=== PATIENT | female | born 1945 | race Caucasian/White ===

== ENCOUNTER 2022-01-07 10:04 | Inpatient (IN) | payer MEDICARE ==
[2022-01-07] MEDS ORDERED: SODIUM CHLORIDE 0.9% 500 ML 500 ML IV STA (10:15)
[2022-01-07] MEDS ORDERED: IPRATROPIUM-ALBUTEROL 3 ML NEB INHALATION STA (10:19)
[2022-01-07] MEDS ORDERED: methylPREDNISolone SOD SUCCI 125 MG/2 ML VIAL IV STA (10:23)
--- NOTE | 2022-01-07 10:23 | ED ---
Weakness HPI - General Stated complaint: weakness Time Seen by Provider: 01/07/22 10:05 Source: patient, EMS, RN notes reviewed, old records reviewed - History of Present Illness Initial comments: This is a 76-year-old female presents via EMS from home with complaints of weakness for the past few days. Per EMS patient lives with her daughter who reported patient had a fall 4 days ago. Patient complains of pain to her buttocks, pressure ulcers noted in a linear fashion. Patient denies any headache, chest pain or difficulty in breathing. Per EMS patient has a history of COPD and hypothyroid. She states that she smokes 2 packs a day. Does not use home oxygen. MD Complaint: generalized weakness -: days(s) (4) Location: generalized, other (buttocks) Consistency: constant Worsens with: movement, other (Palpation) - Related Data Home Medications Medication Instructions Recorded Confirmed ALPRAZolam [Xanax] 0.25 mg PO BID PRN 01/07/22 01/07/22 Ipratropium/Albuter 20-100Mcg 1 puff INHALATION RT-QID 01/07/22 01/07/22 [Combivent Respimat 20-100Mcg Inhaler] Levothyroxine Sodium [Synthroid] 175 mcg PO Q48H 01/07/22 01/07/22 RX: Citalopram Hydrobromide 30 mg PO DAILY 01/07/22 01/07/22 [CeleXA] RX: Levothyroxine Sodium 150 mcg PO Q48H 01/07/22 01/07/22 risperiDONE [RisperDAL] 2 mg PO HS 01/07/22 01/07/22 Allergies Allergy/AdvReac Type Severity Reaction Status Date / Time procaine [From Novocain] Allergy Dyspnea & Verified 01/07/22 11:59 Hallucinations Review of Systems ROS Statement: Those systems with pertinent positive or pertinent negative responses have been documented in the HPI. ROS Other: All systems not noted in ROS Statement are negative. General Exam Limitations: no limitations General appearance: alert, in no apparent distress Head exam: Present: atraumatic, normocephalic Eye exam: Present: normal appearance. Absent: scleral icterus, conjunctival injection, periorbital swelling, periorbital tenderness ENT exam: Present: mucous membranes dry Neck exam: Present: normal inspection. Absent: tenderness, meningismus, lymphadenopathy, thyromegaly Respiratory exam: Present: wheezes, rales. Absent: respiratory distress, stridor, chest wall tenderness, accessory muscle use GI/Abdominal exam: Present: soft. Absent: distended, tenderness, rigid Rectal exam: Present: normal rectal tone. Absent: bloody stool, mass, tenderness External exam: Present: other (Multiple linear pressure ulcers to sacrum and buttocks, broken blisters) Extremities exam: Present: pedal edema (1+ bilaterally; right leg cool to touch from knee distal with delayed capillary refill). Absent: tenderness, calf tenderness Right Knee exam: Present: full knee extension. Absent: tenderness, swelling Lower Leg exam: Present: swelling. Absent: tenderness Ankle exam: Present: swelling. Absent: tenderness Foot/Toe exam: Present: swelling. Absent: tenderness Neurovascular tendon exam: Present: abnormal cap refill, extremity cold to touch. Absent: pallor, foot drop Left Knee exam: Present: full knee extension. Absent: tenderness, swelling Lower Leg exam: Present: swelling. Absent: tenderness Ankle exam: Present: swelling. Absent: tenderness Foot/Toe exam: Present: swelling. Absent: tenderness Neurovascular tendon exam: Present: no vascular compromise. Absent: abnormal cap refill, extremity cold to touch, pallor, foot drop Back exam: Absent: tenderness, CVA tenderness (R), CVA tenderness (L), paraspinal tenderness, vertebral tenderness, rash noted Neurological exam: Present: alert, oriented X3 Psychiatric exam: Present: normal affect, normal mood Skin exam: Present: warm, dry. Absent: cyanosis, petechiae Course Vital Signs 01/07/22 01/07/22 01/07/22 10:06 10:48 10:51 Temperature 97.4 F L Pulse Rate 87 87 90 Respiratory 20 19 Rate Blood Pressure 95/58 73/45 Blood Pressure 73/45 [Right Arm] O2 Sat by Pulse 87 L 91 L Oximetry 01/07/22 01/07/22 01/07/22 10:57 11:00 11:30 Temperature Pulse Rate 94 88 Respiratory 18 20 20 Rate Blood Pressure 74/50 81/51 Blood Pressure 74/50 81/51 [Right Arm] O2 Sat by Pulse 88 L 90 L Oximetry 01/07/22 01/07/22 01/07/22 13:00 13:52 14:00 Temperature Pulse Rate 86 81 84 Respiratory 16 16 16 Rate Blood Pressure 92/57 91/59 90/62 Blood Pressure [Right Arm] O2 Sat by Pulse 90 L 90 L 91 L Oximetry 01/07/22 14:17 Temperature 96.7 F L Pulse Rate 89 Respiratory 16 Rate Blood Pressure 102/72 Blood Pressure [Right Arm] O2 Sat by Pulse 91 L Oximetry - Reevaluation(s) Reevaluation #1: 01/07/22 10:56 DuoNeb treatment and Solu-Medrol given, oxygen saturation has increased to 93% on 6 L nasal cannula. Patient remains hypotensive, 500 mL bolus ordered. Bilateral radial pulses present and strong. 01/07/22 11:02 Time: 10:56 Reevaluation #2: 01/07/22 12:55 Patient remains awake and alert. No complaints of chest pain or difficulty breathing. Blood pressure remains hypotensive. D-dimer is elevated. Creatinine elevated therefore VQ scan was ordered. Case was discussed with Dr. Nolasco who did come down to bedside to evaluate patient. Time: 12:55 EKG Findings - EKG Results: EKG shows: atrial fibrillation (atrial fibrillation with a ventricular rate of 86, QRS 0.93, QTC 0.407; normal axis; no old EKG to compare) Medical Decision Making - Medical Decision Making Patient presents by EMS with weakness for the past few days and fall 4 days ago. She was found by EMS to be hypotensive with systolic in the 70s, given 500 mL bolus by EMS. She does have a history of hypothyroidism and COPD. Continues to smoke 2 packs of cigarettes a day. Does not use home oxygen. Patient is alert and oriented 4. Denies any pain or difficulty breathing. Only complaint is pain to her buttocks. EKG interpreted by me shows atrial fibrillation with a ventricular rate of 86, P QRS 0.93, QTC 0.407. Patient has no history of atrial fibrillation. Troponin negative at 0.012. Electrolytes show sodium of 129, BUN of 76 with creatinine of 1.92. CK-MB is negative. Magnesium is 2.2. D-dimer is 3.94 due to elevation in creatinine VQ scan was ordered. Ultrasounds done for bilateral leg swelling and cool right lower extremity : Ultrasound bilateral lower extremities negative for DVT. Radiologist interpretation, no ultrasound evidence for DVT in either lower extremity. There is normal flow compressibility and vascular waveforms. Chest x-ray completed for hypoxia : Chest x-ray interpreted by me shows increased lung markings. Radiologist impression small bilateral pleural effusions with multifocal areas of increased markings that could reflect atypical infiltrates or edema. CT brain and C-spine completed due to patient's fall 4 days ago with increased weakness. CT interpreted by me shows no acute skull fracture, no intracranial bleed no midline shift. Radiologist interpretation no acute intracranial process. Degenerative disc changes. Minimal retrolisthesis of C4 on C5 and C5 on C6. Spinal canal stenosis due to endplate spurring at C5-C6. No acute osseous abnormality of the cervical spine. Patient is covid positive. Dr. Nolasco at bedside, consulted ICU for admission. - Lab Data Result diagrams: 01/07/22 12:20 01/07/22 10:31 Lab Results 01/07/22 01/07/22 01/07/22 Range/Units 10:31 10:31 10:31 WBC (3.8-10.6) k/uL RBC (3.80-5.40) m/uL Hgb (11.4-16.0) gm/dL Hct (34.0-46.0) % MCV (80.0-100.0) fL MCH (25.0-35.0) pg MCHC (31.0-37.0) g/dL RDW (11.5-15.5) % Plt Count (150-450) k/uL MPV Neutrophils % % Neutrophils % (Manual) % Band Neuts % (Manual) % Lymphocytes % % Lymphocytes % (Manual) % Monocytes % % Monocytes % (Manual) % Eosinophils % % Basophils % % Neutrophils # (1.3-7.7) k/uL Neutrophils # (Manual) (1.3-7.7) k/uL Lymphocytes # (1.0-4.8) k/uL Lymphocytes # (Manual) (1.0-4.8) k/uL Monocytes # (0-1.0) k/uL Monocytes # (Manual) (0-1.0) k/uL Eosinophils # CULIN[employer] ARTIST Basophils # (0-0.2) k/uL Nucleated RBCs (0-0) /100 WBC Manual Slide Review Hypochromasia PT 12.2 H (9.0-12.0) sec INR 1.2 H (<1.2) APTT 27.1 (22.0-30.0) sec D-Dimer 3.94 H (<0.60) mg/L FEU Sodium 129 L (137-145) mmol/L Potassium 5.1 (3.5-5.1) mmol/L Chloride 99 (98-107) mmol/L Carbon Dioxide 23 (22-30) mmol/L Anion Gap 7 mmol/L BUN 76 H (7-17) mg/dL Creatinine 1.92 H (0.52-1.04) mg/dL Est GFR (CKD-EPI)AfAm 29 (>60 ml/min/1.73 sqM) Est GFR (CKD-EPI)NonAf 25 (>60 ml/min/1.73 sqM) Glucose 102 H (74-99) mg/dL Plasma Lactic Acid Marshall (0.7-2.0) mmol/L Calcium 7.4 L (8.4-10.2) mg/dL Magnesium 2.2 (1.6-2.3) mg/dL Total Bilirubin 1.1 (0.2-1.3) mg/dL AST 37 H (14-36) U/L ALT 13 (4-34) U/L Alkaline Phosphatase 65 (38-126) U/L CK-MB (CK-2) (0.0-2.4) ng/mL Troponin I (0.000-0.034) ng/mL NT-Pro-B Natriuret Pep pg/mL Total Protein 4.4 L (6.3-8.2) g/dL Albumin 2.1 L (3.5-5.0) g/dL Urine Color Urine Appearance (Clear) Urine pH (5.0-8.0) Ur Specific [place] (1.001-1.035) Urine Protein (Negative) Urine Glucose (UA) (Negative) Urine Ketones (Negative) Urine Blood (Negative) Urine Nitrite (Negative) Urine Bilirubin (Negative) Urine Urobilinogen (<2.0) mg/dL Ur Leukocyte Esterase (Negative) Urine RBC (0-5) /hpf Urine WBC (0-5) /hpf Ur Squamous Epith Cells (0-4) /hpf Urine Bacteria (None) /hpf Hyaline Casts (0-2) /lpf Urine Mucus (None) /hpf Stool Occult Blood (Negative) Coronavirus (PCR) (Not Detectd) 01/07/22 01/07/22 01/07/22 Range/Units 10:31 10:31 10:31 WBC (3.8-10.6) k/uL RBC (3.80-5.40) m/uL Hgb (11.4-16.0) gm/dL Hct (34.0-46.0) % MCV (80.0-100.0) fL MCH (25.0-35.0) pg MCHC (31.0-37.0) g/dL RDW (11.5-15.5) % Plt Count (150-450) k/uL MPV Neutrophils % % Neutrophils % (Manual) % Band Neuts % (Manual) % Lymphocytes % % Lymphocytes % (Manual) % Monocytes % % Monocytes % (Manual) % Eosinophils % % Basophils % % Neutrophils # (1.3-7.7) k/uL Neutrophils # (Manual) (1.3-7.7) k/uL Lymphocytes # (1.0-4.8) k/uL Lymphocytes # (Manual) (1.0-4.8) k/uL Monocytes # (0-1.0) k/uL Monocytes # (Manual) (0-1.0) k/uL Eosinophils # Basophils # (0-0.2) k/uL Nucleated RBCs (0-0) /100 WBC Manual Slide Review Hypochromasia PT (9.0-12.0) sec INR (<1.2) APTT (22.0-30.0) sec D-Dimer (<0.60) mg/L FEU Sodium (137-145) mmol/L Potassium (3.5-5.1) mmol/L Chloride (98-107) mmol/L Carbon Dioxide (22-30) mmol/L Anion Gap mmol/L BUN (7-17) mg/dL Creatinine (0.52-1.04) mg/dL Est GFR (CKD-EPI)AfAm (>60 ml/min/1.73 sqM) Est GFR (CKD-EPI)NonAf (>60 ml/min/1.73 sqM) Glucose (74-99) mg/dL Plasma Lactic Acid Marshall 1.7 (0.7-2.0) mmol/L Calcium (8.4-10.2) mg/dL Magnesium (1.6-2.3) mg/dL Total Bilirubin (0.2-1.3) mg/dL AST (14-36) U/L ALT (4-34) U/L Alkaline Phosphatase (38-126) U/L CK-MB (CK-2) 2.0 (0.0-2.4) ng/mL Troponin I <0.012 (0.000-0.034) ng/mL NT-Pro-B Natriuret Pep 2580 pg/mL Total Protein (6.3-8.2) g/dL Albumin (3.5-5.0) g/dL Urine Color Urine Appearance (Clear) Urine pH (5.0-8.0) Ur Specific [place] (1.001-1.035) Urine Protein (Negative) Urine Glucose (UA) (Negative) Urine Ketones (Negative) Urine Blood (Negative) Urine Nitrite (Negative) Urine Bilirubin (Negative) Urine Urobilinogen (<2.0) mg/dL Ur Leukocyte Esterase (Negative) Urine RBC (0-5) /hpf Urine WBC (0-5) /hpf Ur Squamous Epith Cells (0-4) /hpf Urine Bacteria (None) /hpf Hyaline Casts (0-2) /lpf Urine Mucus (None) /hpf Stool Occult Blood (Negative) Coronavirus (PCR) (Not Detectd) 01/07/22 01/07/22 01/07/22 Range/Units 10:31 12:20 13:40 WBC 14.4 H (3.8-10.6) k/uL RBC 4.42 (3.80-5.40) m/uL Hgb 12.2 (11.4-16.0) gm/dL Hct 37.9 (34.0-46.0) % MCV 85.7 (80.0-100.0) fL MCH 27.7 (25.0-35.0) pg MCHC 32.3 (31.0-37.0) g/dL RDW 14.2 (11.5-15.5) % Plt Count 476 H (150-450) k/uL MPV 8.5 Neutrophils % % Neutrophils % (Manual) 83 % Band Neuts % (Manual) 9 % Lymphocytes % % Lymphocytes % (Manual) 5 % Monocytes % % Monocytes % (Manual) 3 % Eosinophils % % Basophils % % Neutrophils # (1.3-7.7) k/uL Neutrophils # (Manual) 13.20 H (1.3-7.7) k/uL Lymphocytes # (1.0-4.8) k/uL Lymphocytes # (Manual) 0.72 L (1.0-4.8) k/uL Monocytes # (0-1.0) k/uL Monocytes # (Manual) 0.43 (0-1.0) k/uL Eosinophils # Basophils # (0-0.2) k/uL Nucleated RBCs 0 (0-0) /100 WBC Manual Slide Review Performed Hypochromasia Slight PT (9.0-12.0) sec INR (<1.2) APTT (22.0-30.0) sec D-Dimer (<0.60) mg/L FEU Sodium (137-145) mmol/L Potassium (3.5-5.1) mmol/L Chloride (98-107) mmol/L Carbon Dioxide (22-30) mmol/L Anion Gap mmol/L BUN (7-17) mg/dL Creatinine (0.52-1.04) mg/dL Est GFR (CKD-EPI)AfAm (>60 ml/min/1.73 sqM) Est GFR (CKD-EPI)NonAf (>60 ml/min/1.73 sqM) Glucose (74-99) mg/dL Plasma Lactic Acid Marshall (0.7-2.0) mmol/L Calcium (8.4-10.2) mg/dL Magnesium (1.6-2.3) mg/dL Total Bilirubin (0.2-1.3) mg/dL AST (14-36) U/L ALT (4-34) U/L Alkaline Phosphatase (38-126) U/L CK-MB (CK-2) (0.0-2.4) ng/mL Troponin I (0.000-0.034) ng/mL NT-Pro-B Natriuret Pep pg/mL Total Protein (6.3-8.2) g/dL Albumin (3.5-5.0) g/dL Urine Color Yellow Urine Appearance Cloudy H (Clear) Urine pH 5.0 (5.0-8.0) Ur Specific [place] 1.016 (1.001-1.035) Urine Protein 1+ H (Negative) Urine Glucose (UA) Negative (Negative) Urine Ketones Negative (Negative) Urine Blood Trace H (Negative) Urine Nitrite Negative (Negative) Urine Bilirubin 1+ H (Negative) Urine Urobilinogen 3.0 (<2.0) mg/dL Ur Leukocyte Esterase Negative (Negative) Urine RBC 1 (0-5) /hpf Urine WBC 4 (0-5) /hpf Ur Squamous Epith Cells 1 (0-4) /hpf Urine Bacteria Rare H (None) /hpf Hyaline Casts 18 H (0-2) /lpf Urine Mucus Occasional H (None) /hpf Stool Occult Blood Negative (Negative) Coronavirus (PCR) (Not Detectd) 01/07/22 Range/Units 13:41 WBC (3.8-10.6) k/uL RBC (3.80-5.40) m/uL Hgb (11.4-16.0) gm/dL Hct (34.0-46.0) % MCV (80.0-100.0) fL MCH (25.0-35.0) pg MCHC (31.0-37.0) g/dL RDW (11.5-15.5) % Plt Count (150-450) k/uL MPV Neutrophils % % Neutrophils % (Manual) % Band Neuts % (Manual) % Lymphocytes % % Lymphocytes % (Manual) % Monocytes % % Monocytes % (Manual) % Eosinophils % % Basophils % % Neutrophils # (1.3-7.7) k/uL Neutrophils # (Manual) (1.3-7.7) k/uL Lymphocytes # (1.0-4.8) k/uL Lymphocytes # (Manual) (1.0-4.8) k/uL Monocytes # (0-1.0) k/uL Monocytes # (Manual) (0-1.0) k/uL Eosinophils # Basophils # (0-0.2) k/uL Nucleated RBCs (0-0) /100 WBC Manual Slide Review Hypochromasia PT (9.0-12.0) sec INR (<1.2) APTT (22.0-30.0) sec D-Dimer (<0.60) mg/L FEU Sodium (137-145) mmol/L Potassium (3.5-5.1) mmol/L Chloride (98-107) mmol/L Carbon Dioxide (22-30) mmol/L Anion Gap mmol/L BUN (7-17) mg/dL Creatinine (0.52-1.04) mg/dL Est GFR (CKD-EPI)AfAm (>60 ml/min/1.73 sqM) Est GFR (CKD-EPI)NonAf (>60 ml/min/1.73 sqM) Glucose (74-99) mg/dL Plasma Lactic Acid [place] (0.7-2.0) mmol/L Calcium (8.4-10.2) mg/dL Magnesium (1.6-2.3) mg/dL Total Bilirubin (0.2-1.3) mg/dL AST (14-36) U/L ALT (4-34) U/L Alkaline Phosphatase (38-126) U/L CK-MB (CK-2) (0.0-2.4) ng/mL Troponin I (0.000-0.034) ng/mL NT-Pro-B Natriuret Pep pg/mL Total Protein (6.3-8.2) g/dL Albumin (3.5-5.0) g/dL Urine Color Urine Appearance (Clear) Urine pH (5.0-8.0) Ur Specific [place] (1.001-1.035) Urine Protein (Negative) Urine Glucose (UA) (Negative) Urine Ketones (Negative) Urine Blood (Negative) Urine Nitrite (Negative) Urine Bilirubin (Negative) Urine Urobilinogen (<2.0) mg/dL Ur Leukocyte Esterase (Negative) Urine RBC (0-5) /hpf Urine WBC (0-5) /hpf Ur Squamous Epith Cells (0-4) /hpf Urine Bacteria (None) /hpf Hyaline Casts (0-2) /lpf Urine Mucus (None) /hpf Stool Occult Blood (Negative) Coronavirus (PCR) Detected A (Not Detectd) Critical Care Time Critical Care Time: Yes (35) Disposition Clinical Impression: Hypoxia, Atrial fibrillation, new onset, COPD exacerbation, Weakness, Fall, Pressure ulcer of sacral region, stage 2, Hypotension, NIKOS (acute kidney injury), COVID-19 Disposition: ADMITTED IP TO THIS [facility] Decision Date: 01/07/22 Decision Time: 13:13
[2022-01-07] MEDS ORDERED: KETOROLAC 15 MG/ML 1 ML VIAL IM STA (11:18)
[2022-01-07] MEDS ORDERED: ORPHENADRINE 30 MG/ML 2 ML VIAL IM STA (11:18)
[2022-01-07 11:36] LABS: Albumin 2.1 g/dL (3.5-5.0); Calcium 7.4 mg/dL (8.4-10.2); Magnesium 2.2 mg/dL (1.6-2.3); Potassium 5.1 mmol/L (3.5-5.1); Total Bilirubin 1.1 mg/dL (0.2-1.3); Total Protein 4.4 g/dL (6.3-8.2)
[2022-01-07 11:39] LABS: INR 1.2 (<1.2); Partial Thromboplastin Time 27.1 sec (22.0-30.0); Prothrombin Time 12.2 sec (9.0-12.0)
[2022-01-07 11:54] LABS: Troponin I <0.012 ng/mL (0.000-0.034)
--- NOTE | 2022-01-07 11:57 | US ---
EXAMINATION TYPE: US venous doppler duplex LE DATE OF EXAM: 01/07/2022 11:52 AM COMPARISON: NONE CLINICAL HISTORY: pain cold extremity. SIDE PERFORMED: Bilateral TECHNIQUE: The lower extremity deep venous system is examined utilizing real time linear array sonog jamila with graded compression, doppler sonography and color-flow sonography. VESSELS IMAGED: Common Femoral Vein Deep Femoral Vein Greater Saphenous Vein * Femoral Vein Popliteal Vein Small Saphenous Vein * Proximal Calf Veins (* superficial vessels) Right Leg: Negative for DVT Left Leg: Negative for DVT Grayscale, color doppler, spectral doppler imaging performed of the deep veins of the bilateral lower extremities. There is normal flow, compressibility, vascular waveforms. IMPRESSION: No ultrasound evidence for acute DVT in either lower extremity.
--- NOTE | 2022-01-07 12:08 | XR ---
EXAMINATION TYPE: XR chest 2V DATE OF EXAM: 01/07/2022 COMPARISON: NONE HISTORY: Weakness. TECHNIQUE: Frontal and lateral views of the chest are obtained. FINDINGS: Reticular increased markings bilaterally. Small to tiny bilateral pleural effusions. No pn eumothorax seen bilaterally. The cardiac silhouette size is within normal limits. The osseous struc tures are intact. IMPRESSION: Small to tiny bilateral pleural effusions with multifocal areas of increased reticular m arkings could reflect multifocal atypical infiltrates and/or edema. Background Chronic fibrotic redding e cannot be excluded. Correlate clinically and with old outside x-ray and/or CT would be extremely be neficial.
--- NOTE | 2022-01-07 12:27 | CT ---
EXAMINATION TYPE: CT brain bel hooker con DATE OF EXAM: 01/07/2022 COMPARISON: HISTORY: Fall, weakness CT DLP: 1344.3 mGycm, Automated exposure control for dose reduction was used. CONTRAST: None CT of the brain is performed utilizing 3 mm thick sections through the posterior fossa and 3 mm thick sections through the remaining calvarium. Study is performed within 24 hours of arrival to the hospital. No abnormal hyperdensity is present to suggest an acute intracranial hemorrhage. No mass lesion is evident. No acute infarcts are evident. Mild scattered periventricular white matter hypodensities are present , likely on the basis of chronic white matter ischemic change. Ventricles and sulci are diffusely mildly prominent for the patient age. Air-fluid levels are within the bilateral maxillary sinuses. Correlate for acute maxillary sinusitis. No suspicious fractures are identified. IMPRESSIONS: 1. No acute intracranial process. CT cervical spine. COMPARISON: None CT of the cervical spine is performed in the axial plane at 2 mm thick sections. Reconstructed image s in the coronal, and sagittal plane are reviewed on the computer. No acute fractures are evident. Very minimal retrolisthesis of C4 on C5 and C5 on C6 may be present. There is diffuse loss of disc height throughout the cervical spine greatest at C4-5 C5-6 C6-7 and C7- T1. Vertebral body heights are preserved. Endplate spurring is contributing to spinal canal narrowing at the C5-6 level. AP spinal canal stenos is is 0.7 cm. Mild right foraminal narrowing is present at C3-4 from uncovertebral joint hypertrophy and facet hype rtrophy. Uncovertebral joint hypertrophy is moderate bilateral foraminal stenosis C4-5 and on the lef t at C5-6. More severe right foraminal stenosis from uncovertebral joint hypertrophy is present C5-6. Moderate right foraminal stenosis at C6-7 is present from uncovertebral joint hypertrophy. Note is made of pulmonary fibrosis within the upper lung singleton. Underlying consolidation or infiltra te on the right may be present. Correlate for pneumonia. Other etiologies including neoplasm are not excluded. IMPRESSIONS: 1. Minimal retrolisthesis of C4 on C5 and C5 on C6 may be present. 2. Degenerative disc changes diffusely discussed above. 3. Foraminal stenosis due to uncovertebral joint hypertrophy within the mid and lower cervical spine. 4. Correlate for pneumonia versus other etiologies including pulmonary fibrosis and neoplasm within t he upper lung singleton greater at the right upper lung field within the [id number]. 5. Spinal canal stenosis due to endplate spurring C5-6. 6. No acute osseous abnormality cervical spine.
[2022-01-07 12:45] LABS: HCT 37.9 % (34.0-46.0); HGB 12.2 gm/dL (11.4-16.0); Hypochromasia Slight; MCH 27.7 pg (25.0-35.0); MCHC 32.3 g/dL (31.0-37.0); MCV 85.7 fL (80.0-100.0); Mean Platelet Volume 8.5; Platelet Count 476 k/uL (150-450); RBC 4.42 m/uL (3.80-5.40); RDW 14.2 % (11.5-15.5); WBC 14.4 k/uL (3.8-10.6)
[2022-01-07] MEDS ORDERED: PIPERACILLIN-TAZOBACTAM 3.375 GM in SODIUM CHLORIDE 0.9% 100 ML IVPB STA (12:51)
[2022-01-07] MEDS ORDERED: SODIUM CHLORIDE 0.9% 1,000 ML IV STA (12:53)
[2022-01-07] MEDS ORDERED: VANCOMYCIN IV PER PHARMACY 1 EACH MISC MISCELLANE PRN (12:53)
[2022-01-07] MEDS ORDERED: NOREPINEPHRINE 4 MG in SODIUM CHLORIDE 0.9% 250 ML IV ONE (13:00)
[2022-01-07 13:32] LABS: Band Neutrophils % 9 %; Lymphocytes # (M) 0.72 k/uL (1.0-4.8); Monocytes # (M) 0.43 k/uL (0-1.0); Neutrophils % (M) 83 %; Nucleated Red Blood Cells 0 /100 WBC (0-0); Total Cells Counted 100
[2022-01-07] MEDS ORDERED: VANCOMYCIN 1,250 MG in SODIUM CHLORIDE 0.9% 250 ML IVPB ONE (14:00)
[2022-01-07] MEDS ORDERED: NALOXONE 0.4 MG/ML 1 ML VIAL IV PRN (14:04)
[2022-01-07] MEDS: SODIUM CHLORIDE 0.9% 1,000 ML IV SCH ×2 (14:08→21:06)
[2022-01-07] MEDS: PANTOPRAZOLE 40 MG/10 ML VIAL IV SCH (14:11)
[2022-01-07 14:25] LABS: Appearance,Urine Cloudy (Clear); Bacteria,Urine Rare /hpf; Bilirubin,Urine 1+ (Negative); Blood,Urine Trace (Negative); Color,Urine Yellow; Glucose,Urine (UA) Negative (Negative); Hyaline Casts,Urine 18 /lpf (0-2); Ketones,Urine Negative (Negative); Leukocyte Esterase,Urine Negative (Negative); Mucus,Urine Occasional /hpf; Nitrite,Urine Negative (Negative); Protein,Urine 1+ (Negative); RBC,Urine 1 /hpf (0-5); Specific Gravity,Urine 1.016 (1.001-1.035); Squamous Epithelial Cell,Urine 1 /hpf (0-4); WBC,Urine 4 /hpf (0-5)
--- NOTE | 2022-01-07 15:02 | P.CNPUL ---
History of Present Illness Consult date: 01/07/22 Requesting physician: Gini Wayne Reason for consult: pneumonia Chief complaint: Weakness for the last 4 days History of present illness: This is a 76-year-old female who is not a great historian, her daughter is at bedside, patient is known to have history of hypothyroidism, COPD, history gene ralized anxiety disorder, patient has been weak for the last few days. According to the daughter, patient fell 4 days ago, and has been complaining of pain to her buttocks. Patient also had some intermittent cough, shortness of breath, and according to the daughter the patient has not been taking her medications including her thyroid medicine and her Combivent for COPD. Patient is a heavy smoker, she smoked 2 packs a day for many years. Does not use oxygen at home. Workup in the ER included a CBC which showed leukocytosis. Elevated d-dimer of 3.94. Abnormal renal profile with a BUN of 76 creatinine of 1.92 and low sodium of 129, elevated BNP level of 2580, normal troponin, and normal liver enzymes. Patient was also noted to have positive PCR for COVID-19, chest x-ray showed multifocal reticular markings and multifocal atypical infiltrates. Possible underlying pulmonary fibrosis. No old x-ray for comparison. Patient was also noted to be relatively hypotensive requiring fluid boluses with slight improvement of the blood pressure. I saw this patient in the ER, and I recommen ded admitting the patient to the ICU. In the meantime I ordered a high- resolution CT of the chest, started the patient on Remdesivir, patient is on 6 L nasal cannula, recommended fluid boluses, empiric antibiotics, pro-calcitonin level is pending, and order the COVID-19 cocktail. Review of Systems Constitutional: Weakness and fatigue no fever, no chills. HEENT: Negative. Pulmonary: Productive cough with yellow phlegm. Cardiac: Negative GI: Negative Genitourinary: Negative Musculoskeletal: Recent fall and pain in the buttocks area. Hematologic: Negative Psychiatric: History of anxiety and possible underlying dementia Neurologic: Negative Skin: Negative. Past Medical History Past Medical History: COPD History of Any Multi-Drug Resistant Organisms: None Reported Past Surgical History: Unable to Obtain Past Psychological History: No Psychological Hx Reported Smoking Status: Current every day smoker Past Alcohol Use History: Unable to Obtain Past Drug Use History: Unable to Obtain Medications and Allergies Home Medications Medication Instructions Recorded Confirmed Type ALPRAZolam [Xanax] 0.25 mg PO BID PRN 01/07/22 01/07/22 History Citalopram Hydrobromide [CeleXA] 30 mg PO DAILY 01/07/22 01/07/22 History Ipratropium/Albuter 20-100Mcg 1 puff INHALATION RT-QID 01/07/22 01/07/22 History [Combivent Respimat 20-100Mcg Inhaler] Levothyroxine Sodium 150 mcg PO Q48H 01/07/22 01/07/22 History Levothyroxine Sodium [Synthroid] 175 mcg PO Q48H 01/07/22 01/07/22 History risperiDONE [RisperDAL] 2 mg PO HS 01/07/22 01/07/22 History Allergies Allergy/AdvReac Type Severity Reaction Status Date / Time procaine [From Novocain] Allergy Dyspnea & Verified 01/07/22 11:59 Hallucinations Physical Exam Vitals: Vital Signs Temp Pulse Resp BP BP Pulse Ox 01/07/22 14:17 96.7 F L 89 16 102/72 91 L 01/07/22 14:00 84 16 90/62 91 L 01/07/22 13:52 81 16 91/59 90 L 01/07/22 13:00 86 16 92/57 90 L 01/07/22 11:30 20 01/07/22 11:00 88 20 81/51 81/51 90 L 01/07/22 10:57 94 18 74/50 74/50 88 L 01/07/22 10:51 90 19 73/45 73/45 91 L 01/07/22 10:48 87 01/07/22 10:06 97.4 F L 87 20 95/58 87 L Intake and Output 01/06/22 01/07/22 01/07/22 22:59 06:59 14:59 Other: Weight 61.235 kg Physical Exam: Revealed 76-year-old female in no distress however she looks confused, dehydrated, on 6 L nasal cannula. Head: Atraumatic, normocephalic. HEENT:[Neck is supple.] [No neck masses.] [No thyromegaly.] [No JVD.] Dry mucous membranes. Chest: [Symmetrical chest expansion crackles at the bases bilaterally. Cardiac Exam: [Normal S1 and S2, no S3 gallop, no murmur.] Abdomen: [Soft, nontender, no megaly, no rebound, no guarding, normal bowel sounds.] Extremities: [No clubbing, no edema, no cyanosis.] Neurological Exam: [No focal neurologic deficit.] Patient is a poor historian and she seems confused. Psychiatric: Depressed mood, flat affect, cannot fully assess mental status. Patient seems to be a bit confused. Skin: No rashes. Musculoskeletal: No deformities and no limitation of range of motion Results - Laboratory Findings CBC and BMP: 01/07/22 12:20 01/07/22 10:31 PT/INR, D-dimer PT 12.2 sec (9.0-12.0) H 01/07/22 10:31 INR 1.2 (<1.2) H 01/07/22 10:31 D-Dimer 3.94 mg/L FEU (<0.60) H 01/07/22 10:31 Abnormal lab findings: Abnormal Labs 01/07/22 01/07/22 01/07/22 10:31 10:31 10:31 WBC Plt Count Neutrophils # (Manual) Lymphocytes # (Manual) PT 12.2 H INR 1.2 H D-Dimer 3.94 H Sodium 129 L BUN 76 H Creatinine 1.92 H Glucose 102 H Calcium 7.4 L AST 37 H Total Protein 4.4 L Albumin 2.1 L Urine Appearance Cloudy H Urine Protein 1+ H Urine Blood Trace H Urine Bilirubin 1+ H Urine Bacteria Rare H Hyaline Casts 18 H Urine Mucus Occasional H Coronavirus (PCR) 01/07/22 01/07/22 12:20 13:41 WBC 14.4 H Plt Count 476 H Neutrophils # (Manual) 13.20 H Lymphocytes # (Manual) 0.72 L PT INR D-Dimer Sodium BUN Creatinine Glucose Calcium AST Total Protein Albumin Urine Appearance Urine Protein Urine Blood Urine Bilirubin Urine Bacteria Hyaline Casts Urine Mucus Coronavirus (PCR) Detected A - Diagnostic Findings Chest x-ray: image reviewed (As noted in HPI suspect diffuse interstitial infiltrates and I suspect possible underlying component of interstitial lung disease) Assessment and Plan Assessment: Impression: Acute hypoxic respiratory failure secondary to acute COVID-19 pneumonia, underlying bacterial pneumonia is not entirely ruled out but felt to be less likely, pro-calcitonin level is pending Possible interstitial lung disease/pulmonary fibrosis, likely contributing to her acute hypoxic respiratory failure Hypotension, suspect sepsis, patient is presenting with a septic picture and also dehydration picture. History of underlying COPD does not seem to be active at this point. But likely contributing to her hypoxic respiratory failure History of hypothyroidism History of generalized anxiety disorder Elevated d-dimer but negative venous Doppler for DVT, cannot perform CT angiogram of the chest mostly because of her renal functioning Acute dehydration Acute kidney injury secondary to dehydration Recommendation: Continue present supportive care measures Empiric antibiotics however will discontinue Percocet started level is normal Venous Doppler noted, negative for DVT High-resolution CT of the chest to rule out interstitial lung disease Start patient on Remdesivir, close monitoring of renal profile, I believe the renal profile with improve with hydration COVID-19 cocktail. Bronchodilators and IV Decadron Continue IV fluids and boluses, monitor renal status after IV fluids Lactic acid is pending patient will be admitted to the ICU and we will follow Prognosis is guarded Time with Patient: Greater than 30
--- NOTE | 2022-01-07 15:33 | NM ---
EXAMINATION TYPE: NM pul perfusion DATE OF EXAM: 01/07/2022 COMPARISON: Same day chest x-ray HISTORY: Shortness of breath and weakness. Abnormal chest x-ray. Following administration of 5.2 mCi Tc 99m MAA. Images obtained post injection. FINDINGS: Heterogeneity with several scattered areas of nonsegmental perfusion defects are identified bilaterally. Findings more prominent in the lower lungs. IMPRESSION: Nondiagnostic (low or intermediate probability)
[2022-01-07] MEDS ORDERED: REMDESIVIR 200 MG in SODIUM CHLORIDE 0.9% 250 ML IVPB ONE (16:00)
[2022-01-07 16:10] LABS: Glucose,Whole Blood 110 mg/dL (70-110)
[2022-01-07] MEDS: ALBUTEROL HFA INHALER INHALATION SCH ×2 (16:22→19:23)
[2022-01-07] MEDS: DEXAMETHASONE SOD PHOSPHATE 10 MG/ML 1 ML VIAL IVP SCH (16:26)
[2022-01-07] MEDS: ZINC SULFATE 220 MG CAP PO SCH (16:27)
[2022-01-07] MEDS: CHOLECALCIFEROL 25 MCG (1000 IU) TABLET PO SCH (16:27)
--- NOTE | 2022-01-07 16:27 | P.GSCN ---
History of Present Illness Consult date: 01/07/22 Reason for Consult: Ischemic Right foot Requesting physician: Jayy Nolasco History of present illness: This is a 76 year old female who presented to the emergency room with complaints of weakness. She has a past medical history including hypothyroidism, COPD who smokes 2 PPD. She was alos with complaints of shortness of breath, and pressure sores on her buttocks. Also reported she may have fallen. On admission she was noted to have swelling in right lower extremity and underwent Venous duplex which was negative bilaterally. Right lower extremity was reported as cool to the touch with delayed capillary refill. Vascular surgery was consulted for ischemic right foot. Patient underwent arterial duplex of lower extremities with good waveform and reported IVONNE right 0.86, left 0.83. Patient is positive for COVID-19. Review of Systems Review of systems completed due to patient's decreased responsiveness. She is alert and oriented however difficult to obtain history. ROS unobtainable: due to mental status Past Medical History Past Medical History: COPD History of Any Multi-Drug Resistant Organisms: None Reported Past Surgical History: Unable to Obtain Past Psychological History: No Psychological Hx Reported Smoking Status: Current every day smoker Past Alcohol Use History: Unable to Obtain Past Drug Use History: Unable to Obtain Medications and Allergies Home Medications Medication Instructions Recorded Confirmed Type ALPRAZolam [Xanax] 0.25 mg PO BID PRN 01/07/22 01/07/22 History Citalopram Hydrobromide [CeleXA] 30 mg PO DAILY 01/07/22 01/07/22 History Ipratropium/Albuter 20-100Mcg 1 puff INHALATION RT-QID 01/07/22 01/07/22 History [Combivent Respimat 20-100Mcg Inhaler] Levothyroxine Sodium 150 mcg PO Q48H 01/07/22 01/07/22 History Levothyroxine Sodium [Synthroid] 175 mcg PO Q48H 01/07/22 01/07/22 History risperiDONE [RisperDAL] 2 mg PO HS 01/07/22 01/07/22 History Allergies Allergy/AdvReac Type Severity Reaction Status Date / Time procaine [From Novocain] Allergy Dyspnea & Verified 01/07/22 11:59 Hallucinations Surgical - Exam Vital Signs Temp Pulse Resp BP Pulse Ox 97.4 F L 87 20 95/58 87 L 11/28/22 10:06 01/07/22 10:06 01/07/22 10:06 01/07/22 10:06 01/07/22 10:06 General appearance: The patient is alert, oriented, appears in no acute distress. HET: Head is normocephalic and atraumatic. Pupils are equal and reactive. Neck: Supple without lymphadenopathy. Trachea midline. No audible carotid bruit. Heart: Regular. Lungs: Equal expansion, normal respiratory effort. Abdomen: Soft, nontender, nondistended. Extremities: Normal skin color and turgor. Regular palpable bilateral femoral and popliteal pulses.Right lower extremity with some swelling, non-tender to palpation, slightly cooler to the touch than left lower extremity. Capillary re fill 4-6 seconds. Bilateral DP and PT Doppler signals obtained. Neurological: No focal deficits. Alert and oriented. Results - Labs 01/07/22 12:20 01/07/22 10:31 Abnormal Lab Results - Last 24 Hours (Table) 01/07/22 01/07/22 01/07/22 Range/Units 10:31 10:31 10:31 WBC (3.8-10.6) k/uL Plt Count (150-450) k/uL Neutrophils # (Manual) (1.3-7.7) k/uL Lymphocytes # (Manual) (1.0-4.8) k/uL PT 12.2 H (9.0-12.0) sec INR 1.2 H (<1.2) D-Dimer 3.94 H (<0.60) mg/L FEU Sodium 129 L (137-145) mmol/L BUN 76 H (7-17) mg/dL Creatinine 1.92 H (0.52-1.04) mg/dL Glucose 102 H (74-99) mg/dL Calcium 7.4 L (8.4-10.2) mg/dL AST 37 H (14-36) U/L Total Protein 4.4 L (6.3-8.2) g/dL Albumin 2.1 L (3.5-5.0) g/dL Urine Appearance Cloudy H (Clear) Urine Protein 1+ H (Negative) Urine Blood Trace H (Negative) Urine Bilirubin 1+ H (Negative) Urine Bacteria Rare H (None) /hpf Hyaline Casts 18 H (0-2) /lpf Urine Mucus Occasional H (None) /hpf Coronavirus (PCR) (Not Detectd) 01/07/22 01/07/22 Range/Units 12:20 13:41 WBC 14.4 H (3.8-10.6) k/uL Plt Count 476 H (150-450) k/uL Neutrophils # (Manual) 13.20 H (1.3-7.7) k/uL Lymphocytes # (Manual) 0.72 L (1.0-4.8) k/uL PT (9.0-12.0) sec INR (<1.2) D-Dimer (<0.60) mg/L FEU Sodium (137-145) mmol/L BUN (7-17) mg/dL Creatinine (0.52-1.04) mg/dL Glucose (74-99) mg/dL Calcium (8.4-10.2) mg/dL AST (14-36) U/L Total Protein (6.3-8.2) g/dL Albumin (3.5-5.0) g/dL Urine Appearance (Clear) Urine Protein (Negative) Urine Blood (Negative) Urine Bilirubin (Negative) Urine Bacteria (None) /hpf Hyaline Casts (0-2) /lpf Urine Mucus (None) /hpf Coronavirus (PCR) Detected A (Not Detectd) Diabetes panel 01/07/22 Range/Units 10:31 Sodium 129 L (137-145) mmol/L Potassium 5.1 (3.5-5.1) mmol/L Chloride 99 (98-107) mmol/L Carbon Dioxide 23 (22-30) mmol/L BUN 76 H (7-17) mg/dL Creatinine 1.92 H (0.52-1.04) mg/dL Glucose 102 H (74-99) mg/dL Calcium 7.4 L (8.4-10.2) mg/dL AST 37 H (14-36) U/L ALT 13 (4-34) U/L Alkaline Phosphatase 65 (38-126) U/L Total Protein 4.4 L (6.3-8.2) g/dL Albumin 2.1 L (3.5-5.0) g/dL Calcium panel 01/07/22 Range/Units 10:31 Calcium 7.4 L (8.4-10.2) mg/dL Albumin 2.1 L (3.5-5.0) g/dL Pituitary panel 01/07/22 Range/Units 10:31 Sodium 129 L (137-145) mmol/L Potassium 5.1 (3.5-5.1) mmol/L Chloride 99 (98-107) mmol/L Carbon Dioxide 23 (22-30) mmol/L BUN 76 H (7-17) mg/dL Creatinine 1.92 H (0.52-1.04) mg/dL Glucose 102 H (74-99) mg/dL Calcium 7.4 L (8.4-10.2) mg/dL Adrenal panel 01/07/22 Range/Units 10:31 Sodium 129 L (137-145) mmol/L Potassium 5.1 (3.5-5.1) mmol/L Chloride 99 (98-107) mmol/L Carbon Dioxide 23 (22-30) mmol/L BUN 76 H (7-17) mg/dL Creatinine 1.92 H (0.52-1.04) mg/dL Glucose 102 H (74-99) mg/dL Calcium 7.4 L (8.4-10.2) mg/dL Total Bilirubin 1.1 (0.2-1.3) mg/dL AST 37 H (14-36) U/L ALT 13 (4-34) U/L Alkaline Phosphatase 65 (38-126) U/L Total Protein 4.4 L (6.3-8.2) g/dL Albumin 2.1 L (3.5-5.0) g/dL Assessment and Plan Assessment: 1. Right lower extremity cool to touch, IVONNE 0.86 right, 0.83 left patient with mild peripheral arterial disease. 2. COVID-19 infection 3. COPD 4. Current tobacco abuse, 2 pack per day smoker Plan: Patient was seen and evaluated in the ICU. Right lower extremity mildly cold to the touch compared to left. Slight delay in capillary refill however was able to obtain Doppler signals. Patient with no pain to lower extremities. ABIs reviewed, patient with possible mild peripheral arterial disease. No surgical intervention recommended at this time. We'll continue to monitor. Would recommend outpatient follow-up and continued workup. Thank you for this consultation, we will continue to follow The impression and plan of care has been dictated as directed. Dr. Amaya I performed a history and examination of this patient, discussed the same with the dictator. I agree with the dictator's note ,documented as a scribe. Any additional findings or plans will be noted.t
--- NOTE | 2022-01-07 16:37 | CT ---
EXAMINATION TYPE: CT chest wo con DATE OF EXAM: 01/07/2022 COMPARISON: None HISTORY: Interstitial lung disease. Covid pneumonia. CT DLP: 295.7 mGycm, Automated exposure control for dose reduction was used. CONTRAST: Performed injected with 0 mL of Isovue 300. TECHNIQUE: Axial images were obtained at 5 mm thick sections. Reconstructed images are reviewed on [employer] computer in the coronal plane. FINDINGS: The thyroid is not identified. Extensive infiltrates are within the bilateral lungs. These appear to be predominantly adjacent to th e major fissure bilaterally in the lower dependent lung singleton. Small bilateral pleural effusions may be present. Emphysematous changes are evident. Pulmonary fibrosis could be considered. Suspicious ma ss is not clearly identified although smaller masses may be difficult to identify with the large cons olidations present. Monitoring is recommended. Small scattered nodes are present within the mediastinum. Enlarged mediastinal adenopathy is not adriana ntified. The ascending aorta diameter at the level of the main pulmonary artery is 3.8 cm. The main pulmonary artery diameter at the bifurcation is 2.[address] sections are obtained through the upper abdomen. Mild diffuse thickening of the adrenal gl ands may be present. There is a low density structure within the superior right kidney may be a lipom a. Cholelithiasis is present. IMPRESSIONS: 1. Scattered bilateral consolidations. Infectious etiologies and/or pulmonary fibrosis should be cons idered. Consider atypical pneumonia. 2. Given the diffuse scattered densities, underlying neoplasm would be difficult to exclude. Continue d monitoring is recommended.
[2022-01-07] MEDS ORDERED: SODIUM CHLORIDE 0.9% 1,000 ML IV ONE ×2 (16:51→18:18)
[2022-01-07] MEDS ORDERED: HEPARIN SODIUM 1,000 UN/ML (10ML VL) IV ONE (16:52)
[2022-01-07] MEDS: HEPARIN SOD,PORK IN 0.45% NACL 25,000 UNIT in 0.45% NACL 1 250ML.BAG IV SCH (17:19)
--- NOTE | 2022-01-07 17:57 | P.HPIM ---
History of Present Illness H&P Date: 01/07/22 Samantha Brown, is a 76-year-old female who presented to [facility] emergency room with a chief complaint of generalized weakness, patient's daughter reported in the emergency room that her mother had a fall 4 days prior to presentation She was evaluated in the emergency room vital examination on presentation revealed Laboratory data revealed a white blood count of 14.4 hemoglobin 12.2 platelet count 476 INR 1.2 d-dimer 3.94 sodium 129 potassium 5.1 chloride 99 CO2 23 BUN 76 creatinine 1.92 lactic acid 1.7 Corps on a virus PCR was positive Testing in the emergency room revealed chest x-ray done in emergency room revealed small bilateral pleural effusions and multifocal areas of increased reticular markings, EKG revealed atrial fibrillation with a heart rate of 86 Patient was admitted to medical floor for further evaluation and treatment. Past medical history is significant for history of hypertension, history of hyperlipidemia, history of hypothyroidism, and history of tobacco use patient smokes 2 packs per day Past Medical History Past Medical History: COPD History of Any Multi-Drug Resistant Organisms: None Reported Past Surgical History: Unable to Obtain Past Psychological History: No Psychological Hx Reported Smoking Status: Current every day smoker Past Alcohol Use History: Unable to Obtain Past Drug Use History: Unable to Obtain Medications and Allergies Home Medications Medication Instructions Recorded Confirmed Type ALPRAZolam [Xanax] 0.25 mg PO BID PRN 01/07/22 01/07/22 History Citalopram Hydrobromide [CeleXA] 30 mg PO DAILY 01/07/22 01/07/22 History Ipratropium/Albuter 20-100Mcg 1 puff INHALATION RT-QID 01/07/22 01/07/22 History [Combivent Respimat 20-100Mcg Inhaler] Levothyroxine Sodium 150 mcg PO Q48H 01/07/22 01/07/22 History Levothyroxine Sodium [Synthroid] 175 mcg PO Q48H 01/07/22 01/07/22 History risperiDONE [RisperDAL] 2 mg PO HS 01/07/22 01/07/22 History Allergies Allergy/AdvReac Type Severity Reaction Status Date / Time procaine [From Novocain] Allergy Dyspnea & Verified 01/07/22 11:59 Hallucinations Physical Exam Vitals: Vital Signs Temp Pulse Resp BP BP Pulse Ox 11/28/22 17:20 84 8 L 73/38 96 01/07/22 17:00 81 17 97/75 97 01/07/22 16:40 87 21 86/58 95 01/07/22 16:30 78 26 H 89/45 93 L 01/07/22 16:20 84 24 89/45 90 L 01/07/22 16:10 82 8 L 89/45 92 L 01/07/22 15:49 97.6 F 76 16 85/54 92 L 01/07/22 15:10 97.5 F L 82 16 92/58 91 L 01/07/22 14:17 96.7 F L 89 16 102/72 91 L 01/07/22 14:00 84 16 90/62 91 L 01/07/22 13:52 81 16 91/59 90 L 01/07/22 13:00 86 16 92/57 90 L 01/07/22 11:30 20 01/07/22 11:00 88 20 81/51 81/51 90 L 01/07/22 10:57 94 18 74/50 74/50 88 L 01/07/22 10:51 90 19 73/45 73/45 91 L 01/07/22 10:48 87 01/07/22 10:06 97.4 F L 87 20 95/58 87 L Intake and Output 01/07/22 01/07/22 01/07/22 06:59 14:59 22:59 Output Total 275 Balance -275 Output: Urine 275 Other: Weight 61.235 kg In general patient is alert and oriented x 3 in no distress HEENT head normocephalic and atraumatic Neck is supple no JVD no goiter no lymphadenopathy no carotid bruit Chest examination reveals a scattered crackles bilaterally with mild wheezing Cardiac exam reveals regular heart sounds S1 and S2 no gallops no murmurs Abdomen is soft nontender no organomegaly with normal bowel sounds Extremity exam reveals no edema no cyanosis or clubbing, poor pulses peripherally Neurological examination reveals no gross focal deficits Results CBC & Chem 7: 01/07/22 12:20 01/07/22 10:31 Labs: Abnormal Lab Results - Last 24 Hours (Table) 01/07/22 01/07/22 01/07/22 Range/Units 10:31 10:31 10:31 WBC (3.8-10.6) k/uL Plt Count (150-450) k/uL Neutrophils # (Manual) (1.3-7.7) k/uL Lymphocytes # (Manual) (1.0-4.8) k/uL PT 12.2 H (9.0-12.0) sec INR 1.2 H (<1.2) D-Dimer 3.94 H (<0.60) mg/L FEU Sodium 129 L (137-145) mmol/L BUN 76 H (7-17) mg/dL Creatinine 1.92 H (0.52-1.04) mg/dL Glucose 102 H (74-99) mg/dL Calcium 7.4 L (8.4-10.2) mg/dL AST 37 H (14-36) U/L Total Protein 4.4 L (6.3-8.2) g/dL Albumin 2.1 L (3.5-5.0) g/dL Urine Appearance Cloudy H (Clear) Urine Protein 1+ H (Negative) Urine Blood Trace H (Negative) Urine Bilirubin 1+ H (Negative) Urine Bacteria Rare H (None) /hpf Hyaline Casts 18 H (0-2) /lpf Urine Mucus Occasional H (None) /hpf Coronavirus (PCR) (Not Detectd) 01/07/22 01/07/22 Range/Units 12:20 13:41 WBC 14.4 H (3.8-10.6) k/uL Plt Count 476 H (150-450) k/uL Neutrophils # (Manual) 13.20 H (1.3-7.7) k/uL Lymphocytes # (Manual) 0.72 L (1.0-4.8) k/uL PT (9.0-12.0) sec INR (<1.2) D-Dimer (<0.60) mg/L FEU Sodium (137-145) mmol/L BUN (7-17) mg/dL Creatinine (0.52-1.04) mg/dL Glucose (74-99) mg/dL Calcium (8.4-10.2) mg/dL AST (14-36) U/L Total Protein (6.3-8.2) g/dL Albumin (3.5-5.0) g/dL Urine Appearance (Clear) Urine Protein (Negative) Urine Blood (Negative) Urine Bilirubin (Negative) Urine Bacteria (None) /hpf Hyaline Casts (0-2) /lpf Urine Mucus (None) /hpf Coronavirus (PCR) Detected A (Not Detectd) Assessment and Plan Plan: Acute hypoxic respiratory failure Acute coronary 19 pneumonia Underlying history of chronic obstructive pulmonary disease Sepsis as evidenced by leukocytosis, tachycardia, mild elevation in lactic acid and hypotension Elevated d-dimer Acute kidney injury possibly related to dehydration and prerenal azotemia, will monitor kidney function Underlying history of hypertension Underlying history of hypothyroidism Chronic tobacco use patient smokes up to 2 packs per day At this time patient is admitted to intensive care unit Pulmonary, vascular surgery, and cardiology consultation requested Patient started on IV antibiotics, IV a Remdesevir, IV steroids and inhaled bronchodilators Patient was also started on IV heparin Medication and labs reviewed will follow closely Prognosis is guarded due to severity of illness
[2022-01-07] MEDS: SYMBICORT 160-4.5 MCG INHALER INHALATION SCH (19:23)
[2022-01-07] MEDS: ASCORBIC ACID 500 MG TAB PO SCH (20:05)
[2022-01-07] MEDS: ACETAMINOPHEN TAB 325 MG TAB PO PRN (22:05)
[2022-01-07] MEDS: NOREPINEPHRINE 4 MG in SODIUM CHLORIDE 0.9% 250 ML IV SCH (22:35)
[2022-01-08] MEDS: NOREPINEPHRINE 4 MG in SODIUM CHLORIDE 0.9% 250 ML IV SCH ×4 (02:05→10:51)
[2022-01-08] MEDS: HEPARIN SODIUM 1,000 UN/ML (10ML VL) IV PRN ×2 (03:23→20:38)
[2022-01-08] MEDS: ACETAMINOPHEN TAB 325 MG TAB PO PRN (03:30)
[2022-01-08] MEDS ORDERED: FUROSEMIDE 10 MG/ML 4 ML VIAL IV STA (04:08)
--- NOTE | 2022-01-08 04:28 | XR ---
EXAMINATION TYPE: XR chest 1V portable DATE OF EXAM: 01/08/2022 COMPARISON: 01/07/2022 HISTORY: Short of breath TECHNIQUE: Single view FINDINGS: There is extensive interstitial infiltrate throughout the lungs with coalescent density in the periphery of the right lung. Heart size is normal. The pulmonary vascularity is difficult to eval uate. There are chest leads. There is slight blunting of the costophrenic angles. IMPRESSION: Advanced pulmonary interstitial fibrosis. Acute pneumonia not excluded. RDS is possible. Normal heart size. No significant change.
[2022-01-08] MEDS: SODIUM CHLORIDE 0.9% 1,000 ML IV SCH ×4 (04:31→20:30)
[2022-01-08 07:53] LABS: Calcium 7.3 mg/dL (8.4-10.2); Potassium 5.5 mmol/L (3.5-5.1)
[2022-01-08] MEDS: CHOLECALCIFEROL 25 MCG (1000 IU) TABLET PO SCH (07:56)
[2022-01-08] MEDS: ZINC SULFATE 220 MG CAP PO SCH (07:56)
[2022-01-08] MEDS: ASCORBIC ACID 500 MG TAB PO SCH ×2 (07:56→21:17)
[2022-01-08] MEDS: PANTOPRAZOLE 40 MG/10 ML VIAL IV SCH (07:56)
[2022-01-08] MEDS: DEXAMETHASONE SOD PHOSPHATE 10 MG/ML 1 ML VIAL IVP SCH (07:57)
[2022-01-08] MEDS ORDERED: VANCOMYCIN 1,250 MG in SODIUM CHLORIDE 0.9% 250 ML IVPB ONE (08:00)
[2022-01-08] MEDS ORDERED: NOREPINEPHRIN 4 MG-0.9% NS PMX 4 MG/250 ML ML IV ONE (08:06)
[2022-01-08] MEDS: SYMBICORT 160-4.5 MCG INHALER INHALATION SCH ×2 (08:08→19:19)
[2022-01-08] MEDS: ALBUTEROL HFA INHALER INHALATION SCH ×4 (08:08→19:19)
[2022-01-08] MEDS ORDERED: ENOXAPARIN 30 MG/0.3 ML SYRINGE SQ SCH (09:00)
[2022-01-08 09:20] LABS: Basophils # (A) 0.3 k/uL (0-0.2); Basophils % (A) 1 %; Eosinophils % (A) 0 %; HCT 41.1 % (34.0-46.0); HGB 12.5 gm/dL (11.4-16.0); Hypochromasia Marked; Lymphocytes % (A) 5 %; MCH 28.1 pg (25.0-35.0); MCHC 30.3 g/dL (31.0-37.0); Mean Platelet Volume 9.3; Monocytes # (A) 0.9 k/uL (0-1.0); Monocytes % (A) 5 %; Neutrophils # (A) 17.7 k/uL (1.3-7.7); Neutrophils % (A) 88 %; Platelet Count 398 k/uL (150-450); RBC 4.43 m/uL (3.80-5.40); RDW 14.6 % (11.5-15.5); WBC 20.2 k/uL (3.8-10.6)
[2022-01-08 09:22] LABS: MCV 92.8 fL (80.0-100.0)
--- NOTE | 2022-01-08 10:23 | US ---
EXAMINATION TYPE: US arterial LE multi level DATE OF EXAM: 01/07/2022 1:45 PM CLINICAL HISTORY: cool RLE. Ankle-Brachial Indices: Right: 0.86 Left: 0.83 Toe Brachial Indices: Right: 0.35 Left: 0.48 Some loss of phasicity bilaterally. IMPRESSION: Diminished bilateral TBI values consistent with at least mild bilateral peripheral arter ial disease in the feet. Further workup and follow-up advised.
[2022-01-08] MEDS: DEXTROSE 5% IN WATER 1,000 ML with SODIUM BICARB (1 MEQ/ML) 150 ML IV SCH (10:40)
--- NOTE | 2022-01-08 11:11 | P.PN ---
Subjective Progress Note Date: 01/08/22 Principal diagnosis: Acute hypoxic resource failure secondary to COVID-19 pneumonia This is a 76-year-old female who is not a great historian, her daughter is at bedside, patient is known to have history of hypothyroidism, COPD, history generalized anxiety disorder, patient has been weak for the last few days. According to the daughter, patient fell 4 days ago, and has been complaining of pain to her buttocks. Patient also had some intermittent cough, shortness of breath, and according to the daughter the patient has not been taking her medications including her thyroid medicine and her Combivent for COPD. Patient is a heavy smoker, she smoked 2 packs a day for many years. Does not use oxygen at home. Workup in the ER included a CBC which showed leukocytosis. Elevated d-dimer of 3.94. Abnormal renal profile with a BUN of 76 creatinine of 1.92 and low sodium of 129, elevated BNP level of 2580, normal troponin, and normal liver enzymes. Patient was also noted to have positive PCR for COVID-19, chest x-ray showed multifocal reticular markings and multifocal atypical infiltrates. Possible underlying pulmonary fibrosis. No old x-ray for comparison. Patient was also noted to be relatively hypotensive requiring fluid boluses with slight improvement of the blood pressure. I saw this patient in the ER, and I recommended admitting the patient to the ICU. In the meantime I ordered a high- resolution CT of the chest, started the patient on Remdesivir, patient is on 6 L nasal cannula, recommended fluid boluses, empiric antibiotics, pro-calcitonin level is pending, and order the COVID-19 cocktail. Reevaluated today on 01/08/22, patient remains in the ICU, her condition became a bit worse overnight, patient had to be placed on BiPAP, and she is now on BiPAP FiO2 of 50% IPAP 16 and EPAP of 6 I was able to cut down her FiO2 to 45% and her IPAP 10-14 EPAP remains at 6. Patient is requiring norepinephrine for low blood pressure, hence this is clearly a presentation of septic shock. Patient is requiring norepinephrine at 0.38 mcg/kg/m, her IV fluid went down to KVO after she received 4 L of fluids last night, felt that the patient was over hydrated, and her urine output picked up last night and I was notified about her worsening pulmonary status recommended Lasix dose earlier today with good response to the Lasix. Her creatinine is improving when down from 1.92-1.70 today. Bicarb remains low at 14 on him recommending a bicarb drip. Today I was able to establish a triple-lumen catheter and arterial line and the patient, her pro calcitonin was noted to be high at 5.47, patient was initially placed on vancomycin and Zosyn, blood cultures are negative so far, I'm recommending that we continue Zosyn, discontinue vancomycin, and recommending infectious disease consultation. I'm also recommending a CT of the lumbosacral spine since the patient has significant area of ecchymosis in the buttock area and low back. Apparently she fell 4 days ago. And she had significant amount of pain. The ER physician ordered a thoracic spine CT but did not address the lumbar spine area which seems to be the area of pain and the area of trauma. Patient remains on the COVID-19 cocktail. And I started the patient yesterday on Remdesivir. Since her symptoms were recent within the therapeutic window. WBC count is 20.2 hemoglobin is 12.5. Electrodes are normal except elevated potassium and that will improve with bicarbonate drip. Renal profile as noted earlier. Pro- calcitonin level is very high at 5.47 Objective - Vital Signs Vital signs: Vital Signs Temp 97.0 F L 01/08/22 08:00 Pulse 83 01/08/22 10:30 Resp 16 01/08/22 10:30 BP 100/65 01/08/22 10:30 Pulse Ox 95 01/08/22 10:30 FiO2 45 01/08/22 10:00 Intake & Output 01/07/22 01/08/22 01/08/22 18:59 06:59 18:59 Intake Total 6202.702 5589.473 777.145 Output Total 320 385 125 Balance 617.722 4896.473 652.145 Weight 61.235 kg 68 kg 68 kg Intake: IV 1200 270 KVO 200 20 Sodium Chloride 0.9% 1, 1000 250 000 ml @ 125 mls/hr IV . Q8H [facility] Rx#:[id number] Intake, IV Titration 7585.190 6991.473 507.145 Amount Heparin Sod,Pork in 0.45% 73.602 54.345 NaCl 25,000 unit In 0.45 % NaCl 1 250ml.bag @ 12 UNITS/KG/HR 7.348 mls/hr IV .Q24H [facility] Rx#: [id number] Norepinephrine 4 mg In 8.672 171.791 Sodium Chloride 0.9% 250 ml @ 0.03 MCG/KG/MIN 6. 999 mls/hr IV .Q24H [facility] Rx#:[id number] Norepinephrine 4 mg In 286.080 Sodium Chloride 0.9% 250 ml @ 0.03 MCG/KG/MIN 6. 999 mls/hr IV .Q24H [facility] Rx#:[id number] Norepinephrine 4 mg In 452.800 Sodium Chloride 0.9% 250 ml @ 0.03 MCG/KG/MIN 7. 772 mls/hr IV .Q24H [facility] Rx#:[id number] Sodium Chloride 0.9% 1, 1000 000 ml @ 999 mls/hr IV . Q1H1M [facility] Rx#:[id number] Sodium Chloride 0.9% 1, 1000 000 ml @ 999 mls/hr IV . Q1H1M [facility] Rx#:[id number] Vancomycin 1,250 mg In 125 Sodium Chloride 0.9% 250 ml @ 125 mls/hr IVPB ONCE [facility] Rx#:[id number] Output: Urine 320 385 125 Other: Voiding Method Indwelling Catheter Indwelling Catheter # Bowel Movements 0 ABP, PAP, CO, CI - Last Documented Arterial Blood Pressure 132/49 - Exam Physical Exam: Revealed 76-year-old female in no distress presently on BiPAP Head: Atraumatic, normocephalic. HEENT:[Neck is supple.] [No neck masses.] [No thyromegaly.] [No JVD.] Dry mucous membranes. Chest: [Symmetrical chest expansion crackles at the bases bilaterally. Cardiac Exam: [Normal S1 and S2, no S3 gallop, no murmur.] Abdomen: [Soft, nontender, no megaly, no rebound, no guarding, normal bowel sounds.] Extremities: [No clubbing, no edema, no cyanosis.] Neurological Exam: [No focal neurologic deficit.] Less confused today compared to yesterday Psychiatric: Depressed mood, flat affect, follows simple instructions, less confused than yesterday Skin: Areas of ecchymosis and recent trauma noted to the buttock area and to the lumbosacral spine. Pictures were noted in the chart Musculoskeletal: No deformities and no limitation of range of motion - Labs CBC & Chem 7: 01/08/22 06:47 01/08/22 06:47 Labs: Abnormal Lab Results - Last 24 Hours (Table) 01/07/22 01/07/22 01/07/22 Range/Units 10:31 10:31 10:31 WBC (3.8-10.6) k/uL MCHC (31.0-37.0) g/dL Plt Count (150-450) k/uL Neutrophils # (1.3-7.7) k/uL Neutrophils # (Manual) (1.3-7.7) k/uL Lymphocytes # (Manual) (1.0-4.8) k/uL Basophils # (0-0.2) k/uL PT 12.2 H (9.0-12.0) sec INR 1.2 H (<1.2) APTT (22.0-30.0) sec D-Dimer 3.94 H (<0.60) mg/L FEU Sodium 129 L (137-145) mmol/L Potassium (3.5-5.1) mmol/L Chloride (98-107) mmol/L Carbon Dioxide (22-30) mmol/L BUN 76 H (7-17) mg/dL Creatinine 1.92 H (0.52-1.04) mg/dL Glucose 102 H (74-99) mg/dL Calcium 7.4 L (8.4-10.2) mg/dL AST 37 H (14-36) U/L Total Protein 4.4 L (6.3-8.2) g/dL Albumin 2.1 L (3.5-5.0) g/dL Procalcitonin (0.02-0.09) ng/mL Urine Appearance Cloudy H (Clear) Urine Protein 1+ H (Negative) Urine Blood Trace H (Negative) Urine Bilirubin 1+ H (Negative) Urine Bacteria Rare H (None) /hpf Hyaline Casts 18 H (0-2) /lpf Urine Mucus Occasional H (None) /hpf Coronavirus (PCR) (Not Detectd) 01/07/22 01/07/22 01/07/22 Range/Units 10:31 12:20 13:41 WBC 14.4 H (3.8-10.6) k/uL MCHC (31.0-37.0) g/dL Plt Count 476 H (150-450) k/uL Neutrophils # (1.3-7.7) k/uL Neutrophils # (Manual) 13.20 H (1.3-7.7) k/uL Lymphocytes # (Manual) 0.72 L (1.0-4.8) k/uL Basophils # (0-0.2) k/uL PT (9.0-12.0) sec INR (<1.2) APTT (22.0-30.0) sec D-Dimer (<0.60) mg/L FEU Sodium (137-145) mmol/L Potassium (3.5-5.1) mmol/L Chloride (98-107) mmol/L Carbon Dioxide (22-30) mmol/L BUN (7-17) mg/dL Creatinine (0.52-1.04) mg/dL Glucose (74-99) mg/dL Calcium (8.4-10.2) mg/dL AST (14-36) U/L Total Protein (6.3-8.2) g/dL Albumin (3.5-5.0) g/dL Procalcitonin 5.47 H (0.02-0.09) ng/mL Urine Appearance (Clear) Urine Protein (Negative) Urine Blood (Negative) Urine Bilirubin (Negative) Urine Bacteria (None) /hpf Hyaline Casts (0-2) /lpf Urine Mucus (None) /hpf Coronavirus (PCR) Detected A (Not Detectd) 01/08/22 01/08/22 01/08/22 Range/Units 01:49 06:47 06:47 WBC 20.2 H (3.8-10.6) k/uL MCHC 30.3 L (31.0-37.0) g/dL Plt Count (150-450) k/uL Neutrophils # 17.7 H (1.3-7.7) k/uL Neutrophils # (Manual) (1.3-7.7) k/uL Lymphocytes # (Manual) (1.0-4.8) k/uL Basophils # 0.3 H (0-0.2) k/uL PT (9.0-12.0) sec INR (<1.2) APTT 30.2 H (22.0-30.0) sec D-Dimer (<0.60) mg/L FEU Sodium 135 L (137-145) mmol/L Potassium 5.5 H (3.5-5.1) mmol/L Chloride 109 H (98-107) mmol/L Carbon Dioxide 14 L (22-30) mmol/L BUN 67 H (7-17) mg/dL Creatinine 1.70 H (0.52-1.04) mg/dL Glucose 108 H (74-99) mg/dL Calcium 7.3 L (8.4-10.2) mg/dL AST (14-36) U/L Total Protein (6.3-8.2) g/dL Albumin (3.5-5.0) g/dL Procalcitonin (0.02-0.09) ng/mL Urine Appearance (Clear) Urine Protein (Negative) Urine Blood (Negative) Urine Bilirubin (Negative) Urine Bacteria (None) /hpf Hyaline Casts (0-2) /lpf Urine Mucus (None) /hpf Coronavirus (PCR) (Not Detectd) Assessment and Plan Assessment: Impression: Acute hypoxic respiratory failure secondary to acute COVID-19 pneumonia, underlying bacterial pneumonia is very likely considering her chest x-ray findings and considering elevated pro calcitonin level. Possible interstitial lung disease/pulmonary fibrosis, likely contributing to her acute hypoxic respiratory failure Hypotension, secondary to sepsis/septic shock, and I believe there is significant component of dehydration/hypovolemia, this implies that the patient had septic and hypovolemic shock History of underlying COPD does not seem to be active at this point. But likely contributing to her hypoxic respiratory failure History of hypothyroidism History of generalized anxiety disorder Elevated d-dimer but negative venous Doppler for DVT, cannot perform CT angiogram of the chest mostly because of her renal functioning Acute dehydration Acute kidney injury secondary to dehydration Recommendation: Continue to monitor in the ICU, continue BiPAP, Central line and arterial line were established today. Continue present supportive care measures Continue Zosyn, discontinue vancomycin and consult infectious disease CT of lumbar spine ordered. High-resolution CT of the chest is suggestive of possible interstitial lung disease and underlying COPD. Continue Remdesivir. Continue heparin. COVID-19 cocktail. Bronchodilators and IV Decadron Decrease IV fluid to KVO. Start bicarb drip. Patient is critically ill, critical care time is over 30 minutes not including the time spent on procedures Time with Patient: Greater than 30
--- NOTE | 2022-01-08 11:41 | P.PN ---
Subjective Progress Note Date: 01/08/22 The patient was seen and examined as a follow-up in the ICU. She was started on a heparin drip for atrial fibrillation and on BiPAP. Patient denies any pain in bilateral lower extremities. Objective - Vital Signs Vital signs: Vital Signs Temp 97.5 F L 01/08/22 04:00 Pulse 78 01/08/22 07:00 Resp 24 01/08/22 07:00 BP 82/61 01/08/22 07:00 Pulse Ox 94 L 01/08/22 07:00 FiO2 50 01/08/22 08:06 Intake & Output 01/07/22 01/08/22 01/08/22 18:59 06:59 18:59 Intake Total 4728.092 8602.473 274 Output Total 320 385 40 Balance 821.527 6197.473 234 Weight 61.235 kg 68 kg Intake: IV 1200 20 KVO 200 20 Sodium Chloride 0.9% 1, 1000 000 ml @ 125 mls/hr IV . Q8H [facility] Rx#:[id number] Intake, IV Titration 0089.280 9583.473 254 Amount Heparin Sod,Pork in 0.45% 73.602 NaCl 25,000 unit In 0.45 % NaCl 1 250ml.bag @ 12 UNITS/KG/HR 7.348 mls/hr IV .Q24H [facility] Rx#: [id number] Norepinephrine 4 mg In 8.672 171.791 Sodium Chloride 0.9% 250 ml @ 0.03 MCG/KG/MIN 6. 999 mls/hr IV .Q24H [facility] Rx#:[id number] Norepinephrine 4 mg In 286.080 Sodium Chloride 0.9% 250 ml @ 0.03 MCG/KG/MIN 6. 999 mls/hr IV .Q24H [facility] Rx#:[id number] Norepinephrine 4 mg In 254 Sodium Chloride 0.9% 250 ml @ 0.03 MCG/KG/MIN 7. 772 mls/hr IV .Q24H [facility] Rx#:[id number] Sodium Chloride 0.9% 1, 1000 000 ml @ 999 mls/hr IV . Q1H1M [facility] Rx#:[id number] Sodium Chloride 0.9% 1, 1000 000 ml @ 999 mls/hr IV . Q1H1M [facility] Rx#:[id number] Vancomycin 1,250 mg In 125 Sodium Chloride 0.9% 250 ml @ 125 mls/hr IVPB ONCE [facility] Rx#:[id number] Output: Urine 320 385 40 Other: Voiding Method Indwelling Catheter Indwelling Catheter # Bowel Movements 0 - Exam General appearance: The patient is alert, but lethargic. HET: Head is normocephalic and atraumatic. Neck: Supple. Abdomen: Soft, nontender, nondistended. Extremities: Normal skin color and turgor. bilateral lower extremities pink and warm to touch with good capillary refill with PT and DP Doppler signals present. Neurological: No focal deficit noted. - Labs CBC & Chem 7: 01/08/22 06:47 01/08/22 06:47 Labs: Abnormal Lab Results - Last 24 Hours (Table) 01/07/22 01/07/22 01/07/22 Range/Units 10:31 10:31 10:31 WBC (3.8-10.6) k/uL Plt Count (150-450) k/uL Neutrophils # (Manual) (1.3-7.7) k/uL Lymphocytes # (Manual) (1.0-4.8) k/uL PT 12.2 H (9.0-12.0) sec INR 1.2 H (<1.2) APTT (22.0-30.0) sec D-Dimer 3.94 H (<0.60) mg/L FEU Sodium 129 L (137-145) mmol/L Potassium (3.5-5.1) mmol/L Chloride (98-107) mmol/L Carbon Dioxide (22-30) mmol/L BUN 76 H (7-17) mg/dL Creatinine 1.92 H (0.52-1.04) mg/dL Glucose 102 H (74-99) mg/dL Calcium 7.4 L (8.4-10.2) mg/dL AST 37 H (14-36) U/L Total Protein 4.4 L (6.3-8.2) g/dL Albumin 2.1 L (3.5-5.0) g/dL Procalcitonin (0.02-0.09) ng/mL Urine Appearance Cloudy H (Clear) Urine Protein 1+ H (Negative) Urine Blood Trace H (Negative) Urine Bilirubin 1+ H (Negative) Urine Bacteria Rare H (None) /hpf Hyaline Casts 18 H (0-2) /lpf Urine Mucus Occasional H (None) /hpf Coronavirus (PCR) (Not Detectd) 01/07/22 01/07/22 01/07/22 Range/Units 10:31 12:20 13:41 WBC 14.4 H (3.8-10.6) k/uL Plt Count 476 H (150-450) k/uL Neutrophils # (Manual) 13.20 H (1.3-7.7) k/uL Lymphocytes # (Manual) 0.72 L (1.0-4.8) k/uL PT (9.0-12.0) sec INR (<1.2) APTT (22.0-30.0) sec D-Dimer (<0.60) mg/L FEU Sodium (137-145) mmol/L Potassium (3.5-5.1) mmol/L Chloride (98-107) mmol/L Carbon Dioxide (22-30) mmol/L BUN (7-17) mg/dL Creatinine (0.52-1.04) mg/dL Glucose (74-99) mg/dL Calcium (8.4-10.2) mg/dL AST (14-36) U/L Total Protein (6.3-8.2) g/dL Albumin (3.5-5.0) g/dL Procalcitonin 5.47 H (0.02-0.09) ng/mL Urine Appearance (Clear) Urine Protein (Negative) Urine Blood (Negative) Urine Bilirubin (Negative) Urine Bacteria (None) /hpf Hyaline Casts (0-2) /lpf Urine Mucus (None) /hpf Coronavirus (PCR) Detected A (Not Detectd) 01/08/22 01/08/22 Range/Units 01:49 06:47 WBC (3.8-10.6) k/uL Plt Count (150-450) k/uL Neutrophils # (Manual) (1.3-7.7) k/uL Lymphocytes # (Manual) (1.0-4.8) k/uL PT (9.0-12.0) sec INR (<1.2) APTT 30.2 H (22.0-30.0) sec D-Dimer (<0.60) mg/L FEU Sodium 135 L (137-145) mmol/L Potassium 5.5 H (3.5-5.1) mmol/L Chloride 109 H (98-107) mmol/L Carbon Dioxide 14 L (22-30) mmol/L BUN 67 H (7-17) mg/dL Creatinine 1.70 H (0.52-1.04) mg/dL Glucose 108 H (74-99) mg/dL Calcium 7.3 L (8.4-10.2) mg/dL AST (14-36) U/L Total Protein (6.3-8.2) g/dL Albumin (3.5-5.0) g/dL Procalcitonin (0.02-0.09) ng/mL Urine Appearance (Clear) Urine Protein (Negative) Urine Blood (Negative) Urine Bilirubin (Negative) Urine Bacteria (None) /hpf Hyaline Casts (0-2) /lpf Urine Mucus (None) /hpf Coronavirus (PCR) (Not Detectd) Assessment and Plan Assessment: 1. Right lower extremity cool to touch, IVONNE 0.86 right, 0.83 left patient with mild peripheral arterial disease. 2. COVID-19 infection 3. COPD 4. Current tobacco abuse, 2 pack per day smoker Plan: Patient was seen and evaluated in the ICU. lateral lower extremities pink and warm to the touch. With PT and DP signals. Patient with no pain to lower extremities. ABIs reviewed, patient with possible mild peripheral arterial disease. No surgical intervention recommended at this time. Would recommend outpatient follow-up. Thank you for this consultation, wewe'll sign off at this time. The impression and plan of care has been dictated as directed. Dr. Amaya I performed a history and examination of this patient, discussed the same with the dictator. I agree with the dictator's note ,documented as a scribe. Any additional findings or plans will be noted.t
--- NOTE | 2022-01-08 12:31 | CONS ---
CONSULTATION HISTORY OF PRESENT ILLNESS: Samantha is a 76-year-old lady with history of hypothyroidism and COPD, who smokes 2 packs of cigarettes daily, came into hospital with a history of having had a fall 4 days ago, with cough, shortness of breath, and not feeling well. In the emergency room, her CBC showed that the white cell count is elevated, D-dimer was up, BUN was 76, creatinine is 1.9. Her PCR for COVID-19 had come back positive, and she has chest x-ray evidence of pneumonia. We were consulted because of new onset atrial fibrillation that was noted on the EKG. At the time of my evaluation this morning, the patient is on a non-rebreather, appears comfortable at rest, but is requiring pressors because of hypotension. The patient also received fluid boluses. There is no prior history of coronary artery disease or congestive heart failure. There is no prior history of atrial fibrillation. Heart rate seems to be well controlled. She is somewhat hypotensive. The patient is on IV heparin and I will convert it into Eliquis if it is covered. I will obtain a 2D echo to evaluate her LV function. She had a CT scan of the chest that showed atypical pneumonia, probably related to COVID infection. PAST MEDICAL HISTORY: Significant for hypothyroidism, COPD, and anxiety. CURRENT MEDICATIONS: 1. Synthroid. 2. Combivent inhaler. 3. Celexa. 4. Xanax. 5. Risperdal. ALLERGIES: To Novocaine. FAMILY HISTORY: Negative for premature coronary artery disease. SOCIAL HISTORY: Significant for smoking. There is no history of EtOH abuse or drug abuse. REVIEW OF SYSTEMS: 14 out of 14 review of systems has been performed, pertinence are as documented. PHYSICAL EXAMINATION: VITAL SIGNS: The patient this morning is afebrile, heart rate is 89 beats per minute, blood pressure is 90/62, respiratory rate is 20. NECK: There is no jugular venous distention. CHEST: Reveals bilateral rhonchi. HEART: Reveals first and second heart sounds. No gallop. Has a systolic murmur at the left lower sternal border. ABDOMEN: Soft. EXTREMITIES: Did not reveal any edema. Peripheral pulses are felt. LABORATORY DATA: Labs show that the white cell count is 20, hemoglobin is 12.5, platelet count is 398. BUN is 67, creatinine is 1.7, potassium is 5.5. Echo results are pending at this time. ASSESSMENT: 1. New onset atrial fibrillation. 2. Coronavirus infection with atypical pneumonia. 3. Hypotension. PLAN: The patient will be treated with heparin. Obtain a 2D echo. The patient has evidence of multiorgan failure, probably related to the COVID infection. Her prognosis is guarded. MMODL / IJN: [id number] /
--- NOTE | 2022-01-08 13:42 | CDI ---
Documentation Clarification Form Date: 01/08/2022 01:13:23 PM From: Tatiana Lee RN CCDS Admit Date: 01/07/2022 02:04:00 PM Patient Name: Samantha Brown Visit Number: [id number] Discharge Date: ATTENTION: The Clinical Documentation Specialists (CDI) and [employer] Coding Staff appreciate your assistance in clarifying documentation. Please respond to the clarification below the line at the bottom and electronically sign. The CDI & [employer] Coding staff will review the response and follow-up if needed. Please note: Queries are made part of the Legal Health Record. If you have any questions, please contact the author of this message via ITS. Dr. Gini Herzog deep tissue injury pressure ulcer is documented by nursing, Pressure Injury Assessment Based on this information and the findings below, is there an additional diagnosis that is clinically appropriate for this patient? History/Risk Factors: 76-year-old female presents to the ED with generalized weakness. Medical history: Chronic tobacco use; COPD, Peripheral arterial disease and hypothyroidism. 01/07, H&P. Clinical Indicators: Location: Sacrum and buttocks Wound description: Large reddened, non-blanchable area across buttocks and sacrum 20cm wide by 12 cm long. Linear DTIs running through the red non- blanchable areas. Several blisters present and open. Treatment: Turn every 2 hours; Absorbent under pad; pillow between knees pillow elevating arms. Is there an additional diagnosis that is clinically appropriate for this patient? [ xxx ] Sacrum and buttocks Deep tissue injury [ ] Other condition, please specify [ ] Unable to determine Clinical Definitions: Stage 1 Pressure Ulcer: intact skin, non-blanching redness of local area Stage 2 Pressure Ulcer: Partial thickness, loss of dermis, pink wound bed Stage 3 Pressure Ulcer: Full thickness tissue loss Stage 4 Pressure Ulcer: Full thickness tissue loss with exposed bone, tendon, or muscle. Unstageable pressure ulcer: Full thickness tissue loss in which the base of the ulcer is covered by slough (yellow, beckwith, rodriguez, green or brown) and/or eschar (beckwith, brown or black) in the wound bed. (Template Last Revised: April 2020) [facility]
[2022-01-08] MEDS: NOREPINEPHRINE 8 MG in SODIUM CHLORIDE 0.9% 250 ML IV SCH ×2 (14:13→22:54)
--- NOTE | 2022-01-08 16:11 | P.PN ---
Subjective Progress Note Date: 01/08/22 Samantha Brown, is a 76-year-old female who presented to [facility] emergency room with a chief complaint of generalized weakness, patient's daughter reported in the emergency room that her mother had a fall 4 days prior to presentation She was evaluated in the emergency room vital examination on presentation revealed Laboratory data revealed a white blood count of 14.4 hemoglobin 12.2 platelet count 476 INR 1.2 d-dimer 3.94 sodium 129 potassium 5.1 chloride 99 CO2 23 BUN 76 creatinine 1.92 lactic acid 1.7 Corps on a virus PCR was positive Testing in the emergency room revealed chest x-ray done in emergency room revealed small bilateral pleural effusions and multifocal areas of increased reticular markings, EKG revealed atrial fibrillation with a heart rate of 86 Patient was admitted to medical floor for further evaluation and treatment. Past medical history is significant for history of hypertension, history of hyperlipidemia, history of hypothyroidism, and history of tobacco use patient smokes 2 packs per day On 01/08/2022 patient was seen and examined in the ICU she is alert responsive in mild distress due to shortness of breath, she was started on BiPAP during the night, she is maintained on norepinephrine for pressure support, she is also maintained on IV antibiotic Zosyn, input from cardiology and pulmonary review, patient's daughter Pily contacted over the phone and all questions answered to her satisfaction. Objective - Vital Signs Vital signs: Vital Signs Temp 97.5 F L 01/08/22 04:00 Pulse 78 01/08/22 07:00 Resp 24 01/08/22 07:00 BP 82/61 01/08/22 07:00 Pulse Ox 94 L 01/08/22 07:00 FiO2 50 01/08/22 05:38 Intake & Output 01/07/22 01/08/22 01/08/22 18:59 06:59 18:59 Intake Total 3703.436 1618.473 20 Output Total 320 385 40 Balance 704.409 7546.473 -20 Weight 61.235 kg 68 kg Intake: IV 1200 20 KVO 200 20 Sodium Chloride 0.9% 1, 1000 000 ml @ 125 mls/hr IV . Q8H [facility] Rx#:[id number] Intake, IV Titration 7870.407 8488.473 Amount Heparin Sod,Pork in 0.45% 73.602 NaCl 25,000 unit In 0.45 % NaCl 1 250ml.bag @ 12 UNITS/KG/HR 7.348 mls/hr IV .Q24H [facility] Rx#: [id number] Norepinephrine 4 mg In 8.672 171.791 Sodium Chloride 0.9% 250 ml @ 0.03 MCG/KG/MIN 6. 999 mls/hr IV .Q24H [facility] Rx#:[id number] Norepinephrine 4 mg In 286.080 Sodium Chloride 0.9% 250 ml @ 0.03 MCG/KG/MIN 6. 999 mls/hr IV .Q24H [facility] Rx#:[id number] Sodium Chloride 0.9% 1, 1000 000 ml @ 999 mls/hr IV . Q1H1M [facility] Rx#:[id number] Sodium Chloride 0.9% 1, 1000 000 ml @ 999 mls/hr IV . Q1H1M [facility] Rx#:[id number] Vancomycin 1,250 mg In 125 Sodium Chloride 0.9% 250 ml @ 125 mls/hr IVPB ONCE ONE Rx#:[id number] Output: Urine 320 385 40 Other: Voiding Method Indwelling Catheter Indwelling Catheter # Bowel Movements 0 - Exam In general patient is alert responsive maintained on BiPAP HEENT head normocephalic and atraumatic Neck is supple no JVD no goiter no lymphadenopathy no carotid bruit Chest examination reveals a scattered crackles bilaterally with mild wheezing Cardiac exam reveals regular heart sounds S1 and S2 no gallops no murmurs Abdomen is soft nontender no organomegaly with normal bowel sounds Extremity exam reveals no edema no cyanosis or clubbing, poor pulses peripherally Neurological examination reveals no gross focal deficits - Labs CBC & Chem 7: 01/08/22 06:47 01/08/22 06:47 Labs: Abnormal Lab Results - Last 24 Hours (Table) 01/07/22 01/07/22 01/07/22 Range/Units 10:31 10:31 10:31 WBC (3.8-10.6) k/uL Plt Count (150-450) k/uL Neutrophils # (Manual) (1.3-7.7) k/uL Lymphocytes # (Manual) (1.0-4.8) k/uL PT 12.2 H (9.0-12.0) sec INR 1.2 H (<1.2) APTT (22.0-30.0) sec D-Dimer 3.94 H (<0.60) mg/L FEU Sodium 129 L (137-145) mmol/L BUN 76 H (7-17) mg/dL Creatinine 1.92 H (0.52-1.04) mg/dL Glucose 102 H (74-99) mg/dL Calcium 7.4 L (8.4-10.2) mg/dL AST 37 H (14-36) U/L Total Protein 4.4 L (6.3-8.2) g/dL Albumin 2.1 L (3.5-5.0) g/dL Procalcitonin (0.02-0.09) ng/mL Urine Appearance Cloudy H (Clear) Urine Protein 1+ H (Negative) Urine Blood Trace H (Negative) Urine Bilirubin 1+ H (Negative) Urine Bacteria Rare H (None) /hpf Hyaline Casts 18 H (0-2) /lpf Urine Mucus Occasional H (None) /hpf Coronavirus (PCR) (Not Detectd) 01/07/22 01/07/22 01/07/22 Range/Units 10:31 12:20 13:41 WBC 14.4 H (3.8-10.6) k/uL Plt Count 476 H (150-450) k/uL Neutrophils # (Manual) 13.20 H (1.3-7.7) k/uL Lymphocytes # (Manual) 0.72 L (1.0-4.8) k/uL PT (9.0-12.0) sec INR (<1.2) APTT (22.0-30.0) sec D-Dimer (<0.60) mg/L FEU Sodium (137-145) mmol/L BUN (7-17) mg/dL Creatinine (0.52-1.04) mg/dL Glucose (74-99) mg/dL Calcium (8.4-10.2) mg/dL AST (14-36) U/L Total Protein (6.3-8.2) g/dL Albumin (3.5-5.0) g/dL Procalcitonin 5.47 H (0.02-0.09) ng/mL Urine Appearance (Clear) Urine Protein (Negative) Urine Blood (Negative) Urine Bilirubin (Negative) Urine Bacteria (None) /hpf Hyaline Casts (0-2) /lpf Urine Mucus (None) /hpf Coronavirus (PCR) Detected A (Not Detectd) 01/08/22 Range/Units 01:49 WBC (3.8-10.6) k/uL Plt Count (150-450) k/uL Neutrophils # (Manual) (1.3-7.7) k/uL Lymphocytes # (Manual) (1.0-4.8) k/uL PT (9.0-12.0) sec INR (<1.2) APTT 30.2 H (22.0-30.0) sec D-Dimer (<0.60) mg/L FEU Sodium (137-145) mmol/L BUN (7-17) mg/dL Creatinine (0.52-1.04) mg/dL Glucose (74-99) mg/dL Calcium (8.4-10.2) mg/dL AST (14-36) U/L Total Protein (6.3-8.2) g/dL Albumin (3.5-5.0) g/dL Procalcitonin (0.02-0.09) ng/mL Urine Appearance (Clear) Urine Protein (Negative) Urine Blood (Negative) Urine Bilirubin (Negative) Urine Bacteria (None) /hpf Hyaline Casts (0-2) /lpf Urine Mucus (None) /hpf Coronavirus (PCR) (Not Detectd) Assessment and Plan Plan: Acute hypoxic respiratory failure Acute coronary 19 pneumonia Underlying history of chronic obstructive pulmonary disease Sepsis as evidenced by leukocytosis, tachycardia, mild elevation in lactic acid and hypotension Elevated d-dimer Acute kidney injury possibly related to dehydration and prerenal azotemia, will monitor kidney function Underlying history of hypertension Underlying history of hypothyroidism Chronic tobacco use patient smokes up to 2 packs per day At this time patient is admitted to intensive care unit Pulmonary, vascular surgery, and cardiology consultation requested Patient started on IV antibiotics, IV a Remdesevir, IV steroids and inhaled br onchodilators Patient was also started on IV heparin Medication and labs reviewed will follow closely Prognosis is guarded due to severity of illness
--- NOTE | 2022-01-08 16:13 | CT ---
EXAMINATION TYPE: CT lumbar spine wo con DATE OF EXAM: 01/08/2022 4:06 PM COMPARISON: None. HISTORY: back pain following fall CT DLP: 993.7 mGycm Automated exposure control for dose reduction was used. Unenhanced CT of the lumbar spine was performed. Bone and soft tissue window settings are submitted as well as coronal and sagittal reconstructions. There are 5 lumbar-type vertebra. There is dextroconvex scoliosis centered at L2-L3 level. No acute f racture or dislocation. Moderate to severe disc space narrowing L1-L2 through the L3-L4 levels along with the L5-S1 level. Moderate disc space narrowing with vacuum disc phenomenon L4-L5 level. Moderate multilevel anterior and lateral spurring. Slight grade 1 retrolisthesis L3 on L4. Posterior spur dis c complexes efface the anterior thecal sac at L2-L3 and L3-L4 levels. Broad disc bulge effaces the an terior thecal sac L4-L5 level with mild/moderate facet arthropathy and ligamentum flavum hypertrophy effacing the posterior lateral thecal sac on axial image 62. There is intraluminal gallstone in gallbladder with surrounding fluid. Gallbladder has distended ludmila ins There is a 1.5 cm rim calcified gallstone near the gallbladder neck calculus measures 35. Acute c holecystitis cannot be excluded in appropriate clinical setting. Correlate clinically. Small to tiny right greater left pleural effusions and associated posterior atelectasis and/or consol idation. Underlying emphysematous changes suspected. IMPRESSION: No acute displaced fracture in the lumbar spine. Abnormal appearance of the gallbladder. Correlate clinically. A Yellow level critical message alert has been initiated for Gini Wayne MD via the [employer] Critical Results System on 01/08/2022 4:11 PM. This message alert has been sent to Gini Wayne MD via the preferences provided by the clinician for the receipt of Radiology Critical Findings. [facility] RX e ID [id number].
[2022-01-08] MEDS: PIPERACILLIN-TAZOBACTAM 3.375 GM in SODIUM CHLORIDE 0.9% 100 ML IVPB SCH (16:48)
--- NOTE | 2022-01-08 17:21 | OP ---
OPERATIVE REPORT PROCEDURE PERFORMED: Placement of the right femoral triple-lumen catheter. PREOPERATIVE DIAGNOSES: Acute hypoxic respiratory failure, COVID-19 pneumonia, sepsis, and hypotension. POSTOPERATIVE DIAGNOSES: Acute hypoxic respiratory failure, COVID-19 pneumonia, sepsis, and hypotension. ANESTHESIA USED: 2 mL of 1% lidocaine. DESCRIPTION OF PROCEDURE: The patient was placed in the supine position, the area of the right groin was prepared in a sterile fashion and drapes were applied. The area was locally anesthetized with lidocaine. Then, the right femoral vein was easily cannulated, a guidewire was placed, and a triple-lumen catheter was inserted over the guidewire, and the guidewire was removed. Good blood flow was noted in the 3 different ports of the triple-lumen catheter. No complications. Line was secured using 3.0 silk sutures. MMODL / IJN: [id number] /
[2022-01-08] MEDS: REMDESIVIR 100 MG in SODIUM CHLORIDE 0.9% 250 ML IVPB SCH (17:26)
--- NOTE | 2022-01-08 17:30 | OP ---
OPERATIVE REPORT PROCEDURE PERFORMED: Placement of a right femoral triple-lumen catheter. PREOPERATIVE DIAGNOSES: Acute hypoxic respiratory failure, COVID pneumonia, sepsis/septic shock. POSTOPERATIVE DIAGNOSES: Acute hypoxic respiratory failure, COVID pneumonia, sepsis/septic shock. ANESTHESIA USED: None deployed. DESCRIPTION OF PROCEDURE: The area of the right groin was prepared in a sterile fashion and drapes were applied. The right femoral artery was palpated, cannulated easily, and a guidewire was placed. The area around the guidewire was dilated using a dilator. Then, a Cook catheter was inserted over the guidewire, and the guidewire was removed. Good blood flow, good waveform. No complications. Line was secured using 3.0 silk sutures. MMODL / IJN: [id number] /
--- NOTE | 2022-01-08 18:55 | US ---
EXAMINATION TYPE: US gallbladder DATE OF EXAM: 01/08/2022 COMPARISON: CT: Today CLINICAL HISTORY: Abnormal appearance on computed tomography scan. abnormal gb on CT of spine TECHNIQUE: Multiple sonographic images of the right upper quadrant are obtained. FINDINGS: EXAM MEASUREMENTS: Liver Length: 15.1 cm Gallbladder Wall: 0.37 cm CBD: 0.23 cm Right Kidney: 11.3 x 4.3 x 4.7 cm BOARD CERTIFIED ARTS THERAPIST NOTES: Exam done on ICU patient who could not hold breath or roll to side Pancreas: Limited due to bowel gas Liver: appears wnl Gallbladder: Large gallstone in the neck of the GB measuring 1.5cm. Pericholecystic fluid noted Evidence for sonographic Hogan's sign: No CBD: wnl Right Kidney: wnl IMPRESSION: Cholelithiasis without evidence for acute cholecystitis.
[2022-01-08] MEDS: IPRATROPIUM-ALBUTEROL 3 ML NEB INHALATION SCH (20:21)
[2022-01-08] MEDS: HEPARIN SOD,PORK IN 0.45% NACL 25,000 UNIT in 0.45% NACL 1 250ML.BAG IV SCH (20:39)
[2022-01-08] MEDS: risperiDONE 2 MG TAB PO SCH (21:17)
--- NOTE | 2022-01-08 22:35 | P.CONS ---
History of Present Illness - Reason for Consult Consult date: 01/08/22 SacralWound Requesting physician: Griselda Gonzales - Chief Complaint Increasing shortness of breath x few days - History of Present Illness Patient is a 76-year-old female with a past medical history of pain for COPD hypothyroidism current 2 pack smoker a day, presenting to the ER with chief complaints of weakness for the past few days. The patient did have a fall 4 days ago with the patient landed on her gluteal area and has developed some deep tissue injury to the sacral/gluteal area, patient on presentation to the hospital was afebrile and no fever has been recorded subsequently patient was hypoxic with sats of 87% on room air patient has been placed on BiPAP and admitted to ICU did have elevated white count with a left shift elevated D-dimer did have elevated BUN and creatinine as well as elevated lactic acid also tested positive for COVID-19 patient did have a chest x-ray small to tiny bilateral pleural effusion with multifocal areas of increased reticular markings could reflect multifocal pneumonia CT of the chest scattered bilateral consolidation patient has been admitted to ICU evaluated by multiple consultants infectious disease was consulted today for the sacral wound most information has been obtained from review the chart talking to nursing staff as the patient was unable [place] history no vomiting or diarrhea has been reported by the nursing staff patient is currently on Zosyn did receive vancomycin which has been discontinued also on heparin per weight-based protocol and dexamethasone Review of Systems Positive points has been mentioned in HPI complete review could not be obtained because of his underlying mental status Past Medical History Past Medical History: COPD Additional Past Medical History / Comment(s): Lupus History of Any Multi-Drug Resistant Organisms: None Reported Past Surgical History: Unable to Obtain Additional Past Surgical History / Comment(s): Polyp removed from throat Past Anesthesia/Blood Transfusion Reactions: No Reported Reaction Smoking Status: Current every day smoker Medications and Allergies Home Medications Medication Instructions Recorded Confirmed Type ALPRAZolam [Xanax] 0.25 mg PO BID PRN 01/07/22 01/07/22 History Citalopram Hydrobromide [CeleXA] 30 mg PO DAILY 01/07/22 01/08/22 History Ipratropium/Albuter 20-100Mcg 1 puff INHALATION RT-QID 01/07/22 01/07/22 History [Combivent Respimat 20-100Mcg Inhaler] Levothyroxine Sodium 150 mcg PO Q48H 01/07/22 01/08/22 History Levothyroxine Sodium [Synthroid] 175 mcg PO Q48H 01/07/22 01/08/22 History risperiDONE [RisperDAL] 2 mg PO HS 01/07/22 01/08/22 History Apixaban [Eliquis] 5 mg PO BID #60 tab 01/08/22 Rx Allergies Allergy/AdvReac Type Severity Reaction Status Date / Time procaine [From Novocain] Allergy Dyspnea & Verified 01/07/22 11:59 Hallucinations Physical Exam Vitals: Vital Signs Temp Pulse Pulse Resp BP Pulse Ox FiO2 01/08/22 10:30 83 16 100/65 95 01/08/22 10:00 78 16 96/66 96 45 01/08/22 09:30 68 20 111/44 95 01/08/22 09:07 45 01/08/22 09:00 89 21 89/53 97 01/08/22 08:30 66 23 90/62 95 01/08/22 08:06 50 01/08/22 08:00 97.0 F L 81 20 101/90 95 50 01/08/22 07:30 67 21 110/47 93 L 01/08/22 07:00 78 24 82/61 94 L 01/08/22 06:30 73 18 80/69 94 L 01/08/22 06:00 81 15 85/60 94 L 01/08/22 05:38 74 13 94 L 50 01/08/22 05:30 83 16 111/59 94 L 01/08/22 05:00 90 11 L 99/54 93 L 01/08/22 04:30 80 7 L 107/46 94 L 01/08/22 04:27 50 01/08/22 04:12 50 01/08/22 04:00 97.5 F L 82 8 L 99/62 91 L 01/08/22 03:52 91 L 01/08/22 03:30 87 10 L 81/41 94 L 01/08/22 03:00 76 6 L 107/70 94 L 01/08/22 02:30 75 11 L 97/48 97 01/08/22 02:00 70 16 105/53 97 01/08/22 01:30 76 11 L 106/52 96 01/08/22 01:00 93 10 L 90/46 95 01/08/22 00:30 76 9 L 92/53 93 L 01/08/22 00:16 92 L 01/08/22 00:00 98.0 F 82 9 L 97/51 93 L 01/07/22 23:30 88 14 96/47 93 L 01/07/22 23:00 91 11 L 94/46 93 L 01/07/22 22:30 76 20 96/52 92 L 01/07/22 22:00 80 27 H 80/51 95 01/07/22 21:30 81 24 87/47 96 01/07/22 21:00 70 25 H 81/43 97 01/07/22 20:30 14 107/60 91 L 01/07/22 20:00 96.7 F L 80 12 89/61 90 L 01/07/22 19:30 70 7 L 109/70 92 L 01/07/22 19:05 82 12 80/51 92 L 01/07/22 19:00 84 19 109/86 92 L 01/07/22 18:30 80 17 91/49 94 L 01/07/22 18:00 84 16 74/40 97 01/07/22 17:30 82 16 73/38 96 01/07/22 17:20 84 8 L 73/38 96 01/07/22 17:00 81 17 97/75 97 01/07/22 16:40 87 21 86/58 95 01/07/22 16:30 78 26 H 89/45 93 L 01/07/22 16:20 84 24 89/45 90 L 01/07/22 16:10 82 8 L 89/45 92 L 01/07/22 15:49 97.6 F 76 16 85/54 92 L 01/07/22 15:10 97.5 F L 82 16 92/58 91 L 01/07/22 14:17 96.7 F L 89 16 102/72 91 L 01/07/22 14:00 84 16 90/62 91 L 01/07/22 13:52 81 16 91/59 90 L 01/07/22 13:00 86 16 92/57 90 L Intake and Output 01/07/22 01/08/22 01/08/22 22:59 06:59 14:59 Intake Total 2726.296 1138.849 777.145 Output Total 500 205 125 Balance 2226.296 933.849 652.145 Intake: IV 415 785 270 KVO 40 160 20 Sodium Chloride 0.9% 1, 375 625 250 000 ml @ 125 mls/hr IV . Q8H [facility] Rx#:[id number] Intake, IV Titration 2311.296 353.849 507.145 Amount Heparin Sod,Pork in 0.45% 73.602 54.345 NaCl 25,000 unit In 0.45 % NaCl 1 250ml.bag @ 12 UNITS/KG/HR 7.348 mls/hr IV .Q24H [facility] Rx#: [id number] Norepinephrine 4 mg In 180.463 Sodium Chloride 0.9% 250 ml @ 0.03 MCG/KG/MIN 6. 999 mls/hr IV .Q24H [facility] Rx#:[id number] Norepinephrine 4 mg In 5.833 280.247 Sodium Chloride 0.9% 250 ml @ 0.03 MCG/KG/MIN 6. 999 mls/hr IV .Q24H [facility] Rx#:[id number] Norepinephrine 4 mg In 452.800 Sodium Chloride 0.9% 250 ml @ 0.03 MCG/KG/MIN 7. 772 mls/hr IV .Q24H [facility] Rx#:[id number] Sodium Chloride 0.9% 1, 1000 000 ml @ 999 mls/hr IV . Q1H1M [facility] Rx#:[id number] Sodium Chloride 0.9% 1, 1000 000 ml @ 999 mls/hr IV . Q1H1M [facility] Rx#:[id number] Vancomycin 1,250 mg In 125 Sodium Chloride 0.9% 250 ml @ 125 mls/hr IVPB ONCE [facility] Rx#:[id number] Output: Urine 500 205 125 Other: Voiding Method Indwelling Catheter Indwelling Catheter # Bowel Movements 0 0 Weight 68 kg 68 kg ABP, PAP, CO, CI - Last 8 Hours Arterial Blood Pressure 132/49 GENERAL DESCRIPTION: Elderly female lying in bed, mild distress. On a BiPAP HEENT: Shows Pallor , no scleral icterus. NECK: Trachea central, no thyromegaly. LUNGS: Unlabored breathing. Coarse breath sounds Bilaterally. HEART: S1, S2, regular rate and rhythm. No loud murmur ABDOMEN: Soft, no tenderness , guarding or rigidity, no organomegaly EXTREMITIES: No edema of feet. SKIN: No rash, no masses palpable. Deep tissue injury to the sacral area. No redness or drainage NEUROLOGICAL: The patient is lethargic and orientation could not be determined Results CBC & Chem 7: 01/26/22 06:08 01/26/22 06:08 Labs: Abnormal Lab Results - Last 24 Hours (Table) 01/07/22 01/07/22 01/07/22 Range/Units 10:31 10:31 10:31 WBC (3.8-10.6) k/uL MCHC (31.0-37.0) g/dL Plt Count (150-450) k/uL Neutrophils # (1.3-7.7) k/uL Neutrophils # (Manual) (1.3-7.7) k/uL Lymphocytes # (Manual) (1.0-4.8) k/uL Basophils # (0-0.2) k/uL PT 12.2 H (9.0-12.0) sec INR 1.2 H (<1.2) APTT (22.0-30.0) sec D-Dimer 3.94 H (<0.60) mg/L FEU Sodium 129 L (137-145) mmol/L Potassium (3.5-5.1) mmol/L Chloride (98-107) mmol/L Carbon Dioxide (22-30) mmol/L BUN 76 H (7-17) mg/dL Creatinine 1.92 H (0.52-1.04) mg/dL Glucose 102 H (74-99) mg/dL Calcium 7.4 L (8.4-10.2) mg/dL AST 37 H (14-36) U/L Total Protein 4.4 L (6.3-8.2) g/dL Albumin 2.1 L (3.5-5.0) g/dL Procalcitonin (0.02-0.09) ng/mL Urine Appearance Cloudy H (Clear) Urine Protein 1+ H (Negative) Urine Blood Trace H (Negative) Urine Bilirubin 1+ H (Negative) Urine Bacteria Rare H (None) /hpf Hyaline Casts 18 H (0-2) /lpf Urine Mucus Occasional H (None) /hpf Coronavirus (PCR) (Not Detectd) 01/07/22 01/07/22 01/07/22 Range/Units 10:31 12:20 13:41 WBC 14.4 H (3.8-10.6) k/uL MCHC (31.0-37.0) g/dL Plt Count 476 H (150-450) k/uL Neutrophils # (1.3-7.7) k/uL Neutrophils # (Manual) 13.20 H (1.3-7.7) k/uL Lymphocytes # (Manual) 0.72 L (1.0-4.8) k/uL Basophils # (0-0.2) k/uL PT (9.0-12.0) sec INR (<1.2) APTT (22.0-30.0) sec D-Dimer (<0.60) mg/L FEU Sodium (137-145) mmol/L Potassium (3.5-5.1) mmol/L Chloride (98-107) mmol/L Carbon Dioxide (22-30) mmol/L BUN (7-17) mg/dL Creatinine (0.52-1.04) mg/dL Glucose (74-99) mg/dL Calcium (8.4-10.2) mg/dL AST (14-36) U/L Total Protein (6.3-8.2) g/dL Albumin (3.5-5.0) g/dL Procalcitonin 5.47 H (0.02-0.09) ng/mL Urine Appearance (Clear) Urine Protein (Negative) Urine Blood (Negative) Urine Bilirubin (Negative) Urine Bacteria (None) /hpf Hyaline Casts (0-2) /lpf Urine Mucus (None) /hpf Coronavirus (PCR) Detected A (Not Detectd) 01/08/22 01/08/22 01/08/22 Range/Units 01:49 06:47 06:47 WBC 20.2 H (3.8-10.6) k/uL MCHC 30.3 L (31.0-37.0) g/dL Plt Count (150-450) k/uL Neutrophils # 17.7 H (1.3-7.7) k/uL Neutrophils # (Manual) (1.3-7.7) k/uL Lymphocytes # (Manual) (1.0-4.8) k/uL Basophils # 0.3 H (0-0.2) k/uL PT (9.0-12.0) sec INR (<1.2) APTT 30.2 H (22.0-30.0) sec D-Dimer (<0.60) mg/L FEU Sodium 135 L (137-145) mmol/L Potassium 5.5 H (3.5-5.1) mmol/L Chloride 109 H (98-107) mmol/L Carbon Dioxide 14 L (22-30) mmol/L BUN 67 H (7-17) mg/dL Creatinine 1.70 H (0.52-1.04) mg/dL Glucose 108 H (74-99) mg/dL Calcium 7.3 L (8.4-10.2) mg/dL AST (14-36) U/L Total Protein (6.3-8.2) g/dL Albumin (3.5-5.0) g/dL Procalcitonin (0.02-0.09) ng/mL Urine Appearance (Clear) Urine Protein (Negative) Urine Blood (Negative) Urine Bilirubin (Negative) Urine Bacteria (None) /hpf Hyaline Casts (0-2) /lpf Urine Mucus (None) /hpf Coronavirus (PCR) (Not Detectd) Assessment and Plan (1) COVID-19 Current Visit: Yes Status: Acute Code(s): U07.1 - COVID-19 SNOMED Code(s): 279188511 (2) Pressure ulcer of sacral region, stage 2 Current Visit: Yes Status: Acute Code(s): L89.152 - PRESSURE ULCER OF SACRAL REGION, STAGE 2 SNOMED Code(s): 90376133781180 Plan: 1patient with a deep tissue injury to the sacral area mostly bruising did not have significant open area or surrounding redness recommend local wound care by keeping the area dry and of the pressure and skin protective cream. 2patient with acute respiratory failure which is multifactorial concerning for possible pneumonia in this patient also tested positive for COVID however did have elevated procalcitonin superadded bacterial pneumonia not entirely excluded. 3try to obtain a sputum for gram stain and culture. 4continue with the Zosyn Heparin dexamethasone zinc and ascorbic acid. 5droplet isolation and respiratory support. We will follow on clinical condition and cultures to further adjust medication if needed Thank you for this consultation will follow this patient along with you Time with Patient: Greater than 30
[2022-01-09] MEDS: PIPERACILLIN-TAZOBACTAM 3.375 GM in SODIUM CHLORIDE 0.9% 100 ML IVPB SCH ×4 (00:46→23:44)
[2022-01-09] MEDS: SODIUM CHLORIDE 0.9% 1,000 ML IV SCH ×2 (04:00→06:31)
[2022-01-09 06:22] LABS: Basophils # (A) 0.1 k/uL (0-0.2); Basophils % (A) 0 %; Eosinophils % (A) 0 %; HGB 10.6 gm/dL (11.4-16.0); Hypochromasia Moderate; Lymphocytes # (A) 0.5 k/uL (1.0-4.8); Lymphocytes % (A) 4 %; MCH 27.1 pg (25.0-35.0); MCHC 31.2 g/dL (31.0-37.0); Mean Platelet Volume 8.3; Monocytes # (A) 0.9 k/uL (0-1.0); Monocytes % (A) 6 %; Neutrophils # (A) 13.2 k/uL (1.3-7.7); Neutrophils % (A) 89 %; Platelet Count 489 k/uL (150-450); RBC 3.91 m/uL (3.80-5.40); WBC 14.8 k/uL (3.8-10.6)
[2022-01-09 06:24] LABS: Calcium 7.1 mg/dL (8.4-10.2); Potassium 4.6 mmol/L (3.5-5.1); Total Bilirubin 0.6 mg/dL (0.2-1.3); Total Protein 4.2 g/dL (6.3-8.2)
[2022-01-09 06:42] LABS: MCV 86.9 fL (80.0-100.0)
[2022-01-09] MEDS: LEVOTHYROXINE 88 MCG TAB PO SCH (06:44)
--- NOTE | 2022-01-09 07:20 | XR ---
EXAMINATION TYPE: XR chest 1V portable DATE OF EXAM: 01/09/2022 CLINICAL HISTORY: Difficulty breathing progress study. TECHNIQUE: Single AP portable upright view of the chest is obtained. COMPARISON: Chest x-ray from one day earlier and older studies FINDINGS: Reticular increased markings bilaterally redemonstrated. Small bilateral pleural effusions slightly more prominent. No pneumothorax seen bilaterally. The cardiac silhouette size is stable and within normal limits. The osseous structures are intact. IMPRESSION: Small bilateral pleural effusions more prominent from prior. Suspect bilateral multifocal infiltrates and/or edema on background chronic parenchymal changes. Correlate clinically and with mo re remote studies would be beneficial.
[2022-01-09] MEDS: PANTOPRAZOLE 40 MG/10 ML VIAL IV SCH (07:57)
[2022-01-09] MEDS: ZINC SULFATE 220 MG CAP PO SCH (07:57)
[2022-01-09] MEDS: CHOLECALCIFEROL 25 MCG (1000 IU) TABLET PO SCH (07:57)
[2022-01-09] MEDS: ASCORBIC ACID 500 MG TAB PO SCH ×2 (07:57→20:12)
[2022-01-09] MEDS: CITALOPRAM HYDROBROMIDE 10 MG TAB PO SCH (08:01)
[2022-01-09] MEDS: DEXAMETHASONE SOD PHOSPHATE 10 MG/ML 1 ML VIAL IVP SCH (08:02)
[2022-01-09] MEDS: SYMBICORT 160-4.5 MCG INHALER INHALATION SCH ×2 (08:43→20:10)
[2022-01-09] MEDS: ALBUTEROL HFA INHALER INHALATION SCH ×4 (08:43→20:10)
[2022-01-09] MEDS: TIOTROPIUM 2.5 MCG INHALER INHALATION SCH (08:49)
[2022-01-09] MEDS ORDERED: FUROSEMIDE 10 MG/ML 4 ML VIAL IV STA (09:12)
--- NOTE | 2022-01-09 09:33 | P.PN ---
Subjective Progress Note Date: 01/09/22 Samantha Brown, is a 76-year-old female who presented to [facility] emergency room with a chief complaint of generalized weakness, patient's daughter reported in the emergency room that her mother had a fall 4 days prior to presentation She was evaluated in the emergency room vital examination on presentation revealed Laboratory data revealed a white blood count of 14.4 hemoglobin 12.2 platelet count 476 INR 1.2 d-dimer 3.94 sodium 129 potassium 5.1 chloride 99 CO2 23 BUN 76 creatinine 1.92 lactic acid 1.7 Corps on a virus PCR was positive Testing in the emergency room revealed chest x-ray done in emergency room revealed small bilateral pleural effusions and multifocal areas of increased reticular markings, EKG revealed atrial fibrillation with a heart rate of 86 Patient was admitted to medical floor for further evaluation and treatment. Past medical history is significant for history of hypertension, history of hyperlipidemia, history of hypothyroidism, and history of tobacco use patient smokes 2 packs per day On 01/08/2022 patient was seen and examined in the ICU she is alert responsive in mild distress due to shortness of breath, she was started on BiPAP during the night, she is maintained on norepinephrine for pressure support, she is also maintained on IV antibiotic Zosyn, input from cardiology and pulmonary review, patient's daughter Pily contacted over the phone and all questions answered to her satisfaction. On 01/09/2022 patient remains in the intensive care unit slightly improved. Patient remains on BiPAP. Creatinine improving to 1.41 bun 63. Patient remains on IV heparin. Patient also remains on sodium bicarb current vital signs heart rate 88, respiratory rate 19, blood pressure 108/51 patient satting 93% on BiPAP 40% FiO2. Objective - Vital Signs Vital signs: Vital Signs Temp 98 F 01/09/22 04:00 Pulse 88 01/09/22 09:00 Resp 19 01/09/22 09:00 BP 98/58 01/09/22 04:00 Pulse Ox 93 L 01/09/22 09:00 FiO2 40 01/09/22 09:00 Intake & Output 01/08/22 01/09/22 01/09/22 18:59 06:59 18:59 Intake Total 1332.055 969.182 338.384 Output Total 550 780 145 Balance 782.055 189.182 193.384 Weight 68 kg 68.7 kg Intake: IV 215 696 189 0.9NS Pressure Bag 15 36 9 Dextrose 5% in Water 1, 550 150 000 ml @ 50 mls/hr IV . Q23H [facility] with Sodium Bicarb (1 Meq/ml) 150 ml Rx#:[id number] KVO 20 110 30 Sodium Chloride 0.9% 1, 180 0 000 ml @ 125 mls/hr IV . Q8H [facility] Rx#:[id number] Intake, IV Titration 1117.055 273.182 149.384 Amount Dextrose 5% in Water 1, 400 000 ml @ 50 mls/hr IV . Q23H [facility] with Sodium Bicarb (1 Meq/ml) 150 ml Rx#:[id number] Heparin Sod,Pork in 0.45% 88.330 156.514 NaCl 25,000 unit In 0.45 % NaCl 1 250ml.bag @ 12 UNITS/KG/HR 7.348 mls/hr IV .Q24H [facility] Rx#: [id number] Norepinephrine 4 mg In 452.800 Sodium Chloride 0.9% 250 ml @ 0.03 MCG/KG/MIN 7. 772 mls/hr IV .Q24H [facility] Rx#:[id number] Norepinephrine 8 mg In 125.925 91.668 149.384 Sodium Chloride 0.9% 250 ml @ 0.03 MCG/KG/MIN 3. 947 mls/hr IV .Q24H [facility] Rx#:[id number] Piperacillin-Tazobactam 3 50 25 .375 gm In Sodium Chloride 0.9% 100 ml @ 25 mls/hr IVPB Q8HR [facility] Rx# :[id number] Output: Urine 550 780 145 Other: Voiding Method Indwelling Catheter Indwelling Catheter Indwelling Catheter ABP, PAP, CO, CI - Last Documented Arterial Blood Pressure 108/51 - Exam In general patient is alert responsive maintained on BiPAP HEENT head normocephalic and atraumatic Neck is supple no JVD no goiter no lymphadenopathy no carotid bruit Chest examination reveals a scattered crackles bilaterally with mild wheezing Cardiac exam reveals regular heart sounds S1 and S2 no gallops no murmurs Abdomen is soft nontender no organomegaly with normal bowel sounds Extremity exam reveals no edema no cyanosis or clubbing, poor pulses peripherally Neurological examination reveals no gross focal deficits - Labs CBC & Chem 7: 01/09/22 05:40 01/09/22 05:40 Labs: Abnormal Lab Results - Last 24 Hours (Table) 01/08/22 01/09/22 01/09/22 Range/Units 20:10 02:54 05:40 WBC (3.8-10.6) k/uL Hgb (11.4-16.0) gm/dL Plt Count (150-450) k/uL Neutrophils # (1.3-7.7) k/uL Lymphocytes # (1.0-4.8) k/uL APTT 37.9 H 75.9 H (22.0-30.0) sec Chloride 110 H (98-107) mmol/L BUN 63 H (7-17) mg/dL Creatinine 1.41 H (0.52-1.04) mg/dL Glucose 158 H (74-99) mg/dL Calcium 7.1 L (8.4-10.2) mg/dL Total Protein 4.2 L (6.3-8.2) g/dL Albumin 2.0 L (3.5-5.0) g/dL 01/09/22 Range/Units 05:40 WBC 14.8 H (3.8-10.6) k/uL Hgb 10.6 L (11.4-16.0) gm/dL Plt Count 489 H (150-450) k/uL Neutrophils # 13.2 H (1.3-7.7) k/uL Lymphocytes # 0.5 L (1.0-4.8) k/uL APTT (22.0-30.0) sec Chloride (98-107) mmol/L BUN (7-17) mg/dL Creatinine (0.52-1.04) mg/dL Glucose (74-99) mg/dL Calcium (8.4-10.2) mg/dL Total Protein (6.3-8.2) g/dL Albumin (3.5-5.0) g/dL Microbiology - Last 24 Hours (Table) 01/07/22 13:56 Blood Culture - Preliminary Blood No Growth after 24 hours 01/07/22 13:56 Blood Culture - Preliminary Blood No Growth after 24 hours Assessment and Plan Plan: Acute hypoxic respiratory failure Acute coronary 19 pneumonia Underlying history of chronic obstructive pulmonary disease Sepsis as evidenced by leukocytosis, tachycardia, mild elevation in lactic acid and hypotension Elevated d-dimer Acute kidney injury possibly related to dehydration and prerenal azotemia, will monitor kidney function Underlying history of hypertension Underlying history of hypothyroidism Chronic tobacco use patient smokes up to 2 packs per day At this time patient is admitted to intensive care unit Pulmonary, vascular surgery, and cardiology consultation requested Patient started on IV antibiotics, IV a Remdesevir, IV steroids and inhaled bronchodilators Patient was also started on IV heparin Medication and labs reviewed will follow closely Prognosis is guarded due to severity of illness
[2022-01-09] MEDS: IPRATROPIUM-ALBUTEROL 3 ML NEB INHALATION SCH (09:54)
[2022-01-09] MEDS: NOREPINEPHRINE 8 MG in SODIUM CHLORIDE 0.9% 250 ML IV SCH ×2 (11:35→23:43)
[2022-01-09] MEDS: DEXTROSE 5% IN WATER 1,000 ML with SODIUM BICARB (1 MEQ/ML) 150 ML IV SCH (11:35)
--- NOTE | 2022-01-09 11:56 | P.PN ---
Subjective Progress Note Date: 01/09/22 Principal diagnosis: Acute hypoxic resource failure secondary to COVID-19 pneumonia This is a 76-year-old female who is not a great historian, her daughter is at bedside, patient is known to have history of hypothyroidism, COPD, history generalized anxiety disorder, patient has been weak for the last few days. According to the daughter, patient fell 4 days ago, and has been complaining of pain to her buttocks. Patient also had some intermittent cough, shortness of breath, and according to the daughter the patient has not been taking her medications including her thyroid medicine and her Combivent for COPD. Patient is a heavy smoker, she smoked 2 packs a day for many years. Does not use oxygen at home. Workup in the ER included a CBC which showed leukocytosis. Elevated d-dimer of 3.94. Abnormal renal profile with a BUN of 76 creatinine of 1.92 and low sodium of 129, elevated BNP level of 2580, normal troponin, and normal liver enzymes. Patient was also noted to have positive PCR for COVID-19, chest x-ray showed multifocal reticular markings and multifocal atypical infiltrates. Possible underlying pulmonary fibrosis. No old x-ray for comparison. Patient was also noted to be relatively hypotensive requiring fluid boluses with slight improvement of the blood pressure. I saw this patient in the ER, and I recommended admitting the patient to the ICU. In the meantime I ordered a high- resolution CT of the chest, started the patient on Remdesivir, patient is on 6 L nasal cannula, recommended fluid boluses, empiric antibiotics, pro-calcitonin level is pending, and order the COVID-19 cocktail. Reevaluated today on 01/08/22, patient remains in the ICU, her condition became a bit worse overnight, patient had to be placed on BiPAP, and she is now on BiPAP FiO2 of 50% IPAP 16 and EPAP of 6 I was able to cut down her FiO2 to 45% and her IPAP 10-14 EPAP remains at 6. Patient is requiring norepinephrine for low blood pressure, hence this is clearly a presentation of septic shock. Patient is requiring norepinephrine at 0.38 mcg/kg/m, her IV fluid went down to KVO after she received 4 L of fluids last night, felt that the patient was over hydrated, and her urine output picked up last night and I was notified about her worsening pulmonary status recommended Lasix dose earlier today with good response to the Lasix. Her creatinine is improving when down from 1.92-1.70 today. Bicarb remains low at 14 on him recommending a bicarb drip. Today I was able to establish a triple-lumen catheter and arterial line and the patient, her pro calcitonin was noted to be high at 5.47, patient was initially placed on vancomycin and Zosyn, blood cultures are negative so far, I'm recommending that we continue Zosyn, discontinue vancomycin, and recommending infectious disease consultation. I'm also recommending a CT of the lumbosacral spine since the patient has significant area of ecchymosis in the buttock area and low back. Apparently she fell 4 days ago. And she had significant amount of pain. The ER physician ordered a thoracic spine CT but did not address the lumbar spine area which seems to be the area of pain and the area of trauma. Patient remains on the COVID-19 cocktail. And I started the patient yesterday on Remdesivir. Since her symptoms were recent within the therapeutic window. WBC count is 20.2 hemoglobin is 12.5. Electrodes are normal except elevated potassium and that will improve with bicarbonate drip. Renal profile as noted earlier. Pro- calcitonin level is very high at 5.47 Reevaluated today on , patient remains in the ICU, remains on BiPAP, FiO2 40%, IPAP of 14 EPAP of 6. Remains on small dose of norepinephrine at 0.1 mcg/kg/m, patient remains on bicarb drip, I cut it down to 25 mL per hour today. Yesterday she had ultrasound of the gallbladder showing mostly cholelithiasis but no cholecystitis. Patient had negative CT of the lumbar spine. Remains on Zosyn empirically since her pro calcitonin level was quite high. She has better urine output, 35-50 mL per hour. Planning today to change from BiPAP possibly to airvo. Planning to gently diurese the patient, her chest x-ray is not mera wing much of a change in her bilateral interstitial infiltrates, and again I strongly suspect ongoing interstitial lung disease. WBC count 14.8 hemoglobin is 10.6, PTT is 73.7, patient remains on heparin. Basic metabolic profile is normal, BUN is 63 and creatinine 1.41. Objective - Vital Signs Vital signs: Vital Signs Temp 98 F 01/09/22 04:00 Pulse 70 01/09/22 11:00 Resp 22 01/09/22 11:00 BP 98/58 01/09/22 04:00 Pulse Ox 94 L 01/09/22 11:00 FiO2 50 01/09/22 11:11 Intake & Output 01/08/22 01/09/22 01/09/22 18:59 06:59 18:59 Intake Total 1332.055 969.182 492.214 Output Total 550 780 495 Balance 782.055 189.182 -2.786 Weight 68 kg 68.7 kg Intake: IV 215 696 235 0.9NS Pressure Bag 15 36 15 Dextrose 5% in Water 1, 550 200 000 ml @ 25 mls/hr IV . Q24H [facility] with Sodium Bicarb (1 Meq/ml) 150 ml Rx#:[id number] KVO 20 110 20 Sodium Chloride 0.9% 1, 180 0 000 ml @ 125 mls/hr IV . Q8H [facility] Rx#:[id number] Intake, IV Titration 1117.055 273.182 257.214 Amount Dextrose 5% in Water 1, 400 000 ml @ 25 mls/hr IV . Q24H [facility] with Sodium Bicarb (1 Meq/ml) 150 ml Rx#:[id number] Heparin Sod,Pork in 0.45% 88.330 156.514 NaCl 25,000 unit In 0.45 % NaCl 1 250ml.bag @ 12 UNITS/KG/HR 7.348 mls/hr IV .Q24H [facility] Rx#: [id number] Norepinephrine 4 mg In 452.800 Sodium Chloride 0.9% 250 ml @ 0.03 MCG/KG/MIN 7. 772 mls/hr IV .Q24H [facility] Rx#:[id number] Norepinephrine 8 mg In 125.925 91.668 207.214 Sodium Chloride 0.9% 250 ml @ 0.03 MCG/KG/MIN 3. 947 mls/hr IV .Q24H [facility] Rx#:[id number] Piperacillin-Tazobactam 3 50 25 50 .375 gm In Sodium Chloride 0.9% 100 ml @ 25 mls/hr IVPB Q8HR [facility] Rx# :[id number] Output: Urine 550 780 495 Other: Voiding Method Indwelling Catheter Indwelling Catheter Indwelling Catheter ABP, PAP, CO, CI - Last Documented Arterial Blood Pressure 95/46 - Exam Physical Exam: Revealed 76-year-old female in no distress, remains on BiPAP, 40% 14/6 Head: Atraumatic, normocephalic. HEENT:[Neck is supple.] [No neck masses.] [No thyromegaly.] [No JVD.] Dry mu cous membranes. Chest: [Symmetrical chest expansion crackles at the bases bilaterally. Cardiac Exam: [Normal S1 and S2, no S3 gallop, no murmur.] Abdomen: [Soft, nontender, no megaly, no rebound, no guarding, normal bowel sounds.] Extremities: [No clubbing, no edema, no cyanosis.] Neurological Exam: [No focal neurologic deficit.] Less confused today compared to yesterday Psychiatric: Normal mood, affect and normal mental status examination. Skin: Areas of ecchymosis and recent trauma noted to the buttock area and to the lumbosacral spine. Musculoskeletal: No deformities and no limitation of range of motion - Labs CBC & Chem 7: 01/09/22 05:40 01/09/22 05:40 Labs: Abnormal Lab Results - Last 24 Hours (Table) 01/08/22 01/09/22 01/09/22 Range/Units 20:10 02:54 05:40 WBC (3.8-10.6) k/uL Hgb (11.4-16.0) gm/dL Plt Count (150-450) k/uL Neutrophils # (1.3-7.7) k/uL Lymphocytes # (1.0-4.8) k/uL APTT 37.9 H 75.9 H (22.0-30.0) sec Chloride 110 H (98-107) mmol/L BUN 63 H (7-17) mg/dL Creatinine 1.41 H (0.52-1.04) mg/dL Glucose 158 H (74-99) mg/dL Calcium 7.1 L (8.4-10.2) mg/dL Total Protein 4.2 L (6.3-8.2) g/dL Albumin 2.0 L (3.5-5.0) g/dL 01/09/22 01/09/22 Range/Units 05:40 09:34 WBC 14.8 H (3.8-10.6) k/uL Hgb 10.6 L (11.4-16.0) gm/dL Plt Count 489 H (150-450) k/uL Neutrophils # 13.2 H (1.3-7.7) k/uL Lymphocytes # 0.5 L (1.0-4.8) k/uL APTT 73.7 H (22.0-30.0) sec Chloride (98-107) mmol/L BUN (7-17) mg/dL Creatinine (0.52-1.04) mg/dL Glucose (74-99) mg/dL Calcium (8.4-10.2) mg/dL Total Protein (6.3-8.2) g/dL Albumin (3.5-5.0) g/dL Microbiology - Last 24 Hours (Table) 01/07/22 13:56 Blood Culture - Preliminary Blood No Growth after 24 hours 01/07/22 13:56 Blood Culture - Preliminary Blood No Growth after 24 hours Assessment and Plan Assessment: Impression: Acute hypoxic respiratory failure secondary to acute COVID-19 pneumonia, u nderlying bacterial pneumonia is very likely considering her chest x-ray findings and considering elevated pro calcitonin level. Possible interstitial lung disease/pulmonary fibrosis, likely contributing to her acute hypoxic respiratory failure Hypotension, secondary to sepsis/septic shock, and I believe there is significant component of dehydration/hypovolemia, this implies that the patient had septic and hypovolemic shock History of underlying COPD does not seem to be active at this point. But likely contributing to her hypoxic respiratory failure History of hypothyroidism History of generalized anxiety disorder Elevated d-dimer but negative venous Doppler for DVT, cannot perform CT rudolph ogram of the chest mostly because of her renal functioning Acute dehydration Acute kidney injury secondary to dehydration Paroxysmal atrial fibrillation Recommendation: Continue to monitor in the ICU, continue BiPAP, we will likely transition to airvo today. Continue present supportive care measures Hemodynamic support, continue norepinephrine however titrate to a mean arterial pressure of 65 Continue Zosyn, off vancomycin. CT of lumbar spine, negative for fracture. High-resolution CT of the chest is suggestive of possible interstitial lung disease and underlying COPD. Continue Remdesivir. Continue heparin. Will likely transition to eliquis Continue COVID-19 cocktail. Bronchodilators and IV Decadron Continue bicarb drip however cut down to 25 mL per hour Patient is critically ill, critical care time is over 30 minutes Time with Patient: Greater than 30
[2022-01-09] MEDS: ALPRAZolam 0.25 MG TAB PO PRN ×2 (13:41→20:12)
[2022-01-09] MEDS: REMDESIVIR 100 MG in SODIUM CHLORIDE 0.9% 250 ML IVPB SCH (16:59)
--- NOTE | 2022-01-09 20:04 | PN ---
PROGRESS NOTE HISTORY OF PRESENT ILLNESS: This is a 76-year-old lady, who was admitted to hospital with COVID pneumonia, atrial fibrillation, hypotension. She looks somewhat better today. Her oxygenation is the same. She is in less respiratory distress, more alert and requiring less pressor support. PHYSICAL EXAMINATION: VITAL SIGNS: On exam, heart rate is 80 beats per minute, blood pressure is 96/48, respiratory rate is 18. CHEST: Reveals bilateral wheezes. HEART: Reveals first and second heart sounds, irregular rhythm. ABDOMEN: Soft. EXTREMITIES: Reveals mild edema. Peripheral pulses are felt. LABORATORY DATA: Labs show a hemoglobin of 10.6, platelet count is 489, potassium is 4.6, BUN is 63, creatinine is 1.4. ASSESSMENT: 1. Coronavirus infection with COVID pneumonia and renal failure. 2. Hypotension. 3. Persistent atrial fibrillation. PLAN: I will continue the patient on IV heparin. I will switch her to Coumadin when her multiorgan failure issues improve. MMODL / IJN: [id number] /
[2022-01-09] MEDS: HEPARIN SOD,PORK IN 0.45% NACL 25,000 UNIT in 0.45% NACL 1 250ML.BAG IV SCH (20:18)
[2022-01-09] MEDS: risperiDONE 2 MG TAB PO SCH (20:43)
--- NOTE | 2022-01-09 20:54 | CA ---
Transthoracic Echo Report Name: Samantha Brown Age: 76 Gender: F : 1945 Exam Date: 01/09/2022 09:36 Exam Location: [facility] Ht (in): 60 Wt (lb): 151 Ordering Physician: Aj Guerrero MD Attending/Referring Phys: Actuarial Technician Rashmi Mchugh, YANDEL Procedure CPT: Indications: assess heart, afib Cardiac Hx: Pt is Covid Positive. Technical Quality: Contrast 1: Total Dose (mL): Contrast 2: Total Dose (mL): MEASUREMENTS (Male / Female) Normal Values 2D ECHO LV Diastolic Diameter PLAX 3.4 cm 4.2 - 5.9 / 3.9 - 5.3 cm LV Systolic Diameter PLAX 2.2 cm IVS Diastolic Thickness 0.8 cm 0.6 - 1.0 / 0.6 - 0.9 cm LVPW Diastolic Thickness 1.5 cm 0.6 - 1.0 / 0.6 - 0.9 cm LV Relative Wall Thickness 0.7 RV Internal Dim ED PLAX 3.3 cm LA Systolic Diameter LX 2.5 cm 3.0 - 4.0 / 2.7 - 3.8 cm M-MODE Aortic Root Diameter MM 3.2 cm LA Systolic Diameter MM 3.3 cm LA Ao Ratio MM 1.0 MV E Point Septal Separation 0.3 cm AV Cusp Separation MM 1.4 cm DOPPLER TR Peak Velocity 217.1 cm/s TR Peak Gradient 18.9 mmHg Right Ventricular Systolic Press 22.5 mmHg FINDINGS Left Ventricle Normal left ventricular size, wall thickness, systolic function with no obvious regional wall motion abnormalities. Left ventricular ejection fraction is estimated at 55%. Limited study with limited views Right Ventricle The right ventricle is normal in size and function. Right ventricular systolic pressure within normal limits. Right Atrium The right atrium is normal in size. Left Atrium The left atrium is normal in size. Mitral Valve Structurally normal mitral valve without significant stenosis or prolapse. There is mild mitral regurgitation. Aortic Valve Structurally normal aortic valve without significant sclerosis or stenosis. There is no aortic regurgitation. Tricuspid Valve Structurally normal tricuspid valve without significant stenosis. Pulmonary artery systolic pressure is normal. Pulmonic Valve Structurally normal pulmonic valve without significant stenosis. There is no pulmonic regurgitation. Pericardium Normal pericardium without effusion. Aorta Normal aortic root dimension. CONCLUSIONS Limited study with limited views preserved systolic function no significant abnormality on the Doppler exam other than mild mitral and tricuspid insufficiency. No pericardial effusion Previewed by: Dr. Ivan Malagon MD (Electronically Signed) Final Date: 09 January 2022 20:53
[2022-01-10 04:18] LABS: Basophils # (A) 0.1 k/uL (0-0.2); Basophils % (A) 1 %; Eosinophils % (A) 0 %; HCT 33.5 % (34.0-46.0); HGB 10.8 gm/dL (11.4-16.0); Hypochromasia Slight; Lymphocytes # (A) 0.4 k/uL (1.0-4.8); Lymphocytes % (A) 4 %; MCH 27.7 pg (25.0-35.0); MCHC 32.2 g/dL (31.0-37.0); MCV 86.1 fL (80.0-100.0); Mean Platelet Volume 8.1; Monocytes # (A) 1.2 k/uL (0-1.0); Monocytes % (A) 11 %; Neutrophils # (A) 9.2 k/uL (1.3-7.7); Neutrophils % (A) 83 %; Platelet Count 394 k/uL (150-450); RBC 3.89 m/uL (3.80-5.40); RDW 14.7 % (11.5-15.5)
[2022-01-10 04:39] LABS: Albumin 2.1 g/dL (3.5-5.0); Calcium 7.3 mg/dL (8.4-10.2); Total Bilirubin 0.5 mg/dL (0.2-1.3); Total Protein 4.4 g/dL (6.3-8.2)
[2022-01-10] MEDS: SODIUM CHLORIDE 0.9% 1,000 ML IV SCH ×3 (05:04→19:08)
[2022-01-10] MEDS: LEVOTHYROXINE 75 MCG TAB PO SCH (05:58)
--- NOTE | 2022-01-10 07:15 | XR ---
EXAMINATION TYPE: XR chest 1V portable DATE OF EXAM: 01/10/2022 CLINICAL HISTORY: Difficulty breathing progress study. TECHNIQUE: Single AP portable upright view of the chest is obtained. COMPARISON: Chest x-ray from one day earlier and older studies. FINDINGS: Reticular increased markings bilaterally redemonstrated. Small to tiny bilateral pleural e ffusions suspected. No pneumothorax seen bilaterally. The cardiac silhouette size is stable and withi n normal limits. The osseous structures are intact. IMPRESSION: Suspect bilateral multifocal infiltrates and/or edema on background chronic parenchymal c hanges. No significant change from one day earlier.
[2022-01-10] MEDS: DEXAMETHASONE SOD PHOSPHATE 10 MG/ML 1 ML VIAL IVP SCH (08:10)
[2022-01-10] MEDS: ALPRAZolam 0.25 MG TAB PO PRN ×2 (08:12→22:27)
[2022-01-10] MEDS: CITALOPRAM HYDROBROMIDE 10 MG TAB PO SCH (08:12)
[2022-01-10] MEDS: ASCORBIC ACID 500 MG TAB PO SCH ×2 (08:13→20:02)
[2022-01-10] MEDS: CHOLECALCIFEROL 25 MCG (1000 IU) TABLET PO SCH (08:13)
[2022-01-10] MEDS: ZINC SULFATE 220 MG CAP PO SCH (08:13)
[2022-01-10] MEDS: PANTOPRAZOLE 40 MG/10 ML VIAL IV SCH (08:14)
[2022-01-10] MEDS: PIPERACILLIN-TAZOBACTAM 3.375 GM in SODIUM CHLORIDE 0.9% 100 ML IVPB SCH ×3 (08:15→23:13)
[2022-01-10] MEDS: ALBUTEROL HFA INHALER INHALATION SCH ×4 (08:39→19:40)
[2022-01-10] MEDS: SYMBICORT 160-4.5 MCG INHALER INHALATION SCH ×2 (08:39→19:40)
[2022-01-10] MEDS: TIOTROPIUM 2.5 MCG INHALER INHALATION SCH (08:40)
[2022-01-10] MEDS: APIXABAN 5 MG TAB PO SCH ×2 (11:28→20:02)
--- NOTE | 2022-01-10 12:03 | P.PN ---
Subjective Progress Note Date: 01/10/22 Principal diagnosis: Acute hypoxic resource failure secondary to COVID-19 pneumonia This is a 76-year-old female who is not a great historian, her daughter is at bedside, patient is known to have history of hypothyroidism, COPD, history generalized anxiety disorder, patient has been weak for the last few days. According to the daughter, patient fell 4 days ago, and has been complaining of pain to her buttocks. Patient also had some intermittent cough, shortness of breath, and according to the daughter the patient has not been taking her medications including her thyroid medicine and her Combivent for COPD. Patient is a heavy smoker, she smoked 2 packs a day for many years. Does not use oxygen at home. Workup in the ER included a CBC which showed leukocytosis. Elevated d-dimer of 3.94. Abnormal renal profile with a BUN of 76 creatinine of 1.92 and low sodium of 129, elevated BNP level of 2580, normal troponin, and normal liver enzymes. Patient was also noted to have positive PCR for COVID-19, chest x-ray showed multifocal reticular markings and multifocal atypical infiltrates. Possible underlying pulmonary fibrosis. No old x-ray for comparison. Patient was also noted to be relatively hypotensive requiring fluid boluses with slight improvement of the blood pressure. I saw this patient in the ER, and I recommended admitting the patient to the ICU. In the meantime I ordered a high- resolution CT of the chest, started the patient on Remdesivir, patient is on 6 L nasal cannula, recommended fluid boluses, empiric antibiotics, pro-calcitonin level is pending, and order the COVID-19 cocktail. Reevaluated today on 01/08/22, patient remains in the ICU, her condition became a bit worse overnight, patient had to be placed on BiPAP, and she is now on BiPAP FiO2 of 50% IPAP 16 and EPAP of 6 I was able to cut down her FiO2 to 45% and her IPAP 10-14 EPAP remains at 6. Patient is requiring norepinephrine for low blood pressure, hence this is clearly a presentation of septic shock. Patient is requiring norepinephrine at 0.38 mcg/kg/m, her IV fluid went down to KVO after she received 4 L of fluids last night, felt that the patient was over hydrated, and her urine output picked up last night and I was notified about her worsening pulmonary status recommended Lasix dose earlier today with good response to the Lasix. Her creatinine is improving when down from 1.92-1.70 today. Bicarb remains low at 14 on him recommending a bicarb drip. Today I was able to establish a triple-lumen catheter and arterial line and the patient, her pro calcitonin was noted to be high at 5.47, patient was initially placed on vancomycin and Zosyn, blood cultures are negative so far, I'm recommending that we continue Zosyn, discontinue vancomycin, and recommending infectious disease consultation. I'm also recommending a CT of the lumbosacral spine since the patient has significant area of ecchymosis in the buttock area and low back. Apparently she fell 4 days ago. And she had significant amount of pain. The ER physician ordered a thoracic spine CT but did not address the lumbar spine area which seems to be the area of pain and the area of trauma. Patient remains on the COVID-19 cocktail. And I started the patient yesterday on Remdesivir. Since her symptoms were recent within the therapeutic window. WBC count is 20.2 hemoglobin is 12.5. Electrodes are normal except elevated potassium and that will improve with bicarbonate drip. Renal profile as noted earlier. Pro- calcitonin level is very high at 5.47 Reevaluated today on , patient remains in the ICU, remains on BiPAP, FiO2 40%, IPAP of 14 EPAP of 6. Remains on small dose of norepinephrine at 0.1 mcg/kg/m, patient remains on bicarb drip, I cut it down to 25 mL per hour today. Yesterday she had ultrasound of the gallbladder showing mostly cholelithiasis but no cholecystitis. Patient had negative CT of the lumbar spine. Remains on Zosyn empirically since her pro calcitonin level was quite high. She has better urine output, 35-50 mL per hour. Planning today to change from BiPAP possibly to airvo. Planning to gently diurese the patient, her chest x-ray is not mera wing much of a change in her bilateral interstitial infiltrates, and again I strongly suspect ongoing interstitial lung disease. WBC count 14.8 hemoglobin is 10.6, PTT is 73.7, patient remains on heparin. Basic metabolic profile is normal, BUN is 63 and creatinine 1.41. Reevaluated today on 01/10/22, patient remains in the ICU, remains on BiPAP, she is on 40% FiO2 IPAP of 12 EPAP of 5 Reed seems to be comfortable, and not in distress. Feeling better. Remains on heparin and she remains on norepinephrine at 0.1 mcg/kg/m. Today I am changes heparin to eliquis which she took on outpatient basis. Chest x-ray continues to show interstitial lung disease and interstitial infiltrates. Clinically the patient is feeling better. Her renal functioning is almost back to normal. Continues to have good urine output with diuresis. BUN is down to 60 creatinine is down to 1.12 patient remains on Remdesivir she remains on the COVID-19 cocktail. Objective - Vital Signs Vital signs: Vital Signs Temp 97.4 F L 01/10/22 08:00 Pulse 63 01/10/22 11:00 Resp 17 01/10/22 11:00 BP 98/58 01/09/22 04:00 Pulse Ox 94 L 01/10/22 11:00 FiO2 60 01/10/22 11:17 Intake & Output 01/09/22 01/10/22 01/10/22 18:59 06:59 18:59 Intake Total 1134.095 992.974 214 Output Total 1595 995 270 Balance -460.905 -2.026 -56 Weight 69.5 kg Intake: IV 476 456 214 0.9 Normal Saline @ 10mL/ 90 120 30 hr KVO 0.9NS Pressure Bag 36 36 9 Dextrose 5% in Water 1, 350 300 75 000 ml @ 25 mls/hr IV . Q24H [facility] with Sodium Bicarb (1 Meq/ml) 150 ml Rx#:[id number] Piperacillin-Tazobactam 3 100 .375 gm In Sodium Chloride 0.9% 100 ml @ 25 mls/hr IVPB Q8HR [facility] Rx# :[id number] Intake, IV Titration 658.095 386.974 Amount Heparin Sod,Pork in 0.45% 99.565 157.746 NaCl 25,000 unit In 0.45 % NaCl 1 250ml.bag @ 12 UNITS/KG/HR 7.348 mls/hr IV .Q24H [facility] Rx#: [id number] Norepinephrine 8 mg In 258.530 229.228 Sodium Chloride 0.9% 250 ml @ 0.03 MCG/KG/MIN 3. 947 mls/hr IV .Q24H [facility] Rx#:[id number] Piperacillin-Tazobactam 3 50 .375 gm In Sodium Chloride 0.9% 100 ml @ 25 mls/hr IVPB Q8HR [facility] Rx# :[id number] Remdesivir 100 mg In 250 Sodium Chloride 0.9% 250 ml @ 250 mls/hr IVPB DAILY@1600 [facility] Rx#: [id number] Oral 150 Output: Urine 1595 995 270 Other: Voiding Method Indwelling Catheter Indwelling Catheter Indwelling Catheter # Bowel Movements 1 1 ABP, PAP, CO, CI - Last Documented Arterial Blood Pressure 110/51 - Exam Physical Exam: Revealed 76-year-old female in no distress, remains on BiPAP Head: Atraumatic, normocephalic. HEENT:[Neck is supple.] [No neck masses.] [No thyromegaly.] [No JVD.] Dry mucous membranes. Chest: [Symmetrical chest expansion crackles at the bases bilaterally. Cardiac Exam: [Normal S1 and S2, no S3 gallop, no murmur.] Abdomen: [Soft, nontender, no megaly, no rebound, no guarding, normal bowel sounds.] Extremities: [No clubbing, no edema, no cyanosis.] Neurological Exam: [No focal neurologic deficit.] Less confused today compared to yesterday Psychiatric: Normal mood, affect and normal mental status examination. Skin: Areas of ecchymosis and recent trauma noted to the buttock area and to the lumbosacral spine. Musculoskeletal: No deformities and no limitation of range of motion - Labs CBC & Chem 7: 01/10/22 04:20 01/10/22 04:00 Labs: Abnormal Lab Results - Last 24 Hours (Table) 01/09/22 01/10/22 01/10/22 Range/Units 19:00 04:00 04:00 WBC (3.8-10.6) k/uL Hgb (11.4-16.0) gm/dL Hct (34.0-46.0) % Neutrophils # (1.3-7.7) k/uL Lymphocytes # (1.0-4.8) k/uL Monocytes # (0-1.0) k/uL APTT 54.7 H 76.8 H (22.0-30.0) sec BUN 60 H (7-17) mg/dL Creatinine 1.12 H (0.52-1.04) mg/dL Glucose 147 H (74-99) mg/dL Calcium 7.3 L (8.4-10.2) mg/dL Total Protein 4.4 L (6.3-8.2) g/dL Albumin 2.1 L (3.5-5.0) g/dL 01/10/22 Range/Units 04:20 WBC 11.0 H (3.8-10.6) k/uL Hgb 10.8 L (11.4-16.0) gm/dL Hct 33.5 L (34.0-46.0) % Neutrophils # 9.2 H (1.3-7.7) k/uL Lymphocytes # 0.4 L (1.0-4.8) k/uL Monocytes # 1.2 H (0-1.0) k/uL APTT (22.0-30.0) sec BUN (7-17) mg/dL Creatinine (0.52-1.04) mg/dL Glucose (74-99) mg/dL Calcium (8.4-10.2) mg/dL Total Protein (6.3-8.2) g/dL Albumin (3.5-5.0) g/dL Microbiology - Last 24 Hours (Table) 01/07/22 13:56 Blood Culture - Preliminary Blood No Growth after 48 hours 01/07/22 13:56 Blood Culture - Preliminary Blood No Growth after 48 hours Assessment and Plan Assessment: Impression: Acute hypoxic respiratory failure secondary to acute COVID-19 pneumonia, underlying bacterial pneumonia is very likely considering her chest x-ray findings and considering elevated pro calcitonin level. Possible interstitial lung disease/pulmonary fibrosis, likely contributing to her acute hypoxic respiratory failure Hypotension, secondary to sepsis/septic shock, and I believe there is significant component of dehydration/hypovolemia, this implies that the patient had septic and hypovolemic shock History of underlying COPD does not seem to be active at this point. But likely contributing to her hypoxic respiratory failure History of hypothyroidism History of generalized anxiety disorder Elevated d-dimer but negative venous Doppler for DVT, cannot perform CT angiogram of the chest mostly because of her renal functioning Acute dehydration Acute kidney injury secondary to dehydration Paroxysmal atrial fibrillation Recommendation: Continue to monitor in the ICU, continue BiPAP, however will give the patient a trial of airvo instead maybe even high flow nasal cannula today per Continue present supportive care measures Change happened to elizabeth. Titrate the norepinephrine down as tolerated and maintain a mean arterial pressure above 60 Continue Zosyn, this is empiric treatment, patient had elevated pro calcitonin, blood cultures remain negative CT of lumbar spine, negative for fracture. High-resolution CT of the chest is suggestive of possible interstitial lung disease and underlying COPD. Continue Remdesivir. Patient is on day #4 Continue COVID-19 cocktail. Continue Decadron and continue bronchodilators Discontinue bicarb drip Patient is critically ill, critical care time is over 30 minutes Time with Patient: Greater than 30
[2022-01-10] MEDS: REMDESIVIR 100 MG in SODIUM CHLORIDE 0.9% 250 ML IVPB SCH (16:19)
--- NOTE | 2022-01-10 17:30 | P.PN ---
Subjective Progress Note Date: 01/10/22 Samantha Brown, is a 76-year-old female who presented to [facility] emergency room with a chief complaint of generalized weakness, patient's daughter reported in the emergency room that her mother had a fall 4 days prior to presentation She was evaluated in the emergency room vital examination on presentation revealed Laboratory data revealed a white blood count of 14.4 hemoglobin 12.2 platelet count 476 INR 1.2 d-dimer 3.94 sodium 129 potassium 5.1 chloride 99 CO2 23 BUN 76 creatinine 1.92 lactic acid 1.7 Corps on a virus PCR was positive Testing in the emergency room revealed chest x-ray done in emergency room revealed small bilateral pleural effusions and multifocal areas of increased reticular markings, EKG revealed atrial fibrillation with a heart rate of 86 Patient was admitted to medical floor for further evaluation and treatment. Past medical history is significant for history of hypertension, history of hyperlipidemia, history of hypothyroidism, and history of tobacco use patient smokes 2 packs per day On 01/08/2022 patient was seen and examined in the ICU she is alert responsive in mild distress due to shortness of breath, she was started on BiPAP during the night, she is maintained on norepinephrine for pressure support, she is also maintained on IV antibiotic Zosyn, input from cardiology and pulmonary review, patient's daughter Pily contacted over the phone and all questions answered to her satisfaction. On 01/09/2022 patient remains in the intensive care unit slightly improved. Patient remains on BiPAP. Creatinine improving to 1.41 bun 63. Patient remains on IV heparin. Patient also remains on sodium bicarb current vital signs heart rate 88, respiratory rate 19, blood pressure 108/51 patient satting 93% on BiPAP 40% FiO2. On 01/10/2022 patient was seen and examined in the ICU she is alert responsive in no apparent distress she is maintained on BiPAP, she is stating that her shortness of breath is improving she denies any chest pain there is no nausea or vomiting no abdominal pain no diarrhea and no urinary symptoms, however white blood count is 11 hemoglobin 10.8, BUN 60 creatinine 1.12 Objective - Vital Signs Vital signs: Vital Signs Temp 97.3 F L 01/10/22 12:00 Pulse 56 L 01/10/22 13:00 Resp 21 01/10/22 13:00 BP 98/58 01/09/22 04:00 Pulse Ox 97 01/10/22 13:00 FiO2 60 01/10/22 13:00 Intake & Output 01/09/22 01/10/22 01/10/22 18:59 06:59 18:59 Intake Total 1134.095 992.974 328 Output Total 1595 995 390 Balance -460.905 -2.026 -62 Weight 69.5 kg Intake: IV 476 456 328 0.9 Normal Saline @ 10mL/ 90 120 60 hr KVO 0.9NS Pressure Bag 36 36 18 Dextrose 5% in Water 1, 350 300 150 000 ml @ 25 mls/hr IV . Q24H [facility] with Sodium Bicarb (1 Meq/ml) 150 ml Rx#:[id number] Piperacillin-Tazobactam 3 100 .375 gm In Sodium Chloride 0.9% 100 ml @ 25 mls/hr IVPB Q8HR [facility] Rx# :[id number] Intake, IV Titration 658.095 386.974 Amount Heparin Sod,Pork in 0.45% 99.565 157.746 NaCl 25,000 unit In 0.45 % NaCl 1 250ml.bag @ 12 UNITS/KG/HR 7.348 mls/hr IV .Q24H [facility] Rx#: [id number] Norepinephrine 8 mg In 258.530 229.228 Sodium Chloride 0.9% 250 ml @ 0.03 MCG/KG/MIN 3. 947 mls/hr IV .Q24H [facility] Rx#:[id number] Piperacillin-Tazobactam 3 50 .375 gm In Sodium Chloride 0.9% 100 ml @ 25 mls/hr IVPB Q8HR [facility] Rx# :[id number] Remdesivir 100 mg In 250 Sodium Chloride 0.9% 250 ml @ 250 mls/hr IVPB DAILY@1600 [facility] Rx#: [id number] Oral 150 Output: Urine 1595 995 390 Other: Voiding Method Indwelling Catheter Indwelling Catheter Indwelling Catheter # Bowel Movements 1 1 ABP, PAP, CO, CI - Last Documented Arterial Blood Pressure 85/46 - Exam In general patient is alert responsive maintained on BiPAP HEENT head normocephalic and atraumatic Neck is supple no JVD no goiter no lymphadenopathy no carotid bruit Chest examination reveals a scattered crackles bilaterally with mild wheezing Cardiac exam reveals regular heart sounds S1 and S2 no gallops no murmurs Abdomen is soft nontender no organomegaly with normal bowel sounds Extremity exam reveals no edema no cyanosis or clubbing, poor pulses peripherally Neurological examination reveals no gross focal deficits - Labs CBC & Chem 7: 01/10/22 04:20 01/10/22 04:00 Labs: Abnormal Lab Results - Last 24 Hours (Table) 01/09/22 01/10/22 01/10/22 Range/Units 19:00 04:00 04:00 WBC (3.8-10.6) k/uL Hgb (11.4-16.0) gm/dL Hct (34.0-46.0) % Neutrophils # (1.3-7.7) k/uL Lymphocytes # (1.0-4.8) k/uL Monocytes # (0-1.0) k/uL APTT 54.7 H 76.8 H (22.0-30.0) sec BUN 60 H (7-17) mg/dL Creatinine 1.12 H (0.52-1.04) mg/dL Glucose 147 H (74-99) mg/dL Calcium 7.3 L (8.4-10.2) mg/dL Total Protein 4.4 L (6.3-8.2) g/dL Albumin 2.1 L (3.5-5.0) g/dL 01/10/22 Range/Units 04:20 WBC 11.0 H (3.8-10.6) k/uL Hgb 10.8 L (11.4-16.0) gm/dL Hct 33.5 L (34.0-46.0) % Neutrophils # 9.2 H (1.3-7.7) k/uL Lymphocytes # 0.4 L (1.0-4.8) k/uL Monocytes # 1.2 H (0-1.0) k/uL APTT (22.0-30.0) sec BUN (7-17) mg/dL Creatinine (0.52-1.04) mg/dL Glucose (74-99) mg/dL Calcium (8.4-10.2) mg/dL Total Protein (6.3-8.2) g/dL Albumin (3.5-5.0) g/dL Microbiology - Last 24 Hours (Table) 01/07/22 13:56 Blood Culture - Preliminary Blood No Growth after 48 hours 01/07/22 13:56 Blood Culture - Preliminary Blood No Growth after 48 hours Assessment and Plan Plan: Acute hypoxic respiratory failure Acute coronary 19 pneumonia Underlying history of chronic obstructive pulmonary disease Sepsis as evidenced by leukocytosis, tachycardia, mild elevation in lactic acid and hypotension Elevated d-dimer Acute kidney injury possibly related to dehydration and prerenal azotemia, will monitor kidney function Underlying history of hypertension Underlying history of hypothyroidism Chronic tobacco use patient smokes up to 2 packs per day At this time patient is admitted to intensive care unit Pulmonary, vascular surgery, and cardiology consultation requested Patient started on IV antibiotics, IV a Remdesevir, IV steroids and inhaled bronchodilators Patient was also started on IV heparin Medication and labs reviewed will follow closely Prognosis is guarded due to severity of illness
[2022-01-10] MEDS: NOREPINEPHRINE 8 MG in SODIUM CHLORIDE 0.9% 250 ML IV SCH (18:08)
[2022-01-10] MEDS: DEXTROSE 5% IN WATER 1,000 ML with SODIUM BICARB (1 MEQ/ML) 150 ML IV SCH (19:08)
[2022-01-10] MEDS: risperiDONE 2 MG TAB PO SCH (20:02)
--- NOTE | 2022-01-10 23:07 | PN ---
PROGRESS NOTE HISTORY OF PRESENT ILLNESS: Samantha is a 76-year-old lady who is admitted to ICU with COVID infection with pneumonia and sepsis. She remains in atrial fibrillation with controlled ventricular rate, on Eliquis 5 b.i.d., on Levophed, whose dose is coming down. PHYSICAL EXAMINATION: VITAL SIGNS: Heart rate is 60 beats per minute, blood pressure is 110/52, respiratory rate is 18. CHEST: Reveals good air entry bilaterally. HEART: Reveals first and second heart sounds, irregular rhythm. ABDOMEN: Soft. EXTREMITIES: Did not reveal any edema. LABORATORY DATA: Labs show hemoglobin of 10.8, potassium is 4, creatinine is 1.1. ASSESSMENT: 1. Persistent atrial fibrillation with controlled ventricular rate. 2. Respiratory failure secondary to COVID-19 infection. PLAN: The patient will continue with current medications. MMODL / IJN: [id number] /
[2022-01-11 04:30] LABS: Albumin 1.9 g/dL (3.5-5.0); Calcium 7.3 mg/dL (8.4-10.2); Potassium 3.7 mmol/L (3.5-5.1); Total Bilirubin 0.4 mg/dL (0.2-1.3); Total Protein 4.2 g/dL (6.3-8.2)
[2022-01-11] MEDS ORDERED: Potassium Replacement Protocol 1 EACH MISC MISCELLANE PRN (04:31)
[2022-01-11] MEDS: SODIUM CHLORIDE 0.9% 1,000 ML IV SCH (04:49)
[2022-01-11] MEDS: POTASSIUM CHLORIDE 10 MEQ in WATER FOR INJECTION 1 100ML.BAG IVPB SCH ×2 (04:49→05:52)
[2022-01-11 05:10] LABS: Basophils # (A) 0.1 k/uL (0-0.2); Basophils % (A) 1 %; Eosinophils % (A) 0 %; HCT 33.3 % (34.0-46.0); HGB 10.7 gm/dL (11.4-16.0); Hypochromasia Slight; Lymphocytes # (A) 0.7 k/uL (1.0-4.8); Lymphocytes % (A) 9 %; MCH 27.5 pg (25.0-35.0); MCHC 32.1 g/dL (31.0-37.0); MCV 85.8 fL (80.0-100.0); Mean Platelet Volume 8.9; Monocytes # (A) 0.7 k/uL (0-1.0); Monocytes % (A) 10 %; Neutrophils # (A) 5.9 k/uL (1.3-7.7); Neutrophils % (A) 79 %; Platelet Count 314 k/uL (150-450); RBC 3.88 m/uL (3.80-5.40); RDW 14.6 % (11.5-15.5); WBC 7.5 k/uL (3.8-10.6)
[2022-01-11] MEDS: LEVOTHYROXINE 88 MCG TAB PO SCH (05:52)
[2022-01-11 05:55] LABS: Poikilocytosis (M) Present
[2022-01-11] MEDS: ALBUTEROL HFA INHALER INHALATION SCH ×4 (08:31→21:10)
[2022-01-11] MEDS: SYMBICORT 160-4.5 MCG INHALER INHALATION SCH ×2 (08:31→21:10)
[2022-01-11] MEDS: PIPERACILLIN-TAZOBACTAM 3.375 GM in SODIUM CHLORIDE 0.9% 100 ML IVPB SCH ×3 (09:46→23:58)
[2022-01-11] MEDS: ZINC SULFATE 220 MG CAP PO SCH (09:47)
[2022-01-11] MEDS: PANTOPRAZOLE 40 MG/10 ML VIAL IV SCH (09:47)
[2022-01-11] MEDS: CITALOPRAM HYDROBROMIDE 10 MG TAB PO SCH (09:47)
[2022-01-11] MEDS: APIXABAN 5 MG TAB PO SCH ×2 (09:47→20:19)
[2022-01-11] MEDS: ASCORBIC ACID 500 MG TAB PO SCH ×2 (09:47→20:19)
[2022-01-11] MEDS: DEXAMETHASONE SOD PHOSPHATE 10 MG/ML 1 ML VIAL IVP SCH (09:47)
[2022-01-11] MEDS: CHOLECALCIFEROL 25 MCG (1000 IU) TABLET PO SCH (09:47)
--- NOTE | 2022-01-11 10:15 | P.PN ---
Subjective Progress Note Date: 01/11/22 Samantha Brown, is a 76-year-old female who presented to [facility] emergency room with a chief complaint of generalized weakness, patient's daughter reported in the emergency room that her mother had a fall 4 days prior to presentation She was evaluated in the emergency room vital examination on presentation revealed Laboratory data revealed a white blood count of 14.4 hemoglobin 12.2 platelet count 476 INR 1.2 d-dimer 3.94 sodium 129 potassium 5.1 chloride 99 CO2 23 BUN 76 creatinine 1.92 lactic acid 1.7 Corps on a virus PCR was positive Testing in the emergency room revealed chest x-ray done in emergency room revealed small bilateral pleural effusions and multifocal areas of increased reticular markings, EKG revealed atrial fibrillation with a heart rate of 86 Patient was admitted to medical floor for further evaluation and treatment. Past medical history is significant for history of hypertension, history of hyperlipidemia, history of hypothyroidism, and history of tobacco use patient smokes 2 packs per day On 01/08/2022 patient was seen and examined in the ICU she is alert responsive in mild distress due to shortness of breath, she was started on BiPAP during the night, she is maintained on norepinephrine for pressure support, she is also maintained on IV antibiotic Zosyn, input from cardiology and pulmonary review, patient's daughter Pily contacted over the phone and all questions answered to her satisfaction. On 01/09/2022 patient remains in the intensive care unit slightly improved. Patient remains on BiPAP. Creatinine improving to 1.41 bun 63. Patient remains on IV heparin. Patient also remains on sodium bicarb current vital signs heart rate 88, respiratory rate 19, blood pressure 108/51 patient satting 93% on BiPAP 40% FiO2. On 01/10/2022 patient was seen and examined in the ICU she is alert responsive in no apparent distress she is maintained on BiPAP, she is stating that her shortness of breath is improving she denies any chest pain there is no nausea or vomiting no abdominal pain no diarrhea and no urinary symptoms, however white blood count is 11 hemoglobin 10.8, BUN 60 creatinine 1.12 On 01/11/2022 patient was seen and examined in the ICU she is alert responsive in no apparent distress BiPAP was discontinued and patient was started on Airvo high flow oxygen she is still maintained on levophed for pressure support and this is being weaned down gradually. White blood count is down today to 7.5 BUN down to 45 creatinine 0.83 patient denies any chest pain or shortness of breath is improving, she is receiving IV antibiotic Zosyn she is also receiving Remdesevir for Covid-19 Objective - Vital Signs Vital signs: Vital Signs Temp 96.4 F L 01/11/22 04:00 Pulse 50 L 01/11/22 07:00 Resp 14 01/11/22 07:00 BP 98/58 01/09/22 04:00 Pulse Ox 95 01/11/22 07:00 FiO2 50 01/11/22 07:42 Intake & Output 01/10/22 01/11/22 01/11/22 18:59 06:59 18:59 Intake Total 743.44 573.110 38 Output Total 710 770 50 Balance 33.44 -196.890 -12 Weight 68.723 kg Intake: IV 518 356 38 0.9 Normal Saline @ 10mL/ 110 120 10 hr KVO 0.9NS Pressure Bag 33 36 3 Dextrose 5% in Water 1, 275 200 25 000 ml @ 25 mls/hr IV . Q24H [facility] with Sodium Bicarb (1 Meq/ml) 150 ml Rx#:[id number] Piperacillin-Tazobactam 3 100 .375 gm In Sodium Chloride 0.9% 100 ml @ 25 mls/hr IVPB Q8HR [facility] Rx# :[id number] Intake, IV Titration 225.44 217.110 Amount Norepinephrine 8 mg In 225.44 217.110 Sodium Chloride 0.9% 250 ml @ 0.03 MCG/KG/MIN 3. 947 mls/hr IV .Q24H [facility] Rx#:[id number] Output: Urine 710 770 50 Other: Voiding Method Indwelling Catheter Indwelling Catheter ABP, PAP, CO, CI - Last Documented Arterial Blood Pressure 118/62 - Exam In general patient is alert responsive maintained on BiPAP HEENT head normocephalic and atraumatic Neck is supple no JVD no goiter no lymphadenopathy no carotid bruit Chest examination reveals a scattered crackles bilaterally with mild wheezing Cardiac exam reveals regular heart sounds S1 and S2 no gallops no murmurs Abdomen is soft nontender no organomegaly with normal bowel sounds Extremity exam reveals no edema no cyanosis or clubbing, poor pulses peripherally Neurological examination reveals no gross focal deficits - Labs CBC & Chem 7: 01/11/22 03:57 12 03:57 Labs: Abnormal Lab Results - Last 24 Hours (Table) 01/11/22 12 Range/Units 03:57 03:57 Hgb 10.7 L (11.4-16.0) gm/dL Hct 33.3 L (34.0-46.0) % Lymphocytes # 0.7 L (1.0-4.8) k/uL BUN 45 H (7-17) mg/dL Glucose 133 H (74-99) mg/dL Calcium 7.3 L (8.4-10.2) mg/dL AST 37 H (14-36) U/L Total Protein 4.2 L (6.3-8.2) g/dL Albumin 1.9 L (3.5-5.0) g/dL Microbiology - Last 24 Hours (Table) 01/07/22 13:56 Blood Culture - Preliminary Blood No Growth after 72 hours 01/07/22 13:56 Blood Culture - Preliminary Blood No Growth after 72 hours Assessment and Plan Plan: Acute hypoxic respiratory failure Acute coronary 19 pneumonia Underlying history of chronic obstructive pulmonary disease Sepsis as evidenced by leukocytosis, tachycardia, mild elevation in lactic acid and hypotension Elevated d-dimer Acute kidney injury possibly related to dehydration and prerenal azotemia, will monitor kidney function Underlying history of hypertension Underlying history of hypothyroidism Chronic tobacco use patient smokes up to 2 packs per day At this time patient is admitted to intensive care unit Pulmonary, vascular surgery, and cardiology consultation requested Patient started on IV antibiotics, IV a Remdesevir, IV steroids and inhaled bronchodilators Patient was also started on IV heparin Medication and labs reviewed will follow closely Prognosis is guarded due to severity of illness
[2022-01-11] MEDS: NOREPINEPHRINE 8 MG in SODIUM CHLORIDE 0.9% 250 ML IV SCH (10:44)
--- NOTE | 2022-01-11 11:46 | P.PN ---
Subjective Progress Note Date: 01/11/22 Principal diagnosis: Acute hypoxic resource failure secondary to COVID-19 pneumonia This is a 76-year-old female who is not a great historian, her daughter is at bedside, patient is known to have history of hypothyroidism, COPD, history generalized anxiety disorder, patient has been weak for the last few days. According to the daughter, patient fell 4 days ago, and has been complaining of pain to her buttocks. Patient also had some intermittent cough, shortness of breath, and according to the daughter the patient has not been taking her medications including her thyroid medicine and her Combivent for COPD. Patient is a heavy smoker, she smoked 2 packs a day for many years. Does not use oxygen at home. Workup in the ER included a CBC which showed leukocytosis. Elevated d-dimer of 3.94. Abnormal renal profile with a BUN of 76 creatinine of 1.92 and low sodium of 129, elevated BNP level of 2580, normal troponin, and normal liver enzymes. Patient was also noted to have positive PCR for COVID-19, chest x-ray showed multifocal reticular markings and multifocal atypical infiltrates. Possible underlying pulmonary fibrosis. No old x-ray for comparison. Patient was also noted to be relatively hypotensive requiring fluid boluses with slight improvement of the blood pressure. I saw this patient in the ER, and I recommended admitting the patient to the ICU. In the meantime I ordered a high- resolution CT of the chest, started the patient on Remdesivir, patient is on 6 L nasal cannula, recommended fluid boluses, empiric antibiotics, pro-calcitonin level is pending, and order the COVID-19 cocktail. Reevaluated today on 01/08/22, patient remains in the ICU, her condition became a bit worse overnight, patient had to be placed on BiPAP, and she is now on BiPAP FiO2 of 50% IPAP 16 and EPAP of 6 I was able to cut down her FiO2 to 45% and her IPAP 10-14 EPAP remains at 6. Patient is requiring norepinephrine for low blood pressure, hence this is clearly a presentation of septic shock. Patient is requiring norepinephrine at 0.38 mcg/kg/m, her IV fluid went down to KVO after she received 4 L of fluids last night, felt that the patient was over hydrated, and her urine output picked up last night and I was notified about her worsening pulmonary status recommended Lasix dose earlier today with good response to the Lasix. Her creatinine is improving when down from 1.92-1.70 today. Bicarb remains low at 14 on him recommending a bicarb drip. Today I was able to establish a triple-lumen catheter and arterial line and the patient, her pro calcitonin was noted to be high at 5.47, patient was initially placed on vancomycin and Zosyn, blood cultures are negative so far, I'm recommending that we continue Zosyn, discontinue vancomycin, and recommending infectious disease consultation. I'm also recommending a CT of the lumbosacral spine since the patient has significant area of ecchymosis in the buttock area and low back. Apparently she fell 4 days ago. And she had significant amount of pain. The ER physician ordered a thoracic spine CT but did not address the lumbar spine area which seems to be the area of pain and the area of trauma. Patient remains on the COVID-19 cocktail. And I started the patient yesterday on Remdesivir. Since her symptoms were recent within the therapeutic window. WBC count is 20.2 hemoglobin is 12.5. Electrodes are normal except elevated potassium and that will improve with bicarbonate drip. Renal profile as noted earlier. Pro- calcitonin level is very high at 5.47 Reevaluated today on , patient remains in the ICU, remains on BiPAP, FiO2 40%, IPAP of 14 EPAP of 6. Remains on small dose of norepinephrine at 0.1 mcg/kg/m, patient remains on bicarb drip, I cut it down to 25 mL per hour today. Yesterday she had ultrasound of the gallbladder showing mostly cholelithiasis but no cholecystitis. Patient had negative CT of the lumbar spine. Remains on Zosyn empirically since her pro calcitonin level was quite high. She has better urine output, 35-50 mL per hour. Planning today to change from BiPAP possibly to airvo. Planning to gently diurese the patient, her chest x-ray is not mera wing much of a change in her bilateral interstitial infiltrates, and again I strongly suspect ongoing interstitial lung disease. WBC count 14.8 hemoglobin is 10.6, PTT is 73.7, patient remains on heparin. Basic metabolic profile is normal, BUN is 63 and creatinine 1.41. Reevaluated today on 01/10/22, patient remains in the ICU, remains on BiPAP, she is on 40% FiO2 IPAP of 12 EPAP of 5 Reed seems to be comfortable, and not in distress. Feeling better. Remains on heparin and she remains on norepinephrine at 0.1 mcg/kg/m. Today I am changes heparin to eliquis which she took on outpatient basis. Chest x-ray continues to show interstitial lung disease and interstitial infiltrates. Clinically the patient is feeling better. Her renal functioning is almost back to normal. Continues to have good urine output with diuresis. BUN is down to 60 creatinine is down to 1.12 patient remains on Remdesivir she remains on the COVID-19 cocktail. Reevaluated today on 01/11/22 patient remains in the ICU, she is now on airvo S 50% FiO2 and 60 L flow, saturating in the mid 90s, patient is still requiring norepinephrine at 0.12 mcg/kg/m. Remains on her day #5 of Remdesivir, she is also on Decadron, eliquis, and multivitamins, patient is also on Zosyn for empiric treatment of superimposed bacterial infection/pneumonia considering that her pro calcitonin level was quite high on admission. Overall clinically the patient is improving but very slowly. WBC count is 7.5 hemoglobin is 10.7. E lectrodes are normal renal profile is basically back to normal her creatinine is now 0.83. Objective - Vital Signs Vital signs: Vital Signs Temp 98.0 F 01/11/22 08:00 Pulse 63 01/11/22 11:00 Resp 14 01/11/22 11:00 BP 102/57 01/11/22 11:00 Pulse Ox 92 L 01/11/22 11:00 FiO2 60 01/11/22 08:00 Intake & Output 01/10/22 01/11/22 01/11/22 18:59 06:59 18:59 Intake Total 743.44 573.110 237.556 Output Total 710 770 250 Balance 33.44 -196.890 -12.444 Weight 68.723 kg Intake: IV 518 356 190 0.9 Normal Saline @ 10mL/ 110 120 50 hr KVO 0.9NS Pressure Bag 33 36 15 Dextrose 5% in Water 1, 275 200 25 000 ml @ 25 mls/hr IV . Q24H [facility] with Sodium Bicarb (1 Meq/ml) 150 ml Rx#:[id number] Piperacillin-Tazobactam 3 100 100 .375 gm In Sodium Chloride 0.9% 100 ml @ 25 mls/hr IVPB Q8HR [facility] Rx# :[id number] Intake, IV Titration 225.44 217.110 47.556 Amount Norepinephrine 8 mg In 225.44 217.110 47.556 Sodium Chloride 0.9% 250 ml @ 0.03 MCG/KG/MIN 3. 947 mls/hr IV .Q24H [facility] Rx#:[id number] Output: Urine 710 770 250 Other: Voiding Method Indwelling Catheter Indwelling Catheter Indwelling Catheter ABP, PAP, CO, CI - Last Documented Arterial Blood Pressure 109/50 - Exam Physical Exam: Revealed 76-year-old female in no distress, on airvo, frail looking, chronically ill. Head: Atraumatic, normocephalic. HEENT:[Neck is supple.] [No neck masses.] [No thyromegaly.] [No JVD.] Dry mucous membranes. Chest: [Symmetrical chest expansion crackles at the bases bilaterally. Cardiac Exam: [Normal S1 and S2, no S3 gallop, no murmur.] Abdomen: [Soft, nontender, no megaly, no rebound, no guarding, normal bowel sounds.] Extremities: [No clubbing, no edema, no cyanosis.] Neurological Exam: [No focal neurologic deficit.] Alert oriented 3, she seems to be generally weak. Psychiatric: Normal mood, affect and normal mental status examination. Skin: Lumbosacral's area ecchymosis from recent fall. Musculoskeletal: No deformities and no limitation of range of motion, however the patient is generally weak. - Labs CBC & Chem 7: 01/11/22 03:57 01/11/22 03:57 Labs: Abnormal Lab Results - Last 24 Hours (Table) 01/11/22 01/11/22 Range/Units 03:57 03:57 Hgb 10.7 L (11.4-16.0) gm/dL Hct 33.3 L (34.0-46.0) % Lymphocytes # 0.7 L (1.0-4.8) k/uL BUN 45 H (7-17) mg/dL Glucose 133 H (74-99) mg/dL Calcium 7.3 L (8.4-10.2) mg/dL AST 37 H (14-36) U/L Total Protein 4.2 L (6.3-8.2) g/dL Albumin 1.9 L (3.5-5.0) g/dL Microbiology - Last 24 Hours (Table) 01/07/22 13:56 Blood Culture - Preliminary Blood No Growth after 72 hours 01/07/22 13:56 Blood Culture - Preliminary Blood No Growth after 72 hours Assessment and Plan Assessment: Impression: Acute hypoxic respiratory failure secondary to acute COVID-19 pneumonia, underlying bacterial pneumonia is very likely considering her chest x-ray findings and considering elevated pro calcitonin level. Possible interstitial lung disease/pulmonary fibrosis, likely contributing to her acute hypoxic respiratory failure Hypotension, secondary to sepsis/septic shock, and I believe there is significant component of dehydration/hypovolemia, this implies that the patient had septic and hypovolemic shock History of underlying COPD does not seem to be active at this point. But likely contributing to her hypoxic respiratory failure History of hypothyroidism History of generalized anxiety disorder Elevated d-dimer but negative venous Doppler for DVT, cannot perform CT angiogram of the chest mostly because of her renal functioning Acute dehydration Acute kidney injury secondary to dehydration Paroxysmal atrial fibrillation Recommendation: Continue to monitor in the ICU, continue airvo and titrate FiO2 accordingly Continue present supportive care measures Continue eliquis Titrate the norepinephrine down as tolerated and maintain a mean arterial pressure above 60 Continue Zosyn, empirically Continue Remdesivir. Last day is today. Continue COVID-19 cocktail. Continue Decadron and continue bronchodilators Patient is critically ill, critical care time is over 30 minutes Time with Patient: Greater than 30
--- NOTE | 2022-01-11 11:59 | PN ---
PROGRESS NOTE SUBJECTIVE: Samantha is a 76-year-old lady who is admitted to ICU with respiratory failure secondary to COVID pneumonia. She is looking much better now. Her oxygen needs are coming down. Still requiring a small dose of Levophed for hypotension. She is on Eliquis and heart rate is well controlled. OBJECTIVE: VITAL SIGNS: Heart rate is 60 beats per minute, blood pressure is 102/57, and respiratory rate is 18. CHEST: Reveals good air entry bilaterally. There are bilateral wheezes in the lungs. HEART: Reveals first and second heart sounds, irregular rhythm, systolic murmur at the left lower sternal border. ABDOMEN: Soft. EXTREMITIES: Did not reveal any edema. Peripheral pulses are felt. LABS: Show that the hemoglobin is 10.7, potassium is 3.7, creatinine is 0.8. ASSESSMENT: 1. Respiratory failure secondary to COVID pneumonia. 2. Persistent atrial fibrillation with controlled ventricular rate. PLAN: She will continue current medications. MMODL / IJN: [id number] /
[2022-01-11] MEDS: TIOTROPIUM 2.5 MCG INHALER INHALATION SCH (14:52)
[2022-01-11] MEDS: ALPRAZolam 0.25 MG TAB PO PRN (15:56)
[2022-01-11] MEDS: REMDESIVIR 100 MG in SODIUM CHLORIDE 0.9% 250 ML IVPB SCH (17:31)
[2022-01-11] MEDS: risperiDONE 2 MG TAB PO SCH (20:19)
[2022-01-12] MEDS: SODIUM CHLORIDE 0.9% 1,000 ML IV SCH (05:30)
[2022-01-12 06:10] LABS: Basophils # (A) 0.1 k/uL (0-0.2); Basophils % (A) 1 %; Eosinophils % (A) 0 %; HCT 33.6 % (34.0-46.0); HGB 10.8 gm/dL (11.4-16.0); Hypochromasia Slight; Lymphocytes # (A) 0.9 k/uL (1.0-4.8); Lymphocytes % (A) 10 %; MCH 27.5 pg (25.0-35.0); MCHC 32.1 g/dL (31.0-37.0); MCV 85.8 fL (80.0-100.0); Mean Platelet Volume 9.1; Monocytes # (A) 0.7 k/uL (0-1.0); Monocytes % (A) 8 %; Neutrophils # (A) 6.9 k/uL (1.3-7.7); Neutrophils % (A) 77 %; Platelet Count 324 k/uL (150-450); RBC 3.92 m/uL (3.80-5.40); RDW 14.8 % (11.5-15.5)
[2022-01-12] MEDS: LEVOTHYROXINE 75 MCG TAB PO SCH (06:17)
[2022-01-12 06:24] LABS: African American GFR (CKD) >90 (>60 ml/min/1.73 sqM); Anion Gap 1 mmol/L; Blood Urea Nitrogen 27 mg/dL (7-17); Calcium 7.1 mg/dL (8.4-10.2); Carbon Dioxide 30 mmol/L (22-30); Chloride 106 mmol/L (98-107); Glucose 105 mg/dL (74-99); Non-African American GFR(CKD) 88 (>60 ml/min/1.73 sqM); Potassium 3.6 mmol/L (3.5-5.1); Sodium 137 mmol/L (137-145)
[2022-01-12] MEDS: POTASSIUM CHLORIDE 10 MEQ in WATER FOR INJECTION 1 100ML.BAG IVPB SCH ×2 (06:42→09:15)
[2022-01-12] MEDS ORDERED: FUROSEMIDE 10 MG/ML 4 ML VIAL IV STA (07:01)
[2022-01-12] MEDS: ALBUTEROL HFA INHALER INHALATION SCH ×4 (07:33→19:55)
[2022-01-12] MEDS: SYMBICORT 160-4.5 MCG INHALER INHALATION SCH ×2 (07:34→19:55)
--- NOTE | 2022-01-12 07:35 | XR ---
EXAMINATION TYPE: XR chest 1V portable DATE OF EXAM: 01/12/2022 6:17 AM COMPARISON: Chest radiographs from 01/10/2022 TECHNIQUE: XR chest 1V portable Portable AP radiograph of the chest. CLINICAL INDICATION:Female, 76 years old with history of covid; FINDINGS: Lungs/Pleura: Interval increase in multifocal airspace opacities. No evidence of pneumothorax or pleu ral effusion. Pulmonary vascularity: Unremarkable. Heart/mediastinum: Cardiomediastinal silhouette is unremarkable. Musculoskeletal: No acute osseous pathology. IMPRESSION: Worsening of multifocal airspace opacities.
[2022-01-12] MEDS: TIOTROPIUM 2.5 MCG INHALER INHALATION SCH (07:44)
[2022-01-12] MEDS: APIXABAN 5 MG TAB PO SCH ×2 (09:14→20:04)
[2022-01-12] MEDS: PIPERACILLIN-TAZOBACTAM 3.375 GM in SODIUM CHLORIDE 0.9% 100 ML IVPB SCH ×2 (09:14→16:15)
[2022-01-12] MEDS: ACETAMINOPHEN TAB 325 MG TAB PO PRN (09:14)
[2022-01-12] MEDS: ZINC SULFATE 220 MG CAP PO SCH (09:15)
[2022-01-12] MEDS: CHOLECALCIFEROL 25 MCG (1000 IU) TABLET PO SCH (09:15)
[2022-01-12] MEDS: ALPRAZolam 0.25 MG TAB PO PRN ×2 (09:15→22:08)
[2022-01-12] MEDS: CITALOPRAM HYDROBROMIDE 10 MG TAB PO SCH (09:15)
[2022-01-12] MEDS: DEXAMETHASONE SOD PHOSPHATE 10 MG/ML 1 ML VIAL IVP SCH (09:20)
[2022-01-12] MEDS: PANTOPRAZOLE 40 MG/10 ML VIAL IV SCH (09:21)
[2022-01-12] MEDS: ASCORBIC ACID 500 MG TAB PO SCH ×2 (09:21→20:04)
[2022-01-12] MEDS: NOREPINEPHRINE 8 MG in SODIUM CHLORIDE 0.9% 250 ML IV SCH (10:21)
--- NOTE | 2022-01-12 11:47 | P.PN ---
Subjective Progress Note Date: 01/12/22 Principal diagnosis: Acute hypoxic resource failure secondary to COVID-19 pneumonia This is a 76-year-old female who is not a great historian, her daughter is at bedside, patient is known to have history of hypothyroidism, COPD, history generalized anxiety disorder, patient has been weak for the last few days. According to the daughter, patient fell 4 days ago, and has been complaining of pain to her buttocks. Patient also had some intermittent cough, shortness of breath, and according to the daughter the patient has not been taking her medications including her thyroid medicine and her Combivent for COPD. Patient is a heavy smoker, she smoked 2 packs a day for many years. Does not use oxygen at home. Workup in the ER included a CBC which showed leukocytosis. Elevated d-dimer of 3.94. Abnormal renal profile with a BUN of 76 creatinine of 1.92 and low sodium of 129, elevated BNP level of 2580, normal troponin, and normal liver enzymes. Patient was also noted to have positive PCR for COVID-19, chest x-ray showed multifocal reticular markings and multifocal atypical infiltrates. Possible underlying pulmonary fibrosis. No old x-ray for comparison. Patient was also noted to be relatively hypotensive requiring fluid boluses with slight improvement of the blood pressure. I saw this patient in the ER, and I recommended admitting the patient to the ICU. In the meantime I ordered a high- resolution CT of the chest, started the patient on Remdesivir, patient is on 6 L nasal cannula, recommended fluid boluses, empiric antibiotics, pro-calcitonin level is pending, and order the COVID-19 cocktail. Reevaluated today on 01/08/22, patient remains in the ICU, her condition became a bit worse overnight, patient had to be placed on BiPAP, and she is now on BiPAP FiO2 of 50% IPAP 16 and EPAP of 6 I was able to cut down her FiO2 to 45% and her IPAP 10-14 EPAP remains at 6. Patient is requiring norepinephrine for low blood pressure, hence this is clearly a presentation of septic shock. Patient is requiring norepinephrine at 0.38 mcg/kg/m, her IV fluid went down to KVO after she received 4 L of fluids last night, felt that the patient was over hydrated, and her urine output picked up last night and I was notified about her worsening pulmonary status recommended Lasix dose earlier today with good response to the Lasix. Her creatinine is improving when down from 1.92-1.70 today. Bicarb remains low at 14 on him recommending a bicarb drip. Today I was able to establish a triple-lumen catheter and arterial line and the patient, her pro calcitonin was noted to be high at 5.47, patient was initially placed on vancomycin and Zosyn, blood cultures are negative so far, I'm recommending that we continue Zosyn, discontinue vancomycin, and recommending infectious disease consultation. I'm also recommending a CT of the lumbosacral spine since the patient has significant area of ecchymosis in the buttock area and low back. Apparently she fell 4 days ago. And she had significant amount of pain. The ER physician ordered a thoracic spine CT but did not address the lumbar spine area which seems to be the area of pain and the area of trauma. Patient remains on the COVID-19 cocktail. And I started the patient yesterday on Remdesivir. Since her symptoms were recent within the therapeutic window. WBC count is 20.2 hemoglobin is 12.5. Electrodes are normal except elevated potassium and that will improve with bicarbonate drip. Renal profile as noted earlier. Pro- calcitonin level is very high at 5.47 Reevaluated today on , patient remains in the ICU, remains on BiPAP, FiO2 40%, IPAP of 14 EPAP of 6. Remains on small dose of norepinephrine at 0.1 mcg/kg/m, patient remains on bicarb drip, I cut it down to 25 mL per hour today. Yesterday she had ultrasound of the gallbladder showing mostly cholelithiasis but no cholecystitis. Patient had negative CT of the lumbar spine. Remains on Zosyn empirically since her pro calcitonin level was quite high. She has better urine output, 35-50 mL per hour. Planning today to change from BiPAP possibly to airvo. Planning to gently diurese the patient, her chest x-ray is not mera wing much of a change in her bilateral interstitial infiltrates, and again I strongly suspect ongoing interstitial lung disease. WBC count 14.8 hemoglobin is 10.6, PTT is 73.7, patient remains on heparin. Basic metabolic profile is normal, BUN is 63 and creatinine 1.41. Reevaluated today on 01/10/22, patient remains in the ICU, remains on BiPAP, she is on 40% FiO2 IPAP of 12 EPAP of 5 Reed seems to be comfortable, and not in distress. Feeling better. Remains on heparin and she remains on norepinephrine at 0.1 mcg/kg/m. Today I am changes heparin to eliquis which she took on outpatient basis. Chest x-ray continues to show interstitial lung disease and interstitial infiltrates. Clinically the patient is feeling better. Her renal functioning is almost back to normal. Continues to have good urine output with diuresis. BUN is down to 60 creatinine is down to 1.12 patient remains on Remdesivir she remains on the COVID-19 cocktail. Reevaluated today on 01/11/22 patient remains in the ICU, she is now on airvo S 50% FiO2 and 60 L flow, saturating in the mid 90s, patient is still requiring norepinephrine at 0.12 mcg/kg/m. Remains on her day #5 of Remdesivir, she is also on Decadron, eliquis, and multivitamins, patient is also on Zosyn for empiric treatment of superimposed bacterial infection/pneumonia considering that her pro calcitonin level was quite high on admission. Overall clinically the patient is improving but very slowly. WBC count is 7.5 hemoglobin is 10.7. E lectrodes are normal renal profile is basically back to normal her creatinine is now 0.83. Reevaluated today on 02/08/22, patient remains in the ICU, remains relatively critically ill, patient is still requiring norepinephrine at 0.08 mcg/kg/m, patient remains on airvo at 55 L and 55% FiO2, chest x-ray is showing some worsening today with interstitial infiltrates, possible interstitial edema, hen ce I recommended a dose of Lasix 40 mg IV push, and the patient had significant urine output after the Lasix given. She remains on Decadron, she is also on eliquis, and she is on Zosyn. Her echocardiogram showed good LV function, however I am planning to keep the patient on the dry side considering her underlying COVID-19 pneumonia and her underlying interstitial lung disease. WBC count is 9 hemoglobin is 10.8 electrolytes are normal renal profile is normal, blood cultures remain negative. Pro-calcitonin level on admission was elevated. Objective - Vital Signs Vital signs: Vital Signs Temp 98.5 F 01/12/22 08:00 Pulse 82 01/12/22 09:00 Resp 16 01/12/22 09:00 BP 103/59 01/12/22 09:00 Pulse Ox 93 L 01/12/22 09:00 FiO2 50 01/12/22 11:25 Intake & Output 01/11/22 01/12/22 01/12/22 18:59 06:59 18:59 Intake Total 568.367 353.240 318.283 Output Total 327 499 6973 Balance -131.633 -356.760 -1756.717 Weight 68.723 kg 71 kg Intake: IV 345 193 303 0.9 Normal Saline @ 10mL/ 90 60 hr KVO 0.9NS Pressure Bag 30 33 3 Dextrose 5% in Water 1, 25 000 ml @ 25 mls/hr IV . Q24H [facility] with Sodium Bicarb (1 Meq/ml) 150 ml Rx#:[id number] Piperacillin-Tazobactam 3 200 100 100 .375 gm In Sodium Chloride 0.9% 100 ml @ 25 mls/hr IVPB Q8HR [facility] Rx# :[id number] Potassium Chloride 10 meq 200 In Water For Injection 1 100ml.bag @ 100 mls/hr IVPB Q1H [facility] Rx#: [id number] Intake, IV Titration 123.367 160.240 15.283 Amount Norepinephrine 8 mg In 123.367 160.240 15.283 Sodium Chloride 0.9% 250 ml @ 0.03 MCG/KG/MIN 3. 947 mls/hr IV .Q24H [facility] Rx#:[id number] Oral 100 Output: Urine 691 650 2539 Other: Voiding Method Indwelling Catheter Indwelling Catheter Indwelling Catheter # Bowel Movements 1 ABP, PAP, CO, CI - Last Documented Arterial Blood Pressure 119/60 - Exam Physical Exam: Revealed 76-year-old female in no distress, frail looking, chronically ill. On airvo Head: Atraumatic, normocephalic. HEENT:[Neck is supple.] [No neck masses.] [No thyromegaly.] [No JVD.] Dry mucous membranes. Chest: [Symmetrical chest expansion, diffuse rhonchi and crackles bilaterally. Cardiac Exam: [Normal S1 and S2, no S3 gallop, no murmur.] Abdomen: [Soft, nontender, no megaly, no rebound, no guarding, normal bowel sounds.] Extremities: [No clubbing, no edema, no cyanosis.] Neurological Exam: [No focal neurologic deficit.] Alert oriented 3, she seems to be generally weak. Psychiatric: Normal mood, affect and normal mental status examination. Skin: Lumbosacral's area ecchymosis from recent fall. Musculoskeletal: No deformities and no limitation of range of motion - Labs CBC & Chem 7: 01/12/22 05:30 01/12/22 05:30 Labs: Abnormal Lab Results - Last 24 Hours (Table) 01/12/22 01/12/22 Range/Units 05:30 05:30 Hgb 10.8 L (11.4-16.0) gm/dL Hct 33.6 L (34.0-46.0) % Lymphocytes # 0.9 L (1.0-4.8) k/uL BUN 27 H (7-17) mg/dL Glucose 105 H (74-99) mg/dL Calcium 7.1 L (8.4-10.2) mg/dL Microbiology - Last 24 Hours (Table) 01/07/22 13:56 Blood Culture - Preliminary Blood No Growth after 96 hours 01/07/22 13:56 Blood Culture - Preliminary Blood No Growth after 96 hours Assessment and Plan Assessment: Impression: Acute hypoxic respiratory failure secondary to acute COVID-19 pneumonia, underlying bacterial pneumonia is very likely considering her chest x-ray findings and considering elevated pro calcitonin level. Possible interstitial lung disease/pulmonary fibrosis, likely contributing to her acute hypoxic respiratory failure Hypotension, secondary to sepsis/septic shock, and I believe there is significant component of dehydration/hypovolemia, this implies that the patient had septic and hypovolemic shock History of underlying COPD does not seem to be active at this point. But likely contributing to her hypoxic respiratory failure History of hypothyroidism History of generalized anxiety disorder Elevated d-dimer but negative venous Doppler for DVT, cannot perform CT angiogram of the chest mostly because of her renal functioning Acute dehydration Acute kidney injury secondary to dehydration Paroxysmal atrial fibrillation Recommendation: Continue to monitor in the ICU, continue airvo and titrate FiO2 accordingly Continue present supportive care measures Continue eliquis Continue to titrate and possibly discontinue norepinephrine presently at 0.08. Continue Zosyn, empirically Patient finished a full course of Remdesivir Continue COVID-19 cocktail. Continue Decadron and bronchodilators Patient is critically ill, critical care time is over 30 minutes Time with Patient: Greater than 30
--- NOTE | 2022-01-12 14:23 | P.PN ---
Subjective Progress Note Date: 01/12/22 Samantha Brown, is a 76-year-old female who presented to [facility] emergency room with a chief complaint of generalized weakness, patient's daughter reported in the emergency room that her mother had a fall 4 days prior to presentation She was evaluated in the emergency room vital examination on presentation revealed Laboratory data revealed a white blood count of 14.4 hemoglobin 12.2 platelet count 476 INR 1.2 d-dimer 3.94 sodium 129 potassium 5.1 chloride 99 CO2 23 BUN 76 creatinine 1.92 lactic acid 1.7 Corps on a virus PCR was positive Testing in the emergency room revealed chest x-ray done in emergency room revealed small bilateral pleural effusions and multifocal areas of increased reticular markings, EKG revealed atrial fibrillation with a heart rate of 86 Patient was admitted to medical floor for further evaluation and treatment. Past medical history is significant for history of hypertension, history of hyperlipidemia, history of hypothyroidism, and history of tobacco use patient smokes 2 packs per day On 01/08/2022 patient was seen and examined in the ICU she is alert responsive in mild distress due to shortness of breath, she was started on BiPAP during the night, she is maintained on norepinephrine for pressure support, she is also maintained on IV antibiotic Zosyn, input from cardiology and pulmonary review, patient's daughter Pily contacted over the phone and all questions answered to her satisfaction. On 01/09/2022 patient remains in the intensive care unit slightly improved. Patient remains on BiPAP. Creatinine improving to 1.41 bun 63. Patient remains on IV heparin. Patient also remains on sodium bicarb current vital signs heart rate 88, respiratory rate 19, blood pressure 108/51 patient satting 93% on BiPAP 40% FiO2. On 01/10/2022 patient was seen and examined in the ICU she is alert responsive in no apparent distress she is maintained on BiPAP, she is stating that her shortness of breath is improving she denies any chest pain there is no nausea or vomiting no abdominal pain no diarrhea and no urinary symptoms, however white blood count is 11 hemoglobin 10.8, BUN 60 creatinine 1.12 On 01/11/2022 patient was seen and examined in the ICU she is alert responsive in no apparent distress BiPAP was discontinued and patient was started on Airvo high flow oxygen she is still maintained on levophed for pressure support and this is being weaned down gradually. White blood count is down today to 7.5 BUN down to 45 creatinine 0.83 patient denies any chest pain or shortness of breath is improving, she is receiving IV antibiotic Zosyn she is also receiving Remdesevir for Covid-19 On 01/12/22, patient was seen and examined in the ICU, she is alert and oriented x 3, patient remains on airvo 55% FiO2, chest x-ray is showing some worsening today with interstitial infiltrates, possible interstitial edema. She remains on Decadron, she is also on eliquis, and she is on Zosyn. patient is still requiring norepinephrine Objective - Vital Signs Vital signs: Vital Signs Temp 97.7 F 01/12/22 04:00 Pulse 68 01/12/22 07:00 Resp 13 01/12/22 07:00 BP 102/65 01/12/22 04:00 Pulse Ox 92 L 01/12/22 07:00 FiO2 55 01/12/22 07:34 Intake & Output 01/11/22 01/12/22 01/12/22 18:59 06:59 18:59 Intake Total 568.367 353.240 110.829 Output Total 700 710 75 Balance -131.633 -356.760 35.829 Weight 68.723 kg 71 kg Intake: IV 345 193 103 0.9 Normal Saline @ 10mL/ 90 60 hr KVO 0.9NS Pressure Bag 30 33 3 Dextrose 5% in Water 1, 25 000 ml @ 25 mls/hr IV . Q24H [facility] with Sodium Bicarb (1 Meq/ml) 150 ml Rx#:[id number] Piperacillin-Tazobactam 3 200 100 .375 gm In Sodium Chloride 0.9% 100 ml @ 25 mls/hr IVPB Q8HR [facility] Rx# :[id number] Potassium Chloride 10 meq 100 In Water For Injection 1 100ml.bag @ 100 mls/hr IVPB Q1H [facility] Rx#: [id number] Intake, IV Titration 123.367 160.240 7.829 Amount Norepinephrine 8 mg In 123.367 160.240 7.829 Sodium Chloride 0.9% 250 ml @ 0.03 MCG/KG/MIN 3. 947 mls/hr IV .Q24H [facility] Rx#:[id number] Oral 100 Output: Urine 700 710 75 Other: Voiding Method Indwelling Catheter Indwelling Catheter # Bowel Movements 1 ABP, PAP, CO, CI - Last Documented Arterial Blood Pressure 115/51 - Exam In general patient is alert responsive maintained on BiPAP HEENT head normocephalic and atraumatic Neck is supple no JVD no goiter no lymphadenopathy no carotid bruit Chest examination reveals a scattered crackles bilaterally with mild wheezing Cardiac exam reveals regular heart sounds S1 and S2 no gallops no murmurs Abdomen is soft nontender no organomegaly with normal bowel sounds Extremity exam reveals no edema no cyanosis or clubbing, poor pulses peripherally Neurological examination reveals no gross focal deficits - Labs CBC & Chem 7: 01/12/22 05:30 01/12/22 05:30 Labs: Abnormal Lab Results - Last 24 Hours (Table) 01/12/22 01/12/22 Range/Units 05:30 05:30 Hgb 10.8 L (11.4-16.0) gm/dL Hct 33.6 L (34.0-46.0) % Lymphocytes # 0.9 L (1.0-4.8) k/uL BUN 27 H (7-17) mg/dL Glucose 105 H (74-99) mg/dL Calcium 7.1 L (8.4-10.2) mg/dL Microbiology - Last 24 Hours (Table) 01/07/22 13:56 Blood Culture - Preliminary Blood No Growth after 96 hours 01/07/22 13:56 Blood Culture - Preliminary Blood No Growth after 96 hours Assessment and Plan Plan: Acute hypoxic respiratory failure Acute coronary 19 pneumonia Underlying history of chronic obstructive pulmonary disease Sepsis as evidenced by leukocytosis, tachycardia, mild elevation in lactic acid and hypotension Elevated d-dimer Acute kidney injury possibly related to dehydration and prerenal azotemia, will monitor kidney function Underlying history of hypertension Underlying history of hypothyroidism Chronic tobacco use patient smokes up to 2 packs per day At this time patient is admitted to intensive care unit Pulmonary, vascular surgery, and cardiology consultation requested Patient started on IV antibiotics, IV a Remdesevir, IV steroids and inhaled bronchodilators Patient was also started on IV heparin Medication and labs reviewed will follow closely Prognosis is guarded due to severity of illness
[2022-01-12] MEDS: risperiDONE 2 MG TAB PO SCH (20:05)
--- NOTE | 2022-01-12 23:42 | P.PN ---
Subjective Progress Note Date: 01/12/22 Principal diagnosis: Sacral wound Patient is a 76-year old female with multiple comorbidities including COPD current 2 pack smoker hypothyroidism presented to the hospital with weakness patient also have a fall landed on her gluteal area and has developed a deep tissue injury to the sacral area and tested positive for COVID-19. On today's evaluation that is 01/12/2022 the patient denies any fever or any chills, patient is breathing comfortably and is down to 50% FiO2, the patient denies any chest pain, abdominal pain or any worsening pain to the sacral wound area Objective - Vital Signs Vital signs: Vital Signs Temp 98.3 F 01/12/22 12:00 Pulse 51 L 01/12/22 12:00 Resp 22 01/12/22 12:00 BP 103/59 01/12/22 09:00 Pulse Ox 95 01/12/22 12:00 FiO2 50 01/12/22 12:00 Intake & Output 01/11/22 01/12/22 01/12/22 18:59 06:59 18:59 Intake Total 568.367 353.240 318.283 Output Total 437 272 4320 Balance -131.633 -356.760 -2506.717 Weight 68.723 kg 71 kg Intake: IV 345 193 303 0.9 Normal Saline @ 10mL/ 90 60 hr KVO 0.9NS Pressure Bag 30 33 3 Dextrose 5% in Water 1, 25 000 ml @ 25 mls/hr IV . Q24H [facility] with Sodium Bicarb (1 Meq/ml) 150 ml Rx#:[id number] Piperacillin-Tazobactam 3 200 100 100 .375 gm In Sodium Chloride 0.9% 100 ml @ 25 mls/hr IVPB Q8HR [facility] Rx# :[id number] Potassium Chloride 10 meq 200 In Water For Injection 1 100ml.bag @ 100 mls/hr IVPB Q1H [facility] Rx#: [id number] Intake, IV Titration 123.367 160.240 15.283 Amount Norepinephrine 8 mg In 123.367 160.240 15.283 Sodium Chloride 0.9% 250 ml @ 0.03 MCG/KG/MIN 3. 947 mls/hr IV .Q24H [facility] Rx#:[id number] Oral 100 Output: Urine 816 192 8707 Other: Voiding Method Indwelling Catheter Indwelling Catheter Indwelling Catheter # Bowel Movements 1 ABP, PAP, CO, CI - Last Documented Arterial Blood Pressure 98/44 - Exam GENERAL DESCRIPTION: An elderly female lying in bed in no distress RESPIRATORY SYSTEM: Unlabored breathing , decreased breath sounds at bases HEART: S1 S2 regular rate and rhythm , ABDOMEN: Soft , no tenderness EXTREMITIES: No edema feet - Labs CBC & Chem 7: 01/12/22 05:30 01/12/22 05:30 Labs: Abnormal Lab Results - Last 24 Hours (Table) 01/12/22 01/12/22 Range/Units 05:30 05:30 Hgb 10.8 L (11.4-16.0) gm/dL Hct 33.6 L (34.0-46.0) % Lymphocytes # 0.9 L (1.0-4.8) k/uL BUN 27 H (7-17) mg/dL Glucose 105 H (74-99) mg/dL Calcium 7.1 L (8.4-10.2) mg/dL Microbiology - Last 24 Hours (Table) 01/07/22 13:56 Blood Culture - Preliminary Blood No Growth after 96 hours 01/07/22 13:56 Blood Culture - Preliminary Blood No Growth after 96 hours Assessment and Plan (1) Pressure ulcer of sacral region, stage 2 Current Visit: Yes Status: Acute Code(s): L89.152 - PRESSURE ULCER OF SACRAL REGION, STAGE 2 SNOMED Code(s): 95430993151242 Plan: 1patient with acute respiratory failure which is multifactorial concerning for possible pneumonia in this patient also tested positive for COVID however did have elevated procalcitonin superadded bacterial pneumonia not entirely excluded, patient has some clinical improvement and will continue with the Zosyn Heparin dexamethasone zinc and ascorbic acid. 2-patient with a deep tissue injury to the sacral area and likely stage II sacral pressure ulcer with no cellulitis continued local wound care as ordered keep the area dry and of the pressure and frequent change of position
[2022-01-13] MEDS: PIPERACILLIN-TAZOBACTAM 3.375 GM in SODIUM CHLORIDE 0.9% 100 ML IVPB SCH ×4 (00:05→23:46)
--- NOTE | 2022-01-13 01:37 | PN ---
PROGRESS NOTE SUBJECTIVE: A 76-year-old lady who is admitted to ICU with respiratory failure secondary to COVID pneumonia. She remains in atrial fibrillation with controlled ventricular rate, somewhat hypotensive, and at times confused. OBJECTIVE: GENERAL: On exam, not in respiratory distress. VITAL SIGNS: Heart rate is 60 beats per minute, blood pressure is 87/40, respiratory rate 18. CHEST: Exam reveals bilateral rhonchi. HEART: Exam reveals first and second heart sounds. No gallop. EXTREMITIES: Exam of extremities did not reveal any edema. The patient is currently on Eliquis 5 b.i.d. and Levophed. ASSESSMENT: 1. Atrial fibrillation with controlled ventricular rate. 2. COVID pneumonia. 3. Hypotension. PLAN: Continue current medications. MMODL / IJN: [id number] /
[2022-01-13] MEDS: SODIUM CHLORIDE 0.9% 1,000 ML IV SCH (04:30)
[2022-01-13 05:49] LABS: Basophils % (A) 0 %; Eosinophils % (A) 0 %; HCT 35.3 % (34.0-46.0); HGB 11.3 gm/dL (11.4-16.0); Hypochromasia Slight; Lymphocytes # (A) 1.1 k/uL (1.0-4.8); Lymphocytes % (A) 9 %; MCH 27.1 pg (25.0-35.0); MCHC 31.9 g/dL (31.0-37.0); Mean Platelet Volume 9.1; Monocytes # (A) 0.7 k/uL (0-1.0); Monocytes % (A) 6 %; Neutrophils # (A) 9.3 k/uL (1.3-7.7); Neutrophils % (A) 82 %; Platelet Count 417 k/uL (150-450); RBC 4.15 m/uL (3.80-5.40); RDW 14.8 % (11.5-15.5); WBC 11.3 k/uL (3.8-10.6)
[2022-01-13 06:03] LABS: ALT 15 U/L (4-34); AST 33 U/L (14-36); African American GFR (CKD) >90 (>60 ml/min/1.73 sqM); Albumin 2.1 g/dL (3.5-5.0); Alkaline Phosphatase 60 U/L (38-126); Anion Gap 2 mmol/L; Blood Urea Nitrogen 23 mg/dL (7-17); Calcium 7.2 mg/dL (8.4-10.2); Carbon Dioxide 33 mmol/L (22-30); Chloride 103 mmol/L (98-107); Glucose 108 mg/dL (74-99); Non-African American GFR(CKD) 86 (>60 ml/min/1.73 sqM); Potassium 3.7 mmol/L (3.5-5.1); Sodium 138 mmol/L (137-145); Total Bilirubin 0.7 mg/dL (0.2-1.3); Total Protein 4.4 g/dL (6.3-8.2)
[2022-01-13] MEDS: LEVOTHYROXINE 88 MCG TAB PO SCH (06:56)
[2022-01-13] MEDS: POTASSIUM CHLORIDE 10 MEQ in WATER FOR INJECTION 1 100ML.BAG IVPB SCH ×2 (06:57→08:17)
--- NOTE | 2022-01-13 07:11 | XR ---
EXAMINATION TYPE: XR chest 1V portable DATE OF EXAM: 01/13/2022 5:31 AM COMPARISON: Chest radiograph from one day prior. TECHNIQUE: XR chest 1V portable Portable AP radiograph of the chest. CLINICAL INDICATION:Female, 76 years old with history of Shortness of breath; FINDINGS: Lungs/Pleura: Similar multifocal airspace opacities. No evidence of pneumothorax or pleural effusion. Pulmonary vascularity: Unremarkable. Heart/mediastinum: Cardiomediastinal silhouette is unremarkable. Musculoskeletal: No acute osseous pathology. IMPRESSION: Similar multifocal airspace opacities.
[2022-01-13] MEDS: PANTOPRAZOLE 40 MG/10 ML VIAL IV SCH (08:15)
[2022-01-13] MEDS: CHOLECALCIFEROL 25 MCG (1000 IU) TABLET PO SCH (08:16)
[2022-01-13] MEDS: DEXAMETHASONE SOD PHOSPHATE 10 MG/ML 1 ML VIAL IVP SCH (08:16)
[2022-01-13] MEDS: APIXABAN 5 MG TAB PO SCH ×2 (08:17→19:58)
[2022-01-13] MEDS: ZINC SULFATE 220 MG CAP PO SCH (08:17)
[2022-01-13] MEDS: ASCORBIC ACID 500 MG TAB PO SCH ×2 (08:17→19:59)
[2022-01-13] MEDS: SYMBICORT 160-4.5 MCG INHALER INHALATION SCH ×2 (08:47→19:45)
[2022-01-13] MEDS: TIOTROPIUM 2.5 MCG INHALER INHALATION SCH (08:47)
[2022-01-13] MEDS: ALBUTEROL HFA INHALER INHALATION SCH ×4 (08:47→19:45)
[2022-01-13] MEDS: CITALOPRAM HYDROBROMIDE 10 MG TAB PO SCH (09:04)
[2022-01-13] MEDS: NOREPINEPHRINE 8 MG in SODIUM CHLORIDE 0.9% 250 ML IV SCH (09:19)
--- NOTE | 2022-01-13 10:59 | P.PN ---
Subjective Progress Note Date: 01/13/22 Samantha Brown, is a 76-year-old female who presented to [facility] emergency room with a chief complaint of generalized weakness, patient's daughter reported in the emergency room that her mother had a fall 4 days prior to presentation She was evaluated in the emergency room vital examination on presentation revealed Laboratory data revealed a white blood count of 14.4 hemoglobin 12.2 platelet count 476 INR 1.2 d-dimer 3.94 sodium 129 potassium 5.1 chloride 99 CO2 23 BUN 76 creatinine 1.92 lactic acid 1.7 Corps on a virus PCR was positive Testing in the emergency room revealed chest x-ray done in emergency room revealed small bilateral pleural effusions and multifocal areas of increased reticular markings, EKG revealed atrial fibrillation with a heart rate of 86 Patient was admitted to medical floor for further evaluation and treatment. Past medical history is significant for history of hypertension, history of hyperlipidemia, history of hypothyroidism, and history of tobacco use patient smokes 2 packs per day On 01/08/2022 patient was seen and examined in the ICU she is alert responsive in mild distress due to shortness of breath, she was started on BiPAP during the night, she is maintained on norepinephrine for pressure support, she is also maintained on IV antibiotic Zosyn, input from cardiology and pulmonary review, patient's daughter Pily contacted over the phone and all questions answered to her satisfaction. On 01/09/2022 patient remains in the intensive care unit slightly improved. Patient remains on BiPAP. Creatinine improving to 1.41 bun 63. Patient remains on IV heparin. Patient also remains on sodium bicarb current vital signs heart rate 88, respiratory rate 19, blood pressure 108/51 patient satting 93% on BiPAP 40% FiO2. On 01/10/2022 patient was seen and examined in the ICU she is alert responsive in no apparent distress she is maintained on BiPAP, she is stating that her shortness of breath is improving she denies any chest pain there is no nausea or vomiting no abdominal pain no diarrhea and no urinary symptoms, however white b lood count is 11 hemoglobin 10.8, BUN 60 creatinine 1.12 On 01/11/2022 patient was seen and examined in the ICU she is alert responsive in no apparent distress BiPAP was discontinued and patient was started on Airvo high flow oxygen she is still maintained on levophed for pressure support and this is being weaned down gradually. White blood count is down today to 7.5 BUN down to 45 creatinine 0.83 patient denies any chest pain or shortness of breath is improving, she is receiving IV antibiotic Zosyn she is also receiving Remdesevir for Covid-19 On 01/12/22, patient was seen and examined in the ICU, she is alert and oriented x 3, patient remains on airvo 55% FiO2, chest x-ray is showing some worsening today with interstitial infiltrates, possible interstitial edema. She remains on Decadron, she is also on eliquis, and she is on Zosyn. patient is still requiring norepinephrine On 01/13/2022 patient remains in the intensive care unit. Patient did require higher levels of irritable last night per nursing staff but is back down to 55%. Steroids were increased per pulmonary and critical care. Current vital signs temp 98.6, heart rate 75, respiratory rate 23, blood pressure 107/71 patient currently on 60% airflow satting 98% Objective - Vital Signs Vital signs: Vital Signs Temp 98.6 F 01/13/22 08:00 Pulse 67 01/13/22 09:00 Resp 18 01/13/22 09:00 BP 103/62 01/13/22 09:00 Pulse Ox 97 01/13/22 09:00 FiO2 75 01/13/22 08:47 Intake & Output 01/12/22 01/13/22 01/13/22 18:59 06:59 18:59 Intake Total 475.230 404.813 83.736 Output Total 3660 800 425 Balance -3184.770 -395.187 -341.264 Intake: IV 436 216 39 0.9 Normal Saline @ 10mL/ 100 80 30 hr KVO 0.9NS Pressure Bag 36 36 9 Piperacillin-Tazobactam 3 100 100 .375 gm In Sodium Chloride 0.9% 100 ml @ 25 mls/hr IVPB Q8HR [facility] Rx# :[id number] Potassium Chloride 10 meq 200 In Water For Injection 1 100ml.bag @ 100 mls/hr IVPB Q1H [facility] Rx#: [id number] Intake, IV Titration 29.230 188.813 44.736 Amount Norepinephrine 8 mg In 29.230 188.813 44.736 Sodium Chloride 0.9% 250 ml @ 0.03 MCG/KG/MIN 3. 947 mls/hr IV .Q24H [facility] Rx#:[id number] Lipid 10 0.9 Normal Saline @ 10mL/ 10 hr KVO Output: Urine 3660 800 425 Other: Voiding Method Indwelling Catheter Indwelling Catheter Indwelling Catheter ABP, PAP, CO, CI - Last Documented Arterial Blood Pressure 82/39 - Exam In general patient is alert responsive maintained on BiPAP HEENT head normocephalic and atraumatic Neck is supple no JVD no goiter no lymphadenopathy no carotid bruit Chest examination reveals a scattered crackles bilaterally with mild wheezing Cardiac exam reveals regular heart sounds S1 and S2 no gallops no murmurs Abdomen is soft nontender no organomegaly with normal bowel sounds Extremity exam reveals no edema no cyanosis or clubbing, poor pulses peripherally Neurological examination reveals no gross focal deficits - Labs CBC & Chem 7: 01/13/22 05:30 01/13/22 05:30 Labs: Abnormal Lab Results - Last 24 Hours (Table) 01/13/22 01/13/22 Range/Units 05:30 05:30 WBC 11.3 H (3.8-10.6) k/uL Hgb 11.3 L (11.4-16.0) gm/dL Neutrophils # 9.3 H (1.3-7.7) k/uL Carbon Dioxide 33 H (22-30) mmol/L BUN 23 H (7-17) mg/dL Glucose 108 H (74-99) mg/dL Calcium 7.2 L (8.4-10.2) mg/dL Total Protein 4.4 L (6.3-8.2) g/dL Albumin 2.1 L (3.5-5.0) g/dL Microbiology - Last 24 Hours (Table) 01/07/22 13:56 Blood Culture - Preliminary Blood No Growth after 120 hours 01/07/22 13:56 Blood Culture - Preliminary Blood No Growth after 120 hours Assessment and Plan Assessment: Acute hypoxic respiratory failure Acute coronary 19 pneumonia Underlying history of chronic obstructive pulmonary disease Sepsis as evidenced by leukocytosis, tachycardia, mild elevation in lactic acid and hypotension Elevated d-dimer Acute kidney injury possibly related to dehydration and prerenal azotemia, will monitor kidney function Underlying history of hypertension Underlying history of hypothyroidism Chronic tobacco use patient smokes up to 2 packs per day At this time patient is admitted to intensive care unit Pulmonary, vascular surgery, and cardiology consultation requested Patient started on IV antibiotics, IV a Remdesevir, IV steroids and inhaled bronchodilators Patient was also started on IV heparin Medication and labs reviewed will follow closely Prognosis is guarded due to severity of illness
[2022-01-13] MEDS: methylPREDNISolone SOD SUCCI 40 MG/ML 1 ML VIAL IV SCH ×3 (12:44→23:47)
--- NOTE | 2022-01-13 12:57 | P.PN ---
Subjective Progress Note Date: 01/13/22 Principal diagnosis: Acute hypoxic resource failure secondary to COVID-19 pneumonia This is a 76-year-old female who is not a great historian, her daughter is at bedside, patient is known to have history of hypothyroidism, COPD, history generalized anxiety disorder, patient has been weak for the last few days. According to the daughter, patient fell 4 days ago, and has been complaining of pain to her buttocks. Patient also had some intermittent cough, shortness of breath, and according to the daughter the patient has not been taking her medications including her thyroid medicine and her Combivent for COPD. Patient is a heavy smoker, she smoked 2 packs a day for many years. Does not use oxygen at home. Workup in the ER included a CBC which showed leukocytosis. Elevated d-dimer of 3.94. Abnormal renal profile with a BUN of 76 creatinine of 1.92 and low sodium of 129, elevated BNP level of 2580, normal troponin, and normal liver enzymes. Patient was also noted to have positive PCR for COVID-19, chest x-ray showed multifocal reticular markings and multifocal atypical infiltrates. Possible underlying pulmonary fibrosis. No old x-ray for comparison. Patient was also noted to be relatively hypotensive requiring fluid boluses with slight improvement of the blood pressure. I saw this patient in the ER, and I recommended admitting the patient to the ICU. In the meantime I ordered a high- resolution CT of the chest, started the patient on Remdesivir, patient is on 6 L nasal cannula, recommended fluid boluses, empiric antibiotics, pro-calcitonin level is pending, and order the COVID-19 cocktail. Reevaluated today on 01/08/22, patient remains in the ICU, her condition became a bit worse overnight, patient had to be placed on BiPAP, and she is now on BiPAP FiO2 of 50% IPAP 16 and EPAP of 6 I was able to cut down her FiO2 to 45% and her IPAP 10-14 EPAP remains at 6. Patient is requiring norepinephrine for low blood pressure, hence this is clearly a presentation of septic shock. Patient is requiring norepinephrine at 0.38 mcg/kg/m, her IV fluid went down to KVO after she received 4 L of fluids last night, felt that the patient was over hydrated, and her urine output picked up last night and I was notified about her worsening pulmonary status recommended Lasix dose earlier today with good response to the Lasix. Her creatinine is improving when down from 1.92-1.70 today. Bicarb remains low at 14 on him recommending a bicarb drip. Today I was able to establish a triple-lumen catheter and arterial line and the patient, her pro calcitonin was noted to be high at 5.47, patient was initially placed on vancomycin and Zosyn, blood cultures are negative so far, I'm recommending that we continue Zosyn, discontinue vancomycin, and recommending infectious disease consultation. I'm also recommending a CT of the lumbosacral spine since the patient has significant area of ecchymosis in the buttock area and low back. Apparently she fell 4 days ago. And she had significant amount of pain. The ER physician ordered a thoracic spine CT but did not address the lumbar spine area which seems to be the area of pain and the area of trauma. Patient remains on the COVID-19 cocktail. And I started the patient yesterday on Remdesivir. Since her symptoms were recent within the therapeutic window. WBC count is 20.2 hemoglobin is 12.5. Electrodes are normal except elevated potassium and that will improve with bicarbonate drip. Renal profile as noted earlier. Pro- calcitonin level is very high at 5.47 Reevaluated today on , patient remains in the ICU, remains on BiPAP, FiO2 40%, IPAP of 14 EPAP of 6. Remains on small dose of norepinephrine at 0.1 mcg/kg/m, patient remains on bicarb drip, I cut it down to 25 mL per hour today. Yesterday she had ultrasound of the gallbladder showing mostly cholelithiasis but no cholecystitis. Patient had negative CT of the lumbar spine. Remains on Zosyn empirically since her pro calcitonin level was quite high. She has better urine output, 35-50 mL per hour. Planning today to change from BiPAP possibly to airvo. Planning to gently diurese the patient, her chest x-ray is not mera wing much of a change in her bilateral interstitial infiltrates, and again I strongly suspect ongoing interstitial lung disease. WBC count 14.8 hemoglobin is 10.6, PTT is 73.7, patient remains on heparin. Basic metabolic profile is normal, BUN is 63 and creatinine 1.41. Reevaluated today on 01/10/22, patient remains in the ICU, remains on BiPAP, she is on 40% FiO2 IPAP of 12 EPAP of 5 Reed seems to be comfortable, and not in distress. Feeling better. Remains on heparin and she remains on norepinephrine at 0.1 mcg/kg/m. Today I am changes heparin to eliquis which she took on outpatient basis. Chest x-ray continues to show interstitial lung disease and interstitial infiltrates. Clinically the patient is feeling better. Her renal functioning is almost back to normal. Continues to have good urine output with diuresis. BUN is down to 60 creatinine is down to 1.12 patient remains on Remdesivir she remains on the COVID-19 cocktail. Reevaluated today on 01/11/22 patient remains in the ICU, she is now on airvo S 50% FiO2 and 60 L flow, saturating in the mid 90s, patient is still requiring norepinephrine at 0.12 mcg/kg/m. Remains on her day #5 of Remdesivir, she is also on Decadron, eliquis, and multivitamins, patient is also on Zosyn for empiric treatment of superimposed bacterial infection/pneumonia considering that her pro calcitonin level was quite high on admission. Overall clinically the patient is improving but very slowly. WBC count is 7.5 hemoglobin is 10.7. E lectrodes are normal renal profile is basically back to normal her creatinine is now 0.83. Reevaluated today on 02/08/22, patient remains in the ICU, remains relatively critically ill, patient is still requiring norepinephrine at 0.08 mcg/kg/m, patient remains on airvo at 55 L and 55% FiO2, chest x-ray is showing some worsening today with interstitial infiltrates, possible interstitial edema, hen ce I recommended a dose of Lasix 40 mg IV push, and the patient had significant urine output after the Lasix given. She remains on Decadron, she is also on eliquis, and she is on Zosyn. Her echocardiogram showed good LV function, however I am planning to keep the patient on the dry side considering her underlying COVID-19 pneumonia and her underlying interstitial lung disease. WBC count is 9 hemoglobin is 10.8 electrolytes are normal renal profile is normal, blood cultures remain negative. Pro-calcitonin level on admission was elevated. Reevaluated today on 01/13/22, patient remains in the ICU, remains critically ill, she remains on high flow oxygen via airflow, she is on 60% FiO2 and 60 L flow. Patient doesn't respond to diuretics quite well, however her chest x-ray is not showing much improvement, I strongly believe that we are dealing with COVID-19 pneumonia along with interstitial lung disease/pulmonary fibrosis. Not much of a change in the last 24 hours, patient is still on antibiotics empirically because of her pro calcitonin level was elevated, she is still on diuretics as needed, she still requiring norepinephrine at 0.05 mcg/kg/m. Patient remains marginal at best, and I have no plans to transfer the patient out of the ICU at this point yet. She may eventually require a PICC line placement she does have a central access test present but needs to be changed to a PICC line. Objective - Vital Signs Vital signs: Vital Signs Temp 98.6 F 01/13/22 08:00 Pulse 67 01/13/22 09:00 Resp 18 01/13/22 09:00 BP 103/62 01/13/22 09:00 Pulse Ox 97 01/13/22 09:00 FiO2 55 01/13/22 11:41 Intake & Output 01/12/22 01/13/22 01/13/22 18:59 06:59 18:59 Intake Total 475.230 404.813 109.736 Output Total 3660 800 625 Balance -3184.770 -395.187 -515.264 Intake: IV 436 216 65 0.9 Normal Saline @ 10mL/ 100 80 50 hr KVO 0.9NS Pressure Bag 36 36 15 Piperacillin-Tazobactam 3 100 100 .375 gm In Sodium Chloride 0.9% 100 ml @ 25 mls/hr IVPB Q8HR [facility] Rx# :[id number] Potassium Chloride 10 meq 200 In Water For Injection 1 100ml.bag @ 100 mls/hr IVPB Q1H [facility] Rx#: [id number] Intake, IV Titration 29.230 188.813 44.736 Amount Norepinephrine 8 mg In 29.230 188.813 44.736 Sodium Chloride 0.9% 250 ml @ 0.03 MCG/KG/MIN 3. 947 mls/hr IV .Q24H [facility] Rx#:[id number] Lipid 10 0.9 Normal Saline @ 10mL/ 10 hr KVO Output: Urine 3660 800 625 Other: Voiding Method Indwelling Catheter Indwelling Catheter Indwelling Catheter ABP, PAP, CO, CI - Last Documented Arterial Blood Pressure 82/39 - Exam Physical Exam: Revealed 76-year-old female in no distress, frail looking, chronically ill. On airvo60% FiO2 and 60 L flow. Head: Atraumatic, normocephalic. HEENT:[Neck is supple.] [No neck masses.] [No thyromegaly.] [No JVD.] Dry mucous membranes. Chest: [Symmetrical chest expansion, diffuse rhonchi and crackles bilaterally. Cardiac Exam: [Normal S1 and S2, no S3 gallop, no murmur.] Abdomen: [Soft, nontender, no megaly, no rebound, no guarding, normal bowel sounds.] Extremities: [No clubbing, no edema, no cyanosis.] Neurological Exam: [No focal neurologic deficit.] Alert oriented 3, she seems to be generally weak. Psychiatric: Normal mood, affect and normal mental status examination. Skin: Lumbosacral's area ecchymosis from recent fall. Musculoskeletal: No deformities and no limitation of range of motion - Labs CBC & Chem 7: 01/13/22 05:30 01/13/22 05:30 Labs: Abnormal Lab Results - Last 24 Hours (Table) 01/13/22 01/13/22 Range/Units 05:30 05:30 WBC 11.3 H (3.8-10.6) k/uL Hgb 11.3 L (11.4-16.0) gm/dL Neutrophils # 9.3 H (1.3-7.7) k/uL Carbon Dioxide 33 H (22-30) mmol/L BUN 23 H (7-17) mg/dL Glucose 108 H (74-99) mg/dL Calcium 7.2 L (8.4-10.2) mg/dL Total Protein 4.4 L (6.3-8.2) g/dL Albumin 2.1 L (3.5-5.0) g/dL Microbiology - Last 24 Hours (Table) 01/07/22 13:56 Blood Culture - Preliminary Blood No Growth after 120 hours 01/07/22 13:56 Blood Culture - Preliminary Blood No Growth after 120 hours Assessment and Plan Assessment: Impression: Acute hypoxic respiratory failure secondary to acute COVID-19 pneumonia, underlying bacterial pneumonia is very likely considering her chest x-ray findings and considering elevated pro calcitonin level. Possible interstitial lung disease/pulmonary fibrosis, likely contributing to her acute hypoxic respiratory failure Hypotension, secondary to sepsis/septic shock, and I believe there is sign ificant component of dehydration/hypovolemia, this implies that the patient had septic and hypovolemic shock History of underlying COPD does not seem to be active at this point. But likely contributing to her hypoxic respiratory failure History of hypothyroidism History of generalized anxiety disorder Elevated d-dimer but negative venous Doppler for DVT, cannot perform CT angiogram of the chest mostly because of her renal functioning Acute dehydration Acute kidney injury secondary to dehydration Paroxysmal atrial fibrillation Recommendation: Continue to monitor in the ICU, continue airvo and titrate FiO2 accordingly change Decadron to Solu-Medrol 40 mg IV push 3 times a day. Arrange for the patient to the PICC line. And discontinue central line. this may be a long hospitalization. Continue present supportive care measures Continue eliquis Continue to titrate and possibly discontinue norepinephrine presently at 0.05 mcg/kg/m Continue Zosyn, empirically Patient finished a full course of Remdesivir Continue COVID-19 cocktail. Patient is critically ill, critical care time is over 30 minutes Time with Patient: Greater than 30
--- NOTE | 2022-01-13 13:23 | PN ---
PROGRESS NOTE SUBJECTIVE: Samantha is a 76-year-old lady with coronavirus infection with pneumonia and respiratory failure that we are following for atrial fibrillation. She remains in atrial fibrillation with controlled ventricular rate, more alert, but still somewhat confused. OBJECTIVE: VITAL SIGNS: Heart rate is 76 beats per minute, blood pressure is 120/59, respiratory rate is 18. CHEST: Reveals bilateral rhonchi. HEART: Reveals first and second heart sounds. No gallop. EXTREMITIES: Revealed mild edema. LABORATORY DATA: Labs show a potassium of 3.7, creatinine is 0.6, hemoglobin is 11.3. ASSESSMENT: 1. Respiratory failure secondary to COVID pneumonia. 2. Persistent atrial fibrillation. PLAN: We will continue her on Eliquis that she is on. An echocardiogram on this admission revealed normal LV function. MMODL / IJN: [id number] /
[2022-01-13] MEDS ORDERED: DEXTROSE 50% SYRINGE 50 ML IVP STA (17:19)
[2022-01-13] MEDS ORDERED: INSULIN REGULAR 100 UNIT/ML VIAL (IV) IV ONE (17:19)
[2022-01-13] MEDS: risperiDONE 2 MG TAB PO SCH (19:58)
[2022-01-13] MEDS: ALPRAZolam 0.25 MG TAB PO PRN (21:42)
--- NOTE | 2022-01-13 22:59 | P.PN ---
Subjective Progress Note Date: 01/13/22 Principal diagnosis: Sacral wound Patient is a 76-year old female with multiple comorbidities including COPD current 2 pack smoker hypothyroidism presented to the hospital with weakness patient also have a fall landed on her gluteal area and has developed a deep tissue injury to the sacral area and tested positive for COVID-19. On today's evaluation that is 01/13/2022 the patient remains to be afebrile, patient is breathing comfortably high flow 5 L nasal cannula oxygen, the patient denies any chest pain, abdominal pain or any worsening pain to the sacral wound area Objective - Vital Signs Vital signs: Vital Signs Temp 98.3 F 01/13/22 12:00 Pulse 66 01/13/22 13:00 Resp 14 01/13/22 13:00 BP 89/59 01/13/22 13:00 Pulse Ox 92 L 01/13/22 13:00 FiO2 60 01/13/22 12:00 Intake & Output 01/12/22 01/13/22 01/13/22 18:59 06:59 18:59 Intake Total 475.230 404.813 135.736 Output Total 3660 800 925 Balance -3184.770 -395.187 -789.264 Intake: IV 436 216 91 0.9 Normal Saline @ 10mL/ 100 80 70 hr KVO 0.9NS Pressure Bag 36 36 21 Piperacillin-Tazobactam 3 100 100 .375 gm In Sodium Chloride 0.9% 100 ml @ 25 mls/hr IVPB Q8HR [facility] Rx# :[id number] Potassium Chloride 10 meq 200 In Water For Injection 1 100ml.bag @ 100 mls/hr IVPB Q1H [facility] Rx#: [id number] Intake, IV Titration 29.230 188.813 44.736 Amount Norepinephrine 8 mg In 29.230 188.813 44.736 Sodium Chloride 0.9% 250 ml @ 0.03 MCG/KG/MIN 3. 947 mls/hr IV .Q24H [facility] Rx#:[id number] Lipid 10 0.9 Normal Saline @ 10mL/ 10 hr KVO Output: Urine 3660 800 925 Other: Voiding Method Indwelling Catheter Indwelling Catheter Indwelling Catheter ABP, PAP, CO, CI - Last Documented Arterial Blood Pressure 90/41 - Exam GENERAL DESCRIPTION: An elderly female lying in bed in no distress RESPIRATORY SYSTEM: Unlabored breathing , decreased breath sounds at bases HEART: S1 S2 regular rate and rhythm , ABDOMEN: Soft , no tenderness Wound to the sacral area currently covered with the [facility] dressing no drainage EXTREMITIES: No edema feet - Labs CBC & Chem 7: 01/13/22 05:30 01/13/22 05:30 Labs: Abnormal Lab Results - Last 24 Hours (Table) 01/13/22 01/13/22 Range/Units 05:30 05:30 WBC 11.3 H (3.8-10.6) k/uL Hgb 11.3 L (11.4-16.0) gm/dL Neutrophils # 9.3 H (1.3-7.7) k/uL Carbon Dioxide 33 H (22-30) mmol/L BUN 23 H (7-17) mg/dL Glucose 108 H (74-99) mg/dL Calcium 7.2 L (8.4-10.2) mg/dL Total Protein 4.4 L (6.3-8.2) g/dL Albumin 2.1 L (3.5-5.0) g/dL Microbiology - Last 24 Hours (Table) 01/07/22 13:56 Blood Culture - Preliminary Blood No Growth after 120 hours 01/07/22 13:56 Blood Culture - Preliminary Blood No Growth after 120 hours Assessment and Plan (1) Pressure ulcer of sacral region, stage 2 Current Visit: Yes Status: Acute Code(s): L89.152 - PRESSURE ULCER OF SACRAL REGION, STAGE 2 SNOMED Code(s): 31282174726823 Plan: 1patient with acute respiratory failure which is multifactorial concerning for possible pneumonia in this patient also tested positive for COVID however did have elevated procalcitonin superadded bacterial pneumonia not entirely excluded, patient has some clinical improvement and will continue with the Zosyn Heparin dexamethasone zinc and ascorbic acid. 2-patient with a deep tissue injury to the sacral area and likely stage II sacral pressure ulcer with no cellulitis patient to continue local wound care with dry protective dressing and keep the area off the pressure Time with Patient: Less than 30
[2022-01-14] MEDS: SODIUM CHLORIDE 0.9% 1,000 ML IV SCH (05:05)
[2022-01-14 05:26] LABS: Basophils % (A) 0 %; Eosinophils % (A) 0 %; HCT 33.6 % (34.0-46.0); HGB 10.7 gm/dL (11.4-16.0); Hypochromasia Slight; Lymphocytes # (A) 0.5 k/uL (1.0-4.8); Lymphocytes % (A) 6 %; MCH 27.1 pg (25.0-35.0); MCHC 31.9 g/dL (31.0-37.0); MCV 85.1 fL (80.0-100.0); Mean Platelet Volume 8.8; Monocytes # (A) 0.3 k/uL (0-1.0); Monocytes % (A) 3 %; Neutrophils # (A) 8.7 k/uL (1.3-7.7); Neutrophils % (A) 90 %; Platelet Count 431 k/uL (150-450); RBC 3.94 m/uL (3.80-5.40); RDW 14.8 % (11.5-15.5); WBC 9.6 k/uL (3.8-10.6)
[2022-01-14 05:30] LABS: African American GFR (CKD) >90 (>60 ml/min/1.73 sqM); Anion Gap 0 mmol/L; Blood Urea Nitrogen 22 mg/dL (7-17); Calcium 7.4 mg/dL (8.4-10.2); Carbon Dioxide 32 mmol/L (22-30); Chloride 103 mmol/L (98-107); Glucose 150 mg/dL (74-99); Non-African American GFR(CKD) >90 (>60 ml/min/1.73 sqM); Potassium 4.2 mmol/L (3.5-5.1); Sodium 135 mmol/L (137-145)
[2022-01-14] MEDS: LEVOTHYROXINE 75 MCG TAB PO SCH (06:20)
[2022-01-14] MEDS: NOREPINEPHRINE 8 MG in SODIUM CHLORIDE 0.9% 250 ML IV SCH (06:30)
--- NOTE | 2022-01-14 07:52 | P.PN ---
Subjective Progress Note Date: 01/14/22 Principal diagnosis: Persistent atrial fibrillation The patient is a pleasant 76-year-old female patient was admitted to the hospital with COVID-19 infection with a pneumonia and we consulted to see the patient because of atrial fibrillation. January 142021 The patient was seen this morning. She seems to be overall stable from a cardiovascular standpoint of view. She remains in atrial fibrillation with overall controlled heart rate. Currently she is on oral anticoagulation. He went dynamically she is a stable as well as she's not requiring any vasopressors. From the cardiovascular standpoint of view, we'll continue the current medical regimen. She underwent an echo which revealed normal LV function. Objective - Vital Signs Vital signs: Vital Signs Temp 98.7 F 01/14/22 04:00 Pulse 71 01/14/22 07:00 Resp 16 01/14/22 07:00 BP 107/56 01/14/22 07:00 Pulse Ox 89 L 01/14/22 07:00 FiO2 60 01/13/22 16:00 Intake & Output 01/13/22 01/14/22 01/14/22 18:59 06:59 18:59 Intake Total 247.737 484.543 20.614 Output Total 1600 800 Balance -1352.263 -315.457 20.614 Weight 69.1 kg Intake: IV 143 269 0.9 Normal Saline @ 10mL/ 110 130 hr KVO 0.9NS Pressure Bag 33 39 Piperacillin-Tazobactam 3 100 .375 gm In Sodium Chloride 0.9% 100 ml @ 25 mls/hr IVPB Q8HR [facility] Rx# :[id number] Intake, IV Titration 104.737 215.543 20.614 Amount Norepinephrine 8 mg In 104.737 215.543 20.614 Sodium Chloride 0.9% 250 ml @ 0.03 MCG/KG/MIN 3. 947 mls/hr IV .Q24H [facility] Rx#:[id number] Output: Urine 1600 800 Other: Voiding Method Indwelling Catheter Indwelling Catheter ABP, PAP, CO, CI - Last Documented Arterial Blood Pressure 108/51 - Constitutional General appearance: Present: no acute distress - Labs CBC & Chem 7: 01/14/22 05:07 01/14/22 05:07 Labs: Abnormal Lab Results - Last 24 Hours (Table) 01/14/22 01/14/22 Range/Units 05:07 05:07 Hgb 10.7 L (11.4-16.0) gm/dL Hct 33.6 L (34.0-46.0) % Neutrophils # 8.7 H (1.3-7.7) k/uL Lymphocytes # 0.5 L (1.0-4.8) k/uL Sodium 135 L (137-145) mmol/L Carbon Dioxide 32 H (22-30) mmol/L BUN 22 H (7-17) mg/dL Glucose 150 H (74-99) mg/dL Calcium 7.4 L (8.4-10.2) mg/dL Microbiology - Last 24 Hours (Table) 01/07/22 13:56 Blood Culture - Final Blood No Growth after 144 hours 01/07/22 13:56 Blood Culture - Final Blood No Growth after 144 hours Assessment and Plan Assessment: Assessment #1 COVID-19 infection #2 persistent atrial fibrillation was controlled heart rate Plan #1 continue the current medical regimen #2 continue oral anticoagulation #3 follow-up with the patient
[2022-01-14] MEDS: ALBUTEROL HFA INHALER INHALATION SCH ×4 (08:28→19:41)
[2022-01-14] MEDS: SYMBICORT 160-4.5 MCG INHALER INHALATION SCH ×2 (08:29→19:42)
[2022-01-14] MEDS: CHOLECALCIFEROL 25 MCG (1000 IU) TABLET PO SCH (08:35)
[2022-01-14] MEDS: ZINC SULFATE 220 MG CAP PO SCH (08:35)
[2022-01-14] MEDS: methylPREDNISolone SOD SUCCI 40 MG/ML 1 ML VIAL IV SCH ×3 (08:35→23:38)
[2022-01-14] MEDS: CITALOPRAM HYDROBROMIDE 10 MG TAB PO SCH (08:35)
[2022-01-14] MEDS: APIXABAN 5 MG TAB PO SCH ×2 (08:35→19:37)
[2022-01-14] MEDS: PANTOPRAZOLE 40 MG/10 ML VIAL IV SCH (08:35)
[2022-01-14] MEDS: PIPERACILLIN-TAZOBACTAM 3.375 GM in SODIUM CHLORIDE 0.9% 100 ML IVPB SCH ×3 (08:36→23:39)
[2022-01-14] MEDS: ASCORBIC ACID 500 MG TAB PO SCH ×2 (08:36→19:37)
--- NOTE | 2022-01-14 11:04 | P.PN ---
Subjective Progress Note Date: 01/14/22 This is a 76-year-old female who is not a great historian, her daughter is at bedside, patient is known to have history of hypothyroidism, COPD, history generalized anxiety disorder, patient has been weak for the last few days. According to the daughter, patient fell 4 days ago, and has been complaining of pain to her buttocks. Patient also had some intermittent cough, shortness of breath, and according to the daughter the patient has not been taking her medications including her thyroid medicine and her Combivent for COPD. Patient is a heavy smoker, she smoked 2 packs a day for many years. Does not use oxygen at home. Workup in the ER included a CBC which showed leukocytosis. Elevated d-dimer of 3.94. Abnormal renal profile with a BUN of 76 creatinine of 1.92 and low sodium of 129, elevated BNP level of 2580, normal troponin, and normal liver enzymes. Patient was also noted to have positive PCR for COVID-19, chest x-ray showed multifocal reticular markings and multifocal atypical infiltrates. Possible underlying pulmonary fibrosis. No old x-ray for comparison. Patient was also noted to be relatively hypotensive requiring fluid boluses with slight improvement of the blood pressure. I saw this patient in the ER, and I recommended admitting the patient to the ICU. In the meantime I ordered a high- resolution CT of the chest, started the patient on Remdesivir, patient is on 6 L nasal cannula, recommended fluid boluses, empiric antibiotics, pro-calcitonin level is pending, and order the COVID-19 cocktail. Reevaluated today on 01/08/22, patient remains in the ICU, her condition became a bit worse overnight, patient had to be placed on BiPAP, and she is now on BiPAP FiO2 of 50% IPAP 16 and EPAP of 6 I was able to cut down her FiO2 to 45% and her IPAP 10-14 EPAP remains at 6. Patient is requiring norepinephrine for low blood pressure, hence this is clearly a presentation of septic shock. Patient is requiring norepinephrine at 0.38 mcg/kg/m, her IV fluid went down to KVO after she received 4 L of fluids last night, felt that the patient was over hydrated, and her urine output picked up last night and I was notified about her worsening pulmonary status recommended Lasix dose earlier today with good response to the Lasix. Her creatinine is improving when down from 1.92-1.70 today. Bicarb remains low at 14 on him recommending a bicarb drip. Today I was able to establish a triple-lumen catheter and arterial line and the patient, her pro calcitonin was noted to be high at 5.47, patient was initially placed on vancomycin and Zosyn, blood cultures are negative so far, I'm recommending that we continue Zosyn, discontinue vancomycin, and recommending infectious disease consultation. I'm also recommending a CT of the lumbosacral spine since the patient has significant area of ecchymosis in the buttock area and low back. Apparently she fell 4 days ago. And she had significant amount of pain. The ER physician ordered a thoracic spine CT but did not address the lumbar spine area which seems to be the area of pain and the area of trauma. Patient remains on the COVID-19 cocktail. And I started the patient yesterday on Remdesivir. Since her symptoms were recent within the therapeutic window. WBC count is 20.2 hemoglobin is 12.5. Electrodes are normal except elevated potassium and that will improve with bicarbonate drip. Renal profile as noted earlier. Pro- calcitonin level is very high at 5.47 Reevaluated today on , patient remains in the ICU, remains on BiPAP, FiO2 40%, IPAP of 14 EPAP of 6. Remains on small dose of norepinephrine at 0.1 mcg/kg/m, patient remains on bicarb drip, I cut it down to 25 mL per hour today. Yesterday she had ultrasound of the gallbladder showing mostly cholelithiasis but no cholecystitis. Patient had negative CT of the lumbar spine. Remains on Zosyn empirically since her pro calcitonin level was quite high. She has better urine output, 35-50 mL per hour. Planning today to change from BiPAP possibly to airvo. Planning to gently diurese the patient, her chest x-ray is not showing much of a change in her bilateral interstitial infiltrates, and again I strongly suspect ongoing interstitial lung disease. WBC count 14.8 hemoglobin is 10.6, PTT is 73.7, patient remains on heparin. Basic metabolic profile is normal, BUN is 63 and creatinine 1.41. Reevaluated today on 01/10/22, patient remains in the ICU, remains on BiPAP, she is on 40% FiO2 IPAP of 12 EPAP of 5 Reed seems to be comfortable, and not in distress. Feeling better. Remains on heparin and she remains on norepinephrine at 0.1 mcg/kg/m. Today I am changes heparin to eliquis which she took on outpatient basis. Chest x-ray continues to show interstitial lung disease and interstitial infiltrates. Clinically the patient is feeling better. Her renal functioning is almost back to normal. Continues to have good urine output with diuresis. BUN is down to 60 creatinine is down to 1.12 patient remains on Remdesivir she remains on the COVID-19 cocktail. Reevaluated today on 01/11/22 patient remains in the ICU, she is now on airvo S 50% FiO2 and 60 L flow, saturating in the mid 90s, patient is still requiring n orepinephrine at 0.12 mcg/kg/m. Remains on her day #5 of Remdesivir, she is also on Decadron, eliquis, and multivitamins, patient is also on Zosyn for empiric treatment of superimposed bacterial infection/pneumonia considering that her pro calcitonin level was quite high on admission. Overall clinically the patient is improving but very slowly. WBC count is 7.5 hemoglobin is 10.7. Electrodes are normal renal profile is basically back to normal her creatinine is now 0.83. Reevaluated today on 02/08/22, patient remains in the ICU, remains relatively critically ill, patient is still requiring norepinephrine at 0.08 mcg/kg/m, patient remains on airvo at 55 L and 55% FiO2, chest x-ray is showing some worsening today with interstitial infiltrates, possible interstitial edema, hence I recommended a dose of Lasix 40 mg IV push, and the patient had significant urine output after the Lasix given. She remains on Decadron, she is also on eliquis, and she is on Zosyn. Her echocardiogram showed good LV function, however I am planning to keep the patient on the dry side considering her underlying COVID-19 pneumonia and her underlying interstitial lung disease. WBC count is 9 hemoglobin is 10.8 electrolytes are normal renal profile is normal, blood cultures remain negative. Pro-calcitonin level on admission was elevated. Reevaluated today on 01/13/22, patient remains in the ICU, remains critically ill, she remains on high flow oxygen via airflow, she is on 60% FiO2 and 60 L flow. Patient doesn't respond to diuretics quite well, however her chest x-ray is not showing much improvement, I strongly believe that we are dealing with COVID-19 pneumonia along with interstitial lung disease/pulmonary fibrosis. Not much of a change in the last 24 hours, patient is still on antibiotics empirically because of her pro calcitonin level was elevated, she is still on diuretics as needed, she still requiring norepinephrine at 0.05 mcg/kg/m. Patient remains marginal at best, and I have no plans to transfer the patient out of the ICU at this point yet. She may eventually require a PICC line placement she does have a central access test present but needs to be changed to a PICC line. The patient is seen today 01/14/2022 in follow-up in the intensive care unit. She was admitted back on 01/07/2022 for COPD exacerbation and COVID-19 19 pneumonia. She remains on 15 L high flow nasal cannula to maintain O2 saturations in the 90s. Normal saline at 20 ML's per hour. She is currently off norepinephrine. She has completed a course of Remdesivir. She remains on Symbicort, Spiriva, IV Solu-Medrol, Albuterol HFA, vitamin supplements. She remains on antibiotics in the form of Zosyn. She is anticoagulated with Eliquis. She has been slow to progress. Blood cultures revealed no growth. White count 9.6. Hemoglobin 10.7. Lymphocytes 0.5. Sodium 135. Potassium 4.2. BUN 22. Creatinine 0.58. Glucose 150. Follow-up pro calcitonin pending. Objective - Vital Signs Vital signs: Vital Signs Temp 98.1 F 01/14/22 08:00 Pulse 54 L 01/14/22 09:00 Resp 12 01/14/22 09:00 BP 86/45 01/14/22 09:00 Pulse Ox 90 L 01/14/22 09:00 FiO2 60 01/13/22 16:00 Intake & Output 01/13/22 01/14/22 01/14/22 18:59 06:59 18:59 Intake Total 247.737 484.543 166.614 Output Total 1600 800 100 Balance -1352.263 -315.457 66.614 Weight 69.1 kg Intake: IV 143 269 146 0.9 Normal Saline @ 10mL/ 110 130 40 hr KVO 0.9NS Pressure Bag 33 39 6 Piperacillin-Tazobactam 3 100 100 .375 gm In Sodium Chloride 0.9% 100 ml @ 25 mls/hr IVPB Q8HR [facility] Rx# :[id number] Intake, IV Titration 104.737 215.543 20.614 Amount Norepinephrine 8 mg In 104.737 215.543 20.614 Sodium Chloride 0.9% 250 ml @ 0.03 MCG/KG/MIN 3. 947 mls/hr IV .Q24H [facility] Rx#:[id number] Output: Urine 1600 800 100 Other: Voiding Method Indwelling Catheter Indwelling Catheter Indwelling Catheter ABP, PAP, CO, CI - Last Documented Arterial Blood Pressure 82/36 - Exam GENERAL EXAM: Alert, frail, 76-year-old female, on 15 L high flow nasal cannula, comfortable in no apparent distress. HEAD: Normocephalic. EYES: Normal reaction of pupils, equal size. NOSE: Clear with pink turbinates. THROAT: No erythema or exudates. NECK: No masses, no JVD. CHEST: No chest wall deformity. LUNGS: Equal air entry with echoes in the bilateral bases. CVS: S1 and S2 normal with no audible murmur, irregular rhythm. ABDOMEN: No hepatosplenomegaly, normal bowel sounds, no guarding or rigidity. SPINE: No scoliosis or deformity SKIN: No rashes. Ecchymosis of the lower lumbar sacral area due to previous fal l CENTRAL NERVOUS SYSTEM: No focal deficits, tone is normal in all 4 extremities. EXTREMITIES: There is no peripheral edema. No clubbing, no cyanosis. Peripheral pulses are intact. - Labs CBC & Chem 7: 01/14/22 05:07 01/14/22 05:07 Labs: Abnormal Lab Results - Last 24 Hours (Table) 01/14/22 01/14/22 Range/Units 05:07 05:07 Hgb 10.7 L (11.4-16.0) gm/dL Hct 33.6 L (34.0-46.0) % Neutrophils # 8.7 H (1.3-7.7) k/uL Lymphocytes # 0.5 L (1.0-4.8) k/uL Sodium 135 L (137-145) mmol/L Carbon Dioxide 32 H (22-30) mmol/L BUN 22 H (7-17) mg/dL Glucose 150 H (74-99) mg/dL Calcium 7.4 L (8.4-10.2) mg/dL Microbiology - Last 24 Hours (Table) 01/07/22 13:56 Blood Culture - Final Blood No Growth after 144 hours 01/07/22 13:56 Blood Culture - Final Blood No Growth after 144 hours Assessment and Plan Assessment: Acute hypoxic respiratory failure secondary to acute COVID-19 pneumonia, underlying bacterial pneumonia is very likely considering her chest x-ray findings and considering elevated pro calcitonin level. Possible interstitial lung disease/pulmonary fibrosis, likely contributing to her acute hypoxic respiratory failure Hypotension, secondary to sepsis/septic shock, septic and hypovolemic shock, currently off norepinephrine History of underlying COPD does not seem to be active at this point. But likely contributing to her hypoxic respiratory failure History of hypothyroidism History of generalized anxiety disorder Elevated d-dimer but negative venous Doppler for DVT, cannot perform CT angiogram of the chest mostly because of her renal functioning Acute dehydration Acute kidney injury secondary to dehydration Paroxysmal atrial fibrillation, anticoagulated with Eliquis Plan: The patient was seen and evaluated Medications and labs reviewed Check a follow-up pro calcitonin Continue Zosyn for now Titrate the FiO2 as tolerated Prognosis is guarded DO NOT RESUSCITATE/DO NOT INTUBATE CODE STATUS We will continue to follow I have personally seen and examined the patient, performed the documentation and the assessment and plan as written. Number of minutes spent on the visit: 10.
[2022-01-14] MEDS: TIOTROPIUM 2.5 MCG INHALER INHALATION SCH (11:41)
--- NOTE | 2022-01-14 17:06 | P.PN ---
Subjective Progress Note Date: 01/14/22 Samantha Brown, is a 76-year-old female who presented to [facility] emergency room with a chief complaint of generalized weakness, patient's daughter reported in the emergency room that her mother had a fall 4 days prior to presentation She was evaluated in the emergency room vital examination on presentation revealed Laboratory data revealed a white blood count of 14.4 hemoglobin 12.2 platelet count 476 INR 1.2 d-dimer 3.94 sodium 129 potassium 5.1 chloride 99 CO2 23 BUN 76 creatinine 1.92 lactic acid 1.7 Corps on a virus PCR was positive Testing in the emergency room revealed chest x-ray done in emergency room revealed small bilateral pleural effusions and multifocal areas of increased reticular markings, EKG revealed atrial fibrillation with a heart rate of 86 Patient was admitted to medical floor for further evaluation and treatment. Past medical history is significant for history of hypertension, history of hyperlipidemia, history of hypothyroidism, and history of tobacco use patient smokes 2 packs per day On 01/08/2022 patient was seen and examined in the ICU she is alert responsive in mild distress due to shortness of breath, she was started on BiPAP during the night, she is maintained on norepinephrine for pressure support, she is also maintained on IV antibiotic Zosyn, input from cardiology and pulmonary review, patient's daughter Pily contacted over the phone and all questions answered to her satisfaction. On 01/09/2022 patient remains in the intensive care unit slightly improved. Patient remains on BiPAP. Creatinine improving to 1.41 bun 63. Patient remains on IV heparin. Patient also remains on sodium bicarb current vital signs heart rate 88, respiratory rate 19, blood pressure 108/51 patient satting 93% on BiPAP 40% FiO2. On 01/10/2022 patient was seen and examined in the ICU she is alert responsive in no apparent distress she is maintained on BiPAP, she is stating that her shortness of breath is improving she denies any chest pain there is no nausea or vomiting no abdominal pain no diarrhea and no urinary symptoms, however white blood count is 11 hemoglobin 10.8, BUN 60 creatinine 1.12 On 01/11/2022 patient was seen and examined in the ICU she is alert responsive in no apparent distress BiPAP was discontinued and patient was started on Airvo high flow oxygen she is still maintained on levophed for pressure support and this is being weaned down gradually. White blood count is down today to 7.5 BUN down to 45 creatinine 0.83 patient denies any chest pain or shortness of breath is improving, she is receiving IV antibiotic Zosyn she is also receiving Remdesevir for Covid-19 On 01/12/22, patient was seen and examined in the ICU, she is alert and oriented x 3, patient remains on airvo 55% FiO2, chest x-ray is showing some worsening today with interstitial infiltrates, possible interstitial edema. She remains on Decadron, she is also on eliquis, and she is on Zosyn. patient is still requiring norepinephrine On 01/13/2022 patient remains in the intensive care unit. Patient did require higher levels of irritable last night per nursing staff but is back down to 55%. Steroids were increased per pulmonary and critical care. Current vital signs temp 98.6, heart rate 75, respiratory rate 23, blood pressure 107/71 patient currently on 60% airflow satting 98% On 01/14/2022 patient was seen and examined in the ICU she is alert and oriented 3 in no apparent distress she is still maintained on high flow oxygen there is no fever or chills no headache or dizziness no chest pain she has occasional cough no nausea or vomiting no abdominal pain no diarrhea no blood in the stools, no urinary symptoms Wren catheter is in. Objective - Vital Signs Vital signs: Vital Signs Temp 98.7 F 01/14/22 04:00 Pulse 71 01/14/22 07:00 Resp 16 01/14/22 07:00 BP 107/56 01/14/22 07:00 Pulse Ox 89 L 01/14/22 07:00 FiO2 60 01/13/22 16:00 Intake & Output 01/13/22 01/14/22 01/14/22 18:59 06:59 18:59 Intake Total 247.737 484.543 166.614 Output Total 1600 800 100 Balance -1352.263 -315.457 66.614 Weight 69.1 kg Intake: IV 143 269 146 0.9 Normal Saline @ 10mL/ 110 130 40 hr KVO 0.9NS Pressure Bag 33 39 6 Piperacillin-Tazobactam 3 100 100 .375 gm In Sodium Chloride 0.9% 100 ml @ 25 mls/hr IVPB Q8HR [facility] Rx# :[id number] Intake, IV Titration 104.737 215.543 20.614 Amount Norepinephrine 8 mg In 104.737 215.543 20.614 Sodium Chloride 0.9% 250 ml @ 0.03 MCG/KG/MIN 3. 947 mls/hr IV .Q24H [facility] Rx#:[id number] Output: Urine 1600 800 100 Other: Voiding Method Indwelling Catheter Indwelling Catheter Indwelling Catheter ABP, PAP, CO, CI - Last Documented Arterial Blood Pressure 108/51 - Exam In general patient is alert responsive maintained on BiPAP HEENT head normocephalic and atraumatic Neck is supple no JVD no goiter no lymphadenopathy no carotid bruit Chest examination reveals a scattered crackles bilaterally with mild wheezing Cardiac exam reveals regular heart sounds S1 and S2 no gallops no murmurs Abdomen is soft nontender no organomegaly with normal bowel sounds Extremity exam reveals no edema no cyanosis or clubbing, poor pulses peripherally Neurological examination reveals no gross focal deficits - Labs CBC & Chem 7: 01/14/22 05:07 01/14/22 05:07 Labs: Abnormal Lab Results - Last 24 Hours (Table) 01/14/22 01/14/22 Range/Units 05:07 05:07 Hgb 10.7 L (11.4-16.0) gm/dL Hct 33.6 L (34.0-46.0) % Neutrophils # 8.7 H (1.3-7.7) k/uL Lymphocytes # 0.5 L (1.0-4.8) k/uL Sodium 135 L (137-145) mmol/L Carbon Dioxide 32 H (22-30) mmol/L BUN 22 H (7-17) mg/dL Glucose 150 H (74-99) mg/dL Calcium 7.4 L (8.4-10.2) mg/dL Microbiology - Last 24 Hours (Table) 01/07/22 13:56 Blood Culture - Final Blood No Growth after 144 hours 01/07/22 13:56 Blood Culture - Final Blood No Growth after 144 hours Assessment and Plan Plan: Acute hypoxic respiratory failure Acute coronary 19 pneumonia Underlying history of chronic obstructive pulmonary disease Sepsis as evidenced by leukocytosis, tachycardia, mild elevation in lactic acid and hypotension Elevated d-dimer Acute kidney injury possibly related to dehydration and prerenal azotemia, will monitor kidney function Underlying history of hypertension Underlying history of hypothyroidism Chronic tobacco use patient smokes up to 2 packs per day At this time patient is admitted to intensive care unit Pulmonary, vascular surgery, and cardiology consultation requested Patient started on IV antibiotics, IV a Remdesevir, IV steroids and inhaled bronchodilators Patient was also started on IV heparin Medication and labs reviewed will follow closely Prognosis is guarded due to severity of illness
[2022-01-14] MEDS: ALPRAZolam 0.25 MG TAB PO PRN (19:37)
[2022-01-14] MEDS: risperiDONE 2 MG TAB PO SCH (19:37)
[2022-01-15 04:09] LABS: Basophils % (A) 0 %; Eosinophils % (A) 0 %; HCT 32.9 % (34.0-46.0); HGB 10.8 gm/dL (11.4-16.0); Hypochromasia Slight; Lymphocytes # (A) 0.5 k/uL (1.0-4.8); Lymphocytes % (A) 5 %; MCH 27.9 pg (25.0-35.0); MCHC 32.8 g/dL (31.0-37.0); MCV 85.2 fL (80.0-100.0); Monocytes # (A) 0.5 k/uL (0-1.0); Monocytes % (A) 5 %; Neutrophils # (A) 8.5 k/uL (1.3-7.7); Neutrophils % (A) 89 %; Platelet Count 394 k/uL (150-450); RBC 3.85 m/uL (3.80-5.40); RDW 14.5 % (11.5-15.5); WBC 9.5 k/uL (3.8-10.6)
[2022-01-15 04:28] LABS: ALT 28 U/L (4-34); AST 52 U/L (14-36); African American GFR (CKD) >90 (>60 ml/min/1.73 sqM); Alkaline Phosphatase 58 U/L (38-126); Anion Gap 0 mmol/L; Blood Urea Nitrogen 27 mg/dL (7-17); Calcium 7.6 mg/dL (8.4-10.2); Carbon Dioxide 30 mmol/L (22-30); Chloride 104 mmol/L (98-107); Glucose 145 mg/dL (74-99); Non-African American GFR(CKD) >90 (>60 ml/min/1.73 sqM); Sodium 134 mmol/L (137-145); Total Bilirubin 0.4 mg/dL (0.2-1.3); Total Protein 4.3 g/dL (6.3-8.2)
[2022-01-15] MEDS: LEVOTHYROXINE 88 MCG TAB PO SCH (06:49)
[2022-01-15] MEDS: SODIUM CHLORIDE 0.9% 1,000 ML IV SCH (06:50)
--- NOTE | 2022-01-15 07:21 | P.PN ---
Subjective Progress Note Date: 01/15/22 Principal diagnosis: Persistent atrial fibrillation The patient is a pleasant 76-year-old female patient was admitted to the hospital with COVID-19 infection with a pneumonia and we consulted to see the patient because of atrial fibrillation. January 142021 The patient was seen this morning. She seems to be overall stable from a cardiovascular standpoint of view. She remains in atrial fibrillation with overall controlled heart rate. Currently she is on oral anticoagulation. He went dynamically she is a stable as well as she's not requiring any vasopressors. From the cardiovascular standpoint of view, we'll continue the current medical regimen. She underwent an echo which revealed normal LV function. January 152019 The patient was evaluated this morning. She remains stable from the cardiovascular standpoint of view. She remains on isolation. She remains in atrial fibrillation with overall controlled heart rate. From a perivascular standpoint of view, would continue the current medical regimen including oral anticoagulation. The patient potentially Be transferred out of the intensive care unit. Please note that she underwent an echo which revealed normal ejection fraction was no significant valvular abnormalities Objective - Vital Signs Vital signs: Vital Signs Temp 97.9 F 01/15/22 00:00 Pulse 65 01/15/22 07:00 Resp 14 01/15/22 07:00 BP 110/59 01/15/22 07:00 Pulse Ox 92 L 01/15/22 07:00 FiO2 60 01/13/22 16:00 Intake & Output 01/14/22 01/15/22 01/15/22 18:59 06:59 18:59 Intake Total 399.114 276 Output Total 525 540 Balance -125.886 -264 Weight 69.1 kg 70.3 kg Intake: IV 376 276 0.9 Normal Saline @ 10mL/ 240 240 hr KVO 0.9NS Pressure Bag 36 36 Piperacillin-Tazobactam 3 100 .375 gm In Sodium Chloride 0.9% 100 ml @ 25 mls/hr IVPB Q8HR [facility] Rx# :[id number] Intake, IV Titration 23.114 Amount Norepinephrine 8 mg In 23.114 Sodium Chloride 0.9% 250 ml @ 0.03 MCG/KG/MIN 3. 947 mls/hr IV .Q24H [facility] Rx#:[id number] Output: Urine 525 540 Other: Voiding Method Indwelling Catheter Indwelling Catheter ABP, PAP, CO, CI - Last Documented Arterial Blood Pressure 108/43 - Constitutional General appearance: Present: no acute distress - Labs CBC & Chem 7: 01/15/22 04:00 01/15/22 04:00 Labs: Abnormal Lab Results - Last 24 Hours (Table) 01/14/22 01/15/22 01/15/22 Range/Units 05:07 04:00 04:00 Hgb 10.8 L (11.4-16.0) gm/dL Hct 32.9 L (34.0-46.0) % Neutrophils # 8.5 H (1.3-7.7) k/uL Lymphocytes # 0.5 L (1.0-4.8) k/uL Sodium 134 L (137-145) mmol/L BUN 27 H (7-17) mg/dL Glucose 145 H (74-99) mg/dL Calcium 7.6 L (8.4-10.2) mg/dL AST 52 H (14-36) U/L Total Protein 4.3 L (6.3-8.2) g/dL Albumin 2.0 L (3.5-5.0) g/dL Procalcitonin 0.23 H (0.02-0.09) ng/mL Assessment and Plan Assessment: Assessment #1 COVID-19 infection #2 persistent atrial fibrillation was controlled heart rate Plan #1 continue the current medical regimen #2 continue oral anticoagulation #3 follow-up with the patient #4 patient can be transferred out of the intensive care unit
[2022-01-15] MEDS: TIOTROPIUM 2.5 MCG INHALER INHALATION SCH (08:39)
[2022-01-15] MEDS: ALBUTEROL HFA INHALER INHALATION SCH ×4 (08:39→20:46)
[2022-01-15] MEDS: SYMBICORT 160-4.5 MCG INHALER INHALATION SCH ×2 (08:39→20:46)
[2022-01-15] MEDS: methylPREDNISolone SOD SUCCI 40 MG/ML 1 ML VIAL IV SCH ×3 (08:42→23:58)
[2022-01-15] MEDS: ZINC SULFATE 220 MG CAP PO SCH (08:42)
[2022-01-15] MEDS: PANTOPRAZOLE 40 MG/10 ML VIAL IV SCH (08:42)
[2022-01-15] MEDS: PIPERACILLIN-TAZOBACTAM 3.375 GM in SODIUM CHLORIDE 0.9% 100 ML IVPB SCH (08:42)
[2022-01-15] MEDS: ASCORBIC ACID 500 MG TAB PO SCH ×2 (08:42→20:11)
[2022-01-15] MEDS: APIXABAN 5 MG TAB PO SCH ×2 (08:42→20:11)
[2022-01-15] MEDS: CHOLECALCIFEROL 25 MCG (1000 IU) TABLET PO SCH (08:43)
[2022-01-15] MEDS: CITALOPRAM HYDROBROMIDE 10 MG TAB PO SCH (08:43)
--- NOTE | 2022-01-15 10:13 | P.PN ---
Subjective Progress Note Date: 01/15/22 This is a 76-year-old female who is not a great historian, her daughter is at bedside, patient is known to have history of hypothyroidism, COPD, history generalized anxiety disorder, patient has been weak for the last few days. According to the daughter, patient fell 4 days ago, and has been complaining of pain to her buttocks. Patient also had some intermittent cough, shortness of breath, and according to the daughter the patient has not been taking her medications including her thyroid medicine and her Combivent for COPD. Patient is a heavy smoker, she smoked 2 packs a day for many years. Does not use oxygen at home. Workup in the ER included a CBC which showed leukocytosis. Elevated d-dimer of 3.94. Abnormal renal profile with a BUN of 76 creatinine of 1.92 and low sodium of 129, elevated BNP level of 2580, normal troponin, and normal liver enzymes. Patient was also noted to have positive PCR for COVID-19, chest x-ray showed multifocal reticular markings and multifocal atypical infiltrates. Possible underlying pulmonary fibrosis. No old x-ray for comparison. Patient was also noted to be relatively hypotensive requiring fluid boluses with slight improvement of the blood pressure. I saw this patient in the ER, and I recommended admitting the patient to the ICU. In the meantime I ordered a high- resolution CT of the chest, started the patient on Remdesivir, patient is on 6 L nasal cannula, recommended fluid boluses, empiric antibiotics, pro-calcitonin level is pending, and order the COVID-19 cocktail. Reevaluated today on 01/08/22, patient remains in the ICU, her condition became a bit worse overnight, patient had to be placed on BiPAP, and she is now on BiPAP FiO2 of 50% IPAP 16 and EPAP of 6 I was able to cut down her FiO2 to 45% and her IPAP 10-14 EPAP remains at 6. Patient is requiring norepinephrine for low blood pressure, hence this is clearly a presentation of septic shock. Patient is requiring norepinephrine at 0.38 mcg/kg/m, her IV fluid went down to KVO after she received 4 L of fluids last night, felt that the patient was over hydrated, and her urine output picked up last night and I was notified about her worsening pulmonary status recommended Lasix dose earlier today with good response to the Lasix. Her creatinine is improving when down from 1.92-1.70 today. Bicarb remains low at 14 on him recommending a bicarb drip. Today I was able to establish a triple-lumen catheter and arterial line and the patient, her pro calcitonin was noted to be high at 5.47, patient was initially placed on vancomycin and Zosyn, blood cultures are negative so far, I'm recommending that we continue Zosyn, discontinue vancomycin, and recommending infectious disease consultation. I'm also recommending a CT of the lumbosacral spine since the patient has significant area of ecchymosis in the buttock area and low back. Apparently she fell 4 days ago. And she had significant amount of pain. The ER physician ordered a thoracic spine CT but did not address the lumbar spine area which seems to be the area of pain and the area of trauma. Patient remains on the COVID-19 cocktail. And I started the patient yesterday on Remdesivir. Since her symptoms were recent within the therapeutic window. WBC count is 20.2 hemoglobin is 12.5. Electrodes are normal except elevated potassium and that will improve with bicarbonate drip. Renal profile as noted earlier. Pro- calcitonin level is very high at 5.47 Reevaluated today on , patient remains in the ICU, remains on BiPAP, FiO2 40%, IPAP of 14 EPAP of 6. Remains on small dose of norepinephrine at 0.1 mcg/kg/m, patient remains on bicarb drip, I cut it down to 25 mL per hour today. Yesterday she had ultrasound of the gallbladder showing mostly cholelithiasis but no cholecystitis. Patient had negative CT of the lumbar spine. Remains on Zosyn empirically since her pro calcitonin level was quite high. She has better urine output, 35-50 mL per hour. Planning today to change from BiPAP possibly to airvo. Planning to gently diurese the patient, her chest x-ray is not showing much of a change in her bilateral interstitial infiltrates, and again I strongly suspect ongoing interstitial lung disease. WBC count 14.8 hemoglobin is 10.6, PTT is 73.7, patient remains on heparin. Basic metabolic profile is normal, BUN is 63 and creatinine 1.41. Reevaluated today on 01/10/22, patient remains in the ICU, remains on BiPAP, she is on 40% FiO2 IPAP of 12 EPAP of 5 Reed seems to be comfortable, and not in distress. Feeling better. Remains on heparin and she remains on norepinephrine at 0.1 mcg/kg/m. Today I am changes heparin to eliquis which she took on outpatient basis. Chest x-ray continues to show interstitial lung disease and interstitial infiltrates. Clinically the patient is feeling better. Her renal functioning is almost back to normal. Continues to have good urine output with diuresis. BUN is down to 60 creatinine is down to 1.12 patient remains on Remdesivir she remains on the COVID-19 cocktail. Reevaluated today on 01/11/22 patient remains in the ICU, she is now on airvo S 50% FiO2 and 60 L flow, saturating in the mid 90s, patient is still requiring n orepinephrine at 0.12 mcg/kg/m. Remains on her day #5 of Remdesivir, she is also on Decadron, eliquis, and multivitamins, patient is also on Zosyn for empiric treatment of superimposed bacterial infection/pneumonia considering that her pro calcitonin level was quite high on admission. Overall clinically the patient is improving but very slowly. WBC count is 7.5 hemoglobin is 10.7. Electrodes are normal renal profile is basically back to normal her creatinine is now 0.83. Reevaluated today on 02/08/22, patient remains in the ICU, remains relatively critically ill, patient is still requiring norepinephrine at 0.08 mcg/kg/m, patient remains on airvo at 55 L and 55% FiO2, chest x-ray is showing some worsening today with interstitial infiltrates, possible interstitial edema, hence I recommended a dose of Lasix 40 mg IV push, and the patient had significant urine output after the Lasix given. She remains on Decadron, she is also on eliquis, and she is on Zosyn. Her echocardiogram showed good LV function, however I am planning to keep the patient on the dry side considering her underlying COVID-19 pneumonia and her underlying interstitial lung disease. WBC count is 9 hemoglobin is 10.8 electrolytes are normal renal profile is normal, blood cultures remain negative. Pro-calcitonin level on admission was elevated. Reevaluated today on 01/13/22, patient remains in the ICU, remains critically ill, she remains on high flow oxygen via airflow, she is on 60% FiO2 and 60 L flow. Patient doesn't respond to diuretics quite well, however her chest x-ray is not showing much improvement, I strongly believe that we are dealing with COVID-19 pneumonia along with interstitial lung disease/pulmonary fibrosis. Not much of a change in the last 24 hours, patient is still on antibiotics empirically because of her pro calcitonin level was elevated, she is still on diuretics as needed, she still requiring norepinephrine at 0.05 mcg/kg/m. Patient remains marginal at best, and I have no plans to transfer the patient out of the ICU at this point yet. She may eventually require a PICC line placement she does have a central access test present but needs to be changed to a PICC line. The patient is seen today 01/14/2022 in follow-up in the intensive care unit. She was admitted back on 01/07/2022 for COPD exacerbation and COVID-19 19 pneumonia. She remains on 15 L high flow nasal cannula to maintain O2 saturations in the 90s. Normal saline at 20 ML's per hour. She is currently off norepinephrine. She has completed a course of Remdesivir. She remains on Symbicort, Spiriva, IV Solu-Medrol, Albuterol HFA, vitamin supplements. She remains on antibiotics in the form of Zosyn. She is anticoagulated with Eliquis. She has been slow to progress. Blood cultures revealed no growth. White count 9.6. Hemoglobin 10.7. Lymphocytes 0.5. Sodium 135. Potassium 4.2. BUN 22. Creatinine 0.58. Glucose 150. Follow-up pro calcitonin pending. The patient is seen today 01/15/2022 in follow-up in the intensive care unit. She is currently resting fairly comfortably in bed. Awake and alert. She is on 15 L high flow nasal cannula. She has normal sitting at 20 mL per hour. She was continued on Symbicort, albuterol, IV Solu-Medrol. Maintained on Zosyn. Continued on vitamin supplements. Eliquis for anticoagulation. Cultures revealed no growth. White count 9.5. Hemoglobin 10.8. Lymphocytes 0.5. Sodium 134. Potassium 4.0. BUN 27. Creatinine 0.57. Glucose 145. Procalcitonin 0.23. Objective - Vital Signs Vital signs: Vital Signs Temp 97.9 F 01/15/22 00:00 Pulse 65 01/15/22 07:00 Resp 14 01/15/22 07:00 BP 110/59 01/15/22 07:00 Pulse Ox 92 L 01/15/22 07:00 FiO2 60 01/13/22 16:00 Intake & Output 01/14/22 01/15/22 01/15/22 18:59 06:59 18:59 Intake Total 399.114 276 Output Total 525 540 Balance -125.886 -264 Weight 69.1 kg 70.3 kg Intake: IV 376 276 0.9 Normal Saline @ 10mL/ 240 240 hr KVO 0.9NS Pressure Bag 36 36 Piperacillin-Tazobactam 3 100 .375 gm In Sodium Chloride 0.9% 100 ml @ 25 mls/hr IVPB Q8HR [facility] Rx# :[id number] Intake, IV Titration 23.114 Amount Norepinephrine 8 mg In 23.114 Sodium Chloride 0.9% 250 ml @ 0.03 MCG/KG/MIN 3. 947 mls/hr IV .Q24H [facility] Rx#:[id number] Output: Urine 525 540 Other: Voiding Method Indwelling Catheter Indwelling Catheter ABP, PAP, CO, CI - Last Documented Arterial Blood Pressure 108/43 - Exam GENERAL EXAM: Alert, frail, 76-year-old female, on 15 L high flow nasal cannula, fairly comfortable in no apparent distress. HEAD: Normocephalic. EYES: Normal reaction of pupils, equal size. NOSE: Clear with pink turbinates. THROAT: No erythema or exudates. NECK: No masses, no JVD. CHEST: No chest wall deformity. LUNGS: Equal air entry with crackles in the bilateral bases. CVS: S1 and S2 normal with no audible murmur, irregular rhythm. ABDOMEN: No hepatosplenomegaly, normal bowel sounds, no guarding or rigidity. SPINE: No scoliosis or deformity SKIN: No rashes. Ecchymosis of the lower lumbar sacral area due to previous fall CENTRAL NERVOUS SYSTEM: No focal deficits, tone is normal in all 4 extremities. EXTREMITIES: There is no peripheral edema. No clubbing, no cyanosis. Peripheral pulses are intact. - Labs CBC & Chem 7: 01/15/22 04:00 01/15/22 04:00 Labs: Abnormal Lab Results - Last 24 Hours (Table) 12/05/22 12/06/22 12/06/22 Range/Units 05:07 04:00 04:00 Hgb 10.8 L (11.4-16.0) gm/dL Hct 32.9 L (34.0-46.0) % Neutrophils # 8.5 H (1.3-7.7) k/uL Lymphocytes # 0.5 L (1.0-4.8) k/uL Sodium 134 L (137-145) mmol/L BUN 27 H (7-17) mg/dL Glucose 145 H (74-99) mg/dL Calcium 7.6 L (8.4-10.2) mg/dL AST 52 H (14-36) U/L Total Protein 4.3 L (6.3-8.2) g/dL Albumin 2.0 L (3.5-5.0) g/dL Procalcitonin 0.23 H (0.02-0.09) ng/mL Assessment and Plan Assessment: Acute hypoxic respiratory failure secondary to acute COVID-19 pneumonia, underlying bacterial pneumonia is very likely considering her chest x-ray findings and considering elevated pro calcitonin level. Completed a course of Zosyn. Possible interstitial lung disease/pulmonary fibrosis, likely contributing to her acute hypoxic respiratory failure Hypotension, secondary to sepsis/septic shock, septic and hypovolemic shock, currently off norepinephrine History of underlying COPD does not seem to be active at this point. But likely contributing to her hypoxic respiratory failure History of hypothyroidism History of generalized anxiety disorder Elevated d-dimer but negative venous Doppler for DVT, cannot perform CT angiogram of the chest mostly because of her renal functioning Acute dehydration Acute kidney injury secondary to dehydration Paroxysmal atrial fibrillation, anticoagulated with Eliquis Plan: The patient was seen and evaluated Medications and labs reviewed Discontinue Zosyn Titrate the FiO2 as tolerated Follow-up chest x-ray in the a.m. Prognosis is guarded DO NOT RESUSCITATE/DO NOT INTUBATE CODE STATUS We will continue to follow I have personally seen and examined the patient, performed the documentation and the assessment and plan as written. Number of minutes spent on the visit: 10.
--- NOTE | 2022-01-15 17:39 | P.PN ---
Subjective Progress Note Date: 01/15/22 Samantha Brown, is a 76-year-old female who presented to [facility] emergency room with a chief complaint of generalized weakness, patient's daughter reported in the emergency room that her mother had a fall 4 days prior to presentation She was evaluated in the emergency room vital examination on presentation revealed Laboratory data revealed a white blood count of 14.4 hemoglobin 12.2 platelet count 476 INR 1.2 d-dimer 3.94 sodium 129 potassium 5.1 chloride 99 CO2 23 BUN 76 creatinine 1.92 lactic acid 1.7 Corps on a virus PCR was positive Testing in the emergency room revealed chest x-ray done in emergency room revealed small bilateral pleural effusions and multifocal areas of increased reticular markings, EKG revealed atrial fibrillation with a heart rate of 86 Patient was admitted to medical floor for further evaluation and treatment. Past medical history is significant for history of hypertension, history of hyperlipidemia, history of hypothyroidism, and history of tobacco use patient smokes 2 packs per day On 01/08/2022 patient was seen and examined in the ICU she is alert responsive in mild distress due to shortness of breath, she was started on BiPAP during the night, she is maintained on norepinephrine for pressure support, she is also maintained on IV antibiotic Zosyn, input from cardiology and pulmonary review, patient's daughter Pily contacted over the phone and all questions answered to her satisfaction. On 01/09/2022 patient remains in the intensive care unit slightly improved. Patient remains on BiPAP. Creatinine improving to 1.41 bun 63. Patient remains on IV heparin. Patient also remains on sodium bicarb current vital signs heart rate 88, respiratory rate 19, blood pressure 108/51 patient satting 93% on BiPAP 40% FiO2. On 01/10/2022 patient was seen and examined in the ICU she is alert responsive in no apparent distress she is maintained on BiPAP, she is stating that her shortness of breath is improving she denies any chest pain there is no nausea or vomiting no abdominal pain no diarrhea and no urinary symptoms, however white blood count is 11 hemoglobin 10.8, BUN 60 creatinine 1.12 On 01/11/2022 patient was seen and examined in the ICU she is alert responsive in no apparent distress BiPAP was discontinued and patient was started on Airvo high flow oxygen she is still maintained on levophed for pressure support and this is being weaned down gradually. White blood count is down today to 7.5 BUN down to 45 creatinine 0.83 patient denies any chest pain or shortness of breath is improving, she is receiving IV antibiotic Zosyn she is also receiving Remdesevir for Covid-19 On 01/12/22, patient was seen and examined in the ICU, she is alert and oriented x 3, patient remains on airvo 55% FiO2, chest x-ray is showing some worsening today with interstitial infiltrates, possible interstitial edema. She remains on Decadron, she is also on eliquis, and she is on Zosyn. patient is still requiring norepinephrine On 01/13/2022 patient remains in the intensive care unit. Patient did require higher levels of irritable last night per nursing staff but is back down to 55%. Steroids were increased per pulmonary and critical care. Current vital signs temp 98.6, heart rate 75, respiratory rate 23, blood pressure 107/71 patient currently on 60% airflow satting 98% On 01/14/2022 patient was seen and examined in the ICU she is alert and oriented 3 in no apparent distress she is still maintained on high flow oxygen there is no fever or chills no headache or dizziness no chest pain she has occasional cough no nausea or vomiting no abdominal pain no diarrhea no blood in the stools, no urinary symptoms Wren catheter is in. On 01/15/2022 patient was seen and examined in the ICU she is alert and responsive in no apparent distress she is maintained on high flow oxygen at 15 L/m via nasal cannula there is no fever or chills no headache or dizziness no chest pain she has shortness of breath with any activity and occasional cough no nausea or vomiting no abdominal pain no diarrhea and no urinary symptoms is ma intained on IV Zosyn inhaled bronchodilators, inhaled steroids, and Eliquis, she is off pressure support at this time Objective - Vital Signs Vital signs: Vital Signs Temp 97.9 F 01/15/22 00:00 Pulse 65 01/15/22 07:00 Resp 14 01/15/22 07:00 BP 110/59 01/15/22 07:00 Pulse Ox 92 L 01/15/22 07:00 FiO2 60 01/13/22 16:00 Intake & Output 01/14/22 01/15/22 01/15/22 18:59 06:59 18:59 Intake Total 399.114 276 Output Total 525 540 Balance -125.886 -264 Weight 69.1 kg 70.3 kg Intake: IV 376 276 0.9 Normal Saline @ 10mL/ 240 240 hr KVO 0.9NS Pressure Bag 36 36 Piperacillin-Tazobactam 3 100 .375 gm In Sodium Chloride 0.9% 100 ml @ 25 mls/hr IVPB Q8HR [facility] Rx# :[id number] Intake, IV Titration 23.114 Amount Norepinephrine 8 mg In 23.114 Sodium Chloride 0.9% 250 ml @ 0.03 MCG/KG/MIN 3. 947 mls/hr IV .Q24H [facility] Rx#:[id number] Output: Urine 525 540 Other: Voiding Method Indwelling Catheter Indwelling Catheter ABP, PAP, CO, CI - Last Documented Arterial Blood Pressure 108/43 - Exam In general patient is alert responsive maintained on BiPAP HEENT head normocephalic and atraumatic Neck is supple no JVD no goiter no lymphadenopathy no carotid bruit Chest examination reveals a scattered crackles bilaterally with mild wheezing Cardiac exam reveals regular heart sounds S1 and S2 no gallops no murmurs Abdomen is soft nontender no organomegaly with normal bowel sounds Extremity exam reveals no edema no cyanosis or clubbing, poor pulses peripherally Neurological examination reveals no gross focal deficits - Labs CBC & Chem 7: 01/15/22 04:00 01/15/22 04:00 Labs: Abnormal Lab Results - Last 24 Hours (Table) 01/14/22 01/15/22 01/15/22 Range/Units 05:07 04:00 04:00 Hgb 10.8 L (11.4-16.0) gm/dL Hct 32.9 L (34.0-46.0) % Neutrophils # 8.5 H (1.3-7.7) k/uL Lymphocytes # 0.5 L (1.0-4.8) k/uL Sodium 134 L (137-145) mmol/L BUN 27 H (7-17) mg/dL Glucose 145 H (74-99) mg/dL Calcium 7.6 L (8.4-10.2) mg/dL AST 52 H (14-36) U/L Total Protein 4.3 L (6.3-8.2) g/dL Albumin 2.0 L (3.5-5.0) g/dL Procalcitonin 0.23 H (0.02-0.09) ng/mL Assessment and Plan Plan: Acute hypoxic respiratory failure Acute coronary 19 pneumonia Underlying history of chronic obstructive pulmonary disease Sepsis as evidenced by leukocytosis, tachycardia, mild elevation in lactic acid and hypotension Elevated d-dimer Acute kidney injury possibly related to dehydration and prerenal azotemia, will monitor kidney function Underlying history of hypertension Underlying history of hypothyroidism Chronic tobacco use patient smokes up to 2 packs per day At this time patient is admitted to intensive care unit Pulmonary, vascular surgery, and cardiology consultation requested Patient started on IV antibiotics, IV a Remdesevir, IV steroids and inhaled bronchodilators Patient was also started on IV heparin Medication and labs reviewed will follow closely Prognosis is guarded due to severity of illness
[2022-01-15] MEDS: risperiDONE 2 MG TAB PO SCH (20:11)
[2022-01-15] MEDS: ALPRAZolam 0.25 MG TAB PO PRN (20:11)
[2022-01-16] MEDS: SODIUM CHLORIDE 0.9% 1,000 ML IV SCH (06:12)
[2022-01-16] MEDS: LEVOTHYROXINE 75 MCG TAB PO SCH (06:12)
--- NOTE | 2022-01-16 07:46 | P.PN ---
Subjective Progress Note Date: 01/16/22 Principal diagnosis: Persistent atrial fibrillation The patient is a pleasant 76-year-old female patient was admitted to the hospital with COVID-19 infection with a pneumonia and we consulted to see the patient because of atrial fibrillation. January 142021 The patient was seen this morning. She seems to be overall stable from a cardiovascular standpoint of view. She remains in atrial fibrillation with overall controlled heart rate. Currently she is on oral anticoagulation. He went dynamically she is a stable as well as she's not requiring any vasopressors. From the cardiovascular standpoint of view, we'll continue the current medical regimen. She underwent an echo which revealed normal LV function. January 152021 The patient was evaluated this morning. She remains stable from the cardiovascular standpoint of view. She remains on isolation. She remains in atrial fibrillation with overall controlled heart rate. From a perivascular standpoint of view, would continue the current medical regimen including oral anticoagulation. The patient potentially Be transferred out of the intensive care unit. Please note that she underwent an echo which revealed normal ejection fraction was no significant valvular abnormalities January 162021 The patient was seen and evaluated this morning. The patient remains in atrial fibrillation/flutter was overall controlled heart rate in April any low blood pressure. She remains asymptomatic. From a perivascular standpoint of view, we'll continue the current medical regimen and follow-up with the patient on when necessary case Objective - Vital Signs Vital signs: Vital Signs Temp 97.7 F 01/16/22 04:00 Pulse 53 L 01/16/22 07:00 Resp 17 01/16/22 07:00 BP 89/63 01/16/22 07:00 Pulse Ox 90 L 01/16/22 07:00 FiO2 60 01/13/22 16:00 Intake & Output 01/15/22 01/16/22 01/16/22 18:59 06:59 18:59 Intake Total 376 253 23 Output Total 440 550 Balance -64 -297 23 Weight 70.6 kg Intake: IV 376 253 23 0.9 Normal Saline @ 10mL/ 240 220 20 hr KVO 0.9NS Pressure Bag 36 33 3 Piperacillin-Tazobactam 3 100 .375 gm In Sodium Chloride 0.9% 100 ml @ 25 mls/hr IVPB Q8HR [facility] Rx# :[id number] Output: Urine 440 550 Other: Voiding Method Indwelling Catheter Indwelling Catheter ABP, PAP, CO, CI - Last Documented Arterial Blood Pressure 110/53 - Constitutional General appearance: Present: no acute distress - Labs CBC & Chem 7: 01/15/22 04:00 01/15/22 04:00 Assessment and Plan Assessment: Assessment #1 COVID-19 infection #2 persistent atrial fibrillation was controlled heart rate Plan #1 continue the current medical regimen #2 continue oral anticoagulation #3 follow-up with the patient #4 patient can be transferred out of the intensive care unit #5 follow-up with the patient on when necessary case
--- NOTE | 2022-01-16 08:12 | XR ---
EXAMINATION TYPE: XR chest 1V portable DATE OF EXAM: 01/16/2022 5:30 AM COMPARISON: Chest radiograph from 01/13/2022. TECHNIQUE: XR chest 1V portable Portable AP radiograph of the chest. CLINICAL INDICATION:Female, 76 years old with history of CoVID pneumonia; FINDINGS: Lungs/Pleura: Similar multifocal airspace opacities. No evidence of pneumothorax. There is blunting o f the costophrenic angles. Pulmonary vascularity: Unremarkable. Heart/mediastinum: Cardiomediastinal silhouette is unremarkable. Musculoskeletal: No acute osseous pathology. IMPRESSION: 1. Similar multifocal airspace opacities. 2. Trace bilateral pleural effusions.
--- NOTE | 2022-01-16 09:38 | P.PN ---
Subjective Progress Note Date: 01/16/22 This is a 76-year-old female who is not a great historian, her daughter is at bedside, patient is known to have history of hypothyroidism, COPD, history generalized anxiety disorder, patient has been weak for the last few days. According to the daughter, patient fell 4 days ago, and has been complaining of pain to her buttocks. Patient also had some intermittent cough, shortness of breath, and according to the daughter the patient has not been taking her medications including her thyroid medicine and her Combivent for COPD. Patient is a heavy smoker, she smoked 2 packs a day for many years. Does not use oxygen at home. Workup in the ER included a CBC which showed leukocytosis. Elevated d-dimer of 3.94. Abnormal renal profile with a BUN of 76 creatinine of 1.92 and low sodium of 129, elevated BNP level of 2580, normal troponin, and normal liver enzymes. Patient was also noted to have positive PCR for COVID-19, chest x-ray showed multifocal reticular markings and multifocal atypical infiltrates. Possible underlying pulmonary fibrosis. No old x-ray for comparison. Patient was also noted to be relatively hypotensive requiring fluid boluses with slight improvement of the blood pressure. I saw this patient in the ER, and I recommended admitting the patient to the ICU. In the meantime I ordered a high- resolution CT of the chest, started the patient on Remdesivir, patient is on 6 L nasal cannula, recommended fluid boluses, empiric antibiotics, pro-calcitonin level is pending, and order the COVID-19 cocktail. Reevaluated today on 01/08/22, patient remains in the ICU, her condition became a bit worse overnight, patient had to be placed on BiPAP, and she is now on BiPAP FiO2 of 50% IPAP 16 and EPAP of 6 I was able to cut down her FiO2 to 45% and her IPAP 10-14 EPAP remains at 6. Patient is requiring norepinephrine for low blood pressure, hence this is clearly a presentation of septic shock. Patient is requiring norepinephrine at 0.38 mcg/kg/m, her IV fluid went down to KVO after she received 4 L of fluids last night, felt that the patient was over hydrated, and her urine output picked up last night and I was notified about her worsening pulmonary status recommended Lasix dose earlier today with good response to the Lasix. Her creatinine is improving when down from 1.92-1.70 today. Bicarb remains low at 14 on him recommending a bicarb drip. Today I was able to establish a triple-lumen catheter and arterial line and the patient, her pro calcitonin was noted to be high at 5.47, patient was initially placed on vancomycin and Zosyn, blood cultures are negative so far, I'm recommending that we continue Zosyn, discontinue vancomycin, and recommending infectious disease consultation. I'm also recommending a CT of the lumbosacral spine since the patient has significant area of ecchymosis in the buttock area and low back. Apparently she fell 4 days ago. And she had significant amount of pain. The ER physician ordered a thoracic spine CT but did not address the lumbar spine area which seems to be the area of pain and the area of trauma. Patient remains on the COVID-19 cocktail. And I started the patient yesterday on Remdesivir. Since her symptoms were recent within the therapeutic window. WBC count is 20.2 hemoglobin is 12.5. Electrodes are normal except elevated potassium and that will improve with bicarbonate drip. Renal profile as noted earlier. Pro- calcitonin level is very high at 5.47 Reevaluated today on , patient remains in the ICU, remains on BiPAP, FiO2 40%, IPAP of 14 EPAP of 6. Remains on small dose of norepinephrine at 0.1 mcg/kg/m, patient remains on bicarb drip, I cut it down to 25 mL per hour today. Yesterday she had ultrasound of the gallbladder showing mostly cholelithiasis but no cholecystitis. Patient had negative CT of the lumbar spine. Remains on Zosyn empirically since her pro calcitonin level was quite high. She has better urine output, 35-50 mL per hour. Planning today to change from BiPAP possibly to airvo. Planning to gently diurese the patient, her chest x-ray is not showing much of a change in her bilateral interstitial infiltrates, and again I strongly suspect ongoing interstitial lung disease. WBC count 14.8 hemoglobin is 10.6, PTT is 73.7, patient remains on heparin. Basic metabolic profile is normal, BUN is 63 and creatinine 1.41. Reevaluated today on 01/10/22, patient remains in the ICU, remains on BiPAP, she is on 40% FiO2 IPAP of 12 EPAP of 5 Reed seems to be comfortable, and not in distress. Feeling better. Remains on heparin and she remains on norepinephrine at 0.1 mcg/kg/m. Today I am changes heparin to eliquis which she took on outpatient basis. Chest x-ray continues to show interstitial lung disease and interstitial infiltrates. Clinically the patient is feeling better. Her renal functioning is almost back to normal. Continues to have good urine output with diuresis. BUN is down to 60 creatinine is down to 1.12 patient remains on Remdesivir she remains on the COVID-19 cocktail. Reevaluated today on 01/11/22 patient remains in the ICU, she is now on airvo S 50% FiO2 and 60 L flow, saturating in the mid 90s, patient is still requiring n orepinephrine at 0.12 mcg/kg/m. Remains on her day #5 of Remdesivir, she is also on Decadron, eliquis, and multivitamins, patient is also on Zosyn for empiric treatment of superimposed bacterial infection/pneumonia considering that her pro calcitonin level was quite high on admission. Overall clinically the patient is improving but very slowly. WBC count is 7.5 hemoglobin is 10.7. Electrodes are normal renal profile is basically back to normal her creatinine is now 0.83. Reevaluated today on 02/08/22, patient remains in the ICU, remains relatively critically ill, patient is still requiring norepinephrine at 0.08 mcg/kg/m, patient remains on airvo at 55 L and 55% FiO2, chest x-ray is showing some worsening today with interstitial infiltrates, possible interstitial edema, hence I recommended a dose of Lasix 40 mg IV push, and the patient had significant urine output after the Lasix given. She remains on Decadron, she is also on eliquis, and she is on Zosyn. Her echocardiogram showed good LV function, however I am planning to keep the patient on the dry side considering her underlying COVID-19 pneumonia and her underlying interstitial lung disease. WBC count is 9 hemoglobin is 10.8 electrolytes are normal renal profile is normal, blood cultures remain negative. Pro-calcitonin level on admission was elevated. Reevaluated today on 01/13/22, patient remains in the ICU, remains critically ill, she remains on high flow oxygen via airflow, she is on 60% FiO2 and 60 L flow. Patient doesn't respond to diuretics quite well, however her chest x-ray is not showing much improvement, I strongly believe that we are dealing with COVID-19 pneumonia along with interstitial lung disease/pulmonary fibrosis. Not much of a change in the last 24 hours, patient is still on antibiotics empirically because of her pro calcitonin level was elevated, she is still on diuretics as needed, she still requiring norepinephrine at 0.05 mcg/kg/m. Patient remains marginal at best, and I have no plans to transfer the patient out of the ICU at this point yet. She may eventually require a PICC line placement she does have a central access test present but needs to be changed to a PICC line. The patient is seen today 01/14/2022 in follow-up in the intensive care unit. She was admitted back on 01/07/2022 for COPD exacerbation and COVID-19 19 pneumonia. She remains on 15 L high flow nasal cannula to maintain O2 saturations in the 90s. Normal saline at 20 ML's per hour. She is currently off norepinephrine. She has completed a course of Remdesivir. She remains on Symbicort, Spiriva, IV Solu-Medrol, Albuterol HFA, vitamin supplements. She remains on antibiotics in the form of Zosyn. She is anticoagulated with Eliquis. She has been slow to progress. Blood cultures revealed no growth. White count 9.6. Hemoglobin 10.7. Lymphocytes 0.5. Sodium 135. Potassium 4.2. BUN 22. Creatinine 0.58. Glucose 150. Follow-up pro calcitonin pending. The patient is seen today 01/15/2022 in follow-up in the intensive care unit. She is currently resting fairly comfortably in bed. Awake and alert. She is on 15 L high flow nasal cannula. She has normal sitting at 20 mL per hour. She was continued on Symbicort, albuterol, IV Solu-Medrol. Maintained on Zosyn. Continued on vitamin supplements. Eliquis for anticoagulation. Cultures revealed no growth. White count 9.5. Hemoglobin 10.8. Lymphocytes 0.5. Sodium 134. Potassium 4.0. BUN 27. Creatinine 0.57. Glucose 145. Procalcitonin 0.23. The patient is seen today 01/16/2022 in follow-up in the intensive care unit. She is a regular medical floor overflow. She is awake and alert in no acute distress. She is resting comfortably in bed. She is still requiring 15 L high flow nasal cannula to maintain O2 saturation in the 90s. She has normal saline at 20 ML's per hour.chest x-ray continues to show similar multifocal airspace opacities. Trace bilateral effusions. cultures revealed no growth. She completed a course of Zosyn. She was continued on vitamin supplements, IV Solu- Medrol, Symbicort, Spiriva, albuterol. Anticoagulated with Eliquis. Objective - Vital Signs Vital signs: Vital Signs Temp 97.7 F 01/16/22 04:00 Pulse 53 L 01/16/22 07:00 Resp 17 01/16/22 07:00 BP 89/63 01/16/22 07:00 Pulse Ox 90 L 01/16/22 07:00 FiO2 60 01/13/22 16:00 Intake & Output 01/15/22 01/16/22 01/16/22 18:59 06:59 18:59 Intake Total 376 253 23 Output Total 440 550 Balance -64 -297 23 Weight 70.6 kg Intake: IV 376 253 23 0.9 Normal Saline @ 10mL/ 240 220 20 hr KVO 0.9NS Pressure Bag 36 33 3 Piperacillin-Tazobactam 3 100 .375 gm In Sodium Chloride 0.9% 100 ml @ 25 mls/hr IVPB Q8HR [facility] Rx# :[id number] Output: Urine 440 550 Other: Voiding Method Indwelling Catheter Indwelling Catheter ABP, PAP, CO, CI - Last Documented Arterial Blood Pressure 110/53 - Exam GENERAL EXAM: Alert, frail, 76-year-old female, on 15 L high flow nasal cannula, fairly comfortable in no apparent distress. HEAD: Normocephalic. EYES: Normal reaction of pupils, equal size. NOSE: Clear with pink turbinates. THROAT: No erythema or exudates. NECK: No masses, no JVD. CHEST: No chest wall deformity. LUNGS: Equal air entry with crackles in the bilateral bases. CVS: S1 and S2 normal with no audible murmur, irregular rhythm. ABDOMEN: No hepatosplenomegaly, normal bowel sounds, no guarding or rigidity. SPINE: No scoliosis or deformity SKIN: No rashes. Ecchymosis of the lower lumbar sacral area due to previous fall CENTRAL NERVOUS SYSTEM: No focal deficits, tone is normal in all 4 extremities. EXTREMITIES: There is no peripheral edema. No clubbing, no cyanosis. Peripheral pulses are intact. - Labs CBC & Chem 7: 01/15/22 04:00 01/15/22 04:00 Assessment and Plan Assessment: Acute hypoxic respiratory failure secondary to acute COVID-19 pneumonia, underlying bacterial pneumonia is very likely considering her chest x-ray findings and considering elevated pro calcitonin level. Completed a course of Zosyn. Possible interstitial lung disease/pulmonary fibrosis, likely contributing to her acute hypoxic respiratory failure Hypotension, secondary to sepsis/septic shock, septic and hypovolemic shock, currently off norepinephrine History of underlying COPD does not seem to be active at this point. But likely contributing to her hypoxic respiratory failure History of hypothyroidism History of generalized anxiety disorder Elevated d-dimer but negative venous Doppler for DVT, cannot perform CT angiogram of the chest mostly because of her renal functioning Acute dehydration Acute kidney injury secondary to dehydration Paroxysmal atrial fibrillation, anticoagulated with Eliquis Plan: The patient was seen and evaluated Chest x-ray, medications and labs reviewed Titrate the FiO2 as tolerated Prognosis is guarded MedSurg overflow DO NOT RESUSCITATE/DO NOT INTUBATE CODE STATUS We will continue to follow I have personally seen and examined the patient, performed the documentation and the assessment and plan as written. Number of minutes spent on the visit: 10.
[2022-01-16] MEDS: ALBUTEROL HFA INHALER INHALATION SCH ×4 (09:50→21:09)
[2022-01-16] MEDS: SYMBICORT 160-4.5 MCG INHALER INHALATION SCH ×2 (09:50→21:09)
[2022-01-16] MEDS: CHOLECALCIFEROL 25 MCG (1000 IU) TABLET PO SCH (10:19)
[2022-01-16] MEDS: PANTOPRAZOLE 40 MG/10 ML VIAL IV SCH (10:19)
[2022-01-16] MEDS: methylPREDNISolone SOD SUCCI 40 MG/ML 1 ML VIAL IV SCH ×3 (10:19→23:33)
[2022-01-16] MEDS: ASCORBIC ACID 500 MG TAB PO SCH ×2 (10:21→21:36)
[2022-01-16] MEDS: APIXABAN 5 MG TAB PO SCH ×2 (10:21→21:36)
[2022-01-16] MEDS: CITALOPRAM HYDROBROMIDE 10 MG TAB PO SCH (10:22)
[2022-01-16] MEDS: ZINC SULFATE 220 MG CAP PO SCH (10:23)
--- NOTE | 2022-01-16 10:34 | P.PN ---
Subjective Progress Note Date: 01/16/22 Samantha Brown, is a 76-year-old female who presented to [facility] emergency room with a chief complaint of generalized weakness, patient's daughter reported in the emergency room that her mother had a fall 4 days prior to presentation She was evaluated in the emergency room vital examination on presentation revealed Laboratory data revealed a white blood count of 14.4 hemoglobin 12.2 platelet count 476 INR 1.2 d-dimer 3.94 sodium 129 potassium 5.1 chloride 99 CO2 23 BUN 76 creatinine 1.92 lactic acid 1.7 Corps on a virus PCR was positive Testing in the emergency room revealed chest x-ray done in emergency room revealed small bilateral pleural effusions and multifocal areas of increased reticular markings, EKG revealed atrial fibrillation with a heart rate of 86 Patient was admitted to medical floor for further evaluation and treatment. Past medical history is significant for history of hypertension, history of hyperlipidemia, history of hypothyroidism, and history of tobacco use patient smokes 2 packs per day On 01/08/2022 patient was seen and examined in the ICU she is alert responsive in mild distress due to shortness of breath, she was started on BiPAP during the night, she is maintained on norepinephrine for pressure support, she is also maintained on IV antibiotic Zosyn, input from cardiology and pulmonary review, patient's daughter Pily contacted over the phone and all questions answered to her satisfaction. On 01/09/2022 patient remains in the intensive care unit slightly improved. Patient remains on BiPAP. Creatinine improving to 1.41 bun 63. Patient remains on IV heparin. Patient also remains on sodium bicarb current vital signs heart rate 88, respiratory rate 19, blood pressure 108/51 patient satting 93% on BiPAP 40% FiO2. On 01/10/2022 patient was seen and examined in the ICU she is alert responsive in no apparent distress she is maintained on BiPAP, she is stating that her shortness of breath is improving she denies any chest pain there is no nausea or vomiting no abdominal pain no diarrhea and no urinary symptoms, however white blood count is 11 hemoglobin 10.8, BUN 60 creatinine 1.12 On 01/11/2022 patient was seen and examined in the ICU she is alert responsive in no apparent distress BiPAP was discontinued and patient was started on Airvo high flow oxygen she is still maintained on levophed for pressure support and this is being weaned down gradually. White blood count is down today to 7.5 BUN down to 45 creatinine 0.83 patient denies any chest pain or shortness of breath is improving, she is receiving IV antibiotic Zosyn she is also receiving Remdesevir for Covid-19 On 01/12/22, patient was seen and examined in the ICU, she is alert and oriented x 3, patient remains on airvo 55% FiO2, chest x-ray is showing some worsening today with interstitial infiltrates, possible interstitial edema. She remains on Decadron, she is also on eliquis, and she is on Zosyn. patient is still requiring norepinephrine On 01/13/2022 patient remains in the intensive care unit. Patient did require higher levels of irritable last night per nursing staff but is back down to 55%. Steroids were increased per pulmonary and critical care. Current vital signs temp 98.6, heart rate 75, respiratory rate 23, blood pressure 107/71 patient currently on 60% airflow satting 98% On 01/14/2022 patient was seen and examined in the ICU she is alert and oriented 3 in no apparent distress she is still maintained on high flow oxygen there is no fever or chills no headache or dizziness no chest pain she has occasional cough no nausea or vomiting no abdominal pain no diarrhea no blood in the stools, no urinary symptoms Wren catheter is in. On 01/15/2022 patient was seen and examined in the ICU she is alert and responsive in no apparent distress she is maintained on high flow oxygen at 15 L/m via nasal cannula there is no fever or chills no headache or dizziness no chest pain she has shortness of breath with any activity and occasional cough no nausea or vomiting no abdominal pain no diarrhea and no urinary symptoms is ma intained on IV Zosyn inhaled bronchodilators, inhaled steroids, and Eliquis, she is off pressure support at this time On 01/16/2022 patient remains in the intensive care unit. Patient remains on high flow 15 L. Patient remains off pressure support medication at this time. Current vital signs temp 97.7 heart rate 57, respiratory rate 17, blood pressure 100/62 sitting 90% on 15 L. Objective - Vital Signs Vital signs: Vital Signs Temp 97.7 F 01/16/22 04:00 Pulse 53 L 01/16/22 07:00 Resp 17 01/16/22 07:00 BP 89/63 01/16/22 07:00 Pulse Ox 90 L 01/16/22 07:00 FiO2 60 01/13/22 16:00 Intake & Output 01/15/22 01/16/22 01/16/22 18:59 06:59 18:59 Intake Total 376 253 23 Output Total 440 550 Balance -64 -297 23 Weight 70.6 kg Intake: IV 376 253 23 0.9 Normal Saline @ 10mL/ 240 220 20 hr KVO 0.9NS Pressure Bag 36 33 3 Piperacillin-Tazobactam 3 100 .375 gm In Sodium Chloride 0.9% 100 ml @ 25 mls/hr IVPB Q8HR [facility] Rx# :[id number] Output: Urine 440 550 Other: Voiding Method Indwelling Catheter Indwelling Catheter ABP, PAP, CO, CI - Last Documented Arterial Blood Pressure 110/53 - Exam In general patient is alert responsive maintained on BiPAP HEENT head normocephalic and atraumatic Neck is supple no JVD no goiter no lymphadenopathy no carotid bruit Chest examination reveals a scattered crackles bilaterally with mild wheezing Cardiac exam reveals regular heart sounds S1 and S2 no gallops no murmurs Abdomen is soft nontender no organomegaly with normal bowel sounds Extremity exam reveals no edema no cyanosis or clubbing, poor pulses peripherally Neurological examination reveals no gross focal deficits - Labs CBC & Chem 7: 01/15/22 04:00 01/15/22 04:00 Assessment and Plan Plan: Acute hypoxic respiratory failure Acute coronary 19 pneumonia Underlying history of chronic obstructive pulmonary disease Sepsis as evidenced by leukocytosis, tachycardia, mild elevation in lactic acid and hypotension Elevated d-dimer Acute kidney injury possibly related to dehydration and prerenal azotemia, will monitor kidney function Underlying history of hypertension Underlying history of hypothyroidism Chronic tobacco use patient smokes up to 2 packs per day Persistent atrial fibrillation with controlled heart rate patient has been switched to oral anticoagulation with eliquis At this time patient is admitted to intensive care unit Pulmonary, vascular surgery, and cardiology consultation requested Patient started on IV antibiotics, IV a Remdesevir, IV steroids and inhaled br onchodilators Medication and labs reviewed will follow closely Prognosis is guarded due to severity of illness
[2022-01-16] MEDS: TIOTROPIUM 2.5 MCG INHALER INHALATION SCH (12:20)
[2022-01-16] MEDS: risperiDONE 2 MG TAB PO SCH (21:36)
[2022-01-17] MEDS: LEVOTHYROXINE 88 MCG TAB PO SCH (06:03)
[2022-01-17] MEDS: SODIUM CHLORIDE 0.9% 1,000 ML IV SCH (06:04)
[2022-01-17 06:24] LABS: Basophils % (A) 0 %; Eosinophils % (A) 0 %; HCT 34.1 % (34.0-46.0); HGB 10.7 gm/dL (11.4-16.0); Hypochromasia Slight; Lymphocytes # (A) 0.5 k/uL (1.0-4.8); Lymphocytes % (A) 5 %; MCH 27.3 pg (25.0-35.0); MCHC 31.5 g/dL (31.0-37.0); MCV 86.8 fL (80.0-100.0); Mean Platelet Volume 8.4; Monocytes # (A) 0.6 k/uL (0-1.0); Monocytes % (A) 6 %; Neutrophils # (A) 10.2 k/uL (1.3-7.7); Neutrophils % (A) 89 %; Platelet Count 434 k/uL (150-450); RBC 3.93 m/uL (3.80-5.40); RDW 14.7 % (11.5-15.5); WBC 11.5 k/uL (3.8-10.6)
[2022-01-17 06:39] LABS: ALT 42 U/L (4-34); AST 44 U/L (14-36); African American GFR (CKD) >90 (>60 ml/min/1.73 sqM); Albumin 2.2 g/dL (3.5-5.0); Alkaline Phosphatase 57 U/L (38-126); Anion Gap 0 mmol/L; Blood Urea Nitrogen 31 mg/dL (7-17); Calcium 7.8 mg/dL (8.4-10.2); Carbon Dioxide 31 mmol/L (22-30); Chloride 105 mmol/L (98-107); Glucose 141 mg/dL (74-99); Non-African American GFR(CKD) >90 (>60 ml/min/1.73 sqM); Potassium 4.6 mmol/L (3.5-5.1); Sodium 136 mmol/L (137-145); Total Bilirubin 0.5 mg/dL (0.2-1.3); Total Protein 4.5 g/dL (6.3-8.2)
[2022-01-17] MEDS: ALBUTEROL HFA INHALER INHALATION SCH ×4 (08:06→20:27)
[2022-01-17] MEDS: SYMBICORT 160-4.5 MCG INHALER INHALATION SCH ×2 (08:06→20:28)
[2022-01-17] MEDS: TIOTROPIUM 2.5 MCG INHALER INHALATION SCH (08:06)
[2022-01-17] MEDS: CITALOPRAM HYDROBROMIDE 10 MG TAB PO SCH (09:17)
[2022-01-17] MEDS: methylPREDNISolone SOD SUCCI 40 MG/ML 1 ML VIAL IV SCH ×2 (09:17→16:18)
[2022-01-17] MEDS: PANTOPRAZOLE 40 MG/10 ML VIAL IV SCH (09:17)
[2022-01-17] MEDS: ASCORBIC ACID 500 MG TAB PO SCH ×2 (09:17→21:32)
[2022-01-17] MEDS: APIXABAN 5 MG TAB PO SCH ×2 (09:17→21:31)
[2022-01-17] MEDS: CHOLECALCIFEROL 25 MCG (1000 IU) TABLET PO SCH (09:17)
[2022-01-17] MEDS: ZINC SULFATE 220 MG CAP PO SCH (09:17)
--- NOTE | 2022-01-17 11:05 | P.PN ---
Subjective Progress Note Date: 01/17/22 This is a 76-year-old female who is not a great historian, her daughter is at bedside, patient is known to have history of hypothyroidism, COPD, history generalized anxiety disorder, patient has been weak for the last few days. According to the daughter, patient fell 4 days ago, and has been complaining of pain to her buttocks. Patient also had some intermittent cough, shortness of breath, and according to the daughter the patient has not been taking her medications including her thyroid medicine and her Combivent for COPD. Patient is a heavy smoker, she smoked 2 packs a day for many years. Does not use oxygen at home. Workup in the ER included a CBC which showed leukocytosis. Elevated d-dimer of 3.94. Abnormal renal profile with a BUN of 76 creatinine of 1.92 and low sodium of 129, elevated BNP level of 2580, normal troponin, and normal liver enzymes. Patient was also noted to have positive PCR for COVID-19, chest x-ray showed multifocal reticular markings and multifocal atypical infiltrates. Possible underlying pulmonary fibrosis. No old x-ray for comparison. Patient was also noted to be relatively hypotensive requiring fluid boluses with slight improvement of the blood pressure. I saw this patient in the ER, and I recommended admitting the patient to the ICU. In the meantime I ordered a high- resolution CT of the chest, started the patient on Remdesivir, patient is on 6 L nasal cannula, recommended fluid boluses, empiric antibiotics, pro-calcitonin level is pending, and order the COVID-19 cocktail. Reevaluated today on 01/08/22, patient remains in the ICU, her condition became a bit worse overnight, patient had to be placed on BiPAP, and she is now on BiPAP FiO2 of 50% IPAP 16 and EPAP of 6 I was able to cut down her FiO2 to 45% and her IPAP 10-14 EPAP remains at 6. Patient is requiring norepinephrine for low blood pressure, hence this is clearly a presentation of septic shock. Patient is requiring norepinephrine at 0.38 mcg/kg/m, her IV fluid went down to KVO after she received 4 L of fluids last night, felt that the patient was over hydrated, and her urine output picked up last night and I was notified about her worsening pulmonary status recommended Lasix dose earlier today with good response to the Lasix. Her creatinine is improving when down from 1.92-1.70 today. Bicarb remains low at 14 on him recommending a bicarb drip. Today I was able to establish a triple-lumen catheter and arterial line and the patient, her pro calcitonin was noted to be high at 5.47, patient was initially placed on vancomycin and Zosyn, blood cultures are negative so far, I'm recommending that we continue Zosyn, discontinue vancomycin, and recommending infectious disease consultation. I'm also recommending a CT of the lumbosacral spine since the patient has significant area of ecchymosis in the buttock area and low back. Apparently she fell 4 days ago. And she had significant amount of pain. The ER physician ordered a thoracic spine CT but did not address the lumbar spine area which seems to be the area of pain and the area of trauma. Patient remains on the COVID-19 cocktail. And I started the patient yesterday on Remdesivir. Since her symptoms were recent within the therapeutic window. WBC count is 20.2 hemoglobin is 12.5. Electrodes are normal except elevated potassium and that will improve with bicarbonate drip. Renal profile as noted earlier. Pro- calcitonin level is very high at 5.47 Reevaluated today on , patient remains in the ICU, remains on BiPAP, FiO2 40%, IPAP of 14 EPAP of 6. Remains on small dose of norepinephrine at 0.1 mcg/kg/m, patient remains on bicarb drip, I cut it down to 25 mL per hour today. Yesterday she had ultrasound of the gallbladder showing mostly cholelithiasis but no cholecystitis. Patient had negative CT of the lumbar spine. Remains on Zosyn empirically since her pro calcitonin level was quite high. She has better urine output, 35-50 mL per hour. Planning today to change from BiPAP possibly to airvo. Planning to gently diurese the patient, her chest x-ray is not showing much of a change in her bilateral interstitial infiltrates, and again I strongly suspect ongoing interstitial lung disease. WBC count 14.8 hemoglobin is 10.6, PTT is 73.7, patient remains on heparin. Basic metabolic profile is normal, BUN is 63 and creatinine 1.41. Reevaluated today on 01/10/22, patient remains in the ICU, remains on BiPAP, she is on 40% FiO2 IPAP of 12 EPAP of 5 Reed seems to be comfortable, and not in distress. Feeling better. Remains on heparin and she remains on norepinephrine at 0.1 mcg/kg/m. Today I am changes heparin to eliquis which she took on outpatient basis. Chest x-ray continues to show interstitial lung disease and interstitial infiltrates. Clinically the patient is feeling better. Her renal functioning is almost back to normal. Continues to have good urine output with diuresis. BUN is down to 60 creatinine is down to 1.12 patient remains on Remdesivir she remains on the COVID-19 cocktail. Reevaluated today on 01/11/22 patient remains in the ICU, she is now on airvo S 50% FiO2 and 60 L flow, saturating in the mid 90s, patient is still requiring n orepinephrine at 0.12 mcg/kg/m. Remains on her day #5 of Remdesivir, she is also on Decadron, eliquis, and multivitamins, patient is also on Zosyn for empiric treatment of superimposed bacterial infection/pneumonia considering that her pro calcitonin level was quite high on admission. Overall clinically the patient is improving but very slowly. WBC count is 7.5 hemoglobin is 10.7. Electrodes are normal renal profile is basically back to normal her creatinine is now 0.83. Reevaluated today on 02/08/22, patient remains in the ICU, remains relatively critically ill, patient is still requiring norepinephrine at 0.08 mcg/kg/m, patient remains on airvo at 55 L and 55% FiO2, chest x-ray is showing some worsening today with interstitial infiltrates, possible interstitial edema, hence I recommended a dose of Lasix 40 mg IV push, and the patient had significant urine output after the Lasix given. She remains on Decadron, she is also on eliquis, and she is on Zosyn. Her echocardiogram showed good LV function, however I am planning to keep the patient on the dry side considering her underlying COVID-19 pneumonia and her underlying interstitial lung disease. WBC count is 9 hemoglobin is 10.8 electrolytes are normal renal profile is normal, blood cultures remain negative. Pro-calcitonin level on admission was elevated. Reevaluated today on 01/13/22, patient remains in the ICU, remains critically ill, she remains on high flow oxygen via airflow, she is on 60% FiO2 and 60 L flow. Patient doesn't respond to diuretics quite well, however her chest x-ray is not showing much improvement, I strongly believe that we are dealing with COVID-19 pneumonia along with interstitial lung disease/pulmonary fibrosis. Not much of a change in the last 24 hours, patient is still on antibiotics empirically because of her pro calcitonin level was elevated, she is still on diuretics as needed, she still requiring norepinephrine at 0.05 mcg/kg/m. Patient remains marginal at best, and I have no plans to transfer the patient out of the ICU at this point yet. She may eventually require a PICC line placement she does have a central access test present but needs to be changed to a PICC line. The patient is seen today 01/14/2022 in follow-up in the intensive care unit. She was admitted back on 01/07/2022 for COPD exacerbation and COVID-19 19 pneumonia. She remains on 15 L high flow nasal cannula to maintain O2 saturations in the 90s. Normal saline at 20 ML's per hour. She is currently off norepinephrine. She has completed a course of Remdesivir. She remains on Symbicort, Spiriva, IV Solu-Medrol, Albuterol HFA, vitamin supplements. She remains on antibiotics in the form of Zosyn. She is anticoagulated with Eliquis. She has been slow to progress. Blood cultures revealed no growth. White count 9.6. Hemoglobin 10.7. Lymphocytes 0.5. Sodium 135. Potassium 4.2. BUN 22. Creatinine 0.58. Glucose 150. Follow-up pro calcitonin pending. The patient is seen today 01/15/2022 in follow-up in the intensive care unit. She is currently resting fairly comfortably in bed. Awake and alert. She is on 15 L high flow nasal cannula. She has normal sitting at 20 mL per hour. She was continued on Symbicort, albuterol, IV Solu-Medrol. Maintained on Zosyn. Continued on vitamin supplements. Eliquis for anticoagulation. Cultures revealed no growth. White count 9.5. Hemoglobin 10.8. Lymphocytes 0.5. Sodium 134. Potassium 4.0. BUN 27. Creatinine 0.57. Glucose 145. Procalcitonin 0.23. The patient is seen today 01/16/2022 in follow-up in the intensive care unit. She is a regular medical floor overflow. She is awake and alert in no acute distress. She is resting comfortably in bed. She is still requiring 15 L high flow nasal cannula to maintain O2 saturation in the 90s. She has normal saline at 20 ML's per hour.chest x-ray continues to show similar multifocal airspace opacities. Trace bilateral effusions. cultures revealed no growth. She completed a course of Zosyn. She was continued on vitamin supplements, IV Solu- Medrol, Symbicort, Spiriva, albuterol. Anticoagulated with Eliquis. The patient is seen today 01/17/2022 in follow-up in the intensive care unit. She is resting comfortably in bed. Awake and alert in no acute distress. She is still requiring 12 L high flow nasal cannula to maintain O2 saturations in the 90s. She has normal saline at 20 mL an hour. White count 11.5. Hemoglobin 10.7. Platelets 434. Sodium 136. Potassium 4.6. BUN 31. Creatinine 0.51. Glucose 141. AST 44. As ALT 42. Lymphocytes 0.5. She is continued on vitamin supplements, IV Solu-Medrol, Symbicort, Spiriva, albuterol, vitamin supplements. Anticoagulated with Eliquis. Objective - Vital Signs Vital signs: Vital Signs Temp 97.9 F 01/17/22 02:00 Pulse 67 01/17/22 02:00 Resp 14 01/17/22 02:00 BP 82/52 01/17/22 02:00 Pulse Ox 96 01/17/22 08:09 FiO2 60 01/13/22 16:00 Intake & Output 01/16/22 01/17/22 01/17/22 18:59 06:59 18:59 Intake Total 183 120 Balance 183 120 Weight 70.6 kg Intake: IV 183 120 0.9 Normal Saline @ 10mL/ 180 120 hr KVO 0.9NS Pressure Bag 3 Other: Voiding Method External Catheter Bedpan # Voids 4 ABP, PAP, CO, CI - Last Documented Arterial Blood Pressure 110/53 - Exam GENERAL EXAM: Alert, frail, 76-year-old female, on 12 L high flow nasal cannula, fairly comfortable in no apparent distress. HEAD: Normocephalic. EYES: Normal reaction of pupils, equal size. NOSE: Clear with pink turbinates. THROAT: No erythema or exudates. NECK: No masses, no JVD. CHEST: No chest wall deformity. LUNGS: Equal air entry with crackles in the bilateral bases. CVS: S1 and S2 normal with no audible murmur, irregular rhythm. ABDOMEN: No hepatosplenomegaly, normal bowel sounds, no guarding or rigidity. SPINE: No scoliosis or deformity SKIN: No rashes. Ecchymosis of the lower lumbar sacral area due to previous fall CENTRAL NERVOUS SYSTEM: No focal deficits, tone is normal in all 4 extremities. EXTREMITIES: There is no peripheral edema. No clubbing, no cyanosis. Peripheral pulses are intact. - Labs CBC & Chem 7: 01/17/22 05:30 01/17/22 05:30 Labs: Abnormal Lab Results - Last 24 Hours (Table) 01/17/22 01/17/22 Range/Units 05:30 05:30 WBC 11.5 H (3.8-10.6) k/uL Hgb 10.7 L (11.4-16.0) gm/dL Neutrophils # 10.2 H (1.3-7.7) k/uL Lymphocytes # 0.5 L (1.0-4.8) k/uL Sodium 136 L (137-145) mmol/L Carbon Dioxide 31 H (22-30) mmol/L BUN 31 H (7-17) mg/dL Creatinine 0.51 L (0.52-1.04) mg/dL Glucose 141 H (74-99) mg/dL Calcium 7.8 L (8.4-10.2) mg/dL AST 44 H (14-36) U/L ALT 42 H (4-34) U/L Total Protein 4.5 L (6.3-8.2) g/dL Albumin 2.2 L (3.5-5.0) g/dL Assessment and Plan Assessment: Acute hypoxic respiratory failure secondary to acute COVID-19 pneumonia, underlying bacterial pneumonia is very likely considering her chest x-ray findings and considering elevated pro calcitonin level. Completed a course of Zosyn. Possible interstitial lung disease/pulmonary fibrosis, likely contributing to her acute hypoxic respiratory failure Hypotension, secondary to sepsis/septic shock, septic and hypovolemic shock, currently off norepinephrine History of underlying COPD does not seem to be active at this point. But likely contributing to her hypoxic respiratory failure History of hypothyroidism History of generalized anxiety disorder Elevated d-dimer but negative venous Doppler for DVT, cannot perform CT angiogram of the chest mostly because of her renal functioning Acute dehydration Acute kidney injury secondary to dehydration Paroxysmal atrial fibrillation, anticoagulated with Eliquis Plan: The patient was seen and evaluated Medications and labs reviewed Continue the current treatment plan Titrate the FiO2 as tolerated Prognosis is guarded We will continue to follow I have personally seen and examined the patient, performed the documentation and the assessment and plan as written. Number of minutes spent on the visit: 10.
[2022-01-17] MEDS: NOREPINEPHRINE 8 MG in SODIUM CHLORIDE 0.9% 250 ML IV SCH (15:52)
--- NOTE | 2022-01-17 16:04 | P.PN ---
Subjective Progress Note Date: 01/17/22 Samantha Brown, is a 76-year-old female who presented to [facility] emergency room with a chief complaint of generalized weakness, patient's daughter reported in the emergency room that her mother had a fall 4 days prior to presentation She was evaluated in the emergency room vital examination on presentation revealed Laboratory data revealed a white blood count of 14.4 hemoglobin 12.2 platelet count 476 INR 1.2 d-dimer 3.94 sodium 129 potassium 5.1 chloride 99 CO2 23 BUN 76 creatinine 1.92 lactic acid 1.7 Corps on a virus PCR was positive Testing in the emergency room revealed chest x-ray done in emergency room revealed small bilateral pleural effusions and multifocal areas of increased reticular markings, EKG revealed atrial fibrillation with a heart rate of 86 Patient was admitted to medical floor for further evaluation and treatment. Past medical history is significant for history of hypertension, history of hyperlipidemia, history of hypothyroidism, and history of tobacco use patient smokes 2 packs per day On 01/08/2022 patient was seen and examined in the ICU she is alert responsive in mild distress due to shortness of breath, she was started on BiPAP during the night, she is maintained on norepinephrine for pressure support, she is also maintained on IV antibiotic Zosyn, input from cardiology and pulmonary review, patient's daughter Pily contacted over the phone and all questions answered to her satisfaction. On 01/09/2022 patient remains in the intensive care unit slightly improved. Patient remains on BiPAP. Creatinine improving to 1.41 bun 63. Patient remains on IV heparin. Patient also remains on sodium bicarb current vital signs heart rate 88, respiratory rate 19, blood pressure 108/51 patient satting 93% on BiPAP 40% FiO2. On 01/10/2022 patient was seen and examined in the ICU she is alert responsive in no apparent distress she is maintained on BiPAP, she is stating that her shortness of breath is improving she denies any chest pain there is no nausea or vomiting no abdominal pain no diarrhea and no urinary symptoms, however white blood count is 11 hemoglobin 10.8, BUN 60 creatinine 1.12 On 01/11/2022 patient was seen and examined in the ICU she is alert responsive in no apparent distress BiPAP was discontinued and patient was started on Airvo high flow oxygen she is still maintained on levophed for pressure support and this is being weaned down gradually. White blood count is down today to 7.5 BUN down to 45 creatinine 0.83 patient denies any chest pain or shortness of breath is improving, she is receiving IV antibiotic Zosyn she is also receiving Remdesevir for Covid-19 On 01/12/22, patient was seen and examined in the ICU, she is alert and oriented x 3, patient remains on airvo 55% FiO2, chest x-ray is showing some worsening today with interstitial infiltrates, possible interstitial edema. She remains on Decadron, she is also on eliquis, and she is on Zosyn. patient is still requiring norepinephrine On 01/13/2022 patient remains in the intensive care unit. Patient did require higher levels of irritable last night per nursing staff but is back down to 55%. Steroids were increased per pulmonary and critical care. Current vital signs temp 98.6, heart rate 75, respiratory rate 23, blood pressure 107/71 patient currently on 60% airflow satting 98% On 01/14/2022 patient was seen and examined in the ICU she is alert and oriented 3 in no apparent distress she is still maintained on high flow oxygen there is no fever or chills no headache or dizziness no chest pain she has occasional cough no nausea or vomiting no abdominal pain no diarrhea no blood in the stools, no urinary symptoms Wren catheter is in. On 01/15/2022 patient was seen and examined in the ICU she is alert and responsive in no apparent distress she is maintained on high flow oxygen at 15 L/m via nasal cannula there is no fever or chills no headache or dizziness no chest pain she has shortness of breath with any activity and occasional cough no nausea or vomiting no abdominal pain no diarrhea and no urinary symptoms is ma intained on IV Zosyn inhaled bronchodilators, inhaled steroids, and Eliquis, she is off pressure support at this time On 01/16/2022 patient remains in the intensive care unit. Patient remains on high flow 15 L. Patient remains off pressure support medication at this time. Current vital signs temp 97.7 heart rate 57, respiratory rate 17, blood pressure 100/62 sitting 90% on 15 L. On 01/17/2022 patient was seen and examined in the ICU, she is alert and oriented 3 in no apparent distress, she is still maintained on high flow oxygen at 15 L/m, she denies any chest pain, there is no fever or chills no headache or dizziness she has occasional cough no nausea or vomiting no abdominal pain no diarrhea and no urinary symptoms. Patient has poor oral intake, I was contacted today by the dietitian who recommended tube feeding due to patient consuming less then 25% of her meals, tube feeding was discussed in details with patient and at this time she is refusing, she stated that she will work on eating more of her meals. Nutrition supplements will be admitted Objective - Vital Signs Vital signs: Vital Signs Temp 97.9 F 01/17/22 02:00 Pulse 67 01/17/22 02:00 Resp 14 01/17/22 02:00 BP 82/52 01/17/22 02:00 Pulse Ox 96 01/17/22 08:09 FiO2 60 01/13/22 16:00 Intake & Output 01/16/22 01/17/22 01/17/22 18:59 06:59 18:59 Intake Total 183 120 Balance 183 120 Intake: IV 183 120 0.9 Normal Saline @ 10mL/ 180 120 hr KVO 0.9NS Pressure Bag 3 Other: Voiding Method External Catheter Bedpan # Voids 4 ABP, PAP, CO, CI - Last Documented Arterial Blood Pressure 110/53 - Exam In general patient is alert responsive maintained on BiPAP HEENT head normocephalic and atraumatic Neck is supple no JVD no goiter no lymphadenopathy no carotid bruit Chest examination reveals a scattered crackles bilaterally with mild wheezing Cardiac exam reveals regular heart sounds S1 and S2 no gallops no murmurs Abdomen is soft nontender no organomegaly with normal bowel sounds Extremity exam reveals no edema no cyanosis or clubbing, poor pulses peripherally Neurological examination reveals no gross focal deficits - Labs CBC & Chem 7: 01/17/22 05:30 01/17/22 05:30 Labs: Abnormal Lab Results - Last 24 Hours (Table) 01/17/22 01/17/22 Range/Units 05:30 05:30 WBC 11.5 H (3.8-10.6) k/uL Hgb 10.7 L (11.4-16.0) gm/dL Neutrophils # 10.2 H (1.3-7.7) k/uL Lymphocytes # 0.5 L (1.0-4.8) k/uL Sodium 136 L (137-145) mmol/L Carbon Dioxide 31 H (22-30) mmol/L BUN 31 H (7-17) mg/dL Creatinine 0.51 L (0.52-1.04) mg/dL Glucose 141 H (74-99) mg/dL Calcium 7.8 L (8.4-10.2) mg/dL AST 44 H (14-36) U/L ALT 42 H (4-34) U/L Total Protein 4.5 L (6.3-8.2) g/dL Albumin 2.2 L (3.5-5.0) g/dL Assessment and Plan Plan: Acute hypoxic respiratory failure Acute coronary 19 pneumonia Underlying history of chronic obstructive pulmonary disease Sepsis as evidenced by leukocytosis, tachycardia, mild elevation in lactic acid and hypotension Elevated d-dimer Acute kidney injury possibly related to dehydration and prerenal azotemia, will monitor kidney function Underlying history of hypertension Underlying history of hypothyroidism Chronic tobacco use patient smokes up to 2 packs per day Persistent atrial fibrillation with controlled heart rate patient has been switched to oral anticoagulation with eliquis At this time patient is admitted to intensive care unit Pulmonary, vascular surgery, and cardiology consultation requested Patient started on IV antibiotics, IV a Remdesevir, IV steroids and inhaled bronchodilators Medication and labs reviewed will follow closely Prognosis is guarded due to severity of illness
[2022-01-17] MEDS: risperiDONE 2 MG TAB PO SCH (21:33)
[2022-01-18] MEDS: methylPREDNISolone SOD SUCCI 40 MG/ML 1 ML VIAL IV SCH ×3 (00:49→16:55)
[2022-01-18] MEDS: SODIUM CHLORIDE 0.9% 1,000 ML IV SCH (06:00)
[2022-01-18] MEDS: LEVOTHYROXINE 75 MCG TAB PO SCH (06:11)
[2022-01-18] MEDS: TIOTROPIUM 2.5 MCG INHALER INHALATION SCH (08:05)
[2022-01-18] MEDS: SYMBICORT 160-4.5 MCG INHALER INHALATION SCH ×2 (08:05→21:03)
[2022-01-18] MEDS: ALBUTEROL HFA INHALER INHALATION SCH ×4 (08:05→21:03)
[2022-01-18] MEDS: APIXABAN 5 MG TAB PO SCH ×2 (09:42→20:39)
[2022-01-18] MEDS: CITALOPRAM HYDROBROMIDE 10 MG TAB PO SCH (09:42)
[2022-01-18] MEDS: ASCORBIC ACID 500 MG TAB PO SCH ×2 (09:42→20:39)
[2022-01-18] MEDS: ZINC SULFATE 220 MG CAP PO SCH (09:42)
[2022-01-18] MEDS: PANTOPRAZOLE 40 MG/10 ML VIAL IV SCH (09:42)
[2022-01-18] MEDS: CHOLECALCIFEROL 25 MCG (1000 IU) TABLET PO SCH (09:42)
--- NOTE | 2022-01-18 10:17 | P.PN ---
Subjective Progress Note Date: 01/18/22 Samantha Brown, is a 76-year-old female who presented to [facility] emergency room with a chief complaint of generalized weakness, patient's daughter reported in the emergency room that her mother had a fall 4 days prior to presentation She was evaluated in the emergency room vital examination on presentation revealed Laboratory data revealed a white blood count of 14.4 hemoglobin 12.2 platelet count 476 INR 1.2 d-dimer 3.94 sodium 129 potassium 5.1 chloride 99 CO2 23 BUN 76 creatinine 1.92 lactic acid 1.7 Corps on a virus PCR was positive Testing in the emergency room revealed chest x-ray done in emergency room revealed small bilateral pleural effusions and multifocal areas of increased reticular markings, EKG revealed atrial fibrillation with a heart rate of 86 Patient was admitted to medical floor for further evaluation and treatment. Past medical history is significant for history of hypertension, history of hyperlipidemia, history of hypothyroidism, and history of tobacco use patient smokes 2 packs per day On 01/08/2022 patient was seen and examined in the ICU she is alert responsive in mild distress due to shortness of breath, she was started on BiPAP during the night, she is maintained on norepinephrine for pressure support, she is also maintained on IV antibiotic Zosyn, input from cardiology and pulmonary review, patient's daughter Pily contacted over the phone and all questions answered to her satisfaction. On 01/09/2022 patient remains in the intensive care unit slightly improved. Patient remains on BiPAP. Creatinine improving to 1.41 bun 63. Patient remains on IV heparin. Patient also remains on sodium bicarb current vital signs heart rate 88, respiratory rate 19, blood pressure 108/51 patient satting 93% on BiPAP 40% FiO2. On 01/10/2022 patient was seen and examined in the ICU she is alert responsive in no apparent distress she is maintained on BiPAP, she is stating that her shortness of breath is improving she denies any chest pain there is no nausea or vomiting no abdominal pain no diarrhea and no urinary symptoms, however white blood count is 11 hemoglobin 10.8, BUN 60 creatinine 1.12 On 01/11/2022 patient was seen and examined in the ICU she is alert responsive in no apparent distress BiPAP was discontinued and patient was started on Airvo high flow oxygen she is still maintained on levophed for pressure support and this is being weaned down gradually. White blood count is down today to 7.5 BUN down to 45 creatinine 0.83 patient denies any chest pain or shortness of breath is improving, she is receiving IV antibiotic Zosyn she is also receiving Remdesevir for Covid-19 On 01/12/22, patient was seen and examined in the ICU, she is alert and oriented x 3, patient remains on airvo 55% FiO2, chest x-ray is showing some worsening today with interstitial infiltrates, possible interstitial edema. She remains on Decadron, she is also on eliquis, and she is on Zosyn. patient is still requiring norepinephrine On 01/13/2022 patient remains in the intensive care unit. Patient did require higher levels of irritable last night per nursing staff but is back down to 55%. Steroids were increased per pulmonary and critical care. Current vital signs temp 98.6, heart rate 75, respiratory rate 23, blood pressure 107/71 patient currently on 60% airflow satting 98% On 01/14/2022 patient was seen and examined in the ICU she is alert and oriented 3 in no apparent distress she is still maintained on high flow oxygen there is no fever or chills no headache or dizziness no chest pain she has occasional cough no nausea or vomiting no abdominal pain no diarrhea no blood in the stools, no urinary symptoms Wren catheter is in. On 01/15/2022 patient was seen and examined in the ICU she is alert and responsive in no apparent distress she is maintained on high flow oxygen at 15 L/m via nasal cannula there is no fever or chills no headache or dizziness no chest pain she has shortness of breath with any activity and occasional cough no nausea or vomiting no abdominal pain no diarrhea and no urinary symptoms is ma intained on IV Zosyn inhaled bronchodilators, inhaled steroids, and Eliquis, she is off pressure support at this time On 01/16/2022 patient remains in the intensive care unit. Patient remains on high flow 15 L. Patient remains off pressure support medication at this time. Current vital signs temp 97.7 heart rate 57, respiratory rate 17, blood pressure 100/62 sitting 90% on 15 L. On 01/17/2022 patient was seen and examined in the ICU, she is alert and oriented 3 in no apparent distress, she is still maintained on high flow oxygen at 15 L/m, she denies any chest pain, there is no fever or chills no headache or dizziness she has occasional cough no nausea or vomiting no abdominal pain no diarrhea and no urinary symptoms. Patient has poor oral intake, I was contacted today by the dietitian who recommended tube feeding due to patient consuming less then 25% of her meals, tube feeding was discussed in details with patient and at this time she is refusing, she stated that she will work on eating more of her meals. Nutrition supplements will be admitted On 01/18/2022 patient is alert and oriented 3. Patient is weaning down in oxygen demand patient currently on high flow nasal cannula 10 L. Current vital signs temp 97.4, heart rate 78, respiratory rate 14, blood pressure 98/51. Objective - Vital Signs Vital signs: Vital Signs Temp 97.4 F L 01/18/22 08:47 Pulse 78 01/18/22 08:47 Resp 14 01/18/22 08:47 BP 98/51 01/18/22 09:00 Pulse Ox 98 01/18/22 09:40 FiO2 60 01/13/22 16:00 Intake & Output 01/17/22 01/18/22 01/18/22 18:59 06:59 18:59 Intake Total 80 200 Balance 80 200 Weight 70.6 kg Intake: IV 80 0.9 Normal Saline @ 10mL/ 80 hr KVO Oral 200 Other: Voiding Method Bedpan Bedpan # Voids 3 1 ABP, PAP, CO, CI - Last Documented Arterial Blood Pressure 110/53 - Exam In general patient is alert responsive maintained on BiPAP HEENT head normocephalic and atraumatic Neck is supple no JVD no goiter no lymphadenopathy no carotid bruit Chest examination reveals a scattered crackles bilaterally with mild wheezing Cardiac exam reveals regular heart sounds S1 and S2 no gallops no murmurs Abdomen is soft nontender no organomegaly with normal bowel sounds Extremity exam reveals no edema no cyanosis or clubbing, poor pulses peripherally Neurological examination reveals no gross focal deficits - Labs CBC & Chem 7: 01/17/22 05:30 01/17/22 05:30 Assessment and Plan Plan: Acute hypoxic respiratory failure Acute coronary 19 pneumonia Underlying history of chronic obstructive pulmonary disease Sepsis as evidenced by leukocytosis, tachycardia, mild elevation in lactic acid and hypotension Elevated d-dimer Acute kidney injury possibly related to dehydration and prerenal azotemia, will monitor kidney function Underlying history of hypertension Underlying history of hypothyroidism Chronic tobacco use patient smokes up to 2 packs per day Persistent atrial fibrillation with controlled heart rate patient has been switched to oral anticoagulation with eliquis At this time patient is admitted to intensive care unit Pulmonary, vascular surgery, and cardiology consultation requested Patient started on IV antibiotics, IV a Remdesevir, IV steroids and inhaled bronchodilators Medication and labs reviewed will follow closely Prognosis is guarded due to severity of illness
--- NOTE | 2022-01-18 11:16 | P.PN ---
Subjective Progress Note Date: 01/18/22 This is a 76-year-old female who is not a great historian, her daughter is at bedside, patient is known to have history of hypothyroidism, COPD, history generalized anxiety disorder, patient has been weak for the last few days. According to the daughter, patient fell 4 days ago, and has been complaining of pain to her buttocks. Patient also had some intermittent cough, shortness of breath, and according to the daughter the patient has not been taking her medications including her thyroid medicine and her Combivent for COPD. Patient is a heavy smoker, she smoked 2 packs a day for many years. Does not use oxygen at home. Workup in the ER included a CBC which showed leukocytosis. Elevated d-dimer of 3.94. Abnormal renal profile with a BUN of 76 creatinine of 1.92 and low sodium of 129, elevated BNP level of 2580, normal troponin, and normal liver enzymes. Patient was also noted to have positive PCR for COVID-19, chest x-ray showed multifocal reticular markings and multifocal atypical infiltrates. Possible underlying pulmonary fibrosis. No old x-ray for comparison. Patient was also noted to be relatively hypotensive requiring fluid boluses with slight improvement of the blood pressure. I saw this patient in the ER, and I recommended admitting the patient to the ICU. In the meantime I ordered a high- resolution CT of the chest, started the patient on Remdesivir, patient is on 6 L nasal cannula, recommended fluid boluses, empiric antibiotics, pro-calcitonin level is pending, and order the COVID-19 cocktail. Reevaluated today on 01/08/22, patient remains in the ICU, her condition became a bit worse overnight, patient had to be placed on BiPAP, and she is now on BiPAP FiO2 of 50% IPAP 16 and EPAP of 6 I was able to cut down her FiO2 to 45% and her IPAP 10-14 EPAP remains at 6. Patient is requiring norepinephrine for low blood pressure, hence this is clearly a presentation of septic shock. Patient is requiring norepinephrine at 0.38 mcg/kg/m, her IV fluid went down to KVO after she received 4 L of fluids last night, felt that the patient was over hydrated, and her urine output picked up last night and I was notified about her worsening pulmonary status recommended Lasix dose earlier today with good response to the Lasix. Her creatinine is improving when down from 1.92-1.70 today. Bicarb remains low at 14 on him recommending a bicarb drip. Today I was able to establish a triple-lumen catheter and arterial line and the patient, her pro calcitonin was noted to be high at 5.47, patient was initially placed on vancomycin and Zosyn, blood cultures are negative so far, I'm recommending that we continue Zosyn, discontinue vancomycin, and recommending infectious disease consultation. I'm also recommending a CT of the lumbosacral spine since the patient has significant area of ecchymosis in the buttock area and low back. Apparently she fell 4 days ago. And she had significant amount of pain. The ER physician ordered a thoracic spine CT but did not address the lumbar spine area which seems to be the area of pain and the area of trauma. Patient remains on the COVID-19 cocktail. And I started the patient yesterday on Remdesivir. Since her symptoms were recent within the therapeutic window. WBC count is 20.2 hemoglobin is 12.5. Electrodes are normal except elevated potassium and that will improve with bicarbonate drip. Renal profile as noted earlier. Pro- calcitonin level is very high at 5.47 Reevaluated today on , patient remains in the ICU, remains on BiPAP, FiO2 40%, IPAP of 14 EPAP of 6. Remains on small dose of norepinephrine at 0.1 mcg/kg/m, patient remains on bicarb drip, I cut it down to 25 mL per hour today. Yesterday she had ultrasound of the gallbladder showing mostly cholelithiasis but no cholecystitis. Patient had negative CT of the lumbar spine. Remains on Zosyn empirically since her pro calcitonin level was quite high. She has better urine output, 35-50 mL per hour. Planning today to change from BiPAP possibly to airvo. Planning to gently diurese the patient, her chest x-ray is not showing much of a change in her bilateral interstitial infiltrates, and again I strongly suspect ongoing interstitial lung disease. WBC count 14.8 hemoglobin is 10.6, PTT is 73.7, patient remains on heparin. Basic metabolic profile is normal, BUN is 63 and creatinine 1.41. Reevaluated today on 01/10/22, patient remains in the ICU, remains on BiPAP, she is on 40% FiO2 IPAP of 12 EPAP of 5 Reed seems to be comfortable, and not in distress. Feeling better. Remains on heparin and she remains on norepinephrine at 0.1 mcg/kg/m. Today I am changes heparin to eliquis which she took on outpatient basis. Chest x-ray continues to show interstitial lung disease and interstitial infiltrates. Clinically the patient is feeling better. Her renal functioning is almost back to normal. Continues to have good urine output with diuresis. BUN is down to 60 creatinine is down to 1.12 patient remains on Remdesivir she remains on the COVID-19 cocktail. Reevaluated today on 01/11/22 patient remains in the ICU, she is now on airvo S 50% FiO2 and 60 L flow, saturating in the mid 90s, patient is still requiring n orepinephrine at 0.12 mcg/kg/m. Remains on her day #5 of Remdesivir, she is also on Decadron, eliquis, and multivitamins, patient is also on Zosyn for empiric treatment of superimposed bacterial infection/pneumonia considering that her pro calcitonin level was quite high on admission. Overall clinically the patient is improving but very slowly. WBC count is 7.5 hemoglobin is 10.7. Electrodes are normal renal profile is basically back to normal her creatinine is now 0.83. Reevaluated today on 02/08/22, patient remains in the ICU, remains relatively critically ill, patient is still requiring norepinephrine at 0.08 mcg/kg/m, patient remains on airvo at 55 L and 55% FiO2, chest x-ray is showing some worsening today with interstitial infiltrates, possible interstitial edema, hence I recommended a dose of Lasix 40 mg IV push, and the patient had significant urine output after the Lasix given. She remains on Decadron, she is also on eliquis, and she is on Zosyn. Her echocardiogram showed good LV function, however I am planning to keep the patient on the dry side considering her underlying COVID-19 pneumonia and her underlying interstitial lung disease. WBC count is 9 hemoglobin is 10.8 electrolytes are normal renal profile is normal, blood cultures remain negative. Pro-calcitonin level on admission was elevated. Reevaluated today on 01/13/22, patient remains in the ICU, remains critically ill, she remains on high flow oxygen via airflow, she is on 60% FiO2 and 60 L flow. Patient doesn't respond to diuretics quite well, however her chest x-ray is not showing much improvement, I strongly believe that we are dealing with COVID-19 pneumonia along with interstitial lung disease/pulmonary fibrosis. Not much of a change in the last 24 hours, patient is still on antibiotics empirically because of her pro calcitonin level was elevated, she is still on diuretics as needed, she still requiring norepinephrine at 0.05 mcg/kg/m. Patient remains marginal at best, and I have no plans to transfer the patient out of the ICU at this point yet. She may eventually require a PICC line placement she does have a central access test present but needs to be changed to a PICC line. The patient is seen today 01/14/2022 in follow-up in the intensive care unit. She was admitted back on 01/07/2022 for COPD exacerbation and COVID-19 19 pneumonia. She remains on 15 L high flow nasal cannula to maintain O2 saturations in the 90s. Normal saline at 20 ML's per hour. She is currently off norepinephrine. She has completed a course of Remdesivir. She remains on Symbicort, Spiriva, IV Solu-Medrol, Albuterol HFA, vitamin supplements. She remains on antibiotics in the form of Zosyn. She is anticoagulated with Eliquis. She has been slow to progress. Blood cultures revealed no growth. White count 9.6. Hemoglobin 10.7. Lymphocytes 0.5. Sodium 135. Potassium 4.2. BUN 22. Creatinine 0.58. Glucose 150. Follow-up pro calcitonin pending. The patient is seen today 01/15/2022 in follow-up in the intensive care unit. She is currently resting fairly comfortably in bed. Awake and alert. She is on 15 L high flow nasal cannula. She has normal sitting at 20 mL per hour. She was continued on Symbicort, albuterol, IV Solu-Medrol. Maintained on Zosyn. Continued on vitamin supplements. Eliquis for anticoagulation. Cultures revealed no growth. White count 9.5. Hemoglobin 10.8. Lymphocytes 0.5. Sodium 134. Potassium 4.0. BUN 27. Creatinine 0.57. Glucose 145. Procalcitonin 0.23. The patient is seen today 01/16/2022 in follow-up in the intensive care unit. She is a regular medical floor overflow. She is awake and alert in no acute distress. She is resting comfortably in bed. She is still requiring 15 L high flow nasal cannula to maintain O2 saturation in the 90s. She has normal saline at 20 ML's per hour.chest x-ray continues to show similar multifocal airspace opacities. Trace bilateral effusions. cultures revealed no growth. She completed a course of Zosyn. She was continued on vitamin supplements, IV Solu- Medrol, Symbicort, Spiriva, albuterol. Anticoagulated with Eliquis. The patient is seen today 01/17/2022 in follow-up in the intensive care unit. She is resting comfortably in bed. Awake and alert in no acute distress. She is still requiring 12 L high flow nasal cannula to maintain O2 saturations in the 90s. She has normal saline at 20 mL an hour. White count 11.5. Hemoglobin 10.7. Platelets 434. Sodium 136. Potassium 4.6. BUN 31. Creatinine 0.51. Glucose 141. AST 44. As ALT 42. Lymphocytes 0.5. She is continued on vitamin supplements, IV Solu-Medrol, Symbicort, Spiriva, albuterol, vitamin supplements. Anticoagulated with Eliquis. The patient is seen today 01/18/2022 in follow-up in the intensive care. She is awake and alert in no acute distress. She is down to 12 L high flow nasal cannula. No IV fluids. She is a MedSurg overflow. Blood cultures revealed no growth. No new labs today. If she is continued on Symbicort, albuterol, Spiriva, IV Solu-Medrol. Anticoagulated with Eliquis. Objective - Vital Signs Vital signs: Vital Signs Temp 97.4 F L 01/18/22 08:47 Pulse 78 01/18/22 08:47 Resp 14 01/18/22 08:47 BP 98/51 01/18/22 09:00 Pulse Ox 98 01/18/22 09:40 FiO2 60 01/13/22 16:00 Intake & Output 01/17/22 01/18/22 01/18/22 18:59 06:59 18:59 Intake Total 80 200 Balance 80 200 Weight 70.6 kg 70.6 kg Intake: IV 80 0.9 Normal Saline @ 10mL/ 80 hr KVO Oral 200 Other: Voiding Method Bedpan Bedpan External Catheter # Voids 3 1 ABP, PAP, CO, CI - Last Documented Arterial Blood Pressure 110/53 - Exam GENERAL EXAM: Alert, frail, 76-year-old female, on 12 L high flow nasal cannula, fairly comfortable in no apparent distress. HEAD: Normocephalic. EYES: Normal reaction of pupils, equal size. NOSE: Clear with pink turbinates. THROAT: No erythema or exudates. NECK: No masses, no JVD. CHEST: No chest wall deformity. LUNGS: Equal air entry with crackles in the bilateral bases. CVS: S1 and S2 normal with no audible murmur, irregular rhythm. ABDOMEN: No hepatosplenomegaly, normal bowel sounds, no guarding or rigidity. SPINE: No scoliosis or deformity SKIN: No rashes. Ecchymosis of the lower lumbar sacral area due to previous fall CENTRAL NERVOUS SYSTEM: No focal deficits, tone is normal in all 4 extremities. EXTREMITIES: There is no peripheral edema. No clubbing, no cyanosis. Peripheral pulses are intact. - Labs CBC & Chem 7: 01/17/22 05:30 01/17/22 05:30 Assessment and Plan Assessment: Acute hypoxic respiratory failure secondary to acute COVID-19 pneumonia, underlying bacterial pneumonia is very likely considering her chest x-ray findings and considering elevated pro calcitonin level. Completed a course of Zosyn. Possible interstitial lung disease/pulmonary fibrosis, likely contributing to her acute hypoxic respiratory failure Hypotension, secondary to sepsis/septic shock, septic and hypovolemic shock, currently off norepinephrine History of underlying COPD does not seem to be active at this point. But likely contributing to her hypoxic respiratory failure History of hypothyroidism History of generalized anxiety disorder Elevated d-dimer but negative venous Doppler for DVT, cannot perform CT rudolph ogram of the chest mostly because of her renal functioning Acute dehydration Acute kidney injury secondary to dehydration Paroxysmal atrial fibrillation, anticoagulated with Eliquis Plan: The patient was seen and evaluated Medications reviewed Continue the current treatment plan Titrate the FiO2 as tolerated Prognosis is guarded Awaiting transfer to the regular medical floor We will continue to follow I have personally seen and examined the patient, performed the documentation and the assessment and plan as written. Number of minutes spent on the visit: 10.
[2022-01-18 20:17] LABS: Glucose,Whole Blood 178 mg/dL (70-110)
[2022-01-18] MEDS: risperiDONE 2 MG TAB PO SCH (20:39)
--- NOTE | 2022-01-18 23:09 | P.PN ---
Subjective Progress Note Date: 01/10/22 Principal diagnosis: Sacral wound Patient is a 76-year old female with multiple comorbidities including COPD current 2 pack smoker hypothyroidism presented to the hospital with weakness patient also have a fall landed on her gluteal area and has developed a deep tissue injury to the sacral area and tested positive for COVID-19. On today's evaluation that is 01/10/2022 the patient remains to be afebrile patient is breathing slightly comfortably allowing has been requiring BiPAP the patient is sleepy records not available history no vomiting or diarrhea has been reported by the Nursing staff Objective - Vital Signs Vital signs: Vital Signs Temp 97.3 F L 01/10/22 12:00 Pulse 57 L 01/10/22 15:00 Resp 18 01/10/22 15:00 BP 98/58 01/09/22 04:00 Pulse Ox 92 L 01/10/22 15:00 FiO2 60 01/10/22 15:28 Intake & Output 01/09/22 01/10/22 01/10/22 18:59 06:59 18:59 Intake Total 1134.095 992.974 328 Output Total 1595 995 390 Balance -460.905 -2.026 -62 Weight 69.5 kg Intake: IV 476 456 328 0.9 Normal Saline @ 10mL/ 90 120 60 hr KVO 0.9NS Pressure Bag 36 36 18 Dextrose 5% in Water 1, 350 300 150 000 ml @ 25 mls/hr IV . Q24H [facility] with Sodium Bicarb (1 Meq/ml) 150 ml Rx#:[id number] Piperacillin-Tazobactam 3 100 .375 gm In Sodium Chloride 0.9% 100 ml @ 25 mls/hr IVPB Q8HR [facility] Rx# :[id number] Intake, IV Titration 658.095 386.974 Amount Heparin Sod,Pork in 0.45% 99.565 157.746 NaCl 25,000 unit In 0.45 % NaCl 1 250ml.bag @ 12 UNITS/KG/HR 7.348 mls/hr IV .Q24H [facility] Rx#: [id number] Norepinephrine 8 mg In 258.530 229.228 Sodium Chloride 0.9% 250 ml @ 0.03 MCG/KG/MIN 3. 947 mls/hr IV .Q24H [facility] Rx#:[id number] Piperacillin-Tazobactam 3 50 .375 gm In Sodium Chloride 0.9% 100 ml @ 25 mls/hr IVPB Q8HR [facility] Rx# :[id number] Remdesivir 100 mg In 250 Sodium Chloride 0.9% 250 ml @ 250 mls/hr IVPB DAILY@1600 [facility] Rx#: [id number] Oral 150 Output: Urine 1595 995 390 Other: Voiding Method Indwelling Catheter Indwelling Catheter Indwelling Catheter # Bowel Movements 1 1 ABP, PAP, CO, CI - Last Documented Arterial Blood Pressure 98/46 - Exam GENERAL DESCRIPTION: An elderly female lying in bed in no distress RESPIRATORY SYSTEM: Unlabored breathing , decreased breath sounds at bases HEART: S1 S2 regular rate and rhythm , ABDOMEN: Soft , no tenderness EXTREMITIES: No edema feet - Labs CBC & Chem 7: 01/12/22 05:30 01/12/22 05:30 Labs: Abnormal Lab Results - Last 24 Hours (Table) 01/09/22 01/10/22 01/10/22 Range/Units 19:00 04:00 04:00 WBC (3.8-10.6) k/uL Hgb (11.4-16.0) gm/dL Hct (34.0-46.0) % Neutrophils # (1.3-7.7) k/uL Lymphocytes # (1.0-4.8) k/uL Monocytes # (0-1.0) k/uL APTT 54.7 H 76.8 H (22.0-30.0) sec BUN 60 H (7-17) mg/dL Creatinine 1.12 H (0.52-1.04) mg/dL Glucose 147 H (74-99) mg/dL Calcium 7.3 L (8.4-10.2) mg/dL Total Protein 4.4 L (6.3-8.2) g/dL Albumin 2.1 L (3.5-5.0) g/dL 01/10/22 Range/Units 04:20 WBC 11.0 H (3.8-10.6) k/uL Hgb 10.8 L (11.4-16.0) gm/dL Hct 33.5 L (34.0-46.0) % Neutrophils # 9.2 H (1.3-7.7) k/uL Lymphocytes # 0.4 L (1.0-4.8) k/uL Monocytes # 1.2 H (0-1.0) k/uL APTT (22.0-30.0) sec BUN (7-17) mg/dL Creatinine (0.52-1.04) mg/dL Glucose (74-99) mg/dL Calcium (8.4-10.2) mg/dL Total Protein (6.3-8.2) g/dL Albumin (3.5-5.0) g/dL Microbiology - Last 24 Hours (Table) 01/07/22 13:56 Blood Culture - Preliminary Blood No Growth after 48 hours 01/07/22 13:56 Blood Culture - Preliminary Blood No Growth after 48 hours Assessment and Plan (1) Pressure ulcer of sacral region, stage 2 Current Visit: Yes Status: Acute Code(s): L89.152 - PRESSURE ULCER OF SACRAL REGION, STAGE 2 SNOMED Code(s): 44798464762439 Plan: 1patient with a deep tissue injury to the sacral area mostly bruising did not have significant open area or surrounding redness recommend local wound care by keeping the area dry and of the pressure and skin protective cream. 2patient with acute respiratory failure which is multifactorial concerning for possible pneumonia in this patient also tested positive for COVID however did have elevated procalcitonin superadded bacterial pneumonia not entirely excluded. 3 patient will continue with the Zosyn Heparin dexamethasone zinc and ascorbic acid. 5droplet isolation and respiratory support and monitor clinical course closely Time with Patient: Less than 30
--- NOTE | 2022-01-18 23:09 | P.PN ---
Subjective Progress Note Date: 01/11/22 Principal diagnosis: Sacral wound Patient is a 76-year old female with multiple comorbidities including COPD current 2 pack smoker hypothyroidism presented to the hospital with weakness patient also have a fall landed on her gluteal area and has developed a deep tissue injury to the sacral area and tested positive for COVID-19. On today's evaluation that is 01/11/2022 the patient continues to be afebrile patient is breathing comfortably requiring less FiO2 patient is awake and alert denies any chest pain and worsening cough no abdominal pain no diarrhea Objective - Vital Signs Vital signs: Vital Signs Temp 97.8 F 01/11/22 12:00 Pulse 57 L 01/11/22 14:00 Resp 12 01/11/22 14:00 BP 95/65 01/11/22 12:15 Pulse Ox 96 01/11/22 14:00 FiO2 50 01/11/22 12:00 Intake & Output 01/10/22 01/11/22 01/11/22 18:59 06:59 18:59 Intake Total 743.44 573.110 240.341 Output Total 710 770 250 Balance 33.44 -196.890 -9.659 Weight 68.723 kg 68.723 kg Intake: IV 518 356 190 0.9 Normal Saline @ 10mL/ 110 120 50 hr KVO 0.9NS Pressure Bag 33 36 15 Dextrose 5% in Water 1, 275 200 25 000 ml @ 25 mls/hr IV . Q24H [facility] with Sodium Bicarb (1 Meq/ml) 150 ml Rx#:[id number] Piperacillin-Tazobactam 3 100 100 .375 gm In Sodium Chloride 0.9% 100 ml @ 25 mls/hr IVPB Q8HR [facility] Rx# :[id number] Intake, IV Titration 225.44 217.110 50.341 Amount Norepinephrine 8 mg In 225.44 217.110 50.341 Sodium Chloride 0.9% 250 ml @ 0.03 MCG/KG/MIN 3. 947 mls/hr IV .Q24H [facility] Rx#:[id number] Output: Urine 710 770 250 Other: Voiding Method Indwelling Catheter Indwelling Catheter Indwelling Catheter ABP, PAP, CO, CI - Last Documented Arterial Blood Pressure 100/49 - Exam GENERAL DESCRIPTION: An elderly female lying in bed in no distress RESPIRATORY SYSTEM: Unlabored breathing , decreased breath sounds at bases HEART: S1 S2 regular rate and rhythm , ABDOMEN: Soft , no tenderness EXTREMITIES: No edema feet - Labs CBC & Chem 7: 01/12/22 05:30 01/12/22 05:30 Labs: Abnormal Lab Results - Last 24 Hours (Table) 01/11/22 01/11/22 Range/Units 03:57 03:57 Hgb 10.7 L (11.4-16.0) gm/dL Hct 33.3 L (34.0-46.0) % Lymphocytes # 0.7 L (1.0-4.8) k/uL BUN 45 H (7-17) mg/dL Glucose 133 H (74-99) mg/dL Calcium 7.3 L (8.4-10.2) mg/dL AST 37 H (14-36) U/L Total Protein 4.2 L (6.3-8.2) g/dL Albumin 1.9 L (3.5-5.0) g/dL Microbiology - Last 24 Hours (Table) 01/07/22 13:56 Blood Culture - Preliminary Blood No Growth after 72 hours 01/07/22 13:56 Blood Culture - Preliminary Blood No Growth after 72 hours Assessment and Plan (1) Pressure ulcer of sacral region, stage 2 Current Visit: Yes Status: Acute Code(s): L89.152 - PRESSURE ULCER OF SACRAL REGION, STAGE 2 SNOMED Code(s): 37705307149582 Plan: 1patient with a deep tissue injury to the sacral area mostly bruising did not have significant open area or surrounding redness recommend local wound care by keeping the area dry and of the pressure and skin protective cream. 2patient with acute respiratory failure which is multifactorial concerning for possible pneumonia in this patient also tested positive for COVID however did have elevated procalcitonin superadded bacterial pneumonia not entirely excluded. 3 patient has some clinical improvement and will continue with the Zosyn Heparin dexamethasone zinc and ascorbic acid. 5droplet isolation and respiratory support and monitor clinical course closely Time with Patient: Less than 30
--- NOTE | 2022-01-18 23:09 | P.PN ---
Subjective Progress Note Date: 01/09/22 Principal diagnosis: Sacral wound Patient is a 76-year old female with multiple comorbidities including COPD current 2 pack smoker hypothyroidism presented to the hospital with weakness patient also have a fall landed on her gluteal area and has developed a deep tissue injury to the sacral area and tested positive for COVID-19. On today's evaluation that is 01/09/2022 the patient is afebrile patient is currently on a 40% FiO2 requiring BiPAP patient is slightly lethargic and not a good historian no vomiting or diarrhea has been reported by nursing staff Objective - Vital Signs Vital signs: Vital Signs Temp 98 F 01/09/22 04:00 Pulse 70 01/09/22 11:00 Resp 22 01/09/22 11:00 BP 98/58 01/09/22 04:00 Pulse Ox 94 L 01/09/22 11:00 FiO2 50 01/09/22 11:11 Intake & Output 01/08/22 01/09/22 01/09/22 18:59 06:59 18:59 Intake Total 1332.055 969.182 492.214 Output Total 550 780 495 Balance 782.055 189.182 -2.786 Weight 68 kg 68.7 kg Intake: IV 215 696 235 0.9NS Pressure Bag 15 36 15 Dextrose 5% in Water 1, 550 200 000 ml @ 25 mls/hr IV . Q24H [facility] with Sodium Bicarb (1 Meq/ml) 150 ml Rx#:[id number] KVO 20 110 20 Sodium Chloride 0.9% 1, 180 0 000 ml @ 125 mls/hr IV . Q8H [facility] Rx#:[id number] Intake, IV Titration 1117.055 273.182 257.214 Amount Dextrose 5% in Water 1, 400 000 ml @ 25 mls/hr IV . Q24H [facility] with Sodium Bicarb (1 Meq/ml) 150 ml Rx#:[id number] Heparin Sod,Pork in 0.45% 88.330 156.514 NaCl 25,000 unit In 0.45 % NaCl 1 250ml.bag @ 12 UNITS/KG/HR 7.348 mls/hr IV .Q24H [facility] Rx#: [id number] Norepinephrine 4 mg In 452.800 Sodium Chloride 0.9% 250 ml @ 0.03 MCG/KG/MIN 7. 772 mls/hr IV .Q24H [facility] Rx#:[id number] Norepinephrine 8 mg In 125.925 91.668 207.214 Sodium Chloride 0.9% 250 ml @ 0.03 MCG/KG/MIN 3. 947 mls/hr IV .Q24H [facility] Rx#:[id number] Piperacillin-Tazobactam 3 50 25 50 .375 gm In Sodium Chloride 0.9% 100 ml @ 25 mls/hr IVPB Q8HR [facility] Rx# :[id number] Output: Urine 550 780 495 Other: Voiding Method Indwelling Catheter Indwelling Catheter Indwelling Catheter ABP, PAP, CO, CI - Last Documented Arterial Blood Pressure 95/46 - Exam GENERAL DESCRIPTION: An elderly female lying in bed in no distress RESPIRATORY SYSTEM: Unlabored breathing , decreased breath sounds at bases HEART: S1 S2 regular rate and rhythm , ABDOMEN: Soft , no tenderness EXTREMITIES: No edema feet - Labs CBC & Chem 7: 01/12/22 05:30 01/12/22 05:30 Labs: Abnormal Lab Results - Last 24 Hours (Table) 01/08/22 01/09/22 01/09/22 Range/Units 20:10 02:54 05:40 WBC (3.8-10.6) k/uL Hgb (11.4-16.0) gm/dL Plt Count (150-450) k/uL Neutrophils # (1.3-7.7) k/uL Lymphocytes # (1.0-4.8) k/uL APTT 37.9 H 75.9 H (22.0-30.0) sec Chloride 110 H (98-107) mmol/L BUN 63 H (7-17) mg/dL Creatinine 1.41 H (0.52-1.04) mg/dL Glucose 158 H (74-99) mg/dL Calcium 7.1 L (8.4-10.2) mg/dL Total Protein 4.2 L (6.3-8.2) g/dL Albumin 2.0 L (3.5-5.0) g/dL 01/09/22 01/09/22 Range/Units 05:40 09:34 WBC 14.8 H (3.8-10.6) k/uL Hgb 10.6 L (11.4-16.0) gm/dL Plt Count 489 H (150-450) k/uL Neutrophils # 13.2 H (1.3-7.7) k/uL Lymphocytes # 0.5 L (1.0-4.8) k/uL APTT 73.7 H (22.0-30.0) sec Chloride (98-107) mmol/L BUN (7-17) mg/dL Creatinine (0.52-1.04) mg/dL Glucose (74-99) mg/dL Calcium (8.4-10.2) mg/dL Total Protein (6.3-8.2) g/dL Albumin (3.5-5.0) g/dL Microbiology - Last 24 Hours (Table) 01/07/22 13:56 Blood Culture - Preliminary Blood No Growth after 24 hours 01/07/22 13:56 Blood Culture - Preliminary Blood No Growth after 24 hours Assessment and Plan (1) Pressure ulcer of sacral region, stage 2 Current Visit: Yes Status: Acute Code(s): L89.152 - PRESSURE ULCER OF SACRAL REGION, STAGE 2 SNOMED Code(s): 98157111760891 Plan: 1patient with a deep tissue injury to the sacral area mostly bruising did not have significant open area or surrounding redness recommend local wound care by keeping the area dry and of the pressure and skin protective cream. 2patient with acute respiratory failure which is multifactorial concerning for possible pneumonia in this patient also tested positive for COVID however did have elevated procalcitonin superadded bacterial pneumonia not entirely ex cluded. 3try to obtain a sputum for gram stain and culture. 4continue with the Zosyn Heparin dexamethasone zinc and ascorbic acid. 5droplet isolation and respiratory support. Time with Patient: Less than 30
[2022-01-19] MEDS: methylPREDNISolone SOD SUCCI 40 MG/ML 1 ML VIAL IV SCH ×4 (00:36→23:42)
[2022-01-19 06:04] LABS: Glucose,Whole Blood 150 mg/dL (70-110)
[2022-01-19] MEDS: SODIUM CHLORIDE 0.9% 1,000 ML IV SCH ×2 (06:49→23:42)
[2022-01-19] MEDS: LEVOTHYROXINE 88 MCG TAB PO SCH (06:57)
[2022-01-19] MEDS: APIXABAN 5 MG TAB PO SCH ×2 (08:48→20:05)
[2022-01-19] MEDS: PANTOPRAZOLE 40 MG/10 ML VIAL IV SCH (08:48)
[2022-01-19] MEDS: CHOLECALCIFEROL 25 MCG (1000 IU) TABLET PO SCH (08:48)
[2022-01-19] MEDS: ASCORBIC ACID 500 MG TAB PO SCH ×2 (08:48→20:06)
[2022-01-19] MEDS: CITALOPRAM HYDROBROMIDE 10 MG TAB PO SCH (08:48)
[2022-01-19] MEDS: ZINC SULFATE 220 MG CAP PO SCH (08:49)
[2022-01-19] MEDS: TIOTROPIUM 2.5 MCG INHALER INHALATION SCH (09:19)
[2022-01-19] MEDS: SYMBICORT 160-4.5 MCG INHALER INHALATION SCH ×2 (09:19→20:28)
[2022-01-19] MEDS: ALBUTEROL HFA INHALER INHALATION SCH ×4 (09:19→20:28)
--- NOTE | 2022-01-19 09:47 | P.PN ---
Subjective Progress Note Date: 01/19/22 Samantha Brown, is a 76-year-old female who presented to [facility] emergency room with a chief complaint of generalized weakness, patient's daughter reported in the emergency room that her mother had a fall 4 days prior to presentation She was evaluated in the emergency room vital examination on presentation revealed Laboratory data revealed a white blood count of 14.4 hemoglobin 12.2 platelet count 476 INR 1.2 d-dimer 3.94 sodium 129 potassium 5.1 chloride 99 CO2 23 BUN 76 creatinine 1.92 lactic acid 1.7 Corps on a virus PCR was positive Testing in the emergency room revealed chest x-ray done in emergency room revealed small bilateral pleural effusions and multifocal areas of increased reticular markings, EKG revealed atrial fibrillation with a heart rate of 86 Patient was admitted to medical floor for further evaluation and treatment. Past medical history is significant for history of hypertension, history of hyperlipidemia, history of hypothyroidism, and history of tobacco use patient smokes 2 packs per day On 01/08/2022 patient was seen and examined in the ICU she is alert responsive in mild distress due to shortness of breath, she was started on BiPAP during the night, she is maintained on norepinephrine for pressure support, she is also maintained on IV antibiotic Zosyn, input from cardiology and pulmonary review, patient's daughter Pily contacted over the phone and all questions answered to her satisfaction. On 01/09/2022 patient remains in the intensive care unit slightly improved. Patient remains on BiPAP. Creatinine improving to 1.41 bun 63. Patient remains on IV heparin. Patient also remains on sodium bicarb current vital signs heart rate 88, respiratory rate 19, blood pressure 108/51 patient satting 93% on BiPAP 40% FiO2. On 01/10/2022 patient was seen and examined in the ICU she is alert responsive in no apparent distress she is maintained on BiPAP, she is stating that her shortness of breath is improving she denies any chest pain there is no nausea or vomiting no abdominal pain no diarrhea and no urinary symptoms, however white blood count is 11 hemoglobin 10.8, BUN 60 creatinine 1.12 On 01/11/2022 patient was seen and examined in the ICU she is alert responsive in no apparent distress BiPAP was discontinued and patient was started on Airvo high flow oxygen she is still maintained on levophed for pressure support and this is being weaned down gradually. White blood count is down today to 7.5 BUN down to 45 creatinine 0.83 patient denies any chest pain or shortness of breath is improving, she is receiving IV antibiotic Zosyn she is also receiving Remdesevir for Covid-19 On 01/12/22, patient was seen and examined in the ICU, she is alert and oriented x 3, patient remains on airvo 55% FiO2, chest x-ray is showing some worsening today with interstitial infiltrates, possible interstitial edema. She remains on Decadron, she is also on eliquis, and she is on Zosyn. patient is still requiring norepinephrine On 01/13/2022 patient remains in the intensive care unit. Patient did require higher levels of irritable last night per nursing staff but is back down to 55%. Steroids were increased per pulmonary and critical care. Current vital signs temp 98.6, heart rate 75, respiratory rate 23, blood pressure 107/71 patient currently on 60% airflow satting 98% On 01/14/2022 patient was seen and examined in the ICU she is alert and oriented 3 in no apparent distress she is still maintained on high flow oxygen there is no fever or chills no headache or dizziness no chest pain she has occasional cough no nausea or vomiting no abdominal pain no diarrhea no blood in the stools, no urinary symptoms Wren catheter is in. On 01/15/2022 patient was seen and examined in the ICU she is alert and responsive in no apparent distress she is maintained on high flow oxygen at 15 L/m via nasal cannula there is no fever or chills no headache or dizziness no chest pain she has shortness of breath with any activity and occasional cough no nausea or vomiting no abdominal pain no diarrhea and no urinary symptoms is ma intained on IV Zosyn inhaled bronchodilators, inhaled steroids, and Eliquis, she is off pressure support at this time On 01/16/2022 patient remains in the intensive care unit. Patient remains on high flow 15 L. Patient remains off pressure support medication at this time. Current vital signs temp 97.7 heart rate 57, respiratory rate 17, blood pressure 100/62 sitting 90% on 15 L. On 01/17/2022 patient was seen and examined in the ICU, she is alert and oriented 3 in no apparent distress, she is still maintained on high flow oxygen at 15 L/m, she denies any chest pain, there is no fever or chills no headache or dizziness she has occasional cough no nausea or vomiting no abdominal pain no diarrhea and no urinary symptoms. Patient has poor oral intake, I was contacted today by the dietitian who recommended tube feeding due to patient consuming less then 25% of her meals, tube feeding was discussed in details with patient and at this time she is refusing, she stated that she will work on eating more of her meals. Nutrition supplements will be admitted On 01/18/2022 patient was seen and examined in the ICU, she is alert and oriented 3. Patient is weaning down in oxygen demand patient currently on high flow nasal cannula 10 L. Current vital signs temp 97.4, heart rate 78, res piratory rate 14, blood pressure 98/51. On 01/19/2022 patient was seen and examined on the telemetry floor she is alert and oriented in no apparent distress, she is sitting up in a chair, she is main tained on oxygen at 10 L via high flow nasal cannula, she is denying any complaints at this time there is no fever or chills no headache or dizziness no chest pain no shortness of breath at rest no cough no nausea or vomiting no abdominal pain no diarrhea no blood in the stools no burning with urination no frequency or urgency and no hematuria. She is still having severe weakness and is only able to pivot from her bed to her chair, physical therapy and occupational therapy are consulted, patient was encouraged to increase her oral intake. Objective - Vital Signs Vital signs: Vital Signs Temp 99.0 F 01/19/22 02:00 Pulse 79 01/19/22 02:00 Resp 17 01/19/22 02:00 BP 96/60 01/19/22 02:00 Pulse Ox 94 L 01/19/22 02:00 FiO2 60 01/13/22 16:00 Intake & Output 01/18/22 01/19/22 01/19/22 18:59 06:59 18:59 Intake Total 300 Output Total 800 400 Balance -500 -400 Weight 70.6 kg Intake: Oral 300 Output: Urine 800 400 Other: Voiding Method External Catheter External Catheter ABP, PAP, CO, CI - Last Documented Arterial Blood Pressure 110/53 - Exam In general patient is alert responsive maintained on on oxygen via high flow nasal cannula HEENT head normocephalic and atraumatic Neck is supple no JVD no goiter no lymphadenopathy no carotid bruit Chest examination reveals a scattered crackles bilaterally with mild wheezing Cardiac exam reveals regular heart sounds S1 and S2 no gallops no murmurs Abdomen is soft nontender no organomegaly with normal bowel sounds Extremity exam reveals no edema no cyanosis or clubbing, poor pulses peripherally Neurological examination reveals no gross focal deficits - Labs CBC & Chem 7: 01/17/22 05:30 01/17/22 05:30 Labs: Abnormal Lab Results - Last 24 Hours (Table) 01/18/22 01/19/22 Range/Units 20:15 06:04 POC Glucose (mg/dL) 178 H 150 H (70-110) mg/dL Assessment and Plan Plan: Acute hypoxic respiratory failure, improving patient transferred out of ICU. Acute coronary 19 pneumonia Underlying history of chronic obstructive pulmonary disease Sepsis as evidenced by leukocytosis, tachycardia, mild elevation in lactic acid and hypotension Elevated d-dimer Acute kidney injury possibly related to dehydration and prerenal azotemia, will monitor kidney function Underlying history of hypertension Underlying history of hypothyroidism Chronic tobacco use patient smokes up to 2 packs per day Persistent atrial fibrillation with controlled heart rate patient has been switched to oral anticoagulation with eliquis At this time patient is admitted to intensive care unit Pulmonary, vascular surgery, and cardiology consultation requested Patient started on IV antibiotics, IV a Remdesevir, IV steroids and inhaled bronchodilators Medication and labs reviewed will follow closely Prognosis is guarded due to severity of illness
[2022-01-19 11:30] LABS: Glucose,Whole Blood 210 mg/dL (70-110)
--- NOTE | 2022-01-19 13:51 | P.PN ---
Subjective Progress Note Date: 01/19/22 This is a 76-year-old female who is not a great historian, her daughter is at bedside, patient is known to have history of hypothyroidism, COPD, history generalized anxiety disorder, patient has been weak for the last few days. According to the daughter, patient fell 4 days ago, and has been complaining of pain to her buttocks. Patient also had some intermittent cough, shortness of breath, and according to the daughter the patient has not been taking her medications including her thyroid medicine and her Combivent for COPD. Patient is a heavy smoker, she smoked 2 packs a day for many years. Does not use oxygen at home. Workup in the ER included a CBC which showed leukocytosis. Elevated d-dimer of 3.94. Abnormal renal profile with a BUN of 76 creatinine of 1.92 and low sodium of 129, elevated BNP level of 2580, normal troponin, and normal liver enzymes. Patient was also noted to have positive PCR for COVID-19, chest x-ray showed multifocal reticular markings and multifocal atypical infiltrates. Possible underlying pulmonary fibrosis. No old x-ray for comparison. Patient was also noted to be relatively hypotensive requiring fluid boluses with slight improvement of the blood pressure. I saw this patient in the ER, and I recommended admitting the patient to the ICU. In the meantime I ordered a high- resolution CT of the chest, started the patient on Remdesivir, patient is on 6 L nasal cannula, recommended fluid boluses, empiric antibiotics, pro-calcitonin level is pending, and order the COVID-19 cocktail. Reevaluated today on 01/08/22, patient remains in the ICU, her condition became a bit worse overnight, patient had to be placed on BiPAP, and she is now on BiPAP FiO2 of 50% IPAP 16 and EPAP of 6 I was able to cut down her FiO2 to 45% and her IPAP 10-14 EPAP remains at 6. Patient is requiring norepinephrine for low blood pressure, hence this is clearly a presentation of septic shock. Patient is requiring norepinephrine at 0.38 mcg/kg/m, her IV fluid went down to KVO after she received 4 L of fluids last night, felt that the patient was over hydrated, and her urine output picked up last night and I was notified about her worsening pulmonary status recommended Lasix dose earlier today with good response to the Lasix. Her creatinine is improving when down from 1.92-1.70 today. Bicarb remains low at 14 on him recommending a bicarb drip. Today I was able to establish a triple-lumen catheter and arterial line and the patient, her pro calcitonin was noted to be high at 5.47, patient was initially placed on vancomycin and Zosyn, blood cultures are negative so far, I'm recommending that we continue Zosyn, discontinue vancomycin, and recommending infectious disease consultation. I'm also recommending a CT of the lumbosacral spine since the patient has significant area of ecchymosis in the buttock area and low back. Apparently she fell 4 days ago. And she had significant amount of pain. The ER physician ordered a thoracic spine CT but did not address the lumbar spine area which seems to be the area of pain and the area of trauma. Patient remains on the COVID-19 cocktail. And I started the patient yesterday on Remdesivir. Since her symptoms were recent within the therapeutic window. WBC count is 20.2 hemoglobin is 12.5. Electrodes are normal except elevated potassium and that will improve with bicarbonate drip. Renal profile as noted earlier. Pro- calcitonin level is very high at 5.47 Reevaluated today on , patient remains in the ICU, remains on BiPAP, FiO2 40%, IPAP of 14 EPAP of 6. Remains on small dose of norepinephrine at 0.1 mcg/kg/m, patient remains on bicarb drip, I cut it down to 25 mL per hour today. Yesterday she had ultrasound of the gallbladder showing mostly cholelithiasis but no cholecystitis. Patient had negative CT of the lumbar spine. Remains on Zosyn empirically since her pro calcitonin level was quite high. She has better urine output, 35-50 mL per hour. Planning today to change from BiPAP possibly to airvo. Planning to gently diurese the patient, her chest x-ray is not showing much of a change in her bilateral interstitial infiltrates, and again I strongly suspect ongoing interstitial lung disease. WBC count 14.8 hemoglobin is 10.6, PTT is 73.7, patient remains on heparin. Basic metabolic profile is normal, BUN is 63 and creatinine 1.41. Reevaluated today on 01/10/22, patient remains in the ICU, remains on BiPAP, she is on 40% FiO2 IPAP of 12 EPAP of 5 Reed seems to be comfortable, and not in distress. Feeling better. Remains on heparin and she remains on norepinephrine at 0.1 mcg/kg/m. Today I am changes heparin to eliquis which she took on outpatient basis. Chest x-ray continues to show interstitial lung disease and interstitial infiltrates. Clinically the patient is feeling better. Her renal functioning is almost back to normal. Continues to have good urine output with diuresis. BUN is down to 60 creatinine is down to 1.12 patient remains on Remdesivir she remains on the COVID-19 cocktail. Reevaluated today on 01/11/22 patient remains in the ICU, she is now on airvo S 50% FiO2 and 60 L flow, saturating in the mid 90s, patient is still requiring n orepinephrine at 0.12 mcg/kg/m. Remains on her day #5 of Remdesivir, she is also on Decadron, eliquis, and multivitamins, patient is also on Zosyn for empiric treatment of superimposed bacterial infection/pneumonia considering that her pro calcitonin level was quite high on admission. Overall clinically the patient is improving but very slowly. WBC count is 7.5 hemoglobin is 10.7. Electrodes are normal renal profile is basically back to normal her creatinine is now 0.83. Reevaluated today on 02/08/22, patient remains in the ICU, remains relatively critically ill, patient is still requiring norepinephrine at 0.08 mcg/kg/m, patient remains on airvo at 55 L and 55% FiO2, chest x-ray is showing some worsening today with interstitial infiltrates, possible interstitial edema, hence I recommended a dose of Lasix 40 mg IV push, and the patient had significant urine output after the Lasix given. She remains on Decadron, she is also on eliquis, and she is on Zosyn. Her echocardiogram showed good LV function, however I am planning to keep the patient on the dry side considering her underlying COVID-19 pneumonia and her underlying interstitial lung disease. WBC count is 9 hemoglobin is 10.8 electrolytes are normal renal profile is normal, blood cultures remain negative. Pro-calcitonin level on admission was elevated. Reevaluated today on 01/13/22, patient remains in the ICU, remains critically ill, she remains on high flow oxygen via airflow, she is on 60% FiO2 and 60 L flow. Patient doesn't respond to diuretics quite well, however her chest x-ray is not showing much improvement, I strongly believe that we are dealing with COVID-19 pneumonia along with interstitial lung disease/pulmonary fibrosis. Not much of a change in the last 24 hours, patient is still on antibiotics empirically because of her pro calcitonin level was elevated, she is still on diuretics as needed, she still requiring norepinephrine at 0.05 mcg/kg/m. Patient remains marginal at best, and I have no plans to transfer the patient out of the ICU at this point yet. She may eventually require a PICC line placement she does have a central access test present but needs to be changed to a PICC line. The patient is seen today 01/14/2022 in follow-up in the intensive care unit. She was admitted back on 01/07/2022 for COPD exacerbation and COVID-19 19 pneumonia. She remains on 15 L high flow nasal cannula to maintain O2 saturations in the 90s. Normal saline at 20 ML's per hour. She is currently off norepinephrine. She has completed a course of Remdesivir. She remains on Symbicort, Spiriva, IV Solu-Medrol, Albuterol HFA, vitamin supplements. She remains on antibiotics in the form of Zosyn. She is anticoagulated with Eliquis. She has been slow to progress. Blood cultures revealed no growth. White count 9.6. Hemoglobin 10.7. Lymphocytes 0.5. Sodium 135. Potassium 4.2. BUN 22. Creatinine 0.58. Glucose 150. Follow-up pro calcitonin pending. The patient is seen today 01/15/2022 in follow-up in the intensive care unit. She is currently resting fairly comfortably in bed. Awake and alert. She is on 15 L high flow nasal cannula. She has normal sitting at 20 mL per hour. She was continued on Symbicort, albuterol, IV Solu-Medrol. Maintained on Zosyn. Continued on vitamin supplements. Eliquis for anticoagulation. Cultures revealed no growth. White count 9.5. Hemoglobin 10.8. Lymphocytes 0.5. Sodium 134. Potassium 4.0. BUN 27. Creatinine 0.57. Glucose 145. Procalcitonin 0.23. The patient is seen today 01/16/2022 in follow-up in the intensive care unit. She is a regular medical floor overflow. She is awake and alert in no acute distress. She is resting comfortably in bed. She is still requiring 15 L high flow nasal cannula to maintain O2 saturation in the 90s. She has normal saline at 20 ML's per hour.chest x-ray continues to show similar multifocal airspace opacities. Trace bilateral effusions. cultures revealed no growth. She completed a course of Zosyn. She was continued on vitamin supplements, IV Solu- Medrol, Symbicort, Spiriva, albuterol. Anticoagulated with Eliquis. The patient is seen today 01/17/2022 in follow-up in the intensive care unit. She is resting comfortably in bed. Awake and alert in no acute distress. She is still requiring 12 L high flow nasal cannula to maintain O2 saturations in the 90s. She has normal saline at 20 mL an hour. White count 11.5. Hemoglobin 10.7. Platelets 434. Sodium 136. Potassium 4.6. BUN 31. Creatinine 0.51. Glucose 141. AST 44. As ALT 42. Lymphocytes 0.5. She is continued on vitamin supplements, IV Solu-Medrol, Symbicort, Spiriva, albuterol, vitamin supplements. Anticoagulated with Eliquis. The patient is seen today 01/18/2022 in follow-up in the intensive care. She is awake and alert in no acute distress. She is down to 12 L high flow nasal cannula. No IV fluids. She is a MedSurg overflow. Blood cultures revealed no growth. No new labs today. If she is continued on Symbicort, albuterol, Spiriva, IV Solu-Medrol. Anticoagulated with Eliquis. The patient is seen today 01/19/2022 in follow-up on the regular medical floor. She is currently resting comfortably in bed. Awake and alert in no acute distress. She is maintaining O2 saturations in the low 90s on 8 L high flow nasal cannula. Blood glucose 210. She is continued on Symbicort, Spiriva, albuterol, IV Solu-Medrol. Anticoagulated with Eliquis. Remains on vitamin supplements. Objective - Vital Signs Vital signs: Vital Signs Temp 97.7 F 01/19/22 13:39 Pulse 80 01/19/22 13:39 Resp 20 01/19/22 13:39 BP 100/66 01/19/22 13:39 Pulse Ox 96 01/19/22 13:39 FiO2 60 01/13/22 16:00 Intake & Output 01/18/22 01/19/22 01/19/22 18:59 06:59 18:59 Intake Total 300 Output Total 800 400 350 Balance -500 -400 -350 Weight 70.6 kg Intake: Oral 300 Output: Urine 800 400 350 Other: Voiding Method External Catheter External Catheter External Catheter ABP, PAP, CO, CI - Last Documented Arterial Blood Pressure 110/53 - Exam GENERAL EXAM: Alert, frail, 76-year-old female, on 8 L high flow nasal cannula, comfortable in no apparent distress. HEAD: Normocephalic. EYES: Normal reaction of pupils, equal size. NOSE: Clear with pink turbinates. THROAT: No erythema or exudates. NECK: No masses, no JVD. CHEST: No chest wall deformity. LUNGS: Equal air entry with crackles in the bilateral bases. CVS: S1 and S2 normal with no audible murmur, irregular rhythm. ABDOMEN: No hepatosplenomegaly, normal bowel sounds, no guarding or rigidity. SPINE: No scoliosis or deformity SKIN: No rashes. Ecchymosis of the lower lumbar sacral area due to previous fall CENTRAL NERVOUS SYSTEM: No focal deficits, tone is normal in all 4 extremities. EXTREMITIES: There is no peripheral edema. No clubbing, no cyanosis. Peripheral pulses are intact. - Labs CBC & Chem 7: 01/17/22 05:30 01/17/22 05:30 Labs: Abnormal Lab Results - Last 24 Hours (Table) 01/18/22 01/19/22 01/19/22 Range/Units 20:15 06:04 11:29 POC Glucose (mg/dL) 178 H 150 H 210 H (70-110) mg/dL Assessment and Plan Assessment: Acute hypoxic respiratory failure secondary to acute COVID-19 pneumonia, underlying bacterial pneumonia is very likely considering her chest x-ray findings and considering elevated pro calcitonin level. Completed a course of Zosyn. Currently on 8 L high flow nasal cannula. Possible interstitial lung disease/pulmonary fibrosis, likely contributing to her acute hypoxic respiratory failure Hypotension, secondary to sepsis/septic shock, septic and hypovolemic shock, currently off norepinephrine History of underlying COPD does not seem to be active at this point. But likely contributing to her hypoxic respiratory failure History of hypothyroidism History of generalized anxiety disorder Elevated d-dimer but negative venous Doppler for DVT, cannot perform CT angiogram of the chest mostly because of her renal functioning Acute dehydration Acute kidney injury secondary to dehydration Paroxysmal atrial fibrillation, anticoagulated with Eliquis Plan: The patient was seen and evaluated Medications reviewed Continue the current treatment plan Titrate the FiO2 as tolerated We will continue to follow I have personally seen and examined the patient, performed the documentation and the assessment and plan as written. Number of minutes spent on the visit: 10.
[2022-01-19 16:29] LABS: Glucose,Whole Blood 138 mg/dL (70-110)
[2022-01-19] MEDS: risperiDONE 2 MG TAB PO SCH (20:05)
[2022-01-19 21:10] LABS: Glucose,Whole Blood 227 mg/dL (70-110)
[2022-01-20 06:17] LABS: Glucose,Whole Blood 155 mg/dL (70-110)
[2022-01-20] MEDS: LEVOTHYROXINE 75 MCG TAB PO SCH (06:32)
--- NOTE | 2022-01-20 07:49 | P.PN ---
Subjective Progress Note Date: 01/20/22 Samantha Brown, is a 76-year-old female who presented to [facility] emergency room with a chief complaint of generalized weakness, patient's daughter reported in the emergency room that her mother had a fall 4 days prior to presentation She was evaluated in the emergency room vital examination on presentation revealed Laboratory data revealed a white blood count of 14.4 hemoglobin 12.2 platelet count 476 INR 1.2 d-dimer 3.94 sodium 129 potassium 5.1 chloride 99 CO2 23 BUN 76 creatinine 1.92 lactic acid 1.7 Corps on a virus PCR was positive Testing in the emergency room revealed chest x-ray done in emergency room revealed small bilateral pleural effusions and multifocal areas of increased reticular markings, EKG revealed atrial fibrillation with a heart rate of 86 Patient was admitted to medical floor for further evaluation and treatment. Past medical history is significant for history of hypertension, history of hyperlipidemia, history of hypothyroidism, and history of tobacco use patient smokes 2 packs per day On 01/08/2022 patient was seen and examined in the ICU she is alert responsive in mild distress due to shortness of breath, she was started on BiPAP during the night, she is maintained on norepinephrine for pressure support, she is also maintained on IV antibiotic Zosyn, input from cardiology and pulmonary review, patient's daughter Pily contacted over the phone and all questions answered to her satisfaction. On 01/09/2022 patient remains in the intensive care unit slightly improved. Patient remains on BiPAP. Creatinine improving to 1.41 bun 63. Patient remains on IV heparin. Patient also remains on sodium bicarb current vital signs heart rate 88, respiratory rate 19, blood pressure 108/51 patient satting 93% on BiPAP 40% FiO2. On 01/10/2022 patient was seen and examined in the ICU she is alert responsive in no apparent distress she is maintained on BiPAP, she is stating that her shortness of breath is improving she denies any chest pain there is no nausea or vomiting no abdominal pain no diarrhea and no urinary symptoms, however white blood count is 11 hemoglobin 10.8, BUN 60 creatinine 1.12 On 01/11/2022 patient was seen and examined in the ICU she is alert responsive in no apparent distress BiPAP was discontinued and patient was started on Airvo high flow oxygen she is still maintained on levophed for pressure support and this is being weaned down gradually. White blood count is down today to 7.5 BUN down to 45 creatinine 0.83 patient denies any chest pain or shortness of breath is improving, she is receiving IV antibiotic Zosyn she is also receiving Remdesevir for Covid-19 On 01/12/22, patient was seen and examined in the ICU, she is alert and oriented x 3, patient remains on airvo 55% FiO2, chest x-ray is showing some worsening today with interstitial infiltrates, possible interstitial edema. She remains on Decadron, she is also on eliquis, and she is on Zosyn. patient is still requiring norepinephrine On 01/13/2022 patient remains in the intensive care unit. Patient did require higher levels of irritable last night per nursing staff but is back down to 55%. Steroids were increased per pulmonary and critical care. Current vital signs temp 98.6, heart rate 75, respiratory rate 23, blood pressure 107/71 patient currently on 60% airflow satting 98% On 01/14/2022 patient was seen and examined in the ICU she is alert and oriented 3 in no apparent distress she is still maintained on high flow oxygen there is no fever or chills no headache or dizziness no chest pain she has occasional cough no nausea or vomiting no abdominal pain no diarrhea no blood in the stools, no urinary symptoms Wren catheter is in. On 01/15/2022 patient was seen and examined in the ICU she is alert and responsive in no apparent distress she is maintained on high flow oxygen at 15 L/m via nasal cannula there is no fever or chills no headache or dizziness no chest pain she has shortness of breath with any activity and occasional cough no nausea or vomiting no abdominal pain no diarrhea and no urinary symptoms is ma intained on IV Zosyn inhaled bronchodilators, inhaled steroids, and Eliquis, she is off pressure support at this time On 01/16/2022 patient remains in the intensive care unit. Patient remains on high flow 15 L. Patient remains off pressure support medication at this time. Current vital signs temp 97.7 heart rate 57, respiratory rate 17, blood pressure 100/62 sitting 90% on 15 L. On 01/17/2022 patient was seen and examined in the ICU, she is alert and oriented 3 in no apparent distress, she is still maintained on high flow oxygen at 15 L/m, she denies any chest pain, there is no fever or chills no headache or dizziness she has occasional cough no nausea or vomiting no abdominal pain no diarrhea and no urinary symptoms. Patient has poor oral intake, I was contacted today by the dietitian who recommended tube feeding due to patient consuming less then 25% of her meals, tube feeding was discussed in details with patient and at this time she is refusing, she stated that she will work on eating more of her meals. Nutrition supplements will be admitted On 01/18/2022 patient was seen and examined in the ICU, she is alert and oriented 3. Patient is weaning down in oxygen demand patient currently on high flow nasal cannula 10 L. Current vital signs temp 97.4, heart rate 78, res piratory rate 14, blood pressure 98/51. On 01/19/2022 patient was seen and examined on the telemetry floor she is alert and oriented in no apparent distress, she is sitting up in a chair, she is main tained on oxygen at 10 L via high flow nasal cannula, she is denying any complaints at this time there is no fever or chills no headache or dizziness no chest pain no shortness of breath at rest no cough no nausea or vomiting no abdominal pain no diarrhea no blood in the stools no burning with urination no frequency or urgency and no hematuria. She is still having severe weakness and is only able to pivot from her bed to her chair, physical therapy and occupational therapy are consulted, patient was encouraged to increase her oral intake. On 01/20/2022 patient was seen and examined on the medical floor she is alert and oriented 3 in no apparent distress she is still maintained on oxygen at 8 L via nasal cannula, she is feeling better, there is no fever or chills no headache or dizziness no chest pain no shortness of breath at rest she has occasional cough no nausea or vomiting no abdominal pain no diarrhea no blood in the stools no burning with urination no frequency or urgency and no hematuria, physical therapy and occupational therapy are consulted, patient was encouraged to increase her oral intake. Objective - Vital Signs Vital signs: Vital Signs Temp 97.8 F 01/20/22 02:00 Pulse 80 01/20/22 02:00 Resp 20 01/20/22 02:00 BP 107/66 01/20/22 02:00 Pulse Ox 96 12/11/22 02:00 FiO2 60 01/13/22 16:00 Intake & Output 01/19/22 01/20/22 01/20/22 18:59 06:59 18:59 Intake Total 200 Output Total 650 Balance -650 200 Intake: Oral 200 Output: Urine 650 Other: Voiding Method External Catheter External Catheter # Voids 2 ABP, PAP, CO, CI - Last Documented Arterial Blood Pressure 110/53 - Exam In general patient is alert responsive maintained on on oxygen via high flow nasal cannula HEENT head normocephalic and atraumatic Neck is supple no JVD no goiter no lymphadenopathy no carotid bruit Chest examination reveals a scattered crackles bilaterally with mild wheezing Cardiac exam reveals regular heart sounds S1 and S2 no gallops no murmurs Abdomen is soft nontender no organomegaly with normal bowel sounds Extremity exam reveals no edema no cyanosis or clubbing, poor pulses peripherally Neurological examination reveals no gross focal deficits - Labs CBC & Chem 7: 01/17/22 05:30 01/17/22 05:30 Labs: Abnormal Lab Results - Last 24 Hours (Table) 01/19/22 01/19/22 01/19/22 Range/Units 11:29 16:28 21:09 POC Glucose (mg/dL) 210 H 138 H 227 H (70-110) mg/dL 01/20/22 Range/Units 06:16 POC Glucose (mg/dL) 155 H (70-110) mg/dL Assessment and Plan Plan: Acute hypoxic respiratory failure, improving patient transferred out of ICU. Acute coronary 19 pneumonia Underlying history of chronic obstructive pulmonary disease Sepsis as evidenced by leukocytosis, tachycardia, mild elevation in lactic acid and hypotension Elevated d-dimer Acute kidney injury possibly related to dehydration and prerenal azotemia, will monitor kidney function Underlying history of hypertension Underlying history of hypothyroidism Chronic tobacco use patient smokes up to 2 packs per day Persistent atrial fibrillation with controlled heart rate patient has been switched to oral anticoagulation with eliquis At this time patient is admitted to intensive care unit Pulmonary, vascular surgery, and cardiology consultation requested Patient started on IV antibiotics, IV a Remdesevir, IV steroids and inhaled bronchodilators Medication and labs reviewed will follow closely Prognosis is guarded due to severity of illness
[2022-01-20] MEDS: APIXABAN 5 MG TAB PO SCH ×2 (08:58→20:30)
[2022-01-20] MEDS: CHOLECALCIFEROL 25 MCG (1000 IU) TABLET PO SCH (08:58)
[2022-01-20] MEDS: ZINC SULFATE 220 MG CAP PO SCH (08:58)
[2022-01-20] MEDS: PANTOPRAZOLE 40 MG/10 ML VIAL IV SCH (08:58)
[2022-01-20] MEDS: methylPREDNISolone SOD SUCCI 40 MG/ML 1 ML VIAL IV SCH ×3 (08:58→23:56)
[2022-01-20] MEDS: ASCORBIC ACID 500 MG TAB PO SCH ×2 (08:59→20:30)
[2022-01-20] MEDS: CITALOPRAM HYDROBROMIDE 10 MG TAB PO SCH (08:59)
[2022-01-20] MEDS: SYMBICORT 160-4.5 MCG INHALER INHALATION SCH ×2 (09:11→20:39)
[2022-01-20] MEDS: ALBUTEROL HFA INHALER INHALATION SCH ×4 (09:11→20:39)
[2022-01-20] MEDS: TIOTROPIUM 2.5 MCG INHALER INHALATION SCH (09:12)
[2022-01-20 10:59] LABS: Basophils # (A) 0.01 X 10*3/uL (0.00-0.10); Basophils % (A) 0.1 %; Eosinophils # (A) 0 X 10*3/uL (0.04-0.35); Eosinophils % (A) 0 %; HCT 29.6 % (37.2-46.3); HGB 9.5 g/dL (12.0-15.0); Immature Grans, Automated 0.6 %; Lymphocytes # (A) 0.66 X 10*3/uL (0.90-5.00); Lymphocytes % (A) 4.5 %; MCH 27.8 pg (27.0-32.0); MCHC 32.1 g/dL (32.0-37.0); MCV 86.5 fL (80.0-97.0); Mean Platelet Volume 9.9 fL (9.5-12.2); Monocytes # (A) 0.51 X 10*3/uL (0.20-1.00); Monocytes % (A) 3.5 %; NRBC Per 100 WBC 0 /100 WBCS (0.0-0.0); Neutrophils # (A) 13.39 X 10*3/uL (1.80-7.70); Neutrophils % (A) 91.3 %; Platelet Count 390 X 10*3/uL (140-440); RBC 3.42 X 10*6/uL (4.10-5.20); WBC 14.66 X 10*3/uL (4.50-10.00)
[2022-01-20 11:12] LABS: African American GFR (CKD) 109.7 (60.0-200.0); Albumin 2.5 g/dL (3.8-4.9); Albumin/Globulin Ratio 1.32 (1.60-3.17); Anion Gap 6.8 mmol/L (10.00-18.00); BUN/Creat Ratio 52.8 Ratio (12.00-20.00); Blood Urea Nitrogen 26.4 mg/dL (9.0-27.0); Calcium 8.4 mg/dL (8.7-10.3); Carbon Dioxide 32.2 mmol/L (20.0-27.5); Globulin 1.9 g/dL (1.6-3.3); Non-African American GFR(CKD) 94.7 (60.0-200.0); Potassium 4.2 mmol/L (3.5-5.5); Total Bilirubin 0.4 mg/dL (0.30-1.20); Total Protein 4.4 g/dL (6.2-8.2)
[2022-01-20 11:29] LABS: Glucose,Whole Blood 152 mg/dL (70-110)
--- NOTE | 2022-01-20 12:41 | P.PN ---
Subjective Progress Note Date: 01/20/22 Principal diagnosis: Shortness of breath. The patient is seen today 01/17/2022 in follow-up in the intensive care unit. She is resting comfortably in bed. Awake and alert in no acute distress. She is still requiring 12 L high flow nasal cannula to maintain O2 saturations in t he 90s. She has normal saline at 20 mL an hour. White count 11.5. Hemoglobin 10.7. Platelets 434. Sodium 136. Potassium 4.6. BUN 31. Creatinine 0.51. Glucose 141. AST 44. As ALT 42. Lymphocytes 0.5. She is continued on vitamin supplements, IV Solu-Medrol, Symbicort, Spiriva, albuterol, vitamin supplements. Anticoagulated with Eliquis. The patient is seen today 01/18/2022 in follow-up in the intensive care. She is awake and alert in no acute distress. She is down to 12 L high flow nasal cannula. No IV fluids. She is a MedSurg overflow. Blood cultures revealed no growth. No new labs today. If she is continued on Symbicort, albuterol, Spiriva, IV Solu-Medrol. Anticoagulated with Eliquis. The patient is seen today 01/19/2022 in follow-up on the regular medical floor. She is currently resting comfortably in bed. Awake and alert in no acute distress. She is maintaining O2 saturations in the low 90s on 8 L high flow nasal cannula. Blood glucose 210. She is continued on Symbicort, Spiriva, albuterol, IV Solu-Medrol. Anticoagulated with Eliquis. Remains on vitamin supplements. Progress note dated 01/20/2022. The patient is seen in room 450. The patient appears reasonably stable. She is down to 8 L of oxygen. She was on much higher oxygen concentrations when she was in the ICU. She's not receiving any IV fluids. She is in no respiratory distress. She is a DO NOT RESUSCITATE patient. Laboratory data today includes a white count of 14.7, hemoglobin 9.5, hematocrit 29.6, and a platelet count 390,000. Sodium 138, potassium 4.2, chlorides 99, CO2 32, BUN 26, and creatinine 0.5. Objective - Vital Signs Vital signs: Vital Signs Temp 97.3 F L 01/20/22 08:00 Pulse 68 01/20/22 08:00 Resp 18 01/20/22 08:00 BP 96/58 01/20/22 08:00 Pulse Ox 94 L 01/20/22 08:00 FiO2 60 01/13/22 16:00 Intake & Output 01/19/22 01/20/22 01/20/22 18:59 06:59 18:59 Intake Total 200 Output Total 650 Balance -650 200 Intake: Oral 200 Output: Urine 650 Other: Voiding Method External Catheter External Catheter External Catheter # Voids 2 ABP, PAP, CO, CI - Last Documented Arterial Blood Pressure 110/53 - Exam No acute distress, oriented 3. Currently on 8 L high flow oxygen. HEENT examination is grossly unremarkable. Neck supple. Full range of motion. No adenopathy thyromegaly or neck vein distention. Cardiovascular examination reveals regular rhythm rate. S1-S2 normal. No S3 or S4. No discernible murmur noted. Heart rate 80 bpm. Lungs reveal coarse bilateral breath sounds. Breath sounds equal. Mild bibasilar crackles. No wheezes. 8 L saturation is 94%. Abdomen soft bowel sounds are heard. No masses or tenderness. Extremities are intact. No cyanosis clubbing or edema. Skin is without rash or lesion. Neurologic examination is brief but nonfocal. - Labs CBC & Chem 7: 01/20/22 07:26 01/20/22 07:26 Labs: Abnormal Lab Results - Last 24 Hours (Table) 01/19/22 01/19/22 01/20/22 Range/Units 16:28 21:09 06:16 WBC (4.50-10.00) X 10*3/uL RBC (4.10-5.20) X 10*6/uL Hgb (12.0-15.0) g/dL Hct (37.2-46.3) % RDW (11.5-14.5) % Immature Gran # (0.00-0.04) X 10*3/uL Neutrophils # (1.80-7.70) X 10*3/uL Lymphocytes # (0.90-5.00) X 10*3/uL Eosinophils # (0.04-0.35) X 10*3/uL Carbon Dioxide (20.0-27.5) mmol/L Anion Gap (10.00-18.00) mmol/L Creatinine (0.6-1.5) mg/dL BUN/Creatinine Ratio (12.00-20.00) Ratio Glucose (70-110) mg/dL POC Glucose (mg/dL) 138 H 227 H 155 H (70-110) mg/dL Calcium (8.7-10.3) mg/dL Total Protein (6.2-8.2) g/dL Albumin (3.8-4.9) g/dL Albumin/Globulin Ratio (1.60-3.17) g/dL 01/20/22 01/20/22 01/20/22 Range/Units 07:26 07:26 11:28 WBC 14.66 H (4.50-10.00) X 10*3/uL RBC 3.42 L (4.10-5.20) X 10*6/uL Hgb 9.5 L (12.0-15.0) g/dL Hct 29.6 L (37.2-46.3) % RDW 16.0 H (11.5-14.5) % Immature Gran # 0.09 H (0.00-0.04) X 10*3/uL Neutrophils # 13.39 H (1.80-7.70) X 10*3/uL Lymphocytes # 0.66 L (0.90-5.00) X 10*3/uL Eosinophils # 0 L (0.04-0.35) X 10*3/uL Carbon Dioxide 32.2 H (20.0-27.5) mmol/L Anion Gap 6.80 L (10.00-18.00) mmol/L Creatinine 0.5 L (0.6-1.5) mg/dL BUN/Creatinine Ratio 52.80 H (12.00-20.00) Ratio Glucose 119 H (70-110) mg/dL POC Glucose (mg/dL) 152 H (70-110) mg/dL Calcium 8.4 L (8.7-10.3) mg/dL Total Protein 4.4 L (6.2-8.2) g/dL Albumin 2.5 L (3.8-4.9) g/dL Albumin/Globulin Ratio 1.32 L (1.60-3.17) g/dL Assessment and Plan Assessment: Acute hypoxic respiratory failure secondary to acute COVID-19 pneumonia, underlying bacterial pneumonia is very likely considering her chest x-ray findings and considering elevated pro calcitonin level. Completed a course of Zosyn. Currently on 8 L high flow nasal cannula. Possible interstitial lung disease/pulmonary fibrosis. Hypotension, secondary to sepsis/septic shock. History of underlying COPD. History of hypothyroidism. History of generalized anxiety disorder . Acute dehydration, resolved. Acute kidney injury. Paroxysmal atrial fibrillation. Plan: Plan dated 01/20/2022. The patient continues on albuterol inhaler, factor X a inhibitor, Spiriva, Symbicort, and Solu-Medrol. Additional recommendations and suggestions are forthcoming. The patient has been weaned down to 8 L of oxygen. We will continue to follow make recommendations along the way. The Solu-Medrol can be converted to prednisone 40 mg a day. No additional recommendations are made. Prognosis is guarded. Time with Patient: Less than 30
--- NOTE | 2022-01-20 16:23 | P.PN ---
Subjective Progress Note Date: 01/14/22 Principal diagnosis: Sacral wound Patient is a 76-year old female with multiple comorbidities including COPD current 2 pack smoker hypothyroidism presented to the hospital with weakness patient also have a fall landed on her gluteal area and has developed a deep tissue injury to the sacral area and tested positive for COVID-19. On today's evaluation that is 01/14/2022 the patient continues to be afebrile, patient is breathing comfortably high flow 8 L nasal cannula oxygen, the patient denies chest pain no worsening cough or sputum production, the patient denies a bdominal pain or any worsening pain to the sacral wound area Objective - Vital Signs Vital signs: Vital Signs Temp 98.2 F 01/14/22 12:00 Pulse 54 L 01/14/22 12:00 Resp 19 01/14/22 12:00 BP 86/45 01/14/22 09:00 Pulse Ox 87 L 01/14/22 12:00 FiO2 60 01/13/22 16:00 Intake & Output 01/13/22 01/14/22 01/14/22 18:59 06:59 18:59 Intake Total 247.737 484.543 235.614 Output Total 1600 800 230 Balance -1352.263 -315.457 5.614 Weight 69.1 kg Intake: IV 143 269 215 0.9 Normal Saline @ 10mL/ 110 130 100 hr KVO 0.9NS Pressure Bag 33 39 15 Piperacillin-Tazobactam 3 100 100 .375 gm In Sodium Chloride 0.9% 100 ml @ 25 mls/hr IVPB Q8HR RADHA Rx# :[id number] Intake, IV Titration 104.737 215.543 20.614 Amount Norepinephrine 8 mg In 104.737 215.543 20.614 Sodium Chloride 0.9% 250 ml @ 0.03 MCG/KG/MIN 3. 947 mls/hr IV .Q24H RADHA Rx#:[id number] Output: Urine 1600 800 230 Other: Voiding Method Indwelling Catheter Indwelling Catheter Indwelling Catheter ABP, PAP, CO, CI - Last Documented Arterial Blood Pressure 94/43 - Exam GENERAL DESCRIPTION: An elderly female lying in bed in no distress RESPIRATORY SYSTEM: Unlabored breathing , decreased breath sounds at bases HEART: S1 S2 regular rate and rhythm , ABDOMEN: Soft , no tenderness EXTREMITIES: No edema feet - Labs CBC & Chem 7: 01/20/22 07:26 01/20/22 07:26 Labs: Abnormal Lab Results - Last 24 Hours (Table) 01/14/22 01/14/22 Range/Units 05:07 05:07 Hgb 10.7 L (11.4-16.0) gm/dL Hct 33.6 L (34.0-46.0) % Neutrophils # 8.7 H (1.3-7.7) k/uL Lymphocytes # 0.5 L (1.0-4.8) k/uL Sodium 135 L (137-145) mmol/L Carbon Dioxide 32 H (22-30) mmol/L BUN 22 H (7-17) mg/dL Glucose 150 H (74-99) mg/dL Calcium 7.4 L (8.4-10.2) mg/dL Microbiology - Last 24 Hours (Table) 01/07/22 13:56 Blood Culture - Final Blood No Growth after 144 hours 01/07/22 13:56 Blood Culture - Final Blood No Growth after 144 hours Assessment and Plan (1) Pressure ulcer of sacral region, stage 2 Current Visit: Yes Status: Acute Code(s): L89.152 - PRESSURE ULCER OF SACRAL REGION, STAGE 2 SNOMED Code(s): 54245734516378 Plan: 1patient with acute respiratory failure which is multifactorial concerning for possible pneumonia in this patient also tested positive for COVID however did have elevated procalcitonin superadded bacterial pneumonia not entirely excluded, patient slowly clinical improvement and will continue with the current supportive treatment of Zosyn Heparin dexamethasone zinc and ascorbic acid. 2-patient with a deep tissue injury to the sacral area and likely stage II sacral pressure ulcer with no cellulitis patient to continue local wound care with dry protective dressing and keep the area off the pressure Time with Patient: Less than 30
--- NOTE | 2022-01-20 16:25 | P.PN ---
Subjective Progress Note Date: 01/18/22 Principal diagnosis: Sacral wound Patient is a 76-year old female with multiple comorbidities including COPD current 2 pack smoker hypothyroidism presented to the hospital with weakness patient also have a fall landed on her gluteal area and has developed a deep tissue injury to the sacral area and tested positive for COVID-19. 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 no abdominal pain no diarrhea Objective - Vital Signs Vital signs: Vital Signs Temp 98.2 F 01/18/22 20:00 Pulse 69 01/18/22 20:00 Resp 17 01/18/22 20:00 BP 97/60 01/18/22 20:00 Pulse Ox 96 01/18/22 20:00 FiO2 60 01/13/22 16:00 Intake & Output 01/18/22 01/18/22 01/19/22 06:59 18:59 06:59 Intake Total 200 300 Output Total 800 Balance 200 -500 Weight 70.6 kg Intake: Oral 200 300 Output: Urine 800 Other: Voiding Method Bedpan External Catheter External Catheter # Voids 1 ABP, PAP, CO, CI - Last Documented Arterial Blood Pressure 110/53 - Exam GENERAL DESCRIPTION: An elderly female lying in bed in no distress RESPIRATORY SYSTEM: Unlabored breathing , decreased breath sounds at bases HEART: S1 S2 regular rate and rhythm , ABDOMEN: Soft , no tenderness EXTREMITIES: No edema feet - Labs CBC & Chem 7: 01/20/22 07:26 01/20/22 07:26 Labs: Abnormal Lab Results - Last 24 Hours (Table) 01/18/22 Range/Units 20:15 POC Glucose (mg/dL) 178 H (70-110) mg/dL Assessment and Plan (1) Pressure ulcer of sacral region, stage 2 Current Visit: Yes Status: Acute Code(s): L89.152 - PRESSURE ULCER OF SACRAL REGION, STAGE 2 SNOMED Code(s): 04972786149149 Plan: 1patient with acute respiratory failure which is multifactorial concerning for possible pneumonia in this patient also tested positive for COVID however did have elevated procalcitonin superadded bacterial pneumonia not entirely excluded , patient has completed her antibiotic therapy patient symptom has been going on for more than 10 days and can be taken off the droplet isolation 2-patient with a deep tissue injury to the sacral area and likely stage II sacral pressure ulcer with no cellulitis patient to continue local wound care with skin protective cream and keep the area off the pressure Time with Patient: Less than 30
--- NOTE | 2022-01-20 16:27 | P.PN ---
Subjective Progress Note Date: 01/19/22 Principal diagnosis: Sacral wound Patient is a 76-year old female with multiple comorbidities including COPD current 2 pack smoker hypothyroidism presented to the hospital with weakness patient also have a fall landed on her gluteal area and has developed a deep tissue injury to the sacral area and tested positive for COVID-19. 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 no abdominal pain no diarrhea Objective - Vital Signs Vital signs: Vital Signs Temp 97.7 F 01/19/22 13:39 Pulse 80 01/19/22 13:39 Resp 20 01/19/22 13:39 BP 100/66 01/19/22 13:39 Pulse Ox 96 01/19/22 13:39 FiO2 60 01/13/22 16:00 Intake & Output 01/18/22 01/19/22 01/19/22 18:59 06:59 18:59 Intake Total 300 Output Total 800 400 350 Balance -500 -400 -350 Weight 70.6 kg Intake: Oral 300 Output: Urine 800 400 350 Other: Voiding Method External Catheter External Catheter External Catheter ABP, PAP, CO, CI - Last Documented Arterial Blood Pressure 110/53 - Exam GENERAL DESCRIPTION: An elderly female lying in bed in no distress RESPIRATORY SYSTEM: Unlabored breathing , decreased breath sounds at bases HEART: S1 S2 regular rate and rhythm , ABDOMEN: Soft , no tenderness EXTREMITIES: No edema feet Sacral pressure ulcer with no surrounding redness no significant slough tissue - Labs CBC & Chem 7: 01/20/22 07:26 01/20/22 07:26 Labs: Abnormal Lab Results - Last 24 Hours (Table) 01/18/22 01/19/22 01/19/22 Range/Units 20:15 06:04 11:29 POC Glucose (mg/dL) 178 H 150 H 210 H (70-110) mg/dL 01/19/22 Range/Units 16:28 POC Glucose (mg/dL) 138 H (70-110) mg/dL Assessment and Plan (1) Pressure ulcer of sacral region, stage 2 Current Visit: Yes Status: Acute Code(s): L89.152 - PRESSURE ULCER OF SACRAL REGION, STAGE 2 SNOMED Code(s): 09567659861734 Plan: 1patient with acute respiratory failure which is multifactorial concerning for possible pneumonia in this patient also tested positive for COVID however did have elevated procalcitonin superadded bacterial pneumonia not entirely excluded, patient has completed her antibiotic therapy patient to continue with the Solu-Medrol Eliquis and bronchodilator 2-patient with stage II sacral area with no cellulitis patient to continue local wound care with skin protective cream and keep the area off the pressure Time with Patient: Less than 30
--- NOTE | 2022-01-20 16:29 | P.PN ---
Subjective Progress Note Date: 01/20/22 Principal diagnosis: Sacral wound Patient is a 76-year old female with multiple comorbidities including COPD current 2 pack smoker hypothyroidism presented to the hospital with weakness patient also have a fall landed on her gluteal area and has developed a deep tissue injury to the sacral area and tested positive for COVID-19. On today's evaluation that is 01/20/2022 the patient remains to be afebrile, patient is breathing comfortably and the patient is currently on 8 L high flow oxygen to maintain her O2 sats, the patient denies chest pain patient denies any worsening cough or sputum production no abdominal pain no pain to the sacral wound area Objective - Vital Signs Vital signs: Vital Signs Temp 98.0 F 01/20/22 13:53 Pulse 78 01/20/22 13:53 Resp 18 01/20/22 13:53 BP 95/56 01/20/22 13:53 Pulse Ox 95 01/20/22 13:53 FiO2 60 01/13/22 16:00 Intake & Output 01/19/22 01/20/22 01/20/22 18:59 06:59 18:59 Intake Total 200 Output Total 650 Balance -650 200 Intake: Oral 200 Output: Urine 650 Other: Voiding Method External Catheter External Catheter External Catheter # Voids 2 ABP, PAP, CO, CI - Last Documented Arterial Blood Pressure 110/53 - Exam GENERAL DESCRIPTION: An elderly female lying in bed in no distress RESPIRATORY SYSTEM: Unlabored breathing , decreased breath sounds at bases HEART: S1 S2 regular rate and rhythm , ABDOMEN: Soft , no tenderness EXTREMITIES: No edema feet Sacral pressure ulcer is currently dressed - Labs CBC & Chem 7: 01/20/22 07:26 01/20/22 07:26 Labs: Abnormal Lab Results - Last 24 Hours (Table) 01/19/22 01/19/22 01/20/22 Range/Units 16:28 21:09 06:16 WBC (4.50-10.00) X 10*3/uL RBC (4.10-5.20) X 10*6/uL Hgb (12.0-15.0) g/dL Hct (37.2-46.3) % RDW (11.5-14.5) % Immature Gran # (0.00-0.04) X 10*3/uL Neutrophils # (1.80-7.70) X 10*3/uL Lymphocytes # (0.90-5.00) X 10*3/uL Eosinophils # (0.04-0.35) X 10*3/uL Carbon Dioxide (20.0-27.5) mmol/L Anion Gap (10.00-18.00) mmol/L Creatinine (0.6-1.5) mg/dL BUN/Creatinine Ratio (12.00-20.00) Ratio Glucose (70-110) mg/dL POC Glucose (mg/dL) 138 H 227 H 155 H (70-110) mg/dL Calcium (8.7-10.3) mg/dL Total Protein (6.2-8.2) g/dL Albumin (3.8-4.9) g/dL Albumin/Globulin Ratio (1.60-3.17) g/dL 01/20/22 01/20/22 01/20/22 Range/Units 07:26 07:26 11:28 WBC 14.66 H (4.50-10.00) X 10*3/uL RBC 3.42 L (4.10-5.20) X 10*6/uL Hgb 9.5 L (12.0-15.0) g/dL Hct 29.6 L (37.2-46.3) % RDW 16.0 H (11.5-14.5) % Immature Gran # 0.09 H (0.00-0.04) X 10*3/uL Neutrophils # 13.39 H (1.80-7.70) X 10*3/uL Lymphocytes # 0.66 L (0.90-5.00) X 10*3/uL Eosinophils # 0 L (0.04-0.35) X 10*3/uL Carbon Dioxide 32.2 H (20.0-27.5) mmol/L Anion Gap 6.80 L (10.00-18.00) mmol/L Creatinine 0.5 L (0.6-1.5) mg/dL BUN/Creatinine Ratio 52.80 H (12.00-20.00) Ratio Glucose 119 H (70-110) mg/dL POC Glucose (mg/dL) 152 H (70-110) mg/dL Calcium 8.4 L (8.7-10.3) mg/dL Total Protein 4.4 L (6.2-8.2) g/dL Albumin 2.5 L (3.8-4.9) g/dL Albumin/Globulin Ratio 1.32 L (1.60-3.17) g/dL Assessment and Plan (1) Pressure ulcer of sacral region, stage 2 Current Visit: Yes Status: Acute Code(s): L89.152 - PRESSURE ULCER OF SACRAL REGION, STAGE 2 SNOMED Code(s): 23182873116788 Plan: 1patient with acute respiratory failure which is multifactorial concerning for possible pneumonia in this patient also tested positive for COVID however did have elevated procalcitonin with concern for superadded bacterial pneumonia for which patient has completed her antibiotic therapy patient respiratory status remains to be borderline and will continue with the Solu-Medrol Eliquis and bronchodilator 2-patient with stage II sacral area with no cellulitis patient to continue local wound care with skin protective cream and keep the area off the pressure, and no need for systemic antibiotic therapy Time with Patient: Less than 30
[2022-01-20 16:52] LABS: Glucose,Whole Blood 164 mg/dL (70-110)
[2022-01-20] MEDS: risperiDONE 2 MG TAB PO SCH (20:30)
[2022-01-20 20:51] LABS: Glucose,Whole Blood 195 mg/dL (70-110)
[2022-01-20] MEDS: SODIUM CHLORIDE 0.9% 1,000 ML IV SCH (23:56)
[2022-01-21] MEDS: LEVOTHYROXINE 88 MCG TAB PO SCH (05:54)
[2022-01-21 06:26] LABS: Glucose,Whole Blood 133 mg/dL (70-110)
[2022-01-21] MEDS: TIOTROPIUM 2.5 MCG INHALER INHALATION SCH (08:32)
[2022-01-21] MEDS: ALBUTEROL HFA INHALER INHALATION SCH ×4 (08:32→21:35)
[2022-01-21] MEDS: SYMBICORT 160-4.5 MCG INHALER INHALATION SCH ×2 (08:32→21:35)
[2022-01-21] MEDS: ASCORBIC ACID 500 MG TAB PO SCH ×2 (09:50→20:10)
[2022-01-21] MEDS: PANTOPRAZOLE 40 MG/10 ML VIAL IV SCH (09:50)
[2022-01-21] MEDS: methylPREDNISolone SOD SUCCI 40 MG/ML 1 ML VIAL IV SCH ×2 (09:50→16:17)
[2022-01-21] MEDS: APIXABAN 5 MG TAB PO SCH ×2 (09:50→20:10)
[2022-01-21] MEDS: ZINC SULFATE 220 MG CAP PO SCH (09:50)
[2022-01-21] MEDS: CHOLECALCIFEROL 25 MCG (1000 IU) TABLET PO SCH (09:50)
[2022-01-21] MEDS: CITALOPRAM HYDROBROMIDE 10 MG TAB PO SCH (10:08)
--- NOTE | 2022-01-21 11:03 | P.PN ---
Subjective Progress Note Date: 01/21/22 Samantha Brown, is a 76-year-old female who presented to [facility] emergency room with a chief complaint of generalized weakness, patient's daughter reported in the emergency room that her mother had a fall 4 days prior to presentation She was evaluated in the emergency room vital examination on presentation revealed Laboratory data revealed a white blood count of 14.4 hemoglobin 12.2 platelet count 476 INR 1.2 d-dimer 3.94 sodium 129 potassium 5.1 chloride 99 CO2 23 BUN 76 creatinine 1.92 lactic acid 1.7 Corps on a virus PCR was positive Testing in the emergency room revealed chest x-ray done in emergency room revealed small bilateral pleural effusions and multifocal areas of increased reticular markings, EKG revealed atrial fibrillation with a heart rate of 86 Patient was admitted to medical floor for further evaluation and treatment. Past medical history is significant for history of hypertension, history of hyperlipidemia, history of hypothyroidism, and history of tobacco use patient smokes 2 packs per day On 01/08/2022 patient was seen and examined in the ICU she is alert responsive in mild distress due to shortness of breath, she was started on BiPAP during the night, she is maintained on norepinephrine for pressure support, she is also maintained on IV antibiotic Zosyn, input from cardiology and pulmonary review, patient's daughter Pily contacted over the phone and all questions answered to her satisfaction. On 01/09/2022 patient remains in the intensive care unit slightly improved. Patient remains on BiPAP. Creatinine improving to 1.41 bun 63. Patient remains on IV heparin. Patient also remains on sodium bicarb current vital signs heart rate 88, respiratory rate 19, blood pressure 108/51 patient satting 93% on BiPAP 40% FiO2. On 01/10/2022 patient was seen and examined in the ICU she is alert responsive in no apparent distress she is maintained on BiPAP, she is stating that her shortness of breath is improving she denies any chest pain there is no nausea or vomiting no abdominal pain no diarrhea and no urinary symptoms, however white blood count is 11 hemoglobin 10.8, BUN 60 creatinine 1.12 On 01/11/2022 patient was seen and examined in the ICU she is alert responsive in no apparent distress BiPAP was discontinued and patient was started on Airvo high flow oxygen she is still maintained on levophed for pressure support and this is being weaned down gradually. White blood count is down today to 7.5 BUN down to 45 creatinine 0.83 patient denies any chest pain or shortness of breath is improving, she is receiving IV antibiotic Zosyn she is also receiving Remdesevir for Covid-19 On 01/12/22, patient was seen and examined in the ICU, she is alert and oriented x 3, patient remains on airvo 55% FiO2, chest x-ray is showing some worsening today with interstitial infiltrates, possible interstitial edema. She remains on Decadron, she is also on eliquis, and she is on Zosyn. patient is still requiring norepinephrine On 01/13/2022 patient remains in the intensive care unit. Patient did require higher levels of irritable last night per nursing staff but is back down to 55%. Steroids were increased per pulmonary and critical care. Current vital signs temp 98.6, heart rate 75, respiratory rate 23, blood pressure 107/71 patient currently on 60% airflow satting 98% On 01/14/2022 patient was seen and examined in the ICU she is alert and oriented 3 in no apparent distress she is still maintained on high flow oxygen there is no fever or chills no headache or dizziness no chest pain she has occasional cough no nausea or vomiting no abdominal pain no diarrhea no blood in the stools, no urinary symptoms Wren catheter is in. On 01/15/2022 patient was seen and examined in the ICU she is alert and responsive in no apparent distress she is maintained on high flow oxygen at 15 L/m via nasal cannula there is no fever or chills no headache or dizziness no chest pain she has shortness of breath with any activity and occasional cough no nausea or vomiting no abdominal pain no diarrhea and no urinary symptoms is ma intained on IV Zosyn inhaled bronchodilators, inhaled steroids, and Eliquis, she is off pressure support at this time On 01/16/2022 patient remains in the intensive care unit. Patient remains on high flow 15 L. Patient remains off pressure support medication at this time. Current vital signs temp 97.7 heart rate 57, respiratory rate 17, blood pressure 100/62 sitting 90% on 15 L. On 01/17/2022 patient was seen and examined in the ICU, she is alert and oriented 3 in no apparent distress, she is still maintained on high flow oxygen at 15 L/m, she denies any chest pain, there is no fever or chills no headache or dizziness she has occasional cough no nausea or vomiting no abdominal pain no diarrhea and no urinary symptoms. Patient has poor oral intake, I was contacted today by the dietitian who recommended tube feeding due to patient consuming less then 25% of her meals, tube feeding was discussed in details with patient and at this time she is refusing, she stated that she will work on eating more of her meals. Nutrition supplements will be admitted On 01/18/2022 patient was seen and examined in the ICU, she is alert and oriented 3. Patient is weaning down in oxygen demand patient currently on high flow nasal cannula 10 L. Current vital signs temp 97.4, heart rate 78, res piratory rate 14, blood pressure 98/51. On 01/19/2022 patient was seen and examined on the telemetry floor she is alert and oriented in no apparent distress, she is sitting up in a chair, she is main tained on oxygen at 10 L via high flow nasal cannula, she is denying any complaints at this time there is no fever or chills no headache or dizziness no chest pain no shortness of breath at rest no cough no nausea or vomiting no abdominal pain no diarrhea no blood in the stools no burning with urination no frequency or urgency and no hematuria. She is still having severe weakness and is only able to pivot from her bed to her chair, physical therapy and occupational therapy are consulted, patient was encouraged to increase her oral intake. On 01/20/2022 patient was seen and examined on the medical floor she is alert and oriented 3 in no apparent distress she is still maintained on oxygen at 8 L via nasal cannula, she is feeling better, there is no fever or chills no headache or dizziness no chest pain no shortness of breath at rest she has occasional cough no nausea or vomiting no abdominal pain no diarrhea no blood in the stools no burning with urination no frequency or urgency and no hematuria, physical therapy and occupational therapy are consulted, patient was encouraged to increase her oral intake. On 01/21/2022 patient was seen and examined on the medical floor she is alert and oriented 3 in no distress she is still complaining of shortness of breath with any activity she is maintained on oxygen at 8 L via nasal cannula otherwise she denies any complaints there is no fever or chills no headache or dizziness no chest pain, she has occasional cough no nausea or vomiting no abdominal pain no diarrhea and no urinary symptoms. Patient was seen by physical therapy and occupational therapy she remains very weak a consultation for Dr. Art was initiated for possible rehab admission. Objective - Vital Signs Vital signs: Vital Signs Temp 97.8 F 01/21/22 01:28 Pulse 71 01/21/22 01:28 Resp 19 01/21/22 01:28 BP 93/55 01/21/22 01:28 Pulse Ox 99 01/21/22 01:28 FiO2 60 01/13/22 16:00 Intake & Output 01/20/22 01/21/22 01/21/22 18:59 06:59 18:59 Intake Total 150 Balance 150 Intake: Oral 150 Other: Voiding Method External Catheter External Catheter # Voids 3 3 ABP, PAP, CO, CI - Last Documented Arterial Blood Pressure 110/53 - Exam In general patient is alert responsive maintained on on oxygen via high flow nasal cannula HEENT head normocephalic and atraumatic Neck is supple no JVD no goiter no lymphadenopathy no carotid bruit Chest examination reveals a scattered crackles bilaterally with mild wheezing Cardiac exam reveals regular heart sounds S1 and S2 no gallops no murmurs Abdomen is soft nontender no organomegaly with normal bowel sounds Extremity exam reveals no edema no cyanosis or clubbing, poor pulses peripherally Neurological examination reveals no gross focal deficits - Labs CBC & Chem 7: 01/20/22 07:26 01/20/22 07:26 Labs: Abnormal Lab Results - Last 24 Hours (Table) 01/20/22 01/20/22 01/20/22 Range/Units 07:26 07:26 11:28 WBC 14.66 H (4.50-10.00) X 10*3/uL RBC 3.42 L (4.10-5.20) X 10*6/uL Hgb 9.5 L (12.0-15.0) g/dL Hct 29.6 L (37.2-46.3) % RDW 16.0 H (11.5-14.5) % Immature Gran # 0.09 H (0.00-0.04) X 10*3/uL Neutrophils # 13.39 H (1.80-7.70) X 10*3/uL Lymphocytes # 0.66 L (0.90-5.00) X 10*3/uL Eosinophils # 0 L (0.04-0.35) X 10*3/uL Carbon Dioxide 32.2 H (20.0-27.5) mmol/L Anion Gap 6.80 L (10.00-18.00) mmol/L Creatinine 0.5 L (0.6-1.5) mg/dL BUN/Creatinine Ratio 52.80 H (12.00-20.00) Ratio Glucose 119 H (70-110) mg/dL POC Glucose (mg/dL) 152 H (70-110) mg/dL Calcium 8.4 L (8.7-10.3) mg/dL Total Protein 4.4 L (6.2-8.2) g/dL Albumin 2.5 L (3.8-4.9) g/dL Albumin/Globulin Ratio 1.32 L (1.60-3.17) g/dL 01/20/22 01/20/22 01/21/22 Range/Units 16:51 20:49 06:25 WBC (4.50-10.00) X 10*3/uL RBC (4.10-5.20) X 10*6/uL Hgb (12.0-15.0) g/dL Hct (37.2-46.3) % RDW (11.5-14.5) % Immature Gran # (0.00-0.04) X 10*3/uL Neutrophils # (1.80-7.70) X 10*3/uL Lymphocytes # (0.90-5.00) X 10*3/uL Eosinophils # (0.04-0.35) X 10*3/uL Carbon Dioxide (20.0-27.5) mmol/L Anion Gap (10.00-18.00) mmol/L Creatinine (0.6-1.5) mg/dL BUN/Creatinine Ratio (12.00-20.00) Ratio Glucose (70-110) mg/dL POC Glucose (mg/dL) 164 H 195 H 133 H (70-110) mg/dL Calcium (8.7-10.3) mg/dL Total Protein (6.2-8.2) g/dL Albumin (3.8-4.9) g/dL Albumin/Globulin Ratio (1.60-3.17) g/dL Assessment and Plan Plan: Acute hypoxic respiratory failure, improving patient transferred out of ICU. Acute coronary 19 pneumonia Underlying history of chronic obstructive pulmonary disease Sepsis as evidenced by leukocytosis, tachycardia, mild elevation in lactic acid and hypotension Elevated d-dimer Acute kidney injury possibly related to dehydration and prerenal azotemia, will monitor kidney function Underlying history of hypertension Underlying history of hypothyroidism Chronic tobacco use patient smokes up to 2 packs per day Persistent atrial fibrillation with controlled heart rate patient has been switched to oral anticoagulation with eliquis At this time patient is admitted to intensive care unit Pulmonary, vascular surgery, and cardiology consultation requested Patient started on IV antibiotics, IV a Remdesevir, IV steroids and inhaled bronchodilators Medication and labs reviewed will follow closely Prognosis is guarded due to severity of illness
--- NOTE | 2022-01-21 11:14 | P.CONS ---
History of Present Illness - Chief Complaint Hypoxic respiratory failure - History of Present Illness I had the opportunity to see patient for inpatient rehab consultation today. Patient admitted to Dr. Wayne January 07 a few days' duration, COPD exacerbation, hypoxia, atrial fibrillation and Covid positive. Seen by Dr. Castaneda for pulmonary management. Seen by Dr. thomas king who doubts need for surgery. Multiple chest x-rays followed and note recently with trace effusions. Gallbladder ultrasound with cholelithiasis. Chest CT with scattered consolidation and pulmonary fibrosis. Venous Doppler negative for DVT right or left leg.Therapy notes from February 07: PT reports two-person total assistance with bed mobility and transfer and fatigues quickly. OT reports independent with feeding, moderate assistance for grooming and upper dressing, total assistance for lower dressing and toileting and maximal assistance for bathing. Previous functional history as elicited from patient: Stated that she was six- day but his exercise 76-year-old, reports right-handed female lives and 2 floor home with daughter. Daughter does cooking, laundry, driving. Patient describes independent with standing shower gait without device previously. PCP Dr. Van. Denies tobacco or alcohol. Review of Systems Review of systems: ENT: Denies sneezes or discharge. Eyes: Denies discharge or photophobia. Cardiac: Denies chest pain or palpitation. Pulmonary: At least mild shortness of breath without activity. Breast: Denies discharge or lumps. Gastrointestinal: Denies nausea, emesis, constipation, diarrhea. Genitourinary: Denies discharge or frequency. Musculoskeletal: Denies muscle or bone aches. Neurologic: Generalized weakness. Endocrine: Denies shakes or sweats. Oncology: Denies cancers. Dermatologic: Denies rash, itching, pruritus. ALLERGY/immunology: Denies sneezes, rashes. Past Medical History Past Medical History: COPD Additional Past Medical History / Comment(s): Lupus History of Any Multi-Drug Resistant Organisms: None Reported Past Surgical History: Unable to Obtain Additional Past Surgical History / Comment(s): Polyp removed from throat Past Anesthesia/Blood Transfusion Reactions: No Reported Reaction Smoking Status: Current every day smoker Medications and Allergies Home Medications Medication Instructions Recorded Confirmed Type ALPRAZolam [Xanax] 0.25 mg PO BID PRN 01/07/22 01/07/22 History Citalopram Hydrobromide [CeleXA] 30 mg PO DAILY 01/07/22 01/08/22 History Ipratropium/Albuter 20-100Mcg 1 puff INHALATION RT-QID 01/07/22 01/07/22 History [Combivent Respimat 20-100Mcg Inhaler] Levothyroxine Sodium 150 mcg PO Q48H 01/07/22 01/08/22 History Levothyroxine Sodium [Synthroid] 175 mcg PO Q48H 01/07/22 01/08/22 History risperiDONE [RisperDAL] 2 mg PO HS 01/07/22 01/08/22 History Apixaban [Eliquis] 5 mg PO BID #60 tab 01/08/22 Rx Allergies Allergy/AdvReac Type Severity Reaction Status Date / Time procaine [From Novocain] Allergy Dyspnea & Verified 01/07/22 11:59 Hallucinations Physical Exam Vitals: Vital Signs Temp Pulse Pulse Pulse Resp BP Pulse Ox 01/21/22 09:49 97.4 F L 72 16 104/65 92 L 01/21/22 01:28 97.8 F 71 19 93/55 99 01/20/22 20:00 85 01/20/22 19:29 98.5 F 81 21 93/56 94 L 01/20/22 13:53 98.0 F 78 18 95/56 95 Intake and Output 01/20/22 01/21/22 01/21/22 22:59 06:59 14:59 Intake Total 150 Balance 150 Intake: Oral 150 Other: Voiding Method External Catheter # Voids 3 3 Skin: Atrophic, intact. General: Thin build and comfortable appearance. Head: Normocephalic, atraumatic. Eyes: Symmetric. Pupils equal round. Ears: Symmetric. Diminished hearing bilateral. Mouth: Clear. Neck: Supple. Carotid without bruit. Cardiac: Regular rate and rhythm. Lungs: Clear anteriorly and posteriorly. Abdomen: Soft active nontender. Extremities: Normal tone.Thin limbs. Neurological: Mental status: Alert, cooperative, pleasant. Cranial nerves: Symmetric facial tone and trapezius. Motor: Can actively elevate arms off of bed. Legs poor but with active movement at ankles. Sensation: Intact throughout. DTRs: Symmetric and equal throughout. Mobility: Requires physical assistance for bed mobility. Results CBC & Chem 7: 01/20/22 07:26 01/20/22 07:26 Labs: Abnormal Lab Results - Last 24 Hours (Table) 01/20/22 01/20/22 01/20/22 Range/Units 07:26 11:28 16:51 Carbon Dioxide 32.2 H (20.0-27.5) mmol/L Anion Gap 6.80 L (10.00-18.00) mmol/L Creatinine 0.5 L (0.6-1.5) mg/dL BUN/Creatinine Ratio 52.80 H (12.00-20.00) Ratio Glucose 119 H (70-110) mg/dL POC Glucose (mg/dL) 152 H 164 H (70-110) mg/dL Calcium 8.4 L (8.7-10.3) mg/dL Total Protein 4.4 L (6.2-8.2) g/dL Albumin 2.5 L (3.8-4.9) g/dL Albumin/Globulin Ratio 1.32 L (1.60-3.17) g/dL 01/20/22 01/21/22 Range/Units 20:49 06:25 Carbon Dioxide (20.0-27.5) mmol/L Anion Gap (10.00-18.00) mmol/L Creatinine (0.6-1.5) mg/dL BUN/Creatinine Ratio (12.00-20.00) Ratio Glucose (70-110) mg/dL POC Glucose (mg/dL) 195 H 133 H (70-110) mg/dL Calcium (8.7-10.3) mg/dL Total Protein (6.2-8.2) g/dL Albumin (3.8-4.9) g/dL Albumin/Globulin Ratio (1.60-3.17) g/dL Assessment and Plan (1) NIKOS (acute kidney injury) Current Visit: Yes Status: Acute Code(s): N17.9 - ACUTE KIDNEY FAILURE, UNSPECIFIED SNOMED Code(s): 57871662 (2) Atrial fibrillation, new onset Current Visit: Yes Status: Acute Code(s): I48.91 - UNSPECIFIED ATRIAL FIBRILLATION SNOMED Code(s): 30794911 (3) COPD exacerbation Current Visit: Yes Status: Acute Code(s): J44.1 - CHRONIC OBSTRUCTIVE PULMONARY DISEASE W (ACUTE) EXACERBATION SNOMED Code(s): 805720259 (4) COVID-19 Current Visit: Yes Status: Acute Code(s): U07.1 - COVID-19 SNOMED Code(s): 222211668 (5) Fall Current Visit: Yes Status: Acute Code(s): W19.XXXA - UNSPECIFIED FALL, INITIAL ENCOUNTER SNOMED Code(s): 2263777 (6) Hypotension Current Visit: Yes Status: Acute Code(s): I95.9 - HYPOTENSION, UNSPECIFIED SNOMED Code(s): 55283861 (7) Hypoxia Current Visit: Yes Status: Acute Code(s): R09.02 - HYPOXEMIA SNOMED Code(s): 249501386 (8) Pressure ulcer of sacral region, stage 2 Current Visit: Yes Status: Acute Code(s): L89.152 - PRESSURE ULCER OF SACRAL REGION, STAGE 2 SNOMED Code(s): 25681313850874 Plan: Comments and plan: At this time patient endurance to poor for full inpatient rehab. To begin to consider alternative discharge plan such as as they are with 24/7 care multiple persons.
[2022-01-21 11:36] LABS: Glucose,Whole Blood 100 mg/dL (70-110)
[2022-01-21 16:49] LABS: Glucose,Whole Blood 138 mg/dL (70-110)
--- NOTE | 2022-01-21 18:30 | P.PN ---
Subjective Progress Note Date: 01/21/22 76-year-old female patient with known history of pulmonary fibrosis resume to prednisone dose of 20 mg on an outpatient basis. The patient presented with acute hypoxic respiratory failure in addition to increased lower extremity edema. The patient's oxygen requirements were advised 10 L in the emergency department. She uses oxygen 20 470 no patient basis. She is also known to have coronary artery disease with previous coronary stent insertion. The patient was Covid 19 negative. The patient was also negative. Influenza a and B and negative for RSV. Chest x-ray showed cardiomegaly and diffuse interstitial changes bilaterally. The patient's pro-calcitonin level was at 0.04 and the patient had a CAT scan that showed questionable left lower lobe pulmonary artery filling defect. No evidence of any pulmonary hypertension. In addition, there was interstitial septal thickening consistent with known history of pulmonary fibrosis. The patient was started on IV heparin and the patient currently is on anti-coagulation with Eliquis 10 mg by mouth twice a day. The patient remains on prednisone. The patient is also being diuresed with Lasix 40 mg IV every 12 hours. The hemoglobin is at 13.2. echoes at 10.4. Platelet count is at 125. BUN is at 40 with a creatinine of 0.7 and a sodium level is at 139. Objective - Vital Signs Vital signs: Vital Signs Temp 97.4 F L 01/21/22 09:49 Pulse 72 01/21/22 09:49 Resp 16 01/21/22 09:49 BP 104/65 01/21/22 09:49 Pulse Ox 92 L 01/21/22 09:49 FiO2 60 01/13/22 16:00 Intake & Output 01/20/22 01/21/22 01/21/22 18:59 06:59 18:59 Intake Total 150 Balance 150 Intake: Oral 150 Other: Voiding Method External Catheter External Catheter External Catheter # Voids 3 3 ABP, PAP, CO, CI - Last Documented Arterial Blood Pressure 110/53 - Exam No acute distress, oriented 3. Currently on 8 L high flow oxygen. HEENT examination is grossly unremarkable. Neck supple. Full range of motion. No adenopathy thyromegaly or neck vein distention. Cardiovascular examination reveals regular rhythm rate. S1-S2 normal. No S3 or S4. No discernible murmur noted. Lungs reveal coarse bilateral breath sounds. Breath sounds equal. Mild bibasilar crackles. No wheezes. Abdomen soft bowel sounds are heard. No masses or tenderness. Extremities are intact. No cyanosis clubbing or edema. Skin is without rash or lesion. Neurologic examination is brief but nonfocal. - Labs CBC & Chem 7: 01/20/22 07:26 01/20/22 07:26 Labs: Abnormal Lab Results - Last 24 Hours (Table) 01/20/22 01/20/22 01/21/22 Range/Units 16:51 20:49 06:25 POC Glucose (mg/dL) 164 H 195 H 133 H (70-110) mg/dL Assessment and Plan Plan: Acute hypoxic respiratory failure secondary to a pulmonary fibrosis addition to a component of fluid overload. Patient could've also had a pulmonary embolism based on CT of the chest as well as done on 01/18/2022. Pulmonary fibrosis and chronic hypoxic respiratory failure maintained on steroids and oxygen therapy. Severe pulmonary hypertension with RV systolic pressure of 74, questionable RV thrombus Hypotension, secondary to sepsis/septic shock. COPD. History of hypothyroidism. History of generalized anxiety disorder . Acute dehydration, resolved. Acute kidney injury, recovered Paroxysmal atrial fibrillation DNR/DNI Plan Wean down FiO2 as tolerated currently she is down to 8 L Continue diuretics with IV Lasix Continue anticoagulation with Eliquis Continue Aldactone Receiving IV fluids Monitor electrolytes and will continue to follow
[2022-01-21] MEDS: risperiDONE 2 MG TAB PO SCH (20:10)
[2022-01-21 20:50] LABS: Glucose,Whole Blood 161 mg/dL (70-110)
[2022-01-22] MEDS: methylPREDNISolone SOD SUCCI 40 MG/ML 1 ML VIAL IV SCH ×2 (00:39→07:59)
[2022-01-22] MEDS: SODIUM CHLORIDE 0.9% 1,000 ML IV SCH (04:08)
[2022-01-22] MEDS: LEVOTHYROXINE 75 MCG TAB PO SCH (06:13)
[2022-01-22 06:20] LABS: Glucose,Whole Blood 152 mg/dL (70-110)
[2022-01-22] MEDS: TIOTROPIUM 2.5 MCG INHALER INHALATION SCH (07:23)
[2022-01-22] MEDS: SYMBICORT 160-4.5 MCG INHALER INHALATION SCH ×2 (07:23→21:29)
[2022-01-22] MEDS: ALBUTEROL HFA INHALER INHALATION SCH ×4 (07:23→21:29)
[2022-01-22] MEDS: APIXABAN 5 MG TAB PO SCH ×2 (07:59→21:44)
[2022-01-22] MEDS: PANTOPRAZOLE 40 MG/10 ML VIAL IV SCH (07:59)
[2022-01-22] MEDS: CITALOPRAM HYDROBROMIDE 10 MG TAB PO SCH (07:59)
[2022-01-22] MEDS: CHOLECALCIFEROL 25 MCG (1000 IU) TABLET PO SCH (07:59)
[2022-01-22] MEDS: ZINC SULFATE 220 MG CAP PO SCH (07:59)
[2022-01-22] MEDS: ASCORBIC ACID 500 MG TAB PO SCH ×2 (07:59→21:44)
[2022-01-22 09:01] LABS: Basophils # (A) 0.02 X 10*3/uL (0.00-0.10); Basophils % (A) 0.1 %; Eosinophils # (A) 0 X 10*3/uL (0.04-0.35); Eosinophils % (A) 0 %; HCT 29.8 % (37.2-46.3); HGB 9.4 g/dL (12.0-15.0); Immature Grans, Automated 0.9 %; Lymphocytes # (A) 0.48 X 10*3/uL (0.90-5.00); Lymphocytes % (A) 2.5 %; MCH 27.7 pg (27.0-32.0); MCHC 31.5 g/dL (32.0-37.0); MCV 87.9 fL (80.0-97.0); Mean Platelet Volume 9.8 fL (9.5-12.2); Monocytes # (A) 0.35 X 10*3/uL (0.20-1.00); Monocytes % (A) 1.8 %; NRBC Per 100 WBC 0 /100 WBCS (0.0-0.0); Neutrophils # (A) 18.09 X 10*3/uL (1.80-7.70); Neutrophils % (A) 94.7 %; Platelet Count 317 X 10*3/uL (140-440); RBC 3.39 X 10*6/uL (4.10-5.20); RDW 16.4 % (11.5-14.5); WBC 19.12 X 10*3/uL (4.50-10.00)
[2022-01-22 09:26] LABS: Albumin 2.4 g/dL (3.8-4.9); Albumin/Globulin Ratio 1.2 (1.60-3.17); BUN/Creat Ratio 47.4 Ratio (12.00-20.00); Blood Urea Nitrogen 23.7 mg/dL (9.0-27.0); Calcium 8.1 mg/dL (8.7-10.3); Potassium 4.3 mmol/L (3.5-5.5); Total Bilirubin 0.5 mg/dL (0.30-1.20); Total Protein 4.4 g/dL (6.2-8.2)
[2022-01-22 11:25] LABS: Glucose,Whole Blood 200 mg/dL (70-110)
--- NOTE | 2022-01-22 14:47 | P.PN ---
Subjective Progress Note Date: 01/22/22 This is a 76-year-old female who is not a great historian, her daughter is at bedside, patient is known to have history of hypothyroidism, COPD, history generalized anxiety disorder, patient has been weak for the last few days. According to the daughter, patient fell 4 days ago, and has been complaining of pain to her buttocks. Patient also had some intermittent cough, shortness of breath, and according to the daughter the patient has not been taking her medications including her thyroid medicine and her Combivent for COPD. Patient is a heavy smoker, she smoked 2 packs a day for many years. Does not use oxygen at home. Workup in the ER included a CBC which showed leukocytosis. Elevated d-dimer of 3.94. Abnormal renal profile with a BUN of 76 creatinine of 1.92 and low sodium of 129, elevated BNP level of 2580, normal troponin, and normal liver enzymes. Patient was also noted to have positive PCR for COVID-19, chest x-ray showed multifocal reticular markings and multifocal atypical infiltrates. Possible underlying pulmonary fibrosis. No old x-ray for comparison. Patient was also noted to be relatively hypotensive requiring fluid boluses with slight improvement of the blood pressure. I saw this patient in the ER, and I recommended admitting the patient to the ICU. In the meantime I ordered a high- resolution CT of the chest, started the patient on Remdesivir, patient is on 6 L nasal cannula, recommended fluid boluses, empiric antibiotics, pro-calcitonin level is pending, and order the COVID-19 cocktail. Reevaluated today on 01/08/22, patient remains in the ICU, her condition became a bit worse overnight, patient had to be placed on BiPAP, and she is now on BiPAP FiO2 of 50% IPAP 16 and EPAP of 6 I was able to cut down her FiO2 to 45% and her IPAP 10-14 EPAP remains at 6. Patient is requiring norepinephrine for low blood pressure, hence this is clearly a presentation of septic shock. Patient is requiring norepinephrine at 0.38 mcg/kg/m, her IV fluid went down to KVO after she received 4 L of fluids last night, felt that the patient was over hydrated, and her urine output picked up last night and I was notified about her worsening pulmonary status recommended Lasix dose earlier today with good response to the Lasix. Her creatinine is improving when down from 1.92-1.70 today. Bicarb remains low at 14 on him recommending a bicarb drip. Today I was able to establish a triple-lumen catheter and arterial line and the patient, her pro calcitonin was noted to be high at 5.47, patient was initially placed on vancomycin and Zosyn, blood cultures are negative so far, I'm recommending that we continue Zosyn, discontinue vancomycin, and recommending infectious disease consultation. I'm also recommending a CT of the lumbosacral spine since the patient has significant area of ecchymosis in the buttock area and low back. Apparently she fell 4 days ago. And she had significant amount of pain. The ER physician ordered a thoracic spine CT but did not address the lumbar spine area which seems to be the area of pain and the area of trauma. Patient remains on the COVID-19 cocktail. And I started the patient yesterday on Remdesivir. Since her symptoms were recent within the therapeutic window. WBC count is 20.2 hemoglobin is 12.5. Electrodes are normal except elevated potassium and that will improve with bicarbonate drip. Renal profile as noted earlier. Pro- calcitonin level is very high at 5.47 Reevaluated today on , patient remains in the ICU, remains on BiPAP, FiO2 40%, IPAP of 14 EPAP of 6. Remains on small dose of norepinephrine at 0.1 mcg/kg/m, patient remains on bicarb drip, I cut it down to 25 mL per hour today. Yesterday she had ultrasound of the gallbladder showing mostly cholelithiasis but no cholecystitis. Patient had negative CT of the lumbar spine. Remains on Zosyn empirically since her pro calcitonin level was quite high. She has better urine output, 35-50 mL per hour. Planning today to change from BiPAP possibly to airvo. Planning to gently diurese the patient, her chest x-ray is not showing much of a change in her bilateral interstitial infiltrates, and again I strongly suspect ongoing interstitial lung disease. WBC count 14.8 hemoglobin is 10.6, PTT is 73.7, patient remains on heparin. Basic metabolic profile is normal, BUN is 63 and creatinine 1.41. Reevaluated today on 01/10/22, patient remains in the ICU, remains on BiPAP, she is on 40% FiO2 IPAP of 12 EPAP of 5 Reed seems to be comfortable, and not in distress. Feeling better. Remains on heparin and she remains on norepinephrine at 0.1 mcg/kg/m. Today I am changes heparin to eliquis which she took on outpatient basis. Chest x-ray continues to show interstitial lung disease and interstitial infiltrates. Clinically the patient is feeling better. Her renal functioning is almost back to normal. Continues to have good urine output with diuresis. BUN is down to 60 creatinine is down to 1.12 patient remains on Remdesivir she remains on the COVID-19 cocktail. Reevaluated today on 01/11/22 patient remains in the ICU, she is now on airvo S 50% FiO2 and 60 L flow, saturating in the mid 90s, patient is still requiring n orepinephrine at 0.12 mcg/kg/m. Remains on her day #5 of Remdesivir, she is also on Decadron, eliquis, and multivitamins, patient is also on Zosyn for empiric treatment of superimposed bacterial infection/pneumonia considering that her pro calcitonin level was quite high on admission. Overall clinically the patient is improving but very slowly. WBC count is 7.5 hemoglobin is 10.7. Electrodes are normal renal profile is basically back to normal her creatinine is now 0.83. Reevaluated today on 02/08/22, patient remains in the ICU, remains relatively critically ill, patient is still requiring norepinephrine at 0.08 mcg/kg/m, patient remains on airvo at 55 L and 55% FiO2, chest x-ray is showing some worsening today with interstitial infiltrates, possible interstitial edema, hence I recommended a dose of Lasix 40 mg IV push, and the patient had significant urine output after the Lasix given. She remains on Decadron, she is also on eliquis, and she is on Zosyn. Her echocardiogram showed good LV function, however I am planning to keep the patient on the dry side considering her underlying COVID-19 pneumonia and her underlying interstitial lung disease. WBC count is 9 hemoglobin is 10.8 electrolytes are normal renal profile is normal, blood cultures remain negative. Pro-calcitonin level on admission was elevated. Reevaluated today on 01/13/22, patient remains in the ICU, remains critically ill, she remains on high flow oxygen via airflow, she is on 60% FiO2 and 60 L flow. Patient doesn't respond to diuretics quite well, however her chest x-ray is not showing much improvement, I strongly believe that we are dealing with COVID-19 pneumonia along with interstitial lung disease/pulmonary fibrosis. Not much of a change in the last 24 hours, patient is still on antibiotics empirically because of her pro calcitonin level was elevated, she is still on diuretics as needed, she still requiring norepinephrine at 0.05 mcg/kg/m. Patient remains marginal at best, and I have no plans to transfer the patient out of the ICU at this point yet. She may eventually require a PICC line placement she does have a central access test present but needs to be changed to a PICC line. The patient is seen today 01/14/2022 in follow-up in the intensive care unit. She was admitted back on 01/07/2022 for COPD exacerbation and COVID-19 19 pneumonia. She remains on 15 L high flow nasal cannula to maintain O2 saturations in the 90s. Normal saline at 20 ML's per hour. She is currently off norepinephrine. She has completed a course of Remdesivir. She remains on Symbicort, Spiriva, IV Solu-Medrol, Albuterol HFA, vitamin supplements. She remains on antibiotics in the form of Zosyn. She is anticoagulated with Eliquis. She has been slow to progress. Blood cultures revealed no growth. White count 9.6. Hemoglobin 10.7. Lymphocytes 0.5. Sodium 135. Potassium 4.2. BUN 22. Creatinine 0.58. Glucose 150. Follow-up pro calcitonin pending. The patient is seen today 01/15/2022 in follow-up in the intensive care unit. She is currently resting fairly comfortably in bed. Awake and alert. She is on 15 L high flow nasal cannula. She has normal sitting at 20 mL per hour. She was continued on Symbicort, albuterol, IV Solu-Medrol. Maintained on Zosyn. Continued on vitamin supplements. Eliquis for anticoagulation. Cultures revealed no growth. White count 9.5. Hemoglobin 10.8. Lymphocytes 0.5. Sodium 134. Potassium 4.0. BUN 27. Creatinine 0.57. Glucose 145. Procalcitonin 0.23. The patient is seen today 01/16/2022 in follow-up in the intensive care unit. She is a regular medical floor overflow. She is awake and alert in no acute distress. She is resting comfortably in bed. She is still requiring 15 L high flow nasal cannula to maintain O2 saturation in the 90s. She has normal saline at 20 ML's per hour.chest x-ray continues to show similar multifocal airspace opacities. Trace bilateral effusions. cultures revealed no growth. She completed a course of Zosyn. She was continued on vitamin supplements, IV Solu- Medrol, Symbicort, Spiriva, albuterol. Anticoagulated with Eliquis. The patient is seen today 01/17/2022 in follow-up in the intensive care unit. She is resting comfortably in bed. Awake and alert in no acute distress. She is still requiring 12 L high flow nasal cannula to maintain O2 saturations in the 90s. She has normal saline at 20 mL an hour. White count 11.5. Hemoglobin 10.7. Platelets 434. Sodium 136. Potassium 4.6. BUN 31. Creatinine 0.51. Glucose 141. AST 44. As ALT 42. Lymphocytes 0.5. She is continued on vitamin supplements, IV Solu-Medrol, Symbicort, Spiriva, albuterol, vitamin supplements. Anticoagulated with Eliquis. The patient is seen today 01/18/2022 in follow-up in the intensive care. She is awake and alert in no acute distress. She is down to 12 L high flow nasal cannula. No IV fluids. She is a MedSurg overflow. Blood cultures revealed no growth. No new labs today. If she is continued on Symbicort, albuterol, Spiriva, IV Solu-Medrol. Anticoagulated with Eliquis. The patient is seen today 01/19/2022 in follow-up on the regular medical floor. She is currently resting comfortably in bed. Awake and alert in no acute distress. She is maintaining O2 saturations in the low 90s on 8 L high flow nasal cannula. Blood glucose 210. She is continued on Symbicort, Spiriva, albuterol, IV Solu-Medrol. Anticoagulated with Eliquis. Remains on vitamin supplements. The patient is seen today 01/22/2022 in follow-up on the regular medical floor. She is currently sitting up in a chair at the bedside. Awake and alert in no acute distress. Still requiring 8 L high flow nasal cannula to maintain O2 saturations in the 90s. She's been afebrile. Hemodynamically stable. Blood cultures revealed no growth. White count 19.1. Hemoglobin 9.4. Platelets 317. Sodium 137. Potassium 4.3. BUN 23. Creatinine 0.5. Glucose 137. She is continued on Symbicort, albuterol, Spiriva. Remains on a prednisone taper. Anticoagulated with Eliquis. Continue on vitamin supplements. Objective - Vital Signs Vital signs: Vital Signs Temp 97.6 F 01/22/22 14:00 Pulse 87 01/22/22 14:00 Resp 20 01/22/22 14:00 BP 92/53 01/22/22 14:00 Pulse Ox 94 L 01/22/22 14:00 FiO2 60 01/13/22 16:00 Intake & Output 01/21/22 01/22/22 01/22/22 18:59 06:59 18:59 Intake Total 500 Output Total 600 600 Balance -100 -600 Weight 70.6 kg Intake: Oral 500 Output: Urine 600 600 Other: Voiding Method External Catheter ABP, PAP, CO, CI - Last Documented Arterial Blood Pressure 110/53 - Exam GENERAL EXAM: Alert, frail, 76-year-old female, on 8 L high flow nasal cannula, comfortable in no apparent distress. HEAD: Normocephalic. EYES: Normal reaction of pupils, equal size. NOSE: Clear with pink turbinates. THROAT: No erythema or exudates. NECK: No masses, no JVD. CHEST: No chest wall deformity. LUNGS: Equal air entry with crackles in the bilateral bases. CVS: S1 and S2 normal with no audible murmur, irregular rhythm. ABDOMEN: No hepatosplenomegaly, normal bowel sounds, no guarding or rigidity. SPINE: No scoliosis or deformity SKIN: No rashes. Ecchymosis of the lower lumbar sacral area due to previous fall CENTRAL NERVOUS SYSTEM: No focal deficits, tone is normal in all 4 extremities. EXTREMITIES: There is no peripheral edema. No clubbing, no cyanosis. Peripheral pulses are intact. - Labs CBC & Chem 7: 01/22/22 06:15 01/22/22 06:15 Labs: Abnormal Lab Results - Last 24 Hours (Table) 01/21/22 01/21/22 01/22/22 Range/Units 16:47 20:49 06:15 WBC 19.12 H (4.50-10.00) X 10*3/uL RBC 3.39 L (4.10-5.20) X 10*6/uL Hgb 9.4 L (12.0-15.0) g/dL Hct 29.8 L (37.2-46.3) % MCHC 31.5 L (32.0-37.0) g/dL RDW 16.4 H (11.5-14.5) % Immature Gran # 0.18 H (0.00-0.04) X 10*3/uL Neutrophils # 18.09 H (1.80-7.70) X 10*3/uL Lymphocytes # 0.48 L (0.90-5.00) X 10*3/uL Eosinophils # 0 L (0.04-0.35) X 10*3/uL Carbon Dioxide (20.0-27.5) mmol/L Anion Gap (10.00-18.00) mmol/L Creatinine (0.6-1.5) mg/dL BUN/Creatinine Ratio (12.00-20.00) Ratio Glucose (70-110) mg/dL POC Glucose (mg/dL) 138 H 161 H (70-110) mg/dL Calcium (8.7-10.3) mg/dL Total Protein (6.2-8.2) g/dL Albumin (3.8-4.9) g/dL Albumin/Globulin Ratio (1.60-3.17) g/dL 01/22/22 01/22/22 01/22/22 Range/Units 06:15 06:19 11:20 WBC (4.50-10.00) X 10*3/uL RBC (4.10-5.20) X 10*6/uL Hgb (12.0-15.0) g/dL Hct (37.2-46.3) % MCHC (32.0-37.0) g/dL RDW (11.5-14.5) % Immature Gran # (0.00-0.04) X 10*3/uL Neutrophils # (1.80-7.70) X 10*3/uL Lymphocytes # (0.90-5.00) X 10*3/uL Eosinophils # (0.04-0.35) X 10*3/uL Carbon Dioxide 32.0 H (20.0-27.5) mmol/L Anion Gap 6.00 L (10.00-18.00) mmol/L Creatinine 0.5 L (0.6-1.5) mg/dL BUN/Creatinine Ratio 47.40 H (12.00-20.00) Ratio Glucose 137 H (70-110) mg/dL POC Glucose (mg/dL) 152 H 200 H (70-110) mg/dL Calcium 8.1 L (8.7-10.3) mg/dL Total Protein 4.4 L (6.2-8.2) g/dL Albumin 2.4 L (3.8-4.9) g/dL Albumin/Globulin Ratio 1.20 L (1.60-3.17) g/dL Assessment and Plan Assessment: Acute hypoxic respiratory failure secondary to acute COVID-19 pneumonia, underlying bacterial pneumonia is very likely considering her chest x-ray findings and considering elevated pro calcitonin level. Completed a course of Zosyn. Currently on 8 L high flow nasal cannula. Possible interstitial lung disease/pulmonary fibrosis, likely contributing to her acute hypoxic respiratory failure Hypotension, secondary to sepsis/septic shock, septic and hypovolemic shock, currently off norepinephrine History of underlying COPD does not seem to be active at this point. But likely contributing to her hypoxic respiratory failure History of hypothyroidism History of generalized anxiety disorder Elevated d-dimer but negative venous Doppler for DVT, cannot perform CT angiogram of the chest mostly because of her renal functioning Acute dehydration Acute kidney injury secondary to dehydration Paroxysmal atrial fibrillation, anticoagulated with Eliquis Plan: The patient was seen and evaluated Labs and medications reviewed Continue the current treatment plan Titrate the FiO2 as tolerated We will continue to follow I have personally seen and examined the patient, performed the documentation and the assessment and plan as written. Number of minutes spent on the visit: 10. Joint evaluation that was done along with the nurse practitioner. Again the above-mentioned plan. Evaluation was done in more than 20 minutes is advancing 20. The patient is currently on 8 L of oxygen by nasal cannula. We'll try to wean her down further.. Overall condition is stable for now.
[2022-01-22] MEDS: ACETAMINOPHEN TAB 325 MG TAB PO PRN (16:02)
[2022-01-22] MEDS ORDERED: DEXTROSE 50% SYRINGE 50 ML IVP PRN ×2 (16:11)
[2022-01-22 16:16] LABS: Glucose,Whole Blood 177 mg/dL (70-110)
[2022-01-22] MEDS: INSULIN ASPART (NovoLOG) 100 UNIT/ML VIAL SQ SCH ×2 (16:34→21:43)
--- NOTE | 2022-01-22 17:04 | P.PN ---
Subjective Progress Note Date: 01/22/22 Samantha Brown, is a 76-year-old female who presented to [facility] emergency room with a chief complaint of generalized weakness, patient's daughter reported in the emergency room that her mother had a fall 4 days prior to presentation She was evaluated in the emergency room vital examination on presentation revealed Laboratory data revealed a white blood count of 14.4 hemoglobin 12.2 platelet count 476 INR 1.2 d-dimer 3.94 sodium 129 potassium 5.1 chloride 99 CO2 23 BUN 76 creatinine 1.92 lactic acid 1.7 Corps on a virus PCR was positive Testing in the emergency room revealed chest x-ray done in emergency room revealed small bilateral pleural effusions and multifocal areas of increased reticular markings, EKG revealed atrial fibrillation with a heart rate of 86 Patient was admitted to medical floor for further evaluation and treatment. Past medical history is significant for history of hypertension, history of hyperlipidemia, history of hypothyroidism, and history of tobacco use patient smokes 2 packs per day On 01/08/2022 patient was seen and examined in the ICU she is alert responsive in mild distress due to shortness of breath, she was started on BiPAP during the night, she is maintained on norepinephrine for pressure support, she is also maintained on IV antibiotic Zosyn, input from cardiology and pulmonary review, patient's daughter Pily contacted over the phone and all questions answered to her satisfaction. On 01/09/2022 patient remains in the intensive care unit slightly improved. Patient remains on BiPAP. Creatinine improving to 1.41 bun 63. Patient remains on IV heparin. Patient also remains on sodium bicarb current vital signs heart rate 88, respiratory rate 19, blood pressure 108/51 patient satting 93% on BiPAP 40% FiO2. On 01/10/2022 patient was seen and examined in the ICU she is alert responsive in no apparent distress she is maintained on BiPAP, she is stating that her shortness of breath is improving she denies any chest pain there is no nausea or vomiting no abdominal pain no diarrhea and no urinary symptoms, however white blood count is 11 hemoglobin 10.8, BUN 60 creatinine 1.12 On 01/11/2022 patient was seen and examined in the ICU she is alert responsive in no apparent distress BiPAP was discontinued and patient was started on Airvo high flow oxygen she is still maintained on levophed for pressure support and this is being weaned down gradually. White blood count is down today to 7.5 BUN down to 45 creatinine 0.83 patient denies any chest pain or shortness of breath is improving, she is receiving IV antibiotic Zosyn she is also receiving Remdesevir for Covid-19 On 01/12/22, patient was seen and examined in the ICU, she is alert and oriented x 3, patient remains on airvo 55% FiO2, chest x-ray is showing some worsening today with interstitial infiltrates, possible interstitial edema. She remains on Decadron, she is also on eliquis, and she is on Zosyn. patient is still requiring norepinephrine On 01/13/2022 patient remains in the intensive care unit. Patient did require higher levels of irritable last night per nursing staff but is back down to 55%. Steroids were increased per pulmonary and critical care. Current vital signs temp 98.6, heart rate 75, respiratory rate 23, blood pressure 107/71 patient currently on 60% airflow satting 98% On 01/14/2022 patient was seen and examined in the ICU she is alert and oriented 3 in no apparent distress she is still maintained on high flow oxygen there is no fever or chills no headache or dizziness no chest pain she has occasional cough no nausea or vomiting no abdominal pain no diarrhea no blood in the stools, no urinary symptoms Wren catheter is in. On 01/15/2022 patient was seen and examined in the ICU she is alert and responsive in no apparent distress she is maintained on high flow oxygen at 15 L/m via nasal cannula there is no fever or chills no headache or dizziness no chest pain she has shortness of breath with any activity and occasional cough no nausea or vomiting no abdominal pain no diarrhea and no urinary symptoms is ma intained on IV Zosyn inhaled bronchodilators, inhaled steroids, and Eliquis, she is off pressure support at this time On 01/16/2022 patient remains in the intensive care unit. Patient remains on high flow 15 L. Patient remains off pressure support medication at this time. Current vital signs temp 97.7 heart rate 57, respiratory rate 17, blood pressure 100/62 sitting 90% on 15 L. On 01/17/2022 patient was seen and examined in the ICU, she is alert and oriented 3 in no apparent distress, she is still maintained on high flow oxygen at 15 L/m, she denies any chest pain, there is no fever or chills no headache or dizziness she has occasional cough no nausea or vomiting no abdominal pain no diarrhea and no urinary symptoms. Patient has poor oral intake, I was contacted today by the dietitian who recommended tube feeding due to patient consuming less then 25% of her meals, tube feeding was discussed in details with patient and at this time she is refusing, she stated that she will work on eating more of her meals. Nutrition supplements will be admitted On 01/18/2022 patient was seen and examined in the ICU, she is alert and oriented 3. Patient is weaning down in oxygen demand patient currently on high flow nasal cannula 10 L. Current vital signs temp 97.4, heart rate 78, res piratory rate 14, blood pressure 98/51. On 01/19/2022 patient was seen and examined on the telemetry floor she is alert and oriented in no apparent distress, she is sitting up in a chair, she is main tained on oxygen at 10 L via high flow nasal cannula, she is denying any complaints at this time there is no fever or chills no headache or dizziness no chest pain no shortness of breath at rest no cough no nausea or vomiting no abdominal pain no diarrhea no blood in the stools no burning with urination no frequency or urgency and no hematuria. She is still having severe weakness and is only able to pivot from her bed to her chair, physical therapy and occupational therapy are consulted, patient was encouraged to increase her oral intake. On 01/20/2022 patient was seen and examined on the medical floor she is alert and oriented 3 in no apparent distress she is still maintained on oxygen at 8 L via nasal cannula, she is feeling better, there is no fever or chills no headache or dizziness no chest pain no shortness of breath at rest she has occasional cough no nausea or vomiting no abdominal pain no diarrhea no blood in the stools no burning with urination no frequency or urgency and no hematuria, physical therapy and occupational therapy are consulted, patient was encouraged to increase her oral intake. On 01/21/2022 patient was seen and examined on the medical floor she is alert and oriented 3 in no distress she is still complaining of shortness of breath with any activity she is maintained on oxygen at 8 L via nasal cannula otherwise she denies any complaints there is no fever or chills no headache or dizziness no chest pain, she has occasional cough no nausea or vomiting no abdominal pain no diarrhea and no urinary symptoms. Patient was seen by physical therapy and occupational therapy she remains very weak a consultation for Dr. Art was initiated for possible rehab admission. On 01/22/2022 patient was seen and examined on the medical floor she is alert and oriented 3 in no distress there is no fever or chills no headache or dizziness no chest pain no cough no nausea or vomiting no abdominal pain no diarrhea and no urinary symptoms she is still complaining of shortness of breath and generalized weakness she is still requiring 8 L of oxygen per minutes, oxygen is being weaned down gradually she would be transferred to care home in the next 1-2 days for rehab Objective - Vital Signs Vital signs: Vital Signs Temp 97.4 F L 01/22/22 01:22 Pulse 60 01/22/22 01:22 Resp 23 01/22/22 01:22 BP 98/53 01/22/22 01:22 Pulse Ox 94 L 01/22/22 01:22 FiO2 60 01/13/22 16:00 Intake & Output 01/21/22 01/22/22 01/22/22 18:59 06:59 18:59 Intake Total 500 Output Total 600 600 Balance -100 -600 Intake: Oral 500 Output: Urine 600 600 Other: Voiding Method External Catheter ABP, PAP, CO, CI - Last Documented Arterial Blood Pressure 110/53 - Exam In general patient is alert responsive maintained on on oxygen via high flow nasal cannula HEENT head normocephalic and atraumatic Neck is supple no JVD no goiter no lymphadenopathy no carotid bruit Chest examination reveals a scattered crackles bilaterally with mild wheezing Cardiac exam reveals regular heart sounds S1 and S2 no gallops no murmurs Abdomen is soft nontender no organomegaly with normal bowel sounds Extremity exam reveals no edema no cyanosis or clubbing, poor pulses peripherally Neurological examination reveals no gross focal deficits - Labs CBC & Chem 7: 01/22/22 06:15 01/22/22 06:15 Labs: Abnormal Lab Results - Last 24 Hours (Table) 01/21/22 01/21/22 01/22/22 Range/Units 16:47 20:49 06:19 POC Glucose (mg/dL) 138 H 161 H 152 H (70-110) mg/dL Assessment and Plan Plan: Acute hypoxic respiratory failure, improving patient transferred out of ICU. Acute coronary 19 pneumonia Underlying history of chronic obstructive pulmonary disease Sepsis as evidenced by leukocytosis, tachycardia, mild elevation in lactic acid and hypotension Elevated d-dimer Acute kidney injury possibly related to dehydration and prerenal azotemia, will monitor kidney function Underlying history of hypertension Underlying history of hypothyroidism Chronic tobacco use patient smokes up to 2 packs per day Persistent atrial fibrillation with controlled heart rate patient has been switched to oral anticoagulation with eliquis At this time patient is admitted to intensive care unit Pulmonary, vascular surgery, and cardiology consultation requested Patient started on IV antibiotics, IV a Remdesevir, IV steroids and inhaled bronchodilators Medication and labs reviewed will follow closely Prognosis is guarded due to severity of illness
[2022-01-22 21:37] LABS: Glucose,Whole Blood 128 mg/dL (70-110)
[2022-01-22] MEDS: risperiDONE 2 MG TAB PO SCH (21:44)
[2022-01-23] LABS: Glucose,Whole Blood 95 mg/dL (70-110)
[2022-01-23] MEDS ORDERED: SODIUM CHLORIDE 0.9% 500 ML 500 ML IV ONE ×2 (01:52→01:58)
[2022-01-23 02:17] LABS: African American GFR (CKD) >90 (>60 ml/min/1.73 sqM); Anion Gap -1 mmol/L; Blood Urea Nitrogen 41 mg/dL (7-17); Calcium 7.4 mg/dL (8.4-10.2); Carbon Dioxide 32 mmol/L (22-30); Chloride 97 mmol/L (98-107); Glucose 79 mg/dL (74-99); Non-African American GFR(CKD) >90 (>60 ml/min/1.73 sqM); Potassium 3.8 mmol/L (3.5-5.1); Sodium 128 mmol/L (137-145)
[2022-01-23 02:27] LABS: Anisocytosis Slight; Basophils # (A) 0.1 k/uL (0-0.2); Basophils % (A) 0 %; Eosinophils # (A) 0.1 k/uL (0-0.7); Eosinophils % (A) 0 %; HCT 24.8 % (34.0-46.0); HGB 7.9 gm/dL (11.4-16.0); Lymphocytes # (A) 0.8 k/uL (1.0-4.8); Lymphocytes % (A) 4 %; MCH 27.3 pg (25.0-35.0); MCV 85.3 fL (80.0-100.0); Mean Platelet Volume 8.1; Monocytes # (A) 0.4 k/uL (0-1.0); Monocytes % (A) 2 %; Neutrophils # (A) 17.7 k/uL (1.3-7.7); Neutrophils % (A) 93 %; Platelet Count 216 k/uL (150-450); RBC 2.91 m/uL (3.80-5.40); RDW 16.3 % (11.5-15.5); WBC 19.1 k/uL (3.8-10.6)
[2022-01-23] MEDS ORDERED: NOREPINEPHRINE 4 MG in SODIUM CHLORIDE 0.9% 250 ML IV SCH (02:45)
--- NOTE | 2022-01-23 03:05 | XR ---
EXAMINATION TYPE: XR chest 1V DATE OF EXAM: 01/23/2022 COMPARISON: 01/16/2022 HISTORY: Hypotension TECHNIQUE: Single view FINDINGS: There is pulmonary edema. Heart size is fairly normal. There is blunting of the costophreni c angles. Bony thorax is intact. IMPRESSION: There is pulmonary edema and pleural fluid that could be some chronic congestive heart fa ilure and the appearance is not significantly different than old exam.
[2022-01-23 03:24] LABS: Glucose,Whole Blood 94 mg/dL (70-110)
[2022-01-23] MEDS: SODIUM CHLORIDE 0.9% 1,000 ML IV SCH ×3 (03:30→21:07)
[2022-01-23 06:40] LABS: Glucose,Whole Blood 112 mg/dL (70-110)
[2022-01-23 06:48] LABS: Anisocytosis Slight; Basophils % (A) 0 %; Eosinophils % (A) 0 %; HCT 27.2 % (34.0-46.0); Lymphocytes # (A) 0.8 k/uL (1.0-4.8); Lymphocytes % (A) 3 %; MCH 28.3 pg (25.0-35.0); MCV 85.7 fL (80.0-100.0); Mean Platelet Volume 7.8; Monocytes # (A) 0.5 k/uL (0-1.0); Monocytes % (A) 2 %; Neutrophils # (A) 24.9 k/uL (1.3-7.7); Neutrophils % (A) 95 %; Platelet Count 246 k/uL (150-450); RBC 3.17 m/uL (3.80-5.40); WBC 26.3 k/uL (3.8-10.6)
[2022-01-23 06:59] LABS: ALT 18 U/L (4-34); AST 18 U/L (14-36); African American GFR (CKD) >90 (>60 ml/min/1.73 sqM); Albumin 1.8 g/dL (3.5-5.0); Albumin/Globulin Ratio 0.9; Alkaline Phosphatase 69 U/L (38-126); Anion Gap -1 mmol/L; Blood Urea Nitrogen 37 mg/dL (7-17); Carbon Dioxide 31 mmol/L (22-30); Chloride 100 mmol/L (98-107); Glucose 89 mg/dL (74-99); Non-African American GFR(CKD) >90 (>60 ml/min/1.73 sqM); Potassium 3.8 mmol/L (3.5-5.1); Sodium 130 mmol/L (137-145); Total Bilirubin 0.8 mg/dL (0.2-1.3); Total Protein 3.8 g/dL (6.3-8.2)
[2022-01-23] MEDS ORDERED: POTASSIUM CHLORIDE ER 20 MEQ TAB.ER PO SCH (07:00)
[2022-01-23] MEDS: LEVOTHYROXINE 88 MCG TAB PO SCH (07:01)
[2022-01-23] MEDS: INSULIN ASPART (NovoLOG) 100 UNIT/ML VIAL SQ SCH ×4 (07:02→20:43)
[2022-01-23] MEDS: APIXABAN 5 MG TAB PO SCH ×2 (08:19→20:42)
[2022-01-23] MEDS: PANTOPRAZOLE 40 MG/10 ML VIAL IV SCH (08:19)
[2022-01-23] MEDS: NOREPINEPHRINE 8 MG in SODIUM CHLORIDE 0.9% 250 ML IV SCH ×2 (08:19→17:15)
[2022-01-23] MEDS: ZINC SULFATE 220 MG CAP PO SCH (08:20)
[2022-01-23] MEDS: ASCORBIC ACID 500 MG TAB PO SCH ×2 (08:20→20:42)
[2022-01-23] MEDS: CHOLECALCIFEROL 25 MCG (1000 IU) TABLET PO SCH (08:20)
[2022-01-23] MEDS ORDERED: predniSONE 20 MG TAB PO SCH (09:00)
[2022-01-23] MEDS: SYMBICORT 160-4.5 MCG INHALER INHALATION SCH ×2 (09:24→20:37)
[2022-01-23] MEDS: TIOTROPIUM 2.5 MCG INHALER INHALATION SCH (09:24)
[2022-01-23] MEDS: ALBUTEROL HFA INHALER INHALATION SCH ×4 (09:24→20:37)
[2022-01-23] MEDS: CEFEPIME 2 GM in SODIUM CHLORIDE 0.9% 100 ML IVPB SCH ×2 (10:53→17:16)
[2022-01-23] MEDS: CITALOPRAM HYDROBROMIDE 10 MG TAB PO SCH (10:54)
[2022-01-23 11:16] LABS: Glucose,Whole Blood 121 mg/dL (70-110)
[2022-01-23 11:57] LABS: C Reactive Protein 19.8 mg/dL (<1.0)
--- NOTE | 2022-01-23 15:07 | P.PCN ---
Date of Procedure: 01/23/22 Operative Findings: Preoperative Diagnosis: acute hypoxic respiratory failure Postoperative Diagnosis: same Procedure(s) Performed: Arterial line insertion Anesthesia: local Surgeon: Deondre Barlow Estimated Blood Loss (ml): 0 Pathology: none sent Condition: critical Disposition: ICU Operative Findings: Indication: Hemodynamic monitoring. A time-out was completed verifying correct patient, procedure, site, positioning, and implant(s) or special equipment if applicable. Allens test was performed to ensure adequate perfusion. The patient s right wrist or was prepped and draped in sterile fashion. 1% Lidocaine was used to anesthetize the area. An 18G Arrow arterial line was introduced into the right radial artery. The catheter was threaded over the guide wire and the needle was removed with appropriate pulsatile blood return. Blood loss was minimal. The catheter was then sutured in place to the skin and a sterile dressing applied. Perfusion to the extremity distal to the point of catheter insertion was checked and found to be adequate. The patient tolerated the procedure well and there were no complications.
--- NOTE | 2022-01-23 15:35 | P.PN ---
Subjective Progress Note Date: 01/23/22 This is a 76-year-old female who is not a great historian, her daughter is at bedside, patient is known to have history of hypothyroidism, COPD, history generalized anxiety disorder, patient has been weak for the last few days. According to the daughter, patient fell 4 days ago, and has been complaining of pain to her buttocks. Patient also had some intermittent cough, shortness of breath, and according to the daughter the patient has not been taking her medications including her thyroid medicine and her Combivent for COPD. Patient is a heavy smoker, she smoked 2 packs a day for many years. Does not use oxygen at home. Workup in the ER included a CBC which showed leukocytosis. Elevated d-dimer of 3.94. Abnormal renal profile with a BUN of 76 creatinine of 1.92 and low sodium of 129, elevated BNP level of 2580, normal troponin, and normal liver enzymes. Patient was also noted to have positive PCR for COVID-19, chest x-ray showed multifocal reticular markings and multifocal atypical infiltrates. Possible underlying pulmonary fibrosis. No old x-ray for comparison. Patient was also noted to be relatively hypotensive requiring fluid boluses with slight improvement of the blood pressure. On 01/23/2022, the patient is being seen for a follow-up. The patient got transferred to the intensive care unit overnight because of hypotension. The patient is currently in the intensive care unit. Noted the patient was in the ICU initially for hypoxic respiratory failure and the patient had high oxygen requirements and the patient was utilizing high flow oxygen at 55 L at one point . The patient gradually improved and the patient was transitioned to a telemetry unit where she was recovering. She is still requiring oxygen at 8 L per minute nasal cannula. Nevertheless, overnight, she became hypotensive and she required fluids and pressors. The patient was given a bolus of 1 L of normal saline. Currently she is on norepinephrine infusion which is running at 0.18 mcg/kg/m. Arterial line catheter was inserted for blood pressure monitoring. Meanwhile, sepsis workup was initiated and the patient developed a rise in a white cell count. The white cell count today is at 26.3. Based on that, cultures will be sent and the patient will be started on broad-spectrum antibiotics. Electrolytes are all within normal limits. Oxygenation remains stable and the patient denies having any worsening shortness of breath. She denies having any cough or sputum production. A repeat chest x-ray was done today and the patient was found to have evidence of some interstitial back up pulmonary infiltrates consistent with bilateral post Covid 19 infection/pneumonia versus edema. Noted the patient has a preserved LV function with an ejection fraction is essentially within normal limits and this is based on echocardiogram that was done on 01/09/2022 that showed a ejection fraction of 55% without any significant valvular abnormalities. The patient has no central lines. No denies vomiting or diarrhea or abdominal pain. No skin rashes. No altered mentation. No headaches. Ultrasound the gallbladder showed large gallstones in the neck of the gallbladder without evidence of any acute cholecystitis. Objective - Vital Signs Vital signs: Vital Signs Temp 98.3 F 01/23/22 12:00 Pulse 83 01/23/22 14:00 Resp 20 01/23/22 14:00 BP 97/55 01/23/22 14:00 Pulse Ox 96 01/23/22 14:00 FiO2 60 01/13/22 16:00 Intake & Output 01/22/22 01/23/22 01/23/22 18:59 06:59 18:59 Intake Total 6618.811 1058.893 Output Total 800 0 850 Balance -800 1384.641 701.893 Weight 70.6 kg 72.4 kg Intake: IV 1300 900 Sodium Chloride 0.9% 1, 300 900 000 ml @ 100 mls/hr IV . Q10H RADHA Rx#:[id number] Sodium Chloride 0.9% 500 1000 ml 500 ml @ 999 mls/hr IV .Q31M ONE Rx#:[id number] Intake, IV Titration 84.641 411.893 Amount Cefepime 2 gm In Sodium 100 Chloride 0.9% 100 ml @ 25 mls/hr IVPB Q8HR RADHA Rx# :[id number] Norepinephrine 4 mg In 84.641 Sodium Chloride 0.9% 250 ml @ 0.03 MCG/KG/MIN 8.07 mls/hr IV .Q24H RADHA Rx#: [id number] Norepinephrine 8 mg In 311.893 Sodium Chloride 0.9% 250 ml @ 0.03 MCG/KG/MIN 4. 203 mls/hr IV .Q24H RADHA Rx#:[id number] Oral 240 Output: Urine 800 0 850 Other: Voiding Method External Catheter External Catheter ABP, PAP, CO, CI - Last Documented Arterial Blood Pressure 89/51 - Exam GENERAL EXAM: Alert, frail, 76-year-old female, on 8 L high flow nasal cannula, comfortable in no apparent distress. HEAD: Normocephalic. EYES: Normal reaction of pupils, equal size. NOSE: Clear with pink turbinates. THROAT: No erythema or exudates. NECK: No masses, no JVD. CHEST: No chest wall deformity. LUNGS: Equal air entry with crackles in the bilateral bases. CVS: S1 and S2 normal with no audible murmur, irregular rhythm. ABDOMEN: No hepatosplenomegaly, normal bowel sounds, no guarding or rigidity. SPINE: No scoliosis or deformity SKIN: No rashes. Ecchymosis of the lower lumbar sacral area due to previous fall CENTRAL NERVOUS SYSTEM: No focal deficits, tone is normal in all 4 extremities. EXTREMITIES: There is no peripheral edema. No clubbing, no cyanosis. Peripheral pulses are intact. - Labs CBC & Chem 7: 01/23/22 06:06 01/23/22 06:06 Labs: Abnormal Lab Results - Last 24 Hours (Table) 01/22/22 01/22/22 01/23/22 Range/Units 16:06 21:36 01:53 WBC (3.8-10.6) k/uL RBC (3.80-5.40) m/uL Hgb (11.4-16.0) gm/dL Hct (34.0-46.0) % RDW (11.5-15.5) % Neutrophils # (1.3-7.7) k/uL Lymphocytes # (1.0-4.8) k/uL D-Dimer (<0.60) mg/L FEU Sodium (137-145) mmol/L Chloride (98-107) mmol/L Carbon Dioxide (22-30) mmol/L BUN (7-17) mg/dL POC Glucose (mg/dL) 177 H 128 H (70-110) mg/dL Plasma Lactic Acid Marshall 2.1 H* (0.7-2.0) mmol/L Calcium (8.4-10.2) mg/dL Lactate Dehydrogenase (313-618) U/L C-Reactive Protein (<1.0) mg/dL Total Protein (6.3-8.2) g/dL Albumin (3.5-5.0) g/dL Procalcitonin (0.02-0.09) ng/mL 01/23/22 01/23/22 01/23/22 Range/Units 01:53 02:19 06:06 WBC 19.1 H 26.3 H (3.8-10.6) k/uL RBC 2.91 L 3.17 L (3.80-5.40) m/uL Hgb 7.9 L D 9.0 L (11.4-16.0) gm/dL Hct 24.8 L 27.2 L (34.0-46.0) % RDW 16.3 H 16.0 H (11.5-15.5) % Neutrophils # 17.7 H 24.9 H (1.3-7.7) k/uL Lymphocytes # 0.8 L 0.8 L (1.0-4.8) k/uL D-Dimer (<0.60) mg/L FEU Sodium 128 L (137-145) mmol/L Chloride 97 L (98-107) mmol/L Carbon Dioxide 32 H (22-30) mmol/L BUN 41 H (7-17) mg/dL POC Glucose (mg/dL) (70-110) mg/dL Plasma Lactic Acid Marshall (0.7-2.0) mmol/L Calcium 7.4 L (8.4-10.2) mg/dL Lactate Dehydrogenase (313-618) U/L C-Reactive Protein (<1.0) mg/dL Total Protein (6.3-8.2) g/dL Albumin (3.5-5.0) g/dL Procalcitonin (0.02-0.09) ng/mL 01/23/22 01/23/22 01/23/22 Range/Units 06:06 06:39 10:59 WBC (3.8-10.6) k/uL RBC (3.80-5.40) m/uL Hgb (11.4-16.0) gm/dL Hct (34.0-46.0) % RDW (11.5-15.5) % Neutrophils # (1.3-7.7) k/uL Lymphocytes # (1.0-4.8) k/uL D-Dimer (<0.60) mg/L FEU Sodium 130 L (137-145) mmol/L Chloride (98-107) mmol/L Carbon Dioxide 31 H (22-30) mmol/L BUN 37 H (7-17) mg/dL POC Glucose (mg/dL) 112 H (70-110) mg/dL Plasma Lactic Acid Marshall (0.7-2.0) mmol/L Calcium 7.0 L (8.4-10.2) mg/dL Lactate Dehydrogenase 675 H (313-618) U/L C-Reactive Protein 19.8 H (<1.0) mg/dL Total Protein 3.8 L (6.3-8.2) g/dL Albumin 1.8 L (3.5-5.0) g/dL Procalcitonin (0.02-0.09) ng/mL 01/23/22 01/23/22 01/23/22 Range/Units 10:59 10:59 11:15 WBC (3.8-10.6) k/uL RBC (3.80-5.40) m/uL Hgb (11.4-16.0) gm/dL Hct (34.0-46.0) % RDW (11.5-15.5) % Neutrophils # (1.3-7.7) k/uL Lymphocytes # (1.0-4.8) k/uL D-Dimer 1.43 H (<0.60) mg/L FEU Sodium (137-145) mmol/L Chloride (98-107) mmol/L Carbon Dioxide (22-30) mmol/L BUN (7-17) mg/dL POC Glucose (mg/dL) 121 H (70-110) mg/dL Plasma Lactic Acid Marshall (0.7-2.0) mmol/L Calcium (8.4-10.2) mg/dL Lactate Dehydrogenase (313-618) U/L C-Reactive Protein (<1.0) mg/dL Total Protein (6.3-8.2) g/dL Albumin (3.5-5.0) g/dL Procalcitonin 3.89 H (0.02-0.09) ng/mL Assessment and Plan Plan: Acute hypoxic respiratory failure secondary to a pulmonary fibrosis addition to a Covid 19 pneumonia. Patient could've also had a pulmonary embolism based on CT of the chest as well as done on 01/18/2022. The patient was requiring high amount of oxygen initially BiPAP and later on high flow oxygen and currently is down to 8 L O2 nasal cannula. She does have underlying chronic lung disease Pulmonary fibrosis and chronic hypoxic respiratory failure Severe pulmonary hypertension with RV systolic pressure of 74, questionable RV t hrombus Acute Hypotension, secondary to sepsis/septic shock. It is currently on that investigation. The patient got transferred to the ICU because of acute hypotension and acute leukocytosis. The patient is currently on pressors and the patient on norepinephrine infusion and sepsis workup is in progress. Gallstones without evidence of any cholecystitis Normal left ventricular ejection fraction without evidence of any heart failure COPD History of chronic smoking History of hypothyroidism. History of generalized anxiety disorder . Acute dehydration, resolved. Acute kidney injury, recovered Paroxysmal atrial fibrillation DNR/DNI Plan The patient will have blood and urine cultures sent Continue normal saline at rate of 100 mL an hour Wean off pressors and the patient is currently on norepinephrine infusion Arterial line catheter was inserted for blood pressure monitoring Check pro calcitonin level Check inflammatory markers focal ongoing Covid 19 Start the patient on Antibiotic coverage with IV cefepime Chest x-ray was noted Wean down FiO2 as tolerated currently she is down to 8 L hold diuretics Continue the prednisone burst taper We'll continue to follow Patient will be kept in intensive care unit for now
--- NOTE | 2022-01-23 16:58 | P.PN ---
Subjective Progress Note Date: 01/21/22 Principal diagnosis: Sacral wound Patient is a 76-year old female with multiple comorbidities including COPD current 2 pack smoker hypothyroidism presented to the hospital with weakness patient also have a fall landed on her gluteal area and has developed a deep tissue injury to the sacral area and tested positive for COVID-19. On today's evaluation that is 01/21/2022 the patient continues to be afebrile, patient is breathing comfortably currently on 8 L high flow oxygen to maintain her O2 sats, the patient denies chest pain patient did have occasional dry cough no nausea no vomiting no abdominal pain no diarrhea Objective - Vital Signs Vital signs: Vital Signs Temp 98.2 F 01/21/22 14:01 Pulse 87 01/21/22 14:01 Resp 18 01/21/22 14:01 BP 102/58 01/21/22 14:01 Pulse Ox 89 L 01/21/22 14:01 FiO2 60 01/13/22 16:00 Intake & Output 01/20/22 01/21/22 01/21/22 18:59 06:59 18:59 Intake Total 150 Balance 150 Intake: Oral 150 Other: Voiding Method External Catheter External Catheter External Catheter # Voids 3 3 ABP, PAP, CO, CI - Last Documented Arterial Blood Pressure 110/53 - Exam GENERAL DESCRIPTION: An elderly female lying in bed in no distress RESPIRATORY SYSTEM: Unlabored breathing , decreased breath sounds at bases HEART: S1 S2 regular rate and rhythm , ABDOMEN: Soft , no tenderness EXTREMITIES: No edema feet Sacral pressure ulcer is currently dressed - Labs CBC & Chem 7: 01/23/22 06:06 01/23/22 06:06 Labs: Abnormal Lab Results - Last 24 Hours (Table) 01/20/22 01/20/22 01/21/22 Range/Units 16:51 20:49 06:25 POC Glucose (mg/dL) 164 H 195 H 133 H (70-110) mg/dL Assessment and Plan (1) Pressure ulcer of sacral region, stage 2 Current Visit: Yes Status: Acute Code(s): L89.152 - PRESSURE ULCER OF SACRAL REGION, STAGE 2 SNOMED Code(s): 74674077625497 Plan: 1patient with acute respiratory failure which is multifactorial concerning for possible pneumonia in this patient also tested positive for COVID however did have elevated procalcitonin with concern for superadded bacterial pneumonia for which patient has completed her antibiotic therapy patient to continue with the Solu-Medrol Eliquis and bronchodilator and monitor clinical course closely 2-patient with stage II sacral area with no cellulitis patient to continue local wound care with skin protective cream and keep the area off the pressure, and no need for systemic antibiotic therapy Time with Patient: Less than 30
[2022-01-23 17:00] LABS: Glucose,Whole Blood 251 mg/dL (70-110)
--- NOTE | 2022-01-23 17:01 | P.PN ---
Subjective Progress Note Date: 01/23/22 Principal diagnosis: Sacral wound Patient is a 76-year old female with multiple comorbidities including COPD current 2 pack smoker hypothyroidism presented to the hospital with weakness patient also have a fall landed on her gluteal area and has developed a deep tissue injury to the sacral area and tested positive for COVID-19. On today's evaluation that is 01/23/2022 the patient did have an episode of hypotension requiring fluid resuscitation and the patient has been transferred to the ICU, patient is currently awake and alert on nasal cannula oxygen the patient denies having any chest pain he did have a cough not begin any sputum no nausea no vomiting and no diarrhea has been reported Objective - Vital Signs Vital signs: Vital Signs Temp 98.3 F 01/23/22 12:00 Pulse 83 01/23/22 14:00 Resp 20 01/23/22 14:00 BP 97/55 01/23/22 14:00 Pulse Ox 96 01/23/22 14:00 FiO2 60 01/13/22 16:00 Intake & Output 01/22/22 01/23/22 01/23/22 18:59 06:59 18:59 Intake Total 9623.848 7078.893 Output Total 800 0 850 Balance -800 1384.641 601.893 Weight 70.6 kg 72.4 kg Intake: IV 1300 800 Sodium Chloride 0.9% 1, 300 800 000 ml @ 100 mls/hr IV . Q10H [facility] Rx#:[id number] Sodium Chloride 0.9% 500 1000 ml 500 ml @ 999 mls/hr IV .Q31M [facility] Rx#:[id number] Intake, IV Titration 84.641 411.893 Amount Cefepime 2 gm In Sodium 100 Chloride 0.9% 100 ml @ 25 mls/hr IVPB Q8HR [facility] Rx# :[id number] Norepinephrine 4 mg In 84.641 Sodium Chloride 0.9% 250 ml @ 0.03 MCG/KG/MIN 8.07 mls/hr IV .Q24H [facility] Rx#: [id number] Norepinephrine 8 mg In 311.893 Sodium Chloride 0.9% 250 ml @ 0.03 MCG/KG/MIN 4. 203 mls/hr IV .Q24H [facility] Rx#:[id number] Oral 240 Output: Urine 800 0 850 Other: Voiding Method External Catheter External Catheter ABP, PAP, CO, CI - Last Documented Arterial Blood Pressure 89/51 - Exam GENERAL DESCRIPTION: An elderly female lying in bed in no distress RESPIRATORY SYSTEM: Unlabored breathing , decreased breath sounds at bases HEART: S1 S2 regular rate and rhythm , ABDOMEN: Soft , no tenderness EXTREMITIES: No edema feet Sacral pressure ulcer is currently dressed - Labs CBC & Chem 7: 01/23/22 06:06 01/23/22 06:06 Labs: Abnormal Lab Results - Last 24 Hours (Table) 01/22/22 01/22/22 01/23/22 Range/Units 16:06 21:36 01:53 WBC (3.8-10.6) k/uL RBC (3.80-5.40) m/uL Hgb (11.4-16.0) gm/dL Hct (34.0-46.0) % RDW (11.5-15.5) % Neutrophils # (1.3-7.7) k/uL Lymphocytes # (1.0-4.8) k/uL D-Dimer (<0.60) mg/L FEU Sodium (137-145) mmol/L Chloride (98-107) mmol/L Carbon Dioxide (22-30) mmol/L BUN (7-17) mg/dL POC Glucose (mg/dL) 177 H 128 H (70-110) mg/dL Plasma Lactic Acid Marshall 2.1 H* (0.7-2.0) mmol/L Calcium (8.4-10.2) mg/dL Lactate Dehydrogenase (313-618) U/L C-Reactive Protein (<1.0) mg/dL Total Protein (6.3-8.2) g/dL Albumin (3.5-5.0) g/dL Procalcitonin (0.02-0.09) ng/mL 01/23/22 01/23/22 01/23/22 Range/Units 01:53 02:19 06:06 WBC 19.1 H 26.3 H (3.8-10.6) k/uL RBC 2.91 L 3.17 L (3.80-5.40) m/uL Hgb 7.9 L D 9.0 L (11.4-16.0) gm/dL Hct 24.8 L 27.2 L (34.0-46.0) % RDW 16.3 H 16.0 H (11.5-15.5) % Neutrophils # 17.7 H 24.9 H (1.3-7.7) k/uL Lymphocytes # 0.8 L 0.8 L (1.0-4.8) k/uL D-Dimer (<0.60) mg/L FEU Sodium 128 L (137-145) mmol/L Chloride 97 L (98-107) mmol/L Carbon Dioxide 32 H (22-30) mmol/L BUN 41 H (7-17) mg/dL POC Glucose (mg/dL) (70-110) mg/dL Plasma Lactic Acid Marshall (0.7-2.0) mmol/L Calcium 7.4 L (8.4-10.2) mg/dL Lactate Dehydrogenase (313-618) U/L C-Reactive Protein (<1.0) mg/dL Total Protein (6.3-8.2) g/dL Albumin (3.5-5.0) g/dL Procalcitonin (0.02-0.09) ng/mL 01/23/22 01/23/22 01/23/22 Range/Units 06:06 06:39 10:59 WBC (3.8-10.6) k/uL RBC (3.80-5.40) m/uL Hgb (11.4-16.0) gm/dL Hct (34.0-46.0) % RDW (11.5-15.5) % Neutrophils # (1.3-7.7) k/uL Lymphocytes # (1.0-4.8) k/uL D-Dimer (<0.60) mg/L FEU Sodium 130 L (137-145) mmol/L Chloride (98-107) mmol/L Carbon Dioxide 31 H (22-30) mmol/L BUN 37 H (7-17) mg/dL POC Glucose (mg/dL) 112 H (70-110) mg/dL Plasma Lactic Acid Marshall (0.7-2.0) mmol/L Calcium 7.0 L (8.4-10.2) mg/dL Lactate Dehydrogenase 675 H (313-618) U/L C-Reactive Protein 19.8 H (<1.0) mg/dL Total Protein 3.8 L (6.3-8.2) g/dL Albumin 1.8 L (3.5-5.0) g/dL Procalcitonin (0.02-0.09) ng/mL 01/23/22 01/23/22 01/23/22 Range/Units 10:59 10:59 11:15 WBC (3.8-10.6) k/uL RBC (3.80-5.40) m/uL Hgb (11.4-16.0) gm/dL Hct (34.0-46.0) % RDW (11.5-15.5) % Neutrophils # (1.3-7.7) k/uL Lymphocytes # (1.0-4.8) k/uL D-Dimer 1.43 H (<0.60) mg/L FEU Sodium (137-145) mmol/L Chloride (98-107) mmol/L Carbon Dioxide (22-30) mmol/L BUN (7-17) mg/dL POC Glucose (mg/dL) 121 H (70-110) mg/dL Plasma Lactic Acid Marshall (0.7-2.0) mmol/L Calcium (8.4-10.2) mg/dL Lactate Dehydrogenase (313-618) U/L C-Reactive Protein (<1.0) mg/dL Total Protein (6.3-8.2) g/dL Albumin (3.5-5.0) g/dL Procalcitonin 3.89 H (0.02-0.09) ng/mL Assessment and Plan (1) Pressure ulcer of sacral region, stage 2 Current Visit: Yes Status: Acute Code(s): L89.152 - PRESSURE ULCER OF SACRAL REGION, STAGE 2 SNOMED Code(s): 04642705401639 Plan: 1patient with leukocytosis and hypotension requiring transfer to the ICU, chest x-ray has been mostly pulmonary edemain change, patient did have elevated white count and progress attending culture has been obtained patient be started on cefepime to continue we will try to obtain sputum to narrow down antibiotics and monitor clinical course closely Time with Patient: Less than 30
[2022-01-23 17:14] LABS: Glucose,Whole Blood 256 mg/dL (70-110)
--- NOTE | 2022-01-23 17:40 | P.PN ---
Subjective Progress Note Date: 01/23/22 Samantha Brown, is a 76-year-old female who presented to [facility] emergency room with a chief complaint of generalized weakness, patient's daughter reported in the emergency room that her mother had a fall 4 days prior to presentation She was evaluated in the emergency room vital examination on presentation revealed Laboratory data revealed a white blood count of 14.4 hemoglobin 12.2 platelet count 476 INR 1.2 d-dimer 3.94 sodium 129 potassium 5.1 chloride 99 CO2 23 BUN 76 creatinine 1.92 lactic acid 1.7 Corps on a virus PCR was positive Testing in the emergency room revealed chest x-ray done in emergency room revealed small bilateral pleural effusions and multifocal areas of increased reticular markings, EKG revealed atrial fibrillation with a heart rate of 86 Patient was admitted to medical floor for further evaluation and treatment. Past medical history is significant for history of hypertension, history of hyperlipidemia, history of hypothyroidism, and history of tobacco use patient smokes 2 packs per day On 01/08/2022 patient was seen and examined in the ICU she is alert responsive in mild distress due to shortness of breath, she was started on BiPAP during the night, she is maintained on norepinephrine for pressure support, she is also maintained on IV antibiotic Zosyn, input from cardiology and pulmonary review, patient's daughter Pily contacted over the phone and all questions answered to her satisfaction. On 01/09/2022 patient remains in the intensive care unit slightly improved. Patient remains on BiPAP. Creatinine improving to 1.41 bun 63. Patient remains on IV heparin. Patient also remains on sodium bicarb current vital signs heart rate 88, respiratory rate 19, blood pressure 108/51 patient satting 93% on BiPAP 40% FiO2. On 01/10/2022 patient was seen and examined in the ICU she is alert responsive in no apparent distress she is maintained on BiPAP, she is stating that her shortness of breath is improving she denies any chest pain there is no nausea or vomiting no abdominal pain no diarrhea and no urinary symptoms, however white blood count is 11 hemoglobin 10.8, BUN 60 creatinine 1.12 On 01/11/2022 patient was seen and examined in the ICU she is alert responsive in no apparent distress BiPAP was discontinued and patient was started on Airvo high flow oxygen she is still maintained on levophed for pressure support and this is being weaned down gradually. White blood count is down today to 7.5 BUN down to 45 creatinine 0.83 patient denies any chest pain or shortness of breath is improving, she is receiving IV antibiotic Zosyn she is also receiving Remdesevir for Covid-19 On 01/12/22, patient was seen and examined in the ICU, she is alert and oriented x 3, patient remains on airvo 55% FiO2, chest x-ray is showing some worsening today with interstitial infiltrates, possible interstitial edema. She remains on Decadron, she is also on eliquis, and she is on Zosyn. patient is still requiring norepinephrine On 01/13/2022 patient remains in the intensive care unit. Patient did require higher levels of irritable last night per nursing staff but is back down to 55%. Steroids were increased per pulmonary and critical care. Current vital signs temp 98.6, heart rate 75, respiratory rate 23, blood pressure 107/71 patient currently on 60% airflow satting 98% On 01/14/2022 patient was seen and examined in the ICU she is alert and oriented 3 in no apparent distress she is still maintained on high flow oxygen there is no fever or chills no headache or dizziness no chest pain she has occasional cough no nausea or vomiting no abdominal pain no diarrhea no blood in the stools, no urinary symptoms Wren catheter is in. On 01/15/2022 patient was seen and examined in the ICU she is alert and responsive in no apparent distress she is maintained on high flow oxygen at 15 L/m via nasal cannula there is no fever or chills no headache or dizziness no chest pain she has shortness of breath with any activity and occasional cough no nausea or vomiting no abdominal pain no diarrhea and no urinary symptoms is ma intained on IV Zosyn inhaled bronchodilators, inhaled steroids, and Eliquis, she is off pressure support at this time On 01/16/2022 patient remains in the intensive care unit. Patient remains on high flow 15 L. Patient remains off pressure support medication at this time. Current vital signs temp 97.7 heart rate 57, respiratory rate 17, blood pressure 100/62 sitting 90% on 15 L. On 01/17/2022 patient was seen and examined in the ICU, she is alert and oriented 3 in no apparent distress, she is still maintained on high flow oxygen at 15 L/m, she denies any chest pain, there is no fever or chills no headache or dizziness she has occasional cough no nausea or vomiting no abdominal pain no diarrhea and no urinary symptoms. Patient has poor oral intake, I was contacted today by the dietitian who recommended tube feeding due to patient consuming less then 25% of her meals, tube feeding was discussed in details with patient and at this time she is refusing, she stated that she will work on eating more of her meals. Nutrition supplements will be admitted On 01/18/2022 patient was seen and examined in the ICU, she is alert and oriented 3. Patient is weaning down in oxygen demand patient currently on high flow nasal cannula 10 L. Current vital signs temp 97.4, heart rate 78, res piratory rate 14, blood pressure 98/51. On 01/19/2022 patient was seen and examined on the telemetry floor she is alert and oriented in no apparent distress, she is sitting up in a chair, she is main tained on oxygen at 10 L via high flow nasal cannula, she is denying any complaints at this time there is no fever or chills no headache or dizziness no chest pain no shortness of breath at rest no cough no nausea or vomiting no abdominal pain no diarrhea no blood in the stools no burning with urination no frequency or urgency and no hematuria. She is still having severe weakness and is only able to pivot from her bed to her chair, physical therapy and occupational therapy are consulted, patient was encouraged to increase her oral intake. On 01/20/2022 patient was seen and examined on the medical floor she is alert and oriented 3 in no apparent distress she is still maintained on oxygen at 8 L via nasal cannula, she is feeling better, there is no fever or chills no headache or dizziness no chest pain no shortness of breath at rest she has occasional cough no nausea or vomiting no abdominal pain no diarrhea no blood in the stools no burning with urination no frequency or urgency and no hematuria, physical therapy and occupational therapy are consulted, patient was encouraged to increase her oral intake. On 01/21/2022 patient was seen and examined on the medical floor she is alert and oriented 3 in no distress she is still complaining of shortness of breath with any activity she is maintained on oxygen at 8 L via nasal cannula otherwise she denies any complaints there is no fever or chills no headache or dizziness no chest pain, she has occasional cough no nausea or vomiting no abdominal pain no diarrhea and no urinary symptoms. Patient was seen by physical therapy and occupational therapy she remains very weak a consultation for Dr. Art was initiated for possible rehab admission. On 01/22/2022 patient was seen and examined on the medical floor she is alert and oriented 3 in no distress there is no fever or chills no headache or dizziness no chest pain no cough no nausea or vomiting no abdominal pain no diarrhea and no urinary symptoms she is still complaining of shortness of breath and generalized weakness she is still requiring 8 L of oxygen per minutes, oxygen is being weaned down gradually she would be transferred to senior care in the next 1-2 days for rehab On 01/23/2022 patient was seen and examined in the ICU last night patient had low blood pressure she was given 2 boluses of normal saline 500 mL, however her blood pressure continued to decline and was down to 75/38 patient was transferred to intensive care unit and was started on IV levophed she was evaluated this morning by critical care and was started on IV cefepime. Currently she is stable in ICU she denies any complaints Objective - Vital Signs Vital signs: Vital Signs Temp 98.3 F 01/23/22 12:00 Pulse 73 01/23/22 15:15 Resp 21 01/23/22 15:15 BP 100/58 01/23/22 15:00 Pulse Ox 97 01/23/22 15:15 FiO2 60 01/13/22 16:00 Intake & Output 01/22/22 01/23/22 01/23/22 18:59 06:59 18:59 Intake Total 4522.454 1494.654 Output Total 800 0 850 Balance -800 1384.641 858.654 Weight 70.6 kg 72.4 kg Intake: IV 1300 1000 Sodium Chloride 0.9% 1, 300 1000 000 ml @ 100 mls/hr IV . Q10H [facility] Rx#:[id number] Sodium Chloride 0.9% 500 1000 ml 500 ml @ 999 mls/hr IV .Q31M [facility] Rx#:[id number] Intake, IV Titration 84.641 468.654 Amount Cefepime 2 gm In Sodium 100 Chloride 0.9% 100 ml @ 25 mls/hr IVPB Q8HR [facility] Rx# :[id number] Norepinephrine 4 mg In 84.641 Sodium Chloride 0.9% 250 ml @ 0.03 MCG/KG/MIN 8.07 mls/hr IV .Q24H [facility] Rx#: [id number] Norepinephrine 8 mg In 368.654 Sodium Chloride 0.9% 250 ml @ 0.03 MCG/KG/MIN 4. 203 mls/hr IV .Q24H [facility] Rx#:[id number] Oral 240 Output: Urine 800 0 850 Other: Voiding Method External Catheter External Catheter ABP, PAP, CO, CI - Last Documented Arterial Blood Pressure 91/47 - Exam In general patient is alert responsive maintained on on oxygen via high flow nasal cannula HEENT head normocephalic and atraumatic Neck is supple no JVD no goiter no lymphadenopathy no carotid bruit Chest examination reveals a scattered crackles bilaterally with mild wheezing Cardiac exam reveals regular heart sounds S1 and S2 no gallops no murmurs Abdomen is soft nontender no organomegaly with normal bowel sounds Extremity exam reveals no edema no cyanosis or clubbing, poor pulses peripherally Neurological examination reveals no gross focal deficits - Labs CBC & Chem 7: 01/23/22 06:06 01/23/22 06:06 Labs: Abnormal Lab Results - Last 24 Hours (Table) 01/22/22 01/23/22 01/23/22 Range/Units 21:36 01:53 01:53 WBC (3.8-10.6) k/uL RBC (3.80-5.40) m/uL Hgb (11.4-16.0) gm/dL Hct (34.0-46.0) % RDW (11.5-15.5) % Neutrophils # (1.3-7.7) k/uL Lymphocytes # (1.0-4.8) k/uL D-Dimer (<0.60) mg/L FEU Sodium 128 L (137-145) mmol/L Chloride 97 L (98-107) mmol/L Carbon Dioxide 32 H (22-30) mmol/L BUN 41 H (7-17) mg/dL POC Glucose (mg/dL) 128 H (70-110) mg/dL Plasma Lactic Acid Marshall 2.1 H* (0.7-2.0) mmol/L Calcium 7.4 L (8.4-10.2) mg/dL Lactate Dehydrogenase (313-618) U/L C-Reactive Protein (<1.0) mg/dL Total Protein (6.3-8.2) g/dL Albumin (3.5-5.0) g/dL Procalcitonin (0.02-0.09) ng/mL 01/23/22 01/23/22 01/23/22 Range/Units 02:19 06:06 06:06 WBC 19.1 H 26.3 H (3.8-10.6) k/uL RBC 2.91 L 3.17 L (3.80-5.40) m/uL Hgb 7.9 L D 9.0 L (11.4-16.0) gm/dL Hct 24.8 L 27.2 L (34.0-46.0) % RDW 16.3 H 16.0 H (11.5-15.5) % Neutrophils # 17.7 H 24.9 H (1.3-7.7) k/uL Lymphocytes # 0.8 L 0.8 L (1.0-4.8) k/uL D-Dimer (<0.60) mg/L FEU Sodium 130 L (137-145) mmol/L Chloride (98-107) mmol/L Carbon Dioxide 31 H (22-30) mmol/L BUN 37 H (7-17) mg/dL POC Glucose (mg/dL) (70-110) mg/dL Plasma Lactic Acid Marshall (0.7-2.0) mmol/L Calcium 7.0 L (8.4-10.2) mg/dL Lactate Dehydrogenase (313-618) U/L C-Reactive Protein (<1.0) mg/dL Total Protein 3.8 L (6.3-8.2) g/dL Albumin 1.8 L (3.5-5.0) g/dL Procalcitonin (0.02-0.09) ng/mL 01/23/22 01/23/22 01/23/22 Range/Units 06:39 10:59 10:59 WBC (3.8-10.6) k/uL RBC (3.80-5.40) m/uL Hgb (11.4-16.0) gm/dL Hct (34.0-46.0) % RDW (11.5-15.5) % Neutrophils # (1.3-7.7) k/uL Lymphocytes # (1.0-4.8) k/uL D-Dimer (<0.60) mg/L FEU Sodium (137-145) mmol/L Chloride (98-107) mmol/L Carbon Dioxide (22-30) mmol/L BUN (7-17) mg/dL POC Glucose (mg/dL) 112 H (70-110) mg/dL Plasma Lactic Acid Marshall (0.7-2.0) mmol/L Calcium (8.4-10.2) mg/dL Lactate Dehydrogenase 675 H (313-618) U/L C-Reactive Protein 19.8 H (<1.0) mg/dL Total Protein (6.3-8.2) g/dL Albumin (3.5-5.0) g/dL Procalcitonin 3.89 H (0.02-0.09) ng/mL 01/23/22 01/23/22 01/23/22 Range/Units 10:59 11:15 16:59 WBC (3.8-10.6) k/uL RBC (3.80-5.40) m/uL Hgb (11.4-16.0) gm/dL Hct (34.0-46.0) % RDW (11.5-15.5) % Neutrophils # (1.3-7.7) k/uL Lymphocytes # (1.0-4.8) k/uL D-Dimer 1.43 H (<0.60) mg/L FEU Sodium (137-145) mmol/L Chloride (98-107) mmol/L Carbon Dioxide (22-30) mmol/L BUN (7-17) mg/dL POC Glucose (mg/dL) 121 H 251 H (70-110) mg/dL Plasma Lactic Acid Marshall (0.7-2.0) mmol/L Calcium (8.4-10.2) mg/dL Lactate Dehydrogenase (313-618) U/L C-Reactive Protein (<1.0) mg/dL Total Protein (6.3-8.2) g/dL Albumin (3.5-5.0) g/dL Procalcitonin (0.02-0.09) ng/mL 01/23/22 Range/Units 17:13 WBC (3.8-10.6) k/uL RBC (3.80-5.40) m/uL Hgb (11.4-16.0) gm/dL Hct (34.0-46.0) % RDW (11.5-15.5) % Neutrophils # (1.3-7.7) k/uL Lymphocytes # (1.0-4.8) k/uL D-Dimer (<0.60) mg/L FEU Sodium (137-145) mmol/L Chloride (98-107) mmol/L Carbon Dioxide (22-30) mmol/L BUN (7-17) mg/dL POC Glucose (mg/dL) 256 H (70-110) mg/dL Plasma Lactic Acid Marshall (0.7-2.0) mmol/L Calcium (8.4-10.2) mg/dL Lactate Dehydrogenase (313-618) U/L C-Reactive Protein (<1.0) mg/dL Total Protein (6.3-8.2) g/dL Albumin (3.5-5.0) g/dL Procalcitonin (0.02-0.09) ng/mL Microbiology - Last 24 Hours (Table) 01/23/22 11:10 Urine Culture - Preliminary Urine,Clean Catch Assessment and Plan Plan: Acute hypoxic respiratory failure, improving patient transferred out of ICU. Acute coronary 19 pneumonia Underlying history of chronic obstructive pulmonary disease Sepsis as evidenced by leukocytosis, tachycardia, mild elevation in lactic acid and hypotension Elevated d-dimer Acute kidney injury possibly related to dehydration and prerenal azotemia, will monitor kidney function Underlying history of hypertension Underlying history of hypothyroidism Chronic tobacco use patient smokes up to 2 packs per day Persistent atrial fibrillation with controlled heart rate patient has been switched to oral anticoagulation with eliquis At this time patient is admitted to intensive care unit Pulmonary, vascular surgery, and cardiology consultation requested Patient started on IV antibiotics, IV a Remdesevir, IV steroids and inhaled bronchodilators Medication and labs reviewed will follow closely Prognosis is guarded due to severity of illness
[2022-01-23 18:20] LABS: Appearance,Urine Cloudy (Clear); Bacteria,Urine Rare /hpf; Bilirubin,Urine Negative (Negative); Blood,Urine Trace (Negative); Color,Urine Yellow; Glucose,Urine (UA) 2+ (Negative); Ketones,Urine Trace (Negative); Leukocyte Esterase,Urine Trace (Negative); Mucus,Urine Rare /hpf; Nitrite,Urine Negative (Negative); PH, Urine 5.5 (5.0-8.0); Protein,Urine Trace (Negative); RBC,Urine 7 /hpf (0-5); Specific Gravity,Urine 1.015 (1.001-1.035); Squamous Epithelial Cell,Urine 1 /hpf (0-4); Urobilinogen,Urine <2.0 mg/dL (<2.0); WBC,Urine 1 /hpf (0-5)
[2022-01-23 20:01] LABS: Glucose,Whole Blood 249 mg/dL (70-110)
[2022-01-23] MEDS: risperiDONE 2 MG TAB PO SCH (20:43)
[2022-01-23] MEDS ORDERED: VANCOMYCIN IV PER PHARMACY 1 EACH MISC MISCELLANE PRN (22:17)
[2022-01-23] MEDS ORDERED: VANCOMYCIN 1,250 MG in SODIUM CHLORIDE 0.9% 250 ML IVPB ONE (22:45)
[2022-01-24] MEDS: CEFEPIME 2 GM in SODIUM CHLORIDE 0.9% 100 ML IVPB SCH ×3 (00:56→15:39)
[2022-01-24 03:46] LABS: Anisocytosis Slight; Basophils % (A) 0 %; Eosinophils % (A) 0 %; HGB 8.6 gm/dL (11.4-16.0); Lymphocytes # (A) 0.9 k/uL (1.0-4.8); Lymphocytes % (A) 3 %; MCH 28.5 pg (25.0-35.0); MCHC 33.2 g/dL (31.0-37.0); MCV 85.8 fL (80.0-100.0); Mean Platelet Volume 8.4; Monocytes # (A) 0.6 k/uL (0-1.0); Monocytes % (A) 2 %; Neutrophils # (A) 25.8 k/uL (1.3-7.7); Neutrophils % (A) 94 %; Platelet Count 201 k/uL (150-450); RBC 3.03 m/uL (3.80-5.40); RDW 16.1 % (11.5-15.5); WBC 27.5 k/uL (3.8-10.6)
[2022-01-24 03:57] LABS: African American GFR (CKD) >90 (>60 ml/min/1.73 sqM); Anion Gap -1 mmol/L; Blood Urea Nitrogen 25 mg/dL (7-17); Calcium 7.1 mg/dL (8.4-10.2); Carbon Dioxide 28 mmol/L (22-30); Chloride 105 mmol/L (98-107); Glucose 128 mg/dL (74-99); Non-African American GFR(CKD) >90 (>60 ml/min/1.73 sqM); Potassium 3.6 mmol/L (3.5-5.1); Sodium 132 mmol/L (137-145)
[2022-01-24] MEDS: NOREPINEPHRINE 8 MG in SODIUM CHLORIDE 0.9% 250 ML IV SCH ×2 (04:07→16:35)
[2022-01-24] MEDS ORDERED: POTASSIUM CHLORIDE ER 20 MEQ TAB.ER PO SCH (05:00)
[2022-01-24 06:48] LABS: Glucose,Whole Blood 139 mg/dL (70-110)
[2022-01-24] MEDS: LEVOTHYROXINE 75 MCG TAB PO SCH (07:17)
[2022-01-24] MEDS: INSULIN ASPART (NovoLOG) 100 UNIT/ML VIAL SQ SCH ×4 (07:21→20:39)
--- NOTE | 2022-01-24 07:57 | P.PN ---
Subjective Progress Note Date: 01/24/22 This is a 76-year-old female who is not a great historian, her daughter is at bedside, patient is known to have history of hypothyroidism, COPD, history generalized anxiety disorder, patient has been weak for the last few days. According to the daughter, patient fell 4 days ago, and has been complaining of pain to her buttocks. Patient also had some intermittent cough, shortness of breath, and according to the daughter the patient has not been taking her medications including her thyroid medicine and her Combivent for COPD. Patient is a heavy smoker, she smoked 2 packs a day for many years. Does not use oxygen at home. Workup in the ER included a CBC which showed leukocytosis. Elevated d-dimer of 3.94. Abnormal renal profile with a BUN of 76 creatinine of 1.92 and low sodium of 129, elevated BNP level of 2580, normal troponin, and normal liver enzymes. Patient was also noted to have positive PCR for COVID-19, chest x-ray showed multifocal reticular markings and multifocal atypical infiltrates. Possible underlying pulmonary fibrosis. No old x-ray for comparison. Patient was also noted to be relatively hypotensive requiring fluid boluses with slight improvement of the blood pressure. On 01/23/2022, the patient is being seen for a follow-up. The patient got transferred to the intensive care unit overnight because of hypotension. The patient is currently in the intensive care unit. Noted the patient was in the ICU initially for hypoxic respiratory failure and the patient had high oxygen requirements and the patient was utilizing high flow oxygen at 55 L at one point . The patient gradually improved and the patient was transitioned to a telemetry unit where she was recovering. She is still requiring oxygen at 8 L per minute nasal cannula. Nevertheless, overnight, she became hypotensive and she required fluids and pressors. The patient was given a bolus of 1 L of normal saline. Currently she is on norepinephrine infusion which is running at 0.18 mcg/kg/m. Arterial line catheter was inserted for blood pressure monitoring. Meanwhile, sepsis workup was initiated and the patient developed a rise in a white cell count. The white cell count today is at 26.3. Based on that, cultures will be sent and the patient will be started on broad-spectrum antibiotics. Electrolytes are all within normal limits. Oxygenation remains stable and the patient denies having any worsening shortness of breath. She denies having any cough or sputum production. A repeat chest x-ray was done today and the patient was found to have evidence of some interstitial back up pulmonary infiltrates consistent with bilateral post Covid 19 infection/pneumonia versus edema. Noted the patient has a preserved LV function with an ejection fraction is essentially within normal limits and this is based on echocardiogram that was done on 01/09/2022 that showed a ejection fraction of 55% without any significant valvular abnormalities. The patient has no central lines. No denies vomiting or diarrhea or abdominal pain. No skin rashes. No altered mentation. No headaches. Ultrasound the gallbladder showed large gallstones in the neck of the gallbladder without evidence of any acute cholecystitis. 01/24/2022, the patient the patient is septic and the patient is still on pressors. She is afebrile. Nevertheless, her pro-calcitonin level was elevated and the level was at 3.89. At the same time, the patient had a possible culture with gram-positive cocci in pairs and chains. Vancomycin was added features are again IV cefepime. The white cell count remains elevated and the patient has a WBC count of 27.5. The patient is currently on norepinephrine which is running in the rate of 0.12 mcg/kg/m. The patient is also on IV fluids at 100 mL an hour of normal saline. The patient has a stage II sacral decub ulcer which does not look to be infected. The patient has some swelling over the right hip and the right hip joint is quite painful to passive range of motion. There is some erythema and warmth at the level of the right upper lateral thigh. As such, s eptic joint is also being suspected. Clinically, the patient is unchanged compared to yesterday. She remains on 8 L of oxygen by nasal cannula. The chest x-ray from today still showing bilateral pulmonary infiltrates and background COPD. No nausea. No vomiting. She has large gallstones without evidence of any cholecystitis. No altered mentation. Her appetite is weak. Her oral intake is quite diminished. She has a normal left ventricular ejection fraction. Objective - Vital Signs Vital signs: Vital Signs Temp 98.4 F 01/24/22 04:00 Pulse 81 01/24/22 07:00 Resp 22 01/24/22 07:00 BP 91/47 01/24/22 07:00 Pulse Ox 90 L 01/24/22 07:00 FiO2 60 01/13/22 16:00 Intake & Output 01/23/22 01/24/22 01/24/22 18:59 06:59 18:59 Intake Total 2728.654 1391.000 162.189 Output Total 1200 750 40 Balance 1528.654 641.000 122.189 Weight 80 kg Intake: IV 1200 1133 103 Sodium Chloride 0.9% 1, 1200 1100 100 000 ml @ 100 mls/hr IV . Q10H [facility] Rx#:[id number] pressure bag 33 3 Intake, IV Titration 568.654 258.000 59.189 Amount Cefepime 2 gm In Sodium 200 Chloride 0.9% 100 ml @ 25 mls/hr IVPB Q8HR [facility] Rx# :[id number] Norepinephrine 8 mg In 368.654 258.000 59.189 Sodium Chloride 0.9% 250 ml @ 0.03 MCG/KG/MIN 4. 203 mls/hr IV .Q24H [facility] Rx#:[id number] Oral 240 Blood Product 720 Output: Urine 1200 750 40 Other: Voiding Method External Catheter External Catheter ABP, PAP, CO, CI - Last Documented Arterial Blood Pressure 113/43 - Exam GENERAL EXAM: Alert, frail, 76-year-old female, on 8 L high flow nasal cannula, comfortable in no apparent distress. HEAD: Normocephalic. EYES: Normal reaction of pupils, equal size. NOSE: Clear with pink turbinates. THROAT: No erythema or exudates. NECK: No masses, no JVD. CHEST: No chest wall deformity. LUNGS: Equal air entry with crackles in the bilateral bases. CVS: S1 and S2 normal with no audible murmur, irregular rhythm. ABDOMEN: No hepatosplenomegaly, normal bowel sounds, no guarding or rigidity. SPINE: No scoliosis or deformity SKIN: No rashes. Ecchymosis of the lower lumbar sacral area due to previous fall CENTRAL NERVOUS SYSTEM: No focal deficits, tone is normal in all 4 extremities. EXTREMITIES: There is no peripheral edema. No clubbing, no cyanosis. Peripheral pulses are intact. He has swelling over the right hip joint extending to the anterior and lateral thigh along with some erythema and warmth. - Labs CBC & Chem 7: 01/24/22 03:29 01/24/22 03:29 Labs: Abnormal Lab Results - Last 24 Hours (Table) 01/23/22 01/23/22 01/23/22 Range/Units 10:59 10:59 10:59 WBC (3.8-10.6) k/uL RBC (3.80-5.40) m/uL Hgb (11.4-16.0) gm/dL Hct (34.0-46.0) % RDW (11.5-15.5) % Neutrophils # (1.3-7.7) k/uL Lymphocytes # (1.0-4.8) k/uL D-Dimer 1.43 H (<0.60) mg/L FEU Sodium (137-145) mmol/L BUN (7-17) mg/dL Creatinine (0.52-1.04) mg/dL Glucose (74-99) mg/dL POC Glucose (mg/dL) (70-110) mg/dL Calcium (8.4-10.2) mg/dL Lactate Dehydrogenase 675 H (313-618) U/L C-Reactive Protein 19.8 H (<1.0) mg/dL Procalcitonin 3.89 H (0.02-0.09) ng/mL Urine Appearance (Clear) Urine Protein (Negative) Urine Glucose (UA) (Negative) Urine Ketones (Negative) Urine Blood (Negative) Ur Leukocyte Esterase (Negative) Urine RBC (0-5) /hpf Urine Bacteria (None) /hpf Urine Mucus (None) /hpf 01/23/22 01/23/22 01/23/22 Range/Units 11:15 16:59 17:13 WBC (3.8-10.6) k/uL RBC (3.80-5.40) m/uL Hgb (11.4-16.0) gm/dL Hct (34.0-46.0) % RDW (11.5-15.5) % Neutrophils # (1.3-7.7) k/uL Lymphocytes # (1.0-4.8) k/uL D-Dimer (<0.60) mg/L FEU Sodium (137-145) mmol/L BUN (7-17) mg/dL Creatinine (0.52-1.04) mg/dL Glucose (74-99) mg/dL POC Glucose (mg/dL) 121 H 251 H 256 H (70-110) mg/dL Calcium (8.4-10.2) mg/dL Lactate Dehydrogenase (313-618) U/L C-Reactive Protein (<1.0) mg/dL Procalcitonin (0.02-0.09) ng/mL Urine Appearance (Clear) Urine Protein (Negative) Urine Glucose (UA) (Negative) Urine Ketones (Negative) Urine Blood (Negative) Ur Leukocyte Esterase (Negative) Urine RBC (0-5) /hpf Urine Bacteria (None) /hpf Urine Mucus (None) /hpf 01/23/22 01/23/22 01/24/22 Range/Units 18:00 19:59 03:29 WBC 27.5 H (3.8-10.6) k/uL RBC 3.03 L (3.80-5.40) m/uL Hgb 8.6 L (11.4-16.0) gm/dL Hct 26.0 L (34.0-46.0) % RDW 16.1 H (11.5-15.5) % Neutrophils # 25.8 H (1.3-7.7) k/uL Lymphocytes # 0.9 L (1.0-4.8) k/uL D-Dimer (<0.60) mg/L FEU Sodium (137-145) mmol/L BUN (7-17) mg/dL Creatinine (0.52-1.04) mg/dL Glucose (74-99) mg/dL POC Glucose (mg/dL) 249 H (70-110) mg/dL Calcium (8.4-10.2) mg/dL Lactate Dehydrogenase (313-618) U/L C-Reactive Protein (<1.0) mg/dL Procalcitonin (0.02-0.09) ng/mL Urine Appearance Cloudy H (Clear) Urine Protein Trace H (Negative) Urine Glucose (UA) 2+ H (Negative) Urine Ketones Trace H (Negative) Urine Blood Trace H (Negative) Ur Leukocyte Esterase Trace H (Negative) Urine RBC 7 H (0-5) /hpf Urine Bacteria Rare H (None) /hpf Urine Mucus Rare H (None) /hpf 01/24/22 01/24/22 Range/Units 03:29 06:46 WBC (3.8-10.6) k/uL RBC (3.80-5.40) m/uL Hgb (11.4-16.0) gm/dL Hct (34.0-46.0) % RDW (11.5-15.5) % Neutrophils # (1.3-7.7) k/uL Lymphocytes # (1.0-4.8) k/uL D-Dimer (<0.60) mg/L FEU Sodium 132 L (137-145) mmol/L BUN 25 H (7-17) mg/dL Creatinine 0.45 L (0.52-1.04) mg/dL Glucose 128 H (74-99) mg/dL POC Glucose (mg/dL) 139 H (70-110) mg/dL Calcium 7.1 L (8.4-10.2) mg/dL Lactate Dehydrogenase (313-618) U/L C-Reactive Protein (<1.0) mg/dL Procalcitonin (0.02-0.09) ng/mL Urine Appearance (Clear) Urine Protein (Negative) Urine Glucose (UA) (Negative) Urine Ketones (Negative) Urine Blood (Negative) Ur Leukocyte Esterase (Negative) Urine RBC (0-5) /hpf Urine Bacteria (None) /hpf Urine Mucus (None) /hpf Microbiology - Last 24 Hours (Table) 01/23/22 10:59 Blood Culture Gram Stain - Preliminary Blood 01/23/22 10:59 Blood Culture - Final Blood 01/23/22 11:10 Urine Culture - Preliminary Urine,Clean Catch Assessment and Plan Plan: Acute hypoxic respiratory failure secondary to a pulmonary fibrosis addition to a Covid 19 pneumonia. Patient could've also had a pulmonary embolism based on CT of the chest as well as done on 01/18/2022. The patient was requiring high amount of oxygen initially BiPAP and later on high flow oxygen and currently is down to 8 L O2 nasal cannula. She does have underlying chronic lung disease. The patient's oxygen requirements have not changed over the past 48 hours and she remains on 8 L of oxygen by nasal cannula Acute sepsis with gram-positive cocci in chains and pairs. Rule out strep/staph. Rule out enterococcus. Rule out possibility of septic right hip joint. Rule out possibility of a right thigh abscess. Patient is currently on a combination of cefepime and vancomycin. The patient remains on pressors requiring norepinephrine at a dose of 0.12 mcg/kg/m and the patient is also on normal saline. Pulmonary fibrosis and chronic hypoxic respiratory failure Severe pulmonary hypertension with RV systolic pressure of 74, questionable RV thrombus Acute Hypotension, secondary to sepsis/septic shock. It is currently on that investigation. The patient got transferred to the ICU because of acute hypotension and acute leukocytosis. The patient is currently on pressors and the patient on norepinephrine infusion and sepsis workup is in progress. Gallstones without evidence of any cholecystitis Normal left ventricular ejection fraction without evidence of any heart failure COPD History of chronic smoking History of hypothyroidism. History of generalized anxiety disorder . Acute dehydration, resolved. Acute kidney injury, recovered Paroxysmal atrial fibrillation DNR/DNI Plan Awaiting further cultures and sensitivities Pro calcitonin level is elevated Continue cefepime and vancomycin Obtain CAT scan of the right hip, consider possibility of a septic joint or r ight thigh abscess Continue normal saline at rate of 100 mL an hour This is a triple-lumen catheter Wean off pressors and the patient is currently on norepinephrine infusion Arterial line catheter was inserted for blood pressure monitoring Check inflammatory markers focal ongoing Covid 19 Start the patient on Antibiotic coverage with IV cefepime Chest x-ray was noted Wean down FiO2 as tolerated currently she is down to 8 L hold diuretics Continue the prednisone burst taper We'll continue to follow Patient will be kept in intensive care unit for now
[2022-01-24] MEDS: SODIUM CHLORIDE 0.9% 1,000 ML IV SCH ×2 (08:18→16:35)
[2022-01-24] MEDS: CHOLECALCIFEROL 25 MCG (1000 IU) TABLET PO SCH (08:58)
[2022-01-24] MEDS: predniSONE 20 MG TAB PO SCH (08:58)
[2022-01-24] MEDS: PANTOPRAZOLE 40 MG/10 ML VIAL IV SCH (08:58)
[2022-01-24] MEDS: ZINC SULFATE 220 MG CAP PO SCH (08:58)
[2022-01-24] MEDS: ASCORBIC ACID 500 MG TAB PO SCH ×2 (08:58→20:39)
[2022-01-24] MEDS: APIXABAN 5 MG TAB PO SCH ×2 (08:58→20:39)
[2022-01-24] MEDS: CITALOPRAM HYDROBROMIDE 10 MG TAB PO SCH (08:58)
[2022-01-24] MEDS ORDERED: VANCOMYCIN 1,250 MG in SODIUM CHLORIDE 0.9% 250 ML IVPB SCH (09:00)
--- NOTE | 2022-01-24 09:04 | XR ---
EXAMINATION TYPE: XR chest 1V portable DATE OF EXAM: 01/24/2022 COMPARISON: NONE HISTORY: Line placement TECHNIQUE: Single frontal view of the chest is obtained. FINDINGS: Left-sided central line seen with tip overlying the SVC and no sizable pneumothorax. Diffu se emphysematous changes are seen and there is bilateral infiltrate and small effusion. Heart size no rmal. Atherosclerotic change aorta. IMPRESSION: 1. Central line appears in good position with no sizable thorax. 2. COPD correlate for CHF or diffuse pneumonia.
[2022-01-24] MEDS ORDERED: IPRATROPIUM-ALBUTEROL 3 ML NEB INHALATION PRN (09:14)
--- NOTE | 2022-01-24 09:24 | XR ---
EXAMINATION TYPE: XR chest 1V portable DATE OF EXAM: 01/24/2022 COMPARISON: 01/23/2022 HISTORY: Shortness of breath TECHNIQUE: Single frontal view of the chest is obtained. FINDINGS: Diffuse interstitial changes are seen with bilateral infiltrate and small effusion. Heart size normal. No pneumothorax. Atherosclerotic change of the aorta. IMPRESSION: 1. Diffuse pleural parenchymal changes most typical of CHF correlate clinically.
[2022-01-24] MEDS: SYMBICORT 160-4.5 MCG INHALER INHALATION SCH ×2 (09:29→21:27)
[2022-01-24] MEDS: IPRATROPIUM-ALBUTEROL 3 ML NEB INHALATION SCH ×4 (09:29→21:27)
[2022-01-24] MEDS: ALBUTEROL HFA INHALER INHALATION SCH (09:47)
[2022-01-24] MEDS: TIOTROPIUM 2.5 MCG INHALER INHALATION SCH (09:47)
[2022-01-24 11:39] LABS: Glucose,Whole Blood 161 mg/dL (70-110)
--- NOTE | 2022-01-24 13:01 | CT ---
EXAMINATION TYPE: CT hip RT w con CT DLP: 810.2 mGycm, Automated exposure control for dose reduction was used. DATE OF EXAM: 01/24/2022 12:34 PM COMPARISON: None CLINICAL INDICATION:Female, 77 years old with history of r/o septic hip; , RIGHT HIP PAIN TECHNIQUE: Axial images were obtained of the right hip . Additional coronal and sagittal reformatted images and soft tissue and bone window were obtained for review. 3-D reconstruction was created on a separate workstation. Contrast used:100 mL of Isovue 300 with IV Contrast, Oral contrast used: None FINDINGS: The right hip demonstrates no evidence of joint effusion or osseous erosion. There is diffu se anasarca throughout the soft tissues with skin thickening. Diffuse osseous demineralization which limits evaluation for fracture. The osseous structures appear intact. No evidence of fracture. There is degeneration changes of the right hip with osteophyte formation. Sacroiliac joint degeneration wit h osteophytes as well as lower spine degeneration changes are present. There is a large stool burden within the rectum with fecaloma measuring up to 9.5 cm in transverse di mension. Scattered clonic diverticula are present. There is Wren catheter with tip in appropriate po sition. IMPRESSION: 1. No evidence for joint effusion or osseous erosion. 2. No evidence of fracture. If there remains concern for fracture consider MRI. 3. There is moderate degeneration changes of the right hip. 4. Large stool burden in the rectum.
--- NOTE | 2022-01-24 13:10 | P.PN ---
Subjective Progress Note Date: 01/24/22 Samantha Brown, is a 76-year-old female who presented to [facility] emergency room with a chief complaint of generalized weakness, patient's daughter reported in the emergency room that her mother had a fall 4 days prior to presentation She was evaluated in the emergency room vital examination on presentation revealed Laboratory data revealed a white blood count of 14.4 hemoglobin 12.2 platelet count 476 INR 1.2 d-dimer 3.94 sodium 129 potassium 5.1 chloride 99 CO2 23 BUN 76 creatinine 1.92 lactic acid 1.7 Corps on a virus PCR was positive Testing in the emergency room revealed chest x-ray done in emergency room revealed small bilateral pleural effusions and multifocal areas of increased reticular markings, EKG revealed atrial fibrillation with a heart rate of 86 Patient was admitted to medical floor for further evaluation and treatment. Past medical history is significant for history of hypertension, history of hyperlipidemia, history of hypothyroidism, and history of tobacco use patient smokes 2 packs per day On 01/08/2022 patient was seen and examined in the ICU she is alert responsive in mild distress due to shortness of breath, she was started on BiPAP during the night, she is maintained on norepinephrine for pressure support, she is also maintained on IV antibiotic Zosyn, input from cardiology and pulmonary review, patient's daughter Pily contacted over the phone and all questions answered to her satisfaction. On 01/09/2022 patient remains in the intensive care unit slightly improved. Patient remains on BiPAP. Creatinine improving to 1.41 bun 63. Patient remains on IV heparin. Patient also remains on sodium bicarb current vital signs heart rate 88, respiratory rate 19, blood pressure 108/51 patient satting 93% on BiPAP 40% FiO2. On 01/10/2022 patient was seen and examined in the ICU she is alert responsive in no apparent distress she is maintained on BiPAP, she is stating that her shortness of breath is improving she denies any chest pain there is no nausea or vomiting no abdominal pain no diarrhea and no urinary symptoms, however white blood count is 11 hemoglobin 10.8, BUN 60 creatinine 1.12 On 01/11/2022 patient was seen and examined in the ICU she is alert responsive in no apparent distress BiPAP was discontinued and patient was started on Airvo high flow oxygen she is still maintained on levophed for pressure support and this is being weaned down gradually. White blood count is down today to 7.5 BUN down to 45 creatinine 0.83 patient denies any chest pain or shortness of breath is improving, she is receiving IV antibiotic Zosyn she is also receiving Remdesevir for Covid-19 On 01/12/22, patient was seen and examined in the ICU, she is alert and oriented x 3, patient remains on airvo 55% FiO2, chest x-ray is showing some worsening today with interstitial infiltrates, possible interstitial edema. She remains on Decadron, she is also on eliquis, and she is on Zosyn. patient is still requiring norepinephrine On 01/13/2022 patient remains in the intensive care unit. Patient did require higher levels of irritable last night per nursing staff but is back down to 55%. Steroids were increased per pulmonary and critical care. Current vital signs temp 98.6, heart rate 75, respiratory rate 23, blood pressure 107/71 patient currently on 60% airflow satting 98% On 01/14/2022 patient was seen and examined in the ICU she is alert and oriented 3 in no apparent distress she is still maintained on high flow oxygen there is no fever or chills no headache or dizziness no chest pain she has occasional cough no nausea or vomiting no abdominal pain no diarrhea no blood in the stools, no urinary symptoms Wren catheter is in. On 01/15/2022 patient was seen and examined in the ICU she is alert and responsive in no apparent distress she is maintained on high flow oxygen at 15 L/m via nasal cannula there is no fever or chills no headache or dizziness no chest pain she has shortness of breath with any activity and occasional cough no nausea or vomiting no abdominal pain no diarrhea and no urinary symptoms is ma intained on IV Zosyn inhaled bronchodilators, inhaled steroids, and Eliquis, she is off pressure support at this time On 01/16/2022 patient remains in the intensive care unit. Patient remains on high flow 15 L. Patient remains off pressure support medication at this time. Current vital signs temp 97.7 heart rate 57, respiratory rate 17, blood pressure 100/62 sitting 90% on 15 L. On 01/17/2022 patient was seen and examined in the ICU, she is alert and oriented 3 in no apparent distress, she is still maintained on high flow oxygen at 15 L/m, she denies any chest pain, there is no fever or chills no headache or dizziness she has occasional cough no nausea or vomiting no abdominal pain no diarrhea and no urinary symptoms. Patient has poor oral intake, I was contacted today by the dietitian who recommended tube feeding due to patient consuming less then 25% of her meals, tube feeding was discussed in details with patient and at this time she is refusing, she stated that she will work on eating more of her meals. Nutrition supplements will be admitted On 01/18/2022 patient was seen and examined in the ICU, she is alert and oriented 3. Patient is weaning down in oxygen demand patient currently on high flow nasal cannula 10 L. Current vital signs temp 97.4, heart rate 78, res piratory rate 14, blood pressure 98/51. On 01/19/2022 patient was seen and examined on the telemetry floor she is alert and oriented in no apparent distress, she is sitting up in a chair, she is main tained on oxygen at 10 L via high flow nasal cannula, she is denying any complaints at this time there is no fever or chills no headache or dizziness no chest pain no shortness of breath at rest no cough no nausea or vomiting no abdominal pain no diarrhea no blood in the stools no burning with urination no frequency or urgency and no hematuria. She is still having severe weakness and is only able to pivot from her bed to her chair, physical therapy and occupational therapy are consulted, patient was encouraged to increase her oral intake. On 01/20/2022 patient was seen and examined on the medical floor she is alert and oriented 3 in no apparent distress she is still maintained on oxygen at 8 L via nasal cannula, she is feeling better, there is no fever or chills no headache or dizziness no chest pain no shortness of breath at rest she has occasional cough no nausea or vomiting no abdominal pain no diarrhea no blood in the stools no burning with urination no frequency or urgency and no hematuria, physical therapy and occupational therapy are consulted, patient was encouraged to increase her oral intake. On 01/21/2022 patient was seen and examined on the medical floor she is alert and oriented 3 in no distress she is still complaining of shortness of breath with any activity she is maintained on oxygen at 8 L via nasal cannula otherwise she denies any complaints there is no fever or chills no headache or dizziness no chest pain, she has occasional cough no nausea or vomiting no abdominal pain no diarrhea and no urinary symptoms. Patient was seen by physical therapy and occupational therapy she remains very weak a consultation for Dr. Art was initiated for possible rehab admission. On 01/22/2022 patient was seen and examined on the medical floor she is alert and oriented 3 in no distress there is no fever or chills no headache or dizziness no chest pain no cough no nausea or vomiting no abdominal pain no diarrhea and no urinary symptoms she is still complaining of shortness of breath and generalized weakness she is still requiring 8 L of oxygen per minutes, oxygen is being weaned down gradually she would be transferred to care home in the next 1-2 days for rehab On 01/23/2022 patient was seen and examined in the ICU last night patient had low blood pressure she was given 2 boluses of normal saline 500 mL, however her blood pressure continued to decline and was down to 75/38 patient was transferred to intensive care unit and was started on IV levophed she was evaluated this morning by critical care and was started on IV cefepime. Currently she is stable in ICU she denies any complaints. On 01/24/2022 patient was seen and examined in the ICU she is alert and oriented 3 in no apparent distress she is answering questions appropriately she denies any complaints at this time yesterday she was transferred to ICU due to hypotension, today she is feeling better she is still maintained on levophed she is also maintained on IV antibiotics cefepime Objective - Vital Signs Vital signs: Vital Signs Temp 98.4 F 01/24/22 04:00 Pulse 85 01/24/22 09:39 Resp 22 01/24/22 07:00 BP 91/47 01/24/22 07:00 Pulse Ox 90 L 01/24/22 07:00 FiO2 60 01/13/22 16:00 Intake & Output 01/23/22 01/24/22 01/24/22 18:59 06:59 18:59 Intake Total 2728.654 1391.000 162.189 Output Total 1200 750 40 Balance 1528.654 641.000 122.189 Weight 80 kg Intake: IV 1200 1133 103 Sodium Chloride 0.9% 1, 1200 1100 100 000 ml @ 100 mls/hr IV . Q10H [facility] Rx#:[id number] pressure bag 33 3 Intake, IV Titration 568.654 258.000 59.189 Amount Cefepime 2 gm In Sodium 200 Chloride 0.9% 100 ml @ 25 mls/hr IVPB Q8HR [facility] Rx# :[id number] Norepinephrine 8 mg In 368.654 258.000 59.189 Sodium Chloride 0.9% 250 ml @ 0.03 MCG/KG/MIN 4. 203 mls/hr IV .Q24H [facility] Rx#:[id number] Oral 240 Blood Product 720 Output: Urine 1200 750 40 Other: Voiding Method External Catheter External Catheter ABP, PAP, CO, CI - Last Documented Arterial Blood Pressure 113/43 - Exam In general patient is alert responsive maintained on on oxygen via high flow nasal cannula HEENT head normocephalic and atraumatic Neck is supple no JVD no goiter no lymphadenopathy no carotid bruit Chest examination reveals a scattered crackles bilaterally with mild wheezing Cardiac exam reveals regular heart sounds S1 and S2 no gallops no murmurs Abdomen is soft nontender no organomegaly with normal bowel sounds Extremity exam reveals no edema no cyanosis or clubbing, poor pulses peripherally Neurological examination reveals no gross focal deficits - Labs CBC & Chem 7: 01/24/22 03:29 01/24/22 03:29 Labs: Abnormal Lab Results - Last 24 Hours (Table) 01/23/22 01/23/22 01/23/22 Range/Units 10:59 10:59 10:59 WBC (3.8-10.6) k/uL RBC (3.80-5.40) m/uL Hgb (11.4-16.0) gm/dL Hct (34.0-46.0) % RDW (11.5-15.5) % Neutrophils # (1.3-7.7) k/uL Lymphocytes # (1.0-4.8) k/uL D-Dimer 1.43 H (<0.60) mg/L FEU Sodium (137-145) mmol/L BUN (7-17) mg/dL Creatinine (0.52-1.04) mg/dL Glucose (74-99) mg/dL POC Glucose (mg/dL) (70-110) mg/dL Calcium (8.4-10.2) mg/dL Lactate Dehydrogenase 675 H (313-618) U/L C-Reactive Protein 19.8 H (<1.0) mg/dL Procalcitonin 3.89 H (0.02-0.09) ng/mL Urine Appearance (Clear) Urine Protein (Negative) Urine Glucose (UA) (Negative) Urine Ketones (Negative) Urine Blood (Negative) Ur Leukocyte Esterase (Negative) Urine RBC (0-5) /hpf Urine Bacteria (None) /hpf Urine Mucus (None) /hpf 01/23/22 01/23/22 01/23/22 Range/Units 11:15 16:59 17:13 WBC (3.8-10.6) k/uL RBC (3.80-5.40) m/uL Hgb (11.4-16.0) gm/dL Hct (34.0-46.0) % RDW (11.5-15.5) % Neutrophils # (1.3-7.7) k/uL Lymphocytes # (1.0-4.8) k/uL D-Dimer (<0.60) mg/L FEU Sodium (137-145) mmol/L BUN (7-17) mg/dL Creatinine (0.52-1.04) mg/dL Glucose (74-99) mg/dL POC Glucose (mg/dL) 121 H 251 H 256 H (70-110) mg/dL Calcium (8.4-10.2) mg/dL Lactate Dehydrogenase (313-618) U/L C-Reactive Protein (<1.0) mg/dL Procalcitonin (0.02-0.09) ng/mL Urine Appearance (Clear) Urine Protein (Negative) Urine Glucose (UA) (Negative) Urine Ketones (Negative) Urine Blood (Negative) Ur Leukocyte Esterase (Negative) Urine RBC (0-5) /hpf Urine Bacteria (None) /hpf Urine Mucus (None) /hpf 01/23/22 01/23/22 01/24/22 Range/Units 18:00 19:59 03:29 WBC 27.5 H (3.8-10.6) k/uL RBC 3.03 L (3.80-5.40) m/uL Hgb 8.6 L (11.4-16.0) gm/dL Hct 26.0 L (34.0-46.0) % RDW 16.1 H (11.5-15.5) % Neutrophils # 25.8 H (1.3-7.7) k/uL Lymphocytes # 0.9 L (1.0-4.8) k/uL D-Dimer (<0.60) mg/L FEU Sodium (137-145) mmol/L BUN (7-17) mg/dL Creatinine (0.52-1.04) mg/dL Glucose (74-99) mg/dL POC Glucose (mg/dL) 249 H (70-110) mg/dL Calcium (8.4-10.2) mg/dL Lactate Dehydrogenase (313-618) U/L C-Reactive Protein (<1.0) mg/dL Procalcitonin (0.02-0.09) ng/mL Urine Appearance Cloudy H (Clear) Urine Protein Trace H (Negative) Urine Glucose (UA) 2+ H (Negative) Urine Ketones Trace H (Negative) Urine Blood Trace H (Negative) Ur Leukocyte Esterase Trace H (Negative) Urine RBC 7 H (0-5) /hpf Urine Bacteria Rare H (None) /hpf Urine Mucus Rare H (None) /hpf 01/24/22 01/24/22 Range/Units 03:29 06:46 WBC (3.8-10.6) k/uL RBC (3.80-5.40) m/uL Hgb (11.4-16.0) gm/dL Hct (34.0-46.0) % RDW (11.5-15.5) % Neutrophils # (1.3-7.7) k/uL Lymphocytes # (1.0-4.8) k/uL D-Dimer (<0.60) mg/L FEU Sodium 132 L (137-145) mmol/L BUN 25 H (7-17) mg/dL Creatinine 0.45 L (0.52-1.04) mg/dL Glucose 128 H (74-99) mg/dL POC Glucose (mg/dL) 139 H (70-110) mg/dL Calcium 7.1 L (8.4-10.2) mg/dL Lactate Dehydrogenase (313-618) U/L C-Reactive Protein (<1.0) mg/dL Procalcitonin (0.02-0.09) ng/mL Urine Appearance (Clear) Urine Protein (Negative) Urine Glucose (UA) (Negative) Urine Ketones (Negative) Urine Blood (Negative) Ur Leukocyte Esterase (Negative) Urine RBC (0-5) /hpf Urine Bacteria (None) /hpf Urine Mucus (None) /hpf Microbiology - Last 24 Hours (Table) 01/23/22 10:59 Blood Culture Gram Stain - Preliminary Blood Blood Culture - Preliminary Strep agalactiae - (group b) 01/23/22 10:59 Blood Culture - Final Blood 01/23/22 11:10 Urine Culture - Preliminary Urine,Clean Catch Assessment and Plan Plan: Acute hypoxic respiratory failure, improving patient transferred out of ICU. Acute coronary 19 pneumonia Underlying history of chronic obstructive pulmonary disease Sepsis as evidenced by leukocytosis, tachycardia, mild elevation in lactic acid and hypotension Elevated d-dimer Acute kidney injury possibly related to dehydration and prerenal azotemia, will monitor kidney function Underlying history of hypertension Underlying history of hypothyroidism Chronic tobacco use patient smokes up to 2 packs per day Persistent atrial fibrillation with controlled heart rate patient has been switched to oral anticoagulation with eliquis At this time patient is admitted to intensive care unit Pulmonary, vascular surgery, and cardiology consultation requested Patient started on IV antibiotics, IV a Remdesevir, IV steroids and inhaled bronchodilators Medication and labs reviewed will follow closely Prognosis is guarded due to severity of illness
[2022-01-24] MEDS ORDERED: MAGNESIUM HYDROXIDE 2,400 MG/10 ML CUP PO PRN (14:23)
[2022-01-24 15:02] VITALS: BMI 25.2
[2022-01-24] MEDS: ACETAMINOPHEN TAB 325 MG TAB PO PRN (15:39)
--- NOTE | 2022-01-24 15:47 | P.PN ---
Subjective Progress Note Date: 01/24/22 Principal diagnosis: Sacral wound Patient is a 76-year old female with multiple comorbidities including COPD current 2 pack smoker hypothyroidism presented to the hospital with weakness patient also have a fall landed on her gluteal area and has developed a deep tissue injury to the sacral area and tested positive for COVID-19. On today's evaluation that is 01/24/2022 the patient is afebrile, patient is hemodynamically stable and is feeling slightly better breathing comfortably no chest pain or worsening of abdominal pain which was noticed to have some erythema and swelling to the right hip area and this patient with a recent fall for the patient did have a CT of the right hip patient blood culture also came back positive with gram-positive cocci finalize a strep Objective - Vital Signs Vital signs: Vital Signs Temp 99.3 F 01/24/22 08:00 Pulse 86 01/24/22 13:30 Resp 19 01/24/22 13:30 BP 96/59 01/24/22 13:30 Pulse Ox 92 L 01/24/22 13:30 FiO2 60 01/13/22 16:00 Intake & Output 01/23/22 01/24/22 01/24/22 18:59 06:59 18:59 Intake Total 2728.654 0548.144 9307.189 Output Total 1200 750 550 Balance 1528.654 641.000 580.189 Weight 80 kg Intake: IV 1200 1133 1071 Cefepime 2 gm In Sodium 100 Chloride 0.9% 100 ml @ 25 mls/hr IVPB Q8HR [facility] Rx# :[id number] Sodium Chloride 0.9% 1, 1200 1100 700 000 ml @ 100 mls/hr IV . Q10H [facility] Rx#:[id number] Vancomycin 1,250 mg In 250 Sodium Chloride 0.9% 250 ml @ 125 mls/hr IVPB Q12H [facility] Rx#:[id number] pressure bag 33 21 Intake, IV Titration 568.654 258.000 59.189 Amount Cefepime 2 gm In Sodium 200 Chloride 0.9% 100 ml @ 25 mls/hr IVPB Q8HR [facility] Rx# :[id number] Norepinephrine 8 mg In 368.654 258.000 59.189 Sodium Chloride 0.9% 250 ml @ 0.03 MCG/KG/MIN 4. 203 mls/hr IV .Q24H [facility] Rx#:[id number] Oral 240 Blood Product 720 Output: Urine 1200 750 550 Other: Voiding Method External Catheter External Catheter Indwelling Catheter ABP, PAP, CO, CI - Last Documented Arterial Blood Pressure 118/49 - Exam GENERAL DESCRIPTION: An elderly female lying in bed in no distress RESPIRATORY SYSTEM: Unlabored breathing , decreased breath sounds at bases HEART: S1 S2 regular rate and rhythm , ABDOMEN: Soft , no tenderness EXTREMITIES: Right hip area did have swelling and minimal erythema but no open wound or any drainage Sacral pressure ulcer is currently dressed - Labs CBC & Chem 7: 01/24/22 03:29 01/24/22 03:29 Labs: Abnormal Lab Results - Last 24 Hours (Table) 01/23/22 01/23/22 01/23/22 Range/Units 10:59 16:59 17:13 WBC (3.8-10.6) k/uL RBC (3.80-5.40) m/uL Hgb (11.4-16.0) gm/dL Hct (34.0-46.0) % RDW (11.5-15.5) % Neutrophils # (1.3-7.7) k/uL Lymphocytes # (1.0-4.8) k/uL Sodium (137-145) mmol/L BUN (7-17) mg/dL Creatinine (0.52-1.04) mg/dL Glucose (74-99) mg/dL POC Glucose (mg/dL) 251 H 256 H (70-110) mg/dL Calcium (8.4-10.2) mg/dL Procalcitonin 3.89 H (0.02-0.09) ng/mL Urine Appearance (Clear) Urine Protein (Negative) Urine Glucose (UA) (Negative) Urine Ketones (Negative) Urine Blood (Negative) Ur Leukocyte Esterase (Negative) Urine RBC (0-5) /hpf Urine Bacteria (None) /hpf Urine Mucus (None) /hpf 01/23/22 01/23/22 01/24/22 Range/Units 18:00 19:59 03:29 WBC 27.5 H (3.8-10.6) k/uL RBC 3.03 L (3.80-5.40) m/uL Hgb 8.6 L (11.4-16.0) gm/dL Hct 26.0 L (34.0-46.0) % RDW 16.1 H (11.5-15.5) % Neutrophils # 25.8 H (1.3-7.7) k/uL Lymphocytes # 0.9 L (1.0-4.8) k/uL Sodium (137-145) mmol/L BUN (7-17) mg/dL Creatinine (0.52-1.04) mg/dL Glucose (74-99) mg/dL POC Glucose (mg/dL) 249 H (70-110) mg/dL Calcium (8.4-10.2) mg/dL Procalcitonin (0.02-0.09) ng/mL Urine Appearance Cloudy H (Clear) Urine Protein Trace H (Negative) Urine Glucose (UA) 2+ H (Negative) Urine Ketones Trace H (Negative) Urine Blood Trace H (Negative) Ur Leukocyte Esterase Trace H (Negative) Urine RBC 7 H (0-5) /hpf Urine Bacteria Rare H (None) /hpf Urine Mucus Rare H (None) /hpf 01/24/22 01/24/22 01/24/22 Range/Units 03:29 06:46 11:37 WBC (3.8-10.6) k/uL RBC (3.80-5.40) m/uL Hgb (11.4-16.0) gm/dL Hct (34.0-46.0) % RDW (11.5-15.5) % Neutrophils # (1.3-7.7) k/uL Lymphocytes # (1.0-4.8) k/uL Sodium 132 L (137-145) mmol/L BUN 25 H (7-17) mg/dL Creatinine 0.45 L (0.52-1.04) mg/dL Glucose 128 H (74-99) mg/dL POC Glucose (mg/dL) 139 H 161 H (70-110) mg/dL Calcium 7.1 L (8.4-10.2) mg/dL Procalcitonin (0.02-0.09) ng/mL Urine Appearance (Clear) Urine Protein (Negative) Urine Glucose (UA) (Negative) Urine Ketones (Negative) Urine Blood (Negative) Ur Leukocyte Esterase (Negative) Urine RBC (0-5) /hpf Urine Bacteria (None) /hpf Urine Mucus (None) /hpf Microbiology - Last 24 Hours (Table) 01/23/22 11:10 Urine Culture - Preliminary Urine,Clean Catch Gram Neg Bacilli 01/23/22 10:59 Blood Culture Gram Stain - Preliminary Blood Blood Culture - Preliminary Strep agalactiae - (group b) 01/23/22 10:59 Blood Culture - Final Blood Assessment and Plan (1) Pressure ulcer of sacral region, stage 2 Current Visit: Yes Status: Acute Code(s): L89.152 - PRESSURE ULCER OF SACRAL REGION, STAGE 2 SNOMED Code(s): 66738949730262 Plan: 1patient with leukocytosis and hypotension requiring transfer to the ICU, chest x-ray has been mostly pulmonary edemain change, patient did have elevated white count and blood culture now showing Streptococcus agalactiae which usually of skin and soft tissue origin patient did have some swelling and erythema to the right hip with no evidence of any fracture or abscess patient to continue with the cefepime we will discontinue the vancomycin urine is also showing gram- negative and cultures will be followed Time with Patient: Less than 30
[2022-01-24 16:43] LABS: Glucose,Whole Blood 210 mg/dL (70-110)
[2022-01-24 20:37] LABS: Glucose,Whole Blood 199 mg/dL (70-110)
[2022-01-24] MEDS: risperiDONE 2 MG TAB PO SCH (20:39)
[2022-01-25] MEDS: CEFEPIME 2 GM in SODIUM CHLORIDE 0.9% 100 ML IVPB SCH ×3 (00:10→15:27)
[2022-01-25] MEDS: SODIUM CHLORIDE 0.9% 1,000 ML IV SCH ×2 (05:31→14:37)
[2022-01-25] MEDS: LEVOTHYROXINE 88 MCG TAB PO SCH (06:03)
[2022-01-25 06:05] LABS: Anisocytosis Slight; Basophils % (A) 0 %; Eosinophils # (A) 0.1 k/uL (0-0.7); Eosinophils % (A) 1 %; HCT 25.3 % (34.0-46.0); HGB 8.4 gm/dL (11.4-16.0); Hypochromasia Slight; Lymphocytes % (A) 5 %; MCH 28.8 pg (25.0-35.0); MCHC 33.3 g/dL (31.0-37.0); MCV 86.2 fL (80.0-100.0); Mean Platelet Volume 8.2; Monocytes # (A) 0.4 k/uL (0-1.0); Monocytes % (A) 2 %; Neutrophils # (A) 18.5 k/uL (1.3-7.7); Neutrophils % (A) 92 %; Platelet Count 165 k/uL (150-450); RBC 2.94 m/uL (3.80-5.40); RDW 16.3 % (11.5-15.5); WBC 20.2 k/uL (3.8-10.6)
[2022-01-25 06:15] LABS: ALT 13 U/L (4-34); AST 12 U/L (14-36); African American GFR (CKD) >90 (>60 ml/min/1.73 sqM); Albumin 1.7 g/dL (3.5-5.0); Alkaline Phosphatase 85 U/L (38-126); Anion Gap 1 mmol/L; Blood Urea Nitrogen 18 mg/dL (7-17); Calcium 6.9 mg/dL (8.4-10.2); Carbon Dioxide 27 mmol/L (22-30); Chloride 106 mmol/L (98-107); Glucose 91 mg/dL (74-99); Non-African American GFR(CKD) >90 (>60 ml/min/1.73 sqM); Potassium 3.6 mmol/L (3.5-5.1); Sodium 134 mmol/L (137-145); Total Bilirubin 0.5 mg/dL (0.2-1.3); Total Protein 3.8 g/dL (6.3-8.2)
[2022-01-25] MEDS: INSULIN ASPART (NovoLOG) 100 UNIT/ML VIAL SQ SCH ×4 (06:58→20:30)
[2022-01-25 06:59] LABS: Glucose,Whole Blood 102 mg/dL (70-110)
[2022-01-25] MEDS ORDERED: POTASSIUM CHLORIDE ER 20 MEQ TAB.ER PO SCH ×2 (07:00→12:00)
[2022-01-25 07:20] LABS: Erythrocyte Sedimentation Rate 82 mm/hr (0-20)
[2022-01-25] MEDS: IPRATROPIUM-ALBUTEROL 3 ML NEB INHALATION SCH ×5 (08:02→21:40)
[2022-01-25] MEDS: SYMBICORT 160-4.5 MCG INHALER INHALATION SCH ×2 (08:02→21:34)
[2022-01-25] MEDS: APIXABAN 5 MG TAB PO SCH ×2 (08:04→20:30)
[2022-01-25] MEDS: PANTOPRAZOLE 40 MG/10 ML VIAL IV SCH (08:05)
[2022-01-25] MEDS: ASCORBIC ACID 500 MG TAB PO SCH ×2 (08:05→20:30)
[2022-01-25] MEDS: CHOLECALCIFEROL 25 MCG (1000 IU) TABLET PO SCH (08:05)
[2022-01-25] MEDS: CITALOPRAM HYDROBROMIDE 10 MG TAB PO SCH (08:05)
[2022-01-25] MEDS: ZINC SULFATE 220 MG CAP PO SCH (08:05)
[2022-01-25] MEDS: predniSONE 20 MG TAB PO SCH (08:05)
--- NOTE | 2022-01-25 08:52 | XR ---
EXAMINATION TYPE: XR chest 1V portable DATE OF EXAM: 01/25/2022 COMPARISON: NONE HISTORY: Central line placement TECHNIQUE: Single frontal view of the chest is obtained. FINDINGS: Left-sided central line seen with tip overlying the SVC and no sizable pneumothorax. Diffu se emphysematous changes are seen and there is bilateral infiltrate and small effusion. Heart size no rmal. Atherosclerotic change aorta. IMPRESSION: 1. Bilateral airspace disease and pleural effusion superimposed on a background of COPD stable.
[2022-01-25 09:39] LABS: C Reactive Protein 15.5 mg/dL (<1.0)
[2022-01-25] MEDS: LACTULOSE 20 GM/30 ML CUP PO SCH (10:39)
[2022-01-25] MEDS: NOREPINEPHRINE 8 MG in SODIUM CHLORIDE 0.9% 250 ML IV SCH (11:48)
[2022-01-25 12:05] LABS: Glucose,Whole Blood 140 mg/dL (70-110)
--- NOTE | 2022-01-25 12:43 | P.PN ---
Subjective Progress Note Date: 01/25/22 Samantha Brown, is a 76-year-old female who presented to [facility] emergency room with a chief complaint of generalized weakness, patient's daughter reported in the emergency room that her mother had a fall 4 days prior to presentation She was evaluated in the emergency room vital examination on presentation revealed Laboratory data revealed a white blood count of 14.4 hemoglobin 12.2 platelet count 476 INR 1.2 d-dimer 3.94 sodium 129 potassium 5.1 chloride 99 CO2 23 BUN 76 creatinine 1.92 lactic acid 1.7 Corps on a virus PCR was positive Testing in the emergency room revealed chest x-ray done in emergency room revealed small bilateral pleural effusions and multifocal areas of increased reticular markings, EKG revealed atrial fibrillation with a heart rate of 86 Patient was admitted to medical floor for further evaluation and treatment. Past medical history is significant for history of hypertension, history of hyperlipidemia, history of hypothyroidism, and history of tobacco use patient smokes 2 packs per day On 01/08/2022 patient was seen and examined in the ICU she is alert responsive in mild distress due to shortness of breath, she was started on BiPAP during the night, she is maintained on norepinephrine for pressure support, she is also maintained on IV antibiotic Zosyn, input from cardiology and pulmonary review, patient's daughter Pily contacted over the phone and all questions answered to her satisfaction. On 01/09/2022 patient remains in the intensive care unit slightly improved. Patient remains on BiPAP. Creatinine improving to 1.41 bun 63. Patient remains on IV heparin. Patient also remains on sodium bicarb current vital signs heart rate 88, respiratory rate 19, blood pressure 108/51 patient satting 93% on BiPAP 40% FiO2. On 01/10/2022 patient was seen and examined in the ICU she is alert responsive in no apparent distress she is maintained on BiPAP, she is stating that her shortness of breath is improving she denies any chest pain there is no nausea or vomiting no abdominal pain no diarrhea and no urinary symptoms, however white blood count is 11 hemoglobin 10.8, BUN 60 creatinine 1.12 On 01/11/2022 patient was seen and examined in the ICU she is alert responsive in no apparent distress BiPAP was discontinued and patient was started on Airvo high flow oxygen she is still maintained on levophed for pressure support and this is being weaned down gradually. White blood count is down today to 7.5 BUN down to 45 creatinine 0.83 patient denies any chest pain or shortness of breath is improving, she is receiving IV antibiotic Zosyn she is also receiving Remdesevir for Covid-19 On 01/12/22, patient was seen and examined in the ICU, she is alert and oriented x 3, patient remains on airvo 55% FiO2, chest x-ray is showing some worsening today with interstitial infiltrates, possible interstitial edema. She remains on Decadron, she is also on eliquis, and she is on Zosyn. patient is still requiring norepinephrine On 01/13/2022 patient remains in the intensive care unit. Patient did require higher levels of irritable last night per nursing staff but is back down to 55%. Steroids were increased per pulmonary and critical care. Current vital signs temp 98.6, heart rate 75, respiratory rate 23, blood pressure 107/71 patient currently on 60% airflow satting 98% On 01/14/2022 patient was seen and examined in the ICU she is alert and oriented 3 in no apparent distress she is still maintained on high flow oxygen there is no fever or chills no headache or dizziness no chest pain she has occasional cough no nausea or vomiting no abdominal pain no diarrhea no blood in the stools, no urinary symptoms Wren catheter is in. On 01/15/2022 patient was seen and examined in the ICU she is alert and responsive in no apparent distress she is maintained on high flow oxygen at 15 L/m via nasal cannula there is no fever or chills no headache or dizziness no chest pain she has shortness of breath with any activity and occasional cough no nausea or vomiting no abdominal pain no diarrhea and no urinary symptoms is ma intained on IV Zosyn inhaled bronchodilators, inhaled steroids, and Eliquis, she is off pressure support at this time On 01/16/2022 patient remains in the intensive care unit. Patient remains on high flow 15 L. Patient remains off pressure support medication at this time. Current vital signs temp 97.7 heart rate 57, respiratory rate 17, blood pressure 100/62 sitting 90% on 15 L. On 01/17/2022 patient was seen and examined in the ICU, she is alert and oriented 3 in no apparent distress, she is still maintained on high flow oxygen at 15 L/m, she denies any chest pain, there is no fever or chills no headache or dizziness she has occasional cough no nausea or vomiting no abdominal pain no diarrhea and no urinary symptoms. Patient has poor oral intake, I was contacted today by the dietitian who recommended tube feeding due to patient consuming less then 25% of her meals, tube feeding was discussed in details with patient and at this time she is refusing, she stated that she will work on eating more of her meals. Nutrition supplements will be admitted On 01/18/2022 patient was seen and examined in the ICU, she is alert and oriented 3. Patient is weaning down in oxygen demand patient currently on high flow nasal cannula 10 L. Current vital signs temp 97.4, heart rate 78, res piratory rate 14, blood pressure 98/51. On 01/19/2022 patient was seen and examined on the telemetry floor she is alert and oriented in no apparent distress, she is sitting up in a chair, she is main tained on oxygen at 10 L via high flow nasal cannula, she is denying any complaints at this time there is no fever or chills no headache or dizziness no chest pain no shortness of breath at rest no cough no nausea or vomiting no abdominal pain no diarrhea no blood in the stools no burning with urination no frequency or urgency and no hematuria. She is still having severe weakness and is only able to pivot from her bed to her chair, physical therapy and occupational therapy are consulted, patient was encouraged to increase her oral intake. On 01/20/2022 patient was seen and examined on the medical floor she is alert and oriented 3 in no apparent distress she is still maintained on oxygen at 8 L via nasal cannula, she is feeling better, there is no fever or chills no headache or dizziness no chest pain no shortness of breath at rest she has occasional cough no nausea or vomiting no abdominal pain no diarrhea no blood in the stools no burning with urination no frequency or urgency and no hematuria, physical therapy and occupational therapy are consulted, patient was encouraged to increase her oral intake. On 01/21/2022 patient was seen and examined on the medical floor she is alert and oriented 3 in no distress she is still complaining of shortness of breath with any activity she is maintained on oxygen at 8 L via nasal cannula otherwise she denies any complaints there is no fever or chills no headache or dizziness no chest pain, she has occasional cough no nausea or vomiting no abdominal pain no diarrhea and no urinary symptoms. Patient was seen by physical therapy and occupational therapy she remains very weak a consultation for Dr. Art was initiated for possible rehab admission. On 01/22/2022 patient was seen and examined on the medical floor she is alert and oriented 3 in no distress there is no fever or chills no headache or dizziness no chest pain no cough no nausea or vomiting no abdominal pain no diarrhea and no urinary symptoms she is still complaining of shortness of breath and generalized weakness she is still requiring 8 L of oxygen per minutes, oxygen is being weaned down gradually she would be transferred to custodial in the next 1-2 days for rehab On 01/23/2022 patient was seen and examined in the ICU last night patient had low blood pressure she was given 2 boluses of normal saline 500 mL, however her blood pressure continued to decline and was down to 75/38 patient was transferred to intensive care unit and was started on IV levophed she was evaluated this morning by critical care and was started on IV cefepime. Currently she is stable in ICU she denies any complaints. On 01/24/2022 patient was seen and examined in the ICU she is alert and oriented 3 in no apparent distress she is answering questions appropriately she denies any complaints at this time yesterday she was transferred to ICU due to hypotension, today she is feeling better she is still maintained on levophed she is also maintained on IV antibiotics cefepime. On 01/25/2022 patient was seen and examined in the ICU she is alert and oriented in no distress she is answering questions appropriately she denies any complaints at this time yesterday she was transferred to ICU due to hypotension, today she is feeling better she is still maintained on levophed she is also maintained on IV antibiotics cefepime. She is complaining of constipation otherwise she denies any complaints. Objective - Vital Signs Vital signs: Vital Signs Temp 98.6 F 01/25/22 08:00 Pulse 86 01/25/22 09:00 Resp 21 01/25/22 09:00 BP 90/50 01/25/22 09:00 Pulse Ox 93 L 01/25/22 09:00 FiO2 60 01/13/22 16:00 Intake & Output 01/24/22 01/25/22 01/25/22 18:59 06:59 18:59 Intake Total 4284.014 3041.798 529 Output Total 960 1225 675 Balance 835.227 258.798 -146 Weight 80 kg 82 kg Intake: IV 1586 1336 309 Cefepime 2 gm In Sodium 100 100 Chloride 0.9% 100 ml @ 25 mls/hr IVPB Q8HR [facility] Rx# :[id number] Sodium Chloride 0.9% 1, 1200 1200 300 000 ml @ 100 mls/hr IV . Q10H [facility] Rx#:[id number] Vancomycin 1,250 mg In 250 Sodium Chloride 0.9% 250 ml @ 125 mls/hr IVPB Q12H [facility] Rx#:[id number] pressure bag 36 36 9 Intake, IV Titration 209.227 147.798 Amount Norepinephrine 8 mg In 209.227 147.798 Sodium Chloride 0.9% 250 ml @ 0.03 MCG/KG/MIN 4. 203 mls/hr IV .Q24H [facility] Rx#:[id number] Oral 220 Output: Urine 960 1225 675 Other: Voiding Method Indwelling Catheter Indwelling Catheter Indwelling Catheter ABP, PAP, CO, CI - Last Documented Arterial Blood Pressure 119/45 - Exam In general patient is alert responsive maintained on on oxygen via high flow nasal cannula HEENT head normocephalic and atraumatic Neck is supple no JVD no goiter no lymphadenopathy no carotid bruit Chest examination reveals a scattered crackles bilaterally with mild wheezing Cardiac exam reveals regular heart sounds S1 and S2 no gallops no murmurs Abdomen is soft nontender no organomegaly with normal bowel sounds Extremity exam reveals no edema no cyanosis or clubbing, poor pulses peripherally Neurological examination reveals no gross focal deficits - Labs CBC & Chem 7: 01/25/22 05:05 01/25/22 09:30 Labs: Abnormal Lab Results - Last 24 Hours (Table) 01/24/22 01/24/22 01/24/22 Range/Units 11:37 16:31 20:35 WBC (3.8-10.6) k/uL RBC (3.80-5.40) m/uL Hgb (11.4-16.0) gm/dL Hct (34.0-46.0) % RDW (11.5-15.5) % Neutrophils # (1.3-7.7) k/uL ESR (0-20) mm/hr Sodium (137-145) mmol/L BUN (7-17) mg/dL Creatinine (0.52-1.04) mg/dL POC Glucose (mg/dL) 161 H 210 H 199 H (70-110) mg/dL Calcium (8.4-10.2) mg/dL AST (14-36) U/L C-Reactive Protein (<1.0) mg/dL Total Protein (6.3-8.2) g/dL Albumin (3.5-5.0) g/dL Procalcitonin (0.02-0.09) ng/mL 01/25/22 01/25/22 01/25/22 Range/Units 05:05 05:05 05:05 WBC 20.2 H (3.8-10.6) k/uL RBC 2.94 L (3.80-5.40) m/uL Hgb 8.4 L (11.4-16.0) gm/dL Hct 25.3 L (34.0-46.0) % RDW 16.3 H (11.5-15.5) % Neutrophils # 18.5 H (1.3-7.7) k/uL ESR 82 H (0-20) mm/hr Sodium 134 L (137-145) mmol/L BUN 18 H (7-17) mg/dL Creatinine 0.40 L (0.52-1.04) mg/dL POC Glucose (mg/dL) (70-110) mg/dL Calcium 6.9 L (8.4-10.2) mg/dL AST 12 L (14-36) U/L C-Reactive Protein 15.5 H (<1.0) mg/dL Total Protein 3.8 L (6.3-8.2) g/dL Albumin 1.7 L (3.5-5.0) g/dL Procalcitonin 0.75 H (0.02-0.09) ng/mL Microbiology - Last 24 Hours (Table) 01/23/22 11:10 Urine Culture - Preliminary Urine,Clean Catch Gram Neg Bacilli 01/23/22 10:59 Blood Culture Gram Stain - Preliminary Blood Blood Culture - Preliminary Strep agalactiae - (group b) Assessment and Plan Plan: Acute hypoxic respiratory failure, improving patient transferred out of ICU. Acute coronary 19 pneumonia Underlying history of chronic obstructive pulmonary disease Sepsis as evidenced by leukocytosis, tachycardia, mild elevation in lactic acid and hypotension Elevated d-dimer Acute kidney injury possibly related to dehydration and prerenal azotemia, will monitor kidney function Underlying history of hypertension Underlying history of hypothyroidism Chronic tobacco use patient smokes up to 2 packs per day Persistent atrial fibrillation with controlled heart rate patient has been switched to oral anticoagulation with eliquis At this time patient is admitted to intensive care unit Pulmonary, vascular surgery, and cardiology consultation requested Patient started on IV antibiotics, IV a Remdesevir, IV steroids and inhaled bronchodilators Medication and labs reviewed will follow closely Prognosis is guarded due to severity of illness
--- NOTE | 2022-01-25 13:16 | P.PN ---
Subjective Progress Note Date: 01/25/22 This is a 76-year-old female who is not a great historian, her daughter is at bedside, patient is known to have history of hypothyroidism, COPD, history generalized anxiety disorder, patient has been weak for the last few days. According to the daughter, patient fell 4 days ago, and has been complaining of pain to her buttocks. Patient also had some intermittent cough, shortness of breath, and according to the daughter the patient has not been taking her medications including her thyroid medicine and her Combivent for COPD. Patient is a heavy smoker, she smoked 2 packs a day for many years. Does not use oxygen at home. Workup in the ER included a CBC which showed leukocytosis. Elevated d-dimer of 3.94. Abnormal renal profile with a BUN of 76 creatinine of 1.92 and low sodium of 129, elevated BNP level of 2580, normal troponin, and normal liver enzymes. Patient was also noted to have positive PCR for COVID-19, chest x-ray showed multifocal reticular markings and multifocal atypical infiltrates. Possible underlying pulmonary fibrosis. No old x-ray for comparison. Patient was also noted to be relatively hypotensive requiring fluid boluses with slight improvement of the blood pressure. On 01/23/2022, the patient is being seen for a follow-up. The patient got transferred to the intensive care unit overnight because of hypotension. The patient is currently in the intensive care unit. Noted the patient was in the ICU initially for hypoxic respiratory failure and the patient had high oxygen requirements and the patient was utilizing high flow oxygen at 55 L at one point . The patient gradually improved and the patient was transitioned to a telemetry unit where she was recovering. She is still requiring oxygen at 8 L per minute nasal cannula. Nevertheless, overnight, she became hypotensive and she required fluids and pressors. The patient was given a bolus of 1 L of normal saline. Currently she is on norepinephrine infusion which is running at 0.18 mcg/kg/m. Arterial line catheter was inserted for blood pressure monitoring. Meanwhile, sepsis workup was initiated and the patient developed a rise in a white cell count. The white cell count today is at 26.3. Based on that, cultures will be sent and the patient will be started on broad-spectrum antibiotics. Electrolytes are all within normal limits. Oxygenation remains stable and the patient denies having any worsening shortness of breath. She denies having any cough or sputum production. A repeat chest x-ray was done today and the patient was found to have evidence of some interstitial back up pulmonary infiltrates consistent with bilateral post Covid 19 infection/pneumonia versus edema. Noted the patient has a preserved LV function with an ejection fraction is essentially within normal limits and this is based on echocardiogram that was done on 01/09/2022 that showed a ejection fraction of 55% without any significant valvular abnormalities. The patient has no central lines. No denies vomiting or diarrhea or abdominal pain. No skin rashes. No altered mentation. No headaches. Ultrasound the gallbladder showed large gallstones in the neck of the gallbladder without evidence of any acute cholecystitis. 01/24/2022, the patient the patient is septic and the patient is still on pressors. She is afebrile. Nevertheless, her pro-calcitonin level was elevated and the level was at 3.89. At the same time, the patient had a possible culture with gram-positive cocci in pairs and chains. Vancomycin was added features are again IV cefepime. The white cell count remains elevated and the patient has a WBC count of 27.5. The patient is currently on norepinephrine which is running in the rate of 0.12 mcg/kg/m. The patient is also on IV fluids at 100 mL an hour of normal saline. The patient has a stage II sacral decub ulcer which does not look to be infected. The patient has some swelling over the right hip and the right hip joint is quite painful to passive range of motion. There is some erythema and warmth at the level of the right upper lateral thigh. As such, s eptic joint is also being suspected. Clinically, the patient is unchanged compared to yesterday. She remains on 8 L of oxygen by nasal cannula. The chest x-ray from today still showing bilateral pulmonary infiltrates and background COPD. No nausea. No vomiting. She has large gallstones without evidence of any cholecystitis. No altered mentation. Her appetite is weak. Her oral intake is quite diminished. She has a normal left ventricular ejection fraction. 01/25/2022, the patient is still in the intensive care unit for septic shock. The patient obviously decompensated the patient became hypotensive and for that reason the patient got transferred to the intensive care unit. She was having elevated pro-calcitonin level, elevated white count and she was also hypotensive. Septic workup was done. The patient's blood culture came back positive for strep group B and the urine culture came back positive for gram- negative bacillus. The patient is currently covered with IV cefepime. The patient received IV fluids and hemodynamically she is doing better and the patient's pressor requirements improved considerably and currently she is only at 0.06 mcg/kg/m of norepinephrine infusion. I'm hopeful that this will be further weaned on today's evaluation. Meanwhile, the patient remains on normal saline at the rate of 100 mL an hour. She is on O2 at 6 L/m. The exact source of the strep infection is not known. I was suspecting a septic joint. CAT scan of the right hip was done and showed no acute abnormalities. No evidence of any hematoma formation or septic joint or abscess formation. The patient's echoes down to 20 with a hemoglobin of 8.4 and a platelet count of 165. BUN is 18 with a creatinine of 0.4 and a sodium level is at 134 with a potassium level of 3.6. Note that the gram-negative in the urine could be potentially a colonizer as the patient's UA was essentially benign. She is. She is alert. She is quite hard of hearing and she is able to communicate. No signs of any significant respiratory distress for now. Overall condition is stable. Respiratory status is also stable. Chest x-ray was repeated and the findings are essentially stable at this point in time. Objective - Vital Signs Vital signs: Vital Signs Temp 98.5 F 01/25/22 12:00 Pulse 87 01/25/22 12:00 Resp 16 01/25/22 12:00 BP 91/69 01/25/22 12:00 Pulse Ox 94 L 01/25/22 12:00 FiO2 60 01/13/22 16:00 Intake & Output 01/24/22 01/25/22 01/25/22 18:59 06:59 18:59 Intake Total 2068.700 3839.798 1014.495 Output Total 960 1225 1350 Balance 835.227 258.798 -335.505 Weight 80 kg 82 kg Intake: IV 1586 1336 718 Cefepime 2 gm In Sodium 100 100 100 Chloride 0.9% 100 ml @ 25 mls/hr IVPB Q8HR [facility] Rx# :[id number] Sodium Chloride 0.9% 1, 1200 1200 600 000 ml @ 100 mls/hr IV . Q10H [facility] Rx#:[id number] Vancomycin 1,250 mg In 250 Sodium Chloride 0.9% 250 ml @ 125 mls/hr IVPB Q12H [facility] Rx#:[id number] pressure bag 36 36 18 Intake, IV Titration 209.227 147.798 76.495 Amount Norepinephrine 8 mg In 209.227 147.798 76.495 Sodium Chloride 0.9% 250 ml @ 0.03 MCG/KG/MIN 4. 203 mls/hr IV .Q24H [facility] Rx#:[id number] Oral 220 Output: Urine 960 1225 1350 Other: Voiding Method Indwelling Catheter Indwelling Catheter Indwelling Catheter ABP, PAP, CO, CI - Last Documented Arterial Blood Pressure 110/49 - Exam GENERAL EXAM: Alert, frail, 76-year-old female, on 8 L high flow nasal cannula, comfortable in no apparent distress. HEAD: Normocephalic. EYES: Normal reaction of pupils, equal size. NOSE: Clear with pink turbinates. THROAT: No erythema or exudates. NECK: No masses, no JVD. CHEST: No chest wall deformity. LUNGS: Equal air entry with crackles in the bilateral bases. CVS: S1 and S2 normal with no audible murmur, irregular rhythm. ABDOMEN: No hepatosplenomegaly, normal bowel sounds, no guarding or rigidity. SPINE: No scoliosis or deformity SKIN: No rashes. Ecchymosis of the lower lumbar sacral area due to previous fall CENTRAL NERVOUS SYSTEM: No focal deficits, tone is normal in all 4 extremities. EXTREMITIES: There is no peripheral edema. No clubbing, no cyanosis. Peripheral pulses are intact. He has swelling over the right hip joint extending to the anterior and lateral thigh along with some erythema and warmth. - Labs CBC & Chem 7: 01/25/22 05:05 01/25/22 09:30 Labs: Abnormal Lab Results - Last 24 Hours (Table) 01/24/22 01/24/22 01/25/22 Range/Units 16:31 20:35 05:05 WBC (3.8-10.6) k/uL RBC (3.80-5.40) m/uL Hgb (11.4-16.0) gm/dL Hct (34.0-46.0) % RDW (11.5-15.5) % Neutrophils # (1.3-7.7) k/uL ESR (0-20) mm/hr Sodium (137-145) mmol/L BUN (7-17) mg/dL Creatinine (0.52-1.04) mg/dL POC Glucose (mg/dL) 210 H 199 H (70-110) mg/dL Calcium (8.4-10.2) mg/dL AST (14-36) U/L C-Reactive Protein (<1.0) mg/dL Total Protein (6.3-8.2) g/dL Albumin (3.5-5.0) g/dL Procalcitonin 0.75 H (0.02-0.09) ng/mL 01/25/22 01/25/22 01/25/22 Range/Units 05:05 05:05 12:04 WBC 20.2 H (3.8-10.6) k/uL RBC 2.94 L (3.80-5.40) m/uL Hgb 8.4 L (11.4-16.0) gm/dL Hct 25.3 L (34.0-46.0) % RDW 16.3 H (11.5-15.5) % Neutrophils # 18.5 H (1.3-7.7) k/uL ESR 82 H (0-20) mm/hr Sodium 134 L (137-145) mmol/L BUN 18 H (7-17) mg/dL Creatinine 0.40 L (0.52-1.04) mg/dL POC Glucose (mg/dL) 140 H (70-110) mg/dL Calcium 6.9 L (8.4-10.2) mg/dL AST 12 L (14-36) U/L C-Reactive Protein 15.5 H (<1.0) mg/dL Total Protein 3.8 L (6.3-8.2) g/dL Albumin 1.7 L (3.5-5.0) g/dL Procalcitonin (0.02-0.09) ng/mL Microbiology - Last 24 Hours (Table) 01/23/22 11:10 Urine Culture - Final Urine,Clean Catch Escherichia coli 01/23/22 10:59 Blood Culture Gram Stain - Preliminary Blood Blood Culture - Preliminary Strep agalactiae - (group b) Assessment and Plan Plan: Acute hypoxic respiratory failure secondary to a pulmonary fibrosis addition to a Covid 19 pneumonia. Patient could've also had a pulmonary embolism based on CT of the chest as well as done on 01/18/2022. The patient was requiring high amount of oxygen initially BiPAP and later on high flow oxygen and currently is down to 6 L O2 nasal cannula. She does have underlying chronic lung disease. The patient's oxygen requirements have not changed and it actually improved and the patient has been weaned down to 6 L O2 nasal cannula Acute sepsis with Streptococcus. Exact source is not clear. The skin versus soft tissue as the patient has a stage II ones in her sacrum. Otherwise, no other clear-cut identifiable source of an infection. Hemodynamically stable and the pressor requirements improved significantly. Gram-negative in the urine, likely colonization. UA was benign. Pulmonary fibrosis and chronic hypoxic respiratory failure Severe pulmonary hypertension with RV systolic pressure of 74, questionable RV thrombus Acute Hypotension, secondary to sepsis/septic shock. It is currently on that investigation. The patient got transferred to the ICU because of acute hypotension and acute leukocytosis. The patient is currently on pressors and the patient on norepinephrine infusion and sepsis workup is in progress. Gallstones without evidence of any cholecystitis Normal left ventricular ejection fraction without evidence of any heart failure COPD History of chronic smoking History of hypothyroidism. History of generalized anxiety disorder . Acute dehydration, resolved. Acute kidney injury, recovered Paroxysmal atrial fibrillation DNR/DNI Plan Continue cefepime Discontinue Vancomycin Wean off pressors Pro calcitonin level is elevated and this is to be followed up CAT scan of the right hip was essentially within normal limits Continue normal saline at rate of 100 mL an hour triple-lumen catheter was establish yesterday Wean off pressors and the patient is currently on norepinephrine infusion, currently on minimal doses of norepinephrine Chest x-ray was noted Wean down FiO2 as tolerated currently she is down to 6 L hold diuretics Continue the prednisone burst taper We'll continue to follow Patient will be kept in intensive care unit for now
[2022-01-25] MEDS: ACETAMINOPHEN TAB 325 MG TAB PO PRN (15:28)
[2022-01-25 16:42] LABS: Glucose,Whole Blood 213 mg/dL (70-110)
--- NOTE | 2022-01-25 19:47 | P.PN ---
Subjective Progress Note Date: 01/25/22 Principal diagnosis: Sacral wound Patient is a 76-year old female with multiple comorbidities including COPD current 2 pack smoker hypothyroidism presented to the hospital with weakness patient also have a fall landed on her gluteal area and has developed a deep tissue injury to the sacral area and tested positive for COVID-19. On today's evaluation that is 01/25/2022 the patient remains to be afebrile, patient is breathing comfortably no chest pain or worsening cough and not bringing up any sputum no nausea no vomiting no abdominal pain no diarrhea Objective - Vital Signs Vital signs: Vital Signs Temp 98.6 F 01/25/22 08:00 Pulse 83 01/25/22 11:00 Resp 10 L 01/25/22 11:00 BP 92/57 01/25/22 11:00 Pulse Ox 94 L 01/25/22 11:00 FiO2 60 01/13/22 16:00 Intake & Output 01/24/22 01/25/22 01/25/22 18:59 06:59 18:59 Intake Total 2913.264 3183.798 835 Output Total 960 1225 1150 Balance 835.227 258.798 -315 Weight 80 kg 82 kg Intake: IV 1586 1336 615 Cefepime 2 gm In Sodium 100 100 100 Chloride 0.9% 100 ml @ 25 mls/hr IVPB Q8HR [facility] Rx# :[id number] Sodium Chloride 0.9% 1, 1200 1200 500 000 ml @ 100 mls/hr IV . Q10H [facility] Rx#:[id number] Vancomycin 1,250 mg In 250 Sodium Chloride 0.9% 250 ml @ 125 mls/hr IVPB Q12H [facility] Rx#:[id number] pressure bag 36 36 15 Intake, IV Titration 209.227 147.798 Amount Norepinephrine 8 mg In 209.227 147.798 Sodium Chloride 0.9% 250 ml @ 0.03 MCG/KG/MIN 4. 203 mls/hr IV .Q24H [facility] Rx#:[id number] Oral 220 Output: Urine 960 1225 1150 Other: Voiding Method Indwelling Catheter Indwelling Catheter Indwelling Catheter ABP, PAP, CO, CI - Last Documented Arterial Blood Pressure 130/49 - Exam GENERAL DESCRIPTION: An elderly female lying in bed in no distress RESPIRATORY SYSTEM: Unlabored breathing , decreased breath sounds at bases HEART: S1 S2 regular rate and rhythm , ABDOMEN: Soft , no tenderness EXTREMITIES: Right hip area did have swelling and minimal erythema but no open wound or any drainage Sacral pressure ulcer is currently dressed - Labs CBC & Chem 7: 01/25/22 05:05 01/25/22 09:30 Labs: Abnormal Lab Results - Last 24 Hours (Table) 01/24/22 01/24/22 01/24/22 Range/Units 11:37 16:31 20:35 WBC (3.8-10.6) k/uL RBC (3.80-5.40) m/uL Hgb (11.4-16.0) gm/dL Hct (34.0-46.0) % RDW (11.5-15.5) % Neutrophils # (1.3-7.7) k/uL ESR (0-20) mm/hr Sodium (137-145) mmol/L BUN (7-17) mg/dL Creatinine (0.52-1.04) mg/dL POC Glucose (mg/dL) 161 H 210 H 199 H (70-110) mg/dL Calcium (8.4-10.2) mg/dL AST (14-36) U/L C-Reactive Protein (<1.0) mg/dL Total Protein (6.3-8.2) g/dL Albumin (3.5-5.0) g/dL Procalcitonin (0.02-0.09) ng/mL 01/25/22 01/25/22 01/25/22 Range/Units 05:05 05:05 05:05 WBC 20.2 H (3.8-10.6) k/uL RBC 2.94 L (3.80-5.40) m/uL Hgb 8.4 L (11.4-16.0) gm/dL Hct 25.3 L (34.0-46.0) % RDW 16.3 H (11.5-15.5) % Neutrophils # 18.5 H (1.3-7.7) k/uL ESR 82 H (0-20) mm/hr Sodium 134 L (137-145) mmol/L BUN 18 H (7-17) mg/dL Creatinine 0.40 L (0.52-1.04) mg/dL POC Glucose (mg/dL) (70-110) mg/dL Calcium 6.9 L (8.4-10.2) mg/dL AST 12 L (14-36) U/L C-Reactive Protein 15.5 H (<1.0) mg/dL Total Protein 3.8 L (6.3-8.2) g/dL Albumin 1.7 L (3.5-5.0) g/dL Procalcitonin 0.75 H (0.02-0.09) ng/mL Microbiology - Last 24 Hours (Table) 01/23/22 11:10 Urine Culture - Final Urine,Clean Catch Escherichia coli 01/23/22 10:59 Blood Culture Gram Stain - Preliminary Blood Blood Culture - Preliminary Strep agalactiae - (group b) Assessment and Plan (1) Pressure ulcer of sacral region, stage 2 Current Visit: Yes Status: Acute Code(s): L89.152 - PRESSURE ULCER OF SACRAL REGION, STAGE 2 SNOMED Code(s): 76661677688913 Plan: 1patient with leukocytosis and hypotension requiring transfer to the ICU, chest x-ray has been mostly pulmonary edemain change, patient did have elevated white count and blood culture now showing Streptococcus agalactiae which usually of skin and soft tissue origin patient did have some swelling and erythema to the right hip with no evidence of any fracture or abscess patient to continue with the cefepime and monitor clinical course closely 2urine cultures with an E. coli and is covered with the cefepime the patient is on Time with Patient: Less than 30
[2022-01-25] MEDS ORDERED: VANCOMYCIN TROUGH DUE 1 EACH MISC MISCELLANE ONE (20:00)
[2022-01-25 20:18] LABS: Glucose,Whole Blood 156 mg/dL (70-110)
[2022-01-25] MEDS: risperiDONE 2 MG TAB PO SCH (20:30)
[2022-01-26] MEDS: CEFEPIME 2 GM in SODIUM CHLORIDE 0.9% 100 ML IVPB SCH ×2 (00:12→08:50)
[2022-01-26] MEDS: SODIUM CHLORIDE 0.9% 1,000 ML IV SCH ×3 (02:37→18:02)
[2022-01-26 06:18] LABS: Anisocytosis Slight; Basophils % (A) 0 %; Eosinophils # (A) 0.3 k/uL (0-0.7); Eosinophils % (A) 3 %; HCT 25.1 % (34.0-46.0); HGB 8.2 gm/dL (11.4-16.0); Hypochromasia Slight; Lymphocytes # (A) 1.1 k/uL (1.0-4.8); Lymphocytes % (A) 13 %; MCH 28.4 pg (25.0-35.0); MCHC 32.7 g/dL (31.0-37.0); MCV 86.9 fL (80.0-100.0); Monocytes # (A) 0.5 k/uL (0-1.0); Monocytes % (A) 5 %; Neutrophils # (A) 6.9 k/uL (1.3-7.7); Neutrophils % (A) 78 %; Platelet Count 163 k/uL (150-450); RBC 2.89 m/uL (3.80-5.40); RDW 16.3 % (11.5-15.5); WBC 8.9 k/uL (3.8-10.6)
[2022-01-26 06:30] LABS: ALT 12 U/L (4-34); AST 12 U/L (14-36); African American GFR (CKD) >90 (>60 ml/min/1.73 sqM); Albumin 1.7 g/dL (3.5-5.0); Alkaline Phosphatase 69 U/L (38-126); Anion Gap 1 mmol/L; Blood Urea Nitrogen 18 mg/dL (7-17); Carbon Dioxide 27 mmol/L (22-30); Chloride 107 mmol/L (98-107); Glucose 81 mg/dL (74-99); Non-African American GFR(CKD) >90 (>60 ml/min/1.73 sqM); Potassium 3.8 mmol/L (3.5-5.1); Sodium 135 mmol/L (137-145); Total Bilirubin 0.5 mg/dL (0.2-1.3); Total Protein 3.8 g/dL (6.3-8.2)
[2022-01-26] MEDS: LEVOTHYROXINE 75 MCG TAB PO SCH (06:43)
[2022-01-26 07:00] LABS: Glucose,Whole Blood 93 mg/dL (70-110)
--- NOTE | 2022-01-26 08:00 | XR ---
EXAMINATION TYPE: XR chest 1V portable DATE OF EXAM: 01/26/2022 5:52 AM COMPARISON: Chest radiograph from one day prior. TECHNIQUE: XR chest 1V portable Frontal and lateral views of the chest. CLINICAL INDICATION:Female, 77 years old with history of Shortness of breath; FINDINGS: Lungs/Pleura: Similar multifocal airspace opacities. No evidence of pneumothorax small bilateral pleu ral effusions. Pulmonary vascularity: Unremarkable. Heart/mediastinum: Cardiomediastinal silhouette is unremarkable. Musculoskeletal: No acute osseous pathology. Lines: Left PICC in appropriate position. IMPRESSION: 1. Similar multifocal airspace opacities. 2. Similar bilateral small pleural effusions. 3. COPD.
[2022-01-26] MEDS: INSULIN ASPART (NovoLOG) 100 UNIT/ML VIAL SQ SCH ×4 (08:06→21:33)
[2022-01-26] MEDS ORDERED: Potassium Replacement Protocol 1 EACH MISC MISCELLANE PRN (08:08)
[2022-01-26] MEDS: APIXABAN 5 MG TAB PO SCH ×2 (08:45→21:33)
[2022-01-26] MEDS: ASCORBIC ACID 500 MG TAB PO SCH ×2 (08:46→21:34)
[2022-01-26] MEDS: CITALOPRAM HYDROBROMIDE 10 MG TAB PO SCH (08:46)
[2022-01-26] MEDS: CHOLECALCIFEROL 25 MCG (1000 IU) TABLET PO SCH (08:46)
[2022-01-26] MEDS: PANTOPRAZOLE 40 MG/10 ML VIAL IV SCH (08:47)
[2022-01-26] MEDS: LACTULOSE 20 GM/30 ML CUP PO SCH (08:47)
[2022-01-26] MEDS: predniSONE 10 MG TAB PO SCH (08:48)
[2022-01-26] MEDS: ZINC SULFATE 220 MG CAP PO SCH (08:49)
[2022-01-26] MEDS ORDERED: POTASSIUM CHLORIDE ER 20 MEQ TAB.ER PO SCH (09:00)
[2022-01-26] MEDS: IPRATROPIUM-ALBUTEROL 3 ML NEB INHALATION SCH ×4 (09:04→20:30)
[2022-01-26] MEDS: SYMBICORT 160-4.5 MCG INHALER INHALATION SCH ×2 (09:04→20:31)
--- NOTE | 2022-01-26 11:05 | P.PN ---
Subjective Progress Note Date: 01/26/22 Principal diagnosis: Sacral wound Patient is a 76-year old female with multiple comorbidities including COPD current 2 pack smoker hypothyroidism presented to the hospital with weakness patient also have a fall landed on her gluteal area and has developed a deep tissue injury to the sacral area and tested positive for COVID-19. On today's evaluation that is 01/26/2022 the patient denies any fever or chills, patient is breathing comfortably on room air, the patient denies chest pain or worsening cough and not bringing up any sputum no nausea no vomiting no abdomin al pain no diarrhea Objective - Vital Signs Vital signs: Vital Signs Temp 97.9 F 01/26/22 08:00 Pulse 84 01/26/22 10:00 Resp 12 01/26/22 10:00 BP 91/69 01/25/22 12:00 Pulse Ox 92 L 01/26/22 10:00 FiO2 60 01/13/22 16:00 Intake & Output 01/25/22 01/26/22 01/26/22 18:59 06:59 18:59 Intake Total 9667.264 8955.476 805.454 Output Total 2350 1775 1000 Balance -617.505 -280.524 -194.546 Weight 82.1 kg Intake: IV 1436 1336 512 Cefepime 2 gm In Sodium 200 100 100 Chloride 0.9% 100 ml @ 25 mls/hr IVPB Q8HR [facility] Rx# :[id number] Sodium Chloride 0.9% 1, 1200 1200 400 000 ml @ 100 mls/hr IV . Q10H [facility] Rx#:[id number] pressure bag 36 36 12 Intake, IV Titration 76.495 158.476 43.454 Amount Norepinephrine 8 mg In 76.495 158.476 43.454 Sodium Chloride 0.9% 250 ml @ 0.03 MCG/KG/MIN 4. 203 mls/hr IV .Q24H [facility] Rx#:[id number] Oral 220 250 Output: Urine 2350 1775 1000 Other: Voiding Method Indwelling Catheter Indwelling Catheter Indwelling Catheter ABP, PAP, CO, CI - Last Documented Arterial Blood Pressure 99/36 - Exam GENERAL DESCRIPTION: An elderly female lying in bed in no distress RESPIRATORY SYSTEM: Unlabored breathing , decreased breath sounds at bases HEART: S1 S2 regular rate and rhythm , ABDOMEN: Soft , no tenderness EXTREMITIES: Right hip area did have swelling and minimal erythema but no open wound or any drainage Sacral pressure ulcer is currently dressed - Labs CBC & Chem 7: 01/26/22 06:08 01/26/22 06:08 Labs: Abnormal Lab Results - Last 24 Hours (Table) 01/25/22 01/25/22 01/25/22 Range/Units 12:04 16:41 20:17 RBC (3.80-5.40) m/uL Hgb (11.4-16.0) gm/dL Hct (34.0-46.0) % RDW (11.5-15.5) % Sodium (137-145) mmol/L BUN (7-17) mg/dL Creatinine (0.52-1.04) mg/dL POC Glucose (mg/dL) 140 H 213 H 156 H (70-110) mg/dL Calcium (8.4-10.2) mg/dL AST (14-36) U/L Total Protein (6.3-8.2) g/dL Albumin (3.5-5.0) g/dL 01/26/22 01/26/22 Range/Units 06:08 06:08 RBC 2.89 L (3.80-5.40) m/uL Hgb 8.2 L (11.4-16.0) gm/dL Hct 25.1 L (34.0-46.0) % RDW 16.3 H (11.5-15.5) % Sodium 135 L (137-145) mmol/L BUN 18 H (7-17) mg/dL Creatinine 0.37 L (0.52-1.04) mg/dL POC Glucose (mg/dL) (70-110) mg/dL Calcium 7.0 L (8.4-10.2) mg/dL AST 12 L (14-36) U/L Total Protein 3.8 L (6.3-8.2) g/dL Albumin 1.7 L (3.5-5.0) g/dL Microbiology - Last 24 Hours (Table) 01/25/22 05:05 Blood Culture - Preliminary Blood No Growth after 24 hours 01/23/22 11:10 Urine Culture - Final Urine,Clean Catch Escherichia coli Assessment and Plan (1) Pressure ulcer of sacral region, stage 2 Current Visit: Yes Status: Acute Code(s): L89.152 - PRESSURE ULCER OF SACRAL REGION, STAGE 2 SNOMED Code(s): 24178476517163 Plan: 1patient with leukocytosis and hypotension requiring transfer to the ICU, chest x-ray has been mostly pulmonary edemain change, patient did have elevated white count and blood culture now showing Streptococcus agalactiae which usually of skin and soft tissue origin patient did have some swelling and erythema to the right hip with no evidence of any fracture or abscess , repeat blood culture has been negative 2urine cultures with an E. coli 3-we will discontinue the cefepime and start the patient Rocephin 2 g daily that will cover for both pathogen Time with Patient: Less than 30
[2022-01-26 11:56] LABS: Glucose,Whole Blood 145 mg/dL (70-110)
--- NOTE | 2022-01-26 12:50 | P.PN ---
Subjective Progress Note Date: 01/26/22 Samantha Brown, is a 76-year-old female who presented to [facility] emergency room with a chief complaint of generalized weakness, patient's daughter reported in the emergency room that her mother had a fall 4 days prior to presentation She was evaluated in the emergency room vital examination on presentation revealed Laboratory data revealed a white blood count of 14.4 hemoglobin 12.2 platelet count 476 INR 1.2 d-dimer 3.94 sodium 129 potassium 5.1 chloride 99 CO2 23 BUN 76 creatinine 1.92 lactic acid 1.7 Corps on a virus PCR was positive Testing in the emergency room revealed chest x-ray done in emergency room revealed small bilateral pleural effusions and multifocal areas of increased reticular markings, EKG revealed atrial fibrillation with a heart rate of 86 Patient was admitted to medical floor for further evaluation and treatment. Past medical history is significant for history of hypertension, history of hyperlipidemia, history of hypothyroidism, and history of tobacco use patient smokes 2 packs per day On 01/08/2022 patient was seen and examined in the ICU she is alert responsive in mild distress due to shortness of breath, she was started on BiPAP during the night, she is maintained on norepinephrine for pressure support, she is also maintained on IV antibiotic Zosyn, input from cardiology and pulmonary review, patient's daughter Pily contacted over the phone and all questions answered to her satisfaction. On 01/09/2022 patient remains in the intensive care unit slightly improved. Patient remains on BiPAP. Creatinine improving to 1.41 bun 63. Patient remains on IV heparin. Patient also remains on sodium bicarb current vital signs heart rate 88, respiratory rate 19, blood pressure 108/51 patient satting 93% on BiPAP 40% FiO2. On 01/10/2022 patient was seen and examined in the ICU she is alert responsive in no apparent distress she is maintained on BiPAP, she is stating that her shortness of breath is improving she denies any chest pain there is no nausea or vomiting no abdominal pain no diarrhea and no urinary symptoms, however white blood count is 11 hemoglobin 10.8, BUN 60 creatinine 1.12 On 01/11/2022 patient was seen and examined in the ICU she is alert responsive in no apparent distress BiPAP was discontinued and patient was started on Airvo high flow oxygen she is still maintained on levophed for pressure support and this is being weaned down gradually. White blood count is down today to 7.5 BUN down to 45 creatinine 0.83 patient denies any chest pain or shortness of breath is improving, she is receiving IV antibiotic Zosyn she is also receiving Remdesevir for Covid-19 On 01/12/22, patient was seen and examined in the ICU, she is alert and oriented x 3, patient remains on airvo 55% FiO2, chest x-ray is showing some worsening today with interstitial infiltrates, possible interstitial edema. She remains on Decadron, she is also on eliquis, and she is on Zosyn. patient is still requiring norepinephrine On 01/13/2022 patient remains in the intensive care unit. Patient did require higher levels of irritable last night per nursing staff but is back down to 55%. Steroids were increased per pulmonary and critical care. Current vital signs temp 98.6, heart rate 75, respiratory rate 23, blood pressure 107/71 patient currently on 60% airflow satting 98% On 01/14/2022 patient was seen and examined in the ICU she is alert and oriented 3 in no apparent distress she is still maintained on high flow oxygen there is no fever or chills no headache or dizziness no chest pain she has occasional cough no nausea or vomiting no abdominal pain no diarrhea no blood in the stools, no urinary symptoms Wren catheter is in. On 01/15/2022 patient was seen and examined in the ICU she is alert and responsive in no apparent distress she is maintained on high flow oxygen at 15 L/m via nasal cannula there is no fever or chills no headache or dizziness no chest pain she has shortness of breath with any activity and occasional cough no nausea or vomiting no abdominal pain no diarrhea and no urinary symptoms is ma intained on IV Zosyn inhaled bronchodilators, inhaled steroids, and Eliquis, she is off pressure support at this time On 01/16/2022 patient remains in the intensive care unit. Patient remains on high flow 15 L. Patient remains off pressure support medication at this time. Current vital signs temp 97.7 heart rate 57, respiratory rate 17, blood pressure 100/62 sitting 90% on 15 L. On 01/17/2022 patient was seen and examined in the ICU, she is alert and oriented 3 in no apparent distress, she is still maintained on high flow oxygen at 15 L/m, she denies any chest pain, there is no fever or chills no headache or dizziness she has occasional cough no nausea or vomiting no abdominal pain no diarrhea and no urinary symptoms. Patient has poor oral intake, I was contacted today by the dietitian who recommended tube feeding due to patient consuming less then 25% of her meals, tube feeding was discussed in details with patient and at this time she is refusing, she stated that she will work on eating more of her meals. Nutrition supplements will be admitted On 01/18/2022 patient was seen and examined in the ICU, she is alert and oriented 3. Patient is weaning down in oxygen demand patient currently on high flow nasal cannula 10 L. Current vital signs temp 97.4, heart rate 78, res piratory rate 14, blood pressure 98/51. On 01/19/2022 patient was seen and examined on the telemetry floor she is alert and oriented in no apparent distress, she is sitting up in a chair, she is main tained on oxygen at 10 L via high flow nasal cannula, she is denying any complaints at this time there is no fever or chills no headache or dizziness no chest pain no shortness of breath at rest no cough no nausea or vomiting no abdominal pain no diarrhea no blood in the stools no burning with urination no frequency or urgency and no hematuria. She is still having severe weakness and is only able to pivot from her bed to her chair, physical therapy and occupational therapy are consulted, patient was encouraged to increase her oral intake. On 01/20/2022 patient was seen and examined on the medical floor she is alert and oriented 3 in no apparent distress she is still maintained on oxygen at 8 L via nasal cannula, she is feeling better, there is no fever or chills no headache or dizziness no chest pain no shortness of breath at rest she has occasional cough no nausea or vomiting no abdominal pain no diarrhea no blood in the stools no burning with urination no frequency or urgency and no hematuria, physical therapy and occupational therapy are consulted, patient was encouraged to increase her oral intake. On 01/21/2022 patient was seen and examined on the medical floor she is alert and oriented 3 in no distress she is still complaining of shortness of breath with any activity she is maintained on oxygen at 8 L via nasal cannula otherwise she denies any complaints there is no fever or chills no headache or dizziness no chest pain, she has occasional cough no nausea or vomiting no abdominal pain no diarrhea and no urinary symptoms. Patient was seen by physical therapy and occupational therapy she remains very weak a consultation for Dr. Art was initiated for possible rehab admission. On 01/22/2022 patient was seen and examined on the medical floor she is alert and oriented 3 in no distress there is no fever or chills no headache or dizziness no chest pain no cough no nausea or vomiting no abdominal pain no diarrhea and no urinary symptoms she is still complaining of shortness of breath and generalized weakness she is still requiring 8 L of oxygen per minutes, oxygen is being weaned down gradually she would be transferred to group home in the next 1-2 days for rehab On 01/23/2022 patient was seen and examined in the ICU last night patient had low blood pressure she was given 2 boluses of normal saline 500 mL, however her blood pressure continued to decline and was down to 75/38 patient was transferred to intensive care unit and was started on IV levophed she was evaluated this morning by critical care and was started on IV cefepime. Currently she is stable in ICU she denies any complaints. On 01/24/2022 patient was seen and examined in the ICU she is alert and oriented 3 in no apparent distress she is answering questions appropriately she denies any complaints at this time yesterday she was transferred to ICU due to hypotension, today she is feeling better she is still maintained on levophed she is also maintained on IV antibiotics cefepime. On 01/25/2022 patient was seen and examined in the ICU she is alert and oriented in no distress she is answering questions appropriately she denies any complaints at this time yesterday she was transferred to ICU due to hypotension, today she is feeling better she is still maintained on levophed she is also maintained on IV antibiotics cefepime. She is complaining of constipation otherwise she denies any complaints. On 01/26/2022 patient was seen and examined in the ICU she is alert and oriented in no distress, she denies any complaints at this time yesterday she was transferred to ICU due to hypotension, today she is feeling better she is still maintained on levophed she is also maintained on IV antibiotics ceftriaxon. She is off oxygen at this time and saturating at 92% Objective - Vital Signs Vital signs: Vital Signs Temp 97.9 F 01/26/22 08:00 Pulse 84 01/26/22 10:00 Resp 12 01/26/22 10:00 BP 91/69 01/25/22 12:00 Pulse Ox 92 L 01/26/22 10:00 FiO2 60 01/13/22 16:00 Intake & Output 01/25/22 01/26/22 01/26/22 18:59 06:59 18:59 Intake Total 0412.061 8808.476 805.454 Output Total 2350 1775 1000 Balance -617.505 -280.524 -194.546 Weight 82.1 kg Intake: IV 1436 1336 512 Cefepime 2 gm In Sodium 200 100 100 Chloride 0.9% 100 ml @ 25 mls/hr IVPB Q8HR RADHA Rx# :[id number] Sodium Chloride 0.9% 1, 1200 1200 400 000 ml @ 100 mls/hr IV . Q10H [facility]HA Rx#:[id number] pressure bag 36 36 12 Intake, IV Titration 76.495 158.476 43.454 Amount Norepinephrine 8 mg In 76.495 158.476 43.454 Sodium Chloride 0.9% 250 ml @ 0.03 MCG/KG/MIN 4. 203 mls/hr IV .Q24H RADHA Rx#:[id number] Oral 220 250 Output: Urine 2350 1775 1000 Other: Voiding Method Indwelling Catheter Indwelling Catheter Indwelling Catheter ABP, PAP, CO, CI - Last Documented Arterial Blood Pressure 99/36 - Exam In general patient is alert responsive maintained on on oxygen via high flow nasal cannula HEENT head normocephalic and atraumatic Neck is supple no JVD no goiter no lymphadenopathy no carotid bruit Chest examination reveals a scattered crackles bilaterally with mild wheezing Cardiac exam reveals regular heart sounds S1 and S2 no gallops no murmurs Abdomen is soft nontender no organomegaly with normal bowel sounds Extremity exam reveals no edema no cyanosis or clubbing, poor pulses peripherally Neurological examination reveals no gross focal deficits - Labs CBC & Chem 7: 01/26/22 06:08 01/26/22 06:08 Labs: Abnormal Lab Results - Last 24 Hours (Table) 01/25/22 01/25/22 01/25/22 Range/Units 12:04 16:41 20:17 RBC (3.80-5.40) m/uL Hgb (11.4-16.0) gm/dL Hct (34.0-46.0) % RDW (11.5-15.5) % Sodium (137-145) mmol/L BUN (7-17) mg/dL Creatinine (0.52-1.04) mg/dL POC Glucose (mg/dL) 140 H 213 H 156 H (70-110) mg/dL Calcium (8.4-10.2) mg/dL AST (14-36) U/L Total Protein (6.3-8.2) g/dL Albumin (3.5-5.0) g/dL 01/26/22 01/26/22 Range/Units 06:08 06:08 RBC 2.89 L (3.80-5.40) m/uL Hgb 8.2 L (11.4-16.0) gm/dL Hct 25.1 L (34.0-46.0) % RDW 16.3 H (11.5-15.5) % Sodium 135 L (137-145) mmol/L BUN 18 H (7-17) mg/dL Creatinine 0.37 L (0.52-1.04) mg/dL POC Glucose (mg/dL) (70-110) mg/dL Calcium 7.0 L (8.4-10.2) mg/dL AST 12 L (14-36) U/L Total Protein 3.8 L (6.3-8.2) g/dL Albumin 1.7 L (3.5-5.0) g/dL Microbiology - Last 24 Hours (Table) 01/25/22 05:05 Blood Culture - Preliminary Blood No Growth after 24 hours 01/23/22 11:10 Urine Culture - Final Urine,Clean Catch Escherichia coli Assessment and Plan Plan: Acute hypoxic respiratory failure, improving patient transferred out of ICU. Acute coronary 19 pneumonia Underlying history of chronic obstructive pulmonary disease Sepsis as evidenced by leukocytosis, tachycardia, mild elevation in lactic acid and hypotension Elevated d-dimer Acute kidney injury possibly related to dehydration and prerenal azotemia, will monitor kidney function Underlying history of hypertension Underlying history of hypothyroidism Chronic tobacco use patient smokes up to 2 packs per day Persistent atrial fibrillation with controlled heart rate patient has been switched to oral anticoagulation with eliquis At this time patient is admitted to intensive care unit Pulmonary, vascular surgery, and cardiology consultation requested Patient started on IV antibiotics, IV a Remdesevir, IV steroids and inhaled bronchodilators Medication and labs reviewed will follow closely Prognosis is guarded due to severity of illness
[2022-01-26 16:45] LABS: Glucose,Whole Blood 152 mg/dL (70-110)
--- NOTE | 2022-01-26 16:56 | P.PN ---
Subjective Progress Note Date: 01/26/22 This is a 76-year-old female who is not a great historian, her daughter is at bedside, patient is known to have history of hypothyroidism, COPD, history generalized anxiety disorder, patient has been weak for the last few days. According to the daughter, patient fell 4 days ago, and has been complaining of pain to her buttocks. Patient also had some intermittent cough, shortness of breath, and according to the daughter the patient has not been taking her medications including her thyroid medicine and her Combivent for COPD. Patient is a heavy smoker, she smoked 2 packs a day for many years. Does not use oxygen at home. Workup in the ER included a CBC which showed leukocytosis. Elevated d-dimer of 3.94. Abnormal renal profile with a BUN of 76 creatinine of 1.92 and low sodium of 129, elevated BNP level of 2580, normal troponin, and normal liver enzymes. Patient was also noted to have positive PCR for COVID-19, chest x-ray showed multifocal reticular markings and multifocal atypical infiltrates. Possible underlying pulmonary fibrosis. No old x-ray for comparison. Patient was also noted to be relatively hypotensive requiring fluid boluses with slight improvement of the blood pressure. On 01/23/2022, the patient is being seen for a follow-up. The patient got transferred to the intensive care unit overnight because of hypotension. The patient is currently in the intensive care unit. Noted the patient was in the ICU initially for hypoxic respiratory failure and the patient had high oxygen requirements and the patient was utilizing high flow oxygen at 55 L at one point . The patient gradually improved and the patient was transitioned to a telemetry unit where she was recovering. She is still requiring oxygen at 8 L per minute nasal cannula. Nevertheless, overnight, she became hypotensive and she required fluids and pressors. The patient was given a bolus of 1 L of normal saline. Currently she is on norepinephrine infusion which is running at 0.18 mcg/kg/m. Arterial line catheter was inserted for blood pressure monitoring. Meanwhile, sepsis workup was initiated and the patient developed a rise in a white cell count. The white cell count today is at 26.3. Based on that, cultures will be sent and the patient will be started on broad-spectrum antibiotics. Electrolytes are all within normal limits. Oxygenation remains stable and the patient denies having any worsening shortness of breath. She denies having any cough or sputum production. A repeat chest x-ray was done today and the patient was found to have evidence of some interstitial back up pulmonary infiltrates consistent with bilateral post Covid 19 infection/pneumonia versus edema. Noted the patient has a preserved LV function with an ejection fraction is essentially within normal limits and this is based on echocardiogram that was done on 01/09/2022 that showed a ejection fraction of 55% without any significant valvular abnormalities. The patient has no central lines. No denies vomiting or diarrhea or abdominal pain. No skin rashes. No altered mentation. No headaches. Ultrasound the gallbladder showed large gallstones in the neck of the gallbladder without evidence of any acute cholecystitis. 01/24/2022, the patient the patient is septic and the patient is still on pressors. She is afebrile. Nevertheless, her pro-calcitonin level was elevated and the level was at 3.89. At the same time, the patient had a possible culture with gram-positive cocci in pairs and chains. Vancomycin was added features are again IV cefepime. The white cell count remains elevated and the patient has a WBC count of 27.5. The patient is currently on norepinephrine which is running in the rate of 0.12 mcg/kg/m. The patient is also on IV fluids at 100 mL an hour of normal saline. The patient has a stage II sacral decub ulcer which does not look to be infected. The patient has some swelling over the right hip and the right hip joint is quite painful to passive range of motion. There is some erythema and warmth at the level of the right upper lateral thigh. As such, s eptic joint is also being suspected. Clinically, the patient is unchanged compared to yesterday. She remains on 8 L of oxygen by nasal cannula. The chest x-ray from today still showing bilateral pulmonary infiltrates and background COPD. No nausea. No vomiting. She has large gallstones without evidence of any cholecystitis. No altered mentation. Her appetite is weak. Her oral intake is quite diminished. She has a normal left ventricular ejection fraction. 01/25/2022, the patient is still in the intensive care unit for septic shock. The patient obviously decompensated the patient became hypotensive and for that reason the patient got transferred to the intensive care unit. She was having elevated pro-calcitonin level, elevated white count and she was also hypotensive. Septic workup was done. The patient's blood culture came back positive for strep group B and the urine culture came back positive for gram- negative bacillus. The patient is currently covered with IV cefepime. The patient received IV fluids and hemodynamically she is doing better and the patient's pressor requirements improved considerably and currently she is only at 0.06 mcg/kg/m of norepinephrine infusion. I'm hopeful that this will be further weaned on today's evaluation. Meanwhile, the patient remains on normal saline at the rate of 100 mL an hour. She is on O2 at 6 L/m. The exact source of the strep infection is not known. I was suspecting a septic joint. CAT scan of the right hip was done and showed no acute abnormalities. No evidence of any hematoma formation or septic joint or abscess formation. The patient's echoes down to 20 with a hemoglobin of 8.4 and a platelet count of 165. BUN is 18 with a creatinine of 0.4 and a sodium level is at 134 with a potassium level of 3.6. Note that the gram-negative in the urine could be potentially a colonizer as the patient's UA was essentially benign. She is. She is alert. She is quite hard of hearing and she is able to communicate. No signs of any significant respiratory distress for now. Overall condition is stable. Respiratory status is also stable. Chest x-ray was repeated and the findings are essentially stable at this point in time. 01/26/2022, the patient is on room air oxygen. Doing extremely well. She is on no pressors for now. IV antibiotics and was switched to Rocephin 2 g every 24 hours. The patient had Streptococcus in the blood. E. coli was also found in the urine. She is tolerating her diet. No nausea. No vomiting. No chest pain. No other complaints otherwise. She is on 10 mg of prednisone for now. No other significant event over the past 24 hours and this been significant impr ovement in her condition degenerative. Objective - Vital Signs Vital signs: Vital Signs Temp 98.3 F 01/26/22 16:00 Pulse 80 01/26/22 16:40 Resp 19 01/26/22 16:00 BP 114/71 01/26/22 10:15 Pulse Ox 94 L 01/26/22 16:00 FiO2 60 01/13/22 16:00 Intake & Output 01/25/22 01/26/22 01/26/22 18:59 06:59 18:59 Intake Total 8064.871 3598.476 1789.155 Output Total 2350 1774 2024 Balance -617.505 -280.524 -235.845 Weight 82.1 kg Intake: IV 1436 1336 1130 Cefepime 2 gm In Sodium 200 100 100 Chloride 0.9% 100 ml @ 25 mls/hr IVPB Q8HR [facility] Rx# :[id number] Sodium Chloride 0.9% 1, 1200 1200 1000 000 ml @ 100 mls/hr IV . Q10H [facility] Rx#:[id number] pressure bag 36 36 30 Intake, IV Titration 76.495 158.476 44.155 Amount Norepinephrine 8 mg In 76.495 158.476 44.155 Sodium Chloride 0.9% 250 ml @ 0.03 MCG/KG/MIN 4. 203 mls/hr IV .Q24H [facility] Rx#:[id number] Oral 220 615 Output: Urine 2350 1774 2024 Other: Voiding Method Indwelling Catheter Indwelling Catheter Indwelling Catheter ABP, PAP, CO, CI - Last Documented Arterial Blood Pressure 104/40 - Exam GENERAL EXAM: Alert, frail, 76-year-old female, on room air oxygen comfortable in no apparent distress. HEAD: Normocephalic. EYES: Normal reaction of pupils, equal size. NOSE: Clear with pink turbinates. THROAT: No erythema or exudates. NECK: No masses, no JVD. CHEST: No chest wall deformity. LUNGS: Equal air entry with crackles in the bilateral bases. CVS: S1 and S2 normal with no audible murmur, irregular rhythm. ABDOMEN: No hepatosplenomegaly, normal bowel sounds, no guarding or rigidity. SPINE: No scoliosis or deformity SKIN: No rashes. Ecchymosis of the lower lumbar sacral area due to previous fall CENTRAL NERVOUS SYSTEM: No focal deficits, tone is normal in all 4 extremities. EXTREMITIES: There is no peripheral edema. No clubbing, no cyanosis. Peripheral pulses are intact. - Labs CBC & Chem 7: 01/26/22 06:08 01/26/22 06:08 Labs: Abnormal Lab Results - Last 24 Hours (Table) 01/25/22 01/26/22 01/26/22 Range/Units 20:17 06:08 06:08 RBC 2.89 L (3.80-5.40) m/uL Hgb 8.2 L (11.4-16.0) gm/dL Hct 25.1 L (34.0-46.0) % RDW 16.3 H (11.5-15.5) % Sodium 135 L (137-145) mmol/L BUN 18 H (7-17) mg/dL Creatinine 0.37 L (0.52-1.04) mg/dL POC Glucose (mg/dL) 156 H (70-110) mg/dL Calcium 7.0 L (8.4-10.2) mg/dL AST 12 L (14-36) U/L Total Protein 3.8 L (6.3-8.2) g/dL Albumin 1.7 L (3.5-5.0) g/dL 01/26/22 01/26/22 Range/Units 11:54 16:44 RBC (3.80-5.40) m/uL Hgb (11.4-16.0) gm/dL Hct (34.0-46.0) % RDW (11.5-15.5) % Sodium (137-145) mmol/L BUN (7-17) mg/dL Creatinine (0.52-1.04) mg/dL POC Glucose (mg/dL) 145 H 152 H (70-110) mg/dL Calcium (8.4-10.2) mg/dL AST (14-36) U/L Total Protein (6.3-8.2) g/dL Albumin (3.5-5.0) g/dL Microbiology - Last 24 Hours (Table) 01/23/22 10:59 Blood Culture Gram Stain - Final Blood Blood Culture - Final Strep agalactiae - (group b) 01/25/22 05:05 Blood Culture - Preliminary Blood No Growth after 24 hours Assessment and Plan Plan: Acute hypoxic respiratory failure secondary to a pulmonary fibrosis addition to a Covid 19 pneumonia. Patient could've also had a pulmonary embolism based on CT of the chest as well as done on 01/18/2022. The patient was requiring high amount of oxygen initially BiPAP and later on high flow oxygen and currently is down to room air oxygen Acute sepsis with Streptococcus. Exact source is not clear. The skin versus soft tissue as the patient has a stage II ones in her sacrum. Otherwise, no other clear-cut identifiable source of an infection. Hemodynamically stable and the pressor requirements improved significantly.the patient is currently off pressors Gram-negative in the urine, likely colonization. UA was benign.the final culture came back positive E. coli Pulmonary fibrosis and chronic hypoxic respiratory failure Severe pulmonary hypertension with RV systolic pressure of 74, questionable RV thrombus Acute Hypotension, secondary to sepsis/septic shock. It is currently on that investigation. The patient got transferred to the ICU because of acute hypotension and acute leukocytosis. The patient is currently on pressors and the patient on norepinephrine infusion and sepsis workup is in progress. Gallstones without evidence of any cholecystitis Normal left ventricular ejection fraction without evidence of any heart failure COPD History of chronic smoking History of hypothyroidism. History of generalized anxiety disorder . Acute dehydration, resolved. Acute kidney injury, recovered Paroxysmal atrial fibrillation DNR/DNI Plan Continue IV Rocephin 2 g every 24 hours No pressors for now Oxygenation is improved change IV fluids to 40 mL an hour Chest x-ray was noted Continue the prednisone burst taper, currently on 10 mg We'll continue to follow Patient can be transferred out of the intensive care unit
[2022-01-26 21:34] LABS: Glucose,Whole Blood 138 mg/dL (70-110)
[2022-01-26] MEDS: risperiDONE 2 MG TAB PO SCH (21:34)
--- NOTE | 2022-01-27 07:14 | XR ---
EXAMINATION TYPE: XR chest 1V portable DATE OF EXAM: 01/27/2022 5:51 AM COMPARISON: Chest radiograph from one day prior. TECHNIQUE: XR chest 1V portable Portable AP radiograph of the chest. CLINICAL INDICATION:Female, 77 years old with history of Shortness of breath; FINDINGS: Lungs/Pleura: Similar multifocal airspace opacities. Similar blunting of the costophrenic angles No e vidence of pneumothorax. Pulmonary vascularity: Unremarkable. Heart/mediastinum: Cardiomediastinal silhouette is unremarkable. Musculoskeletal: No acute osseous pathology. Lines/Tubes: Left internal jugular central venous catheter with distal tip at the cavoatrial junction. IMPRESSION: 1. Similar multifocal airspace opacities. 2. Bilateral trace pleural effusions. 3.
[2022-01-27] MEDS: INSULIN ASPART (NovoLOG) 100 UNIT/ML VIAL SQ SCH ×4 (07:21→21:08)
[2022-01-27 07:22] LABS: Glucose,Whole Blood 90 mg/dL (70-110)
[2022-01-27 08:10] LABS: Anisocytosis Slight; Basophils % (A) 0 %; Eosinophils # (A) 0.3 k/uL (0-0.7); Eosinophils % (A) 4 %; HCT 24.8 % (34.0-46.0); HGB 8.3 gm/dL (11.4-16.0); Hypochromasia Slight; Lymphocytes # (A) 0.9 k/uL (1.0-4.8); Lymphocytes % (A) 12 %; MCH 28.9 pg (25.0-35.0); MCHC 33.4 g/dL (31.0-37.0); MCV 86.6 fL (80.0-100.0); Mean Platelet Volume 8.1; Monocytes # (A) 0.4 k/uL (0-1.0); Monocytes % (A) 6 %; Neutrophils # (A) 5.6 k/uL (1.3-7.7); Neutrophils % (A) 77 %; Platelet Count 175 k/uL (150-450); RBC 2.86 m/uL (3.80-5.40); RDW 16.5 % (11.5-15.5); WBC 7.3 k/uL (3.8-10.6)
[2022-01-27] MEDS: LEVOTHYROXINE 88 MCG TAB PO SCH (08:17)
[2022-01-27 08:24] LABS: ALT 13 U/L (4-34); AST 15 U/L (14-36); African American GFR (CKD) >90 (>60 ml/min/1.73 sqM); Albumin 1.8 g/dL (3.5-5.0); Alkaline Phosphatase 69 U/L (38-126); Anion Gap -2 mmol/L; Blood Urea Nitrogen 17 mg/dL (7-17); Calcium 7.1 mg/dL (8.4-10.2); Carbon Dioxide 29 mmol/L (22-30); Chloride 106 mmol/L (98-107); Glucose 71 mg/dL (74-99); Magnesium 1.9 mg/dL (1.6-2.3); Non-African American GFR(CKD) >90 (>60 ml/min/1.73 sqM); Potassium 3.6 mmol/L (3.5-5.1); Sodium 133 mmol/L (137-145); Total Bilirubin 0.4 mg/dL (0.2-1.3)
[2022-01-27] MEDS: SYMBICORT 160-4.5 MCG INHALER INHALATION SCH ×2 (09:22→20:17)
[2022-01-27] MEDS: IPRATROPIUM-ALBUTEROL 3 ML NEB INHALATION SCH ×4 (09:22→20:17)
[2022-01-27] MEDS: CITALOPRAM HYDROBROMIDE 10 MG TAB PO SCH (09:51)
[2022-01-27] MEDS: APIXABAN 5 MG TAB PO SCH ×2 (09:51→21:08)
[2022-01-27] MEDS: CHOLECALCIFEROL 25 MCG (1000 IU) TABLET PO SCH (09:51)
[2022-01-27] MEDS: ASCORBIC ACID 500 MG TAB PO SCH ×2 (09:51→21:08)
[2022-01-27] MEDS: predniSONE 10 MG TAB PO SCH (09:51)
[2022-01-27] MEDS: PANTOPRAZOLE 40 MG/10 ML VIAL IV SCH (09:52)
[2022-01-27] MEDS: LACTULOSE 20 GM/30 ML CUP PO SCH (09:52)
[2022-01-27] MEDS: ZINC SULFATE 220 MG CAP PO SCH (09:52)
--- NOTE | 2022-01-27 10:01 | P.PN ---
Subjective Progress Note Date: 01/27/22 Samantha Brown, is a 76-year-old female who presented to [facility] emergency room with a chief complaint of generalized weakness, patient's daughter reported in the emergency room that her mother had a fall 4 days prior to presentation She was evaluated in the emergency room vital examination on presentation revealed Laboratory data revealed a white blood count of 14.4 hemoglobin 12.2 platelet count 476 INR 1.2 d-dimer 3.94 sodium 129 potassium 5.1 chloride 99 CO2 23 BUN 76 creatinine 1.92 lactic acid 1.7 Corps on a virus PCR was positive Testing in the emergency room revealed chest x-ray done in emergency room revealed small bilateral pleural effusions and multifocal areas of increased reticular markings, EKG revealed atrial fibrillation with a heart rate of 86 Patient was admitted to medical floor for further evaluation and treatment. Past medical history is significant for history of hypertension, history of hyperlipidemia, history of hypothyroidism, and history of tobacco use patient smokes 2 packs per day On 01/08/2022 patient was seen and examined in the ICU she is alert responsive in mild distress due to shortness of breath, she was started on BiPAP during the night, she is maintained on norepinephrine for pressure support, she is also maintained on IV antibiotic Zosyn, input from cardiology and pulmonary review, patient's daughter Pily contacted over the phone and all questions answered to her satisfaction. On 01/09/2022 patient remains in the intensive care unit slightly improved. Patient remains on BiPAP. Creatinine improving to 1.41 bun 63. Patient remains on IV heparin. Patient also remains on sodium bicarb current vital signs heart rate 88, respiratory rate 19, blood pressure 108/51 patient satting 93% on BiPAP 40% FiO2. On 01/10/2022 patient was seen and examined in the ICU she is alert responsive in no apparent distress she is maintained on BiPAP, she is stating that her shortness of breath is improving she denies any chest pain there is no nausea or vomiting no abdominal pain no diarrhea and no urinary symptoms, however white blood count is 11 hemoglobin 10.8, BUN 60 creatinine 1.12 On 01/11/2022 patient was seen and examined in the ICU she is alert responsive in no apparent distress BiPAP was discontinued and patient was started on Airvo high flow oxygen she is still maintained on levophed for pressure support and this is being weaned down gradually. White blood count is down today to 7.5 BUN down to 45 creatinine 0.83 patient denies any chest pain or shortness of breath is improving, she is receiving IV antibiotic Zosyn she is also receiving Remdesevir for Covid-19 On 01/12/22, patient was seen and examined in the ICU, she is alert and oriented x 3, patient remains on airvo 55% FiO2, chest x-ray is showing some worsening today with interstitial infiltrates, possible interstitial edema. She remains on Decadron, she is also on eliquis, and she is on Zosyn. patient is still requiring norepinephrine On 01/13/2022 patient remains in the intensive care unit. Patient did require higher levels of irritable last night per nursing staff but is back down to 55%. Steroids were increased per pulmonary and critical care. Current vital signs temp 98.6, heart rate 75, respiratory rate 23, blood pressure 107/71 patient currently on 60% airflow satting 98% On 01/14/2022 patient was seen and examined in the ICU she is alert and oriented 3 in no apparent distress she is still maintained on high flow oxygen there is no fever or chills no headache or dizziness no chest pain she has occasional cough no nausea or vomiting no abdominal pain no diarrhea no blood in the stools, no urinary symptoms Wren catheter is in. On 01/15/2022 patient was seen and examined in the ICU she is alert and responsive in no apparent distress she is maintained on high flow oxygen at 15 L/m via nasal cannula there is no fever or chills no headache or dizziness no chest pain she has shortness of breath with any activity and occasional cough no nausea or vomiting no abdominal pain no diarrhea and no urinary symptoms is ma intained on IV Zosyn inhaled bronchodilators, inhaled steroids, and Eliquis, she is off pressure support at this time On 01/16/2022 patient remains in the intensive care unit. Patient remains on high flow 15 L. Patient remains off pressure support medication at this time. Current vital signs temp 97.7 heart rate 57, respiratory rate 17, blood pressure 100/62 sitting 90% on 15 L. On 01/17/2022 patient was seen and examined in the ICU, she is alert and oriented 3 in no apparent distress, she is still maintained on high flow oxygen at 15 L/m, she denies any chest pain, there is no fever or chills no headache or dizziness she has occasional cough no nausea or vomiting no abdominal pain no diarrhea and no urinary symptoms. Patient has poor oral intake, I was contacted today by the dietitian who recommended tube feeding due to patient consuming less then 25% of her meals, tube feeding was discussed in details with patient and at this time she is refusing, she stated that she will work on eating more of her meals. Nutrition supplements will be admitted On 01/18/2022 patient was seen and examined in the ICU, she is alert and oriented 3. Patient is weaning down in oxygen demand patient currently on high flow nasal cannula 10 L. Current vital signs temp 97.4, heart rate 78, res piratory rate 14, blood pressure 98/51. On 01/19/2022 patient was seen and examined on the telemetry floor she is alert and oriented in no apparent distress, she is sitting up in a chair, she is main tained on oxygen at 10 L via high flow nasal cannula, she is denying any complaints at this time there is no fever or chills no headache or dizziness no chest pain no shortness of breath at rest no cough no nausea or vomiting no abdominal pain no diarrhea no blood in the stools no burning with urination no frequency or urgency and no hematuria. She is still having severe weakness and is only able to pivot from her bed to her chair, physical therapy and occupational therapy are consulted, patient was encouraged to increase her oral intake. On 01/20/2022 patient was seen and examined on the medical floor she is alert and oriented 3 in no apparent distress she is still maintained on oxygen at 8 L via nasal cannula, she is feeling better, there is no fever or chills no headache or dizziness no chest pain no shortness of breath at rest she has occasional cough no nausea or vomiting no abdominal pain no diarrhea no blood in the stools no burning with urination no frequency or urgency and no hematuria, physical therapy and occupational therapy are consulted, patient was encouraged to increase her oral intake. On 01/21/2022 patient was seen and examined on the medical floor she is alert and oriented 3 in no distress she is still complaining of shortness of breath with any activity she is maintained on oxygen at 8 L via nasal cannula otherwise she denies any complaints there is no fever or chills no headache or dizziness no chest pain, she has occasional cough no nausea or vomiting no abdominal pain no diarrhea and no urinary symptoms. Patient was seen by physical therapy and occupational therapy she remains very weak a consultation for Dr. Art was initiated for possible rehab admission. On 01/22/2022 patient was seen and examined on the medical floor she is alert and oriented 3 in no distress there is no fever or chills no headache or dizziness no chest pain no cough no nausea or vomiting no abdominal pain no diarrhea and no urinary symptoms she is still complaining of shortness of breath and generalized weakness she is still requiring 8 L of oxygen per minutes, oxygen is being weaned down gradually she would be transferred [facility] in the next 1-2 days for rehab On 01/23/2022 patient was seen and examined in the ICU last night patient had low blood pressure she was given 2 boluses of normal saline 500 mL, however her blood pressure continued to decline and was down to 75/38 patient was transferred to intensive care unit and was started on IV levophed she was evaluated this morning by critical care and was started on IV cefepime. Currently she is stable in ICU she denies any complaints. On 01/24/2022 patient was seen and examined in the ICU she is alert and oriented 3 in no apparent distress she is answering questions appropriately she denies any complaints at this time yesterday she was transferred to ICU due to hypotension, today she is feeling better she is still maintained on levophed she is also maintained on IV antibiotics cefepime. On 01/25/2022 patient was seen and examined in the ICU she is alert and oriented in no distress she is answering questions appropriately she denies any complaints at this time yesterday she was transferred to ICU due to hypotension, today she is feeling better she is still maintained on levophed she is also maintained on IV antibiotics cefepime. She is complaining of constipation otherwise she denies any complaints. On 01/26/2022 patient was seen and examined in the ICU she is alert and oriented in no distress, she denies any complaints at this time yesterday she was transferred to ICU due to hypotension, today she is feeling better she is still maintained on levophed she is also maintained on IV antibiotics ceftriaxon. She is off oxygen at this time and saturating at 92% 01/27/2022 patient is alert and oriented 3 currently sitting up in chair in the intensive care unit. Per nursing staff patient has been off the Levophed this a.m. did require temporarily last night. Patient has been ordered for the ICU awaiting bed placement. Current vital signs temp 98.1, heart rate 87, respiratory rate 12, blood pressure 94/53 satting 95% on 2 L nasal cannula Objective - Vital Signs Vital signs: Vital Signs Temp 98.1 F 01/27/22 08:00 Pulse 81 01/27/22 09:00 Resp 12 01/27/22 09:00 BP 94/53 01/27/22 09:00 Pulse Ox 94 L 01/27/22 09:20 FiO2 60 01/13/22 16:00 Intake & Output 01/26/22 01/27/22 01/27/22 18:59 06:59 18:59 Intake Total 2245.155 1533 370 Output Total 2375 2390 840 Balance -129.845 -857 -470 Weight 83.2 kg Intake: IV 1336 483 120 Cefepime 2 gm In Sodium 100 Chloride 0.9% 100 ml @ 25 mls/hr IVPB Q8HR RAD[facility] Rx# :[id number] Sodium Chloride 0.9% 1, 1200 480 120 000 ml @ 40 mls/hr IV . Q24H [facility]HA Rx#:[id number] pressure bag 36 3 Intake, IV Titration 44.155 Amount Norepinephrine 8 mg In 44.155 Sodium Chloride 0.9% 250 ml @ 0.03 MCG/KG/MIN 4. 203 mls/hr IV .Q24H [facility]HA Rx#:[id number] Oral 865 1050 250 Output: Urine 2375 2390 840 Other: Voiding Method Indwelling Catheter Indwelling Catheter ABP, PAP, CO, CI - Last Documented Arterial Blood Pressure 99/39 - Exam In general patient is alert responsive maintained on on oxygen via high flow nasal cannula HEENT head normocephalic and atraumatic Neck is supple no JVD no goiter no lymphadenopathy no carotid bruit Chest examination reveals a scattered crackles bilaterally with mild wheezing Cardiac exam reveals regular heart sounds S1 and S2 no gallops no murmurs Abdomen is soft nontender no organomegaly with normal bowel sounds Extremity exam reveals no edema no cyanosis or clubbing, poor pulses peripherally Neurological examination reveals no gross focal deficits - Labs CBC & Chem 7: 01/27/22 07:23 01/27/22 07:23 Labs: Abnormal Lab Results - Last 24 Hours (Table) 01/26/22 01/26/22 01/26/22 Range/Units 11:54 16:44 21:32 RBC (3.80-5.40) m/uL Hgb (11.4-16.0) gm/dL Hct (34.0-46.0) % RDW (11.5-15.5) % Lymphocytes # (1.0-4.8) k/uL Sodium (137-145) mmol/L Creatinine (0.52-1.04) mg/dL Glucose (74-99) mg/dL POC Glucose (mg/dL) 145 H 152 H 138 H (70-110) mg/dL Calcium (8.4-10.2) mg/dL Total Protein (6.3-8.2) g/dL Albumin (3.5-5.0) g/dL 01/27/22 01/27/22 Range/Units 07:23 07:23 RBC 2.86 L (3.80-5.40) m/uL Hgb 8.3 L (11.4-16.0) gm/dL Hct 24.8 L (34.0-46.0) % RDW 16.5 H (11.5-15.5) % Lymphocytes # 0.9 L (1.0-4.8) k/uL Sodium 133 L (137-145) mmol/L Creatinine 0.48 L (0.52-1.04) mg/dL Glucose 71 L (74-99) mg/dL POC Glucose (mg/dL) (70-110) mg/dL Calcium 7.1 L (8.4-10.2) mg/dL Total Protein 4.0 L (6.3-8.2) g/dL Albumin 1.8 L (3.5-5.0) g/dL Microbiology - Last 24 Hours (Table) 01/25/22 05:05 Blood Culture - Preliminary Blood No Growth after 48 hours 01/23/22 10:59 Blood Culture Gram Stain - Final Blood Blood Culture - Final Strep agalactiae - (group b) Assessment and Plan Plan: Acute hypoxic respiratory failure, improving patient transferred out of ICU. Acute coronary 19 pneumonia Underlying history of chronic obstructive pulmonary disease Sepsis as evidenced by leukocytosis, tachycardia, mild elevation in lactic acid and hypotension Elevated d-dimer Acute kidney injury possibly related to dehydration and prerenal azotemia, will monitor kidney function Underlying history of hypertension Underlying history of hypothyroidism Chronic tobacco use patient smokes up to 2 packs per day Persistent atrial fibrillation with controlled heart rate patient has been switched to oral anticoagulation with eliquis At this time patient is admitted to intensive care unit Pulmonary, vascular surgery, and cardiology consultation requested Patient started on IV antibiotics, IV a Remdesevir, IV steroids and inhaled bronchodilators Medication and labs reviewed will follow closely Prognosis is guarded due to severity of illness
[2022-01-27] MEDS ORDERED: Potassium Replacement Protocol 1 EACH MISC MISCELLANE PRN (10:48)
[2022-01-27] MEDS ORDERED: POTASSIUM CHLORIDE ER 20 MEQ TAB.ER PO SCH (11:00)
[2022-01-27 11:22] LABS: Glucose,Whole Blood 123 mg/dL (70-110)
--- NOTE | 2022-01-27 13:37 | P.PN ---
Subjective Progress Note Date: 01/27/22 This is a 76-year-old female who is not a great historian, her daughter is at bedside, patient is known to have history of hypothyroidism, COPD, history generalized anxiety disorder, patient has been weak for the last few days. According to the daughter, patient fell 4 days ago, and has been complaining of pain to her buttocks. Patient also had some intermittent cough, shortness of breath, and according to the daughter the patient has not been taking her medications including her thyroid medicine and her Combivent for COPD. Patient is a heavy smoker, she smoked 2 packs a day for many years. Does not use oxygen at home. Workup in the ER included a CBC which showed leukocytosis. Elevated d-dimer of 3.94. Abnormal renal profile with a BUN of 76 creatinine of 1.92 and low sodium of 129, elevated BNP level of 2580, normal troponin, and normal liver enzymes. Patient was also noted to have positive PCR for COVID-19, chest x-ray showed multifocal reticular markings and multifocal atypical infiltrates. Possible underlying pulmonary fibrosis. No old x-ray for comparison. Patient was also noted to be relatively hypotensive requiring fluid boluses with slight improvement of the blood pressure. On 01/23/2022, the patient is being seen for a follow-up. The patient got transferred to the intensive care unit overnight because of hypotension. The patient is currently in the intensive care unit. Noted the patient was in the ICU initially for hypoxic respiratory failure and the patient had high oxygen requirements and the patient was utilizing high flow oxygen at 55 L at one point . The patient gradually improved and the patient was transitioned to a telemetry unit where she was recovering. She is still requiring oxygen at 8 L per minute nasal cannula. Nevertheless, overnight, she became hypotensive and she required fluids and pressors. The patient was given a bolus of 1 L of normal saline. Currently she is on norepinephrine infusion which is running at 0.18 mcg/kg/m. Arterial line catheter was inserted for blood pressure monitoring. Meanwhile, sepsis workup was initiated and the patient developed a rise in a white cell count. The white cell count today is at 26.3. Based on that, cultures will be sent and the patient will be started on broad-spectrum antibiotics. Electrolytes are all within normal limits. Oxygenation remains stable and the patient denies having any worsening shortness of breath. She denies having any cough or sputum production. A repeat chest x-ray was done today and the patient was found to have evidence of some interstitial back up pulmonary infiltrates consistent with bilateral post Covid 19 infection/pneumonia versus edema. Noted the patient has a preserved LV function with an ejection fraction is essentially within normal limits and this is based on echocardiogram that was done on 01/09/2022 that showed a ejection fraction of 55% without any significant valvular abnormalities. The patient has no central lines. No denies vomiting or diarrhea or abdominal pain. No skin rashes. No altered mentation. No headaches. Ultrasound the gallbladder showed large gallstones in the neck of the gallbladder without evidence of any acute cholecystitis. 01/24/2022, the patient the patient is septic and the patient is still on pressors. She is afebrile. Nevertheless, her pro-calcitonin level was elevated and the level was at 3.89. At the same time, the patient had a possible culture with gram-positive cocci in pairs and chains. Vancomycin was added features are again IV cefepime. The white cell count remains elevated and the patient has a WBC count of 27.5. The patient is currently on norepinephrine which is running in the rate of 0.12 mcg/kg/m. The patient is also on IV fluids at 100 mL an hour of normal saline. The patient has a stage II sacral decub ulcer which does not look to be infected. The patient has some swelling over the right hip and the right hip joint is quite painful to passive range of motion. There is some erythema and warmth at the level of the right upper lateral thigh. As such, s eptic joint is also being suspected. Clinically, the patient is unchanged compared to yesterday. She remains on 8 L of oxygen by nasal cannula. The chest x-ray from today still showing bilateral pulmonary infiltrates and background COPD. No nausea. No vomiting. She has large gallstones without evidence of any cholecystitis. No altered mentation. Her appetite is weak. Her oral intake is quite diminished. She has a normal left ventricular ejection fraction. 01/25/2022, the patient is still in the intensive care unit for septic shock. The patient obviously decompensated the patient became hypotensive and for that reason the patient got transferred to the intensive care unit. She was having elevated pro-calcitonin level, elevated white count and she was also hypotensive. Septic workup was done. The patient's blood culture came back positive for strep group B and the urine culture came back positive for gram- negative bacillus. The patient is currently covered with IV cefepime. The patient received IV fluids and hemodynamically she is doing better and the patient's pressor requirements improved considerably and currently she is only at 0.06 mcg/kg/m of norepinephrine infusion. I'm hopeful that this will be further weaned on today's evaluation. Meanwhile, the patient remains on normal saline at the rate of 100 mL an hour. She is on O2 at 6 L/m. The exact source of the strep infection is not known. I was suspecting a septic joint. CAT scan of the right hip was done and showed no acute abnormalities. No evidence of any hematoma formation or septic joint or abscess formation. The patient's echoes down to 20 with a hemoglobin of 8.4 and a platelet count of 165. BUN is 18 with a creatinine of 0.4 and a sodium level is at 134 with a potassium level of 3.6. Note that the gram-negative in the urine could be potentially a colonizer as the patient's UA was essentially benign. She is. She is alert. She is quite hard of hearing and she is able to communicate. No signs of any significant respiratory distress for now. Overall condition is stable. Respiratory status is also stable. Chest x-ray was repeated and the findings are essentially stable at this point in time. 01/26/2022, the patient is on room air oxygen. Doing extremely well. She is on no pressors for now. IV antibiotics and was switched to Rocephin 2 g every 24 hours. The patient had Streptococcus in the blood. E. coli was also found in the urine. She is tolerating her diet. No nausea. No vomiting. No chest pain. No other complaints otherwise. She is on 10 mg of prednisone for now. No other significant event over the past 24 hours and this been significant impr ovement in her condition degenerative. Clonidine 2021, the patient is doing well and the patient remains on room air oxygen. Some borderline hypotension is noted whenever she sleeps. Yet she remains asymptomatic. She is producing excellent amount of urine output and she is mobilizing excess fluid as the patient has exhibited edema in all 4 extremities. Overall respiratory status is stable. Afebrile. Remains on IV Rocephin. On the blood work, the white cell count is at 7.3 with a hemoglobin of 8.3 and a platelet count of 175. Sodium is at 133 with a BUN of 17 and a creatinine of 0.4. Tolerating diet. No altered mentation. Objective - Vital Signs Vital signs: Vital Signs Temp 98.1 F 01/27/22 08:00 Pulse 86 01/27/22 10:00 Resp 18 01/27/22 10:00 BP 94/64 01/27/22 10:00 Pulse Ox 97 01/27/22 10:00 FiO2 60 01/13/22 16:00 Intake & Output 01/26/22 01/27/22 01/27/22 18:59 06:59 18:59 Intake Total 2245.155 1533 370 Output Total 2375 2390 840 Balance -129.845 -857 -470 Weight 83.2 kg Intake: IV 1336 483 120 Cefepime 2 gm In Sodium 100 Chloride 0.9% 100 ml @ 25 mls/hr IVPB Q8HR [facility] Rx# :[id number] Sodium Chloride 0.9% 1, 1200 480 120 000 ml @ 40 mls/hr IV . Q24H [facility] Rx#:[id number] pressure bag 36 3 Intake, IV Titration 44.155 Amount Norepinephrine 8 mg In 44.155 Sodium Chloride 0.9% 250 ml @ 0.03 MCG/KG/MIN 4. 203 mls/hr IV .Q24H [facility] Rx#:[id number] Oral 865 1050 250 Output: Urine 2375 2390 840 Other: Voiding Method Indwelling Catheter Indwelling Catheter ABP, PAP, CO, CI - Last Documented Arterial Blood Pressure 99/39 - Exam GENERAL EXAM: Alert, frail, 76-year-old female, on room air oxygen comfortable in no apparent distress. HEAD: Normocephalic. EYES: Normal reaction of pupils, equal size. NOSE: Clear with pink turbinates. THROAT: No erythema or exudates. NECK: No masses, no JVD. CHEST: No chest wall deformity. LUNGS: Equal air entry with crackles in the bilateral bases. CVS: S1 and S2 normal with no audible murmur, irregular rhythm. ABDOMEN: No hepatosplenomegaly, normal bowel sounds, no guarding or rigidity. SPINE: No scoliosis or deformity SKIN: No rashes. Ecchymosis of the lower lumbar sacral area due to previous fall CENTRAL NERVOUS SYSTEM: No focal deficits, tone is normal in all 4 extremities. EXTREMITIES: There is no peripheral edema. No clubbing, no cyanosis. Peripheral pulses are intact. - Labs CBC & Chem 7: 01/27/22 07:23 01/27/22 07:23 Labs: Abnormal Lab Results - Last 24 Hours (Table) 01/26/22 01/26/22 01/26/22 Range/Units 11:54 16:44 21:32 RBC (3.80-5.40) m/uL Hgb (11.4-16.0) gm/dL Hct (34.0-46.0) % RDW (11.5-15.5) % Lymphocytes # (1.0-4.8) k/uL Sodium (137-145) mmol/L Creatinine (0.52-1.04) mg/dL Glucose (74-99) mg/dL POC Glucose (mg/dL) 145 H 152 H 138 H (70-110) mg/dL Calcium (8.4-10.2) mg/dL Total Protein (6.3-8.2) g/dL Albumin (3.5-5.0) g/dL 01/27/22 01/27/22 Range/Units 07:23 07:23 RBC 2.86 L (3.80-5.40) m/uL Hgb 8.3 L (11.4-16.0) gm/dL Hct 24.8 L (34.0-46.0) % RDW 16.5 H (11.5-15.5) % Lymphocytes # 0.9 L (1.0-4.8) k/uL Sodium 133 L (137-145) mmol/L Creatinine 0.48 L (0.52-1.04) mg/dL Glucose 71 L (74-99) mg/dL POC Glucose (mg/dL) (70-110) mg/dL Calcium 7.1 L (8.4-10.2) mg/dL Total Protein 4.0 L (6.3-8.2) g/dL Albumin 1.8 L (3.5-5.0) g/dL Microbiology - Last 24 Hours (Table) 01/25/22 05:05 Blood Culture - Preliminary Blood No Growth after 48 hours 01/23/22 10:59 Blood Culture Gram Stain - Final Blood Blood Culture - Final Strep agalactiae - (group b) Assessment and Plan Plan: Acute hypoxic respiratory failure secondary to a pulmonary fibrosis addition to a Covid 19 pneumonia. Patient could've also had a pulmonary embolism based on CT of the chest as well as done on 01/18/2022. The patient was requiring high amount of oxygen initially BiPAP and later on high flow oxygen and currently is down to room air oxygen Acute sepsis with Streptococcus. Exact source is not clear. The skin versus soft tissue as the patient has a stage II ones in her sacrum. Otherwise, no other clear-cut identifiable source of an infection. Hemodynamically stable and the pressor requirements improved significantly.the patient is currently off pressors, the patient is producing adequate urine output. The patient remains off pressors. Gram-negative in the urine, likely colonization. UA was benign.the final culture came back positive E. coli Pulmonary fibrosis and chronic hypoxic respiratory failure Severe pulmonary hypertension with RV systolic pressure of 74, questionable RV thrombus Acute Hypotension, secondary to sepsis/septic shock. It is currently on that investigation. The patient got transferred to the ICU because of acute hypotension and acute leukocytosis. The patient is currently on pressors and the patient on norepinephrine infusion and sepsis workup is in progress. Gallstones without evidence of any cholecystitis Normal left ventricular ejection fraction without evidence of any heart failure COPD History of chronic smoking History of hypothyroidism. History of generalized anxiety disorder . Acute dehydration, resolved. Acute kidney injury, recovered Paroxysmal atrial fibrillation DNR/DNI Plan No need for diuresis Patient is mobilizing excess fluid and the patient is an excellent urine output Continue IV Rocephin 2 g every 24 hours No pressors for now Oxygenation is improved change IV fluids KVO Chest x-ray was noted Continue the prednisone burst taper, currently on 10 mg We'll continue to follow Patient can be transferred out of the intensive care unit
[2022-01-27] MEDS: ACETAMINOPHEN TAB 325 MG TAB PO PRN (15:25)
[2022-01-27 16:35] LABS: Glucose,Whole Blood 135 mg/dL (70-110)
[2022-01-27 21:02] LABS: Glucose,Whole Blood 168 mg/dL (70-110)
[2022-01-27] MEDS: risperiDONE 2 MG TAB PO SCH (21:08)
--- NOTE | 2022-01-27 21:10 | P.PN ---
Subjective Progress Note Date: 01/27/22 Principal diagnosis: Sacral wound Patient is a 76-year old female with multiple comorbidities including COPD current 2 pack smoker hypothyroidism presented to the hospital with weakness patient also have a fall landed on her gluteal area and has developed a deep tissue injury to the sacral area and tested positive for COVID-19. On today's evaluation that is 01/27/2022 the patient continues to be afebrile, patient is breathing comfortably on room air, the patient denies chest pain, the patient did have occasional dry cough no nausea no vomiting no abdominal pain or diarrhea Objective - Vital Signs Vital signs: Vital Signs Temp 98 F 01/27/22 12:00 Pulse 105 H 01/27/22 14:00 Resp 13 01/27/22 14:00 BP 105/78 01/27/22 14:00 Pulse Ox 92 L 01/27/22 14:00 FiO2 60 01/13/22 16:00 Intake & Output 01/26/22 01/27/22 01/27/22 18:59 06:59 18:59 Intake Total 2245.155 1533 860 Output Total 2375 2390 1675 Balance -129.845 -857 -815 Weight 83.2 kg Intake: IV 1336 483 160 Cefepime 2 gm In Sodium 100 Chloride 0.9% 100 ml @ 25 mls/hr IVPB Q8HR [facility] Rx# :[id number] Sodium Chloride 0.9% 1, 1200 480 160 000 ml @ 40 mls/hr IV . Q24H [facility] Rx#:[id number] pressure bag 36 3 Intake, IV Titration 44.155 Amount Norepinephrine 8 mg In 44.155 Sodium Chloride 0.9% 250 ml @ 0.03 MCG/KG/MIN 4. 203 mls/hr IV .Q24H [facility] Rx#:[id number] Oral 865 1050 700 Output: Urine 2375 2390 1675 Other: Voiding Method Indwelling Catheter Indwelling Catheter Indwelling Catheter ABP, PAP, CO, CI - Last Documented Arterial Blood Pressure 99/39 - Exam GENERAL DESCRIPTION: An elderly female lying in bed in no distress RESPIRATORY SYSTEM: Unlabored breathing , decreased breath sounds at bases HEART: S1 S2 regular rate and rhythm , ABDOMEN: Soft , no tenderness EXTREMITIES: Right hip area did have swelling and minimal erythema but no open wound or any drainage Sacral pressure ulcer is currently dressed - Labs CBC & Chem 7: 01/27/22 07:23 01/27/22 17:00 Labs: Abnormal Lab Results - Last 24 Hours (Table) 01/26/22 01/26/22 01/27/22 Range/Units 16:44 21:32 07:23 RBC 2.86 L (3.80-5.40) m/uL Hgb 8.3 L (11.4-16.0) gm/dL Hct 24.8 L (34.0-46.0) % RDW 16.5 H (11.5-15.5) % Lymphocytes # 0.9 L (1.0-4.8) k/uL Sodium (137-145) mmol/L Creatinine (0.52-1.04) mg/dL Glucose (74-99) mg/dL POC Glucose (mg/dL) 152 H 138 H (70-110) mg/dL Calcium (8.4-10.2) mg/dL Total Protein (6.3-8.2) g/dL Albumin (3.5-5.0) g/dL 01/27/22 01/27/22 Range/Units 07:23 11:20 RBC (3.80-5.40) m/uL Hgb (11.4-16.0) gm/dL Hct (34.0-46.0) % RDW (11.5-15.5) % Lymphocytes # (1.0-4.8) k/uL Sodium 133 L (137-145) mmol/L Creatinine 0.48 L (0.52-1.04) mg/dL Glucose 71 L (74-99) mg/dL POC Glucose (mg/dL) 123 H (70-110) mg/dL Calcium 7.1 L (8.4-10.2) mg/dL Total Protein 4.0 L (6.3-8.2) g/dL Albumin 1.8 L (3.5-5.0) g/dL Microbiology - Last 24 Hours (Table) 01/25/22 05:05 Blood Culture - Preliminary Blood No Growth after 48 hours 01/23/22 10:59 Blood Culture Gram Stain - Final Blood Blood Culture - Final Strep agalactiae - (group b) Assessment and Plan (1) COVID-19 Current Visit: Yes Status: Acute Code(s): U07.1 - COVID-19 SNOMED Code(s): 489912663 (2) Pressure ulcer of sacral region, stage 2 Current Visit: Yes Status: Acute Code(s): L89.152 - PRESSURE ULCER OF SACRAL REGION, STAGE 2 SNOMED Code(s): 49798649051578 Plan: 1patient with leukocytosis and hypotension requiring transfer to the ICU, chest x-ray has been mostly pulmonary edemain change, patient did have elevated white count and blood culture now showing Streptococcus agalactiae which usually of skin and soft tissue origin patient did have some swelling and erythema to the right hip with no evidence of any fracture or abscess , repeat blood culture has been negative 2urine cultures with an E. coli which is a sensitive pathogen 3-the patient will continue with Rocephin 2 g daily that will cover for both pathogen Time with Patient: Less than 30
[2022-01-28] MEDS: ACETAMINOPHEN TAB 325 MG TAB PO PRN (02:19)
[2022-01-28 06:22] LABS: Anisocytosis Slight; Basophils % (A) 0 %; Eosinophils # (A) 0.3 k/uL (0-0.7); Eosinophils % (A) 5 %; HCT 24.9 % (34.0-46.0); HGB 8.2 gm/dL (11.4-16.0); Hypochromasia Slight; Lymphocytes % (A) 15 %; MCH 28.4 pg (25.0-35.0); MCHC 32.7 g/dL (31.0-37.0); MCV 86.8 fL (80.0-100.0); Mean Platelet Volume 8.3; Monocytes # (A) 0.4 k/uL (0-1.0); Monocytes % (A) 6 %; Neutrophils # (A) 4.8 k/uL (1.3-7.7); Neutrophils % (A) 73 %; Platelet Count 190 k/uL (150-450); RBC 2.87 m/uL (3.80-5.40); RDW 16.6 % (11.5-15.5); WBC 6.6 k/uL (3.8-10.6)
[2022-01-28 06:42] LABS: ALT 15 U/L (4-34); AST 18 U/L (14-36); African American GFR (CKD) >90 (>60 ml/min/1.73 sqM); Albumin 1.8 g/dL (3.5-5.0); Alkaline Phosphatase 69 U/L (38-126); Anion Gap -2 mmol/L; Blood Urea Nitrogen 19 mg/dL (7-17); Calcium 7.2 mg/dL (8.4-10.2); Carbon Dioxide 29 mmol/L (22-30); Chloride 105 mmol/L (98-107); Glucose 67 mg/dL (74-99); Non-African American GFR(CKD) >90 (>60 ml/min/1.73 sqM); Potassium 3.9 mmol/L (3.5-5.1); Sodium 132 mmol/L (137-145); Total Bilirubin 0.2 mg/dL (0.2-1.3)
[2022-01-28] MEDS: INSULIN ASPART (NovoLOG) 100 UNIT/ML VIAL SQ SCH ×4 (06:53→20:40)
[2022-01-28 06:54] LABS: Glucose,Whole Blood 86 mg/dL (70-110)
[2022-01-28] MEDS: LEVOTHYROXINE 75 MCG TAB PO SCH (06:54)
[2022-01-28] MEDS: IPRATROPIUM-ALBUTEROL 3 ML NEB INHALATION SCH ×4 (08:35→19:36)
[2022-01-28] MEDS: SYMBICORT 160-4.5 MCG INHALER INHALATION SCH ×2 (08:35→19:34)
--- NOTE | 2022-01-28 09:08 | XR ---
EXAMINATION TYPE: XR chest 1V portable DATE OF EXAM: 01/28/2022 COMPARISON: 01/27/2022 HISTORY: Shortness of breath TECHNIQUE: Single frontal view of the chest is obtained. FINDINGS: Views interstitial pattern with bilateral infiltrate and pleural effusion. Left-sided PICC line seen. There is no pneumothorax. Diffuse osteopenia. Heart size normal. Underlying COPD suspecte d. IMPRESSION: 1. Bilateral pleural effusion and infiltrates superimposed on a background of COPD. Correlate for pne umonia otherwise consider CHF.
[2022-01-28] MEDS: CHOLECALCIFEROL 25 MCG (1000 IU) TABLET PO SCH (10:31)
[2022-01-28] MEDS: ASCORBIC ACID 500 MG TAB PO SCH ×2 (10:31→20:55)
[2022-01-28] MEDS: APIXABAN 5 MG TAB PO SCH ×2 (10:31→20:55)
[2022-01-28] MEDS: LACTULOSE 20 GM/30 ML CUP PO SCH (10:31)
[2022-01-28] MEDS: ZINC SULFATE 220 MG CAP PO SCH (10:32)
[2022-01-28] MEDS: PANTOPRAZOLE 40 MG/10 ML VIAL IV SCH (10:32)
[2022-01-28] MEDS: CITALOPRAM HYDROBROMIDE 10 MG TAB PO SCH (10:32)
[2022-01-28] MEDS: predniSONE 10 MG TAB PO SCH (10:32)
[2022-01-28 11:11] LABS: Glucose,Whole Blood 129 mg/dL (70-110)
--- NOTE | 2022-01-28 12:49 | P.PN ---
Subjective Progress Note Date: 01/28/22 Principal diagnosis: Sacral wound Patient is a 76-year old female with multiple comorbidities including COPD current 2 pack smoker hypothyroidism presented to the hospital with weakness patient also have a fall landed on her gluteal area and has developed a deep tissue injury to the sacral area and tested positive for COVID-19. On today's evaluation that is 01/28/2022 the patient remains to be afebrile, patient is breathing comfortably on room air, the patient denies chest pain, the patient did have a mild dry cough, denies nausea no vomiting no abdominal pain or diarrhea Objective - Vital Signs Vital signs: Vital Signs Temp 98.6 F 01/28/22 08:00 Pulse 79 01/28/22 08:00 Resp 16 01/28/22 08:00 BP 100/55 01/28/22 08:00 Pulse Ox 97 01/28/22 08:00 FiO2 60 01/13/22 16:00 Intake & Output 01/27/22 01/28/22 01/28/22 18:59 06:59 18:59 Intake Total 1300 1450 480 Output Total 2455 2655 1100 Balance -1155 -1205 -620 Weight 82.2 kg Intake: IV 160 Sodium Chloride 0.9% 1, 160 000 ml @ 40 mls/hr IV . Q24H [facility] Rx#:[id number] Oral 1140 1450 480 Output: Urine 2455 2655 1100 Other: Voiding Method Indwelling Catheter Indwelling Catheter ABP, PAP, CO, CI - Last Documented Arterial Blood Pressure 99/39 - Exam GENERAL DESCRIPTION: An elderly female lying in bed in no distress RESPIRATORY SYSTEM: Unlabored breathing , decreased breath sounds at bases HEART: S1 S2 regular rate and rhythm , ABDOMEN: Soft , no tenderness EXTREMITIES: Right hip area did have swelling and minimal erythema but no open wound or any drainage Sacral pressure ulcer is currently dressed - Labs CBC & Chem 7: 01/28/22 05:34 01/28/22 05:34 Labs: Abnormal Lab Results - Last 24 Hours (Table) 01/27/22 01/27/22 01/28/22 Range/Units 16:34 21:01 05:34 RBC 2.87 L (3.80-5.40) m/uL Hgb 8.2 L (11.4-16.0) gm/dL Hct 24.9 L (34.0-46.0) % RDW 16.6 H (11.5-15.5) % Sodium (137-145) mmol/L BUN (7-17) mg/dL Creatinine (0.52-1.04) mg/dL Glucose (74-99) mg/dL POC Glucose (mg/dL) 135 H 168 H (70-110) mg/dL Calcium (8.4-10.2) mg/dL Total Protein (6.3-8.2) g/dL Albumin (3.5-5.0) g/dL 01/28/22 01/28/22 Range/Units 05:34 11:10 RBC (3.80-5.40) m/uL Hgb (11.4-16.0) gm/dL Hct (34.0-46.0) % RDW (11.5-15.5) % Sodium 132 L (137-145) mmol/L BUN 19 H (7-17) mg/dL Creatinine 0.45 L (0.52-1.04) mg/dL Glucose 67 L (74-99) mg/dL POC Glucose (mg/dL) 129 H (70-110) mg/dL Calcium 7.2 L (8.4-10.2) mg/dL Total Protein 4.0 L (6.3-8.2) g/dL Albumin 1.8 L (3.5-5.0) g/dL Microbiology - Last 24 Hours (Table) 01/25/22 05:05 Blood Culture - Preliminary Blood No Growth after 72 hours Assessment and Plan (1) COVID-19 Current Visit: Yes Status: Acute Code(s): U07.1 - COVID-19 SNOMED Code(s): 595199904 (2) Pressure ulcer of sacral region, stage 2 Current Visit: Yes Status: Acute Code(s): L89.152 - PRESSURE ULCER OF SACRAL REGION, STAGE 2 SNOMED Code(s): 45371603377916 Plan: 1patient with leukocytosis and hypotension requiring transfer to the ICU, chest x-ray has been mostly pulmonary edemain change, patient did have elevated white count and blood culture now showing Streptococcus agalactiae which usually of skin and soft tissue origin patient did have some swelling and erythema to the right hip with no evidence of any fracture or abscess , repeat blood culture has been negative 2urine cultures with an E. coli which is a sensitive pathogen 3-the patient seemed to have a short-leg improvement will continue with Rocephin 2 g daily while inpatient finishing therapy with short course of oral Ceftin Time with Patient: Less than 30
--- NOTE | 2022-01-28 14:14 | P.PN ---
Subjective Progress Note Date: 01/21/22 Principal diagnosis: Acute hypoxic resource failure secondary to COVID-19 pneumonia This is a 76-year-old female who is not a great historian, her daughter is at bedside, patient is known to have history of hypothyroidism, COPD, history generalized anxiety disorder, patient has been weak for the last few days. According to the daughter, patient fell 4 days ago, and has been complaining of pain to her buttocks. Patient also had some intermittent cough, shortness of breath, and according to the daughter the patient has not been taking her medications including her thyroid medicine and her Combivent for COPD. Patient is a heavy smoker, she smoked 2 packs a day for many years. Does not use oxygen at home. Workup in the ER included a CBC which showed leukocytosis. Elevated d-dimer of 3.94. Abnormal renal profile with a BUN of 76 creatinine of 1.92 and low sodium of 129, elevated BNP level of 2580, normal troponin, and normal liver enzymes. Patient was also noted to have positive PCR for COVID-19, chest x-ray showed multifocal reticular markings and multifocal atypical infiltrates. Possible underlying pulmonary fibrosis. No old x-ray for comparison. Patient was also noted to be relatively hypotensive requiring fluid boluses with slight improvement of the blood pressure. I saw this patient in the ER, and I recommended admitting the patient to the ICU. In the meantime I ordered a high- resolution CT of the chest, started the patient on Remdesivir, patient is on 6 L nasal cannula, recommended fluid boluses, empiric antibiotics, pro-calcitonin level is pending, and order the COVID-19 cocktail. Reevaluated today on 01/08/22, patient remains in the ICU, her condition became a bit worse overnight, patient had to be placed on BiPAP, and she is now on BiPAP FiO2 of 50% IPAP 16 and EPAP of 6 I was able to cut down her FiO2 to 45% and her IPAP 10-14 EPAP remains at 6. Patient is requiring norepinephrine for low blood pressure, hence this is clearly a presentation of septic shock. Patient is requiring norepinephrine at 0.38 mcg/kg/m, her IV fluid went down to KVO after she received 4 L of fluids last night, felt that the patient was over hydrated, and her urine output picked up last night and I was notified about her worsening pulmonary status recommended Lasix dose earlier today with good response to the Lasix. Her creatinine is improving when down from 1.92-1.70 today. Bicarb remains low at 14 on him recommending a bicarb drip. Today I was able to establish a triple-lumen catheter and arterial line and the patient, her pro calcitonin was noted to be high at 5.47, patient was initially placed on vancomycin and Zosyn, blood cultures are negative so far, I'm recommending that we continue Zosyn, discontinue vancomycin, and recommending infectious disease consultation. I'm also recommending a CT of the lumbosacral spine since the patient has significant area of ecchymosis in the buttock area and low back. Apparently she fell 4 days ago. And she had significant amount of pain. The ER physician ordered a thoracic spine CT but did not address the lumbar spine area which seems to be the area of pain and the area of trauma. Patient remains on the COVID-19 cocktail. And I started the patient yesterday on Remdesivir. Since her symptoms were recent within the therapeutic window. WBC count is 20.2 hemoglobin is 12.5. Electrodes are normal except elevated potassium and that will improve with bicarbonate drip. Renal profile as noted earlier. Pro- calcitonin level is very high at 5.47 Reevaluated today on , patient remains in the ICU, remains on BiPAP, FiO2 40%, IPAP of 14 EPAP of 6. Remains on small dose of norepinephrine at 0.1 mcg/kg/m, patient remains on bicarb drip, I cut it down to 25 mL per hour today. Yesterday she had ultrasound of the gallbladder showing mostly cholelithiasis but no cholecystitis. Patient had negative CT of the lumbar spine. Remains on Zosyn empirically since her pro calcitonin level was quite high. She has better urine output, 35-50 mL per hour. Planning today to change from BiPAP possibly to airvo. Planning to gently diurese the patient, her chest x-ray is not mera wing much of a change in her bilateral interstitial infiltrates, and again I strongly suspect ongoing interstitial lung disease. WBC count 14.8 hemoglobin is 10.6, PTT is 73.7, patient remains on heparin. Basic metabolic profile is normal, BUN is 63 and creatinine 1.41. Reevaluated today on 01/10/22, patient remains in the ICU, remains on BiPAP, she is on 40% FiO2 IPAP of 12 EPAP of 5 Reed seems to be comfortable, and not in distress. Feeling better. Remains on heparin and she remains on norepinephrine at 0.1 mcg/kg/m. Today I am changes heparin to eliquis which she took on outpatient basis. Chest x-ray continues to show interstitial lung disease and interstitial infiltrates. Clinically the patient is feeling better. Her renal functioning is almost back to normal. Continues to have good urine output with diuresis. BUN is down to 60 creatinine is down to 1.12 patient remains on Remdesivir she remains on the COVID-19 cocktail. Reevaluated today on 01/11/22 patient remains in the ICU, she is now on airvo S 50% FiO2 and 60 L flow, saturating in the mid 90s, patient is still requiring norepinephrine at 0.12 mcg/kg/m. Remains on her day #5 of Remdesivir, she is also on Decadron, eliquis, and multivitamins, patient is also on Zosyn for empiric treatment of superimposed bacterial infection/pneumonia considering that her pro calcitonin level was quite high on admission. Overall clinically the patient is improving but very slowly. WBC count is 7.5 hemoglobin is 10.7. E lectrodes are normal renal profile is basically back to normal her creatinine is now 0.83. Reevaluated today on 02/08/22, patient remains in the ICU, remains relatively critically ill, patient is still requiring norepinephrine at 0.08 mcg/kg/m, patient remains on airvo at 55 L and 55% FiO2, chest x-ray is showing some worsening today with interstitial infiltrates, possible interstitial edema, hen ce I recommended a dose of Lasix 40 mg IV push, and the patient had significant urine output after the Lasix given. She remains on Decadron, she is also on eliquis, and she is on Zosyn. Her echocardiogram showed good LV function, however I am planning to keep the patient on the dry side considering her underlying COVID-19 pneumonia and her underlying interstitial lung disease. WBC count is 9 hemoglobin is 10.8 electrolytes are normal renal profile is normal, blood cultures remain negative. Pro-calcitonin level on admission was elevated. Reevaluated today on 01/13/22, patient remains in the ICU, remains critically ill, she remains on high flow oxygen via airflow, she is on 60% FiO2 and 60 L flow. Patient doesn't respond to diuretics quite well, however her chest x-ray is not showing much improvement, I strongly believe that we are dealing with COVID-19 pneumonia along with interstitial lung disease/pulmonary fibrosis. Not much of a change in the last 24 hours, patient is still on antibiotics empirically because of her pro calcitonin level was elevated, she is still on diuretics as needed, she still requiring norepinephrine at 0.05 mcg/kg/m. Patient remains marginal at best, and I have no plans to transfer the patient out of the ICU at this point yet. She may eventually require a PICC line placement she does have a central access test present but needs to be changed to a PICC line. Reevaluated today on 01/28/22, patient remains in the ICU as an overflow, she seems to be doing better, has shown significant improvement nonetheless the patient has been in the hospital since 01/07/22. Remains on bronchodilators, antibiotics, steroids, and has been gradually improving, she does have possibly some interstitial lung disease in addition to her COVID-19 pneumonia, she also had a pressure ulcer of sacrum region, blood cultures did show evidence of Streptococcus agalactiae, which is normally skin sae and skin origin. Repeat blood cultures have been negative. Her urine showed E. coli which is being treated,, infectious disease on the case he had labs today are basically unremarkable except for low hemoglobin of 8.2, she had normal electrolytes normal renal profile. Patient remains on Rocephin. Objective - Vital Signs Vital signs: Vital Signs Temp 98.6 F 01/28/22 08:00 Pulse 79 01/28/22 08:00 Resp 16 01/28/22 08:00 BP 100/55 01/28/22 08:00 Pulse Ox 97 01/28/22 08:00 FiO2 60 01/13/22 16:00 Intake & Output 01/27/22 01/28/22 01/28/22 18:59 06:59 18:59 Intake Total 1300 1450 480 Output Total 2455 2655 1100 Balance -1155 -1205 -620 Weight 82.2 kg Intake: IV 160 Sodium Chloride 0.9% 1, 160 000 ml @ 40 mls/hr IV . Q24H [facility] Rx#:[id number] Oral 1140 1450 480 Output: Urine 2455 2655 1100 Other: Voiding Method Indwelling Catheter Indwelling Catheter ABP, PAP, CO, CI - Last Documented Arterial Blood Pressure 99/39 - Exam Physical Exam: Revealed 76-year-old female in no distress, on 2 L nasal cannula Head: Atraumatic, normocephalic. HEENT:[Neck is supple.] [No neck masses.] [No thyromegaly.] [No JVD.] Dry mucous membranes. Chest: [Symmetrical chest expansion, minimal fine crackles at the bases Cardiac Exam: [Normal S1 and S2, no S3 gallop, no murmur.] Abdomen: [Soft, nontender, no megaly, no rebound, no guarding, normal bowel sounds.] Extremities: [No clubbing, no edema, no cyanosis.] Neurological Exam: [No focal neurologic deficit.] Alert oriented 3, she seems to be generally weak. Psychiatric: Normal mood, affect and normal mental status examination. Skin: Lumbosacral's area ecchymosis from recent fall. Musculoskeletal: No deformities and no limitation of range of motion - Labs CBC & Chem 7: 01/28/22 05:34 01/28/22 05:34 Labs: Abnormal Lab Results - Last 24 Hours (Table) 01/27/22 01/27/22 01/28/22 Range/Units 16:34 21:01 05:34 RBC 2.87 L (3.80-5.40) m/uL Hgb 8.2 L (11.4-16.0) gm/dL Hct 24.9 L (34.0-46.0) % RDW 16.6 H (11.5-15.5) % Sodium (137-145) mmol/L BUN (7-17) mg/dL Creatinine (0.52-1.04) mg/dL Glucose (74-99) mg/dL POC Glucose (mg/dL) 135 H 168 H (70-110) mg/dL Calcium (8.4-10.2) mg/dL Total Protein (6.3-8.2) g/dL Albumin (3.5-5.0) g/dL 01/28/22 01/28/22 Range/Units 05:34 11:10 RBC (3.80-5.40) m/uL Hgb (11.4-16.0) gm/dL Hct (34.0-46.0) % RDW (11.5-15.5) % Sodium 132 L (137-145) mmol/L BUN 19 H (7-17) mg/dL Creatinine 0.45 L (0.52-1.04) mg/dL Glucose 67 L (74-99) mg/dL POC Glucose (mg/dL) 129 H (70-110) mg/dL Calcium 7.2 L (8.4-10.2) mg/dL Total Protein 4.0 L (6.3-8.2) g/dL Albumin 1.8 L (3.5-5.0) g/dL Microbiology - Last 24 Hours (Table) 01/25/22 05:05 Blood Culture - Preliminary Blood No Growth after 72 hours Assessment and Plan Assessment: Impression: Acute hypoxic respiratory failure secondary to acute COVID-19 pneumonia, pulmonary embolism, and possible underlying interstitial lung disease Possible interstitial lung disease/pulmonary fibrosis E. coli urinary tract infection, patient is on Rocephin as per infectious disease on the case. Severe pulmonary hypertension right-sided pressures in the range of 74 Gallstones without cholecystitis Hypotension, secondary to sepsis/septic shock and hypovolemia on presentation History of underlying COPD does not seem to be active at this point. But likely contributing to her hypoxic respiratory failure History of hypothyroidism History of generalized anxiety disorder Acute dehydration Acute kidney injury secondary to dehydration Paroxysmal atrial fibrillation Recommendation: Continue present supportive care measures Continue antibiotics/Rocephin Continue oxygen and titrate accordingly Keep IV fluid at KVO No need for diuretics at this point. Continue tapering of prednisone Continue bronchodilators Continue GI and DVT prophylaxis Transferred out of the ICU to a regular medical floor once a bed is available Consider placement in rehab Time with Patient: Less than 30
[2022-01-28] MEDS ORDERED: POTASSIUM CHLORIDE ER 20 MEQ TAB.ER PO SCH (17:00)
--- NOTE | 2022-01-28 18:10 | P.PN ---
Subjective Progress Note Date: 01/28/22 Samantha Brown, is a 76-year-old female who presented to [facility] emergency room with a chief complaint of generalized weakness, patient's daughter reported in the emergency room that her mother had a fall 4 days prior to presentation She was evaluated in the emergency room vital examination on presentation revealed Laboratory data revealed a white blood count of 14.4 hemoglobin 12.2 platelet count 476 INR 1.2 d-dimer 3.94 sodium 129 potassium 5.1 chloride 99 CO2 23 BUN 76 creatinine 1.92 lactic acid 1.7 Corps on a virus PCR was positive Testing in the emergency room revealed chest x-ray done in emergency room revealed small bilateral pleural effusions and multifocal areas of increased reticular markings, EKG revealed atrial fibrillation with a heart rate of 86 Patient was admitted to medical floor for further evaluation and treatment. Past medical history is significant for history of hypertension, history of hyperlipidemia, history of hypothyroidism, and history of tobacco use patient smokes 2 packs per day On 01/08/2022 patient was seen and examined in the ICU she is alert responsive in mild distress due to shortness of breath, she was started on BiPAP during the night, she is maintained on norepinephrine for pressure support, she is also maintained on IV antibiotic Zosyn, input from cardiology and pulmonary review, patient's daughter Pily contacted over the phone and all questions answered to her satisfaction. On 01/09/2022 patient remains in the intensive care unit slightly improved. Patient remains on BiPAP. Creatinine improving to 1.41 bun 63. Patient remains on IV heparin. Patient also remains on sodium bicarb current vital signs heart rate 88, respiratory rate 19, blood pressure 108/51 patient satting 93% on BiPAP 40% FiO2. On 01/10/2022 patient was seen and examined in the ICU she is alert responsive in no apparent distress she is maintained on BiPAP, she is stating that her shortness of breath is improving she denies any chest pain there is no nausea or vomiting no abdominal pain no diarrhea and no urinary symptoms, however white blood count is 11 hemoglobin 10.8, BUN 60 creatinine 1.12 On 01/11/2022 patient was seen and examined in the ICU she is alert responsive in no apparent distress BiPAP was discontinued and patient was started on Airvo high flow oxygen she is still maintained on levophed for pressure support and this is being weaned down gradually. White blood count is down today to 7.5 BUN down to 45 creatinine 0.83 patient denies any chest pain or shortness of breath is improving, she is receiving IV antibiotic Zosyn she is also receiving Remdesevir for Covid-19 On 01/12/22, patient was seen and examined in the ICU, she is alert and oriented x 3, patient remains on airvo 55% FiO2, chest x-ray is showing some worsening today with interstitial infiltrates, possible interstitial edema. She remains on Decadron, she is also on eliquis, and she is on Zosyn. patient is still requiring norepinephrine On 01/13/2022 patient remains in the intensive care unit. Patient did require higher levels of irritable last night per nursing staff but is back down to 55%. Steroids were increased per pulmonary and critical care. Current vital signs temp 98.6, heart rate 75, respiratory rate 23, blood pressure 107/71 patient currently on 60% airflow satting 98% On 01/14/2022 patient was seen and examined in the ICU she is alert and oriented 3 in no apparent distress she is still maintained on high flow oxygen there is no fever or chills no headache or dizziness no chest pain she has occasional cough no nausea or vomiting no abdominal pain no diarrhea no blood in the stools, no urinary symptoms Wren catheter is in. On 01/15/2022 patient was seen and examined in the ICU she is alert and responsive in no apparent distress she is maintained on high flow oxygen at 15 L/m via nasal cannula there is no fever or chills no headache or dizziness no chest pain she has shortness of breath with any activity and occasional cough no nausea or vomiting no abdominal pain no diarrhea and no urinary symptoms is ma intained on IV Zosyn inhaled bronchodilators, inhaled steroids, and Eliquis, she is off pressure support at this time On 01/16/2022 patient remains in the intensive care unit. Patient remains on high flow 15 L. Patient remains off pressure support medication at this time. Current vital signs temp 97.7 heart rate 57, respiratory rate 17, blood pressure 100/62 sitting 90% on 15 L. On 01/17/2022 patient was seen and examined in the ICU, she is alert and oriented 3 in no apparent distress, she is still maintained on high flow oxygen at 15 L/m, she denies any chest pain, there is no fever or chills no headache or dizziness she has occasional cough no nausea or vomiting no abdominal pain no diarrhea and no urinary symptoms. Patient has poor oral intake, I was contacted today by the dietitian who recommended tube feeding due to patient consuming less then 25% of her meals, tube feeding was discussed in details with patient and at this time she is refusing, she stated that she will work on eating more of her meals. Nutrition supplements will be admitted On 01/18/2022 patient was seen and examined in the ICU, she is alert and oriented 3. Patient is weaning down in oxygen demand patient currently on high flow nasal cannula 10 L. Current vital signs temp 97.4, heart rate 78, res piratory rate 14, blood pressure 98/51. On 01/19/2022 patient was seen and examined on the telemetry floor she is alert and oriented in no apparent distress, she is sitting up in a chair, she is main tained on oxygen at 10 L via high flow nasal cannula, she is denying any complaints at this time there is no fever or chills no headache or dizziness no chest pain no shortness of breath at rest no cough no nausea or vomiting no abdominal pain no diarrhea no blood in the stools no burning with urination no frequency or urgency and no hematuria. She is still having severe weakness and is only able to pivot from her bed to her chair, physical therapy and occupational therapy are consulted, patient was encouraged to increase her oral intake. On 01/20/2022 patient was seen and examined on the medical floor she is alert and oriented 3 in no apparent distress she is still maintained on oxygen at 8 L via nasal cannula, she is feeling better, there is no fever or chills no headache or dizziness no chest pain no shortness of breath at rest she has occasional cough no nausea or vomiting no abdominal pain no diarrhea no blood in the stools no burning with urination no frequency or urgency and no hematuria, physical therapy and occupational therapy are consulted, patient was encouraged to increase her oral intake. On 01/21/2022 patient was seen and examined on the medical floor she is alert and oriented 3 in no distress she is still complaining of shortness of breath with any activity she is maintained on oxygen at 8 L via nasal cannula otherwise she denies any complaints there is no fever or chills no headache or dizziness no chest pain, she has occasional cough no nausea or vomiting no abdominal pain no diarrhea and no urinary symptoms. Patient was seen by physical therapy and occupational therapy she remains very weak a consultation for Dr. Art was initiated for possible rehab admission. On 01/22/2022 patient was seen and examined on the medical floor she is alert and oriented 3 in no distress there is no fever or chills no headache or dizziness no chest pain no cough no nausea or vomiting no abdominal pain no diarrhea and no urinary symptoms she is still complaining of shortness of breath and generalized weakness she is still requiring 8 L of oxygen per minutes, oxygen is being weaned down gradually she would be transferred to [facility] in the next 1-2 days for rehab On 01/23/2022 patient was seen and examined in the ICU last night patient had low blood pressure she was given 2 boluses of normal saline 500 mL, however her blood pressure continued to decline and was down to 75/38 patient was transferred to intensive care unit and was started on IV levophed she was evaluated this morning by critical care and was started on IV cefepime. Currently she is stable in ICU she denies any complaints. On 01/24/2022 patient was seen and examined in the ICU she is alert and oriented 3 in no apparent distress she is answering questions appropriately she denies any complaints at this time yesterday she was transferred to ICU due to hypotension, today she is feeling better she is still maintained on levophed she is also maintained on IV antibiotics cefepime. On 01/25/2022 patient was seen and examined in the ICU she is alert and oriented in no distress she is answering questions appropriately she denies any complaints at this time yesterday she was transferred to ICU due to hypotension, today she is feeling better she is still maintained on levophed she is also maintained on IV antibiotics cefepime. She is complaining of constipation otherwise she denies any complaints. On 01/26/2022 patient was seen and examined in the ICU she is alert and oriented in no distress, she denies any complaints at this time yesterday she was transferred to ICU due to hypotension, today she is feeling better she is still maintained on levophed she is also maintained on IV antibiotics ceftriaxon. She is off oxygen at this time and saturating at 92% 01/27/2022 patient is alert and oriented 3 currently sitting up in chair in the intensive care unit. Per nursing staff patient has been off the Levophed this a.m. did require temporarily last night. Patient has been ordered for the ICU awaiting bed placement. Current vital signs temp 98.1, heart rate 87, respiratory rate 12, blood pressure 94/53 satting 95% on 2 L nasal cannula On 01/28/2022 patient was seen and examined in the ICU she is alert and oriented in no distress, she denies any complaints at this time yesterday she was transferred to ICU due to hypotension, today she is feeling better she is still maintained on levophed she is also maintained on IV antibiotics ceftriaxon. She is off oxygen at this time and saturating at 92% today she is off Levophed, she can be transferred out of ICU possible discharge to rehab tomorrow Objective - Vital Signs Vital signs: Vital Signs Temp 98.6 F 01/28/22 08:00 Pulse 79 01/28/22 08:00 Resp 16 01/28/22 08:00 BP 100/55 01/28/22 08:00 Pulse Ox 97 01/28/22 08:00 FiO2 60 01/13/22 16:00 Intake & Output 01/27/22 01/28/22 01/28/22 18:59 06:59 18:59 Intake Total 1300 1450 480 Output Total 2455 2655 1100 Balance -1155 -1205 -620 Weight 82.2 kg Intake: IV 160 Sodium Chloride 0.9% 1, 160 000 ml @ 40 mls/hr IV . Q24H [facility] Rx#:[id number] Oral 1140 1450 480 Output: Urine 2455 2655 1100 Other: Voiding Method Indwelling Catheter Indwelling Catheter ABP, PAP, CO, CI - Last Documented Arterial Blood Pressure 99/39 - Exam In general patient is alert responsive maintained on on oxygen via high flow nasal cannula HEENT head normocephalic and atraumatic Neck is supple no JVD no goiter no lymphadenopathy no carotid bruit Chest examination reveals a scattered crackles bilaterally with mild wheezing Cardiac exam reveals regular heart sounds S1 and S2 no gallops no murmurs Abdomen is soft nontender no organomegaly with normal bowel sounds Extremity exam reveals no edema no cyanosis or clubbing, poor pulses peripherally Neurological examination reveals no gross focal deficits - Labs CBC & Chem 7: 01/28/22 05:34 01/28/22 05:34 Labs: Abnormal Lab Results - Last 24 Hours (Table) 01/27/22 01/27/22 01/28/22 Range/Units 16:34 21:01 05:34 RBC 2.87 L (3.80-5.40) m/uL Hgb 8.2 L (11.4-16.0) gm/dL Hct 24.9 L (34.0-46.0) % RDW 16.6 H (11.5-15.5) % Sodium (137-145) mmol/L BUN (7-17) mg/dL Creatinine (0.52-1.04) mg/dL Glucose (74-99) mg/dL POC Glucose (mg/dL) 135 H 168 H (70-110) mg/dL Calcium (8.4-10.2) mg/dL Total Protein (6.3-8.2) g/dL Albumin (3.5-5.0) g/dL 01/28/22 01/28/22 Range/Units 05:34 11:10 RBC (3.80-5.40) m/uL Hgb (11.4-16.0) gm/dL Hct (34.0-46.0) % RDW (11.5-15.5) % Sodium 132 L (137-145) mmol/L BUN 19 H (7-17) mg/dL Creatinine 0.45 L (0.52-1.04) mg/dL Glucose 67 L (74-99) mg/dL POC Glucose (mg/dL) 129 H (70-110) mg/dL Calcium 7.2 L (8.4-10.2) mg/dL Total Protein 4.0 L (6.3-8.2) g/dL Albumin 1.8 L (3.5-5.0) g/dL Microbiology - Last 24 Hours (Table) 01/25/22 05:05 Blood Culture - Preliminary Blood No Growth after 72 hours Assessment and Plan Plan: Acute hypoxic respiratory failure, improving patient transferred out of ICU. Acute coronary 19 pneumonia Underlying history of chronic obstructive pulmonary disease Sepsis as evidenced by leukocytosis, tachycardia, mild elevation in lactic acid and hypotension Elevated d-dimer Acute kidney injury possibly related to dehydration and prerenal azotemia, will monitor kidney function Underlying history of hypertension Underlying history of hypothyroidism Chronic tobacco use patient smokes up to 2 packs per day Persistent atrial fibrillation with controlled heart rate patient has been switched to oral anticoagulation with eliquis At this time patient is admitted to intensive care unit Pulmonary, vascular surgery, and cardiology consultation requested Patient started on IV antibiotics, IV a Remdesevir, IV steroids and inhaled bronchodilators Medication and labs reviewed will follow closely Prognosis is guarded due to severity of illness
[2022-01-28 18:27] LABS: Glucose,Whole Blood 164 mg/dL (70-110)
[2022-01-28 20:01] LABS: Glucose,Whole Blood 108 mg/dL (70-110)
[2022-01-28] MEDS: risperiDONE 2 MG TAB PO SCH (23:22)
[2022-01-29 06:02] LABS: Glucose,Whole Blood 85 mg/dL (70-110)
[2022-01-29] MEDS: INSULIN ASPART (NovoLOG) 100 UNIT/ML VIAL SQ SCH ×2 (06:11→11:56)
[2022-01-29] MEDS: LEVOTHYROXINE 88 MCG TAB PO SCH (06:16)
[2022-01-29] MEDS: LACTULOSE 20 GM/30 ML CUP PO SCH (08:48)
[2022-01-29] MEDS: APIXABAN 5 MG TAB PO SCH (08:48)
[2022-01-29] MEDS: predniSONE 10 MG TAB PO SCH (08:48)
[2022-01-29] MEDS: PANTOPRAZOLE 40 MG/10 ML VIAL IV SCH (08:48)
[2022-01-29] MEDS: CHOLECALCIFEROL 25 MCG (1000 IU) TABLET PO SCH (08:48)
[2022-01-29] MEDS: ZINC SULFATE 220 MG CAP PO SCH (08:48)
[2022-01-29] MEDS: ASCORBIC ACID 500 MG TAB PO SCH (08:48)
[2022-01-29] MEDS: CITALOPRAM HYDROBROMIDE 10 MG TAB PO SCH (08:48)
[2022-01-29] MEDS: SYMBICORT 160-4.5 MCG INHALER INHALATION SCH (08:59)
[2022-01-29] MEDS: IPRATROPIUM-ALBUTEROL 3 ML NEB INHALATION SCH (08:59)
[2022-01-29 09:20] VITALS: TEMP 97.5
--- NOTE | 2022-01-29 10:12 | P.DS ---
Providers Date of admission: 01/07/22 14:04 Expected date of discharge: 01/29/22 Attending physician: Gini Wayne Consults: 01/07/22 14:04 Consult Physician Stat Consulting Provider: Chandler Larson Consult Reason/Comments: ac Do you want consulting provider notified?: Yes 01/07/22 16:54 Consult Physician Routine Consulting Provider: Aj Guerrero Consult Reason/Comments: afib Do you want consulting provider notified?: Yes 01/08/22 09:14 Consult Physician Routine Consulting Provider: Rosetta Flores Consult Reason/Comments: Sacral wound Do you want consulting provider notified?: Yes 01/21/22 09:01 Consult Physician Routine Consulting Provider: Johnathan Art Consult Reason/Comments: physical debility Do you want consulting provider notified?: Yes Primary care physician: Elysia Van [facility] Course: Diagnosis on discharge: Acute hypoxic respiratory failure, improving patient transferred out of ICU. Acute coronary 19 pneumonia Underlying history of chronic obstructive pulmonary disease Sepsis as evidenced by leukocytosis, tachycardia, mild elevation in lactic acid and hypotension Elevated d-dimer Acute kidney injury possibly related to dehydration and prerenal azotemia, will monitor kidney function Underlying history of hypertension Underlying history of hypothyroidism Chronic tobacco use patient smokes up to 2 packs per day Persistent atrial fibrillation with controlled heart rate patient has been switched to oral anticoagulation with [facility] course: Samantha Brown, is a 76-year-old female who presented to [facility] emergency room with a chief complaint of generalized weakness, patient's daughter reported in the emergency room that her mother had a fall 4 days prior to presentation She was evaluated in the emergency room vital examination on presentation revealed Laboratory data revealed a white blood count of 14.4 hemoglobin 12.2 platelet count 476 INR 1.2 d-dimer 3.94 sodium 129 potassium 5.1 chloride 99 CO2 23 BUN 76 creatinine 1.92 lactic acid 1.7 Corps on a virus PCR was positive Testing in the emergency room revealed chest x-ray done in emergency room revealed small bilateral pleural effusions and multifocal areas of increased reticular markings, EKG revealed atrial fibrillation with a heart rate of 86 Patient was admitted to medical floor for further evaluation and treatment. Past medical history is significant for history of hypertension, history of hyperlipidemia, history of hypothyroidism, and history of tobacco use patient smokes 2 packs per day On 01/08/2022 patient was seen and examined in the ICU she is alert responsive in mild distress due to shortness of breath, she was started on BiPAP during the night, she is maintained on norepinephrine for pressure support, she is also maintained on IV antibiotic Zosyn, input from cardiology and pulmonary review, patient's daughter Pily contacted over the phone and all questions answered to her satisfaction. On 01/09/2022 patient remains in the intensive care unit slightly improved. Patient remains on BiPAP. Creatinine improving to 1.41 bun 63. Patient remains on IV heparin. Patient also remains on sodium bicarb current vital signs heart rate 88, respiratory rate 19, blood pressure 108/51 patient satting 93% on BiPAP 40% FiO2. On 01/10/2022 patient was seen and examined in the ICU she is alert responsive in no apparent distress she is maintained on BiPAP, she is stating that her shortness of breath is improving she denies any chest pain there is no nausea or vomiting no abdominal pain no diarrhea and no urinary symptoms, however white blood count is 11 hemoglobin 10.8, BUN 60 creatinine 1.12 On 01/11/2022 patient was seen and examined in the ICU she is alert responsive in no apparent distress BiPAP was discontinued and patient was started on Airvo high flow oxygen she is still maintained on levophed for pressure support and this is being weaned down gradually. White blood count is down today to 7.5 BUN down to 45 creatinine 0.83 patient denies any chest pain or shortness of breath is improving, she is receiving IV antibiotic Zosyn she is also receiving Remdesevir for Covid-19 On 01/12/22, patient was seen and examined in the ICU, she is alert and oriented x 3, patient remains on airvo 55% FiO2, chest x-ray is showing some worsening today with interstitial infiltrates, possible interstitial edema. She remains on Decadron, she is also on eliquis, and she is on Zosyn. patient is still requiring norepinephrine On 01/13/2022 patient remains in the intensive care unit. Patient did require higher levels of irritable last night per nursing staff but is back down to 55%. Steroids were increased per pulmonary and critical care. Current vital signs temp 98.6, heart rate 75, respiratory rate 23, blood pressure 107/71 patient currently on 60% airflow satting 98% On 01/14/2022 patient was seen and examined in the ICU she is alert and oriented 3 in no apparent distress she is still maintained on high flow oxygen there is no fever or chills no headache or dizziness no chest pain she has occasional cough no nausea or vomiting no abdominal pain no diarrhea no blood in the stools, no urinary symptoms Wren catheter is in. On 01/15/2022 patient was seen and examined in the ICU she is alert and responsive in no apparent distress she is maintained on high flow oxygen at 15 L/m via nasal cannula there is no fever or chills no headache or dizziness no chest pain she has shortness of breath with any activity and occasional cough no nausea or vomiting no abdominal pain no diarrhea and no urinary symptoms is maintained on IV Zosyn inhaled bronchodilators, inhaled steroids, and Eliquis, she is off pressure support at this time On 01/16/2022 patient remains in the intensive care unit. Patient remains on high flow 15 L. Patient remains off pressure support medication at this time. Current vital signs temp 97.7 heart rate 57, respiratory rate 17, blood pressure 100/62 sitting 90% on 15 L. On 01/17/2022 patient was seen and examined in the ICU, she is alert and oriented 3 in no apparent distress, she is still maintained on high flow oxygen at 15 L/m, she denies any chest pain, there is no fever or chills no headache or dizziness she has occasional cough no nausea or vomiting no abdominal pain no diarrhea and no urinary symptoms. Patient has poor oral intake, I was contacted today by the dietitian who recommended tube feeding due to patient consuming less then 25% of her meals, tube feeding was discussed in details with patient and at this time she is refusing, she stated that she will work on eating more of her meals. Nutrition supplements will be admitted On 01/18/2022 patient was seen and examined in the ICU, she is alert and oriented 3. Patient is weaning down in oxygen demand patient currently on high flow nasal cannula 10 L. Current vital signs temp 97.4, heart rate 78, respirat ory rate 14, blood pressure 98/51. On 01/19/2022 patient was seen and examined on the telemetry floor she is alert and oriented in no apparent distress, she is sitting up in a chair, she is maintained on oxygen at 10 L via high flow nasal cannula, she is denying any complaints at this time there is no fever or chills no headache or dizziness no chest pain no shortness of breath at rest no cough no nausea or vomiting no abdominal pain no diarrhea no blood in the stools no burning with urination no frequency or urgency and no hematuria. She is still having severe weakness and is only able to pivot from her bed to her chair, physical therapy and occupational therapy are consulted, patient was encouraged to increase her oral intake. On 01/20/2022 patient was seen and examined on the medical floor she is alert and oriented 3 in no apparent distress she is still maintained on oxygen at 8 L via nasal cannula, she is feeling better, there is no fever or chills no headache or dizziness no chest pain no shortness of breath at rest she has occasional cough no nausea or vomiting no abdominal pain no diarrhea no blood in the stools no burning with urination no frequency or urgency and no hematuria, physical therapy and occupational therapy are consulted, patient was encouraged to increase her oral intake. On 01/21/2022 patient was seen and examined on the medical floor she is alert and oriented 3 in no distress she is still complaining of shortness of breath with any activity she is maintained on oxygen at 8 L via nasal cannula otherwise she denies any complaints there is no fever or chills no headache or dizziness no chest pain, she has occasional cough no nausea or vomiting no abdominal pain no diarrhea and no urinary symptoms. Patient was seen by physical therapy and occupational therapy she remains very weak a consultation for Dr. Art was initiated for possible rehab admission. On 01/22/2022 patient was seen and examined on the medical floor she is alert and oriented 3 in no distress there is no fever or chills no headache or dizziness no chest pain no cough no nausea or vomiting no abdominal pain no diarrhea and no urinary symptoms she is still complaining of shortness of breath and generalized weakness she is still requiring 8 L of oxygen per minutes, oxygen is being weaned down gradually she would be transferred to snf in the next 1-2 days for rehab On 01/23/2022 patient was seen and examined in the ICU last night patient had low blood pressure she was given 2 boluses of normal saline 500 mL, however her blood pressure continued to decline and was down to 75/38 patient was transferred to intensive care unit and was started on IV levophed she was evaluated this morning by critical care and was started on IV cefepime. Currently she is stable in ICU she denies any complaints. On 01/24/2022 patient was seen and examined in the ICU she is alert and oriented 3 in no apparent distress she is answering questions appropriately she denies any complaints at this time yesterday she was transferred to ICU due to hypotension, today she is feeling better she is still maintained on levophed she is also maintained on IV antibiotics cefepime. On 01/25/2022 patient was seen and examined in the ICU she is alert and oriented in no distress she is answering questions appropriately she denies any complaints at this time yesterday she was transferred to ICU due to hypotension, today she is feeling better she is still maintained on levophed she is also maintained on IV antibiotics cefepime. She is complaining of constipation otherwise she denies any complaints. On 01/26/2022 patient was seen and examined in the ICU she is alert and oriented in no distress, she denies any complaints at this time yesterday she was transferred to ICU due to hypotension, today she is feeling better she is still maintained on levophed she is also maintained on IV antibiotics ceftriaxon. She is off oxygen at this time and saturating at 92% 01/27/2022 patient is alert and oriented 3 currently sitting up in chair in the intensive care unit. Per nursing staff patient has been off the Levophed this a.m. did require temporarily last night. Patient has been ordered for the ICU awaiting bed placement. Current vital signs temp 98.1, heart rate 87, respiratory rate 12, blood pressure 94/53 satting 95% on 2 L nasal cannula On 01/28/2022 patient was seen and examined in the ICU she is alert and oriented in no distress, she denies any complaints at this time yesterday she was transferred to ICU due to hypotension, today she is feeling better she is still maintained on levophed she is also maintained on IV antibiotics ceftriaxon. She is off oxygen at this time and saturating at 92% today she is off Levophed, she can be transferred out of ICU possible discharge to rehab tomorrow On 01/29/2022 patient was seen and examined on the telemetry floor she is alert and oriented 3 in no apparent distress there is no fever or chills no headache or dizziness no chest pain no shortness of breath she has occasional cough no nausea or vomiting no abdominal pain no diarrhea and no urinary symptoms input from pulmonary was reviewed patient was cleared to transfer to rehab, input from infectious disease was reviewed patient was cleared to be transferred out of the hospital on in oral course of Ceftin patient will be transferred today to [facility] for rehabilitation Plan - Discharge Summary Discharge Rx Participant: Yes New Discharge Prescriptions: New predniSONE 10 mg PO DAILY tab Budesonide-Formot 160-4.5 Mcg [Symbicort 160-4.5 Mcg Inhaler] 2 puff INHALATION RT-BID each Acetaminophen Tab [Tylenol] 650 mg PO Q4HR PRN tab PRN Reason: Fever And/Or Mild Pain Ascorbic Acid [Vitamin C] 500 mg PO BID tab Cholecalciferol [Vitamin D3 (25 Mcg = 1000 Iu)] 50 mcg PO DAILY tab Apixaban [Eliquis] 5 mg PO BID #60 tab cefUROXime axetiL [Ceftin] 500 mg PO BID 7 Days #14 tab Lactulose [Cephulac] 20 gm PO DAILY ml Ipratropium-Albuterol Nebulize [Duoneb 0.5 mg-3 mg/3 ml Soln] 3 ml INHALATION RT-QID each INSULIN ASPART (NovoLOG) [NovoLOG (formulary)] 0 unit SQ ACHS each Omeprazole 20 mg PO AC-BRKFST 30 Days #30 cap Levothyroxine Sodium [Synthroid] 125 mcg PO DAILY 30 Days #30 tablet Continue risperiDONE [RisperDAL] 2 mg PO HS Citalopram Hydrobromide [CeleXA] 30 mg PO DAILY ALPRAZolam [Xanax] 0.25 mg PO BID PRN PRN Reason: Anxiety Discontinued Ipratropium/Albuter 20-100Mcg [Combivent Respimat 20-100Mcg Inhaler] 1 puff INHALATION RT-QID Levothyroxine Sodium 150 mcg PO Q48H Levothyroxine Sodium [Synthroid] 175 mcg PO Q48H Discharge Medication List ALPRAZolam [Xanax] 0.25 mg PO BID PRN 01/07/22 [History] Citalopram Hydrobromide [CeleXA] 30 mg PO DAILY 01/07/22 [History] risperiDONE [RisperDAL] 2 mg PO HS 01/07/22 [History] Apixaban [Eliquis] 5 mg PO BID #60 tab 01/08/22 [Rx] Acetaminophen Tab [Tylenol] 650 mg PO Q4HR PRN tab 01/29/22 [Rx] Ascorbic Acid [Vitamin C] 500 mg PO BID tab 01/29/22 [Rx] Budesonide-Formot 160-4.5 Mcg [Symbicort 160-4.5 Mcg Inhaler] 2 puff INHALATION RT-BID each 01/29/22 [Rx] Cholecalciferol [Vitamin D3 (25 Mcg = 1000 Iu)] 50 mcg PO DAILY tab 01/29/22 [Rx] INSULIN ASPART (NovoLOG) [NovoLOG (formulary)] 0 unit SQ ACHS each 01/29/22 [Rx] Ipratropium-Albuterol Nebulize [Duoneb 0.5 mg-3 mg/3 ml Soln] 3 ml INHALATION RT-QID each 01/29/22 [Rx] Lactulose [Cephulac] 20 gm PO DAILY ml 01/29/22 [Rx] Levothyroxine Sodium [Synthroid] 125 mcg PO DAILY 30 Days #30 tablet 01/29/22 [Rx] Omeprazole 20 mg PO AC-BRKFST 30 Days #30 cap 01/29/22 [Rx] cefUROXime axetiL [Ceftin] 500 mg PO BID 7 Days #14 tab 01/29/22 [Rx] predniSONE 10 mg PO DAILY tab 01/29/22 [Rx] Follow up Appointment(s)/Referral(s): Elysia Van MD [Primary Care Provider] - 1-2 days
[2022-01-29 11:38] VITALS: RESP 18
[2022-01-29 11:51] LABS: Glucose,Whole Blood 100 mg/dL (70-110)
[2022-01-29 11:54] VITALS: BP 101/56; PULSE 81
--- NOTE | 2022-01-29 12:43 | P.PN ---
Subjective Progress Note Date: 01/29/22 Principal diagnosis: Acute hypoxic resource failure secondary to COVID-19 pneumonia This is a 76-year-old female who is not a great historian, her daughter is at bedside, patient is known to have history of hypothyroidism, COPD, history generalized anxiety disorder, patient has been weak for the last few days. According to the daughter, patient fell 4 days ago, and has been complaining of pain to her buttocks. Patient also had some intermittent cough, shortness of breath, and according to the daughter the patient has not been taking her medications including her thyroid medicine and her Combivent for COPD. Patient is a heavy smoker, she smoked 2 packs a day for many years. Does not use oxygen at home. Workup in the ER included a CBC which showed leukocytosis. Elevated d-dimer of 3.94. Abnormal renal profile with a BUN of 76 creatinine of 1.92 and low sodium of 129, elevated BNP level of 2580, normal troponin, and normal liver enzymes. Patient was also noted to have positive PCR for COVID-19, chest x-ray showed multifocal reticular markings and multifocal atypical infiltrates. Possible underlying pulmonary fibrosis. No old x-ray for comparison. Patient was also noted to be relatively hypotensive requiring fluid boluses with slight improvement of the blood pressure. I saw this patient in the ER, and I recommended admitting the patient to the ICU. In the meantime I ordered a high- resolution CT of the chest, started the patient on Remdesivir, patient is on 6 L nasal cannula, recommended fluid boluses, empiric antibiotics, pro-calcitonin level is pending, and order the COVID-19 cocktail. Reevaluated today on 01/08/22, patient remains in the ICU, her condition became a bit worse overnight, patient had to be placed on BiPAP, and she is now on BiPAP FiO2 of 50% IPAP 16 and EPAP of 6 I was able to cut down her FiO2 to 45% and her IPAP 10-14 EPAP remains at 6. Patient is requiring norepinephrine for low blood pressure, hence this is clearly a presentation of septic shock. Patient is requiring norepinephrine at 0.38 mcg/kg/m, her IV fluid went down to KVO after she received 4 L of fluids last night, felt that the patient was over hydrated, and her urine output picked up last night and I was notified about her worsening pulmonary status recommended Lasix dose earlier today with good response to the Lasix. Her creatinine is improving when down from 1.92-1.70 today. Bicarb remains low at 14 on him recommending a bicarb drip. Today I was able to establish a triple-lumen catheter and arterial line and the patient, her pro calcitonin was noted to be high at 5.47, patient was initially placed on vancomycin and Zosyn, blood cultures are negative so far, I'm recommending that we continue Zosyn, discontinue vancomycin, and recommending infectious disease consultation. I'm also recommending a CT of the lumbosacral spine since the patient has significant area of ecchymosis in the buttock area and low back. Apparently she fell 4 days ago. And she had significant amount of pain. The ER physician ordered a thoracic spine CT but did not address the lumbar spine area which seems to be the area of pain and the area of trauma. Patient remains on the COVID-19 cocktail. And I started the patient yesterday on Remdesivir. Since her symptoms were recent within the therapeutic window. WBC count is 20.2 hemoglobin is 12.5. Electrodes are normal except elevated potassium and that will improve with bicarbonate drip. Renal profile as noted earlier. Pro- calcitonin level is very high at 5.47 Reevaluated today on , patient remains in the ICU, remains on BiPAP, FiO2 40%, IPAP of 14 EPAP of 6. Remains on small dose of norepinephrine at 0.1 mcg/kg/m, patient remains on bicarb drip, I cut it down to 25 mL per hour today. Yesterday she had ultrasound of the gallbladder showing mostly cholelithiasis but no cholecystitis. Patient had negative CT of the lumbar spine. Remains on Zosyn empirically since her pro calcitonin level was quite high. She has better urine output, 35-50 mL per hour. Planning today to change from BiPAP possibly to airvo. Planning to gently diurese the patient, her chest x-ray is not mera wing much of a change in her bilateral interstitial infiltrates, and again I strongly suspect ongoing interstitial lung disease. WBC count 14.8 hemoglobin is 10.6, PTT is 73.7, patient remains on heparin. Basic metabolic profile is normal, BUN is 63 and creatinine 1.41. Reevaluated today on 01/10/22, patient remains in the ICU, remains on BiPAP, she is on 40% FiO2 IPAP of 12 EPAP of 5 Reed seems to be comfortable, and not in distress. Feeling better. Remains on heparin and she remains on norepinephrine at 0.1 mcg/kg/m. Today I am changes heparin to eliquis which she took on outpatient basis. Chest x-ray continues to show interstitial lung disease and interstitial infiltrates. Clinically the patient is feeling better. Her renal functioning is almost back to normal. Continues to have good urine output with diuresis. BUN is down to 60 creatinine is down to 1.12 patient remains on Remdesivir she remains on the COVID-19 cocktail. Reevaluated today on 01/11/22 patient remains in the ICU, she is now on airvo S 50% FiO2 and 60 L flow, saturating in the mid 90s, patient is still requiring norepinephrine at 0.12 mcg/kg/m. Remains on her day #5 of Remdesivir, she is also on Decadron, eliquis, and multivitamins, patient is also on Zosyn for empiric treatment of superimposed bacterial infection/pneumonia considering that her pro calcitonin level was quite high on admission. Overall clinically the patient is improving but very slowly. WBC count is 7.5 hemoglobin is 10.7. E lectrodes are normal renal profile is basically back to normal her creatinine is now 0.83. Reevaluated today on 02/08/22, patient remains in the ICU, remains relatively critically ill, patient is still requiring norepinephrine at 0.08 mcg/kg/m, patient remains on airvo at 55 L and 55% FiO2, chest x-ray is showing some worsening today with interstitial infiltrates, possible interstitial edema, hen ce I recommended a dose of Lasix 40 mg IV push, and the patient had significant urine output after the Lasix given. She remains on Decadron, she is also on eliquis, and she is on Zosyn. Her echocardiogram showed good LV function, however I am planning to keep the patient on the dry side considering her underlying COVID-19 pneumonia and her underlying interstitial lung disease. WBC count is 9 hemoglobin is 10.8 electrolytes are normal renal profile is normal, blood cultures remain negative. Pro-calcitonin level on admission was elevated. Reevaluated today on 01/13/22, patient remains in the ICU, remains critically ill, she remains on high flow oxygen via airflow, she is on 60% FiO2 and 60 L flow. Patient doesn't respond to diuretics quite well, however her chest x-ray is not showing much improvement, I strongly believe that we are dealing with COVID-19 pneumonia along with interstitial lung disease/pulmonary fibrosis. Not much of a change in the last 24 hours, patient is still on antibiotics empirically because of her pro calcitonin level was elevated, she is still on diuretics as needed, she still requiring norepinephrine at 0.05 mcg/kg/m. Patient remains marginal at best, and I have no plans to transfer the patient out of the ICU at this point yet. She may eventually require a PICC line placement she does have a central access test present but needs to be changed to a PICC line. Reevaluated today on 01/28/22, patient remains in the ICU as an overflow, she seems to be doing better, has shown significant improvement nonetheless the patient has been in the hospital since 01/07/22. Remains on bronchodilators, antibiotics, steroids, and has been gradually improving, she does have possibly some interstitial lung disease in addition to her COVID-19 pneumonia, she also had a pressure ulcer of sacrum region, blood cultures did show evidence of Streptococcus agalactiae, which is normally skin sae and skin origin. Repeat blood cultures have been negative. Her urine showed E. coli which is being treated,, infectious disease on the case he had labs today are basically unremarkable except for low hemoglobin of 8.2, she had normal electrolytes normal renal profile. Patient remains on Rocephin. Reevaluated today on 01/29/22, patient is doing well, continues to improve, patient will be cleared for discharge today to rehab. Discussed her condition with the admitting physician, and he will arrange for her to be discharged today. Patient is only on 2 L nasal cannula O2 sats 97%, she does not seem to be in any distress Objective - Vital Signs Vital signs: Vital Signs Temp 97.5 F L 01/29/22 08:44 Pulse 81 01/29/22 11:54 Resp 18 01/29/22 11:54 BP 101/56 01/29/22 11:54 Pulse Ox 97 01/29/22 11:54 FiO2 21 01/28/22 19:34 Intake & Output 01/28/22 01/29/22 01/29/22 18:59 06:59 18:59 Intake Total 1070 540 Output Total 2450 3650 250 Balance -1380 -3110 -250 Intake: Oral 1070 540 Output: Urine 2450 3650 250 Other: Voiding Method Indwelling Catheter Indwelling Catheter External Catheter # Bowel Movements 2 ABP, PAP, CO, CI - Last Documented Arterial Blood Pressure 99/39 - Exam Physical Exam: Revealed 76-year-old female in no distress, on 2 L nasal cannula Head: Atraumatic, normocephalic. HEENT:[Neck is supple.] [No neck masses.] [No thyromegaly.] [No JVD.] Dry mucous membranes. Chest: [Symmetrical chest expansion, minimal fine crackles at the bases Cardiac Exam: [Normal S1 and S2, no S3 gallop, no murmur.] Abdomen: [Soft, nontender, no megaly, no rebound, no guarding, normal bowel so unds.] Extremities: [No clubbing, no edema, no cyanosis.] Neurological Exam: [No focal neurologic deficit.] Alert oriented 3, she seems to be generally weak. Psychiatric: Normal mood, affect and normal mental status examination. Skin: Lumbosacral's area ecchymosis from recent fall. Musculoskeletal: No deformities and no limitation of range of motion - Labs CBC & Chem 7: 01/28/22 05:34 01/28/22 05:34 Labs: Abnormal Lab Results - Last 24 Hours (Table) 01/28/22 Range/Units 18:26 POC Glucose (mg/dL) 164 H (70-110) mg/dL Microbiology - Last 24 Hours (Table) 01/25/22 05:05 Blood Culture - Preliminary Blood No Growth after 96 hours Assessment and Plan Assessment: Impression: Acute hypoxic respiratory failure secondary to acute COVID-19 pneumonia, pulmonary embolism, and possible underlying interstitial lung disease Possible interstitial lung disease/pulmonary fibrosis E. coli urinary tract infection, patient is on Rocephin as per infectious disease on the case. Severe pulmonary hypertension right-sided pressures in the range of 74 Gallstones without cholecystitis Hypotension, secondary to sepsis/septic shock and hypovolemia on presentation History of underlying COPD does not seem to be active at this point. But likely contributing to her hypoxic respiratory failure History of hypothyroidism History of generalized anxiety disorder Acute dehydration Acute kidney injury secondary to dehydration Paroxysmal atrial fibrillation Recommendation: considering the patient's improvement over the last few days, we'll clear the patient to be discharged to rehab. Discussed her condition with the admitting physician, and she would likely be discharged today. Time with Patient: Less than 30
== END 2022-01-29 12:20 | DRG 871 ==
LOC: EC 10:04 → 2SICU 14:04 → 4SSUR 01-18 17:49 → 2SICU 01-23 03:09 → 3SCARD 01-28 19:12
PROVIDERS: ADMIT Internal Medicine; ATTEND Internal Medicine
PROC: XW043E5 Introduction of Remdesivir Anti-infective into Central Vein, Percutaneous Approach, New Technology Group 5 (ICD-10-PCS; 2022-01-07)
PROC: 5A09457 Assistance with Respiratory Ventilation, 24-96 Consecutive Hours, Continuous Positive Airway Pressure (ICD-10-PCS; principal; 2022-01-08)
PROC: 3E043XZ Introduction of Vasopressor into Central Vein, Percutaneous Approach (ICD-10-PCS; 2022-01-08)
PROC: 06HM33Z Insertion of Infusion Device into Right Femoral Vein, Percutaneous Approach (ICD-10-PCS; 2022-01-09)
PROC: 03HY32Z Insertion of Monitoring Device into Upper Artery, Percutaneous Approach (ICD-10-PCS; 2022-01-23)
PROC: 4A133J1 Monitoring of Arterial Pulse, Peripheral, Percutaneous Approach (ICD-10-PCS; 2022-01-23)
PROC: 4A133B1 Monitoring of Arterial Pressure, Peripheral, Percutaneous Approach (ICD-10-PCS; 2022-01-23)
DX: A41.89 Other specified sepsis (principal); I26.99 Other pulmonary embolism without acute cor pulmonale; U07.1 COVID-19; J12.82 Pneumonia due to coronavirus disease 2019; J15.9 Unspecified bacterial pneumonia; J96.01 Acute respiratory failure with hypoxia; R57.1 Hypovolemic shock; R65.21 Severe sepsis with septic shock; I48.19 Other persistent atrial fibrillation; I48.92 Unspecified atrial flutter; J44.0 Chronic obstructive pulmonary disease with (acute) lower respiratory infection; J44.1 Chronic obstructive pulmonary disease with (acute) exacerbation; M00.9 Pyogenic arthritis, unspecified; N17.9 Acute kidney failure, unspecified; E87.20 Acidosis, unspecified; J84.10 Pulmonary fibrosis, unspecified; I70.228 Atherosclerosis of native arteries of extremities with rest pain, other extremity; I27.20 Pulmonary hypertension, unspecified; I10 Essential (primary) hypertension; Z66 Do not resuscitate; E03.9 Hypothyroidism, unspecified; E86.1 Hypovolemia; F17.210 Nicotine dependence, cigarettes, uncomplicated; L89.309 Pressure ulcer of unspecified buttock, unspecified stage; L89.152 Pressure ulcer of sacral region, stage 2; F41.1 Generalized anxiety disorder; H91.90 Unspecified hearing loss, unspecified ear; I25.10 Atherosclerotic heart disease of native coronary artery without angina pectoris; K59.00 Constipation, unspecified; K80.20 Calculus of gallbladder without cholecystitis without obstruction; M46.02 Spinal enthesopathy, cervical region; E78.5 Hyperlipidemia, unspecified; E86.0 Dehydration; M48.02 Spinal stenosis, cervical region; Z78.9 Other specified health status; Z79.01 Long term (current) use of anticoagulants; Z79.890 Hormone replacement therapy; Z79.899 Other long term (current) drug therapy; Z91.14 Patient's other noncompliance with medication regimen; Z95.5 Presence of coronary angioplasty implant and graft; Z91.81 History of falling; Z71.3 Dietary counseling and surveillance; Z28.310 Unvaccinated for COVID-19; Z28.21 Immunization not carried out because of patient refusal; R79.1 Abnormal coagulation profile; R53.81 Other malaise; Z53.29 Procedure and treatment not carried out because of patient's decision for other reasons; Z88.4 Allergy status to anesthetic agent
CPT/HCPCS: 36415; 70450; 71045; 71046; 71250; 72125; 72131; 76705; 78580; 80048; 80053; 81001; 82272; 82553; 83605; 83615; 83735; 83880; 84132; 84145; 84484; 85025; 85379; 85610; 85652; 85730; 86140; 87040; 87077; 87086; 87186; 87635; 93005; 93306; 93923; 93970; 94640; 94660; 94760; 96361; 96365; 96375; 99291

== ENCOUNTER 2023-07-13 13:26 | Inpatient (IN) | payer MEDICARE ==
--- NOTE | 2023-07-13 13:52 | ED ---
General Adult HPI - General Chief complaint: Shortness of Breath Stated complaint: GABINO Time Seen by Provider: 07/13/23 13:28 Source: patient, EMS, RN notes reviewed Mode of arrival: EMS Limitations: no limitations - History of Present Illness Initial comments: Samantha is a 78-year-old female present to the emergency department with concerns with difficulty breathing. Onset of symptoms was just today. Patient has history of similar symptoms previously associated with COPD. No cough. No fever. Patient states she has been urinating and defecating normally however is concerned that her abdomen is somewhat distended. Patient has mild abdominal di scomfort. No fever. - Related Data Home Medications Medication Instructions Recorded Confirmed ALPRAZolam [Xanax] 0.25 mg PO DAILY PRN 01/07/22 07/13/23 Citalopram Hydrobromide [CeleXA] 30 mg PO DAILY 01/07/22 07/13/23 risperiDONE [RisperDAL] 2 mg PO HS 01/07/22 07/13/23 ALPRAZolam [Xanax] 0.25 mg PO DAILY 07/13/23 07/13/23 Albuterol Nebulized [Ventolin 2.5 mg INHALATION RT-QID PRN 07/13/23 07/13/23 Nebulized] Albuterol Sulfate [Albuterol 2 puff PO RT-Q6H PRN 07/13/23 07/13/23 Sulfate Hfa] Clopidogrel [Plavix] 75 mg PO DAILY 07/13/23 07/13/23 Ipratropium/Albuter 20-100Mcg 1 puff INHALATION RT-QID 07/13/23 07/13/23 [Combivent Respimat 20-100Mcg Inhaler] Lactulose 20 gm PO DAILY PRN 07/13/23 07/13/23 Levothyroxine Sodium [Synthroid] 150 mcg PO MOWEFR 07/13/23 07/13/23 Levothyroxine Sodium [Synthroid] 175 mcg PO SUTUTHSA 07/13/23 07/13/23 Midodrine HCl [ProAmantine] 2.5 mg PO BID 07/13/23 07/13/23 predniSONE 7.5 mg PO DAILY 07/13/23 07/13/23 Allergies Allergy/AdvReac Type Severity Reaction Status Date / Time procaine [From Novocain] Allergy Dyspnea & Verified 07/13/23 13:56 Hallucinations Review of Systems ROS Statement: Those systems with pertinent positive or pertinent negative responses have been documented in the HPI. ROS Other: All systems not noted in ROS Statement are negative. Constitutional: Denies: fever Eyes: Denies: eye pain Respiratory: Reports: as per HPI, dyspnea. Denies: cough Cardiovascular: Denies: chest pain Endocrine: Denies: fatigue Gastrointestinal: Reports: as per HPI. Denies: diarrhea, constipation Genitourinary: Denies: dysuria Past Medical History Past Medical History: COPD Additional Past Medical History / Comment(s): Lupus History of Any Multi-Drug Resistant Organisms: None Reported Past Surgical History: Unable to Obtain Additional Past Surgical History / Comment(s): Polyp removed from throat Past Anesthesia/Blood Transfusion Reactions: No Reported Reaction Past Psychological History: No Psychological Hx Reported Smoking Status: Current every day smoker General Exam Limitations: no limitations General appearance: alert, in no apparent distress Head exam: Present: normocephalic Eye exam: Present: normal appearance ENT exam: Present: normal oropharynx, other (A dentulous) Neck exam: Present: normal inspection Respiratory exam: Present: wheezes, decreased breath sounds Cardiovascular Exam: Present: regular rate, normal rhythm GI/Abdominal exam: Present: soft, distended (Mildly distended), tenderness (Mild diffuse tenderness, more mid abdomen), normal bowel sounds. Absent: guarding, rebound, rigid, pulsatile mass Extremities exam: Present: normal inspection. Absent: pedal edema, calf tenderness Neurological exam: Present: alert Psychiatric exam: Present: normal affect, normal mood Skin exam: Present: normal color Course Vital Signs 07/13/23 07/13/23 07/13/23 13:32 13:35 15:03 Temperature 98.9 F Pulse Rate 85 90 Respiratory 18 24 24 Rate Blood Pressure 144/73 126/74 O2 Sat by Pulse 95 94 L Oximetry 07/13/23 07/13/23 15:34 15:44 Temperature Pulse Rate 81 81 Respiratory Rate Blood Pressure O2 Sat by Pulse Oximetry EKG Findings - EKG Results: EKG: interpreted by ERMD (Left axis.), sinus rhythm, normal QRS, normal ST/T Medical Decision Making - Medical Decision Making Was pt. sent in by a medical professional or institution (, PA, CHAIRMAN AND CEO, urgent care, hospital, or care home...) When possible be specific @ -No Did you speak to anyone other than the patient for history (EMS, parent, family, police, friend...)? What history was obtained from this source @ -No Did you review nursing and triage notes (agree or disagree)? Why? @ -I reviewed and agree with nursing and triage notes Were old charts reviewed (outside hosp., previous admission, EMS record, old EKG, old radiological studies, urgent care reports/EKG's, care home records)? Report findings @ -No old charts were reviewed Differential Diagnosis (chest pain, altered mental status, abdominal pain women, abdominal pain men, vaginal bleeding, weakness, fever, dyspnea, syncope, headache, dizziness, GI bleed, back pain, seizure, CVA, palpatations, mental health, musculoskeletal)? @ -Differential Dyspnea: Coronary syndrome, arrhythmia, tamponade, asthma, COPD, pulmonary embolism, pneumonia, pneumothorax, pulmonary effusion, anaphylaxis, diabetic ketoacidosis, flailed chest, pulmonary contusion, diaphragmatic rupture, anemia, neuromuscular, this is not meant to be an all-inclusive list. EKG interpreted by me (3pts min.). @ -As above X-rays interpreted by me (1pt min.). @ -This x-ray shows no acute process CT interpreted by me (1pt min.). @ -CT scan of abdomen and pelvis shows gaseous distention and large stool ball. U/S interpreted by me (1pt. min.). @ -None done What testing was considered but not performed or refused? (CT, X-rays, U/S, labs)? Why? @ -None What meds were considered but not given or refused? Why? @ -None Did you discuss the management of the patient with other professionals (professionals i.e. , PA, CHAIRMAN AND CEO, lab, RT, psych nurse, web content & social media manager, viscose cellar worker, teacher, airport operations officer, disability case manager)? Give summary @ -Case discussed with Dr. Mendosa who will admit covering Dr. Diamond Was smoking cessation discussed for >3mins.? @ -No Was critical care preformed (if so, how long)? @ -No Were there social determinants of health that impacted care today? How? (Home lessness, low income, unemployed, alcoholism, drug addiction, transportation, low edu. Level, literacy, decrease access to med. care, usp, rehab)? @ -No Was there de-escalation of care discussed even if they declined (Discuss DNR or withdrawal of care, Hospice)? DNR status @ -No What co-morbidities impacted this encounter? (DM, HTN, Smoking, COPD, CAD, Cancer, CVA, ARF, Chemo, Hep., AIDS, mental health diagnosis, sleep apnea, morbid obesity)? @ -None Was patient admitted / discharged? Hospital course, mention meds given and route, prescriptions, significant lab abnormalities, going to OR and other pertinent info. @ -Patient presents with dyspnea similar to previous COPD. Somewhat improved with DuoNeb. Patient will be admitted. Admission orders written. Patient will need suppository and possibly enema for disimpaction. Undiagnosed new problem with uncertain prognosis? @ -No Drug Therapy requiring intensive monitoring for toxicity (Heparin, Nitro, Insulin, Cardizem)? @ -No Were any procedures done? @ -No Diagnosis/symptom? @ -COPD, constipation Acute, or Chronic, or Acute on Chronic? @ -Acute, acute Uncomplicated (without systemic symptoms) or Complicated (systemic symptoms)? @ -Default Side effects of treatment? @ -No Exacerbation, Progression, or Severe Exacerbation? @ -No Poses a threat to life or bodily function? How? (Chest pain, [place], [place], pneumonia, PE, COPD, DKA, ARF, appy, cholecystitis, CVA, Diverticulitis, Homicidal, Suicidal, threat to staff... and all critical care pts) @ -No - Lab Data Result diagrams: 07/13/23 14:10 07/13/23 14:10 Lab Results 07/13/23 07/13/23 07/13/23 Range/Units 14:10 14:10 14:10 WBC 13.9 H (3.8-10.6) k/uL RBC 4.58 (3.80-5.40) m/uL Hgb 13.2 (11.4-16.0) gm/dL Hct 40.6 (34.0-46.0) % MCV 88.6 (80.0-100.0) fL MCH 28.8 (25.0-35.0) pg MCHC 32.5 (31.0-37.0) g/dL RDW 13.4 (11.5-15.5) % Plt Count 314 (150-450) k/uL MPV 7.2 Neutrophils % 82 % Lymphocytes % 8 % Monocytes % 7 % Eosinophils % 1 % Basophils % 1 % Neutrophils # 11.4 H (1.3-7.7) k/uL Lymphocytes # 1.1 (1.0-4.8) k/uL Monocytes # 1.0 (0-1.0) k/uL Eosinophils # 0.1 (0-0.7) k/uL Basophils # 0.1 (0-0.2) k/uL PT (10.0-12.5) sec INR (<1.2) APTT (22.0-30.0) sec Sodium 131 L (137-145) mmol/L Potassium 3.9 (3.5-5.1) mmol/L Chloride 101 (98-107) mmol/L Carbon Dioxide 24 (22-30) mmol/L Anion Gap 6 mmol/L BUN 13 (7-17) mg/dL Creatinine 0.53 (0.52-1.04) mg/dL Est GFR (CKD-EPI)AfAm >90 (>60 ml/min/1.73 sqM) Est GFR (CKD-EPI)NonAf >90 (>60 ml/min/1.73 sqM) Glucose 102 H (74-99) mg/dL Plasma Lactic Acid Marshall (0.7-2.0) mmol/L Calcium 9.2 (8.4-10.2) mg/dL Magnesium 1.9 (1.6-2.3) mg/dL Total Bilirubin 1.1 (0.2-1.3) mg/dL AST 20 (14-36) U/L ALT 9 (4-34) U/L Alkaline Phosphatase 105 (38-126) U/L Total Protein 6.4 (6.3-8.2) g/dL Albumin 4.0 (3.5-5.0) g/dL Urine Color Urine Appearance (Clear) Urine pH (5.0-8.0) Ur Specific [place] (1.001-1.035) Urine Protein (Negative) Urine Glucose (UA) (Negative) Urine Ketones (Negative) Urine Blood (Negative) Urine Nitrite (Negative) Urine Bilirubin (Negative) Urine Urobilinogen (<2.0) mg/dL Ur Leukocyte Esterase (Negative) Urine RBC (0-5) /hpf Urine WBC (0-5) /hpf Urine Bacteria (None) /hpf Urine Mucus (None) /hpf SARS-CoV-2 (PCR) Not Detected (Not Detectd) 07/13/23 07/13/23 07/13/23 Range/Units 14:31 15:00 15:03 WBC (3.8-10.6) k/uL RBC (3.80-5.40) m/uL Hgb (11.4-16.0) gm/dL Hct (34.0-46.0) % MCV (80.0-100.0) fL MCH (25.0-35.0) pg MCHC (31.0-37.0) g/dL RDW (11.5-15.5) % Plt Count (150-450) k/uL MPV Neutrophils % % Lymphocytes % % Monocytes % % Eosinophils % % Basophils % % Neutrophils # (1.3-7.7) k/uL Lymphocytes # (1.0-4.8) k/uL Monocytes # (0-1.0) k/uL Eosinophils # (0-0.7) k/uL Basophils # (0-0.2) k/uL PT 10.8 (10.0-12.5) sec INR 1.0 (<1.2) APTT 25.1 (22.0-30.0) sec Sodium (137-145) mmol/L Potassium (3.5-5.1) mmol/L Chloride (98-107) mmol/L Carbon Dioxide (22-30) mmol/L Anion Gap mmol/L BUN (7-17) mg/dL Creatinine (0.52-1.04) mg/dL Est GFR (CKD-EPI)AfAm (>60 ml/min/1.73 sqM) Est GFR (CKD-EPI)NonAf (>60 ml/min/1.73 sqM) Glucose (74-99) mg/dL Plasma Lactic Acid Marshall 1.0 (0.7-2.0) mmol/L Calcium (8.4-10.2) mg/dL Magnesium (1.6-2.3) mg/dL Total Bilirubin (0.2-1.3) mg/dL AST (14-36) U/L ALT (4-34) U/L Alkaline Phosphatase (38-126) U/L Total Protein (6.3-8.2) g/dL Albumin (3.5-5.0) g/dL Urine Color Yellow Urine Appearance Clear (Clear) Urine pH 6.0 (5.0-8.0) Ur Specific [place] 1.014 (1.001-1.035) Urine Protein 1+ H (Negative) Urine Glucose (UA) Negative (Negative) Urine Ketones Negative (Negative) Urine Blood Moderate H (Negative) Urine Nitrite Negative (Negative) Urine Bilirubin Negative (Negative) Urine Urobilinogen <2.0 (<2.0) mg/dL Ur Leukocyte Esterase Small H (Negative) Urine RBC 7 H (0-5) /hpf Urine WBC 5 (0-5) /hpf Urine Bacteria Few H (None) /hpf Urine Mucus Rare H (None) /hpf SARS-CoV-2 (PCR) (Not Detectd) Disposition Clinical Impression: COPD exacerbation, Constipation Disposition: ADMITTED IP TO THIS HOSP Is patient prescribed a controlled substance at d/c from ED?: No Referrals: Rickey Boswell MD [Primary Care Provider] - 1-2 days Time of Disposition: 16:45
[2023-07-13] MEDS: methylPREDNISolone SOD SUCCI 125 MG/2 ML VIAL IV STA (14:31)
[2023-07-13 14:54] LABS: ALT 9 U/L (4-34); AST 20 U/L (14-36); African American GFR (CKD) >90 (>60 ml/min/1.73 sqM); Alkaline Phosphatase 105 U/L (38-126); Anion Gap 6 mmol/L; Blood Urea Nitrogen 13 mg/dL (7-17); Calcium 9.2 mg/dL (8.4-10.2); Carbon Dioxide 24 mmol/L (22-30); Chloride 101 mmol/L (98-107); Glucose 102 mg/dL (74-99); Magnesium 1.9 mg/dL (1.6-2.3); Non-African American GFR(CKD) >90 (>60 ml/min/1.73 sqM); Potassium 3.9 mmol/L (3.5-5.1); Sodium 131 mmol/L (137-145); Total Bilirubin 1.1 mg/dL (0.2-1.3); Total Protein 6.4 g/dL (6.3-8.2)
--- NOTE | 2023-07-13 14:56 | XR ---
EXAMINATION TYPE: XR chest 2V DATE OF EXAM: 07/13/2023 2:49 PM CLINICAL INDICATION:Female, 78 years old with history of difficulty breathing; [facility] COMPARISON: Chest radiographs from 01/28/2022 TECHNIQUE: XR chest 2V Frontal and lateral views of the chest. FINDINGS: Lungs/Pleura: Prominent interstitial lung markings are seen scattered throughout the lungs with red ening of the diaphragm and increased lucency of the lung apices. No evidence of focal consolidation, pneumothorax or pleural effusion. Pulmonary vascularity: Unremarkable. Heart/mediastinum: Cardiomediastinal silhouette is unremarkable. Musculoskeletal: No acute osseous pathology. IMPRESSION: 1. No acute cardiopulmonary disease process. 2. COPD changes.
[2023-07-13 15:03] LABS: Basophils # (A) 0.1 k/uL (0-0.2); Basophils % (A) 1 %; Eosinophils # (A) 0.1 k/uL (0-0.7); Eosinophils % (A) 1 %; HCT 40.6 % (34.0-46.0); HGB 13.2 gm/dL (11.4-16.0); Lymphocytes # (A) 1.1 k/uL (1.0-4.8); Lymphocytes % (A) 8 %; MCH 28.8 pg (25.0-35.0); MCHC 32.5 g/dL (31.0-37.0); MCV 88.6 fL (80.0-100.0); Mean Platelet Volume 7.2; Monocytes % (A) 7 %; Neutrophils # (A) 11.4 k/uL (1.3-7.7); Neutrophils % (A) 82 %; Platelet Count 314 k/uL (150-450); RBC 4.58 m/uL (3.80-5.40); RDW 13.4 % (11.5-15.5); WBC 13.9 k/uL (3.8-10.6)
[2023-07-13 15:21] LABS: Appearance,Urine Clear (Clear); Bacteria,Urine Few /hpf; Bilirubin,Urine Negative (Negative); Blood,Urine Moderate (Negative); Color,Urine Yellow; Glucose,Urine (UA) Negative (Negative); Ketones,Urine Negative (Negative); Leukocyte Esterase,Urine Small (Negative); Mucus,Urine Rare /hpf; Nitrite,Urine Negative (Negative); Protein,Urine 1+ (Negative); RBC,Urine 7 /hpf (0-5); Specific Gravity,Urine 1.014 (1.001-1.035); Urobilinogen,Urine <2.0 mg/dL (<2.0); WBC,Urine 5 /hpf (0-5)
[2023-07-13 15:29] LABS: Partial Thromboplastin Time 25.1 sec (22.0-30.0); Prothrombin Time 10.8 sec (10.0-12.5)
[2023-07-13] MEDS: IPRATROPIUM-ALBUTEROL 3 ML NEB INHALATION STA (15:34)
--- NOTE | 2023-07-13 16:00 | CT ---
EXAMINATION TYPE: CT abdomen pelvis w con CT DLP: 734.3 mGycm, Automated exposure control for dose reduction was used. DATE OF EXAM: 07/13/2023 3:37 PM COMPARISON: CT abdomen pelvis most recent from 01/24/2022 CLINICAL INDICATION:Female, 78 years old with history of abp; abdominal pain with GABINO TECHNIQUE: Axial CT abdomen pelvis w con;Sagittal and coronal reformats were created on a separate w orkstation. Contrast used:100 ml mL of Isovue 300 with IV Contrast, (none if empty) Oral contrast used: without Oral Contrast (none if empty) FINDINGS: LOWER CHEST: Severe centrilobular emphysema changes. ABDOMEN LIVER: Unremarkable GALLBLADDER AND BILE DUCTS: Unremarkable. PANCREAS: Unremarkable. SPLEEN: Unremarkable. ADRENAL GLANDS: Unremarkable. KIDNEYS AND URETERS: Mild dilation the left collecting system. No significant dilation of the collect ing system. PELVIS BLADDER: Unremarkable REPRODUCTIVE: Unremarkable. ABDOMEN & PELVIS STOMACH AND BOWEL: No evidence of bowel obstruction. No masses stool burden in the rectum measuring u p to 11.4 cm extending up into the sigmoid colon. Upstream gaseous dilation of large bowel and second adam to finding of large stool burden in the rectum. PERITONEUM/RETROPERITONEUM: No evidence of pneumoperitoneum or free fluid. VASCULATURE: No evidence of aortic aneurysm. MUSCULOSKELETAL: No acute osseous abnormalities. Moderate disc degeneration changes are present throu ghout the thoracolumbar spine. Scoliosis changes throughout the lumbar spine. LYMPH NODES: No gross evidence for lymphadenopathy. SOFT TISSUE/ABDOMINAL WALL: Unremarkable IMPRESSION: 1. Massive stool burden in the rectum fecal disimpaction recommended. This results in obscuring dila tion of large and small bowel with gaseous distention. 2. Mild left hydronephrosis secondary to mass effect from large stool in the rectum.
[2023-07-13] MEDS ORDERED: NALOXONE 0.4 MG/ML 1 ML VIAL IVP PRN (16:46)
[2023-07-13] MEDS ORDERED: IPRATROPIUM-ALBUTEROL 3 ML NEB INHALATION PRN (16:46)
[2023-07-13] MEDS ORDERED: ALPRAZolam 0.25 MG TAB PO PRN (16:48)
[2023-07-13] MEDS ORDERED: LACTULOSE 20 GM/30 ML CUP PO PRN (16:48)
[2023-07-13] MEDS: bisacodyL 10 MG SUPP RECTAL STA (17:18)
[2023-07-13] MEDS: methylPREDNISolone SOD SUCCI 125 MG/2 ML VIAL IV SCH (17:19)
[2023-07-13] MEDS: AZITHROMYCIN 500 MG in SODIUM CHLORIDE 0.9% 250 ML IVPB SCH (17:19)
[2023-07-13] MEDS: LACTULOSE 20 GM/30 ML CUP PO ONE (17:29)
[2023-07-13] MEDS: MIDODRINE 5 MG TAB PO SCH (17:32)
--- NOTE | 2023-07-13 17:59 | P.HPIM ---
History of Present Illness H&P Date: 07/13/23 Patient is a 78-year-old female with known COPD, nicotine dependency, and paroxysmal atrial fibrillation who presented with abdominal pain and difficulty in breathing. In the emergency department she underwent extensive evaluation. Initial vital signs were within normal limits. Initial laboratory analysis included CBC, coags, CMP, urinalysis, and COVID testing and was remarkable for white blood cell count 13.9 and sodium of 131. Patient underwent CT of the abdomen and pelvis which demonstrated massive stool burden in the rectum with fecal disimpaction recommended. This is resulting in large and small bowel gaseous distention. Patient seen and examined at bedside. She reports that she came to the emergency department due to feeling bloated and having belly pain. It is a dif fuse pain all over her abdomen that she describes as "stretching". She believes that she has been having bowel movements with the last one yesterday. She does not examine her bowel movements so she is unsure of what this looks like. She denies any nausea or vomiting. She does report decreased appetite. She states she is transfers between the bed and a wheelchair but has been this way for 1.5 years. She does endorse some difficulty in breathing but she feels that is due to being unable to take a deep breath. She does not feel like her COPD is flared. Vital signs reviewed General: nontoxic, no distress, appears at stated age Derm: warm, dry Eyes: EOMI, no lid lag, anicteric sclera, pupils equal round reactive to light ENT: Nose and ears atraumatic Cardiovascular: S1S2 reg, no murmur, no edema Lungs: Decreased breath sounds bilaterally, no rhonchi, no rales, no wheeze, no accessory muscle use Abdominal: Soft, distended, tympanic, decreased bowel sounds, tender to palpation diffusely Ext: no gross muscle atrophy, no contractures Neuro: CN II-XII grossly intact, No focal neuro deficits, tardiative dyskensia Psych: Alert, oriented, appropriate affect Assessment/Plan: Fecal impaction with colonic distention, 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 If this continues to be an effective patient likely would need barium enema. -If patient does not have bowel movement by the morning consider surgical consultation COPD without exacerbation Severe pulmonary hypertension Nicotine dependency -DuoNebs 4 times daily, albuterol 2.5 mg 4 times daily as needed -Nicotine patch 21 mcg daily Lupus -Maintain home prednisone 7.5 mg daily Atrial fibrillation Hypotension Hypothyroidism - Midodrin for SBP <100 -Follow blood pressures -Resume home levothyroxine History of generalized anxiety disorder Tardaitive dyskinesia -Continue Xanax 0.25 mg as needed, Resporal 2 mg at night, Celexa 30 mg daily -Patient is a very poor historian. Suggest obtaining records from Dr. Pineda's office during typical business hours. Unknown as to why patient takes Plavix 75 mg daily. Imaging: As per HPI Data Review: As per HPI The patient is [facility] observation with an anticipated less than 2 midnight stay Surrogate decision-maker: Daughter CODE STATUS: Full code DVT prophylaxis: SCD Anticipated discharge date: in 24-[address]: pending clinical course This dictation was prepared using [employer] voice recognition software. Though every attempt is made to correct errors during dictation some may still exist. Past Medical History Past Medical History: Atrial Fibrillation, COPD, Thyroid Disorder Additional Past Medical History / Comment(s): Lupus History of Any Multi-Drug Resistant Organisms: None Reported Past Surgical History: Unable to Obtain Additional Past Surgical History / Comment(s): Polyp removed from throat Past Anesthesia/Blood Transfusion Reactions: No Reported Reaction Past Psychological History: No Psychological Hx Reported Smoking Status: Current every day smoker Medications and Allergies Home Medications Medication Instructions Recorded Confirmed Type ALPRAZolam [Xanax] 0.25 mg PO DAILY PRN 01/07/22 07/13/23 History Citalopram Hydrobromide [CeleXA] 30 mg PO DAILY 01/07/22 07/13/23 History risperiDONE [RisperDAL] 2 mg PO HS 01/07/22 07/13/23 History ALPRAZolam [Xanax] 0.25 mg PO DAILY 07/13/23 07/13/23 History Albuterol Nebulized [Ventolin 2.5 mg INHALATION RT-QID PRN 07/13/23 07/13/23 History Nebulized] Albuterol Sulfate [Albuterol 2 puff PO RT-Q6H PRN 07/13/23 07/13/23 History Sulfate Hfa] Clopidogrel [Plavix] 75 mg PO DAILY 07/13/23 07/13/23 History Ipratropium/Albuter 20-100Mcg 1 puff INHALATION RT-QID 07/13/23 07/13/23 History [Combivent Respimat 20-100Mcg Inhaler] Lactulose 20 gm PO DAILY PRN 07/13/23 07/13/23 History Levothyroxine Sodium [Synthroid] 150 mcg PO MOWEFR 07/13/23 07/13/23 History Levothyroxine Sodium [Synthroid] 175 mcg PO SUTUTHSA 07/13/23 07/13/23 History Midodrine HCl [ProAmantine] 2.5 mg PO BID 07/13/23 07/13/23 History predniSONE 7.5 mg PO DAILY 07/13/23 07/13/23 History Allergies Allergy/AdvReac Type Severity Reaction Status Date / Time procaine [From Novocain] Allergy Dyspnea & Verified 07/13/23 13:56 Hallucinations Physical Exam Osteopathic Statement: *. No significant issues noted on an osteopathic structural exam other than those noted in the History and Physical/Consult. Vitals: Vital Signs Temp Pulse Resp BP Pulse Ox 07/13/23 17:30 82 24 129/71 94 L 07/13/23 15:44 81 07/13/23 15:34 81 07/13/23 15:03 90 24 126/74 94 L 07/13/23 13:35 24 07/13/23 13:32 98.9 F 85 18 144/73 95 Intake and Output 07/13/23 07/13/23 07/13/23 06:59 14:59 22:59 Other: Weight 74.843 kg Results CBC & Chem 7: 07/13/23 14:10 07/13/23 14:10 Labs: Abnormal Lab Results - Last 24 Hours (Table) 07/13/23 07/13/23 07/13/23 Range/Units 14:10 14:10 15:03 WBC 13.9 H (3.8-10.6) k/uL Neutrophils # 11.4 H (1.3-7.7) k/uL Sodium 131 L (137-145) mmol/L Glucose 102 H (74-99) mg/dL Urine Protein 1+ H (Negative) Urine Blood Moderate H (Negative) Ur Leukocyte Esterase Small H (Negative) Urine RBC 7 H (0-5) /hpf Urine Bacteria Few H (None) /hpf Urine Mucus Rare H (None) /hpf
[2023-07-13] MEDS: IPRATROPIUM-ALBUTEROL 3 ML NEB INHALATION SCH (18:17)
[2023-07-13] MEDS: NICOTINE 21MG/24HR PATCH TRANSDERM SCH (18:56)
[2023-07-13] MEDS: NA PHOS,M-B/NA PHOS,DI-BA 133 ML ENEMA RECTAL STA (18:56)
[2023-07-13] MEDS: risperiDONE 2 MG TAB PO SCH (22:00)
[2023-07-13] MEDS: bisacodyL 10 MG SUPP RECTAL SCH (22:00)
[2023-07-14] MEDS: ACETAMINOPHEN TAB 325 MG TAB PO STA (00:48)
[2023-07-14] MEDS: MORPHINE SULFATE 2 MG/ML SYRINGE IVP STA (03:27)
[2023-07-14] MEDS: IPRATROPIUM-ALBUTEROL 3 ML NEB INHALATION PRN (03:40)
[2023-07-14] MEDS: LEVOTHYROXINE 75 MCG TAB PO SCH (09:18)
[2023-07-14] MEDS: CLOPIDOGREL 75 MG TAB PO SCH (09:18)
[2023-07-14] MEDS: ALPRAZolam 0.25 MG TAB PO SCH (09:18)
[2023-07-14 10:54] LABS: Basophils % (A) 0 %; Eosinophils % (A) 0 %; HCT 40.3 % (34.0-46.0); HGB 12.9 gm/dL (11.4-16.0); Lymphocytes # (A) 0.9 k/uL (1.0-4.8); Lymphocytes % (A) 7 %; MCH 29.4 pg (25.0-35.0); MCV 91.8 fL (80.0-100.0); Mean Platelet Volume 7.1; Monocytes # (A) 1.1 k/uL (0-1.0); Monocytes % (A) 8 %; Neutrophils # (A) 10.8 k/uL (1.3-7.7); Neutrophils % (A) 82 %; Platelet Count 272 k/uL (150-450); RBC 4.39 m/uL (3.80-5.40); RDW 13.4 % (11.5-15.5); WBC 13.2 k/uL (3.8-10.6)
[2023-07-14 11:05] LABS: African American GFR (CKD) >90 (>60 ml/min/1.73 sqM); Anion Gap 5 mmol/L; Blood Urea Nitrogen 17 mg/dL (7-17); Calcium 8.9 mg/dL (8.4-10.2); Carbon Dioxide 24 mmol/L (22-30); Chloride 100 mmol/L (98-107); Glucose 90 mg/dL (74-99); Magnesium 1.9 mg/dL (1.6-2.3); Non-African American GFR(CKD) 88 (>60 ml/min/1.73 sqM); Potassium 3.8 mmol/L (3.5-5.1); Sodium 129 mmol/L (137-145)
[2023-07-14] MEDS: NA PHOS,M-B/NA PHOS,DI-BA 133 ML ENEMA RECTAL STA (12:19)
[2023-07-14] MEDS: CITALOPRAM HYDROBROMIDE 10 MG TAB PO SCH (12:19)
[2023-07-14] MEDS ORDERED: ZINC OXIDE PASTE (Z-GUARD) 1 APPLIC TOPICAL PRN (12:32)
--- NOTE | 2023-07-14 14:19 | P.PN ---
Subjective Progress Note Date: 07/14/23 Hospital Course: 78-year-old female with known COPD, nicotine dependency, and paroxysmal atrial fibrillation who presented with abdominal pain and difficulty in breathing. Initial vital signs were within normal limits. Initial laboratory analysis included CBC, coags, CMP, urinalysis, and COVID testing and was remarkable for white blood cell count 13.9 and sodium of 131. Patient underwent CT of the abdomen and pelvis which demonstrated massive stool burden in the rectum with fecal disimpaction recommended. This is resulting in large and small bowel gaseous distention. Subjective: Patient seen and examined at bedside. No acute events overnight. Had 2 large bowel movements overnight. She feels a lot less distended now. Pertinent positives and negatives as discussed above, a complete review of systems was performed and all other systems are negative. Vitals Signs Reviewed. General: [nontoxic], [no distress], [appears at stated age] Derm: [warm], [dry] Head: [atraumatic], [normocephalic], [symmetric] Eyes: [EOMI], [no lid lag], [anicteric sclera] Mouth: [no lip lesion], [mucus membranes moist] Cardiovascular: [S1S2 reg], [no murmur] Lungs: [CTA bilateral], [no rhonchi, no rales] , [no accessory muscle use] Abdominal: [soft], distended, [ nontender to palpation], [no guarding], [no appreciable organomegaly] Ext: [no gross muscle atrophy], [no edema], [no contractures] Neuro: [ CN II-XI grossly intact], [no focal neuro deficits] Psych: [Alert], [oriented], [appropriate affect] Data Reviewed Today: Pertinent Labs: WBC 13.2, sodium 129, creatinine 0.6, magnesium 1.9 Imaging: KUB pending Assessment and Plan: Fecal impaction with colonic distention, 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 Mild left-sided hydronephrosis secondary to distention Mild leukocytosis, likely reactive -Repeat Fleet enema -Bisacodyl 10 nightly -Patient is having bowel movements -Abdominal distention has been going down, low concern for any obstruction, can continue to hold off consulting surgery -Repeat imaging pending -TSH ordered Mild hyponatremia -Possibly in the setting of dehydration -Start normal saline at 75 cc an hour -BMP tomorrow COPD without exacerbation Severe pulmonary hypertension Nicotine dependency -DuoNebs 4 times daily, albuterol 2.5 mg 4 times daily as needed -Nicotine patch 21 mcg daily Lupus -Maintain home prednisone 7.5 mg daily Atrial fibrillation Hypotension Hypothyroidism - Midodrin for SBP <100 -Follow blood pressures -Resume home levothyroxine History of generalized anxiety disorder Tardaitive dyskinesia -Continue Xanax 0.25 mg as needed, Resporal 2 mg at night, Celexa 30 mg daily Unsure why patient is on Plavix 75 mg daily DVT ppx: Subcu heparin Code status: FC Anticipated discharge place: pending clinical course Anticipated discharge time: pending clinical course Objective - Vital Signs Vital signs: Vital Signs Temp 98.2 F 07/14/23 07:15 Pulse 100 07/14/23 12:39 Resp 18 07/14/23 07:45 BP 120/71 07/14/23 07:15 Pulse Ox 95 07/14/23 09:18 FiO2 Intake & Output 07/13/23 07/14/23 07/14/23 18:59 06:59 18:59 Output Total 20 Balance -20 Weight 74.843 kg Output: Emesis 20 Other: Voiding Method Diaper Diaper # Voids 3 # Bowel Movements 1 1 # Emeses 1 - Labs CBC & Chem 7: 07/14/23 10:35 07/14/23 10:35 Labs: Abnormal Lab Results - Last 24 Hours (Table) 07/13/23 07/13/23 07/13/23 Range/Units 14:10 14:10 15:03 WBC 13.9 H (3.8-10.6) k/uL Neutrophils # 11.4 H (1.3-7.7) k/uL Lymphocytes # (1.0-4.8) k/uL Monocytes # (0-1.0) k/uL Sodium 131 L (137-145) mmol/L Glucose 102 H (74-99) mg/dL Urine Protein 1+ H (Negative) Urine Blood Moderate H (Negative) Ur Leukocyte Esterase Small H (Negative) Urine RBC 7 H (0-5) /hpf Urine Bacteria Few H (None) /hpf Urine Mucus Rare H (None) /hpf 07/14/23 07/14/23 Range/Units 10:35 10:35 WBC 13.2 H (3.8-10.6) k/uL Neutrophils # 10.8 H (1.3-7.7) k/uL Lymphocytes # 0.9 L (1.0-4.8) k/uL Monocytes # 1.1 H (0-1.0) k/uL Sodium 129 L (137-145) mmol/L Glucose (74-99) mg/dL Urine Protein (Negative) Urine Blood (Negative) Ur Leukocyte Esterase (Negative) Urine RBC (0-5) /hpf Urine Bacteria (None) /hpf Urine Mucus (None) /hpf
--- NOTE | 2023-07-14 15:33 | XR ---
EXAMINATION TYPE: XR KUB DATE OF EXAM: 07/14/2023 Comparison: CT 07/13/2023 Clinical History: 78-year-old female severe constipation Findings: Lung bases are clear. Large rounded density projecting the pelvis either ongoing severe fecal impaction or prominent disten tion of the urinary bladder. Air-filled bowel loops persist throughout. Degenerated dextroconvex scoliosis of the lumbar spine. Impression: 1. Large rounded density filling the pelvis could represent ongoing EXTREMELY severe fecal impaction and/or prominent distention of the urinary bladder. Correlate for any interval stool disimpaction. Re rajesh to coronal images 65 [address] from yesterday. 2. Gassy bowel loops. Distal colonic obstruction due to fecal impaction remains possible.
[2023-07-14] MEDS: HEPARIN SODIUM,PORCINE 5,000 UNIT/ML 1 ML VIAL SQ SCH (18:24)
[2023-07-14] MEDS: SODIUM CHLORIDE 0.9% 1,000 ML IV SCH (20:39)
--- NOTE | 2023-07-14 23:19 | P.PN ---
Progress Note - Text Progress Note Date: 07/14/23 Informed by pharmacy that patient's blood cultures prelim results showing 2 of 2 cultures with Pseudomonas aeruginosa with no resistance genes detected. Zosyn was recommended and subsequently initiated.
[2023-07-15] MEDS: PIPERACILLIN-TAZOBACTAM 3.375 GM in SODIUM CHLORIDE 0.9% 100 ML IVPB SCH (00:49)
[2023-07-15] MEDS: LEVOTHYROXINE 75 MCG TAB PO SCH (06:33)
[2023-07-15] MEDS: LEVOTHYROXINE 100 MCG TAB PO SCH (06:33)
[2023-07-15 08:44] LABS: Basophils # (A) 0.04 X 10*3/uL (0.00-0.10); Basophils % (A) 0.4 %; Eosinophils # (A) 0.04 X 10*3/uL (0.04-0.35); Eosinophils % (A) 0.4 %; HCT 38.7 % (37.2-46.3); HGB 12.6 g/dL (12.0-15.0); Lymphocytes # (A) 0.87 X 10*3/uL (0.90-5.00); Lymphocytes % (A) 8.8 %; MCH 29.3 pg (27.0-32.0); MCHC 32.6 g/dL (32.0-37.0); Mean Platelet Volume 8.9 FL (9.5-12.2); Monocytes # (A) 0.98 X 10*3/uL (0.20-1.00); Monocytes % (A) 9.9 %; NRBC Per 100 WBC 0 X 10*3/uL (0.00-0.01); Neutrophils # (A) 7.94 X 10*3/uL (1.80-7.70); Neutrophils % (A) 80.2 %; Platelet Count 240 X 10*3/uL (140-440); RDW 13.8 % (11.5-14.5)
[2023-07-15 09:17] LABS: BUN/Creat Ratio 25.29 Ratio (12.00-20.00); Blood Urea Nitrogen 17.7 mg/dL (9.0-27.0); Calcium 8.7 mg/dL (8.7-10.3); Carbon Dioxide 20.7 mmol/L (21.6-31.8); Chloride 101 mmol/L (96-109); Glucose 54 mg/dL (70-110); Magnesium 1.9 mg/dL (1.5-2.4); Potassium 3.6 mmol/L (3.5-5.5); Sodium 137 mmol/L (135-145)
--- NOTE | 2023-07-15 14:20 | P.PN ---
Subjective Progress Note Date: 07/15/23 Hospital Course: 78-year-old female with known COPD, nicotine dependency, and paroxysmal atrial fibrillation who presented with abdominal pain and difficulty in breathing. Initial vital signs were within normal limits. Initial laboratory analysis included CBC, coags, CMP, urinalysis, and COVID testing and was remarkable for white blood cell count 13.9 and sodium of 131. Patient underwent CT of the abdomen and pelvis which demonstrated massive stool burden in the rectum with fecal disimpaction recommended. This is resulting in large and small bowel gaseous distention. Blood cultures came back positive for Pseudomonas in 2 out of 2 bottles. Started on Zosyn. Surgery has been consulted. Subjective: Patient seen and examined at bedside. No acute events overnight. Pain bowel movements. Denies any significant nausea. Pertinent positives and negatives as discussed above, a complete review of systems was performed and all other systems are negative. Vitals Signs Reviewed. General: Nontoxic, no distress, appears at stated age Derm: Warm, dry Head: Atraumatic, normocephalic, symmetric Eyes: EOMI, no lid lag, anicteric sclera Mouth: No lip lesion, mucus membranes moist Cardiovascular: S1S2 reg, no murmur Lungs: CTA bilateral, no rhonchi, no rales, no accessory muscle use Abdominal: Soft, distended, nontender to palpation, no guarding, no appreciable organomegaly Ext: No gross muscle atrophy, no edema, no contractures Neuro: CN II-XI grossly intact, no focal neuro deficits Psych: Alert, oriented, appropriate affect Data Reviewed Today: Pertinent Labs: WBC 9.9, creatinine 0.7, sodium 137, magnesium 1.9, blood glucose 54 Imaging: KUB pending Assessment and Plan: Fecal impaction with colonic distention, 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 Mild left-sided hydronephrosis secondary to distention Mild leukocytosis, likely reactive Pseudomonas bacteremia -Surgery consulted, pending recommendations, patient currently on clear liquid -Bisacodyl 10 nightly -Patient is having bowel movements -TSH ordered -Repeat blood cultures ordered -Continue IV Zosyn 3.375 g every 8 hours Mild hyponatremia, resolved -Normal saline at 75 cc an hour COPD without exacerbation Severe pulmonary hypertension Nicotine dependency -DuoNebs 4 times daily, albuterol 2.5 mg 4 times daily as needed -Nicotine patch 21 mcg daily Lupus -Maintain home prednisone 7.5 mg daily Atrial fibrillation Hypotension Hypothyroidism - Midodrin for SBP <100 -Follow blood pressures -Continue home levothyroxine History of generalized anxiety disorder Tardaitive dyskinesia -Continue Xanax 0.25 mg as needed, Resporal 2 mg at night, Celexa 30 mg daily Unsure why patient is on Plavix 75 mg daily DVT ppx: Subcu heparin Code status: FC Anticipated discharge place: pending clinical course Anticipated discharge time: pending clinical course Objective - Vital Signs Vital signs: Vital Signs Temp 98.4 F 07/15/23 07:15 Pulse 84 07/15/23 12:46 Resp 22 07/15/23 08:43 BP 100/60 07/15/23 07:15 Pulse Ox 96 07/15/23 09:26 FiO2 Intake & Output 07/14/23 07/15/23 07/15/23 18:59 06:59 18:59 Other: Voiding Method Diaper Diaper Diaper # Voids 2 4 # Bowel Movements 1 1 1 - Labs CBC & Chem 7: 07/15/23 03:02 07/15/23 03:02 Labs: Abnormal Lab Results - Last 24 Hours (Table) 07/15/23 07/15/23 Range/Units 03:02 03:02 MPV 8.9 L (9.5-12.2) FL Neutrophils # 7.94 H (1.80-7.70) X 10*3/uL Lymphocytes # 0.87 L (0.90-5.00) X 10*3/uL Carbon Dioxide 20.7 L (21.6-31.8) mmol/L Anion Gap 15.30 H (4.00-12.00) mmol/L BUN/Creatinine Ratio 25.29 H (12.00-20.00) Ratio Glucose 54 L (70-110) mg/dL Microbiology - Last 24 Hours (Table) 07/13/23 14:10 Blood Culture Gram Stain - Preliminary Blood Blood Culture - Preliminary Pseudomonas aeruginosa 07/13/23 14:25 Blood Culture Gram Stain - Preliminary Blood Blood Culture - Preliminary Pseudomonas aeruginosa Molecular ID
--- NOTE | 2023-07-15 14:23 | P.GSCN ---
History of Present Illness Consult date: 07/15/23 Reason for Consult: fecal impaction History of present illness: is a 78-year-old female who had complaints of abdominal pain. Her CAT scan is suggestive of significant fecal impaction. Patient had a large bowel movement earlier this morning. She states she is passing gas. She has no complaints of pain. Past Medical History Past Medical History: Atrial Fibrillation, COPD, Thyroid Disorder Additional Past Medical History / Comment(s): Lupus History of Any Multi-Drug Resistant Organisms: None Reported Past Surgical History: Unable to Obtain Additional Past Surgical History / Comment(s): Polyp removed from throat Past Anesthesia/Blood Transfusion Reactions: No Reported Reaction Past Psychological History: No Psychological Hx Reported Smoking Status: Current every day smoker Medications and Allergies Home Medications Medication Instructions Recorded Confirmed Type ALPRAZolam [Xanax] 0.25 mg PO DAILY PRN 01/07/22 07/13/23 History Citalopram Hydrobromide [CeleXA] 30 mg PO DAILY 01/07/22 07/13/23 History risperiDONE [RisperDAL] 2 mg PO HS 01/07/22 07/13/23 History ALPRAZolam [Xanax] 0.25 mg PO DAILY 07/13/23 07/13/23 History Albuterol Nebulized [Ventolin 2.5 mg INHALATION RT-QID PRN 07/13/23 07/13/23 History Nebulized] Albuterol Sulfate [Albuterol 2 puff PO RT-Q6H PRN 07/13/23 07/13/23 History Sulfate Hfa] Clopidogrel [Plavix] 75 mg PO DAILY 07/13/23 07/13/23 History Ipratropium/Albuter 20-100Mcg 1 puff INHALATION RT-QID 07/13/23 07/13/23 History [Combivent Respimat 20-100Mcg Inhaler] Lactulose 20 gm PO DAILY PRN 07/13/23 07/13/23 History Levothyroxine Sodium [Synthroid] 150 mcg PO MOWEFR 07/13/23 07/13/23 History Levothyroxine Sodium [Synthroid] 175 mcg PO SUTUTHSA 07/13/23 07/13/23 History Midodrine HCl [ProAmantine] 2.5 mg PO BID 07/13/23 07/13/23 History predniSONE 7.5 mg PO DAILY 07/13/23 07/13/23 History Allergies Allergy/AdvReac Type Severity Reaction Status Date / Time procaine [From Novocain] Allergy Dyspnea & Verified 07/13/23 13:56 Hallucinations Surgical - Exam Vital Signs Temp Pulse Resp BP Pulse Ox 98.9 F 85 18 144/73 95 07/13/23 13:32 07/13/23 13:32 07/13/23 13:32 07/13/23 13:32 07/13/23 13:32 - General well developed, well nourished, no distress - Eyes PERRL - ENT normal pinna - Neck no masses - Respiratory normal expansion - Cardiovascular Rhythm: regular - Abdomen Abdomen: soft, non tender Results - Labs 07/15/23 03:02 07/15/23 03:02 Abnormal Lab Results - Last 24 Hours (Table) 07/15/23 07/15/23 Range/Units 03:02 03:02 MPV 8.9 L (9.5-12.2) FL Neutrophils # 7.94 H (1.80-7.70) X 10*3/uL Lymphocytes # 0.87 L (0.90-5.00) X 10*3/uL Carbon Dioxide 20.7 L (21.6-31.8) mmol/L Anion Gap 15.30 H (4.00-12.00) mmol/L BUN/Creatinine Ratio 25.29 H (12.00-20.00) Ratio Glucose 54 L (70-110) mg/dL Microbiology - Last 24 Hours (Table) 07/13/23 14:10 Blood Culture Gram Stain - Preliminary Blood Blood Culture - Preliminary Pseudomonas aeruginosa 07/13/23 14:25 Blood Culture Gram Stain - Preliminary Blood Blood Culture - Preliminary Pseudomonas aeruginosa Molecular ID Diabetes panel 07/15/23 Range/Units 03:02 Sodium 137 (135-145) mmol/L Potassium 3.6 (3.5-5.5) mmol/L Chloride 101 (96-109) mmol/L Carbon Dioxide 20.7 L (21.6-31.8) mmol/L BUN 17.7 (9.0-27.0) mg/dL Creatinine 0.7 (0.6-1.5) mg/dL Glucose 54 L (70-110) mg/dL Calcium 8.7 (8.7-10.3) mg/dL Calcium panel 07/15/23 Range/Units 03:02 Calcium 8.7 (8.7-10.3) mg/dL Pituitary panel 07/15/23 Range/Units 03:02 Sodium 137 (135-145) mmol/L Potassium 3.6 (3.5-5.5) mmol/L Chloride 101 (96-109) mmol/L Carbon Dioxide 20.7 L (21.6-31.8) mmol/L BUN 17.7 (9.0-27.0) mg/dL Creatinine 0.7 (0.6-1.5) mg/dL Glucose 54 L (70-110) mg/dL Calcium 8.7 (8.7-10.3) mg/dL Adrenal panel 07/15/23 Range/Units 03:02 Sodium 137 (135-145) mmol/L Potassium 3.6 (3.5-5.5) mmol/L Chloride 101 (96-109) mmol/L Carbon Dioxide 20.7 L (21.6-31.8) mmol/L BUN 17.7 (9.0-27.0) mg/dL Creatinine 0.7 (0.6-1.5) mg/dL Glucose 54 L (70-110) mg/dL Calcium 8.7 (8.7-10.3) mg/dL Assessment and Plan Assessment: Constipation related to fecal impaction. Patient will have soapsuds enemas.
[2023-07-16] MEDS: predniSONE 2.5 MG TAB PO SCH (09:41)
[2023-07-16 10:35] LABS: African American GFR (CKD) >90 (>60 ml/min/1.73 sqM); Anion Gap -1 mmol/L; Blood Urea Nitrogen 10 mg/dL (7-17); Calcium 8.1 mg/dL (8.4-10.2); Carbon Dioxide 29 mmol/L (22-30); Chloride 105 mmol/L (98-107); Glucose 111 mg/dL (74-99); Magnesium 1.9 mg/dL (1.6-2.3); Non-African American GFR(CKD) >90 (>60 ml/min/1.73 sqM); Potassium 3.3 mmol/L (3.5-5.1); Sodium 133 mmol/L (137-145)
--- NOTE | 2023-07-16 15:56 | P.PN ---
Subjective Progress Note Date: 07/16/23 CHIEF COMPLAINT: Fecal impaction HISTORY OF PRESENT ILLNESS: Surgical service following in regards to fecal impaction. Patient received soapsuds enemas. She has had bowel movements. She denies any abdominal pain. Denies any nausea or vomiting. PHYSICAL EXAM: VITAL SIGNS: Reviewed. GENERAL: Well-developed in no acute distress. ABDOMEN: Soft. Nondistended. Nontender. NEUROLOGIC: Alert and oriented. Cranial nerves II through XII grossly intact. ASSESSMENT: 1. Fecal impaction PLAN: -Patient having bowel movements after soapsuds enemas -Advance diet to regular -Continue a good bowel regimen Physician Fruit Preserver note has been reviewed by physician. Signing provider agrees with the documented findings, assessment, and plan of care. Objective - Vital Signs Vital signs: Vital Signs Temp 98.2 F 07/16/23 14:00 Pulse 76 07/16/23 14:00 Resp 17 07/16/23 14:00 BP 91/60 07/16/23 14:00 Pulse Ox 97 07/16/23 14:00 FiO2 Intake & Output 07/15/23 07/16/23 07/16/23 18:59 06:59 18:59 Other: Voiding Method Diaper Diaper # Voids 2 3 # Bowel Movements 1 1 - Labs CBC & Chem 7: 07/15/23 03:02 07/16/23 09:58 Labs: Abnormal Lab Results - Last 24 Hours (Table) 07/16/23 Range/Units 09:58 Sodium 133 L (137-145) mmol/L Potassium 3.3 L (3.5-5.1) mmol/L Glucose 111 H (74-99) mg/dL Calcium 8.1 L (8.4-10.2) mg/dL Microbiology - Last 24 Hours (Table) 07/13/23 14:10 Blood Culture Gram Stain - Final Blood Blood Culture - Final Pseudomonas aeruginosa 07/13/23 14:25 Blood Culture Gram Stain - Final Blood Blood Culture - Final Pseudomonas aeruginosa Molecular ID
[2023-07-16 16:40] LABS: Glucose,Whole Blood 142 mg/dL (70-110)
--- NOTE | 2023-07-16 18:39 | P.PN ---
Progress Note - Text Progress Note Date: 07/16/23 Hospital Course: 78-year-old female with known COPD, nicotine dependency, and paroxysmal atrial fibrillation who presented with abdominal pain and difficulty in breathing. Initial vital signs were within normal limits. Initial laboratory analysis included CBC, coags, CMP, urinalysis, and COVID testing and was remarkable for white blood cell count 13.9 and sodium of 131. Patient underwent CT of the abdomen and pelvis which demonstrated massive stool burden in the rectum with fecal disimpaction recommended. This is resulting in large and small bowel gaseous distention. Blood cultures came back positive for Pseudomonas in 2 out of 2 bottles. Started on Zosyn. Surgery has been consulted. July 16, 2023: Spoke to the nurse patient patient had a very large bowel movement yesterday and today. Abdomen is soft. Repeat blood cultures the previous one being positive for Pseudomonas are pending. Otherwise patient is comfortable. Patient diet has been advanced to chopped diet. Patient had a good lunch and supper. Active Medications Albuterol/Ipratropium (Ipratropium-Albuterol 3 Ml Neb) 3 ml INHALATION RT-QID [facility] Last Admin: 07/16/23 16:36 Dose: 3 ml Albuterol/Ipratropium (Ipratropium-Albuterol 3 Ml Neb) 3 ml INHALATION RT-QID PRN PRN Reason: Shortness Of Breath Or Wheezing Last Admin: 07/14/23 03:40 Dose: 3 ml Alprazolam (Alprazolam 0.25 Mg Tab) 0.25 mg PO DAILY PRN PRN Reason: Anxiety Alprazolam (Alprazolam 0.25 Mg Tab) 0.25 mg PO DAILY [facility] Last Admin: 07/16/23 09:41 Dose: 0.25 mg Bisacodyl (Bisacodyl 10 Mg Supp) 10 mg RECTAL HS [facility] Last Admin: 07/15/23 20:17 Dose: Not Given Citalopram Hydrobromide (Citalopram Hydrobromide 10 Mg Tab) 30 mg PO DAILY [facility] Last Admin: 07/16/23 07:57 Dose: 30 mg Clopidogrel Bisulfate (Clopidogrel 75 Mg Tab) 75 mg PO DAILY [facility] Last Admin: 07/16/23 09:41 Dose: 75 mg Heparin Sodium (Porcine) (Heparin Sodium,Porcine 5,000 Unit/Ml 1 Ml Vial) 5,000 unit SQ Q8HR [facility] Last Admin: 07/16/23 17:00 Dose: 5,000 unit Sodium Chloride (Saline 0.9%) 1,000 mls @ 75 mls/hr IV .[id number] [facility] Last Admin: 07/15/23 15:13 Dose: 75 mls/hr Piperacillin Sod/Tazobactam (Sod 3.375 gm/ Sodium Chloride) 100 mls @ 25 mls/hr IVPB Q8HR [facility]; Protocol Last Admin: 07/16/23 15:49 Dose: 25 mls/hr Lactulose (Lactulose 20 Gm/30 Ml Cup) 20 gm PO DAILY PRN PRN Reason: Constipation Levothyroxine Sodium (Levothyroxine 100 Mcg Tab) 100 mcg PO [facility] Last Admin: 07/15/23 06:33 Dose: 100 mcg Levothyroxine Sodium (Levothyroxine 75 Mcg Tab) 150 mcg PO [id number] [facility] Last Admin: 07/16/23 06:33 Dose: 150 mcg Levothyroxine Sodium (Levothyroxine 75 Mcg Tab) 75 mcg PO [facility] Last Admin: 07/15/23 06:33 Dose: 75 mcg Midodrine (Midodrine 5 Mg Tab) 2.5 mg PO AC-BID [facility] Last Admin: 07/16/23 17:00 Dose: 2.5 mg Naloxone HCl (Naloxone 0.4 Mg/Ml 1 Ml Vial) 0.2 mg IVP Q2M PRN PRN Reason: Opioid Reversal Nicotine (Nicotine 21mg/24hr Patch) 1 patch TRANSDERM DAILY [facility] Last Admin: 07/16/23 07:57 Dose: 1 patch Petrolatum (Zinc Oxide Paste (Z-Guard) 1 Applic) 1 applic TOPICAL DAILY PRN; Protocol PRN Reason: Skin Irritation Prednisone (Prednisone 2.5 Mg Tab) 7.5 mg PO DAILY [facility] Last Admin: 07/16/23 09:41 Dose: Not Given Risperidone (Risperidone 2 Mg Tab) 2 mg PO HS [facility] Last Admin: 07/15/23 20:21 Dose: 2 mg On examination: VITAL SIGNS: [98.2, 94, 17, 91/60, 97% on 3 L] GENERAL APPEARANCE: Laying in bed awake comfortable HEENT: Normal external appearance of nose and ear. Oral cavity normal EYES: Pupils equal. Conjunctiva normal. NECK: JVD not raised. Mass not palpable. RESPIRATORY: Respiratory effort normal. Lungs clear to auscultation. CARDIOVASCULAR: First and second sounds normal. No edema. ABDOMEN: Soft. Liver and spleen not palpable. No tenderness. No mass palpable. PSYCHIATRY: Able to answer some simple questions MUSCULOSKELETAL: OA Investigations: July 16, 2023: Sodium 133. Potassium 3.3. Creatinine 0.55 TSH 1.4 White count 9.9 hemoglobin 12.6 platelets 240 Assessment and Plan: -Fecal impaction with colonic distention-resolved Patient had large bowel movements Clear liquids advance to chopped diet -Mild left-sided hydronephrosis secondary to fecaloma -Mild leukocytosis, likely reactive -Pseudomonas bacteremia causing sepsis Repeat blood cultures pending. IV Zosyn -Mild hyponatremia, resolved -Normal saline at 75 cc an hour -COPD without exacerbation, in a smoker DuoNeb -Severe secondary pulmonary hypertension due to COPD -Nicotine dependency Nicotine patch -Lupus prednisone 7.5 mg daily -Paroxysmal atrial fibrillation, currently sinus rhythm -Hypotension from decreased oral intake IV fluids. Midodrine -Hypothyroidism Synthroid -Generalized anxiety disorder Continue Xanax 0.25 mg as needed, Celexa -Tarditive dyskinesia -Full code Patient diet was advanced this afternoon. If tolerates well. Hopefully discharge tomorrow. Provided cultures come back.
[2023-07-17 06:18] LABS: Glucose,Whole Blood 109 mg/dL (70-110)
[2023-07-17 12:15] LABS: Glucose,Whole Blood 122 mg/dL (70-110)
--- NOTE | 2023-07-17 13:25 | P.PN ---
Subjective Progress Note Date: 07/17/23 CHIEF COMPLAINT: Fecal impaction HISTORY OF PRESENT ILLNESS: Surgical service following in regards to fecal impaction. Patient has had bowel movements. Denies any nausea or vomiting. Tolerating diet. PHYSICAL EXAM: VITAL SIGNS: Reviewed. GENERAL: Well-developed in no acute distress. ABDOMEN: Soft. Nondistended. Nontender. NEUROLOGIC: Alert and oriented. Cranial nerves II through XII grossly intact. ASSESSMENT: 1. Fecal impaction improved PLAN: Patient having bowel movements. She is tolerating diet. Patient is stable for discharge. Recommend good bowel regimen at discharge. Physician Card Grinder Helper note has been reviewed by physician. Signing provider agrees with the documented findings, assessment, and plan of care. Objective - Vital Signs Vital signs: Vital Signs Temp 97.6 F 07/17/23 07:27 Pulse 94 07/17/23 12:44 Resp 16 07/17/23 07:27 BP 93/58 07/17/23 07:27 Pulse Ox 93 L 07/17/23 08:43 FiO2 Intake & Output 07/16/23 07/17/23 07/17/23 18:59 06:59 18:59 Other: Voiding Method Diaper # Voids 2 1 # Bowel Movements 1 - Labs CBC & Chem 7: 07/15/23 03:02 07/16/23 09:58 Labs: Abnormal Lab Results - Last 24 Hours (Table) 07/16/23 07/17/23 Range/Units 16:38 12:14 POC Glucose (mg/dL) 142 H 122 H (70-110) mg/dL Microbiology - Last 24 Hours (Table) 07/15/23 09:00 Blood Culture - Preliminary Blood 07/15/23 09:00 Blood Culture - Preliminary Blood
[2023-07-17 16:47] LABS: Glucose,Whole Blood 143 mg/dL (70-110)
--- NOTE | 2023-07-17 17:50 | P.PN ---
Progress Note - Text Progress Note Date: 07/17/23 Hospital Course: 78-year-old female with known COPD, nicotine dependency, and paroxysmal atrial fibrillation who presented with abdominal pain and difficulty in breathing. Initial vital signs were within normal limits. Initial laboratory analysis included CBC, coags, CMP, urinalysis, and COVID testing and was remarkable for white blood cell count 13.9 and sodium of 131. Patient underwent CT of the abdomen and pelvis which demonstrated massive stool burden in the rectum with fecal disimpaction recommended. This is resulting in large and small bowel gaseous distention. Blood cultures came back positive for Pseudomonas in 2 out of 2 bottles. Started on Zosyn. Surgery has been consulted. July 16, 2023: Spoke to the nurse patient patient had a very large bowel movement yesterday and today. Abdomen is soft. Repeat blood cultures the previous one being positive for Pseudomonas are pending. Otherwise patient is comfortable. Patient diet has been advanced to chopped diet. Patient had a good lunch and supper. July 16: Patient comfortable. Laying in bed. Eating well. Cultures from the fourth are still pending. To determine antibiotics. Consult ID. Active Medications Albuterol/Ipratropium (Ipratropium-Albuterol 3 Ml Neb) 3 ml INHALATION RT-QID [facility] Last Admin: 07/17/23 17:19 Dose: Not Given Albuterol/Ipratropium (Ipratropium-Albuterol 3 Ml Neb) 3 ml INHALATION RT-QID PRN PRN Reason: Shortness Of Breath Or Wheezing Last Admin: 07/14/23 03:40 Dose: 3 ml Alprazolam (Alprazolam 0.25 Mg Tab) 0.25 mg PO DAILY PRN PRN Reason: Anxiety Alprazolam (Alprazolam 0.25 Mg Tab) 0.25 mg PO DAILY [facility] Last Admin: 07/17/23 07:30 Dose: 0.25 mg Bisacodyl (Bisacodyl 10 Mg Supp) 10 mg RECTAL HS [facility] Last Admin: 07/16/23 20:42 Dose: Not Given Citalopram Hydrobromide (Citalopram Hydrobromide 10 Mg Tab) 30 mg PO DAILY [facility] Last Admin: 07/17/23 07:31 Dose: 30 mg Clopidogrel Bisulfate (Clopidogrel 75 Mg Tab) 75 mg PO DAILY [facility] Last Admin: 07/17/23 07:30 Dose: 75 mg Heparin Sodium (Porcine) (Heparin Sodium,Porcine 5,000 Unit/Ml 1 Ml Vial) 5,000 unit SQ Q8HR [facility] Last Admin: 07/17/23 07:29 Dose: 5,000 unit Sodium Chloride (Saline 0.9%) 1,000 mls @ 75 mls/hr IV .[id number] [facility] Last Admin: 07/17/23 13:16 Dose: 75 mls/hr Piperacillin Sod/Tazobactam (Sod 3.375 gm/ Sodium Chloride) 100 mls @ 25 mls/hr IVPB Q8HR [facility]; Protocol Last Admin: 07/17/23 07:29 Dose: 25 mls/hr Lactulose (Lactulose 20 Gm/30 Ml Cup) 20 gm PO DAILY PRN PRN Reason: Constipation Levothyroxine Sodium (Levothyroxine 100 Mcg Tab) 100 mcg PO [facility] Last Admin: 07/17/23 06:22 Dose: 100 mcg Levothyroxine Sodium (Levothyroxine 75 Mcg Tab) 150 mcg PO [id number] [facility] Last Admin: 07/16/23 06:33 Dose: 150 mcg Levothyroxine Sodium (Levothyroxine 75 Mcg Tab) 75 mcg PO [facility] Last Admin: 07/17/23 06:22 Dose: 75 mcg Midodrine (Midodrine 5 Mg Tab) 2.5 mg PO AC-BID [facility] Last Admin: 07/17/23 07:29 Dose: 2.5 mg Naloxone HCl (Naloxone 0.4 Mg/Ml 1 Ml Vial) 0.2 mg IVP Q2M PRN PRN Reason: Opioid Reversal Nicotine (Nicotine 21mg/24hr Patch) 1 patch TRANSDERM DAILY [facility] Last Admin: 07/17/23 07:30 Dose: 1 patch Petrolatum (Zinc Oxide Paste (Z-Guard) 1 Applic) 1 applic TOPICAL DAILY PRN; Protocol PRN Reason: Skin Irritation Prednisone (Prednisone 2.5 Mg Tab) 7.5 mg PO DAILY [facility] Last Admin: 07/17/23 07:30 Dose: 7.5 mg Risperidone (Risperidone 2 Mg Tab) 2 mg PO HS [facility] Last Admin: 07/16/23 20:32 Dose: 2 mg On examination: VITAL SIGNS:] 18, 96 x 59, 94% room air GENERAL APPEARANCE: Laying in bed awake comfortable HEENT: Normal external appearance of nose and ear. Oral cavity normal. Hard of hearing EYES: Pupils equal. Conjunctiva normal. NECK: JVD not raised. Mass not palpable. RESPIRATORY: Respiratory effort normal. Lungs clear to auscultation. CARDIOVASCULAR: First and second sounds normal. No edema. ABDOMEN: Soft. Liver and spleen not palpable. No tenderness. No mass palpable. PSYCHIATRY: Able to answer some simple questions MUSCULOSKELETAL: OA Investigations: July 16, 2023: Sodium 133. Potassium 3.3. Creatinine 0.55 TSH 1.4 White count 9.9 hemoglobin 12.6 platelets 240 Assessment and Plan: -Care fecal impaction with colonic distention-resolved Having bowel movements Tolerating chopped diet -Mild left-sided hydronephrosis secondary to fecaloma -Mild leukocytosis, likely reactive -Pseudomonas bacteremia causing sepsis Culture initially positive on July 12. Repeat blood cultures pending from July 14. 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 Midodrine -Hypothyroidism Has 3 strengths of Synthroid prescribed at home. 100 mcg, 150 mcg, and 75 mcg. Will change to 100 mcg a day. -Generalized anxiety disorder Continue Xanax 0.25 mg as needed, Celexa -Tarditive dyskinesia -Full code -Disposition: Return home with daughter and Rosalinda rudolph Repeat blood cultures. ID consulted. Other medications to continue. Change Synthroid to 100 mcg a day
[2023-07-17 20:33] LABS: Glucose,Whole Blood 129 mg/dL (70-110)
[2023-07-17] MEDS: diphenhydrAMINE 25 MG CAP PO PRN (23:07)
[2023-07-18] MEDS: LEVOTHYROXINE 100 MCG TAB PO SCH (05:33)
[2023-07-18 06:10] LABS: Glucose,Whole Blood 84 mg/dL (70-110)
[2023-07-18 07:37] LABS: Basophils % (A) 0 %; Eosinophils # (A) 0.4 k/uL (0-0.7); Eosinophils % (A) 8 %; HCT 36.8 % (34.0-46.0); HGB 11.8 gm/dL (11.4-16.0); Lymphocytes # (A) 0.8 k/uL (1.0-4.8); Lymphocytes % (A) 13 %; MCH 29.5 pg (25.0-35.0); MCHC 32.2 g/dL (31.0-37.0); MCV 91.7 fL (80.0-100.0); Mean Platelet Volume 7.5; Monocytes # (A) 0.6 k/uL (0-1.0); Monocytes % (A) 10 %; Neutrophils # (A) 3.8 k/uL (1.3-7.7); Neutrophils % (A) 66 %; Platelet Count 250 k/uL (150-450); RBC 4.01 m/uL (3.80-5.40); RDW 13.6 % (11.5-15.5); WBC 5.8 k/uL (3.8-10.6)
[2023-07-18 08:04] LABS: African American GFR (CKD) >90 (>60 ml/min/1.73 sqM); Anion Gap 1 mmol/L; Blood Urea Nitrogen 7 mg/dL (7-17); Calcium 8.3 mg/dL (8.4-10.2); Carbon Dioxide 26 mmol/L (22-30); Chloride 113 mmol/L (98-107); Glucose 86 mg/dL (74-99); Non-African American GFR(CKD) >90 (>60 ml/min/1.73 sqM); Potassium 3.3 mmol/L (3.5-5.1); Sodium 140 mmol/L (137-145)
[2023-07-18 11:40] LABS: Glucose,Whole Blood 96 mg/dL (70-110)
[2023-07-18 13:38] VITALS: BP 117/65; TEMP 98
[2023-07-18 13:41] VITALS: BMI 24.3
--- NOTE | 2023-07-18 13:46 | P.PN ---
Subjective Progress Note Date: 07/18/23 CHIEF COMPLAINT: Fecal impaction HISTORY OF PRESENT ILLNESS: Surgical service following in regards to fecal impaction. Patient has had bowel movements. Denies any nausea or vomiting. Tolerating diet. Patient has positive blood cultures and being seen by infectious disease PHYSICAL EXAM: VITAL SIGNS: Reviewed. GENERAL: Well-developed in no acute distress. ABDOMEN: Soft. Nondistended. Nontender. NEUROLOGIC: Alert and oriented. Cranial nerves II through XII grossly intact. ASSESSMENT: 1. Fecal impaction improved PLAN: Patient having bowel movements. She is tolerating diet. Stable for discharge from surgical standpoint when medically cleared. Recommend good bowel regimen at discharge. Physician Playground Equipment Erector note has been reviewed by physician. Signing provider agrees with the documented findings, assessment, and plan of care. Objective - Vital Signs Vital signs: Vital Signs Temp 98.0 F 07/18/23 12:51 Pulse 75 07/18/23 12:51 Resp 17 07/18/23 12:51 BP 117/65 07/18/23 12:51 Pulse Ox 95 07/18/23 12:51 FiO2 Intake & Output 07/17/23 07/18/23 07/18/23 18:59 06:59 18:59 Weight 74.843 kg Other: Voiding Method Incontinent Incontinent # Voids 3 # Bowel Movements 3 - Labs CBC & Chem 7: 07/18/23 07:16 07/18/23 07:16 Labs: Abnormal Lab Results - Last 24 Hours (Table) 07/17/23 07/17/23 07/18/23 Range/Units 16:45 20:32 07:16 Lymphocytes # 0.8 L (1.0-4.8) k/uL Potassium (3.5-5.1) mmol/L Chloride (98-107) mmol/L POC Glucose (mg/dL) 143 H 129 H (70-110) mg/dL Calcium (8.4-10.2) mg/dL 07/18/23 Range/Units 07:16 Lymphocytes # (1.0-4.8) k/uL Potassium 3.3 L (3.5-5.1) mmol/L Chloride 113 H (98-107) mmol/L POC Glucose (mg/dL) (70-110) mg/dL Calcium 8.3 L (8.4-10.2) mg/dL Microbiology - Last 24 Hours (Table) 07/15/23 09:00 Blood Culture - Preliminary Blood 07/15/23 09:00 Blood Culture - Preliminary Blood
[2023-07-18 16:04] VITALS: PULSE 80; RESP 16
[2023-07-18 16:48] LABS: Glucose,Whole Blood 143 mg/dL (70-110)
--- NOTE | 2023-07-18 22:10 | P.DS ---
Providers Date of admission: 07/15/23 08:13 Expected date of discharge: 07/18/23 Attending physician: Americo Avila Consults: 07/14/23 16:58 Consult Physician Routine Consulting Provider: Sukhdeep Boykin Consult Reason/Comments: fecal impaction Do you want consulting provider notified?: Yes 07/17/23 17:42 Consult Physician Routine Consulting Provider: Rosetta Flores Consult Reason/Comments: Positive blood culture Do you want consulting provider notified?: Yes Primary care physician: [facility] Hospital Course: Hospital Course: 78-year-old female with known COPD, nicotine dependency, and paroxysmal atrial fibrillation who presented with abdominal pain and difficulty in breathing. Initial vital signs were within normal limits. Initial laboratory analysis included CBC, coags, CMP, urinalysis, and COVID testing and was remarkable for white blood cell count 13.9 and sodium of 131. Patient underwent CT of the abdomen and pelvis which demonstrated massive stool burden in the rectum with fecal disimpaction recommended. This is resulting in large and small bowel gaseous distention. Blood cultures came back positive for Pseudomonas in 2 out of 2 bottles. Started on Zosyn. Surgery has been consulted. July 16, 2023: Spoke to the nurse patient patient had a very large bowel movement yesterday and today. Abdomen is soft. Repeat blood cultures the previous one being positive for Pseudomonas are pending. Otherwise patient is comfortable. Patient diet has been advanced to chopped diet. Patient had a good lunch and supper. July 16: Patient comfortable. Laying in bed. Eating well. Cultures from the fourth are still pending. To determine antibiotics. Consult ID. July 17: Discussed with ID. Patient to be discharged on Flagyl and Cipro for 10 days. For the same 10 days patient Celexa will be held. Also spoke to patient's daughter over the phone. Discussed with the piano case and bench assembler. Patient otherwise comfortable. Eating well. Discussion and discharge planning more than 35 minutes At On examination: 98, 75, 17, 1 one 7 x 65, 95% room air that GENERAL APPEARANCE: Laying in bed awake comfortable HEENT: Normal external appearance of nose and ear. Oral cavity normal. Hard of hearing EYES: Pupils equal. Conjunctiva normal. NECK: JVD not raised. Mass not palpable. RESPIRATORY: Respiratory effort normal. Lungs clear to auscultation. CARDIOVASCULAR: First and second sounds normal. No edema. ABDOMEN: Soft. Liver and spleen not palpable. No tenderness. No mass palpable. PSYCHIATRY: Able to answer some simple questions MUSCULOSKELETAL: OA Investigations: July 17: White count 5.8 hemoglobin 9.8 platelets 250 creatinine 0.52 July 16, 2023: Sodium 133. Potassium 3.3. Creatinine 0.55 TSH 1.4 White count 9.9 hemoglobin 12.6 platelets 240 Assessment and Plan: -Severe air fecal impaction with colonic distention-resolved Having bowel movements Tolerating chopped diet -Mild left-sided hydronephrosis secondary to fecaloma -Pseudomonas bacteremia causing sepsis Culture initially positive on July 12. Repeat blood cultures pending from July 14. IV Zosyn Patient to be discharged on ciprofloxacin and Flagyl for 10 days. -Mild hyponatremia, resolved -COPD without exacerbation, in a smoker DuoNeb -Severe secondary pulmonary hypertension due to COPD -Nicotine dependency Nicotine patch -Lupus prednisone 7.5 mg daily -Paroxysmal atrial fibrillation, currently sinus rhythm -Hypotension from decreased oral intake IV fluids. Midodrine -Hypothyroidism Has 3 strengths of Synthroid prescribed at home. 100 mcg, 150 mcg, and 75 mcg. Will change to 100 mcg a day. -Generalized anxiety disorder Continue Xanax 0.25 mg as needed, Celexa -Tarditive dyskinesia -Full code -Disposition: Return home with daughter and Rosalinda rudolph Plan - Discharge Summary Discharge Rx Participant: Yes New Discharge Prescriptions: New Ciprofloxacin HCl [Cipro] 500 mg PO BID 10 Days #20 tab Levothyroxine Sodium 100 mcg PO DAILY #30 tab diphenhydrAMINE [Benadryl] 25 mg PO QID PRN cap PRN Reason: Itching metroNIDAZOLE [Flagyl] 500 mg PO TID #30 tab Nicotine 21Mg/24Hr Patch [Habitrol] 1 each TRANSDERM DAILY #30 patch Continue Ipratropium/Albuter 20-100Mcg [Combivent Respimat 20-100Mcg Inhaler] 1 puff INHALATION RT-QID Albuterol Sulfate [Albuterol Sulfate Hfa] 2 puff PO RT-Q6H PRN PRN Reason: Shortness Of Breath Albuterol Nebulized [Ventolin Nebulized] 2.5 mg INHALATION RT-QID PRN PRN Reason: Shortness Of Breath predniSONE 7.5 mg PO DAILY Clopidogrel [Plavix] 75 mg PO DAILY ALPRAZolam [Xanax] 0.25 mg PO DAILY PRN #3 tab PRN Reason: Anxiety Citalopram Hydrobromide [CeleXA] 30 mg PO DAILY Lactulose 20 gm PO DAILY PRN PRN Reason: Constipation Midodrine HCl [ProAmantine] 2.5 mg PO BID risperiDONE [RisperDAL] 2 mg PO HS #3 tab ALPRAZolam [Xanax] 0.25 mg PO DAILY #3 tab Discontinued Levothyroxine Sodium [Synthroid] 175 mcg PO SUTUTHSA Levothyroxine Sodium [Synthroid] 150 mcg PO MOWEFR Discharge Medication List Citalopram Hydrobromide [CeleXA] 30 mg PO DAILY 01/07/22 [History] Albuterol Nebulized [Ventolin Nebulized] 2.5 mg INHALATION RT-QID PRN 07/13/23 [History] Albuterol Sulfate [Albuterol Sulfate Hfa] 2 puff PO RT-Q6H PRN 07/13/23 [History] Clopidogrel [Plavix] 75 mg PO DAILY 07/13/23 [History] Ipratropium/Albuter 20-100Mcg [Combivent Respimat 20-100Mcg Inhaler] 1 puff INHALATION RT-QID 07/13/23 [History] Lactulose 20 gm PO DAILY PRN 07/13/23 [History] Midodrine HCl [ProAmantine] 2.5 mg PO BID 07/13/23 [History] predniSONE 7.5 mg PO DAILY 07/13/23 [History] ALPRAZolam [Xanax] 0.25 mg PO DAILY #3 tab 07/18/23 [Rx] ALPRAZolam [Xanax] 0.25 mg PO DAILY PRN #3 tab 07/18/23 [Rx] Ciprofloxacin HCl [Cipro] 500 mg PO BID 10 Days #20 tab 07/18/23 [Rx] Levothyroxine Sodium 100 mcg PO DAILY #30 tab 07/18/23 [Rx] Nicotine 21Mg/24Hr Patch [Habitrol] 1 each TRANSDERM DAILY #30 patch 07/18/23 [Rx] diphenhydrAMINE [Benadryl] 25 mg PO QID PRN cap 07/18/23 [Rx] metroNIDAZOLE [Flagyl] 500 mg PO TID #30 tab 07/18/23 [Rx] risperiDONE [RisperDAL] 2 mg PO HS #3 tab 07/18/23 [Rx] Follow up Appointment(s)/Referral(s): [facility] [[facility]FF] - As Needed Rickey Boswell MD [Primary Care Provider] - 1-2 days (office closed at time of D/C, please call Friday to make F/U appt) Rosetta Flores MD [STAFF PHYSICIAN] - 2 Weeks (office closed at time of d/c, please call office Friday to make follow up) Patient Instructions/Handouts: Constipation (DC), COPD (Chronic Obstructive Pulmonary Disease) (DC) Activity/Diet/Wound Care/Special Instructions: Hold celexa until pt is off oral antibiotics Discharge Disposition: HOME WITH HOME HEALTH SERVICES
== END 2023-07-18 19:00 | disposition home health service (06) | DRG 872 ==
LOC: EC 13:26 → 6NMEDSUR 16:47 → 4SSUR 17:04 → OBSVTOIN 07-15 08:13
PROVIDERS: ADMIT Hospitalist; ATTEND Hospitalist
DX: A41.52 Sepsis due to Pseudomonas (principal); E87.1 Hypo-osmolality and hyponatremia; J44.1 Chronic obstructive pulmonary disease with (acute) exacerbation; N13.30 Unspecified hydronephrosis; K56.41 Fecal impaction; F17.210 Nicotine dependence, cigarettes, uncomplicated; I95.9 Hypotension, unspecified; E03.9 Hypothyroidism, unspecified; Z79.890 Hormone replacement therapy; F41.1 Generalized anxiety disorder; I48.0 Paroxysmal atrial fibrillation; I27.23 Pulmonary hypertension due to lung diseases and hypoxia; I27.29 Other secondary pulmonary hypertension; G24.01 Drug induced subacute dyskinesia; Z11.52 Encounter for screening for COVID-19; D72.829 Elevated white blood cell count, unspecified; M32.9 Systemic lupus erythematosus, unspecified; G24.9 Dystonia, unspecified; B96.5 Pseudomonas (aeruginosa) (mallei) (pseudomallei) as the cause of diseases classified elsewhere; Z79.01 Long term (current) use of anticoagulants; Z79.02 Long term (current) use of antithrombotics/antiplatelets; Z79.899 Other long term (current) drug therapy; Z81.1 Family history of alcohol abuse and dependence; Z88.8 Allergy status to other drugs, medicaments and biological substances
CPT/HCPCS: 36415; 71046; 74018; 74177; 80048; 80053; 81001; 83605; 83735; 84443; 85025; 85610; 85730; 87040; 87077; 87186; 87635; 93005; 94640; 94760; 96365; 96375; 96376; 99285

== ENCOUNTER 2023-07-21 14:33 | Emergency (ER) | payer MEDICARE ==
[2023-07-21 14:42] VITALS: TEMP 98.8
--- NOTE | 2023-07-21 14:46 | ED ---
Weakness HPI - General Stated complaint: Weakness Time Seen by Provider: 07/21/23 14:36 Source: RN notes reviewed, old records reviewed - History of Present Illness Initial comments: This is a 78-year-old female to the ER today. This patient presents today for evaluation of weakness and appropriate persistent weakness and possibly increasing weaknesss this weakness and been going on for a while greater than a week but worsening, patient is having difficulty feeling at home prescriptions and allegedly has underlying infection and sepsis MD Complaint: generalized weakness, lack of energy, difficulty walking -: days(s) Location: generalized Severity: moderate Severity scale (1-10): 4 Quality: tingling, numbness Consistency: constant, intermittent Worsens with: none Context: new medication Associated Symptoms: denies other symptoms - Related Data Home Medications Medication Instructions Recorded Confirmed Citalopram Hydrobromide [CeleXA] 30 mg PO DAILY 01/07/22 07/21/23 Albuterol Nebulized [Ventolin 2.5 mg INHALATION RT-QID PRN 07/13/23 07/21/23 Nebulized] Albuterol Sulfate [Albuterol 2 puff INHALATION RT-Q6H PRN 07/13/23 07/21/23 Sulfate Hfa] Clopidogrel [Plavix] 75 mg PO DAILY 07/13/23 07/21/23 Ipratropium/Albuter 20-100Mcg 1 puff INHALATION RT-QID 07/13/23 07/21/23 [Combivent Respimat 20-100Mcg Inhaler] Lactulose 20 gm PO DAILY PRN 07/13/23 07/21/23 Midodrine HCl [ProAmantine] 2.5 mg PO BID 07/13/23 07/21/23 predniSONE 7.5 mg PO DAILY 07/13/23 07/21/23 Nicotine 21Mg/24Hr Patch [Habitrol] 1 patch TRANSDERM DAILY 07/21/23 07/21/23 Previous Rx's Medication Instructions Recorded ALPRAZolam [Xanax] 0.25 mg PO DAILY #3 tab 07/18/23 ALPRAZolam [Xanax] 0.25 mg PO DAILY PRN #3 tab 07/18/23 diphenhydrAMINE [Benadryl] 25 mg PO QID PRN cap 07/18/23 metroNIDAZOLE [Flagyl] 500 mg PO TID #30 tab 07/18/23 risperiDONE [RisperDAL] 2 mg PO HS #3 tab 07/18/23 Levothyroxine Sodium 100 mcg PO DAILY #30 tab 07/19/23 Ciprofloxacin HCl [Cipro] 500 mg PO Q12HR #20 tablet 07/21/23 Allergies Allergy/AdvReac Type Severity Reaction Status Date / Time procaine [From Novocain] Allergy Dyspnea & Verified 07/21/23 16:08 Hallucinations ciprofloxacin [From Cipro] AdvReac Rash/Hives Verified 07/21/23 16:08 Review of Systems ROS Statement: Those systems with pertinent positive or pertinent negative responses have been documented in the HPI. ROS Other: All systems not noted in ROS Statement are negative. Past Medical History Past Medical History: Atrial Fibrillation, COPD, Thyroid Disorder Additional Past Medical History / Comment(s): Lupus History of Any Multi-Drug Resistant Organisms: None Reported Past Surgical History: Unable to Obtain Additional Past Surgical History / Comment(s): Polyp removed from throat Past Anesthesia/Blood Transfusion Reactions: No Reported Reaction Past Psychological History: No Psychological Hx Reported Smoking Status: Current every day smoker General Exam General appearance: alert, in no apparent distress Head exam: Present: atraumatic, normocephalic, normal inspection Eye exam: Present: normal appearance, PERRL, EOMI. Absent: scleral icterus, conjunctival injection, periorbital swelling ENT exam: Present: normal exam, mucous membranes moist Neck exam: Present: normal inspection. Absent: tenderness, meningismus, lymphadenopathy Respiratory exam: Present: normal lung sounds bilaterally. Absent: respiratory distress, wheezes, rales, rhonchi, stridor Cardiovascular Exam: Present: regular rate, normal rhythm, normal heart sounds. Absent: systolic murmur, diastolic murmur, rubs, gallop, clicks GI/Abdominal exam: Present: soft, normal bowel sounds. Absent: distended, tenderness, guarding, rebound, rigid Extremities exam: Present: normal inspection, full ROM, normal capillary refill. Absent: tenderness, pedal edema, joint swelling, calf tenderness Back exam: Present: normal inspection Neurological exam: Present: alert, oriented X3, CN II-XII intact Psychiatric exam: Present: normal affect, normal mood Skin exam: Present: warm, dry, intact, normal color. Absent: rash Course Vital Signs 07/21/23 07/21/2324 14:38 16:00 17:07 Temperature 98.8 F Pulse Rate 81 87 78 Respiratory 20 18 16 Rate Blood Pressure 97/65 109/65 103/68 O2 Sat by Pulse 97 96 96 Oximetry 07/21/23 19:33 Temperature 98.8 F Pulse Rate 81 Respiratory 16 Rate Blood Pressure 103/68 O2 Sat by Pulse 96 Oximetry - Reevaluation(s) Reevaluation #1: 07/21/23 14:39 Records reviewed Reevaluation #2: Patient symptoms are unchanged here in the ER Reevaluation #3: Patient informed of results and questions answered Reevaluation #4: 07/21/23 14:39 Was pt. sent in by a medical professional or institution (, MEHRDAD, COSTUME DIRECTOR, urgent care, hospital, or custodial...) When possible be specific @ -no Did you speak to anyone other than the patient for history (EMS, parent, family, police, friend...)? What history was obtained from this source @ -no Did you review nursing and triage notes (agree or disagree)? Why? @ -agree Are old charts reviewed (outside hosp., previous admission, EMS record, old EKG, old radiological studies, urgent care reports/EKG's, custodial records)? Report findings @ -yes Differential Diagnosis (chest pain, altered mental status, abdominal pain women, abdominal pain men, vaginal bleeding, weakness, fever, dyspnea, syncope, headache, dizziness, GI bleed, back pain, seizure, CVA, palpatations, mental health, musculoskeletal)? @ -prior EKG interpreted by me (3pts min.). @ -yes X-rays interpreted by me (1pt min.). @ -no CT interpreted by me (1pt min.). @ -no U/S interpreted by me (1pt. min.). @ -no What testing was considered but not performed or refused? (CT, X-rays, U/S, labs)? Why? @ -none What meds were considered but not given or refused? Why? @ -none Did you discuss the management of the patient with other professionals (professionals i.e. MEHRDAD Marie, COSTUME DIRECTOR, lab, RT, psych nurse, nephrology social worker, visual merchandising director, teacher, legal officer, protective services case worker)? Give summary @ -no Was smoking cessation discussed for >3mins.? @ -no Were there social determinants of health that impacted care today? How? (Homelessness, low income, unemployed, alcoholism, drug addiction, transportation, low edu. Level, literacy, decrease access to med. care, retirement, rehab)? @ -none Was there de-escalation of care discussed even if they declined (Discuss DNR or withdrawal of care, Hospice)? DNR status @ -no What co-morbidities impacted this encounter? (DM, HTN, Smoking, COPD, CAD, Cancer, CVA, ARF, Chemo, Hep., AIDS, mental health diagnosis, sleep apnea, morbid obesity)? @ -none Was patient admitted / discharged? Hospital course, mention meds given and route, prescriptions, significant lab abnormalities, going to OR and other pertinent info. @ - 78 female to ER for evaluation of weakness pressure wound and ulcer of the sacral region. Patient will be admitted for wound care and IV antibiotics Admitted Was critical care preformed (if so, how long)? @ -no Undiagnosed new problem with uncertain prognosis? @ -no Drug Therapy requiring intensive monitoring for toxicity (Heparin, Nitro, Insulin, Cardizem)? @ -no Were any procedures done? @ -no Diagnosis/symptom? @ -Sacral ulcer pressure ulcer Acute, or Chronic, or Acute on Chronic? @ -Acute Uncomplicated (without systemic symptoms) or Complicated (systemic symptoms)? @ -Complicated Side effects of treatment? @ -no Exacerbation, Progression, or Severe Exacerbation? @ -exacerbation Poses a threat to life or bodily function? How? (Chest pain, [place], [place], pneumonia, PE, COPD, DKA, ARF, appy, cholecystitis, CVA, Diverticulitis, Homicidal, Suici vern, threat to staff... and all critical care pts) @ -yes extremes of age Reevaluation #5: Differential Weakness: Hypoglycemia, shock, sepsis, hyponatremia, anemia, infection, MO, ETOH, adverse medicine reaction, overdose, stroke, this is not meant to be an all-inclusive list. EKG Findings - EKG Comments: EKG Findings:: EKG is sinus 78 DE 214 QRS 80 QTc 317 - EKG Results: EKG: interpreted by ANDRÉSD Medical Decision Making - Medical Decision Making 78 female to ER for evaluation of weakness pressure wound and ulcer of the sacral region. Patient will be admitted for wound care and IV antibiotics - Lab Data Result diagrams: 07/21/23 15:08 07/21/23 15:08 Lab Results 07/21/23 07/21/23 07/21/23 Range/Units 15:08 15:08 15:08 WBC 9.6 (3.8-10.6) k/uL RBC 4.50 (3.80-5.40) m/uL Hgb 13.2 (11.4-16.0) gm/dL Hct 41.2 (34.0-46.0) % MCV 91.6 (80.0-100.0) fL MCH 29.3 (25.0-35.0) pg MCHC 32.0 (31.0-37.0) g/dL RDW 13.4 (11.5-15.5) % Plt Count 374 (150-450) k/uL MPV 7.2 Neutrophils % 61 % Lymphocytes % 21 % Monocytes % 8 % Eosinophils % 8 % Basophils % 0 % Neutrophils # 5.9 (1.3-7.7) k/uL Lymphocytes # 2.0 (1.0-4.8) k/uL Monocytes # 0.8 (0-1.0) k/uL Eosinophils # 0.8 H (0-0.7) k/uL Basophils # 0.0 (0-0.2) k/uL PT 10.7 (10.0-12.5) sec INR 1.0 (<1.2) APTT 23.0 (22.0-30.0) sec Sodium 135 L (137-145) mmol/L Potassium 4.2 (3.5-5.1) mmol/L Chloride 106 (98-107) mmol/L Carbon Dioxide 26 (22-30) mmol/L Anion Gap 3 mmol/L BUN 8 (7-17) mg/dL Creatinine 0.50 L (0.52-1.04) mg/dL Est GFR (CKD-EPI)AfAm >90 (>60 ml/min/1.73 sqM) Est GFR (CKD-EPI)NonAf >90 (>60 ml/min/1.73 sqM) Glucose 87 (74-99) mg/dL Plasma Lactic Acid Marshall (0.7-2.0) mmol/L Calcium 9.0 (8.4-10.2) mg/dL Phosphorus 3.8 (2.5-4.5) mg/dL Magnesium 1.9 (1.6-2.3) mg/dL Total Bilirubin 0.5 (0.2-1.3) mg/dL AST 19 (14-36) U/L ALT 10 (4-34) U/L Alkaline Phosphatase 78 (38-126) U/L Troponin I (0.000-0.034) ng/mL NT-Pro-B Natriuret Pep 638 pg/mL Total Protein 5.6 L (6.3-8.2) g/dL Albumin 3.3 L (3.5-5.0) g/dL 07/21/23 07/21/23 Range/Units 15:08 15:08 WBC (3.8-10.6) k/uL RBC (3.80-5.40) m/uL Hgb (11.4-16.0) gm/dL Hct (34.0-46.0) % MCV (80.0-100.0) fL MCH (25.0-35.0) pg MCHC (31.0-37.0) g/dL RDW (11.5-15.5) % Plt Count (150-450) k/uL MPV Neutrophils % % Lymphocytes % % Monocytes % % Eosinophils % % Basophils % % Neutrophils # (1.3-7.7) k/uL Lymphocytes # (1.0-4.8) k/uL Monocytes # (0-1.0) k/uL Eosinophils # (0-0.7) k/uL Basophils # (0-0.2) k/uL PT (10.0-12.5) sec INR (<1.2) APTT (22.0-30.0) sec Sodium (137-145) mmol/L Potassium (3.5-5.1) mmol/L Chloride (98-107) mmol/L Carbon Dioxide (22-30) mmol/L Anion Gap mmol/L BUN (7-17) mg/dL Creatinine (0.52-1.04) mg/dL Est GFR (CKD-EPI)AfAm (>60 ml/min/1.73 sqM) Est GFR (CKD-EPI)NonAf (>60 ml/min/1.73 sqM) Glucose (74-99) mg/dL Plasma Lactic Acid Marshall 0.9 (0.7-2.0) mmol/L Calcium (8.4-10.2) mg/dL Phosphorus (2.5-4.5) mg/dL Magnesium (1.6-2.3) mg/dL Total Bilirubin (0.2-1.3) mg/dL AST (14-36) U/L ALT (4-34) U/L Alkaline Phosphatase (38-126) U/L Troponin I <0.012 (0.000-0.034) ng/mL NT-Pro-B Natriuret Pep pg/mL Total Protein (6.3-8.2) g/dL Albumin (3.5-5.0) g/dL - EKG Data -: EKG Interpreted by Me Disposition Clinical Impression: Weakness, Bacteremia, Pressure ulcer of sacral region, stage 2 Disposition: HOME SELF-CARE Condition: Fair Instructions (If sedation given, give patient instructions): Bacteremia (ED) Prescriptions: Ciprofloxacin HCl [Cipro] 500 mg PO Q12HR #20 tablet Is patient prescribed a controlled substance at d/c from ED?: No Referrals: Rickey Boswell MD [Primary Care Provider] - 1-2 days Time of Disposition: 17:10
[2023-07-21] MEDS: SODIUM CHLORIDE 0.9% 1,000 ML IV STA (15:08)
[2023-07-21 15:44] LABS: Basophils % (A) 0 %; Eosinophils # (A) 0.8 k/uL (0-0.7); Eosinophils % (A) 8 %; HCT 41.2 % (34.0-46.0); HGB 13.2 gm/dL (11.4-16.0); Lymphocytes % (A) 21 %; MCH 29.3 pg (25.0-35.0); MCV 91.6 fL (80.0-100.0); Mean Platelet Volume 7.2; Monocytes # (A) 0.8 k/uL (0-1.0); Monocytes % (A) 8 %; Neutrophils # (A) 5.9 k/uL (1.3-7.7); Neutrophils % (A) 61 %; Platelet Count 374 k/uL (150-450); RDW 13.4 % (11.5-15.5); WBC 9.6 k/uL (3.8-10.6)
[2023-07-21 15:54] LABS: Prothrombin Time 10.7 sec (10.0-12.5)
[2023-07-21 15:57] LABS: ALT 10 U/L (4-34); AST 19 U/L (14-36); African American GFR (CKD) >90 (>60 ml/min/1.73 sqM); Albumin 3.3 g/dL (3.5-5.0); Alkaline Phosphatase 78 U/L (38-126); Anion Gap 3 mmol/L; Blood Urea Nitrogen 8 mg/dL (7-17); Carbon Dioxide 26 mmol/L (22-30); Chloride 106 mmol/L (98-107); Glucose 87 mg/dL (74-99); Magnesium 1.9 mg/dL (1.6-2.3); Non-African American GFR(CKD) >90 (>60 ml/min/1.73 sqM); Phosphorus 3.8 mg/dL (2.5-4.5); Potassium 4.2 mmol/L (3.5-5.1); Sodium 135 mmol/L (137-145); Total Bilirubin 0.5 mg/dL (0.2-1.3); Total Protein 5.6 g/dL (6.3-8.2)
[2023-07-21 16:05] LABS: NT-Pro-B-Type Natriuretic Pept 638 pg/mL
[2023-07-21] MEDS: PIPERACILLIN-TAZOBACTAM 3.375 GM in SODIUM CHLORIDE 0.9% 100 ML IVPB STA (17:03)
[2023-07-21 17:08] VITALS: BP 103/68; RESP 16
[2023-07-21] MEDS: CIPROFLOXACIN HCL 500 MG TAB PO STA (18:19)
[2023-07-21 19:34] VITALS: PULSE 81
== END 2023-07-21 19:33 | disposition home or self-care (01) ==
LOC: EC 14:33
DX: L89.152 Pressure ulcer of sacral region, stage 2 (principal); R53.1 Weakness; R78.81 Bacteremia; F17.200 Nicotine dependence, unspecified, uncomplicated; Z88.1 Allergy status to other antibiotic agents; Z88.8 Allergy status to other drugs, medicaments and biological substances
CPT/HCPCS: 36415; 93005; 83880; 80053; 83605; 83735; 84100; 84484; 85025; 85610; 85730; 99285; 96365; 96361 ×2; J2543

== ENCOUNTER 2023-07-30 14:05 | Observation (INO) | payer MEDICARE ==
[2023-07-30 16:12] LABS: Basophils # (A) 0.1 k/uL (0-0.2); Basophils % (A) 1 %; Eosinophils # (A) 0.2 k/uL (0-0.7); Eosinophils % (A) 1 %; HCT 40.6 % (34.0-46.0); HGB 13.1 gm/dL (11.4-16.0); Lymphocytes # (A) 0.5 k/uL (1.0-4.8); Lymphocytes % (A) 4 %; MCH 29.4 pg (25.0-35.0); MCHC 32.2 g/dL (31.0-37.0); MCV 91.4 fL (80.0-100.0); Mean Platelet Volume 7.3; Monocytes # (A) 0.5 k/uL (0-1.0); Monocytes % (A) 4 %; Neutrophils # (A) 12.8 k/uL (1.3-7.7); Neutrophils % (A) 90 %; Platelet Count 400 k/uL (150-450); RBC 4.44 m/uL (3.80-5.40); RDW 13.5 % (11.5-15.5); WBC 14.2 k/uL (3.8-10.6)
[2023-07-30 16:22] LABS: Partial Thromboplastin Time 24.8 sec (22.0-30.0); Prothrombin Time 10.8 sec (10.0-12.5)
[2023-07-30 16:39] LABS: ALT 9 U/L (4-34); AST 17 U/L (14-36); African American GFR (CKD) >90 (>60 ml/min/1.73 sqM); Albumin 3.5 g/dL (3.5-5.0); Alkaline Phosphatase 90 U/L (38-126); Anion Gap 4 mmol/L; Blood Urea Nitrogen 11 mg/dL (7-17); Carbon Dioxide 24 mmol/L (22-30); Chloride 108 mmol/L (98-107); Glucose 122 mg/dL (74-99); Non-African American GFR(CKD) 90 (>60 ml/min/1.73 sqM); Potassium 3.8 mmol/L (3.5-5.1); Sodium 136 mmol/L (137-145); Total Bilirubin 0.3 mg/dL (0.2-1.3); Total Protein 5.8 g/dL (6.3-8.2)
--- NOTE | 2023-07-30 16:46 | ED ---
SOB HPI - General Chief Complaint: Shortness of Breath Stated Complaint: difficulty breathing Time Seen by Provider: 07/30/23 14:10 Source: patient, EMS Mode of arrival: EMS Limitations: no limitations - History of Present Illness Initial Comments: 78-year-old female presents emergency department with shortness of breath. Has a history of COPD. She took a breathing treatment at home however she was still struggling to breathe and therefore called EMS. she is not on home oxygen. EMS found the patient at home struggling to breathe. she was 92% but very tachypneic. She was given Solu-Medrol and a breathing treatment en route to the hospital. Patient was just hospitalized for bacteremia. She is currently on antibiotics. Denies any chest pain. No history of heart failure. Daughter states that she has not had a bowel movement in 4 days. This was also an issue while the patient was hospitalized. She has been taking lactulose without any improvement in her symptoms - Related Data Home Medications Medication Instructions Recorded Confirmed Citalopram Hydrobromide [CeleXA] 30 mg PO DAILY 01/07/22 07/30/23 Albuterol Nebulized [Ventolin 2.5 mg INHALATION RT-QID PRN 07/13/23 07/30/23 Nebulized] Albuterol Sulfate [Albuterol 2 puff INHALATION RT-Q6H PRN 07/13/23 07/30/23 Sulfate Hfa] Clopidogrel [Plavix] 75 mg PO DAILY 07/13/23 07/30/23 Ipratropium/Albuter 20-100Mcg 1 puff INHALATION RT-QID 07/13/23 07/30/23 [Combivent Respimat 20-100Mcg Inhaler] Lactulose 20 gm PO DAILY PRN 07/13/23 07/30/23 Midodrine HCl [ProAmantine] 2.5 mg PO BID 07/13/23 07/30/23 predniSONE 7.5 mg PO DAILY 07/13/23 07/30/23 Nicotine 21Mg/24Hr Patch [Habitrol] 1 patch TRANSDERM DAILY 07/21/23 07/30/23 Previous Rx's Medication Instructions Recorded ALPRAZolam [Xanax] 0.25 mg PO DAILY #3 tab 07/18/23 ALPRAZolam [Xanax] 0.25 mg PO DAILY PRN #3 tab 07/18/23 diphenhydrAMINE [Benadryl] 25 mg PO QID PRN cap 07/18/23 risperiDONE [RisperDAL] 2 mg PO HS #3 tab 07/18/23 Levothyroxine Sodium 100 mcg PO DAILY #30 tab 07/19/23 Allergies Allergy/AdvReac Type Severity Reaction Status Date / Time procaine [From Novocain] Allergy Dyspnea & Verified 07/30/23 17:12 Hallucinations ciprofloxacin [From Cipro] AdvReac Rash/Hives Verified 07/30/23 17:12 Review of Systems ROS Statement: Those systems with pertinent positive or pertinent negative responses have been documented in the HPI. ROS Other: All systems not noted in ROS Statement are negative. Past Medical History Past Medical History: Atrial Fibrillation, COPD, Thyroid Disorder Additional Past Medical History / Comment(s): Lupus History of Any Multi-Drug Resistant Organisms: None Reported Past Surgical History: Unable to Obtain Additional Past Surgical History / Comment(s): Polyp removed from throat Past Anesthesia/Blood Transfusion Reactions: No Reported Reaction Past Psychological History: No Psychological Hx Reported Smoking Status: Current every day smoker General Exam Limitations: no limitations Course Vital Signs 07/30/23 07/30/23 07/30/23 14:08 15:44 17:29 Temperature 98.8 F 98.6 F Pulse Rate 75 76 76 Respiratory 30 H 24 28 H Rate Blood Pressure 103/67 100/76 117/74 O2 Sat by Pulse 97 93 L 95 Oximetry Medical Decision Making - Medical Decision Making Was pt. sent in by a medical professional or institution (, PA, MED DIR, urgent care, hospital, or assisted...) When possible be specific @ -[No] Did you speak to anyone other than the patient for history (EMS, parent, family, police, friend...)? What history was obtained from this source @ -[No] Did you review nursing and triage notes (agree or disagree)? Why? @ -[I reviewed and agree with nursing and triage notes] Were old charts reviewed (outside hosp., previous admission, EMS record, old EKG, old radiological studies, urgent care reports/EKG's, assisted records)? Report findings @ -[No old charts were reviewed] Differential Diagnosis (chest pain, altered mental status, abdominal pain women, abdominal pain men, vaginal bleeding, weakness, fever, dyspnea, syncope, headache, dizziness, GI bleed, back pain, seizure, CVA, palpatations, mental health, musculoskeletal)? @ -[not applicable] EKG interpreted by me (3pts min.). @ -'s and demonstrates sinus rhythm with a rate of 74. QRS 92. QTc of 421. Significant baseline artifact X-rays interpreted by me (1pt min.). @ -[None done] CT interpreted by me (1pt min.). @ -[None done] U/S interpreted by me (1pt. min.). @ -[None done] What testing was considered but not performed or refused? (CT, X-rays, U/S, labs)? Why? @ -[None] What meds were considered but not given or refused? Why? @ -[None] Did you discuss the management of the patient with other professionals (professionals i.e. , PA, MED DIR, lab, RT, psych nurse, pediatric social worker, garment sewing machine operator, teacher, drug abuse resistance education officer, case hardener)? Give summary @ -[No] Was smoking cessation discussed for >3mins.? @ -[No] Was critical care preformed (if so, how long)? @ -[No] Were there social determinants of health that impacted care today? How? (Homelessness, low income, unemployed, alcoholism, drug addiction, transportation, low edu. Level, literacy, decrease access to med. care, fpc, rehab)? @ -[No] Was there de-escalation of care discussed even if they declined (Discuss DNR or withdrawal of care, Hospice)? DNR status @ -[No] What co-morbidities impacted this encounter? (DM, HTN, Smoking, COPD, CAD, Cancer, CVA, ARF, Chemo, Hep., AIDS, mental health diagnosis, sleep apnea, morbid obesity)? @ -[None] Was patient admitted / discharged? Hospital course, mention meds given and route, prescriptions, significant lab abnormalities, going to OR and other pertinent info. @ -[hospital course] Undiagnosed new problem with uncertain prognosis? @ -[No] Drug Therapy requiring intensive monitoring for toxicity (Heparin, Nitro, Insulin, Cardizem)? @ -[No] Were any procedures done? @ -[No] Diagnosis/symptom? @ -[default] Acute, or Chronic, or Acute on Chronic? @ -[default] Uncomplicated (without systemic symptoms) or Complicated (systemic symptoms)? @ -[default] Side effects of treatment? @ -[No] Exacerbation, Progression, or Severe Exacerbation? @ -[No] Poses a threat to life or bodily function? How? (Chest pain, [place], [place], pneumonia, PE, COPD, DKA, ARF, appy, cholecystitis, CVA, Diverticulitis, Homicidal, Suicidal, threat to staff... and all critical care pts) @ -[No] - Lab Data Result diagrams: 07/30/23 15:57 07/30/23 15:57 Lab Results 07/30/23 07/30/23 07/30/23 Range/Units 15:57 15:57 15:57 WBC 14.2 H (3.8-10.6) k/uL RBC 4.44 (3.80-5.40) m/uL Hgb 13.1 (11.4-16.0) gm/dL Hct 40.6 (34.0-46.0) % MCV 91.4 (80.0-100.0) fL MCH 29.4 (25.0-35.0) pg MCHC 32.2 (31.0-37.0) g/dL RDW 13.5 (11.5-15.5) % Plt Count 400 (150-450) k/uL MPV 7.3 Neutrophils % 90 % Lymphocytes % 4 % Monocytes % 4 % Eosinophils % 1 % Basophils % 1 % Neutrophils # 12.8 H (1.3-7.7) k/uL Lymphocytes # 0.5 L (1.0-4.8) k/uL Monocytes # 0.5 (0-1.0) k/uL Eosinophils # 0.2 (0-0.7) k/uL Basophils # 0.1 (0-0.2) k/uL PT 10.8 (10.0-12.5) sec INR 1.0 (<1.2) APTT 24.8 (22.0-30.0) sec Sodium 136 L (137-145) mmol/L Potassium 3.8 (3.5-5.1) mmol/L Chloride 108 H (98-107) mmol/L Carbon Dioxide 24 (22-30) mmol/L Anion Gap 4 mmol/L BUN 11 (7-17) mg/dL Creatinine 0.57 (0.52-1.04) mg/dL Est GFR (CKD-EPI)AfAm >90 (>60 ml/min/1.73 sqM) Est GFR (CKD-EPI)NonAf 90 (>60 ml/min/1.73 sqM) Glucose 122 H (74-99) mg/dL Plasma Lactic Acid Marshall (0.7-2.0) mmol/L Calcium 9.0 (8.4-10.2) mg/dL Total Bilirubin 0.3 (0.2-1.3) mg/dL AST 17 (14-36) U/L ALT 9 (4-34) U/L Alkaline Phosphatase 90 (38-126) U/L Troponin I (0.000-0.034) ng/mL NT-Pro-B Natriuret Pep 477 pg/mL Total Protein 5.8 L (6.3-8.2) g/dL Albumin 3.5 (3.5-5.0) g/dL 07/30/23 07/30/23 Range/Units 15:57 15:57 WBC (3.8-10.6) k/uL RBC (3.80-5.40) m/uL Hgb (11.4-16.0) gm/dL Hct (34.0-46.0) % MCV (80.0-100.0) fL MCH (25.0-35.0) pg MCHC (31.0-37.0) g/dL RDW (11.5-15.5) % Plt Count (150-450) k/uL MPV Neutrophils % % Lymphocytes % % Monocytes % % Eosinophils % % Basophils % % Neutrophils # (1.3-7.7) k/uL Lymphocytes # (1.0-4.8) k/uL Monocytes # (0-1.0) k/uL Eosinophils # (0-0.7) k/uL Basophils # (0-0.2) k/uL PT (10.0-12.5) sec INR (<1.2) APTT (22.0-30.0) sec Sodium (137-145) mmol/L Potassium (3.5-5.1) mmol/L Chloride (98-107) mmol/L Carbon Dioxide (22-30) mmol/L Anion Gap mmol/L BUN (7-17) mg/dL Creatinine (0.52-1.04) mg/dL Est GFR (CKD-EPI)AfAm (>60 ml/min/1.73 sqM) Est GFR (CKD-EPI)NonAf (>60 ml/min/1.73 sqM) Glucose (74-99) mg/dL Plasma Lactic Acid Marshall 0.9 (0.7-2.0) mmol/L Calcium (8.4-10.2) mg/dL Total Bilirubin (0.2-1.3) mg/dL AST (14-36) U/L ALT (4-34) U/L Alkaline Phosphatase (38-126) U/L Troponin I <0.012 (0.000-0.034) ng/mL NT-Pro-B Natriuret Pep pg/mL Total Protein (6.3-8.2) g/dL Albumin (3.5-5.0) g/dL Disposition Clinical Impression: COPD exacerbation, Constipation Disposition: ADMITTED IP TO THIS [facility] Condition: Stable Is patient prescribed a controlled substance at d/c from ED?: No Referrals: Rickey Boswell MD [Primary Care Provider] - 1-2 days Time of Disposition: 19:26 Decision to Admit Reason: Admit from EC Decision Date: 07/30/23 Decision Time: 19:26
[2023-07-30 16:47] LABS: NT-Pro-B-Type Natriuretic Pept 477 pg/mL
--- NOTE | 2023-07-30 18:07 | XR ---
EXAMINATION TYPE: XR KUB DATE OF EXAM: 07/30/2023 5:46 PM CLINICAL INDICATION:Female, 78 years old with history of abd pain; [facility] COMPARISON: 07/14/2023. TECHNIQUE: One radiographic view of the abdomen was obtained. FINDINGS: Gaseous dilation of bowel throughout the abdomen. Large fecaloma in the rectum measuring up to 12.4 cm transverse dimension. The bowel gas pattern is nonspecific without dilated loops of small or large bowel. There is no evidence for organomegaly or pneumoperitoneum. The osseous structures a re intact. No abnormal calcifications are present. Fecal material and gas are demonstrated throughou t the colon and rectum. Scoliosis changes spine. IMPRESSION: Large stool burden in the rectum with suspected upstream obstruction in gaseous dilation of bowel.
--- NOTE | 2023-07-30 18:16 | XR ---
EXAMINATION TYPE: XR chest 2V DATE OF EXAM: 07/30/2023 5:46 PM CLINICAL INDICATION:Female, 78 years old with history of difficulty breathing; [facility] COMPARISON: Chest radiographs from 07/13/2023 TECHNIQUE: XR chest 2V Frontal and lateral views of the chest. FINDINGS: Lungs/Pleura: There is flattening of the diaphragm with increased lucency of the lungs. No evidence o f pneumothorax, pleural effusion or focal consolidation. Pulmonary vascularity: Unremarkable. Heart/mediastinum: Cardiomediastinal silhouette is unremarkable. Musculoskeletal: No acute osseous pathology. IMPRESSION: 1. No acute cardiopulmonary disease process. 2. COPD changes.
[2023-07-30] MEDS ORDERED: NALOXONE 0.4 MG/ML 1 ML VIAL IV PRN (19:26)
[2023-07-30] MEDS: IPRATROPIUM-ALBUTEROL 3 ML NEB INHALATION STA (19:57)
[2023-07-30] MEDS ORDERED: IPRATROPIUM-ALBUTEROL 3 ML NEB INHALATION SCH (20:00)
[2023-07-30] MEDS: MAGNESIUM SULFATE-D5W PMX 1 GM in DEXTROSE/WATER 1 100ML.BAG IVPB ONE (20:48)
[2023-07-30] MEDS ORDERED: diphenhydrAMINE 25 MG CAP PO PRN (21:41)
[2023-07-30] MEDS ORDERED: LACTULOSE 20 GM/30 ML CUP PO PRN (21:41)
[2023-07-30] MEDS ORDERED: IPRATROPIUM-ALBUTEROL 3 ML NEB INHALATION PRN (22:29)
--- NOTE | 2023-07-30 22:31 | P.HPIM ---
History of Present Illness H&P Date: 07/30/23 Patient is a 78-year-old female with a PMH of COPD, paroxysmal A-fib, and hypothyroidism who presents to the emergency room with complaints of shortness of breath. Patient notes that she has been experiencing gradually worsening shortness of breath for the past 1 to 2 weeks. Of note, the patient was recently admitted for Pseudomonas bacteremia with severe fecal impaction and completed a 10-day course of ciprofloxacin and Flagyl on 07/27. She denies experiencing abdominal discomfort fever, chills, chest pain, nausea, vomiting. She does report persistent constipation with minimal bowel movements over the past several days. Upon EMS arrival, the patient was in respiratory distress with SpO2 of 92%. She was given breathing treatments enroute to the hospital which significantly alleviated her symptoms. She notes that her breathing has improved at the time of interview. Patient notes that she lives with her daughter and her family. Chest x-ray in the emergency room was consistent with chronic COPD with a KUB x- ray showing large stool burden with suspected upstream obstruction. EKG revealed sinus rhythm at 74 bpm with a first-degree AV block and no other ST/T wave changes noted as reviewed by me. Laboratory evaluation was remarkable for leukocytosis of 14.2, sodium 136, chloride 108, glucose 122, troponin less than 0.012, and proBNP 477. ED documentation reviewed and case discussed with ED provider. Review of systems: Pertinent positives and negatives as discussed in HPI, a complete review of systems was performed and all other systems are negative. Physical examination: Vital signs reviewed General: non toxic, no distress, appears older than stated age, normal weight Derm: no unusual rashes/lesions, warm Head: atraumatic, normocephalic, symmetric Eyes: EOMI, no lid lag, anicteric sclera, pupils equal round reactive to light ENT: Nose and ears atraumatic Neck: No cervical lymphadenopathy, trachea midline, supple Mouth: no lip lesion, mucus membranes moist Cardiovascular: S1S2 reg, no murmur, positive dorsalis pedis pulse bilateral, no edema Lungs: Expiratory wheezing with poor air entry bilaterally, no accessory muscle use Abdominal: soft, nontender to palpation, no guarding Ext: muscle strength 4 out of 5 in all 4 extremities grossly, no gross muscle atrophy, no contractures, Neuro: CN II-XI grossly intact, no gross focal neuro deficits Psych: Alert, oriented, appropriate affect Assessment: Acute COPD exacerbation with acute hypoxic respiratory failure Fecal impaction Leukocytosis, likely due to acute stressor with no signs of active infection at this time Chronic conditions: Paroxysmal A-fib, hypothyroidism Imaging: Chest x-ray in the emergency room was consistent with chronic COPD with a KUB x- ray showing large stool burden with suspected upstream obstruction. EKG revealed sinus rhythm at 74 bpm with a first-degree AV block and no other ST/T wave changes noted as reviewed by me. Data Review: Laboratory evaluation was remarkable for leukocytosis of 14.2, sodium 136, chloride 108, glucose 122, troponin less than 0.012, and proBNP 477. Plan: Continue with Solu-Medrol 40 mg every 8 hourly Continue DuoNebs [id number] and as needed Status post Fleet enema in the emergency room Continue with lactulose 20 g daily Pulmonary consulted Cardiac monitoring Continue home Synthroid dose DVT prophylaxis: Lovenox subcu The patient is admitted with an anticipated greater than 2 midnight stay for evaluation of COPD exacerbation CODE STATUS: Full Code Discussed with: Patient Anticipated discharge place: Home Past Medical History Past Medical History: Atrial Fibrillation, COPD, Thyroid Disorder Additional Past Medical History / Comment(s): Lupus History of Any Multi-Drug Resistant Organisms: None Reported Past Surgical History: Unable to Obtain Additional Past Surgical History / Comment(s): Polyp removed from throat Past Anesthesia/Blood Transfusion Reactions: No Reported Reaction Past Psychological History: No Psychological Hx Reported Smoking Status: Current every day smoker - Past Family History Father Family Medical History: Cancer Medications and Allergies Home Medications Medication Instructions Recorded Confirmed Type Citalopram Hydrobromide [CeleXA] 30 mg PO DAILY 01/07/22 07/30/23 History Albuterol Nebulized [Ventolin 2.5 mg INHALATION RT-QID PRN 07/13/23 07/30/23 History Nebulized] Albuterol Sulfate [Albuterol 2 puff INHALATION RT-Q6H PRN 07/13/23 07/30/23 History Sulfate Hfa] Clopidogrel [Plavix] 75 mg PO DAILY 07/13/23 07/30/23 History Ipratropium/Albuter 20-100Mcg 1 puff INHALATION RT-QID 07/13/23 07/30/23 History [Combivent Respimat 20-100Mcg Inhaler] Lactulose 20 gm PO DAILY PRN 07/13/23 07/30/23 History Midodrine HCl [ProAmantine] 2.5 mg PO BID 07/13/23 07/30/23 History predniSONE 7.5 mg PO DAILY 07/13/23 07/30/23 History ALPRAZolam [Xanax] 0.25 mg PO DAILY #3 tab 07/18/23 07/30/23 Rx ALPRAZolam [Xanax] 0.25 mg PO DAILY PRN #3 tab 07/18/23 07/30/23 Rx diphenhydrAMINE [Benadryl] 25 mg PO QID PRN cap 07/18/23 07/30/23 Rx risperiDONE [RisperDAL] 2 mg PO HS #3 tab 07/18/23 07/30/23 Rx Levothyroxine Sodium 100 mcg PO DAILY #30 tab 07/19/23 07/30/23 Rx Nicotine 21Mg/24Hr Patch [Habitrol] 1 patch TRANSDERM DAILY 07/21/23 07/30/23 History Allergies Allergy/AdvReac Type Severity Reaction Status Date / Time procaine [From Novocain] Allergy Dyspnea & Verified 07/30/23 17:12 Hallucinations ciprofloxacin [From Cipro] AdvReac Rash/Hives Verified 07/30/23 17:12 Physical Exam Vitals: Vital Signs Temp Pulse Resp BP Pulse Ox 07/30/23 20:10 79 07/30/23 20:00 74 07/30/23 17:29 76 28 H 117/74 95 07/30/23 15:44 98.6 F 76 24 100/76 93 L 07/30/23 14:08 98.8 F 75 30 H 103/67 97 Intake and Output 07/30/23 07/30/23 07/30/23 06:59 14:59 22:59 Other: Weight 63.503 kg Results CBC & Chem 7: 07/30/23 15:57 07/30/23 15:57 Labs: Abnormal Lab Results - Last 24 Hours (Table) 07/30/23 07/30/23 Range/Units 15:57 15:57 WBC 14.2 H (3.8-10.6) k/uL Neutrophils # 12.8 H (1.3-7.7) k/uL Lymphocytes # 0.5 L (1.0-4.8) k/uL Sodium 136 L (137-145) mmol/L Chloride 108 H (98-107) mmol/L Glucose 122 H (74-99) mg/dL Total Protein 5.8 L (6.3-8.2) g/dL
[2023-07-30] MEDS: MIDODRINE 5 MG TAB PO SCH (22:40)
[2023-07-30] MEDS: risperiDONE 2 MG TAB PO SCH (22:40)
[2023-07-30] MEDS: IPRATROPIUM-ALBUTEROL 3 ML NEB INHALATION SCH (23:19)
--- NOTE | 2023-07-31 03:20 | P.CNPUL ---
History of Present Illness Consult date: 07/31/23 Requesting physician: Tamiko Qureshi Reason for consult: COPD Chief complaint: Shortness of breath History of present illness: Patient is a 78-year-old white female with past medical history significant for COPD, current ongoing tobacco smoker, hypothyroidism, atrial fibrillation. Her primary care provider is a Dr. Boswell out of [place]. The patient herself is not a great historian. Of note, patient had a recent hospitalization earlier this month with a similar presentation, ended up having a fecal impaction and was disimpacted. She was also noted to have pseudomonal bacteremia. Treated in patient with IV Zosyn and then transitioned to 10-day course of oral ciprofloxacin to be completed outpatient. She lives with her daughter. Yesterday evening, patient was found to be short of breath while at home. Her daughter had called EMS, and on arrival SpO2 was noted to be 92% on room air and the patient was very tachypneic. Reportedly wheezing. Patient is currently in the emergency department, room 13. She is on room air, in no acute respiratory distress. SpO2 is 96%. Afebrile. Nontachycardic. Blood pressure normotensive. Chest x-ray on arrival does not show any acute cardiopulmonary disease process. There is hyperinflation and flattening of the diaphragm consistent with COPD. She utilizes Combivent inhaler at home. States that her shortness of breath started a long time ago, and is unable to elaborate on more recent events. She continues to smoke cigarettes, approximately 1 pack/day. Denies any URI-like symptoms. Denies any fevers, coughing, sputum production, chest pain. She continues to have issues with constipation, last bowel movement was apparently 4 days ago. Currently denies any abdominal pain, nausea or vomiting. KUB x-ray showed large stool burden in the rectum with suspected upstream obstruction in gaseous dilation of the bowel. She did receive an enema while in the emergency department, producing a moderate amount of stool. Abdomen is now flat, nondistended, and nontender. CBC on arrival: WBC count 14.2, hemoglobin 13.1, hematocrit 40.6, platelets 400. BMP unremarkable. EKG shows a supraventricular rhythm without any acute ischemic changes. Troponin less than 0.012. NT proBNP 477. Vital signs are stable. Review of Systems REVIEW OF SYSTEMS: CONSTITUTIONAL: Denies any recent significant weight loss or weight gain. EYES: Denies change in vision. EARS, NOSE, MOUTH, THROAT: Denies headaches, denies sore throat. CARDIOVASCULAR: Denies chest pain, palpitations or syncopal episodes. RESPIRATORY: See HPI GASTROINTESTINAL: Denies change in appetite, abdominal pain, nausea and vomiting, or diarrhea. Admits constipation as reported in HPI GENITOURINARY: Denies hematuria, denies infections. MUSKULOSKELETAL: Denies pain, denies swelling. INTEGUMENTARY: Denies rash, denies eczema. NEUROLOGICAL: Denies recent memory loss, no recent seizure activity. PSYCHIATRIC: Denies anxiety, denies depression. HEMATOLOGIC/LYMPHATIC: Denies anemia, denies enlarged lymph node Past Medical History Past Medical History: Atrial Fibrillation, COPD, Thyroid Disorder Additional Past Medical History / Comment(s): Lupus History of Any Multi-Drug Resistant Organisms: None Reported Past Surgical History: Unable to Obtain Additional Past Surgical History / Comment(s): Polyp removed from throat Past Anesthesia/Blood Transfusion Reactions: No Reported Reaction Past Psychological History: No Psychological Hx Reported Smoking Status: Current every day smoker - Past Family History Father Family Medical History: Cancer Medications and Allergies Home Medications Medication Instructions Recorded Confirmed Type Citalopram Hydrobromide [CeleXA] 30 mg PO DAILY 01/07/22 07/30/23 History Albuterol Nebulized [Ventolin 2.5 mg INHALATION RT-QID PRN 07/13/23 07/30/23 History Nebulized] Albuterol Sulfate [Albuterol 2 puff INHALATION RT-Q6H PRN 07/13/23 07/30/23 History Sulfate Hfa] Clopidogrel [Plavix] 75 mg PO DAILY 07/13/23 07/30/23 History Ipratropium/Albuter 20-100Mcg 1 puff INHALATION RT-QID 07/13/23 07/30/23 History [Combivent Respimat 20-100Mcg Inhaler] Lactulose 20 gm PO DAILY PRN 07/13/23 07/30/23 History Midodrine HCl [ProAmantine] 2.5 mg PO BID 07/13/23 07/30/23 History predniSONE 7.5 mg PO DAILY 07/13/23 07/30/23 History ALPRAZolam [Xanax] 0.25 mg PO DAILY #3 tab 07/18/23 07/30/23 Rx ALPRAZolam [Xanax] 0.25 mg PO DAILY PRN #3 tab 07/18/23 07/30/23 Rx diphenhydrAMINE [Benadryl] 25 mg PO QID PRN cap 07/18/23 07/30/23 Rx risperiDONE [RisperDAL] 2 mg PO HS #3 tab 07/18/23 07/30/23 Rx Levothyroxine Sodium 100 mcg PO DAILY #30 tab 07/19/23 07/30/23 Rx Nicotine 21Mg/24Hr Patch [Habitrol] 1 patch TRANSDERM DAILY 07/21/23 07/30/23 History Allergies Allergy/AdvReac Type Severity Reaction Status Date / Time procaine [From Novocain] Allergy Dyspnea & Verified 07/30/23 17:12 Hallucinations ciprofloxacin [From Cipro] AdvReac Rash/Hives Verified 07/30/23 17:12 Physical Exam Vitals: Vital Signs Temp Pulse Resp BP Pulse Ox 07/31/23 01:14 67 18 124/72 96 07/30/23 23:33 79 18 151/60 95 07/30/23 23:32 66 07/30/23 23:19 71 07/30/23 21:30 64 18 114/78 95 07/30/23 20:10 79 07/30/23 20:00 74 07/30/23 17:29 76 28 H 117/74 95 07/30/23 15:44 98.6 F 76 24 100/76 93 L 07/30/23 14:08 98.8 F 75 30 H 103/67 97 Intake and Output 07/30/23 07/30/23 07/31/23 14:59 22:59 06:59 Other: Weight 63.503 kg GENERAL EXAM: Alert, 78-year-old white female, delayed verbal response, large protruding tongue, comfortable in no apparent distress. HEAD: Normocephalic and atraumatic EYES: Normal reaction of pupils, equal size. NOSE: Clear with pink turbinates. THROAT: No erythema or exudates. NECK: No masses, no JVD. CHEST: No chest wall deformity. LUNGS: Equal air entry with minimal scattered rhonchi bilaterally and throughout. On room air. SpO2 96%. No conversational dyspnea or accessory muscle use while at rest CVS: S1 and S2 normal with no audible murmur, regular rhythm. No extra heart sounds ABDOMEN: Abdomen flat and nondistended, active bowel sounds, no guarding or rigidity, no appreciated organomegaly. SPINE: No scoliosis or deformity SKIN: No rashes CENTRAL NERVOUS SYSTEM: No focal deficits, tone is normal in all 4 extremities. EXTREMITIES: There is no peripheral edema, clubbing, or cyanosis. Peripheral pulses are intact. Results - Laboratory Findings CBC and BMP: 07/30/23 15:57 07/30/23 15:57 PT/INR, D-dimer PT 10.8 sec (10.0-12.5) 07/30/23 15:57 INR 1.0 (<1.2) 07/30/23 15:57 Abnormal lab findings: Abnormal Labs 07/30/23 07/30/23 15:57 15:57 WBC 14.2 H Neutrophils # 12.8 H Lymphocytes # 0.5 L Sodium 136 L Chloride 108 H Glucose 122 H Total Protein 5.8 L - Diagnostic Findings Chest x-ray: image reviewed Assessment and Plan Assessment: Acute dyspnea, possibly secondary to mild acute COPD exacerbation, chest x-ray does not show any focal infiltrates or any acute cardiopulmonary process, there is hyperinflation and flattening of the diaphragm consistent with COPD. Patient denies any infectious-like symptoms. Fecal impaction, status post enema and resolution of symptoms Acute leukocytosis, possibly reactive to above Recent treatment for pseudomonal aeruginosa bacteremia, reportedly completed a course of treatment with ciprofloxacin Chronic ongoing tobacco dependence, reportedly current 1 pack/day smoker History of COVID-19 pneumonia History of paroxysmal atrial fibrillation, not currently on any anticoagulation History of hypothyroidism Plan: Patient's medications, labs, imaging reviewed Currently on room air Continue combination of DuoNebs [id number] and IV Solu-Medrol. Smoking cessation counseling performed and nicotine replacement offered We will continue to follow I have personally seen and examined the patient, performed the documentation and the assessment and plan as written. Number of minutes spent on the visit:20 Time with Patient: Greater than 30
[2023-07-31 08:38] LABS: BUN/Creat Ratio 16.29 Ratio (12.00-20.00); Blood Urea Nitrogen 11.4 mg/dL (9.0-27.0); Calcium 8.8 mg/dL (8.7-10.3); Carbon Dioxide 23.2 mmol/L (21.6-31.8); Chloride 106 mmol/L (96-109); Glucose 126 mg/dL (70-110); Potassium 4.4 mmol/L (3.5-5.5); Sodium 141 mmol/L (135-145)
[2023-07-31 08:51] LABS: Basophils # (A) 0.07 X 10*3/uL (0.00-0.10); Basophils % (A) 0.9 %; Eosinophils # (A) 0.04 X 10*3/uL (0.04-0.35); Eosinophils % (A) 0.5 %; HCT 39.4 % (37.2-46.3); HGB 12.6 g/dL (12.0-15.0); Lymphocytes # (A) 0.92 X 10*3/uL (0.90-5.00); Lymphocytes % (A) 12.1 %; MCV 90.8 FL (80.0-97.0); Monocytes # (A) 0.58 X 10*3/uL (0.20-1.00); Monocytes % (A) 7.6 %; NRBC Per 100 WBC 0 X 10*3/uL (0.00-0.01); Neutrophils # (A) 5.99 X 10*3/uL (1.80-7.70); Neutrophils % (A) 78.5 %; Platelet Count 371 X 10*3/uL (140-440); RBC 4.34 X 10*6/uL (4.10-5.20); RDW 13.7 % (11.5-14.5); WBC 7.63 X 10*3/uL (4.50-10.00)
[2023-07-31] MEDS: CITALOPRAM HYDROBROMIDE 10 MG TAB PO SCH (09:23)
[2023-07-31] MEDS: NICOTINE 21MG/24HR PATCH TRANSDERM SCH (09:24)
[2023-07-31] MEDS: methylPREDNISolone SOD SUCCI 40 MG/ML 1 ML VIAL IV SCH (09:24)
[2023-07-31] MEDS: LEVOTHYROXINE 100 MCG TAB PO SCH (09:24)
[2023-07-31] MEDS: ALPRAZolam 0.25 MG TAB PO SCH (09:24)
[2023-07-31] MEDS: CLOPIDOGREL 75 MG TAB PO SCH (09:24)
[2023-07-31] MEDS: LACTULOSE 20 GM/30 ML CUP PO SCH (09:24)
[2023-07-31] MEDS: ENOXAPARIN 40 MG/0.4 ML SYRINGE SQ SCH (09:24)
--- NOTE | 2023-07-31 18:10 | P.PN ---
Progress Note - Text Progress Note Date: 07/31/23 Patient is a 78-year-old female with a PMH of COPD, paroxysmal A-fib, and hypothyroidism who presents to the emergency room with complaints of shortness of breath. Patient notes that she has been experiencing gradually worsening shortness of breath for the past 1 to 2 weeks. Of note, the patient was recently admitted for Pseudomonas bacteremia with severe fecal impaction and completed a 10-day course of ciprofloxacin and Flagyl on 07/27. She denies experiencing abdominal discomfort fever, chills, chest pain, nausea, vomiting. She does report persistent constipation with minimal bowel movements over the past several days. Upon EMS arrival, the patient was in respiratory distress with SpO2 of 92%. She was given breathing treatments enroute to the hospital which significantly alleviated her symptoms. She notes that her breathing has improved at the time of interview. Patient notes that she lives with her daughter and her family. Chest x-ray in the emergency room was consistent with chronic COPD with a KUB x- ray showing large stool burden with suspected upstream obstruction. EKG revealed sinus rhythm at 74 bpm with a first-degree AV block and no other ST/T wave changes noted as reviewed by me. Laboratory evaluation was remarkable for leukocytosis of 14.2, sodium 136, chloride 108, glucose 122, troponin less than 0.012, and proBNP 477. ED documentation reviewed and case discussed with ED provider. July 30: Laying in bed. Hungry. Some shortness of breath. Tired Active Medications Albuterol/Ipratropium (Ipratropium-Albuterol 3 Ml Neb) 3 ml INHALATION RT-Q4H [facility] Last Admin: 07/31/23 17:44 Dose: Not Given Albuterol/Ipratropium (Ipratropium-Albuterol 3 Ml Neb) 3 ml INHALATION RT-QID PRN PRN Reason: Shortness Of Breath Or Wheezing Alprazolam (Alprazolam 0.25 Mg Tab) 0.25 mg PO DAILY PRN PRN Reason: Anxiety Alprazolam (Alprazolam 0.25 Mg Tab) 0.25 mg PO DAILY [facility] Last Admin: 07/31/23 09:24 Dose: 0.25 mg Citalopram Hydrobromide (Citalopram Hydrobromide 10 Mg Tab) 30 mg PO DAILY [facility] Last Admin: 07/31/23 09:23 Dose: 30 mg Clopidogrel Bisulfate (Clopidogrel 75 Mg Tab) 75 mg PO DAILY [facility] Last Admin: 07/31/23 09:24 Dose: 75 mg Enoxaparin Sodium (Enoxaparin 40 Mg/0.4 Ml Syringe) 40 mg SQ DAILY [facility] Last Admin: 07/31/23 09:24 Dose: 40 mg Lactulose (Lactulose 20 Gm/30 Ml Cup) 20 gm PO DAILY PRN PRN Reason: Constipation Lactulose (Lactulose 20 Gm/30 Ml Cup) 20 gm PO DAILY [facility] Last Admin: 07/31/23 09:24 Dose: 20 gm Levothyroxine Sodium (Levothyroxine 100 Mcg Tab) 100 mcg PO DAILY@0630 [facility] Last Admin: 07/31/23 09:24 Dose: 100 mcg Methylprednisolone Sodium Succinate (Methylprednisolone Sod Succi 40 Mg/Ml 1 Ml Vial) 40 mg IV Q8HR [facility] Last Admin: 07/31/23 16:07 Dose: 40 mg Midodrine (Midodrine 5 Mg Tab) 2.5 mg PO BID [facility] Last Admin: 07/31/23 09:25 Dose: 2.5 mg Naloxone HCl (Naloxone 0.4 Mg/Ml 1 Ml Vial) 0.2 mg IV Q2M PRN PRN Reason: Opioid Reversal Nicotine (Nicotine 21mg/24hr Patch) 1 patch TRANSDERM DAILY [facility] Last Admin: 07/31/23 09:30 Dose: Not Given Risperidone (Risperidone 2 Mg Tab) 2 mg PO HS [facility] Last Admin: 07/30/23 22:40 Dose: 2 mg Physical exam On examination: 98.1, 78, 16, 99/59, 95% on 2 L GENERAL APPEARANCE: Laying in bed tired HEENT: Normal external appearance of nose and ear. Oral cavity normal. Hard of hearing EYES: Pupils equal. Conjunctiva normal. NECK: JVD not raised. Mass not palpable. RESPIRATORY: Respiratory effort increased, decreased breath sound CARDIOVASCULAR: First and second sounds normal. No edema. ABDOMEN: Soft. Liver and spleen not palpable. No tenderness. No mass palpable. PSYCHIATRY: Able to answer some simple questions MUSCULOSKELETAL: OA INVESTIGATIONS, reviewed in the clinical context: August 07: White count 7.6 hemoglobin 12.6 platelets 371 sodium 141 potassium 4.4 creatinine 0.7 Influenza type A, type B, RSV, COVID-19: Not detected Chest x-ray hyperinflation Assessment: -Acute COPD exacerbation with acute hypoxic respiratory failure IV Solu-Medrol. DuoNeb. 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 -Generalized anxiety disorder Continue Xanax 0.25 mg as needed, Celexa -Full code Past Medical History Past Medical History: Atrial Fibrillation, COPD, Thyroid Disorder Additional Past Medical History / Comment(s): Lupus History of Any Multi-Drug Resistant Organisms: None Reported Past Surgical History: Unable to Obtain Additional Past Surgical History / Comment(s): Polyp removed from throat Past Anesthesia/Blood Transfusion Reactions: No Reported Reaction Past Psychological History: No Psychological Hx Reported Smoking Status: Current every day smoker
--- NOTE | 2023-07-31 19:55 | P.GSCN ---
History of Present Illness Consult date: 07/31/23 Reason for Consult: Left-sided hearing loss Requesting physician: Americo Avila History of present illness: This is a 78-year-old female who has a forward day history of a sudden hearing loss in the left ear. She tells me that just suddenly in the left ear she lost much of her hearing. She still can hear somewhat out of the left ear but is markedly reduced. She denies any other otologic symptoms such as tinnitus, pain pressure drainage etc. Denies any vertigo. Denies any neurologic symptoms such as numbness weakness paralysis slurred speech memory loss etc. I been asked to consult regarding this sudden hearing loss in the left ear. Review of Systems - Constitutional Reports as per HPI - EENT Eyes: denies blurred vision, denies bulging eye, denies decreased vision, denies diplopia, denies discharge, denies dry eye, denies irritation, denies itching, denies pain, denies photophobia, denies loss of peripheral vision, denies loss of vision, denies tunnel vision/blind spots Ears: left: decreased hearing, deny: ear discharge, earache, tinnitus Ears, nose, mouth and throat: Reports as per HPI - Cardiovascular Reports as per HPI - Respiratory Reports as per HPI - Gastrointestinal Reports as per HPI - Genitourinary Genitourinary: Reports as per HPI Menstruation: Reports as per HPI - Musculoskeletal Reports as per HPI - Integumentary Reports as per HPI - Neurological Reports as per HPI Past Medical History Past Medical History: Atrial Fibrillation, COPD, Thyroid Disorder Additional Past Medical History / Comment(s): Lupus, Medical debility since [facility] 02/2022 History of Any Multi-Drug Resistant Organisms: None Reported Past Surgical History: Unable to Obtain Additional Past Surgical History / Comment(s): Polyp removed from throat Past Anesthesia/Blood Transfusion Reactions: No Reported Reaction Past Psychological History: No Psychological Hx Reported 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 Smoking Status: Current every day smoker Past Alcohol Use History: None Reported Past Drug Use History: None Reported - Past Family History Father Family Medical History: Cancer Medications and Allergies Home Medications Medication Instructions Recorded Confirmed Type Citalopram Hydrobromide [CeleXA] 30 mg PO DAILY 01/07/22 07/30/23 History Albuterol Nebulized [Ventolin 2.5 mg INHALATION RT-QID PRN 07/13/23 07/30/23 History Nebulized] Albuterol Sulfate [Albuterol 2 puff INHALATION RT-Q6H PRN 07/13/23 07/30/23 History Sulfate Hfa] Clopidogrel [Plavix] 75 mg PO DAILY 07/13/23 07/30/23 History Ipratropium/Albuter 20-100Mcg 1 puff INHALATION RT-QID 07/13/23 07/30/23 History [Combivent Respimat 20-100Mcg Inhaler] Lactulose 20 gm PO DAILY PRN 07/13/23 07/30/23 History Midodrine HCl [ProAmantine] 2.5 mg PO BID 07/13/23 07/30/23 History predniSONE 7.5 mg PO DAILY 07/13/23 07/30/23 History ALPRAZolam [Xanax] 0.25 mg PO DAILY #3 tab 07/18/23 07/30/23 Rx ALPRAZolam [Xanax] 0.25 mg PO DAILY PRN #3 tab 07/18/23 07/30/23 Rx diphenhydrAMINE [Benadryl] 25 mg PO QID PRN cap 07/18/23 07/30/23 Rx risperiDONE [RisperDAL] 2 mg PO HS #3 tab 07/18/23 07/30/23 Rx Levothyroxine Sodium 100 mcg PO DAILY #30 tab 07/19/23 07/30/23 Rx Nicotine 21Mg/24Hr Patch [Habitrol] 1 patch TRANSDERM DAILY 07/21/23 07/30/23 History Allergies Allergy/AdvReac Type Severity Reaction Status Date / Time procaine [From Novocain] Allergy Dyspnea & Verified 07/30/23 17:12 Hallucinations ciprofloxacin [From Cipro] AdvReac Rash/Hives Verified 07/30/23 17:12 Surgical - Exam Osteopathic Statement: *. No significant issues noted on an osteopathic structural exam other than those noted in the History and Physical/Consult. Vital Signs Temp Pulse Resp BP Pulse Ox 98.8 F 75 30 H 103/67 97 07/30/23 14:08 07/30/23 14:08 07/30/23 14:08 07/30/23 14:08 07/30/23 14:08 - General well developed, well nourished, no distress, no pain, cachectic - Eyes PERRL, normal ocular movement - ENT Head is normocephalic the face is symmetric there is no abnormal movements there is no tenderness to the sinuses or mastoids there is no nodules or eruptions or parasites in scalp. Auricles well-formed there is some wax on the right side no wax on the left tuning fork examination shows lateralization of the sound to the right on [place]. Mouth is unremarkable neck unremarkable no tumors or masses are noted nose is patent. normal pinna, normal nares, no congestion - Neck no masses, no bruits, no lymphadectomy, no venous distension - Integumentary no rash, no growths - Neurologic normal coordination, normal sensation - Musculoskeletal normal gait, normal posture - Psychiatric oriented to time, oriented to person, oriented to place, speech is normal, memory intact Results - Labs 07/31/23 05:28 07/31/23 05:28 Abnormal Lab Results - Last 24 Hours (Table) 07/31/23 07/31/23 Range/Units 05:28 05:28 MPV 9.0 L (9.5-12.2) FL Glucose 126 H (70-110) mg/dL Diabetes panel 07/31/23 Range/Units 05:28 Sodium 141 (135-145) mmol/L Potassium 4.4 (3.5-5.5) mmol/L Chloride 106 (96-109) mmol/L Carbon Dioxide 23.2 (21.6-31.8) mmol/L BUN 11.4 (9.0-27.0) mg/dL Creatinine 0.7 (0.6-1.5) mg/dL Glucose 126 H (70-110) mg/dL Calcium 8.8 (8.7-10.3) mg/dL Calcium panel 07/31/23 Range/Units 05:28 Calcium 8.8 (8.7-10.3) mg/dL Pituitary panel 07/31/23 Range/Units 05:28 Sodium 141 (135-145) mmol/L Potassium 4.4 (3.5-5.5) mmol/L Chloride 106 (96-109) mmol/L Carbon Dioxide 23.2 (21.6-31.8) mmol/L BUN 11.4 (9.0-27.0) mg/dL Creatinine 0.7 (0.6-1.5) mg/dL Glucose 126 H (70-110) mg/dL Calcium 8.8 (8.7-10.3) mg/dL Adrenal panel 07/31/23 Range/Units 05:28 Sodium 141 (135-145) mmol/L Potassium 4.4 (3.5-5.5) mmol/L Chloride 106 (96-109) mmol/L Carbon Dioxide 23.2 (21.6-31.8) mmol/L BUN 11.4 (9.0-27.0) mg/dL Creatinine 0.7 (0.6-1.5) mg/dL Glucose 126 H (70-110) mg/dL Calcium 8.8 (8.7-10.3) mg/dL Assessment and Plan (1) Sudden-onset sensorineural hearing loss Current Visit: Yes Status: Acute Code(s): H91.20 - SUDDEN IDIOPATHIC HEARING LOSS, UNSPECIFIED EAR SNOMED Code(s): 399872149 Plan: This patient appears to have a left-sided sudden sensorineural hearing loss. Treatment is with the use of steroids which she is already on. She is currently receiving 40 mg of Solu-Medrol which is a treatment to be used for this sudden sensorineural hearing loss. I am recommending that after this patient get discharged that she seen in the office for a formal audiometric evaluation in a sound proof whitaker by my relations mgr. I will be retiring next week and my partner Dr. Fitzpatrick will be taking over for me. Time with Patient: Greater than 30
[2023-07-31 21:47] VITALS: RESP 17
[2023-08-01 07:56] VITALS: BP 115/64; TEMP 97.5
[2023-08-01 11:19] VITALS: PULSE 72
--- NOTE | 2023-08-01 11:31 | P.PN ---
Subjective Progress Note Date: 08/01/23 Patient is a 78-year-old white female with past medical history significant for COPD, current ongoing tobacco smoker, hypothyroidism, atrial fibrillation. Her primary care provider is a Dr. Boswell out of [place]. The patient herself is not a great historian. Of note, patient had a recent hospitalization earlier this month with a similar presentation, ended up having a fecal impaction and was disimpacted. She was also noted to have pseudomonal bacteremia. Treated inpatient with IV Zosyn and then transitioned to 10-day course of oral ciprofloxacin to be completed outpatient. She lives with her daughter. Yesterday evening, patient was found to be short of breath while at home. Her daughter had called EMS, and on arrival SpO2 was noted to be 92% on room air and the patient was very tachypneic. Reportedly wheezing. Patient is currently in the emergency department, room 13. She is on room air, in no acute respiratory distress. SpO2 is 96%. Afebrile. Nontachycardic. Blood pressure norm otensive. Chest x-ray on arrival does not show any acute cardiopulmonary disease process. There is hyperinflation and flattening of the diaphragm consistent with COPD. She utilizes Combivent inhaler at home. States that her shortness of breath started a long time ago, and is unable to elaborate on more recent events. She continues to smoke cigarettes, approximately 1 pack/day. Denies any URI-like symptoms. Denies any fevers, coughing, sputum production, chest pain. She continues to have issues with constipation, last bowel movement was apparently 4 days ago. Currently denies any abdominal pain, nausea or vomiting. KUB x-ray showed large stool burden in the rectum with suspected upstr eam obstruction in gaseous dilation of the bowel. She did receive an enema while in the emergency department, producing a moderate amount of stool. Abdomen is now flat, nondistended, and nontender. CBC on arrival: WBC count 14.2, hemoglobin 13.1, hematocrit 40.6, platelets 400. BMP unremarkable. EKG shows a supraventricular rhythm without any acute ischemic changes. Troponin less than 0.012. NT proBNP 477. Vital signs are stable. The patient is seen today August 01, 2023 in follow-up on the regular medical floor. She is currently resting comfortably in bed. Awake and alert in no acute distress. Doing quite a bit better today compared to yesterday. She is maintaining O2 saturations in the 90s on 2 L/min per nasal cannula. She is afebrile. Hemodynamically stable. She is continued on DuoNeb inhalations and Solu-Medrol. Lovenox for DVT prophylaxis. NicoDerm patch in place. Her viral screen was negative. Objective - Vital Signs Vital signs: Vital Signs Temp 97.5 F L 08/01/23 07:00 Pulse 72 08/01/23 11:19 Resp 17 08/01/23 07:00 BP 115/64 08/01/23 07:00 Pulse Ox 98 08/01/23 08:23 FiO2 Intake & Output 07/31/23 08/01/23 08/01/23 18:59 06:59 18:59 Intake Total 236 854 Balance 236 854 Weight 63.503 kg Intake: Oral 236 854 Other: Voiding Method Bedpan Bedpan Diaper Diaper # Voids 2 1 # Bowel Movements 1 0 - Exam GENERAL EXAM: Alert, 78-year-old female, delayed verbal response, on 2 L nasal cannula, comfortable in no apparent distress. HEAD: Normocephalic and atraumatic EYES: Normal reaction of pupils, equal size. NOSE: Clear with pink turbinates. THROAT: No erythema or exudates. NECK: No masses, no JVD. CHEST: No chest wall deformity. LUNGS: Equal air entry with minimal scattered rhonchi bilaterally and throughout. No conversational dyspnea. CVS: S1 and S2 normal with no audible murmur, regular rhythm. No extra heart sounds ABDOMEN: Abdomen flat and nondistended, active bowel sounds, no guarding or rigidity, no appreciated organomegaly. SPINE: No scoliosis or deformity SKIN: No rashes CENTRAL NERVOUS SYSTEM: No focal deficits, tone is normal in all 4 extremities. EXTREMITIES: There is no peripheral edema, clubbing, or cyanosis. Peripheral pulses are intact. - Labs CBC & Chem 7: 07/31/23 05:28 07/31/23 05:28 Assessment and Plan Assessment: Acute dyspnea, possibly secondary to mild acute COPD exacerbation, chest x-ray does not show any focal infiltrates or any acute cardiopulmonary process, there is hyperinflation and flattening of the diaphragm consistent with COPD. Patient denies any infectious-like symptoms. Viral screen negative Fecal impaction, status post enema and resolution of symptoms Acute leukocytosis, possibly reactive to above, recovered Recent treatment for pseudomonal aeruginosa bacteremia, reportedly completed a course of treatment with ciprofloxacin Chronic ongoing tobacco dependence, reportedly current 1 pack/day smoker History of COVID-19 pneumonia History of paroxysmal atrial fibrillation, not currently on any anticoagulation History of hypothyroidism Plan: The patient was seen and evaluated Medications reviewed Stable and on 2 L nasal cannula Educated regarding smoking cessation NicoDerm patch in place Continue her home pulmonary medications Complete a prednisone taper Plan is for home with possible home care I have personally seen and examined the patient, performed the documentation and the assessment and plan as written. Number of minutes spent on the visit: 10.
[2023-08-01] MEDS: ALPRAZolam 0.25 MG TAB PO PRN (13:09)
--- NOTE | 2023-08-01 17:09 | P.DS ---
Providers Date of admission: 07/30/23 19:27 Expected date of discharge: 08/01/23 Attending physician: Americo Avila Consults: 07/30/23 22:29 Consult Physician Urgent Consulting Provider: Deondre Barlow Consult Reason/Comments: COPD Do you want consulting provider notified?: Yes 07/31/23 12:27 Consult Physician Urgent Consulting Provider: Christian Keita Reason/Comments: Recent hearing loss Do you want consulting provider notified?: Yes Primary care physician: [facility] Course: Patient is a 78-year-old female with a PMH of COPD, paroxysmal A-fib, and hypothyroidism who presents to the emergency room with complaints of shortness of breath. Patient notes that she has been experiencing gradually worsening shortness of breath for the past 1 to 2 weeks. Of note, the patient was recently admitted for Pseudomonas bacteremia with severe fecal impaction and completed a 10-day course of ciprofloxacin and Flagyl on 07/27. She denies experiencing abdominal discomfort fever, chills, chest pain, nausea, vomiting. She does report persistent constipation with minimal bowel movements over the past several days. Upon EMS arrival, the patient was in respiratory distress with SpO2 of 92%. She was given breathing treatments enroute to the hospital which significantly alleviated her symptoms. She notes that her breathing has improved at the time of interview. Patient notes that she lives with her daughter and her family. Chest x-ray in the emergency room was consistent with chronic COPD with a KUB x- ray showing large stool burden with suspected upstream obstruction. EKG revealed sinus rhythm at 74 bpm with a first-degree AV block and no other ST/T wave changes noted as reviewed by me. Laboratory evaluation was remarkable for leukocytosis of 14.2, sodium 136, chloride 108, glucose 122, troponin less than 0.012, and proBNP 477. ED documentation reviewed and case discussed with ED provider. July 30: Laying in bed. Hungry. Some shortness of breath. Tired July 31: Patient had decreased hearing in the left ear for last [address] Keita from [facility]. [place] to be sensorineural hearing loss. Follow-up in the office. Otherwise patient doing fair. Discharged with tapering dose of steroids Physical exam Vitals: 97.571, 17, 1 one 5 x 64, 98% on 2 L GENERAL APPEARANCE: Reclining in bed comfortable HEENT: Normal external appearance of nose and ear. Oral cavity normal. Hard of hearing-especially left ear EYES: Pupils equal. Conjunctiva normal. NECK: JVD not raised. Mass not palpable. RESPIRATORY: Respiratory effort increased, decreased breath sound CARDIOVASCULAR: First and second sounds normal. No edema. ABDOMEN: Soft. Liver and spleen not palpable. No tenderness. No mass palpable. PSYCHIATRY: Able to answer some simple questions MUSCULOSKELETAL: OA INVESTIGATIONS, reviewed in the clinical context: August 07: White count 7.6 hemoglobin 12.6 platelets 371 sodium 141 potassium 4.4 creatinine 0.7 Influenza type A, type B, RSV, COVID-19: Not detected Chest x-ray hyperinflation Assessment: -Acute COPD exacerbation with acute hypoxic respiratory failure: Better IV Solu-Medrol. DuoNeb. Every 4 Steroid taper -Acute hypoxic respiratory failure from COPD exacerbation in a current smoker: Better Currently 2 L nasal cannula -Severe secondary pulmonary hypertension due to COPD -Nicotine dependency Nicotine patch -Hearing loss specially in the left ear Seen by ENT Dr. Keita. Sensorineural hearing loss Follow-up with office -Lupus prednisone 7.5 mg daily -Paroxysmal atrial fibrillation, currently sinus rhythm -Chronic hypotension Midodrine -Hypothyroidism Synthroid 100 mcg a day. -Generalized anxiety disorder Continue Xanax 0.25 mg as needed, Celexa -Full code Disposition: Home Past Medical History Past Medical History: Atrial Fibrillation, COPD, Thyroid Disorder Additional Past Medical History / Comment(s): Lupus History of Any Multi-Drug Resistant Organisms: None Reported Past Surgical History: Unable to Obtain Additional Past Surgical History / Comment(s): Polyp removed from throat Past Anesthesia/Blood Transfusion Reactions: No Reported Reaction Past Psychological History: No Psychological Hx Reported Smoking Status: Current every day smoker Plan - Discharge Summary Discharge Rx Participant: No New Discharge Prescriptions: New predniSONE 10 mg PO DAILY #30 tab Continue Ipratropium/Albuter 20-100Mcg [Combivent Respimat 20-100Mcg Inhaler] 1 puff INHALATION RT-QID Albuterol Sulfate [Albuterol Sulfate Hfa] 2 puff INHALATION RT-Q6H PRN PRN Reason: Shortness Of Breath Albuterol Nebulized [Ventolin Nebulized] 2.5 mg INHALATION RT-QID PRN PRN Reason: Shortness Of Breath predniSONE 7.5 mg PO DAILY Clopidogrel [Plavix] 75 mg PO DAILY ALPRAZolam [Xanax] 0.25 mg PO DAILY PRN #3 tab PRN Reason: Anxiety Nicotine 21Mg/24Hr Patch [Habitrol] 1 patch TRANSDERM DAILY Citalopram Hydrobromide [CeleXA] 30 mg PO DAILY Lactulose 20 gm PO DAILY PRN PRN Reason: Constipation Midodrine HCl [ProAmantine] 2.5 mg PO BID diphenhydrAMINE [Benadryl] 25 mg PO QID PRN cap PRN Reason: Itching risperiDONE [RisperDAL] 2 mg PO HS #3 tab ALPRAZolam [Xanax] 0.25 mg PO DAILY #3 tab Levothyroxine Sodium 100 mcg PO DAILY #30 tab Discharge Medication List Citalopram Hydrobromide [CeleXA] 30 mg PO DAILY 01/07/22 [History] Albuterol Nebulized [Ventolin Nebulized] 2.5 mg INHALATION RT-QID PRN 07/13/23 [History] Albuterol Sulfate [Albuterol Sulfate Hfa] 2 puff INHALATION RT-Q6H PRN 07/13/23 [History] Clopidogrel [Plavix] 75 mg PO DAILY 07/13/23 [History] Ipratropium/Albuter 20-100Mcg [Combivent Respimat 20-100Mcg Inhaler] 1 puff INHALATION RT-QID 07/13/23 [History] Lactulose 20 gm PO DAILY PRN 07/13/23 [History] Midodrine HCl [ProAmantine] 2.5 mg PO BID 07/13/23 [History] predniSONE 7.5 mg PO DAILY 07/13/23 [History] ALPRAZolam [Xanax] 0.25 mg PO DAILY #3 tab 07/18/23 [Rx] ALPRAZolam [Xanax] 0.25 mg PO DAILY PRN #3 tab 07/18/23 [Rx] diphenhydrAMINE [Benadryl] 25 mg PO QID PRN cap 07/18/23 [Rx] risperiDONE [RisperDAL] 2 mg PO HS #3 tab 07/18/23 [Rx] Levothyroxine Sodium 100 mcg PO DAILY #30 tab 07/19/23 [Rx] Nicotine 21Mg/24Hr Patch [Habitrol] 1 patch TRANSDERM DAILY 07/21/23 [History] predniSONE 10 mg PO DAILY #30 tab 08/01/23 [Rx] Follow up Appointment(s)/Referral(s): Christian Keita DO [Doctor of Osteopathic Medicine] - 1 Week (left ear hearing loss. Please schedule follow up with Dr Seay.) [facility] [NON-STAFF] - As Needed Rickey Boswell MD [Primary Care Provider] - 1-2 days Discharge Disposition: HOME WITH HOME HEALTH SERVICES
== END 2023-08-01 13:45 | disposition home health service (06) ==
LOC: EC 14:05 → 1SOBS 19:27 → 6NMEDSUR 21:03
PROVIDERS: ADMIT Hospitalist; ATTEND Hospitalist
DX: J44.1 Chronic obstructive pulmonary disease with (acute) exacerbation (principal); J96.01 Acute respiratory failure with hypoxia; K56.41 Fecal impaction; I27.23 Pulmonary hypertension due to lung diseases and hypoxia; H91.22 Sudden idiopathic hearing loss, left ear; I48.0 Paroxysmal atrial fibrillation; E03.9 Hypothyroidism, unspecified; I44.0 Atrioventricular block, first degree; M32.9 Systemic lupus erythematosus, unspecified; I95.89 Other hypotension; F41.1 Generalized anxiety disorder; F17.210 Nicotine dependence, cigarettes, uncomplicated; Z79.02 Long term (current) use of antithrombotics/antiplatelets; Z79.890 Hormone replacement therapy; Z79.52 Long term (current) use of systemic steroids; Z79.899 Other long term (current) drug therapy; Z88.4 Allergy status to anesthetic agent; Z88.1 Allergy status to other antibiotic agents; Z86.19 Personal history of other infectious and parasitic diseases; Z71.6 Tobacco abuse counseling; Z86.16 Personal history of COVID-19; Z87.01 Personal history of pneumonia (recurrent); Z11.52 Encounter for screening for COVID-19; Z11.59 Encounter for screening for other viral diseases
CPT/HCPCS: 96376 ×2; 96372 ×2; 96365; 96366; 96375; 99285; 36415; 94640 ×5; 94760; 93005; 83880; 80053; 80048; 83605; 84484; 85025 ×2; 85610; 85730; 87636; 71046; 74018; G0378 ×4; J1650 ×2; J3475; J2919 ×2